=== PATIENT | male | born 1995 | race Two or more races ===

== ENCOUNTER 2017-01-17 08:40 | Emergency (ER) | payer MEDICAID ==
[~2017-01-17] VITALS: Ht 175.3 cm; Wt 56.7 kg
[2017-01-17 09:19] LABS: Basophils # (auto) 0 uL; Basophils % (auto) 0.5 % (0.0-2.0); Eosinophils # (auto) 0.2 uL; Eosinophils % (auto) 3.7 % (0.0-7.0); Hematocrit 43.8 % (41.0-53.0); Hemoglobin 15.3 g/dL (13.5-17.5); Lymphocytes # (auto) 2.5 uL; Lymphocytes % (auto) 37.5 % (10.0-50.0); Mean Corpuscular Hemoglobin 30.1 pg (28.0-32.0); Mean Corpuscular Hgb Conc. 34.8 g/dL (32.0-36.0); Mean Corpuscular Volume 86.4 fL (80.0-100.0); Mean Platelet Volume 8.8 fL (7.4-10.4); Monocytes # (auto) 0.7 uL; Monocytes % (auto) 10.7 % (0.0-12.0); Neutrophils # (auto) 3.2 uL; Neutrophils % (auto) 47.6 % (37.0-80.0); Platelet Count (auto) 277 10^3/uL (140-450); Red Cell Distribution Width 12.5 % (11.6-16.0); White Blood Cell 6.7 10^3/uL (4.4-10.8)
[2017-01-17 09:42] LABS: Albumin 4.1 g/dL (3.4-5.0); BUN/Creatinine Ratio 14.5; Bilirubin, Total 0.4 mg/dL (0.2-1.0); Calcium 8.7 mg/dL (8.5-10.1); Potassium 3.8 mmol/L (3.5-5.1); Total Protein 6.6 g/dL (6.4-8.2)
[2017-01-17 09:56] LABS: Urine Bilirubin Negative (Negative); Urine Blood Negative /uL (Negative); Urine Color Yellow (Yellow); Urine Nitrite Negative (Negative); Urine RBC 1 /hpf (0 - 3); Urine Squamous Epithelial Cell FEW /hpf (<5); Urine Urobilinogen Normal (Negative); Urine pH 5.5 (5.0-8.0)
[2017-01-17 09:57] LABS: Urine Glucose 4+ mg/dL (Normal); Urine Ketone 2+ (Negative)
[2017-01-17] MEDS ORDERED: SODIUM CHLORIDE 0.9% 1,000 ML IV ONE (12:07)
[2017-01-17 14:06] VITALS: BP 93/54
== END 2017-01-17 16:04 | disposition home or self-care (01) ==
LOC: ER 08:43
DX: E11.65 Type 2 diabetes mellitus with hyperglycemia (principal); Z88.0 Allergy status to penicillin
CPT/HCPCS: 36415; 71020; 80053; 81001; 82962; 83735; 84443; 85025; 96360; 99285; J7030

== ENCOUNTER 2017-01-19 22:42 | Inpatient (IN) | payer MEDICAID ==
[~2017-01-19] VITALS: Ht 175.3 cm; Wt 53.3 kg
[2017-01-19 23:58] LABS: Basophils # (auto) 0.1 uL; Basophils % (auto) 1.5 % (0.0-2.0); Eosinophils # (auto) 0.2 uL; Eosinophils % (auto) 2.4 % (0.0-7.0); Hematocrit 47.8 % (41.0-53.0); Hemoglobin 16.5 g/dL (13.5-17.5); Lymphocytes # (auto) 3.3 uL; Lymphocytes % (auto) 36.5 % (10.0-50.0); Mean Corpuscular Hgb Conc. 34.4 g/dL (32.0-36.0); Mean Corpuscular Volume 87.3 fL (80.0-100.0); Mean Platelet Volume 9.2 fL (7.4-10.4); Monocytes # (auto) 1.1 uL; Monocytes % (auto) 11.7 % (0.0-12.0); Neutrophils # (auto) 4.4 uL; Neutrophils % (auto) 47.9 % (37.0-80.0); Platelet Count (auto) 272 10^3/uL (140-450); Red Cell Distribution Width 11.9 % (11.6-16.0); White Blood Cell 9.1 10^3/uL (4.4-10.8)
[2017-01-20] VITALS (8 sets, daily range): BP systolic 100–112; BP diastolic 47–61
[2017-01-20 00:06] LABS: Albumin 4.6 g/dL (3.4-5.0); Calcium 8.9 mg/dL (8.5-10.1); Potassium 4.3 mmol/L (3.5-5.1)
[2017-01-20 00:09] LABS: Bilirubin, Total 0.5 mg/dL (0.2-1.0); Total Protein 7.6 g/dL (6.4-8.2)
[2017-01-20 00:15] LABS: BUN/Creatinine Ratio 14.4
[2017-01-20] MEDS ORDERED: SODIUM CHLORIDE 0.9% 2,000 ML IV ONE (00:15)
[2017-01-20] MEDS ORDERED: InsuLIN REG 1unit/0.01ml Soln (100units/ml) IV ONE (00:15)
[2017-01-20 01:25] LABS: Urine RBC None Seen /hpf (0 - 3)
[2017-01-20 01:50] LABS: Urine Bilirubin Negative (Negative); Urine Blood Negative /uL (Negative); Urine Color Yellow (Yellow); Urine Glucose 4+ mg/dL (Normal); Urine Ketone 1+ (Negative); Urine Nitrite Negative (Negative); Urine Urobilinogen Normal (Negative)
[2017-01-20] MEDS ORDERED: TEMAZEPAM 15 MG CAP PO PRN (03:15)
[2017-01-20] MEDS ORDERED: ACETAMINOPHEN 325 MG TAB PO PRN (03:15)
[2017-01-20] MEDS ORDERED: DEXTROSE (50%) 50ML SYRG IV PRN (03:15)
[2017-01-20] MEDS ORDERED: ONDANSETRON HCL 4 MG/2 ML VIAL IV PRN (03:15)
[2017-01-20] MEDS: ACCU-CHEK COMFORT CURVE STRIP VI SCH ×5 (03:39→19:48)
[2017-01-20] MEDS: InsuLIN REG 1unit/0.01ml Soln (100units/ml) SC SCH ×5 (03:39→19:52)
[2017-01-20] MEDS: SODIUM CHLORIDE 0.9% 1,000 ML IV SCH ×2 (03:42→15:43)
[2017-01-20] MEDS: FAMOTIDINE 20 MG TAB PO SCH ×2 (13:11→19:48)
[2017-01-20] MEDS ORDERED: INSUINJ37 SUBCUT ×2 (20:55)
[2017-01-20] MEDS ORDERED: METF-312 PO ×2 (20:55)
== END 2017-01-20 21:45 | disposition home or self-care (01) | DRG 420 ==
LOC: ER 22:47 → OVERFLOW 22:48 → WEST WING 01-20 04:30
PROVIDERS: ADMIT Nurse Practitioner; ATTEND Internal Medicine
DX: E10.65 Type 1 diabetes mellitus with hyperglycemia (principal); E86.0 Dehydration; Z83.3 Family history of diabetes mellitus; Z88.0 Allergy status to penicillin; Z87.898 Personal history of other specified conditions
CPT/HCPCS: 36415; 36600; 71010; 80053; 81001; 82010; 82805; 82962; 83036; 83735; 85025; 87081; 96361; 96374; J1815

== ENCOUNTER 2017-07-24 21:55 | Emergency (ER) | payer SELFPAY ==
[~2017-07-24] VITALS: Ht 175.3 cm; Wt 63.5 kg
[~2017-07-24 21:55] MED LIST: INSUINJ37 SUBCUT; METF-370 PO
[2017-07-24 22:08] VITALS: BP 113/76
== END 2017-07-25 07:42 | disposition left against medical advice (07) ==
LOC: EDBD 21:55 → ER 22:35
DX: F10.10 Alcohol abuse, uncomplicated (principal); Z53.21 Procedure and treatment not carried out due to patient leaving prior to being seen by health care provider
CPT/HCPCS: 82962; J7030

== ENCOUNTER 2017-12-24 13:27 | Emergency (ER) | payer MEDICAID ==
[~2017-12-24] VITALS: Ht 172.7 cm; Wt 63.5 kg
[2017-12-24] MEDS ORDERED: SODIUM CHLORIDE 0.9% 1,000 ML IV ONE ×2 (13:43)
[2017-12-24 13:54] VITALS: BP 107/91
[2017-12-24 14:52] LABS: Basophils # (auto) 0 uL; Basophils % (auto) 0.3 % (0.0-2.0); Eosinophils # (auto) 0.1 uL; Eosinophils % (auto) 1.3 % (0.0-7.0); Hemoglobin 15.8 g/dL (13.5-17.5); Lymphocytes # (auto) 1.3 uL; Mean Corpuscular Hemoglobin 30.5 pg (28.0-32.0); Mean Corpuscular Hgb Conc. 34.2 g/dL (32.0-36.0); Mean Corpuscular Volume 89.2 fL (80.0-100.0); Monocytes # (auto) 1.1 uL; Neutrophils # (auto) 8.3 uL; Neutrophils % (auto) 76.4 % (37.0-80.0); Nucleated Red Blood Cells % 0.1 %; Platelet Count (auto) 190 10^3/uL (140-450); Red Blood Cells 5.16 10^6/uL (4.5-5.90); Red Cell Distribution Width 13.1 % (11.8-14.3); White Blood Cell 10.8 10^3/uL (4.4-10.8)
[2017-12-24 15:12] LABS: Albumin 3.9 g/dL (3.4-5.0); BUN/Creatinine Ratio 23.7; Bilirubin, Total 0.3 mg/dL (0.2-1.0); Calcium 8.3 mg/dL (8.5-10.1); Total Protein 7.1 g/dL (6.4-8.2)
== END 2017-12-24 22:12 | disposition left against medical advice (07) ==
LOC: EDBD 13:27 → ER 13:27
DX: K52.9 Noninfective gastroenteritis and colitis, unspecified (principal); E11.9 Type 2 diabetes mellitus without complications; Z88.0 Allergy status to penicillin; R53.1 Weakness
CPT/HCPCS: 36415; 74176; 80053; 85025

== ENCOUNTER 2018-02-21 23:50 | Emergency (ER) | payer SELFPAY ==
[~2018-02-21] VITALS: Ht 172.7 cm; Wt 63.5 kg
[2018-02-22 00:07] VITALS: BP 120/66
[2018-02-22 00:32] LABS: Urine Bacteria NONE SEEN /hpf (None Seen); Urine Blood Negative /uL (Negative); Urine Specific Gravity 1.037 (1.001-1.035); Urine WBC <1 /hpf (0 - 3)
[2018-02-22 00:46] LABS: Amphetamine Screen, Urine POSITIVE (NEGATIVE); Barbiturate Scree,Urine NEGATIVE (NEGATIVE); Benzodiazephine Screen, Urine NEGATIVE (NEGATIVE); Cannabinoid Screen, Urine POSITIVE (NEGATIVE); Cocaine Screen, Urine NEGATIVE (NEGATIVE); Opiate Scree,Urine NEGATIVE (NEGATIVE); Phencyclidine Screen, Urine NEGATIVE (NEGATIVE)
[2018-02-22 01:02] LABS: Basophils # (auto) 0.1 uL; Basophils % (auto) 0.8 % (0.0-2.0); Eosinophils # (auto) 0.5 uL; Eosinophils % (auto) 5.3 % (0.0-7.0); Hematocrit 49.4 % (41.0-53.0); Hemoglobin 17.4 g/dL (13.5-17.5); Lymphocytes # (auto) 4.1 uL; Lymphocytes % (auto) 39.9 % (10.0-50.0); Mean Corpuscular Hemoglobin 31.5 pg (28.0-32.0); Mean Corpuscular Hgb Conc. 35.2 g/dL (32.0-36.0); Mean Corpuscular Volume 89.6 fL (80.0-100.0); Monocytes # (auto) 1.1 uL; Monocytes % (auto) 10.8 % (0.0-12.0); Neutrophils # (auto) 4.4 uL; Neutrophils % (auto) 43.2 % (37.0-80.0); Platelet Count (auto) 234 10^3/uL (140-450); Red Blood Cells 5.51 10^6/uL (4.5-5.90); Red Cell Distribution Width 13.5 % (11.8-14.3); White Blood Cell 10.2 10^3/uL (4.4-10.8)
[2018-02-22 01:16] LABS: Albumin 4.5 g/dL (3.4-5.0); BUN/Creatinine Ratio 16.1; Calcium 8.6 mg/dL (8.5-10.1)
[2018-02-22 01:20] LABS: Bilirubin, Total 0.4 mg/dL (0.2-1.0); Total Protein 7.6 g/dL (6.4-8.2)
== END 2018-02-22 02:00 | disposition left against medical advice (07) ==
LOC: ER 23:52
DX: R11.2 Nausea with vomiting, unspecified (principal); R10.84 Generalized abdominal pain; Z53.21 Procedure and treatment not carried out due to patient leaving prior to being seen by health care provider
CPT/HCPCS: 36415; 74176; 80053; 80307; 81001; 85025

== ENCOUNTER 2019-05-27 06:45 | Inpatient (IN) | payer MEDICAID ==
[~2019-05-27] VITALS: Ht 175.3 cm; Wt 55.1 kg
[2019-05-27 08:40] LABS: Basophils # (auto) 0.1 uL; Eosinophils # (auto) 0 uL; Hemoglobin 19.2 g/dL (13.5-17.5); Lymphocytes # (auto) 1.5 uL; Nucleated Red Blood Cells % 0.2 %
[2019-05-27 08:43] LABS: Basophils % (auto) 0.3 % (0.0-2.0); Mean Corpuscular Hemoglobin 31.2 pg (28.0-32.0); Mean Corpuscular Hgb Conc. 32.7 g/dL (32.0-36.0); Mean Corpuscular Volume 95.4 fL (80.0-100.0); Monocytes # (auto) 1.6 uL; Neutrophils # (auto) 16.3 uL; Neutrophils % (auto) 83.7 % (37.0-80.0); Platelet Count (auto) 345 10^3/uL (140-450); Red Blood Cells 6.16 10^6/uL (4.5-5.90); Red Cell Distribution Width 13.9 % (11.8-14.3); White Blood Cell 19.4 10^3/uL (4.4-10.8)
[2019-05-27 08:51] LABS: Hematocrit 58.8 % (41.0-53.0)
[2019-05-27] MEDS ORDERED: InsuLIN R (HUMAN) 100 UNITS in SODIUM CHL 0.9% 99 ML IV SCH ×2 (08:59→11:35)
[2019-05-27] MEDS ORDERED: SODIUM CHLORIDE 0.9% 1,000 ML IV ONE ×2 (08:59)
[2019-05-27] MEDS ORDERED: SODIUM CHLORIDE 0.9% 1,000 ML IV SCH ×4 (08:59→15:35)
[2019-05-27] MEDS: ACCU-CHEK COMFORT CURVE STRIP VI SCH ×7 (09:00→20:00)
[2019-05-27] MEDS ORDERED: DEXTROSE (50%) 50ML SYRG IV PRN ×3 (09:00→18:30)
[2019-05-27 09:04] LABS: Albumin 4.8 g/dL (3.4-5.0); Calcium 8.8 mg/dL (8.5-10.1)
[2019-05-27 09:12] LABS: Bilirubin, Total 0.6 mg/dL (0.2-1.0); Total Protein 9.3 g/dL (6.4-8.2)
[2019-05-27 09:18] LABS: Urine Bacteria NONE SEEN /hpf (None Seen); Urine Blood Negative /uL (Negative); Urine Specific Gravity 1.026 (1.001-1.035); Urine WBC 3 /hpf (0 - 3)
[2019-05-27 09:21] LABS: BUN/Creatinine Ratio 16.9
[2019-05-27 10:30] LABS: Basophils # (auto) 0 uL; Basophils % (auto) 0.1 % (0.0-2.0); Eosinophils # (auto) 0 uL; Hemoglobin 18.8 g/dL (13.5-17.5); Lymphocytes # (auto) 1.4 uL
[2019-05-27 10:33] LABS: Mean Corpuscular Hemoglobin 31.2 pg (28.0-32.0); Mean Corpuscular Hgb Conc. 32.7 g/dL (32.0-36.0); Mean Corpuscular Volume 95.5 fL (80.0-100.0); Monocytes % (auto) 5.6 % (0.0-12.0); Neutrophils % (auto) 86.3 % (37.0-80.0); Nucleated Red Blood Cells % 0.1 %; Platelet Count (auto) 302 10^3/uL (140-450); Red Blood Cells 6.01 10^6/uL (4.5-5.90); Red Cell Distribution Width 14.4 % (11.8-14.3); White Blood Cell 17.4 10^3/uL (4.4-10.8)
[2019-05-27 10:46] LABS: Hematocrit 57.4 % (41.0-53.0)
[2019-05-27 11:12] LABS: Potassium 5.5 mmol/L (3.5-5.1)
[2019-05-27 11:13] LABS: BUN/Creatinine Ratio 17.4; Calcium 7.9 mg/dL (8.5-10.1); Magnesium 2.5 mg/dL (1.6-2.6); Phosphorus 4.2 mg/dL (2.5-4.90)
[2019-05-27] MEDS ORDERED: cefTRIAXone 1GM/50ML D5W 50 ML IV ONE ×2 (11:45→12:15)
[2019-05-27] MEDS ORDERED: MORPHINE SULFATE 4 MG/ML SYR/VIAL IV PRN (11:45)
[2019-05-27] MEDS ORDERED: ACETAMINOPHEN 500 MG TAB PO PRN (11:45)
[2019-05-27] MEDS ORDERED: MORPHINE SULF INJ 2 MG/ML SYRINGE 1ML IV PRN (11:45)
[2019-05-27] MEDS ORDERED: PROMETHAZINE HCL 25 MG/ML 1ML IV PRN (11:45)
[2019-05-27] MEDS ORDERED: NITROGLYCERIN 0.4 MG SL TAB SL PRN (11:45)
[2019-05-27] MEDS ORDERED: traMADol HCL 50 MG TAB PO PRN (11:45)
[2019-05-27] MEDS: SODIUM CHLORIDE 0.9% 1,000 ML IV SCH ×4 (12:03→19:30)
[2019-05-27] MEDS: FAMOTIDINE (10MG/ML) 2ML VL IV SCH (12:10)
[2019-05-27 17:58] LABS: BUN/Creatinine Ratio 20.9; Calcium 7.8 mg/dL (8.5-10.1); Potassium 4.3 mmol/L (3.5-5.1)
--- NOTE | 2019-05-27 20:00 | NUR ---
RECEIVED PATIENT FROM ED, AWAKE, ALERT, ORIENTED X4, SPEAKS CLEARLY, AMBULATORY. ON TELEMETRY #14 SINUS RHYTHM AT 80'S. NO S/S OF RESPIRATORY DISTRESS, DENIES SOB AND CHEST PAIN. DENIES ABDOMINAL PAIN, NAUSEA AND VOMITING. SKIN IS INTACT. ORIENTED ON PLAN OF CARE. BED IS LOCKED AND IN LOWEST LEVEL, SIDE RAILS UP X2, CALL LIGHT WITHIN REACH. WILL CONTINUE TO MONITOR.
[2019-05-27 20:30] VITALS: BP 105/62
[2019-05-27] MEDS: InsuLIN REG 1unit/0.01ml Soln (100units/ml) SC SCH (20:48)
[2019-05-27 21:56] LABS: BUN/Creatinine Ratio 18.6; Calcium 7.6 mg/dL (8.5-10.1); Potassium 4.6 mmol/L (3.5-5.1)
[2019-05-27 22:00] VITALS: BP 105/62
[2019-05-28] MEDS: FAMOTIDINE (10MG/ML) 2ML VL IV SCH ×2 (00:30→11:57)
[2019-05-28] MEDS: InsuLIN REG 1unit/0.01ml Soln (100units/ml) SC SCH ×5 (00:31→16:00)
[2019-05-28] MEDS: SODIUM CHLORIDE 0.9% 1,000 ML IV SCH ×2 (02:41→14:15)
[2019-05-28 04:17] LABS: BUN/Creatinine Ratio 23.8; Calcium 7.8 mg/dL (8.5-10.1); Potassium 3.4 mmol/L (3.5-5.1)
[2019-05-28] MEDS: ACCU-CHEK COMFORT CURVE STRIP VI SCH ×5 (04:21→15:31)
[2019-05-28 04:30] VITALS: BP 96/49
[2019-05-28 06:16] VITALS: BP 110/77
--- NOTE | 2019-05-28 07:25 | NUR ---
CARE ENDORSED TO AM SHIFT RN
[2019-05-28 07:57] LABS: BUN/Creatinine Ratio 23.4; Calcium 7.6 mg/dL (8.5-10.1); Potassium 3.4 mmol/L (3.5-5.1)
[2019-05-28 08:00] VITALS: BP 113/66
--- NOTE | 2019-05-28 08:00 | NUR ---
Opening note Assumed care of patient awake and alert. No S/S of distress noted or complaints of pain. Pt updated on POC for the day and all questions answered. Bed is in lowest, locked position with side rails up x2 and call light within reach. Will continue to monitor Q1h and PRN.
[2019-05-28] MEDS ORDERED: cefTRIAXone 1GM/50ML D5W 50 ML IV SCH ×2 (09:00)
[2019-05-28] MEDS ORDERED: POTASSIUM CHL 20 Meq TABLET PO ONE (10:45)
[2019-05-28 11:06] LABS: Basophils # (auto) 0 uL; Basophils % (auto) 0.5 % (0.0-2.0); Eosinophils # (auto) 0.1 uL; Eosinophils % (auto) 1.8 % (0.0-7.0); Hematocrit 40.8 % (41.0-53.0); Hemoglobin 13.8 g/dL (13.5-17.5); Lymphocytes # (auto) 1.6 uL; Lymphocytes % (auto) 21.8 % (10.0-50.0); Mean Corpuscular Hemoglobin 31.1 pg (28.0-32.0); Mean Corpuscular Hgb Conc. 33.9 g/dL (32.0-36.0); Mean Corpuscular Volume 91.7 fL (80.0-100.0); Monocytes # (auto) 0.8 uL; Monocytes % (auto) 10.9 % (0.0-12.0); Neutrophils # (auto) 4.8 uL; Platelet Count (auto) 207 10^3/uL (140-450); Red Blood Cells 4.45 10^6/uL (4.5-5.90); Red Cell Distribution Width 13.8 % (11.8-14.3); White Blood Cell 7.4 10^3/uL (4.4-10.8)
[2019-05-28 12:00] VITALS: BP 105/62
--- NOTE | 2019-05-28 12:00 | NUR ---
ROUNDS Dr Gonzales at bedside for rounds, new orders received and followed through. Patient updated on plan of care, verbalized understanding.
[2019-05-28] MEDS ORDERED: INSU100I4 SC (12:13)
[2019-05-28] MEDS ORDERED: INSU1INJ19 SC (12:13)
--- NOTE | 2019-05-28 13:15 | NUR ---
Message left for on-call Pony Ride Attendant to return call regarding home health for safety evaluation.
--- NOTE | 2019-05-28 13:47 | NUR ---
I called refrigeration houseman [facility] Automobile Racer Mckenzie Aviles [phone] and left message asking for home health authorization as well as to let her know that patient needs to be referred to their [facility]-awaiting return call.
--- NOTE | 2019-05-28 15:12 | NUR ---
I called [facility] Ore Dressing Engineer Mckenzie Aviles [phone] a second time (no return call from the first time)-left another message asking for authorization for home health-awaiting return call.
--- NOTE | 2019-05-28 16:16 | NUR ---
Return call received from RAGHU Nathan, Media Developer. Per Venita, [facility] will follow up for home safety evaluation. Contact information for and [facility] will be provided and included in patient's discharge paperwork.
--- NOTE | 2019-05-28 16:18 | NUR ---
All requested information faxed to [facility] per RAGHU Nathan, Scoreboard Operator.
--- NOTE | 2019-05-28 16:20 | NUR ---
I spoke with Merna at [facility], she said they will see patient on Thursday-I provided her with auth number [id number] provided this information to nurse Marge as well as giving her the phone number for [place] to give to the patient. I also provided Marge with the following resource numbers to give to the patient-[facility] [phone] and [facility] [phone].
[2019-05-28 16:22] VITALS: BP 113/66
== END 2019-05-28 19:09 | disposition home health service (06) | DRG 469 ==
LOC: ER 06:45 → TELE 06:46 → TELE-EAST 20:44
PROVIDERS: ADMIT Internal Medicine; ATTEND Internal Medicine
DX: N17.9 Acute kidney failure, unspecified (principal); E10.10 Type 1 diabetes mellitus with ketoacidosis without coma; E87.5 Hyperkalemia; E87.1 Hypo-osmolality and hyponatremia; F17.210 Nicotine dependence, cigarettes, uncomplicated; F10.20 Alcohol dependence, uncomplicated; Y90.9 Presence of alcohol in blood, level not specified; D72.829 Elevated white blood cell count, unspecified; Z88.0 Allergy status to penicillin; Z79.4 Long term (current) use of insulin; Z83.3 Family history of diabetes mellitus; Z91.14 Patient's other noncompliance with medication regimen; R63.6 Underweight; Z68.1 Body mass index [BMI] 19.9 or less, adult
CPT/HCPCS: 36415; 36600; 71045; 74176; 80048; 80053; 81001; 82010; 82805; 82962; 83036; 83690; 83735; 83930; 84100; 85025; 87040; 87086; 96361; 96365; G0378; J0696; J1815; J3490

== ENCOUNTER 2019-08-06 15:42 | Emergency (ER) | payer MEDICAID ==
[~2019-08-06] VITALS: Ht 177.8 cm; Wt 63.5 kg
[~2019-08-06 15:42] MED LIST changes: +INSU100I4 SC; +INSU1INJ19 SC; -INSUINJ37 SUBCUT; -METF-370 PO
[2019-08-06 16:11] LABS: Basophils # (auto) 0 uL; Basophils % (auto) 1.2 % (0.0-2.0); Eosinophils # (auto) 0.1 uL; Eosinophils % (auto) 1.9 % (0.0-7.0); Hematocrit 44.2 % (41.0-53.0); Hemoglobin 15.1 g/dL (13.5-17.5); Lymphocytes # (auto) 0.7 uL; Lymphocytes % (auto) 19.9 % (10.0-50.0); Mean Corpuscular Hemoglobin 31.7 pg (28.0-32.0); Mean Corpuscular Hgb Conc. 34.1 g/dL (32.0-36.0); Monocytes # (auto) 0.4 uL; Monocytes % (auto) 11.1 % (0.0-12.0); Neutrophils # (auto) 2.5 uL; Neutrophils % (auto) 65.9 % (37.0-80.0); Nucleated Red Blood Cells % 0.1 %; Platelet Count (auto) 218 10^3/uL (140-450); Red Blood Cells 4.75 10^6/uL (4.5-5.90); Red Cell Distribution Width 13.7 % (11.8-14.3); White Blood Cell 3.7 10^3/uL (4.4-10.8)
[2019-08-06 16:43] LABS: Albumin 3.9 g/dL (3.4-5.0); Calcium 7.9 mg/dL (8.5-10.1); Potassium 4.2 mmol/L (3.5-5.1)
[2019-08-06 16:46] LABS: BUN/Creatinine Ratio 18.1; Bilirubin, Total 0.5 mg/dL (0.2-1.0); Total Protein 6.8 g/dL (6.4-8.2)
[2019-08-06 16:58] LABS: Amphetamine Screen, Urine POSITIVE (NEGATIVE); Barbiturate Scree,Urine NEGATIVE (NEGATIVE); Benzodiazephine Screen, Urine NEGATIVE (NEGATIVE); Cannabinoid Screen, Urine NEGATIVE (NEGATIVE); Cocaine Screen, Urine NEGATIVE (NEGATIVE); Opiate Scree,Urine NEGATIVE (NEGATIVE); Phencyclidine Screen, Urine NEGATIVE (NEGATIVE)
[2019-08-06] MEDS ORDERED: SODIUM CHLORIDE 0.9% 1,000 ML IVB ONE (18:22)
[2019-08-06] MEDS ORDERED: ONDANSETRON HCL 4 MG/2 ML VIAL IV ONE (18:30)
[2019-08-06] MEDS: FOLIC ACID 1 MG, MULTIPLE VITAMIN 10 ML, MAGNESIUM SULF SDV 50% 8 MEQ, THIAMINE INJ 100... INJ ONE ×10 (19:00→19:38)
[2019-08-06] MEDS ORDERED: InsuLIN REG 1unit/0.01ml Soln (100units/ml) SC ONE (22:15)
[2019-08-06 23:43] VITALS: BP 109/61
== END 2019-08-06 23:58 | disposition home or self-care (01) ==
LOC: EDBD 15:42 → ER 15:42
DX: E11.65 Type 2 diabetes mellitus with hyperglycemia (principal); F10.10 Alcohol abuse, uncomplicated; F15.10 Other stimulant abuse, uncomplicated; F17.210 Nicotine dependence, cigarettes, uncomplicated; F12.10 Cannabis abuse, uncomplicated; Z88.0 Allergy status to penicillin
CPT/HCPCS: 36415; 80053; 80307; 80320; 82962; 83735; 85025; 94761; 96361; 96365; 96366; 96372; 96375; 99283; J1815; J2405; J3411; J3475; J7030

== ENCOUNTER 2019-10-24 10:11 | Emergency (ER) | payer MEDICAID ==
[~2019-10-24] VITALS: Ht 175.3 cm; Wt 59.0 kg
[2019-10-24] MEDS ORDERED: InsuLIN R (HUMAN) 100 UNITS in SODIUM CHL 0.9% 99 ML IV SCH (11:26)
[2019-10-24] MEDS ORDERED: SODIUM CHLORIDE 0.9% 1,000 ML IV ONE ×2 (11:26→14:00)
[2019-10-24] MEDS ORDERED: ONDANSETRON HCL 4 MG/2 ML VIAL IV ONE (11:30)
[2019-10-24] MEDS ORDERED: DEXTROSE (50%) 50ML SYRG IV PRN (11:30)
[2019-10-24 11:33] LABS: Basophils # (auto) 0.1 uL; Basophils % (auto) 0.4 % (0.0-2.0); Eosinophils # (auto) 0 uL; Hemoglobin 18.5 g/dL (13.5-17.5); Lymphocytes # (auto) 0.8 uL; Lymphocytes % (auto) 4.3 % (10.0-50.0)
[2019-10-24 11:37] LABS: Mean Corpuscular Hgb Conc. 31.7 g/dL (32.0-36.0); Mean Corpuscular Volume 100.8 fL (80.0-100.0); Monocytes # (auto) 1.7 uL; Monocytes % (auto) 8.9 % (0.0-12.0); Neutrophils # (auto) 16.9 uL; Neutrophils % (auto) 86.4 % (37.0-80.0); Platelet Count (auto) 337 10^3/uL (140-450); Red Blood Cells 5.78 10^6/uL (4.5-5.90); Red Cell Distribution Width 13.8 % (11.8-14.3); White Blood Cell 19.6 10^3/uL (4.4-10.8)
[2019-10-24] MEDS: ACCU-CHEK COMFORT CURVE STRIP VI SCH ×8 (12:00→22:30)
[2019-10-24 12:25] LABS: Hematocrit 58.2 % (41.0-53.0)
[2019-10-24] MEDS ORDERED: NITROGLYCERIN 0.4 MG SL TAB SL PRN (14:00)
[2019-10-24] MEDS ORDERED: MORPHINE SULF INJ 2 MG/ML SYRINGE 1ML IV PRN (14:00)
[2019-10-24 15:39] LABS: BUN/Creatinine Ratio 16.4; Bilirubin, Total 0.5 mg/dL (0.2-1.0); Calcium 7.5 mg/dL (8.5-10.1); Total Protein 7.9 g/dL (6.4-8.2)
[2019-10-24 15:40] LABS: Albumin 4.3 g/dL (3.4-5.0)
[2019-10-24 17:25] LABS: Urine WBC None Seen /hpf (0 - 3)
[2019-10-24 17:38] LABS: Urine Bacteria NONE SEEN /hpf (None Seen); Urine Blood Negative /uL (Negative); Urine Specific Gravity 1.004 (1.001-1.035)
[2019-10-24] MEDS: SODIUM CHLORIDE 0.9% 1,000 ML IV SCH (19:51)
[2019-10-24 20:16] LABS: Potassium 4.3 mmol/L (3.5-5.1)
[2019-10-24 20:17] LABS: BUN/Creatinine Ratio 17.7; Calcium 7.7 mg/dL (8.5-10.1)
[2019-10-25] MEDS: ACCU-CHEK COMFORT CURVE STRIP VI SCH ×9 (01:41→12:19)
[2019-10-25] MEDS: SODIUM CHLORIDE 0.9% 1,000 ML IV SCH ×2 (02:35→09:33)
[2019-10-25 02:41] LABS: BUN/Creatinine Ratio 21.1; Calcium 7.9 mg/dL (8.5-10.1)
[2019-10-25 07:51] LABS: Basophils # (auto) 0 uL; Basophils % (auto) 0.1 % (0.0-2.0); Eosinophils # (auto) 0 uL; Eosinophils % (auto) 0.2 % (0.0-7.0); Hematocrit 41.4 % (41.0-53.0); Hemoglobin 14.4 g/dL (13.5-17.5); Lymphocytes # (auto) 0.6 uL; Lymphocytes % (auto) 4.7 % (10.0-50.0); Mean Corpuscular Hgb Conc. 34.7 g/dL (32.0-36.0); Mean Corpuscular Volume 92.1 fL (80.0-100.0); Monocytes # (auto) 1.3 uL; Monocytes % (auto) 9.6 % (0.0-12.0); Neutrophils # (auto) 11.1 uL; Neutrophils % (auto) 85.4 % (37.0-80.0); Platelet Count (auto) 232 10^3/uL (140-450); Red Cell Distribution Width 13.1 % (11.8-14.3); White Blood Cell 13.1 10^3/uL (4.4-10.8)
[2019-10-25] MEDS ORDERED: DEXTROSE (50%) 50ML SYRG IV PRN (08:00)
[2019-10-25 08:11] LABS: Calcium 7.7 mg/dL (8.5-10.1); Potassium 4.4 mmol/L (3.5-5.1)
[2019-10-25] MEDS: InsuLIN REG 1unit/0.01ml Soln (100units/ml) SC SCH ×2 (08:50→12:18)
[2019-10-25] MEDS ORDERED: FOLIC ACID 1 MG, MULTIPLE VITAMIN 10 ML, MAGNESIUM SULF SDV 50% 8 MEQ, THIAMINE INJ 100... INJ SCH ×5 (12:00)
[2019-10-25 12:50] VITALS: BP 76/36
== END 2019-10-25 15:20 | disposition home or self-care (01) ==
LOC: ER 10:11 → UNDOADMIN 10:12 → TELE 10:12 → ER 10-25 15:20
DX: E11.10 Type 2 diabetes mellitus with ketoacidosis without coma (principal); F12.10 Cannabis abuse, uncomplicated; Z88.0 Allergy status to penicillin; Z79.4 Long term (current) use of insulin
CPT/HCPCS: 36415; 36600; 71046; 80048; 80053; 81001; 82010; 82805; 82962; 83036; 83735; 83930; 84100; 85025; 96361; 96365; 96366; 96367; 96372; 96375; 99291; J1815; J2405; J3411; J3475; J7030; 96374; G0378

== ENCOUNTER 2020-03-21 02:50 | Inpatient (IN) | payer MEDICAID ==
[~2020-03-21] VITALS: Ht 175.3 cm; Wt 63.6 kg
[2020-03-21] MEDS ORDERED: MORPHINE SULFATE 4 MG/ML SYR/VIAL IV ONE (03:15)
[2020-03-21] MEDS ORDERED: ONDANSETRON HCL 4 MG/2 ML VIAL IV ONE (03:15)
[2020-03-21] MEDS ORDERED: SODIUM CHLORIDE 0.9% 2,000 ML IV ONE (03:15)
[2020-03-21] MEDS ORDERED: InsuLIN REG 1unit/0.01ml Soln (100units/ml) IV ONE (03:15)
[2020-03-21 04:17] LABS: Hematocrit 53.2 % (41.0-53.0); Mean Corpuscular Hemoglobin 31.4 pg (28.0-32.0); Mean Corpuscular Volume 98.3 fL (80.0-100.0); Platelet Count (auto) 274 10^3/uL (140-450); Red Blood Cells 5.42 10^6/uL (4.5-5.90); White Blood Cell 18.7 10^3/uL (4.4-10.8)
[2020-03-21 04:23] LABS: Basophils % (manual) 0 (0.0-2.0); Blast Cells 0; Eosinophils % (manual) 0 (0-7); Myelocytes % 0; Promyelocytes % 0; Reactive Lymphocytes 0
[2020-03-21 04:38] LABS: Calcium 7.9 mg/dL (8.5-10.1); Potassium 4.8 mmol/L (3.5-5.1)
[2020-03-21 04:39] LABS: Band Neutrophils % (manual) 7; Lymphocytes % (manual) 7 (10.0-50.0); Metamyelocytes % 2; Monocytes % (manual) 6 (0-12)
[2020-03-21 04:44] LABS: Albumin 4.4 g/dL (3.4-5.0); BUN/Creatinine Ratio 16.7; Bilirubin, Total 0.5 mg/dL (0.2-1.0); Total Protein 8.1 g/dL (6.4-8.2)
[2020-03-21] MEDS ORDERED: DEXTROSE (50%) 50ML SYRG IV PRN ×2 (05:00→15:45)
[2020-03-21] MEDS ORDERED: SODIUM BICARBONATE 8.4 % INJ 50ML VIAL IV ONE ×2 (05:00→05:15)
[2020-03-21] MEDS ORDERED: SODIUM CHLORIDE 0.9% 1,000 ML IV SCH ×3 (05:01→10:56)
[2020-03-21] MEDS ORDERED: InsuLIN REG 1unit/0.01ml Soln (100units/ml) ONE (05:08)
[2020-03-21] MEDS ORDERED: NITROGLYCERIN 0.4 MG SL TAB SL PRN (05:15)
[2020-03-21] MEDS ORDERED: ONDANSETRON HCL 4 MG/2 ML VIAL IV PRN (05:15)
[2020-03-21] MEDS ORDERED: TEMAZEPAM 15 MG CAP PO PRN (05:15)
[2020-03-21] MEDS ORDERED: MORPHINE SULF INJ 2 MG/ML SYRINGE 1ML IV PRN (05:15)
[2020-03-21] MEDS: SODIUM CHLORIDE 0.9% 1,000 ML IV SCH ×4 (05:44→17:01)
[2020-03-21] MEDS: InsuLIN R (HUMAN) 100 UNITS in SODIUM CHL 0.9% 99 ML IV SCH ×2 (05:46→06:55)
[2020-03-21 05:53] LABS: Urine WBC None Seen /hpf (0 - 3)
[2020-03-21 06:23] LABS: Urine Bacteria NONE SEEN /hpf (None Seen); Urine Blood TRACE /uL (Negative); Urine Hyaline Cast FEW /lpf (0 - 2); Urine Mucus FEW (None Seen); Urine Specific Gravity 1.019 (1.001-1.035)
[2020-03-21] MEDS: ACCU-CHEK COMFORT CURVE STRIP VI SCH ×9 (06:56→20:26)
[2020-03-21 07:48] LABS: BUN/Creatinine Ratio 16.2; Calcium 7.9 mg/dL (8.5-10.1); Potassium 4.8 mmol/L (3.5-5.1)
[2020-03-21] MEDS ORDERED: PANTOPRAZOLE 40 MG/10 ML VIAL INJ IV SCH (10:00)
[2020-03-21 10:58] LABS: Basophils # (auto) 0 10 ^3/uL (0-0.2); Basophils % (auto) 0.3 % (0.0-2.0); Eosinophils # (auto) 0 10 ^3/uL (0-0.8); Eosinophils % (auto) 0.1 % (0.0-7.0); Hematocrit 42.5 % (41.0-53.0); Hemoglobin 14.1 g/dL (13.5-17.5); Lymphocytes # (auto) 1.5 10 ^3/uL (0.4-5.4); Lymphocytes % (auto) 12.3 % (10.0-50.0); Mean Corpuscular Hemoglobin 31.2 pg (28.0-32.0); Mean Corpuscular Hgb Conc. 33.2 g/dL (32.0-36.0); Mean Corpuscular Volume 93.8 fL (80.0-100.0); Monocytes # (auto) 1.6 10 ^3/uL (0-1.3); Monocytes % (auto) 12.6 % (0.0-12.0); Neutrophils # (auto) 9.3 10 ^3/uL (1.6-8.6); Neutrophils % (auto) 74.7 % (37.0-80.0); Nucleated Red Blood Cells % 0.1 %; Platelet Count (auto) 235 10^3/uL (140-450); Red Blood Cells 4.53 10^6/uL (4.5-5.90); Red Cell Distribution Width 13.5 % (11.8-14.3); White Blood Cell 12.5 10^3/uL (4.4-10.8)
[2020-03-21 11:21] LABS: Albumin 3.1 g/dL (3.4-5.0); Calcium 6.9 mg/dL (8.5-10.1); Potassium 4.2 mmol/L (3.5-5.1)
[2020-03-21 11:24] LABS: BUN/Creatinine Ratio 14.7; Bilirubin, Total 0.5 mg/dL (0.2-1.0); Total Protein 6.1 g/dL (6.4-8.2)
[2020-03-21] MEDS: SODIUM BICARBONATE 50ML VIAL 150 ML in D5W 5% 1,000 ML IV SCH ×2 (11:27→22:18)
[2020-03-21] MEDS: InsuLIN REG 1unit/0.01ml Soln (100units/ml) SC SCH ×2 (16:00→20:27)
[2020-03-21 17:58] VITALS: BP 92/53
[2020-03-21 19:39] LABS: BUN/Creatinine Ratio 14.7; Calcium 7.5 mg/dL (8.5-10.1); Potassium 4.1 mmol/L (3.5-5.1)
[2020-03-21 20:00] VITALS: BP 98/57
[2020-03-21 22:00] VITALS: BP 98/57
[2020-03-21] MEDS ORDERED: INSULIN LANTUS (GLARGINE) 1 /0.01ml (100units/ml) SC SCH (22:00)
[2020-03-21 23:38] LABS: BUN/Creatinine Ratio 13.9; Calcium 7.4 mg/dL (8.5-10.1); Potassium 3.5 mmol/L (3.5-5.1)
[2020-03-22] MEDS: ACCU-CHEK COMFORT CURVE STRIP VI SCH (00:03)
[2020-03-22] MEDS: InsuLIN REG 1unit/0.01ml Soln (100units/ml) SC SCH (00:12)
== END 2020-03-22 00:45 | disposition left against medical advice (07) | DRG 420 ==
LOC: EDBD 02:50 → ER 02:55 → TELE 02:56 → TELE-WESTW 17:32
PROVIDERS: ADMIT Nurse Practitioner; ATTEND Internal Medicine Nephrology
DX: E10.10 Type 1 diabetes mellitus with ketoacidosis without coma (principal); D72.829 Elevated white blood cell count, unspecified; E86.0 Dehydration; Z88.0 Allergy status to penicillin; Z79.4 Long term (current) use of insulin; Z83.3 Family history of diabetes mellitus
CPT/HCPCS: 36415; 36600; 80048; 80053; 81001; 82010; 82805; 82962; 83036; 85007; 85025; 85027; 87040; 96361; 96374; 96375; C9113; G0378; J1815; J2405

== ENCOUNTER 2020-07-12 18:13 | Emergency (ER) | payer MEDICAID ==
[~2020-07-12] VITALS: Ht 177.8 cm; Wt 72.6 kg
[2020-07-12 18:17] VITALS: BP 106/61
== END 2020-07-12 20:30 | disposition home or self-care (01) ==
LOC: EDBD 18:13 → ER 18:13
DX: R10.9 Unspecified abdominal pain (principal); F19.10 Other psychoactive substance abuse, uncomplicated; E11.9 Type 2 diabetes mellitus without complications; Z88.0 Allergy status to penicillin

== ENCOUNTER 2020-07-22 19:46 | Inpatient (IN) | payer MEDICAID ==
[~2020-07-22] VITALS: Ht 172.7 cm; Wt 58.8 kg
[2020-07-22] MEDS ORDERED: SODIUM CHLORIDE 0.9% 1,000 ML IV ONE (20:45)
[2020-07-22 21:17] LABS: Urine Bacteria NONE SEEN /hpf (None Seen); Urine Blood Negative /uL (Negative); Urine Specific Gravity 1.024 (1.001-1.035); Urine WBC 1 /hpf (0 - 3)
[2020-07-22 22:07] LABS: Albumin 4.2 g/dL (3.4-5.0); BUN/Creatinine Ratio 11.9; Calcium 8.3 mg/dL (8.5-10.1); Potassium 4.1 mmol/L (3.5-5.1)
[2020-07-22 22:10] LABS: Bilirubin, Total 0.8 mg/dL (0.2-1.0); Total Protein 8.1 g/dL (6.4-8.2)
[2020-07-22 22:11] LABS: Basophils # (auto) 0.1 10 ^3/uL (0-0.2); Basophils % (auto) 0.4 % (0.0-2.0); Eosinophils # (auto) 0 10 ^3/uL (0-0.8); Hematocrit 50.4 % (41.0-53.0); Hemoglobin 16.5 g/dL (13.5-17.5); Lymphocytes # (auto) 0.5 10 ^3/uL (0.4-5.4); Lymphocytes % (auto) 3.9 % (10.0-50.0); Mean Corpuscular Hemoglobin 31.3 pg (28.0-32.0); Mean Corpuscular Hgb Conc. 32.7 g/dL (32.0-36.0); Mean Corpuscular Volume 95.7 fL (80.0-100.0); Monocytes # (auto) 1.4 10 ^3/uL (0-1.3); Monocytes % (auto) 11.1 % (0.0-12.0); Neutrophils % (auto) 84.6 % (37.0-80.0); Nucleated Red Blood Cells % 0.2 %; Platelet Count (auto) 408 10^3/uL (140-450); Red Blood Cells 5.27 10^6/uL (4.5-5.90); Red Cell Distribution Width 12.9 % (11.8-14.3)
[2020-07-22] MEDS: SODIUM CHLORIDE 0.9% 1,000 ML IV SCH (22:48)
[2020-07-22] MEDS: InsuLIN R (HUMAN) 100 UNITS in SODIUM CHL 0.9% 99 ML IV SCH (22:48)
[2020-07-22] MEDS ORDERED: InsuLIN REG 1unit/0.01ml Soln (100units/ml) IV ONE (23:00)
[2020-07-22] MEDS ORDERED: DEXTROSE (50%) 50ML SYRG IV PRN (23:00)
[2020-07-22] MEDS ORDERED: SODIUM BICARBONATE 8.4 % INJ 50ML VIAL IV ONE (23:15)
[2020-07-22] MEDS ORDERED: SODIUM BICARBONATE 8.4% INJ 50ML SYRINGE ONE ×2 (23:24→23:30)
[2020-07-22] MEDS ORDERED: MORPHINE SULFATE 4 MG/ML SYR/VIAL IV ONE (23:30)
[2020-07-22] MEDS ORDERED: ONDANSETRON HCL 4 MG/2 ML VIAL IV ONE (23:30)
[2020-07-22 23:31] LABS: Magnesium 2.4 mg/dL (1.6-2.6); Phosphorus 5.7 mg/dL (2.5-4.90)
[2020-07-23] MEDS: InsuLIN R (HUMAN) 100 UNITS in SODIUM CHL 0.9% 99 ML IV SCH ×3 (00:23→11:40)
[2020-07-23] MEDS ORDERED: ONDANSETRON HCL 4 MG/2 ML VIAL IV PRN (00:45)
[2020-07-23] MEDS: SODIUM CHLORIDE 0.9% 1,000 ML IV SCH ×5 (00:48→20:15)
[2020-07-23 01:30] LABS: Basophils # (auto) 0 10 ^3/uL (0-0.2); Basophils % (auto) 0.3 % (0.0-2.0); Eosinophils # (auto) 0 10 ^3/uL (0-0.8); Hematocrit 47.1 % (41.0-53.0); Hemoglobin 15.5 g/dL (13.5-17.5); Lymphocytes # (auto) 0.6 10 ^3/uL (0.4-5.4); Lymphocytes % (auto) 4.8 % (10.0-50.0); Mean Corpuscular Hemoglobin 31.4 pg (28.0-32.0); Mean Corpuscular Volume 95.1 fL (80.0-100.0); Monocytes # (auto) 1.4 10 ^3/uL (0-1.3); Monocytes % (auto) 11.4 % (0.0-12.0); Neutrophils # (auto) 10.3 10 ^3/uL (1.6-8.6); Neutrophils % (auto) 83.5 % (37.0-80.0); Platelet Count (auto) 358 10^3/uL (140-450); Red Blood Cells 4.95 10^6/uL (4.5-5.90); Red Cell Distribution Width 12.8 % (11.8-14.3); White Blood Cell 12.3 10^3/uL (4.4-10.8)
[2020-07-23 01:53] LABS: BUN/Creatinine Ratio 15.7; Magnesium 2.3 mg/dL (1.6-2.6); Potassium 3.7 mmol/L (3.5-5.1)
[2020-07-23] MEDS ORDERED: SODIUM CHLORIDE 0.9% 1,000 ML IV SCH (02:48)
[2020-07-23 07:07] LABS: BUN/Creatinine Ratio 12.4; Calcium 7.2 mg/dL (8.5-10.1); Potassium 3.9 mmol/L (3.5-5.1)
[2020-07-23] MEDS: ACCU-CHEK COMFORT CURVE STRIP VI SCH ×4 (09:49→22:03)
[2020-07-23 11:29] LABS: Calcium 7.2 mg/dL (8.5-10.1); Potassium 3.4 mmol/L (3.5-5.1)
[2020-07-23 11:35] LABS: BUN/Creatinine Ratio 13.4
[2020-07-23] MEDS ORDERED: INSULIN LANTUS (GLARGINE) 1 /0.01ml (100units/ml) SC ONE (12:15)
[2020-07-23] MEDS ORDERED: DEXTROSE (50%) 50ML SYRG IV PRN (12:15)
[2020-07-23] MEDS: InsuLIN REG 1unit/0.01ml Soln (100units/ml) SC SCH (17:00)
[2020-07-23 21:48] LABS: BUN/Creatinine Ratio 11.2; Calcium 7.1 mg/dL (8.5-10.1); Potassium 3.6 mmol/L (3.5-5.1)
[2020-07-23 22:00] VITALS: BP 108/67
[2020-07-23] MEDS ORDERED: InsuLIN REG 1unit/0.01ml Soln (100units/ml) SC SCH (22:00)
[2020-07-23] MEDS: MORPHINE SULF INJ 2 MG/ML SYRINGE 1ML IV PRN (22:04)
[2020-07-23 22:28] VITALS: BP 108/67
[2020-07-24] MEDS: SODIUM CHLORIDE 0.9% 1,000 ML IV SCH (00:48)
[2020-07-24 05:25] VITALS: BP 115/64
[2020-07-24] MEDS: InsuLIN REG 1unit/0.01ml Soln (100units/ml) SC SCH ×3 (06:27→16:34)
[2020-07-24] MEDS: ACCU-CHEK COMFORT CURVE STRIP VI SCH ×3 (06:27→16:34)
[2020-07-24 06:43] LABS: Basophils # (auto) 0 10 ^3/uL (0-0.2); Basophils % (auto) 0.8 % (0.0-2.0); Eosinophils # (auto) 0.2 10 ^3/uL (0-0.8); Eosinophils % (auto) 3.7 % (0.0-7.0); Hematocrit 39.6 % (41.0-53.0); Hemoglobin 13.6 g/dL (13.5-17.5); Lymphocytes # (auto) 0.8 10 ^3/uL (0.4-5.4); Lymphocytes % (auto) 14.9 % (10.0-50.0); Mean Corpuscular Hemoglobin 31.6 pg (28.0-32.0); Mean Corpuscular Hgb Conc. 34.2 g/dL (32.0-36.0); Mean Corpuscular Volume 92.4 fL (80.0-100.0); Monocytes % (auto) 17.8 % (0.0-12.0); Neutrophils # (auto) 3.6 10 ^3/uL (1.6-8.6); Neutrophils % (auto) 62.8 % (37.0-80.0); Nucleated Red Blood Cells % 0.2 %; Platelet Count (auto) 300 10^3/uL (140-450); Red Blood Cells 4.29 10^6/uL (4.5-5.90); Red Cell Distribution Width 12.6 % (11.8-14.3); White Blood Cell 5.7 10^3/uL (4.4-10.8)
[2020-07-24 06:52] LABS: BUN/Creatinine Ratio 11.8; Calcium 7.5 mg/dL (8.5-10.1)
[2020-07-24 08:00] VITALS: BP 129/70
[2020-07-24] MEDS: MORPHINE SULF INJ 2 MG/ML SYRINGE 1ML IV PRN (08:38)
[2020-07-24] MEDS ORDERED: INSULIN LANTUS (GLARGINE) 1 /0.01ml (100units/ml) SC SCH (11:00)
[2020-07-24] MEDS: POTASSIUM CHL 20MEQ/100ML 100 ML IV SCH ×3 (11:08→16:00)
[2020-07-24 13:00] VITALS: BP 119/73
[2020-07-24] MEDS ORDERED: ACETAMINOPHEN 325 MG TAB PO PRN (14:15)
[2020-07-24 17:11] VITALS: BP 121/71
[2020-07-24] MEDS ORDERED: POTASSIUM CHL 20MEQ/100ML 100 ML IV SCH (21:00)
== END 2020-07-24 18:43 | disposition left against medical advice (07) | DRG 420 ==
LOC: ER 19:46 → EDBD 19:46 → TELE 19:47 → TELE-CENTR 07-23 19:45
PROVIDERS: ADMIT Hospitalist; ATTEND Internal Medicine Pulmonary Disease
DX: E10.10 Type 1 diabetes mellitus with ketoacidosis without coma (principal); Z83.3 Family history of diabetes mellitus; Z79.4 Long term (current) use of insulin; Z88.0 Allergy status to penicillin; Z59.0 Homelessness
CPT/HCPCS: 36415; 36600; 71045; 80048; 80053; 81001; 82010; 82805; 82962; 83036; 83735; 83930; 84100; 85025; 93005; 99291; G0378; J1815; J2405; J3480

== ENCOUNTER 2021-03-03 23:49 | Inpatient (IN) | payer MEDICAID ==
[~2021-03-03] VITALS: Ht 172.7 cm; Wt 68.0 kg
[2021-03-04] MEDS ORDERED: SODIUM CHLORIDE 0.9% 1,000 ML IV ONE ×2 (01:00→02:45)
[2021-03-04 01:31] LABS: Basophils # (auto) 0 10 ^3/uL (0-0.2); Basophils % (auto) 0.3 % (0.0-2.0); Eosinophils # (auto) 0 10 ^3/uL (0-0.8); Hematocrit 55.4 % (41.0-53.0); Hemoglobin 18.2 g/dL (13.5-17.5); Lymphocytes # (auto) 0.9 10 ^3/uL (0.4-5.4); Lymphocytes % (auto) 4.9 % (10.0-50.0); Mean Corpuscular Hgb Conc. 32.9 g/dL (32.0-36.0); Mean Corpuscular Volume 97.4 fL (80.0-100.0); Monocytes # (auto) 1.4 10 ^3/uL (0-1.3); Neutrophils # (auto) 15.2 10 ^3/uL (1.6-8.6); Neutrophils % (auto) 86.8 % (37.0-80.0); Nucleated Red Blood Cells % 0.1 %; Platelet Count (auto) 335 10^3/uL (140-450); Red Blood Cells 5.68 10^6/uL (4.5-5.90); Red Cell Distribution Width 12.7 % (11.8-14.3); White Blood Cell 17.5 10^3/uL (4.4-10.8)
[2021-03-04] MEDS ORDERED: InsuLIN REG 1unit/0.01ml Soln (100units/ml) IV ONE (01:45)
[2021-03-04 01:49] LABS: Albumin 4.7 g/dL (3.4-5.0); Calcium 8.8 mg/dL (8.5-10.1)
[2021-03-04 01:52] LABS: Bilirubin, Total 0.6 mg/dL (0.2-1.0); Phosphorus 8.5 mg/dL (2.5-4.90); Total Protein 8.6 g/dL (6.4-8.2)
[2021-03-04 01:55] LABS: Potassium 5.6 mmol/L (3.5-5.1)
[2021-03-04 01:56] LABS: BUN/Creatinine Ratio 13.7
[2021-03-04] MEDS ORDERED: INSULIN LANTUS (GLARGINE) 1 /0.01ml (100units/ml) SC ONE (02:15)
[2021-03-04] MEDS ORDERED: InsuLIN R (HUMAN) 100 UNITS in SODIUM CHL 0.9% 99 ML IV SCH (02:15)
[2021-03-04] MEDS ORDERED: DEXTROSE (50%) 50ML SYRG IV PRN ×3 (02:15→12:30)
[2021-03-04 02:17] LABS: Lactic Acid w/Reflex 4.1 mmol/L (0.4-2.0)
[2021-03-04 02:44] LABS: Urine Bacteria FEW /hpf (None Seen); Urine Blood Negative /uL (Negative); Urine Mucus FEW (None Seen); Urine Specific Gravity 1.022 (1.001-1.035); Urine WBC 9 /hpf (0 - 3)
[2021-03-04] MEDS ORDERED: InsuLIN REG 1unit/0.01ml Soln (100units/ml) ONE (02:52)
[2021-03-04] MEDS ORDERED: ONDANSETRON HCL 4 MG/2 ML VIAL IV ONE (03:00)
[2021-03-04] MEDS: ACCU-CHEK COMFORT CURVE STRIP VI SCH ×7 (03:29→12:13)
[2021-03-04] MEDS ORDERED: NITROGLYCERIN 0.4 MG SL TAB SL PRN (05:15)
[2021-03-04] MEDS ORDERED: SODIUM ZIRCONIUM CYCL 10 GM PAK PO ONE (05:15)
[2021-03-04] MEDS ORDERED: MORPHINE SULF INJ 2 MG/ML SYRINGE 1ML IV PRN (05:15)
[2021-03-04] MEDS ORDERED: SODIUM CHLORIDE 0.9% 500 ML IV ONE (05:15)
[2021-03-04 08:05] LABS: BUN/Creatinine Ratio 18.2; Calcium 7.8 mg/dL (8.5-10.1); Potassium 3.5 mmol/L (3.5-5.1)
[2021-03-04] MEDS ORDERED: D5W/SOD CHL 0.45% 1,000 ML IV SCH (08:15)
[2021-03-04] MEDS ORDERED: SODIUM CHLORIDE 0.9% 1,000 ML IV SCH ×2 (11:15→12:30)
[2021-03-04 12:30] LABS: Potassium 3.8 mmol/L (3.5-5.1)
[2021-03-04 12:34] LABS: BUN/Creatinine Ratio 20.3; Calcium 7.7 mg/dL (8.5-10.1)
[2021-03-04] MEDS ORDERED: D5W/SOD CHLO 0.9% 1,000 ML IV SCH (16:45)
[2021-03-04 17:01] VITALS: BP 109/64
[2021-03-04] MEDS ORDERED: InsuLIN REG 1unit/0.01ml Soln (100units/ml) SC SCH (18:00)
[2021-03-04] MEDS ORDERED: ACCU-CHEK COMFORT CURVE STRIP VI SCH (18:00)
[2021-03-04 18:09] LABS: Amphetamine Screen, Urine POSITIVE (NEGATIVE); Barbiturate Scree,Urine NEGATIVE (NEGATIVE); Benzodiazephine Screen, Urine NEGATIVE (NEGATIVE); Cannabinoid Screen, Urine NEGATIVE (NEGATIVE); Cocaine Screen, Urine NEGATIVE (NEGATIVE); Opiate Scree,Urine NEGATIVE (NEGATIVE)
[2021-03-04 18:15] LABS: Phencyclidine Screen, Urine NEGATIVE (NEGATIVE)
[2021-03-05] MEDS ORDERED: INSULIN LANTUS (GLARGINE) 1 /0.01ml (100units/ml) SC SCH ×2 (10:00)
== END 2021-03-04 21:00 | disposition left against medical advice (07) | DRG 420 ==
LOC: EDBD 23:49 → ER 23:52 → OVERFLOW 03-04 05:11 → CENTRAL 03-04 15:38
PROVIDERS: ADMIT Nurse Practitioner; ATTEND Internal Medicine
DX: E10.10 Type 1 diabetes mellitus with ketoacidosis without coma (principal); N17.0 Acute kidney failure with tubular necrosis; Z20.822 Contact with and (suspected) exposure to COVID-19; D72.829 Elevated white blood cell count, unspecified; F12.90 Cannabis use, unspecified, uncomplicated; E87.5 Hyperkalemia; Z79.4 Long term (current) use of insulin; Z88.0 Allergy status to penicillin; Z83.3 Family history of diabetes mellitus; Z53.29 Procedure and treatment not carried out because of patient's decision for other reasons; Z91.19 Patient's noncompliance with other medical treatment and regimen
CPT/HCPCS: 36415; 36600; 80048; 80053; 80307; 81001; 82010; 82805; 82962; 83036; 83605; 83690; 83735; 84100; 85025; 87040; 87426; 96361; 96365; 96375; G0378; J1815; J2405

== ENCOUNTER 2021-03-31 17:45 | Inpatient (IN) | payer MEDICAID ==
[~2021-03-31] VITALS: Ht 175.3 cm; Wt 61.4 kg
[2021-03-31] MEDS ORDERED: ONDANSETRON HCL 4 MG/2 ML VIAL ONE (18:09)
[2021-03-31] MEDS ORDERED: InsuLIN REG 1unit/0.01ml Soln (100units/ml) ONE (18:12)
[2021-03-31] MEDS ORDERED: ONDANSETRON HCL 4 MG/2 ML VIAL IV ONE (18:15)
[2021-03-31] MEDS ORDERED: InsuLIN R (HUMAN) 100 UNITS in SODIUM CHL 0.9% 99 ML IV SCH (18:15)
[2021-03-31] MEDS ORDERED: SODIUM CHLORIDE 0.9% 1,000 ML IV SCH ×2 (18:15→22:15)
[2021-03-31] MEDS ORDERED: InsuLIN REG 1unit/0.01ml Soln (100units/ml) IV ONE (18:15)
[2021-03-31] MEDS ORDERED: DEXTROSE (50%) 50ML SYRG IV PRN ×2 (18:15→20:00)
[2021-03-31 18:22] LABS: Basophils # (auto) 0.1 10 ^3/uL (0-0.2); Basophils % (auto) 0.6 % (0.0-2.0); Eosinophils # (auto) 0 10 ^3/uL (0-0.8); Eosinophils % (auto) 0.1 % (0.0-7.0); Hematocrit 51.8 % (41.0-53.0); Hemoglobin 17.1 g/dL (13.5-17.5); Lymphocytes # (auto) 0.7 10 ^3/uL (0.4-5.4); Lymphocytes % (auto) 4.6 % (10.0-50.0); Mean Corpuscular Hemoglobin 32.5 pg (28.0-32.0); Mean Corpuscular Hgb Conc. 33.1 g/dL (32.0-36.0); Mean Corpuscular Volume 98.3 fL (80.0-100.0); Monocytes # (auto) 1.1 10 ^3/uL (0-1.3); Neutrophils # (auto) 13.8 10 ^3/uL (1.6-8.6); Neutrophils % (auto) 87.7 % (37.0-80.0); Red Blood Cells 5.27 10^6/uL (4.5-5.90); Red Cell Distribution Width 13.6 % (11.8-14.3); White Blood Cell 15.7 10^3/uL (4.4-10.8)
[2021-03-31 18:36] LABS: Albumin 4.3 g/dL (3.4-5.0); Calcium 8.4 mg/dL (8.5-10.1); Magnesium 2.6 mg/dL (1.6-2.6); Potassium 4.7 mmol/L (3.5-5.1)
[2021-03-31 18:45] LABS: BUN/Creatinine Ratio 19.4; Bilirubin, Total 0.8 mg/dL (0.2-1.0); Phosphorus 6.4 mg/dL (2.5-4.90); Total Protein 8.2 g/dL (6.4-8.2)
[2021-03-31] MEDS ORDERED: ACCU-CHEK COMFORT CURVE STRIP VI SCH (19:30)
[2021-03-31] MEDS ORDERED: INSULIN LANTUS (GLARGINE) 1 /0.01ml (100units/ml) SC ONE (20:00)
[2021-03-31] MEDS: SODIUM CHLORIDE 0.9% 1,000 ML IV SCH (20:00)
[2021-03-31] MEDS: InsuLIN R (HUMAN) 100 UNITS in SODIUM CHL 0.9% 99 ML IV SCH ×2 (20:00→22:30)
[2021-03-31] MEDS: ACCU-CHEK COMFORT CURVE STRIP VI SCH ×2 (21:00→22:30)
[2021-03-31] MEDS ORDERED: ONDANSETRON HCL 4 MG/2 ML VIAL IV PRN (22:00)
[2021-03-31] MEDS ORDERED: NITROGLYCERIN 0.4 MG SL TAB SL PRN (22:00)
[2021-03-31] MEDS ORDERED: LACTATED RINGER'S 1,000 ML IV SCH (22:00)
[2021-03-31] MEDS ORDERED: MORPHINE SULFATE INJECTION 2 MG/ML SYRG IV PRN ×2 (22:00)
[2021-04-01] VITALS (14 sets, daily range): BP systolic 100–129; BP diastolic 44–67
[2021-04-01] MEDS: SODIUM CHLORIDE 0.9% 1,000 ML IV SCH (00:01)
[2021-04-01] MEDS ORDERED: SODIUM CHLORIDE 0.9% 1,000 ML IV SCH ×3 (00:15→02:00)
[2021-04-01] MEDS: InsuLIN R (HUMAN) 100 UNITS in SODIUM CHL 0.9% 99 ML IV SCH ×3 (01:42→06:11)
[2021-04-01] MEDS: ACCU-CHEK COMFORT CURVE STRIP VI SCH ×10 (01:43→13:37)
[2021-04-01 02:20] LABS: BUN/Creatinine Ratio 18.2; Calcium 6.7 mg/dL (8.5-10.1); Potassium 4.1 mmol/L (3.5-5.1)
[2021-04-01] MEDS: D5W/SOD CHL 0.45% 1,000 ML IV SCH ×2 (04:11→11:15)
[2021-04-01 06:40] LABS: BUN/Creatinine Ratio 18.1; Calcium 6.7 mg/dL (8.5-10.1)
[2021-04-01 07:27] LABS: Urine Bacteria NONE SEEN /hpf (None Seen); Urine Blood Negative /uL (Negative); Urine Specific Gravity 1.019 (1.001-1.035); Urine WBC 9 /hpf (0 - 3)
[2021-04-01] MEDS ORDERED: PANTOPRAZOLE 40 MG/10 ML VIAL INJ IV SCH (10:00)
[2021-04-01] MEDS ORDERED: INSULIN LANTUS (GLARGINE) 1 /0.01ml (100units/ml) SC SCH (10:00)
[2021-04-01 12:49] LABS: BUN/Creatinine Ratio 13.2; Potassium 3.5 mmol/L (3.5-5.1)
[2021-04-01 19:30] LABS: Alcohol, Urine < 3.0 mg/dL (0-10); Amphetamine Screen, Urine POSITIVE (NEGATIVE); Barbiturate Scree,Urine NEGATIVE (NEGATIVE); Benzodiazephine Screen, Urine NEGATIVE (NEGATIVE); Cannabinoid Screen, Urine NEGATIVE (NEGATIVE); Cocaine Screen, Urine NEGATIVE (NEGATIVE); Opiate Scree,Urine NEGATIVE (NEGATIVE); Phencyclidine Screen, Urine NEGATIVE (NEGATIVE)
== END 2021-04-01 14:00 | disposition left against medical advice (07) | DRG 420 ==
LOC: ER 17:45 → TELE 21:51 → ICU WEST 23:32
PROVIDERS: ADMIT Nurse Practitioner Acute Care; ATTEND Internal Medicine
DX: E11.10 Type 2 diabetes mellitus with ketoacidosis without coma (principal); R65.10 Systemic inflammatory response syndrome (SIRS) of non-infectious origin without acute organ dysfunction; E86.0 Dehydration; Z88.0 Allergy status to penicillin; Z20.822 Contact with and (suspected) exposure to COVID-19; Z79.4 Long term (current) use of insulin; Z91.14 Patient's other noncompliance with medication regimen; Z83.3 Family history of diabetes mellitus; Z53.29 Procedure and treatment not carried out because of patient's decision for other reasons
CPT/HCPCS: 36415; 36600; 80048; 80053; 80307; 81001; 82010; 82805; 82962; 83605; 83735; 83930; 84100; 85025; 87081; 87426; 96361; 96372; 96374; 96375; 99291; C9113; G0378; J1815; J2405

== ENCOUNTER 2021-04-26 11:23 | Inpatient (IN) | payer MEDICAID ==
[~2021-04-26] VITALS: Ht 175.3 cm; Wt 63.5 kg
[2021-04-26] MEDS ORDERED: PANTOPRAZOLE 40 MG/10 ML VIAL INJ IV ONE (11:30)
[2021-04-26] MEDS ORDERED: SODIUM CHLORIDE 0.9% 1,000 ML IV ONE (11:30)
[2021-04-26] MEDS ORDERED: PROCHLORPERAZINE EDISYLATE 5 MG/ML 2ML VIAL IV ONE (11:30)
[2021-04-26 12:27] LABS: Hematocrit 50.5 % (41.0-53.0); Hemoglobin 17.2 g/dL (13.5-17.5); Mean Corpuscular Hemoglobin 32.6 pg (28.0-32.0); Mean Corpuscular Hgb Conc. 34.1 g/dL (32.0-36.0); Mean Corpuscular Volume 95.6 fL (80.0-100.0); Platelet Count (auto) 270 10^3/uL (140-450); Red Blood Cells 5.28 10^6/uL (4.5-5.90); Red Cell Distribution Width 13.1 % (11.8-14.3); White Blood Cell 13.1 10^3/uL (4.4-10.8)
[2021-04-26 12:30] LABS: Basophils % (manual) 0 (0.0-2.0); Blast Cells 0; Eosinophils % (manual) 0 (0-7); Myelocytes % 0; Promyelocytes % 0; Reactive Lymphocytes 0
[2021-04-26 12:37] LABS: Calcium 9.4 mg/dL (8.5-10.1); Potassium 4.3 mmol/L (3.5-5.1)
[2021-04-26 12:41] LABS: Albumin 4.7 g/dL (3.4-5.0); Magnesium 2.5 mg/dL (1.6-2.6)
[2021-04-26 12:55] LABS: Bilirubin, Total 0.5 mg/dL (0.2-1.0); Total Protein 8.3 g/dL (6.4-8.2)
[2021-04-26 12:56] LABS: Band Neutrophils % (manual) 1; Lymphocytes % (manual) 9 (10.0-50.0); Metamyelocytes % 1; Monocytes % (manual) 7 (0-12)
[2021-04-26 12:58] LABS: BUN/Creatinine Ratio 19.8
[2021-04-26 13:30] LABS: Urine Bacteria NONE SEEN /hpf (None Seen); Urine Blood Negative /uL (Negative); Urine Specific Gravity 1.025 (1.001-1.035); Urine WBC <1 /hpf (0 - 3)
[2021-04-26 13:43] LABS: Amphetamine Screen, Urine POSITIVE (NEGATIVE); Barbiturate Scree,Urine NEGATIVE (NEGATIVE); Benzodiazephine Screen, Urine NEGATIVE (NEGATIVE); Cannabinoid Screen, Urine NEGATIVE (NEGATIVE); Cocaine Screen, Urine NEGATIVE (NEGATIVE); Opiate Scree,Urine NEGATIVE (NEGATIVE); Phencyclidine Screen, Urine NEGATIVE (NEGATIVE)
[2021-04-26] MEDS: InsuLIN R (HUMAN) 100 UNITS in SODIUM CHL 0.9% 99 ML IV SCH ×4 (14:15→17:00)
[2021-04-26] MEDS ORDERED: DEXTROSE (50%) 50ML SYRG IV PRN (14:15)
[2021-04-26] MEDS ORDERED: INSULIN LANTUS (GLARGINE) 1 /0.01ml (100units/ml) SC ONE (14:15)
[2021-04-26] MEDS ORDERED: SODIUM CHLORIDE 0.9% 1,000 ML IV SCH (14:30)
[2021-04-26] MEDS ORDERED: MORPHINE SULF INJ 2 MG/ML SYRINGE 1ML IV PRN ×3 (14:30→17:00)
[2021-04-26] MEDS ORDERED: LACTATED RINGER'S 2,000 ML IV ONE (14:30)
[2021-04-26] MEDS ORDERED: AZTREONAM 1GM INJ 1 GM in D5W 5% 50 ML IV ONE (14:30)
[2021-04-26] MEDS ORDERED: NITROGLYCERIN 0.4 MG SL TAB SL PRN ×2 (14:30→17:00)
[2021-04-26] MEDS ORDERED: D5W/ SOD CHL 0.9%/KCL 20MEQ 1,000 ML IV SCH (14:30)
[2021-04-26] MEDS ORDERED: SOD CHL 0.9%/ KCL 20MEQ 1,000 ML IV SCH (14:30)
[2021-04-26] MEDS: ACCU-CHEK COMFORT CURVE STRIP VI SCH ×2 (15:54→16:59)
[2021-04-26] MEDS ORDERED: INSLANTI SC (16:51)
[2021-04-26] MEDS ORDERED: INSU100I43 SC (16:51)
[2021-04-26 17:00] VITALS: BP 125/55
[2021-04-26] MEDS ORDERED: LORazepam 0.5 MG TAB PO PRN (17:00)
[2021-04-26] MEDS ORDERED: ONDANSETRON HCL 4 MG/2 ML VIAL IV PRN (17:00)
[2021-04-26] MEDS ORDERED: HYDROcodone-ACET 5/325MG TAB PO PRN (17:00)
[2021-04-26] MEDS ORDERED: DOCUSATE SOD 100 MG CAP PO PRN (17:00)
[2021-04-26] MEDS ORDERED: ALUM & MAG HYDROX-SIMETH LIQ(MAALOX) 30 ML PO PRN (17:00)
[2021-04-26] MEDS ORDERED: ACETAMINOPHEN 325 MG TAB PO PRN (17:00)
[2021-04-26] MEDS ORDERED: CLINDAMYCIN 600MG IV 50 ML IV SCH (21:00)
[2021-04-27] MEDS ORDERED: AZTREONAM 1GM INJ 1 GM in D5W 5% 50 ML IV SCH (06:00)
[2021-04-27] MEDS ORDERED: ENOXAPARIN SOD 40 MG/0.4 ML SYRINGE SC SCH (10:00)
== END 2021-04-26 17:46 | disposition left against medical advice (07) | DRG 420 ==
LOC: ER 11:27 → TELE 14:25
PROVIDERS: ADMIT Hospitalist; ATTEND Hospitalist
DX: E10.10 Type 1 diabetes mellitus with ketoacidosis without coma (principal); G92 Toxic encephalopathy; E86.0 Dehydration; F10.129 Alcohol abuse with intoxication, unspecified; Z83.3 Family history of diabetes mellitus; Z91.19 Patient's noncompliance with other medical treatment and regimen; Y90.0 Blood alcohol level of less than 20 mg/100 ml; Z53.29 Procedure and treatment not carried out because of patient's decision for other reasons; Z20.822 Contact with and (suspected) exposure to COVID-19; Z79.4 Long term (current) use of insulin
CPT/HCPCS: 36415; 36600; 71045; 80053; 80307; 80320; 81001; 82010; 82805; 82962; 83036; 83735; 85007; 85027; 87040; 87077; 87186; 87426; 93005; 96361; 96374; 96375; 99291; C9113; G0378; J1815; J7060

== ENCOUNTER 2021-05-11 14:06 | Inpatient (IN) | payer MEDICAID ==
[~2021-05-11] VITALS: Ht 177.8 cm; Wt 65.3 kg
[~2021-05-11 14:06] MED LIST changes: +INSLANTI SC; -INSU100I4 SC; +INSU100I43 SC; -INSU1INJ19 SC
[2021-05-11] MEDS ORDERED: SODIUM CHLORIDE 0.9% 1,000 ML IVB ONE (15:15)
[2021-05-11] MEDS ORDERED: ONDANSETRON HCL 4 MG/2 ML VIAL IV ONE (15:15)
[2021-05-11] MEDS ORDERED: SODIUM CHLORIDE 0.9% 1,000 ML IV ONE ×2 (15:15)
[2021-05-11 15:25] LABS: Basophils # (auto) 0.1 10 ^3/uL (0-0.2); Basophils % (auto) 0.4 % (0.0-2.0); Eosinophils # (auto) 0 10 ^3/uL (0-0.8); Hemoglobin 17.5 g/dL (13.5-17.5); Lymphocytes # (auto) 0.8 10 ^3/uL (0.4-5.4); Lymphocytes % (auto) 4.4 % (10.0-50.0); Mean Corpuscular Hemoglobin 33.4 pg (28.0-32.0); Mean Corpuscular Volume 100.9 fL (80.0-100.0); Monocytes # (auto) 1.6 10 ^3/uL (0-1.3); Monocytes % (auto) 8.7 % (0.0-12.0); Neutrophils # (auto) 15.9 10 ^3/uL (1.6-8.6); Neutrophils % (auto) 86.5 % (37.0-80.0); Platelet Count (auto) 403 10^3/uL (140-450); Red Blood Cells 5.25 10^6/uL (4.5-5.90); Red Cell Distribution Width 13.6 % (11.8-14.3); White Blood Cell 18.4 10^3/uL (4.4-10.8)
[2021-05-11 15:48] LABS: Albumin 4.5 g/dL (3.4-5.0); Anion Gap 39 (5-15); Blood Urea Nitrogen 35 mg/dL (7-18); Calcium 8.2 mg/dL (8.5-10.1); Chloride 81 mmol/L (98-107); Lipase 79 U/L (73-393); Sodium 126 mmol/L (136-145)
[2021-05-11 15:56] LABS: Alanine Aminotransferase 43 U/L (16-61); Alkaline Phosphatase 257 U/L (45-117); Aspartate Aminotransferase 21 U/L (15-37); Bilirubin, Total 0.8 mg/dL (0.2-1.0); GFR African American 58 mL/min; GFR Non-African American 48 mL/min; Total Protein 8.5 g/dL (6.4-8.2)
[2021-05-11 16:03] LABS: Carbon Dioxide 6 mmol/L (21-32); Potassium 5.8 mmol/L (3.5-5.1)
[2021-05-11 16:04] LABS: BUN/Creatinine Ratio 19.2; Glucose 681 mg/dL (74-106)
[2021-05-11] MEDS ORDERED: SODIUM CHLORIDE 0.9% 1,000 ML IV SCH ×4 (16:15→22:15)
[2021-05-11] MEDS ORDERED: DEXTROSE (50%) 50ML SYRG IV PRN ×2 (16:15→18:30)
[2021-05-11] MEDS ORDERED: SODIUM BICARBONATE 8.4 % INJ 50ML VIAL IV ONE ×2 (16:15)
[2021-05-11] MEDS ORDERED: InsuLIN R (HUMAN) 100 UNITS in SODIUM CHL 0.9% 99 ML IV SCH (16:15)
[2021-05-11] MEDS ORDERED: ACCU-CHEK COMFORT CURVE STRIP VI SCH (16:30)
[2021-05-11 17:52] LABS: Urine Bacteria NONE SEEN /hpf (None Seen); Urine Blood 1+ /uL (Negative); Urine Hyaline Cast FEW /lpf (0 - 2); Urine Specific Gravity 1.019 (1.001-1.035); Urine WBC 1 /hpf (0 - 3)
[2021-05-11 17:58] LABS: Alcohol, Urine < 3.0 mg/dL (0-10); Amphetamine Screen, Urine POSITIVE (NEGATIVE); Barbiturate Scree,Urine NEGATIVE (NEGATIVE); Benzodiazephine Screen, Urine NEGATIVE (NEGATIVE); Cannabinoid Screen, Urine NEGATIVE (NEGATIVE); Cocaine Screen, Urine NEGATIVE (NEGATIVE); Opiate Scree,Urine NEGATIVE (NEGATIVE); Phencyclidine Screen, Urine NEGATIVE (NEGATIVE)
[2021-05-11] MEDS ORDERED: MORPHINE SULF INJ 2 MG/ML SYRINGE 1ML IV PRN ×2 (18:15→18:30)
[2021-05-11] MEDS ORDERED: NITROGLYCERIN 0.4 MG SL TAB SL PRN (18:15)
[2021-05-11] MEDS ORDERED: INSULIN LANTUS (GLARGINE) 1 /0.01ml (100units/ml) SC ONE (18:15)
[2021-05-11] MEDS ORDERED: ACETAMINOPHEN 500 MG TAB PO PRN (18:30)
[2021-05-11] MEDS ORDERED: traMADol HCL 50 MG TAB PO PRN (18:30)
[2021-05-11] MEDS ORDERED: levoFLOXacin 500MG 100 ML IV ONE (18:30)
[2021-05-11] MEDS: SODIUM CHLORIDE 0.9% 1,000 ML IV SCH ×2 (19:20→20:15)
[2021-05-11] MEDS: ACCU-CHEK COMFORT CURVE STRIP VI SCH ×2 (19:30→21:00)
[2021-05-11 20:06] LABS: Calcium 6.6 mg/dL (8.5-10.1); Potassium 3.8 mmol/L (3.5-5.1)
[2021-05-11 22:54] LABS: BUN/Creatinine Ratio 21.1; Calcium 6.9 mg/dL (8.5-10.1); Potassium 4.3 mmol/L (3.5-5.1)
[2021-05-12] MEDS: SODIUM CHLORIDE 0.9% 1,000 ML IV SCH ×2 (00:15→17:46)
[2021-05-12 01:08] LABS: BUN/Creatinine Ratio 21.4; Calcium 7.1 mg/dL (8.5-10.1); Potassium 4.1 mmol/L (3.5-5.1)
[2021-05-12] MEDS: FAMOTIDINE (10MG/ML) 2ML VL IV SCH ×2 (02:25→10:33)
[2021-05-12 06:20] LABS: Basophils # (auto) 0 10 ^3/uL (0-0.2); Basophils % (auto) 0.1 % (0.0-2.0); Eosinophils # (auto) 0 10 ^3/uL (0-0.8); Eosinophils % (auto) 0.3 % (0.0-7.0); Hematocrit 41.6 % (41.0-53.0); Hemoglobin 14.9 g/dL (13.5-17.5); Lymphocytes # (auto) 0.7 10 ^3/uL (0.4-5.4); Lymphocytes % (auto) 8.2 % (10.0-50.0); Mean Corpuscular Hemoglobin 33.5 pg (28.0-32.0); Mean Corpuscular Hgb Conc. 35.7 g/dL (32.0-36.0); Mean Corpuscular Volume 93.8 fL (80.0-100.0); Monocytes # (auto) 1.4 10 ^3/uL (0-1.3); Neutrophils # (auto) 6.6 10 ^3/uL (1.6-8.6); Neutrophils % (auto) 75.4 % (37.0-80.0); Platelet Count (auto) 281 10^3/uL (140-450); Red Blood Cells 4.43 10^6/uL (4.5-5.90); Red Cell Distribution Width 13.1 % (11.8-14.3); White Blood Cell 8.8 10^3/uL (4.4-10.8)
[2021-05-12 06:35] LABS: Potassium 3.8 mmol/L (3.5-5.1)
[2021-05-12 06:52] LABS: Albumin 3.2 g/dL (3.4-5.0); BUN/Creatinine Ratio 22.1; Bilirubin, Total 0.5 mg/dL (0.2-1.0); Total Protein 6.3 g/dL (6.4-8.2)
[2021-05-12] MEDS ORDERED: DEXTROSE (50%) 50ML SYRG IV PRN (09:30)
[2021-05-12] MEDS ORDERED: INSULIN LANTUS (GLARGINE) 1 /0.01ml (100units/ml) SC SCH (10:00)
[2021-05-12] MEDS ORDERED: levoFLOXacin 500MG 100 ML IV SCH (10:00)
[2021-05-12] MEDS: ACCU-CHEK COMFORT CURVE STRIP VI SCH ×2 (12:00→16:00)
[2021-05-12] MEDS: InsuLIN REG 1unit/0.01ml Soln (100units/ml) SC SCH ×2 (12:00→16:00)
[2021-05-12 12:12] LABS: BUN/Creatinine Ratio 20.2; Calcium 7.4 mg/dL (8.5-10.1); Potassium 4.5 mmol/L (3.5-5.1)
[2021-05-12 17:17] VITALS: BP 124/58
== END 2021-05-12 18:05 | disposition left against medical advice (07) | DRG 420 ==
LOC: ER 14:06 → TELE 18:07 → TELE-WESTW 05-12 16:57
PROVIDERS: ADMIT Internal Medicine; ATTEND Internal Medicine
DX: E10.10 Type 1 diabetes mellitus with ketoacidosis without coma (principal); R65.11 Systemic inflammatory response syndrome (SIRS) of non-infectious origin with acute organ dysfunction; N17.9 Acute kidney failure, unspecified; E87.5 Hyperkalemia; E87.1 Hypo-osmolality and hyponatremia; Z20.822 Contact with and (suspected) exposure to COVID-19; F12.90 Cannabis use, unspecified, uncomplicated; F15.90 Other stimulant use, unspecified, uncomplicated; D72.829 Elevated white blood cell count, unspecified; Z88.0 Allergy status to penicillin; Z88.8 Allergy status to other drugs, medicaments and biological substances; Z83.3 Family history of diabetes mellitus; Z79.4 Long term (current) use of insulin; Z91.19 Patient's noncompliance with other medical treatment and regimen
CPT/HCPCS: 36415; 36600; 71045; 76775; 80048; 80053; 80307; 81001; 82805; 82962; 83690; 83735; 84484; 85025; 87081; 87086; 87426; 93005; 96361; 96374; 99291; G0378; J1815; J1956; J2405; J3490

== ENCOUNTER 2021-07-07 15:48 | Inpatient (IN) | payer MEDICAID ==
[~2021-07-07] VITALS: Ht 172.7 cm; Wt 67.8 kg
[2021-07-07 17:04] LABS: Basophils # (auto) 0.1 10 ^3/uL (0-0.2); Basophils % (auto) 0.7 % (0.0-2.0); Eosinophils # (auto) 0 10 ^3/uL (0-0.8); Eosinophils % (auto) 0.4 % (0.0-7.0); Lymphocytes # (auto) 1.6 10 ^3/uL (0.4-5.4); Lymphocytes % (auto) 14.1 % (10.0-50.0); Mean Corpuscular Hemoglobin 32.2 pg (28.0-32.0); Mean Corpuscular Volume 94.8 fL (80.0-100.0); Monocytes # (auto) 0.9 10 ^3/uL (0-1.3); Monocytes % (auto) 8.3 % (0.0-12.0); Neutrophils # (auto) 8.6 10 ^3/uL (1.6-8.6); Neutrophils % (auto) 76.5 % (37.0-80.0); Nucleated Red Blood Cells % 0.1 %; Red Blood Cells 4.96 10^6/uL (4.5-5.90); White Blood Cell 11.3 10^3/uL (4.4-10.8)
[2021-07-07 17:19] LABS: Albumin 3.6 g/dL (3.4-5.0); Calcium 8.8 mg/dL (8.5-10.1); Potassium 4.7 mmol/L (3.5-5.1)
[2021-07-07 17:27] LABS: Bilirubin, Total 0.8 mg/dL (0.2-1.0); Total Protein 7.7 g/dL (6.4-8.2)
[2021-07-07] MEDS ORDERED: InsuLIN R (HUMAN) 100 UNITS in SODIUM CHL 0.9% 99 ML IV SCH (18:45)
[2021-07-07] MEDS ORDERED: DEXTROSE (50%) 50ML SYRG IV PRN ×2 (18:45→22:15)
[2021-07-07 18:47] LABS: Urine Bacteria NONE SEEN /hpf (None Seen); Urine Blood Negative /uL (Negative); Urine Specific Gravity 1.026 (1.001-1.035); Urine WBC 1 /hpf (0 - 3)
[2021-07-07 18:55] LABS: Amphetamine Screen, Urine NEGATIVE (NEGATIVE); Barbiturate Scree,Urine NEGATIVE (NEGATIVE); Benzodiazephine Screen, Urine NEGATIVE (NEGATIVE); Cannabinoid Screen, Urine NEGATIVE (NEGATIVE); Cocaine Screen, Urine NEGATIVE (NEGATIVE); Opiate Scree,Urine NEGATIVE (NEGATIVE); Phencyclidine Screen, Urine NEGATIVE (NEGATIVE)
[2021-07-07] MEDS ORDERED: SODIUM BICARBONATE 8.4 % INJ 50ML VIAL IV ONE (20:00)
[2021-07-07 20:32] LABS: BUN/Creatinine Ratio 19.5; Calcium 7.9 mg/dL (8.5-10.1); Potassium 4.6 mmol/L (3.5-5.1)
[2021-07-07] MEDS: SODIUM CHLORIDE 0.9% 1,000 ML IV SCH ×2 (21:00→22:30)
[2021-07-07] MEDS: ACCU-CHEK COMFORT CURVE STRIP VI SCH ×3 (21:00→22:32)
[2021-07-07] MEDS ORDERED: ACETAMINOPHEN 325 MG TAB PO PRN (22:15)
[2021-07-07] MEDS ORDERED: HYDROcodone-ACET 5/325MG TAB PO PRN (22:15)
[2021-07-07] MEDS ORDERED: MORPHINE SULF INJ 2 MG/ML SYRINGE 1ML IV PRN (22:15)
[2021-07-07] MEDS ORDERED: SODIUM CHLORIDE 0.9% 1,000 ML IV SCH ×2 (22:15→22:45)
[2021-07-07] MEDS ORDERED: NITROGLYCERIN 0.4 MG SL TAB SL PRN (22:15)
[2021-07-08 00:17] LABS: Calcium 7.7 mg/dL (8.5-10.1); Potassium 4.6 mmol/L (3.5-5.1)
[2021-07-08 00:18] LABS: BUN/Creatinine Ratio 18.4
[2021-07-08] MEDS: InsuLIN REG 1unit/0.01ml Soln (100units/ml) SC SCH ×5 (00:20→16:22)
[2021-07-08] MEDS ORDERED: SODIUM CHLORIDE 0.9% 1,000 ML IV ONE (01:00)
[2021-07-08] MEDS: ACCU-CHEK COMFORT CURVE STRIP VI SCH ×9 (01:30→16:04)
[2021-07-08 03:36] LABS: BUN/Creatinine Ratio 19.5; Potassium 4.1 mmol/L (3.5-5.1)
[2021-07-08] MEDS: ONDANSETRON HCL 4 MG/2 ML VIAL IV PRN ×3 (04:30→14:11)
[2021-07-08] MEDS: SODIUM CHLORIDE 0.9% 1,000 ML IV SCH ×3 (05:00→14:11)
[2021-07-08] MEDS ORDERED: MORPHINE SULF INJ 2 MG/ML SYRINGE 1ML IV ONE (06:30)
[2021-07-08 06:39] LABS: Basophils # (auto) 0.1 10 ^3/uL (0-0.2); Basophils % (auto) 0.3 % (0.0-2.0); Eosinophils # (auto) 0 10 ^3/uL (0-0.8); Eosinophils % (auto) 0.2 % (0.0-7.0); Lymphocytes # (auto) 1.4 10 ^3/uL (0.4-5.4); Lymphocytes % (auto) 7.3 % (10.0-50.0); Mean Corpuscular Hgb Conc. 34.1 g/dL (32.0-36.0); Mean Corpuscular Volume 93.7 fL (80.0-100.0); Monocytes # (auto) 1.6 10 ^3/uL (0-1.3); Monocytes % (auto) 8.2 % (0.0-12.0); Neutrophils # (auto) 16.3 10 ^3/uL (1.6-8.6); Red Blood Cells 4.37 10^6/uL (4.5-5.90); Red Cell Distribution Width 13.2 % (11.8-14.3); White Blood Cell 19.3 10^3/uL (4.4-10.8)
[2021-07-08 06:46] LABS: Calcium 7.3 mg/dL (8.5-10.1); Potassium 4.1 mmol/L (3.5-5.1)
[2021-07-08 06:52] LABS: Albumin 2.7 g/dL (3.4-5.0); BUN/Creatinine Ratio 17.6; Bilirubin, Total 0.4 mg/dL (0.2-1.0); Total Protein 6.1 g/dL (6.4-8.2)
[2021-07-08] MEDS ORDERED: INSULIN LANTUS (GLARGINE) 1 /0.01ml (100units/ml) SC SCH (07:00)
[2021-07-08] MEDS ORDERED: ZINC SULFATE 220mg CAP or TAB PO SCH (10:00)
[2021-07-08] MEDS ORDERED: ASCORBIC ACID 500 MG TAB PO SCH (10:00)
[2021-07-08] MEDS ORDERED: MULTIPLE VITAMIN TAB PO SCH (10:00)
[2021-07-08] MEDS ORDERED: FAMOTIDINE (10MG/ML) 2ML VL IV SCH (10:00)
[2021-07-08] MEDS ORDERED: ENOXAPARIN SOD 40 MG/0.4 ML SYRINGE SC SCH (10:00)
[2021-07-08 11:46] LABS: BUN/Creatinine Ratio 14.3; Potassium 4.6 mmol/L (3.5-5.1)
[2021-07-08 16:23] VITALS: BP 120/69
== END 2021-07-08 16:40 | disposition home or self-care (01) | DRG 420 ==
LOC: ER 15:48 → TELE 22:08
PROVIDERS: ADMIT Nurse Practitioner Family; ATTEND Internal Medicine
DX: E10.10 Type 1 diabetes mellitus with ketoacidosis without coma (principal); E87.1 Hypo-osmolality and hyponatremia; Z20.822 Contact with and (suspected) exposure to COVID-19; Z91.14 Patient's other noncompliance with medication regimen; Z79.4 Long term (current) use of insulin; Z83.3 Family history of diabetes mellitus; Z88.0 Allergy status to penicillin
CPT/HCPCS: 36415; 36600; 74176; 80048; 80053; 80307; 81001; 82805; 82962; 83735; 85025; 87426; 96361; 96372; 96374; 96375; 96376; G0378; J1815; J2405; J3490

== ENCOUNTER 2021-07-27 03:41 | Emergency (ER) | payer MEDICAID ==
[~2021-07-27] VITALS: Ht 165.1 cm; Wt 68.0 kg
[2021-07-27 03:54] VITALS: BP 137/88
[2021-07-27 04:19] LABS: Basophils # (auto) 0 10 ^3/uL (0-0.2); Basophils % (auto) 0.7 % (0.0-2.0); Eosinophils # (auto) 0.1 10 ^3/uL (0-0.8); Eosinophils % (auto) 2.7 % (0.0-7.0); Hematocrit 47.9 % (41.0-53.0); Hemoglobin 16.4 g/dL (13.5-17.5); Lymphocytes # (auto) 1.2 10 ^3/uL (0.4-5.4); Lymphocytes % (auto) 29.4 % (10.0-50.0); Mean Corpuscular Hemoglobin 32.7 pg (28.0-32.0); Mean Corpuscular Hgb Conc. 34.2 g/dL (32.0-36.0); Mean Corpuscular Volume 95.5 fL (80.0-100.0); Monocytes # (auto) 0.5 10 ^3/uL (0-1.3); Monocytes % (auto) 11.3 % (0.0-12.0); Neutrophils # (auto) 2.3 10 ^3/uL (1.6-8.6); Neutrophils % (auto) 55.9 % (37.0-80.0); Nucleated Red Blood Cells % 0.2 %; Red Blood Cells 5.02 10^6/uL (4.5-5.90); White Blood Cell 4.1 10^3/uL (4.4-10.8)
[2021-07-27 04:41] LABS: Albumin 3.9 g/dL (3.4-5.0); BUN/Creatinine Ratio 14.7; Calcium 8.3 mg/dL (8.5-10.1)
[2021-07-27 04:43] LABS: Bilirubin, Total 0.3 mg/dL (0.2-1.0)
[2021-07-27] MEDS ORDERED: SODIUM CHLORIDE 0.9% 2,000 ML IV ONE (05:15)
[2021-07-27] MEDS ORDERED: SODIUM CHLORIDE 0.9% 1,000 ML IVB ONE (08:45)
== END 2021-07-27 16:16 | disposition left against medical advice (07) ==
LOC: EDBD 03:41 → ER 04:00
DX: E11.65 Type 2 diabetes mellitus with hyperglycemia (principal); R11.2 Nausea with vomiting, unspecified; Z59.0 Homelessness; Z79.4 Long term (current) use of insulin; Z88.0 Allergy status to penicillin
CPT/HCPCS: 36415; 74176; 80053; 80320; 83735; 85025

== ENCOUNTER 2021-08-11 23:14 | Emergency (ER) | payer MEDICAID ==
[~2021-08-11] VITALS: Ht 172.7 cm; Wt 72.6 kg
[2021-08-12 07:30] VITALS: BP 122/71
== END 2021-08-12 07:33 | disposition home or self-care (01) ==
LOC: EDBD 23:14 → ER 23:18
DX: E11.65 Type 2 diabetes mellitus with hyperglycemia (principal); Z88.0 Allergy status to penicillin; Z59.0 Homelessness
CPT/HCPCS: 36600; 82805; 82962; 99283; J7030; J7060

== ENCOUNTER 2021-11-25 20:29 | Inpatient (IN) | payer MEDICAID ==
[~2021-11-25] VITALS: Ht 177.8 cm; Wt 68.0 kg
[2021-11-25] MEDS ORDERED: SODIUM CHLORIDE 0.9% 1,000 ML IV ONE (22:45)
[2021-11-25] MEDS ORDERED: ONDANSETRON HCL 4 MG/2 ML VIAL IV ONE (22:45)
[2021-11-25 23:27] LABS: Basophils # (auto) 0.1 10 ^3/uL (0-0.2); Basophils % (auto) 0.3 % (0.0-2.0); Eosinophils # (auto) 0 10 ^3/uL (0-0.8); Hematocrit 49.1 % (41.0-53.0); Lymphocytes # (auto) 0.7 10 ^3/uL (0.4-5.4); Lymphocytes % (auto) 3.1 % (10.0-50.0); Mean Corpuscular Hemoglobin 33.1 pg (28.0-32.0); Mean Corpuscular Hgb Conc. 32.6 g/dL (32.0-36.0); Mean Corpuscular Volume 101.6 fL (80.0-100.0); Monocytes # (auto) 1.8 10 ^3/uL (0-1.3); Monocytes % (auto) 8.6 % (0.0-12.0); Neutrophils # (auto) 18.6 10 ^3/uL (1.6-8.6); Red Blood Cells 4.83 10^6/uL (4.5-5.90); Red Cell Distribution Width 13.3 % (11.8-14.3); White Blood Cell 21.2 10^3/uL (4.4-10.8)
[2021-11-25] MEDS ORDERED: INSULIN LANTUS (GLARGINE) 1 /0.01ml (100units/ml) SC ONE (23:30)
[2021-11-25] MEDS ORDERED: InsuLIN R (HUMAN) 100 UNITS in SODIUM CHL 0.9% 99 ML IV SCH (23:30)
[2021-11-25] MEDS ORDERED: DEXTROSE (50%) 50ML SYRG IV PRN (23:30)
[2021-11-25 23:53] LABS: Albumin 4.5 g/dL (3.4-5.0); BUN/Creatinine Ratio 20.3; Bilirubin, Total 0.5 mg/dL (0.2-1.0); Total Protein 7.8 g/dL (6.4-8.2)
[2021-11-26] MEDS: ACCU-CHEK COMFORT CURVE STRIP VI SCH ×13 (00:06→18:46)
[2021-11-26 00:14] LABS: Magnesium 2.5 mg/dL (1.6-2.6)
[2021-11-26] MEDS ORDERED: InsuLIN REG 1unit/0.01ml Soln (100units/ml) ONE (00:16)
[2021-11-26 00:18] LABS: Phosphorus 6.8 mg/dL (2.5-4.90)
[2021-11-26] MEDS ORDERED: CALCIUM GLUC 1,000mg/50ml-NS 50 ML IV ONE (01:00)
[2021-11-26] MEDS ORDERED: SODIUM BICARBONATE 8.4 % INJ 50ML VIAL IV ONE (01:00)
[2021-11-26] MEDS ORDERED: NITROGLYCERIN 0.4 MG SL TAB SL PRN (01:00)
[2021-11-26] MEDS ORDERED: ALBUTEROL SULF 2.5 MG/0.5ML(0.5%) NEB SOLN NEB ONE (01:00)
[2021-11-26] MEDS ORDERED: SODIUM ZIRCONIUM CYCL 10 GM PAK PO ONE (01:00)
[2021-11-26] MEDS ORDERED: ONDANSETRON HCL 4 MG/2 ML VIAL IV PRN (01:00)
[2021-11-26] MEDS ORDERED: MORPHINE SULFATE INJECTION 2 MG/ML SYRG IV PRN (01:00)
[2021-11-26] MEDS ORDERED: ALBUTEROL SULF 2.5 MG/0.5ML(0.5%) NEB SOLN ONE (01:15)
[2021-11-26] MEDS: SODIUM CHLORIDE 0.9% 1,000 ML IV SCH ×6 (01:30→12:47)
[2021-11-26 02:06] LABS: Amphetamine Screen, Urine POSITIVE (NEGATIVE); Barbiturate Scree,Urine NEGATIVE (NEGATIVE); Benzodiazephine Screen, Urine NEGATIVE (NEGATIVE); Cannabinoid Screen, Urine NEGATIVE (NEGATIVE); Cocaine Screen, Urine NEGATIVE (NEGATIVE); Opiate Scree,Urine NEGATIVE (NEGATIVE); Phencyclidine Screen, Urine NEGATIVE (NEGATIVE)
[2021-11-26 02:20] LABS: Urine Bacteria NONE SEEN /hpf (None Seen); Urine Blood Negative /uL (Negative); Urine Hyaline Cast FEW /lpf (0 - 2); Urine WBC 3 /hpf (0 - 3)
[2021-11-26 03:38] LABS: Lactic Acid w/Reflex 3.1 mmol/L (0.4-2.0)
[2021-11-26 07:20] LABS: BUN/Creatinine Ratio 17.8; Calcium 8.5 mg/dL (8.5-10.1); Potassium 4.5 mmol/L (3.5-5.1)
[2021-11-26] MEDS ORDERED: INSULIN LANTUS (GLARGINE) 1 /0.01ml (100units/ml) SC SCH (10:00)
[2021-11-26 13:18] LABS: Basophils # (auto) 0.1 10 ^3/uL (0-0.2); Basophils % (auto) 0.6 % (0.0-2.0); Eosinophils # (auto) 0 10 ^3/uL (0-0.8); Eosinophils % (auto) 0.3 % (0.0-7.0); Hematocrit 46.2 % (41.0-53.0); Hemoglobin 15.9 g/dL (13.5-17.5); Mean Corpuscular Hemoglobin 32.9 pg (28.0-32.0); Mean Corpuscular Hgb Conc. 34.5 g/dL (32.0-36.0); Mean Corpuscular Volume 95.5 fL (80.0-100.0); Monocytes # (auto) 1.7 10 ^3/uL (0-1.3); Neutrophils # (auto) 8.5 10 ^3/uL (1.6-8.6); Neutrophils % (auto) 75.1 % (37.0-80.0); Nucleated Red Blood Cells % 0.7 %; Red Blood Cells 4.83 10^6/uL (4.5-5.90); Red Cell Distribution Width 13.3 % (11.8-14.3); White Blood Cell 11.3 10^3/uL (4.4-10.8)
[2021-11-26] MEDS ORDERED: ERGOCALCIFEROL 50,000 UNIT(1.25MG) CAP PO SCH (14:45)
[2021-11-26 14:48] LABS: Chloride 108 mmol/L (98-107); Sodium 141 mmol/L (136-145)
[2021-11-26 14:49] LABS: Anion Gap 16 (5-15); BUN/Creatinine Ratio 22.2; Blood Urea Nitrogen 24 mg/dL (7-18); Calcium 8.5 mg/dL (8.5-10.1); Carbon Dioxide 17 mmol/L (21-32); GFR African American 105 mL/min; GFR Non-African American 87 mL/min; Glucose 105 mg/dL (74-106); Phosphorus 3.2 mg/dL (2.5-4.90)
[2021-11-26] MEDS ORDERED: LACTATED RINGER'S 1,000 ML IV SCH (15:00)
[2021-11-26 16:00] VITALS: BP 126/59
== END 2021-11-26 18:47 | disposition left against medical advice (07) | DRG 420 ==
LOC: ER 20:32 → TELE 11-26 00:58
PROVIDERS: ADMIT Nurse Practitioner; ATTEND Internal Medicine
DX: E10.10 Type 1 diabetes mellitus with ketoacidosis without coma (principal); N17.9 Acute kidney failure, unspecified; D72.829 Elevated white blood cell count, unspecified; E87.5 Hyperkalemia; F15.10 Other stimulant abuse, uncomplicated; Z91.14 Patient's other noncompliance with medication regimen; Z83.3 Family history of diabetes mellitus; Z88.0 Allergy status to penicillin; Z20.822 Contact with and (suspected) exposure to COVID-19
CPT/HCPCS: 36415; 36600; 71045; 80048; 80053; 80307; 81001; 82010; 82306; 82805; 82962; 83036; 83605; 83690; 83735; 83930; 84100; 85025; 87040; 87426; 94644; 96365; 96375; G0378; J1815; J2405

== ENCOUNTER 2021-12-22 14:21 | Inpatient (IN) | payer MEDICAID ==
[~2021-12-22] VITALS: Ht 177.8 cm; Wt 72.6 kg
[2021-12-22] MEDS ORDERED: ONDANSETRON HCL 4 MG/2 ML VIAL IV ONE (15:00)
[2021-12-22] MEDS ORDERED: FAMOTIDINE (10MG/ML) 2ML VL IV ONE (15:00)
[2021-12-22] MEDS ORDERED: SODIUM CHLORIDE 0.9% 1,000 ML IV ONE (15:00)
[2021-12-22 15:19] LABS: Basophils # (auto) 0 10 ^3/uL (0-0.2); Basophils % (auto) 0.6 % (0.0-2.0); Eosinophils # (auto) 0 10 ^3/uL (0-0.8); Eosinophils % (auto) 0.2 % (0.0-7.0); Hematocrit 49.7 % (41.0-53.0); Hemoglobin 16.6 g/dL (13.5-17.5); Lymphocytes # (auto) 0.7 10 ^3/uL (0.4-5.4); Lymphocytes % (auto) 10.3 % (10.0-50.0); Mean Corpuscular Hgb Conc. 33.5 g/dL (32.0-36.0); Mean Corpuscular Volume 98.7 fL (80.0-100.0); Monocytes # (auto) 0.6 10 ^3/uL (0-1.3); Monocytes % (auto) 9.1 % (0.0-12.0); Neutrophils # (auto) 5.3 10 ^3/uL (1.6-8.6); Neutrophils % (auto) 79.8 % (37.0-80.0); Nucleated Red Blood Cells % 0.1 %; Red Blood Cells 5.04 10^6/uL (4.5-5.90); Red Cell Distribution Width 12.9 % (11.8-14.3); White Blood Cell 6.6 10^3/uL (4.4-10.8)
[2021-12-22 15:26] LABS: Albumin 4.3 g/dL (3.4-5.0); BUN/Creatinine Ratio 20.2; Calcium 8.9 mg/dL (8.5-10.1); Magnesium 2.3 mg/dL (1.6-2.6); Potassium 4.6 mmol/L (3.5-5.1)
[2021-12-22 15:29] LABS: Bilirubin, Total 0.6 mg/dL (0.2-1.0)
[2021-12-22] MEDS ORDERED: INSULIN LANTUS (GLARGINE) 1 /0.01ml (100units/ml) SC ONE ×2 (15:30→18:30)
[2021-12-22 16:32] LABS: Urine WBC None Seen /hpf (0 - 3)
[2021-12-22 16:45] LABS: Urine Bacteria NONE SEEN /hpf (None Seen); Urine Blood Negative /uL (Negative); Urine Specific Gravity 1.025 (1.001-1.035)
[2021-12-22] MEDS ORDERED: DEXTROSE (50%) 50ML SYRG IV PRN ×2 (17:15→18:30)
[2021-12-22] MEDS: D5W/SOD CHL 0.45%/KCL 20MEQ 1,000 ML IV SCH ×2 (17:15→18:12)
[2021-12-22] MEDS ORDERED: InsuLIN R (HUMAN) 100 UNITS in SODIUM CHL 0.9% 99 ML IV SCH ×2 (17:15→18:30)
[2021-12-22] MEDS ORDERED: ALUM & MAG HYDROX-SIMETH LIQ(MAALOX) 30 ML PO PRN (18:30)
[2021-12-22] MEDS ORDERED: TEMAZEPAM 15 MG CAP PO PRN (18:30)
[2021-12-22] MEDS ORDERED: MORPHINE SULFATE INJECTION 2 MG/ML SYRG IV PRN ×2 (18:30)
[2021-12-22] MEDS ORDERED: DOCUSATE SOD 100 MG CAP PO PRN (18:30)
[2021-12-22] MEDS ORDERED: POTASSIUM CHL 10MEQ/50ML 50 ML IV PRN (18:30)
[2021-12-22] MEDS ORDERED: ONDANSETRON HCL 4 MG/2 ML VIAL IV PRN (18:30)
[2021-12-22] MEDS ORDERED: SODIUM CHLORIDE 0.9% 1,000 ML IV SCH ×3 (18:30→23:15)
[2021-12-22] MEDS ORDERED: ACETAMINOPHEN 325 MG TAB PO PRN (18:30)
[2021-12-22] MEDS ORDERED: NITROGLYCERIN 0.4 MG SL TAB SL PRN (18:30)
[2021-12-22] MEDS ORDERED: HYDROcodone-ACET 5/325MG TAB PO PRN (18:30)
[2021-12-22 19:30] VITALS: BP 115/69
[2021-12-22] MEDS ORDERED: ACCU-CHEK COMFORT CURVE STRIP VI SCH (19:30)
[2021-12-22 19:42] LABS: Calcium 7.8 mg/dL (8.5-10.1); Potassium 5.1 mmol/L (3.5-5.1)
[2021-12-22 19:50] LABS: BUN/Creatinine Ratio 23.6
[2021-12-23] MEDS ORDERED: SODIUM CHLORIDE 0.9% 1,000 ML IV SCH (00:30)
[2021-12-23] MEDS ORDERED: InsuLIN REG 1unit/0.01ml Soln (100units/ml) SC SCH (07:00)
[2021-12-23] MEDS ORDERED: INSULIN LANTUS (GLARGINE) 1 /0.01ml (100units/ml) SC SCH ×2 (07:00→10:00)
== END 2021-12-22 20:36 | disposition left against medical advice (07) | DRG 420 ==
LOC: ER 14:21 → TELE 18:25
PROVIDERS: ADMIT Family Medicine; ATTEND Family Medicine
DX: E10.10 Type 1 diabetes mellitus with ketoacidosis without coma (principal); Z20.822 Contact with and (suspected) exposure to COVID-19; Z53.29 Procedure and treatment not carried out because of patient's decision for other reasons; Z83.3 Family history of diabetes mellitus; Z88.0 Allergy status to penicillin
CPT/HCPCS: 36415; 36600; 80048; 80053; 81001; 82010; 82805; 82962; 83735; 83930; 84100; 84484; 85025; 87426; 96361; 96374; 96375; G0378; J1815; J2405; J3490

== ENCOUNTER 2022-01-26 18:46 | Inpatient (IN) | payer MEDICAID ==
[~2022-01-26] VITALS: Ht 172.7 cm; Wt 72.5 kg
[2022-01-26] MEDS ORDERED: SODIUM CHLORIDE 0.9% 1,000 ML IV ONE ×2 (19:15→20:45)
[2022-01-26 20:03] LABS: Urine WBC None Seen /hpf (0 - 3)
[2022-01-26 20:12] LABS: Basophils # (auto) 0.1 10 ^3/uL (0-0.2); Eosinophils # (auto) 0 10 ^3/uL (0-0.8); Eosinophils % (auto) 0.6 % (0.0-7.0); Hematocrit 48.5 % (41.0-53.0); Hemoglobin 16.5 g/dL (13.5-17.5); Lymphocytes # (auto) 0.8 10 ^3/uL (0.4-5.4); Lymphocytes % (auto) 16.8 % (10.0-50.0); Mean Corpuscular Hemoglobin 33.2 pg (28.0-32.0); Mean Corpuscular Volume 97.4 fL (80.0-100.0); Monocytes # (auto) 0.5 10 ^3/uL (0-1.3); Monocytes % (auto) 10.5 % (0.0-12.0); Neutrophils # (auto) 3.6 10 ^3/uL (1.6-8.6); Neutrophils % (auto) 71.1 % (37.0-80.0); Nucleated Red Blood Cells % 0.2 %; Red Blood Cells 4.98 10^6/uL (4.5-5.90); Red Cell Distribution Width 12.9 % (11.8-14.3)
[2022-01-26 20:14] LABS: Urine Bacteria NONE SEEN /hpf (None Seen); Urine Blood Negative /uL (Negative); Urine Specific Gravity 1.027 (1.001-1.035)
[2022-01-26 20:24] LABS: Albumin 3.8 g/dL (3.4-5.0); Calcium 8.6 mg/dL (8.5-10.1); Potassium 4.7 mmol/L (3.5-5.1)
[2022-01-26 20:25] LABS: Amphetamine Screen, Urine POSITIVE (NEGATIVE); Barbiturate Scree,Urine NEGATIVE (NEGATIVE); Benzodiazephine Screen, Urine NEGATIVE (NEGATIVE); Cannabinoid Screen, Urine NEGATIVE (NEGATIVE); Cocaine Screen, Urine NEGATIVE (NEGATIVE); Phencyclidine Screen, Urine NEGATIVE (NEGATIVE)
[2022-01-26 20:27] LABS: Bilirubin, Total 0.6 mg/dL (0.2-1.0); Total Protein 6.9 g/dL (6.4-8.2)
[2022-01-26 20:33] LABS: Opiate Scree,Urine NEGATIVE (NEGATIVE)
[2022-01-26] MEDS ORDERED: InsuLIN REG 1unit/0.01ml Soln (100units/ml) IV ONE (20:45)
[2022-01-26] MEDS ORDERED: INSULIN LANTUS (GLARGINE) 1 /0.01ml (100units/ml) SC ONE (23:45)
[2022-01-26] MEDS ORDERED: ONDANSETRON HCL 4 MG/2 ML VIAL IV PRN (23:45)
[2022-01-26] MEDS ORDERED: InsuLIN R (HUMAN) 100 UNITS in SODIUM CHL 0.9% 99 ML IV SCH (23:45)
[2022-01-26] MEDS ORDERED: MORPHINE SULFATE INJECTION 2 MG/ML SYRG IV PRN (23:45)
[2022-01-26] MEDS ORDERED: DEXTROSE (50%) 50ML SYRG IV PRN (23:45)
[2022-01-26] MEDS ORDERED: NITROGLYCERIN 0.4 MG SL TAB SL PRN (23:45)
[2022-01-26 23:52] LABS: BUN/Creatinine Ratio 18.1; Calcium 7.8 mg/dL (8.5-10.1); Potassium 4.3 mmol/L (3.5-5.1)
[2022-01-26] MEDS: ACCU-CHEK COMFORT CURVE STRIP VI SCH (23:59)
[2022-01-27] MEDS ORDERED: InsuLIN REG 1unit/0.01ml Soln (100units/ml) ONE (00:06)
[2022-01-27] MEDS: SODIUM CHLORIDE 0.9% 1,000 ML IV SCH ×2 (00:20→02:19)
[2022-01-27] MEDS: ACCU-CHEK COMFORT CURVE STRIP VI SCH ×4 (01:34→06:10)
[2022-01-27 01:44] LABS: Albumin 3.3 g/dL (3.4-5.0); BUN/Creatinine Ratio 16.9; Calcium 7.7 mg/dL (8.5-10.1); Magnesium 2.1 mg/dL (1.6-2.6); Potassium 4.1 mmol/L (3.5-5.1)
[2022-01-27 01:47] LABS: Bilirubin, Total 0.6 mg/dL (0.2-1.0); Phosphorus 2.8 mg/dL (2.5-4.90); Total Protein 6.1 g/dL (6.4-8.2)
[2022-01-27] MEDS ORDERED: SODIUM CHLORIDE 0.9% 1,000 ML IV SCH ×2 (03:45→05:45)
[2022-01-27 04:53] LABS: Basophils # (auto) 0 10 ^3/uL (0-0.2); Eosinophils # (auto) 0.1 10 ^3/uL (0-0.8); Eosinophils % (auto) 1.8 % (0.0-7.0); Hematocrit 42.1 % (41.0-53.0); Lymphocytes # (auto) 1.5 10 ^3/uL (0.4-5.4); Lymphocytes % (auto) 34.2 % (10.0-50.0); Mean Corpuscular Hemoglobin 33.6 pg (28.0-32.0); Mean Corpuscular Hgb Conc. 35.5 g/dL (32.0-36.0); Mean Corpuscular Volume 94.7 fL (80.0-100.0); Monocytes # (auto) 0.7 10 ^3/uL (0-1.3); Monocytes % (auto) 15.1 % (0.0-12.0); Neutrophils # (auto) 2.1 10 ^3/uL (1.6-8.6); Neutrophils % (auto) 47.9 % (37.0-80.0); Nucleated Red Blood Cells % 0.1 %; Red Blood Cells 4.45 10^6/uL (4.5-5.90); Red Cell Distribution Width 12.7 % (11.8-14.3); White Blood Cell 4.4 10^3/uL (4.4-10.8)
[2022-01-27 04:59] LABS: Potassium 3.6 mmol/L (3.5-5.1)
[2022-01-27 05:06] LABS: Albumin 3.1 g/dL (3.4-5.0); Bilirubin, Total 0.5 mg/dL (0.2-1.0); Calcium 7.7 mg/dL (8.5-10.1); Total Protein 5.5 g/dL (6.4-8.2)
[2022-01-27] MEDS ORDERED: InsuLIN REG 1unit/0.01ml Soln (100units/ml) SC SCH ×2 (08:00→11:30)
[2022-01-27] MEDS ORDERED: ACCU-CHEK COMFORT CURVE STRIP VI SCH ×2 (08:00→11:30)
[2022-01-27 09:15] VITALS: BP 122/83
[2022-01-27] MEDS ORDERED: INSULIN LANTUS (GLARGINE) 1 /0.01ml (100units/ml) SC SCH (10:00)
[2022-01-27] MEDS ORDERED: chlordiazePOXIDE HCL 5 MG CAP PO PRN (10:15)
[2022-01-27] MEDS ORDERED: DEXTROSE (50%) 50ML SYRG IV PRN (10:15)
[2022-01-27 12:30] VITALS: BP 130/70
== END 2022-01-27 15:00 | disposition left against medical advice (07) | DRG 861 ==
LOC: EDBD 18:46 → ER 18:48 → TELE 23:34 → TELE-WESTW 01-27 13:07
PROVIDERS: ADMIT Nurse Practitioner; ATTEND Internal Medicine
DX: Z20.822 Contact with and (suspected) exposure to COVID-19 (principal); E11.10 Type 2 diabetes mellitus with ketoacidosis without coma; F15.10 Other stimulant abuse, uncomplicated; Z53.29 Procedure and treatment not carried out because of patient's decision for other reasons; R74.01 Elevation of levels of liver transaminase levels; Z88.0 Allergy status to penicillin; Z79.4 Long term (current) use of insulin; Z83.3 Family history of diabetes mellitus
CPT/HCPCS: 36415; 36600; 71045; 80048; 80053; 80307; 81001; 82010; 82805; 82962; 83036; 83735; 83930; 84100; 84484; 85025; 87426; 93005; 96361; 96365; 96366; 96375; G0378; J1815

== ENCOUNTER 2022-03-24 13:42 | Emergency (ER) | payer MEDICAID ==
[~2022-03-24] VITALS: Ht 177.8 cm; Wt 68.0 kg
[2022-03-24 13:57] VITALS: BP 134/77
[2022-03-24] MEDS ORDERED: LACTATED RINGER'S 1,000 ML IV ONE (14:30)
== END 2022-03-24 16:33 | disposition left against medical advice (07) ==
LOC: ER 13:42
DX: R73.9 Hyperglycemia, unspecified (principal); R06.02 Shortness of breath; Z53.21 Procedure and treatment not carried out due to patient leaving prior to being seen by health care provider
CPT/HCPCS: 36600; 82805

== ENCOUNTER 2022-03-24 17:50 | Inpatient (IN) | payer MEDICAID ==
[~2022-03-24] VITALS: Ht 167.6 cm; Wt 68.0 kg
[2022-03-24 19:18] LABS: Basophils # (auto) 0.1 10 ^3/uL (0-0.2); Eosinophils # (auto) 0.1 10 ^3/uL (0-0.8); Eosinophils % (auto) 2.3 % (0.0-7.0); Hemoglobin 15.2 g/dL (13.5-17.5); Lymphocytes # (auto) 1.4 10 ^3/uL (0.4-5.4); Lymphocytes % (auto) 24.7 % (10.0-50.0); Mean Corpuscular Hemoglobin 32.8 pg (28.0-32.0); Mean Corpuscular Hgb Conc. 34.5 g/dL (32.0-36.0); Monocytes # (auto) 0.7 10 ^3/uL (0-1.3); Monocytes % (auto) 11.9 % (0.0-12.0); Neutrophils # (auto) 3.4 10 ^3/uL (1.6-8.6); Neutrophils % (auto) 60.1 % (37.0-80.0); Nucleated Red Blood Cells % 0.1 %; Red Blood Cells 4.64 10^6/uL (4.5-5.90); Red Cell Distribution Width 12.5 % (11.8-14.3); White Blood Cell 5.6 10^3/uL (4.4-10.8)
[2022-03-24 19:29] LABS: Albumin 3.9 g/dL (3.4-5.0); Potassium 3.9 mmol/L (3.5-5.1)
[2022-03-24 19:32] LABS: Bilirubin, Total 0.5 mg/dL (0.2-1.0); Total Protein 6.9 g/dL (6.4-8.2)
[2022-03-24] MEDS ORDERED: SODIUM CHLORIDE 0.9% 1,000 ML IV ONE (20:00)
[2022-03-24] MEDS ORDERED: INSULIN LANTUS (GLARGINE) 1 /0.01ml (100units/ml) SC ONE (22:15)
[2022-03-24] MEDS ORDERED: DEXTROSE (50%) 50ML SYRG IV PRN (22:15)
[2022-03-24] MEDS ORDERED: InsuLIN R (HUMAN) 100 UNITS in SODIUM CHL 0.9% 99 ML IV SCH (22:15)
[2022-03-24] MEDS ORDERED: SODIUM CHLORIDE 0.9% 2,000 ML IV ONE (23:30)
[2022-03-24] MEDS ORDERED: InsuLIN REG 1unit/0.01ml Soln (100units/ml) SC ONE (23:30)
[2022-03-24] MEDS: ACCU-CHEK COMFORT CURVE STRIP VI SCH (23:49)
[2022-03-25] MEDS: ACCU-CHEK COMFORT CURVE STRIP VI SCH ×10 (00:08→17:06)
[2022-03-25] MEDS ORDERED: SODIUM CHLORIDE 0.9% 1,000 ML IV ONE (03:00)
[2022-03-25] MEDS ORDERED: NITROGLYCERIN 0.4 MG SL TAB SL PRN (05:15)
[2022-03-25] MEDS ORDERED: ONDANSETRON HCL 4 MG/2 ML VIAL IV PRN (05:15)
[2022-03-25] MEDS ORDERED: DEXTROSE (50%) 50ML SYRG IV PRN (05:15)
[2022-03-25] MEDS ORDERED: MORPHINE SULFATE INJECTION 2 MG/ML SYRG IV PRN (05:15)
[2022-03-25 07:30] VITALS: BP 114/73
[2022-03-25] MEDS: InsuLIN REG 1unit/0.01ml Soln (100units/ml) SC SCH ×3 (08:00→16:00)
[2022-03-25] MEDS ORDERED: PANTOPRAZOLE 40 MG TAB PO SCH (10:00)
[2022-03-25] MEDS ORDERED: INSULIN LANTUS (GLARGINE) 1 /0.01ml (100units/ml) SC SCH (10:00)
== END 2022-03-25 17:27 | disposition home or self-care (01) | DRG 52 ==
LOC: EDBD 17:50 → EDSEX 17:50 → ER 17:50 → TELE 03-25 05:06 → TELE-CENTR 03-25 08:59
PROVIDERS: ADMIT Nurse Practitioner; ATTEND Internal Medicine
DX: G93.41 Metabolic encephalopathy (principal); E11.10 Type 2 diabetes mellitus with ketoacidosis without coma; K70.9 Alcoholic liver disease, unspecified; Z20.822 Contact with and (suspected) exposure to COVID-19; F10.10 Alcohol abuse, uncomplicated; Z79.4 Long term (current) use of insulin; Z88.0 Allergy status to penicillin; Z83.3 Family history of diabetes mellitus; Z91.14 Patient's other noncompliance with medication regimen
CPT/HCPCS: 36415; 70450; 80053; 82010; 82962; 83036; 85025; 96360; 96361; 96372; 99291; G0378; J1815

== ENCOUNTER 2022-04-10 22:43 | Emergency (ER) | payer MEDICAID ==
[~2022-04-10] VITALS: Ht 177.8 cm; Wt 68.0 kg
[2022-04-10 23:34] LABS: Basophils # (auto) 0 10 ^3/uL (0-0.2); Basophils % (auto) 0.6 % (0.0-2.0); Eosinophils # (auto) 0.1 10 ^3/uL (0-0.8); Eosinophils % (auto) 1.4 % (0.0-7.0); Hematocrit 42.6 % (41.0-53.0); Hemoglobin 15.2 g/dL (13.5-17.5); Lymphocytes # (auto) 1.2 10 ^3/uL (0.4-5.4); Lymphocytes % (auto) 21.7 % (10.0-50.0); Mean Corpuscular Hgb Conc. 35.6 g/dL (32.0-36.0); Mean Corpuscular Volume 92.5 fL (80.0-100.0); Monocytes # (auto) 0.6 10 ^3/uL (0-1.3); Monocytes % (auto) 10.3 % (0.0-12.0); Neutrophils # (auto) 3.7 10 ^3/uL (1.6-8.6); Nucleated Red Blood Cells % 0.1 %; Red Cell Distribution Width 12.3 % (11.8-14.3); White Blood Cell 5.7 10^3/uL (4.4-10.8)
[2022-04-11 00:57] LABS: Albumin 3.4 g/dL (3.4-5.0); BUN/Creatinine Ratio 13.9; Potassium 4.1 mmol/L (3.5-5.1)
[2022-04-11 01:06] LABS: Bilirubin, Total 0.3 mg/dL (0.2-1.0); Total Protein 6.9 g/dL (6.4-8.2)
[2022-04-11] MEDS ORDERED: INSLANTI SC (02:49)
[2022-04-11 03:05] VITALS: BP 123/76
== END 2022-04-11 03:41 | disposition home or self-care (01) ==
LOC: ER 22:43
DX: E11.65 Type 2 diabetes mellitus with hyperglycemia (principal); R51.9 Headache, unspecified; Z88.0 Allergy status to penicillin
CPT/HCPCS: 36415; 80053; 82010; 83735; 85025

== ENCOUNTER 2022-04-19 18:18 | Inpatient (IN) | payer MEDICAID ==
[~2022-04-19] VITALS: Ht 180.3 cm; Wt 72.5 kg
[~2022-04-19 18:18] MED LIST changes: -InsuLIN REG 1unit/0.01ml Soln (100units/ml) IV ONE; -LEVO750T8 PO; -ONDANSETRON ODT 4 MG TAB PO ONE; -PROCHLORPERAZINE EDISYLATE 5 MG/ML 2ML VIAL IV ONE; -PROCHLORPERAZINE EDISYLATE 5 MG/ML 2ML VIAL ONE; -SODIUM CHLORIDE 0.9% 1,000 ML IV ONE; -SODIUM CHLORIDE 0.9% 2,000 ML IV ONE
[2022-04-19] MEDS ORDERED: SODIUM CHLORIDE 0.9% 2,000 ML IV ONE (18:45)
[2022-04-19] MEDS ORDERED: SODIUM CHLORIDE 0.9% 1,000 ML IV ONE ×2 (21:30)
[2022-04-19] MEDS ORDERED: ONDANSETRON HCL 4 MG/2 ML VIAL IV ONE (21:30)
[2022-04-19 22:02] LABS: Albumin 3.7 g/dL (3.4-5.0); Calcium 8.1 mg/dL (8.5-10.1); Potassium 5.5 mmol/L (3.5-5.1)
[2022-04-19 22:05] LABS: BUN/Creatinine Ratio 14.3; Bilirubin, Total 0.7 mg/dL (0.2-1.0); Total Protein 6.8 g/dL (6.4-8.2)
[2022-04-19 22:27] LABS: Basophils # (auto) 0.2 10 ^3/uL (0-0.2); Basophils % (auto) 1.6 % (0.0-2.0); Eosinophils # (auto) 0 10 ^3/uL (0-0.8); Lymphocytes # (auto) 0.5 10 ^3/uL (0.4-5.4); Lymphocytes % (auto) 3.6 % (10.0-50.0); Mean Corpuscular Hemoglobin 33.2 pg (28.0-32.0); Mean Corpuscular Volume 97.6 fL (80.0-100.0); Monocytes # (auto) 1.2 10 ^3/uL (0-1.3); Monocytes % (auto) 8.2 % (0.0-12.0); Neutrophils % (auto) 86.6 % (37.0-80.0); Nucleated Red Blood Cells % 0.1 %; Red Blood Cells 4.51 10^6/uL (4.5-5.90); Red Cell Distribution Width 12.5 % (11.8-14.3)
[2022-04-19] MEDS ORDERED: DEXTROSE (50%) 50ML SYRG IV PRN (23:00)
[2022-04-19] MEDS ORDERED: InsuLIN R (HUMAN) 100 UNITS in SODIUM CHL 0.9% 99 ML IV SCH (23:00)
[2022-04-19] MEDS ORDERED: INSULIN LANTUS (GLARGINE) 1 /0.01ml (100units/ml) SC ONE (23:00)
[2022-04-19 23:18] LABS: Urine Bacteria FEW /hpf (None Seen); Urine Blood Negative /uL (Negative); Urine Mucus FEW (None Seen); Urine Specific Gravity 1.019 (1.001-1.035); Urine WBC 1 /hpf (0 - 3)
[2022-04-19 23:18] LABS: Magnesium 2.1 mg/dL (1.6-2.6); Phosphorus 3.6 mg/dL (2.5-4.90)
[2022-04-19] MEDS ORDERED: InsuLIN REG 1unit/0.01ml Soln (100units/ml) ONE (23:26)
[2022-04-19] MEDS ORDERED: ACETAMINOPHEN 325 MG TAB PO PRN (23:30)
[2022-04-19] MEDS ORDERED: DOCUSATE SOD 100 MG CAP PO PRN (23:30)
[2022-04-19] MEDS ORDERED: ONDANSETRON HCL 4 MG/2 ML VIAL IV PRN (23:30)
[2022-04-19] MEDS: ACCU-CHEK COMFORT CURVE STRIP VI SCH (23:34)
[2022-04-19] MEDS: SODIUM CHLORIDE 0.9% 1,000 ML IV SCH (23:37)
[2022-04-19] MEDS ORDERED: MORPHINE SULFATE INJ 2 MG/ml SYRG IV PRN (23:45)
[2022-04-19] MEDS ORDERED: levoFLOXacin 500MG 100 ML IV ONE (23:45)
[2022-04-19] MEDS ORDERED: NITROGLYCERIN 0.4 MG SL TAB SL PRN (23:45)
[2022-04-20] MEDS: ACCU-CHEK COMFORT CURVE STRIP VI SCH ×11 (01:17→22:07)
[2022-04-20] MEDS: SODIUM CHLORIDE 0.9% 1,000 ML IV SCH ×4 (01:30→20:10)
[2022-04-20] MEDS ORDERED: SODIUM CHLORIDE 0.9% 1,000 ML IV SCH (03:00)
[2022-04-20 05:41] LABS: Albumin 2.7 g/dL (3.4-5.0); BUN/Creatinine Ratio 10.5; Calcium 6.9 mg/dL (8.5-10.1); Potassium 4.3 mmol/L (3.5-5.1)
[2022-04-20 05:53] LABS: Bilirubin, Total 0.6 mg/dL (0.2-1.0); Total Protein 5.6 g/dL (6.4-8.2)
[2022-04-20 07:54] LABS: Basophils # (auto) 0 10 ^3/uL (0-0.2); Basophils % (auto) 0.5 % (0.0-2.0); Eosinophils # (auto) 0 10 ^3/uL (0-0.8); Eosinophils % (auto) 0.2 % (0.0-7.0); Hematocrit 40.3 % (41.0-53.0); Lymphocytes # (auto) 1.4 10 ^3/uL (0.4-5.4); Lymphocytes % (auto) 18.2 % (10.0-50.0); Mean Corpuscular Hemoglobin 33.2 pg (28.0-32.0); Mean Corpuscular Hgb Conc. 34.7 g/dL (32.0-36.0); Mean Corpuscular Volume 95.5 fL (80.0-100.0); Monocytes # (auto) 1.1 10 ^3/uL (0-1.3); Monocytes % (auto) 13.7 % (0.0-12.0); Neutrophils # (auto) 5.3 10 ^3/uL (1.6-8.6); Neutrophils % (auto) 67.4 % (37.0-80.0); Nucleated Red Blood Cells % 0.1 %; Red Blood Cells 4.22 10^6/uL (4.5-5.90); Red Cell Distribution Width 12.5 % (11.8-14.3); White Blood Cell 7.9 10^3/uL (4.4-10.8)
[2022-04-20] MEDS: INSULIN LANTUS (GLARGINE) 1 /0.01ml (100units/ml) SC SCH (10:06)
[2022-04-20] MEDS: ENOXAPARIN SOD 40 MG/0.4 ML SYRINGE SC SCH (10:24)
[2022-04-20 12:25] LABS: BUN/Creatinine Ratio 12.3; Calcium 7.5 mg/dL (8.5-10.1); Potassium 3.6 mmol/L (3.5-5.1)
[2022-04-20] MEDS ORDERED: DEXTROSE (50%) 50ML SYRG IV PRN (12:45)
[2022-04-20] MEDS: D5W/SOD CHL 0.45% 1,000 ML IV SCH ×2 (12:46→22:07)
[2022-04-20 18:18] LABS: BUN/Creatinine Ratio 12.8; Calcium 7.2 mg/dL (8.5-10.1); Potassium 3.6 mmol/L (3.5-5.1)
[2022-04-20] MEDS: HYDROcodone-ACET 5/325MG TAB PO PRN (20:00)
[2022-04-20] MEDS ORDERED: levoFLOXacin 500MG 100 ML IV SCH (21:00)
[2022-04-20] MEDS ORDERED: InsuLIN REG 1unit/0.01ml Soln (100units/ml) SC SCH (22:00)
[2022-04-21] MEDS: HYDROcodone-ACET 5/325MG TAB PO PRN (03:38)
[2022-04-21] MEDS: D5W/SOD CHL 0.45% 1,000 ML IV SCH (04:57)
[2022-04-21 05:00] VITALS: BP 103/65
[2022-04-21] MEDS: ACCU-CHEK COMFORT CURVE STRIP VI SCH ×3 (06:36→12:03)
[2022-04-21] MEDS ORDERED: DEXTROSE (50%) 50ML SYRG IV PRN (06:45)
[2022-04-21] MEDS: InsuLIN REG 1unit/0.01ml Soln (100units/ml) SC SCH ×2 (06:50→12:04)
[2022-04-21] MEDS ORDERED: LEVO750T8 PO (08:59)
[2022-04-21] MEDS ORDERED: INSLANTI SC (08:59)
[2022-04-21 09:00] VITALS: BP 145/73
[2022-04-21] MEDS: INSULIN LANTUS (GLARGINE) 1 /0.01ml (100units/ml) SC SCH (09:52)
[2022-04-21] MEDS: ENOXAPARIN SOD 40 MG/0.4 ML SYRINGE SC SCH (09:52)
[2022-04-21 13:00] VITALS: BP 102/69
[2022-04-21 13:07] VITALS: BP 139/93
[2022-04-21] MEDS ORDERED: InsuLIN REG 1unit/0.01ml Soln (100units/ml) SC SCH (22:00)
== END 2022-04-21 15:17 | disposition home or self-care (01) | DRG 420 ==
LOC: EDBD 18:18 → ER 18:18 → OVERFLOW 23:43 → TELE-CENTR 04-20 21:57
PROVIDERS: ADMIT Nurse Practitioner Family; ATTEND Family Medicine
DX: E10.10 Type 1 diabetes mellitus with ketoacidosis without coma (principal); G93.41 Metabolic encephalopathy; E87.1 Hypo-osmolality and hyponatremia; D72.829 Elevated white blood cell count, unspecified; E86.0 Dehydration; E87.5 Hyperkalemia; Z20.822 Contact with and (suspected) exposure to COVID-19; F17.210 Nicotine dependence, cigarettes, uncomplicated; Z59.00 Homelessness unspecified; Z79.4 Long term (current) use of insulin; Z88.0 Allergy status to penicillin; Z83.3 Family history of diabetes mellitus; Z91.19 Patient's noncompliance with other medical treatment and regimen; T38.3X6A Underdosing of insulin and oral hypoglycemic [antidiabetic] drugs, initial encounter; Z91.14 Patient's other noncompliance with medication regimen
CPT/HCPCS: 36415; 71045; 80048; 80053; 81001; 82010; 82962; 83690; 83735; 83930; 84100; 84484; 85025; 87040; 93005; 96361; 96365; 96375; 99291; G0378; J1815; J1956; J2405

== ENCOUNTER → 2022-04-19 | Emergency (ER) | payer MEDICAID ==
[~2022-04-19] VITALS: Ht 172.7 cm; Wt 70.3 kg
[~2022-04-19] MED LIST changes: +InsuLIN REG 1unit/0.01ml Soln (100units/ml) IV ONE; +LEVO750T8 PO; +ONDANSETRON ODT 4 MG TAB PO ONE; +PROCHLORPERAZINE EDISYLATE 5 MG/ML 2ML VIAL IV ONE; +PROCHLORPERAZINE EDISYLATE 5 MG/ML 2ML VIAL ONE; +SODIUM CHLORIDE 0.9% 1,000 ML IV ONE; +SODIUM CHLORIDE 0.9% 2,000 ML IV ONE
[2022-04-19 05:39] LABS: Basophils # (auto) 0.1 10 ^3/uL (0-0.2); Basophils % (auto) 1.1 % (0.0-2.0); Eosinophils # (auto) 0.1 10 ^3/uL (0-0.8); Eosinophils % (auto) 1.1 % (0.0-7.0); Hematocrit 48.3 % (41.0-53.0); Hemoglobin 17.2 g/dL (13.5-17.5); Lymphocytes # (auto) 1.3 10 ^3/uL (0.4-5.4); Lymphocytes % (auto) 24.5 % (10.0-50.0); Mean Corpuscular Hemoglobin 33.7 pg (28.0-32.0); Mean Corpuscular Hgb Conc. 35.7 g/dL (32.0-36.0); Mean Corpuscular Volume 94.4 fL (80.0-100.0); Monocytes # (auto) 0.6 10 ^3/uL (0-1.3); Monocytes % (auto) 11.1 % (0.0-12.0); Neutrophils # (auto) 3.4 10 ^3/uL (1.6-8.6); Neutrophils % (auto) 62.2 % (37.0-80.0); Nucleated Red Blood Cells % 0.2 %; Red Blood Cells 5.11 10^6/uL (4.5-5.90); Red Cell Distribution Width 12.4 % (11.8-14.3); White Blood Cell 5.5 10^3/uL (4.4-10.8)
[2022-04-19 05:53] LABS: BUN/Creatinine Ratio 14.1; Calcium 9.5 mg/dL (8.5-10.1); Potassium 4.4 mmol/L (3.5-5.1)
[2022-04-19 05:56] LABS: Bilirubin, Total 0.6 mg/dL (0.2-1.0); Total Protein 7.8 g/dL (6.4-8.2)
[2022-04-19 11:10] LABS: Urine WBC None Seen /hpf (0 - 3)
[2022-04-19 11:29] VITALS: BP 118/60
[2022-04-19 11:39] LABS: Urine Bacteria NONE SEEN /hpf (None Seen); Urine Blood Negative /uL (Negative); Urine Specific Gravity 1.037 (1.001-1.035)
[2022-04-19 11:46] LABS: Amphetamine Screen, Urine POSITIVE (NEGATIVE)
[2022-04-19 11:54] LABS: Barbiturate Scree,Urine NEGATIVE (NEGATIVE); Benzodiazephine Screen, Urine NEGATIVE (NEGATIVE); Cannabinoid Screen, Urine NEGATIVE (NEGATIVE); Cocaine Screen, Urine NEGATIVE (NEGATIVE); Opiate Scree,Urine NEGATIVE (NEGATIVE); Phencyclidine Screen, Urine NEGATIVE (NEGATIVE)
== END | disposition home or self-care (01) ==
LOC: ER 04:15
DX: G93.41 Metabolic encephalopathy (principal); E11.65 Type 2 diabetes mellitus with hyperglycemia; E86.0 Dehydration; R74.8 Abnormal levels of other serum enzymes; F10.129 Alcohol abuse with intoxication, unspecified; F15.10 Other stimulant abuse, uncomplicated; F17.210 Nicotine dependence, cigarettes, uncomplicated; F12.10 Cannabis abuse, uncomplicated; F14.10 Cocaine abuse, uncomplicated; Z59.00 Homelessness unspecified; Y90.8 Blood alcohol level of 240 mg/100 ml or more
CPT/HCPCS: 36415; 71046; 80053; 80307; 81001; 82962; 83735; 85025; 93005; 96361; 96374; 96375; 99285; J0780; J1815; J7030; Q0162

== ENCOUNTER 2022-05-12 08:34 | Inpatient (IN) | payer MEDICAID ==
[~2022-05-12] VITALS: Ht 177.8 cm; Wt 63.5 kg
[~2022-05-12 08:34] MED LIST changes: +LEVO750T8 PO
[2022-05-12] MEDS ORDERED: ONDANSETRON HCL 4 MG/2 ML VIAL IV ONE (09:00)
[2022-05-12] MEDS ORDERED: SODIUM CHLORIDE 0.9% 1,000 ML IV ONE ×3 (09:00→11:00)
[2022-05-12 09:12] LABS: Urine Bacteria NONE SEEN /hpf (None Seen); Urine Blood Negative /uL (Negative); Urine Specific Gravity 1.033 (1.001-1.035); Urine WBC <1 /hpf (0 - 3)
[2022-05-12 09:16] LABS: Amphetamine Screen, Urine POSITIVE (NEGATIVE); Barbiturate Scree,Urine NEGATIVE (NEGATIVE); Benzodiazephine Screen, Urine NEGATIVE (NEGATIVE); Cannabinoid Screen, Urine NEGATIVE (NEGATIVE); Cocaine Screen, Urine NEGATIVE (NEGATIVE)
[2022-05-12 09:21] LABS: Basophils # (auto) 0.1 10 ^3/uL (0-0.2); Basophils % (auto) 1.2 % (0.0-2.0); Eosinophils # (auto) 0.1 10 ^3/uL (0-0.8); Eosinophils % (auto) 1.4 % (0.0-7.0); Hematocrit 49.8 % (41.0-53.0); Hemoglobin 16.9 g/dL (13.5-17.5); Lymphocytes # (auto) 1.1 10 ^3/uL (0.4-5.4); Lymphocytes % (auto) 21.1 % (10.0-50.0); Mean Corpuscular Hemoglobin 32.8 pg (28.0-32.0); Mean Corpuscular Hgb Conc. 33.9 g/dL (32.0-36.0); Mean Corpuscular Volume 96.5 fL (80.0-100.0); Monocytes # (auto) 0.5 10 ^3/uL (0-1.3); Monocytes % (auto) 9.5 % (0.0-12.0); Neutrophils # (auto) 3.5 10 ^3/uL (1.6-8.6); Neutrophils % (auto) 66.8 % (37.0-80.0); Nucleated Red Blood Cells % 0.2 %; Red Blood Cells 5.16 10^6/uL (4.5-5.90); Red Cell Distribution Width 13.3 % (11.8-14.3); White Blood Cell 5.2 10^3/uL (4.4-10.8)
[2022-05-12 09:24] LABS: Opiate Scree,Urine NEGATIVE (NEGATIVE); Phencyclidine Screen, Urine NEGATIVE (NEGATIVE)
[2022-05-12 09:37] LABS: Albumin 4.5 g/dL (3.4-5.0); Potassium 4.5 mmol/L (3.5-5.1)
[2022-05-12 09:41] LABS: BUN/Creatinine Ratio 16.8; Bilirubin, Total 0.6 mg/dL (0.2-1.0); Total Protein 8.6 g/dL (6.4-8.2)
[2022-05-12] MEDS ORDERED: DEXTROSE (50%) 50ML SYRG IV PRN (11:00)
[2022-05-12] MEDS ORDERED: INSULIN LANTUS (GLARGINE) 1 /0.01ml (100units/ml) SC ONE (11:00)
[2022-05-12] MEDS ORDERED: HYDROcodone-ACET 5/325MG TAB PO ONE (12:30)
[2022-05-12] MEDS: ACCU-CHEK COMFORT CURVE STRIP VI SCH ×4 (12:38→16:48)
[2022-05-12] MEDS: InsuLIN R (HUMAN) 100 UNITS in SODIUM CHL 0.9% 99 ML IV SCH ×2 (13:45→15:00)
[2022-05-12 13:58] LABS: Magnesium 2.5 mg/dL (1.6-2.6); Phosphorus 3.9 mg/dL (2.5-4.90)
[2022-05-12 16:00] VITALS: BP 110/67
[2022-05-13] MEDS ORDERED: INSULIN LANTUS (GLARGINE) 1 /0.01ml (100units/ml) SC SCH (10:00)
[2022-05-13] MEDS ORDERED: FOLIC ACID 1 MG, MULTIPLE VITAMIN 10 ML, THIAMINE INJ 100 MG in SODIUM CHLORIDE 0.9% 1,... INJ SCH (12:00)
== END 2022-05-12 17:15 | disposition left against medical advice (07) | DRG 420 ==
LOC: ER 08:34 → EDBD 08:34 → TELE 13:40
PROVIDERS: ADMIT Registered Nurse; ATTEND Registered Nurse
DX: E10.10 Type 1 diabetes mellitus with ketoacidosis without coma (principal); F10.10 Alcohol abuse, uncomplicated; F10.129 Alcohol abuse with intoxication, unspecified; F19.10 Other psychoactive substance abuse, uncomplicated; F17.210 Nicotine dependence, cigarettes, uncomplicated; Z20.822 Contact with and (suspected) exposure to COVID-19; Z53.29 Procedure and treatment not carried out because of patient's decision for other reasons; Z59.00 Homelessness unspecified; Z83.3 Family history of diabetes mellitus; Z88.0 Allergy status to penicillin; Z79.4 Long term (current) use of insulin
CPT/HCPCS: 36415; 36600; 80053; 80307; 80320; 81001; 82010; 82805; 82962; 83036; 83735; 83930; 84100; 85025; 96361; 96372; 96374; 99291; G0378; J1815; J2405

== ENCOUNTER 2022-05-21 08:15 | Emergency (ER) | payer MEDICAID ==
[~2022-05-21] VITALS: Ht 177.8 cm; Wt 68.0 kg
[2022-05-21 08:41] VITALS: BP 132/71
[2022-05-21] MEDS ORDERED: INSLANTI SC ×2 (08:46→08:48)
== END 2022-05-21 09:02 | disposition home or self-care (01) ==
LOC: ER 08:15 → EDBD 08:15 → ER 09:02
DX: E10.8 Type 1 diabetes mellitus with unspecified complications (principal); Z76.0 Encounter for issue of repeat prescription

== ENCOUNTER 2022-06-13 19:45 | Inpatient (IN) | payer MEDICAID ==
[~2022-06-13] VITALS: Ht 177.8 cm; Wt 62.5 kg
[2022-06-13] MEDS ORDERED: SODIUM CHLORIDE 0.9% 1,000 ML IV ONE ×2 (21:00)
[2022-06-13 21:10] LABS: Basophils # (auto) 0 10 ^3/uL (0-0.2); Basophils % (auto) 0.3 % (0.0-2.0); Eosinophils # (auto) 0 10 ^3/uL (0-0.8); Hematocrit 52.5 % (41.0-53.0); Hemoglobin 16.5 g/dL (13.5-17.5); Lymphocytes # (auto) 0.4 10 ^3/uL (0.4-5.4); Lymphocytes % (auto) 3.1 % (10.0-50.0); Mean Corpuscular Hemoglobin 31.4 pg (28.0-32.0); Mean Corpuscular Hgb Conc. 31.4 g/dL (32.0-36.0); Monocytes # (auto) 1.3 10 ^3/uL (0-1.3); Monocytes % (auto) 9.3 % (0.0-12.0); Neutrophils # (auto) 12.2 10 ^3/uL (1.6-8.6); Neutrophils % (auto) 87.3 % (37.0-80.0); Nucleated Red Blood Cells % 0.1 %; Red Blood Cells 5.25 10^6/uL (4.5-5.90); Red Cell Distribution Width 13.2 % (11.8-14.3)
[2022-06-13 21:33] LABS: Albumin 4.5 g/dL (3.4-5.0); Calcium 8.9 mg/dL (8.5-10.1); Potassium 4.5 mmol/L (3.5-5.1)
[2022-06-13 21:42] LABS: BUN/Creatinine Ratio 15.1; Bilirubin, Total 0.7 mg/dL (0.2-1.0); Total Protein 8.7 g/dL (6.4-8.2)
[2022-06-13] MEDS ORDERED: DEXTROSE (50%) 50ML SYRG IV PRN (22:15)
[2022-06-13] MEDS ORDERED: POTASSIUM CHL 20MEQ/100ML 100 ML IV PRN (22:15)
[2022-06-13] MEDS: ACCU-CHEK COMFORT CURVE STRIP VI SCH (22:30)
[2022-06-13] MEDS ORDERED: METOCLOPRAMIDE HCL 5MG/ml INJ 2ml VIAL IV ONE (23:00)
[2022-06-13 23:36] LABS: BUN/Creatinine Ratio 18.4; Calcium 8.1 mg/dL (8.5-10.1); Potassium 4.7 mmol/L (3.5-5.1)
[2022-06-14] MEDS: InsuLIN R (HUMAN) 100 UNITS in SODIUM CHL 0.9% 99 ML IV SCH ×2 (01:34→10:39)
[2022-06-14] MEDS: ACCU-CHEK COMFORT CURVE STRIP VI SCH ×17 (01:34→23:45)
[2022-06-14] MEDS ORDERED: IBUPROFEN 600 MG TAB PO PRN (02:00)
[2022-06-14] MEDS ORDERED: DOCUSATE SOD 100 MG CAP PO PRN (02:00)
[2022-06-14] MEDS: SOD CHL 0.9%/ KCL 20MEQ 1,000 ML IV SCH ×5 (02:08→23:44)
[2022-06-14] MEDS ORDERED: NITROGLYCERIN 0.4 MG SL TAB SL PRN (03:45)
[2022-06-14] MEDS ORDERED: MORPHINE SULFATE INJ 2 MG/ml SYRG IV PRN (03:45)
[2022-06-14] MEDS: levoFLOXacin 500MG 100 ML IV SCH (05:08)
[2022-06-14] MEDS: ONDANSETRON HCL 4 MG/2 ML VIAL IV PRN ×3 (05:14→19:14)
[2022-06-14] MEDS: MORPHINE SULFATE INJ 2 MG/ml SYRG IV PRN ×4 (05:14→23:16)
[2022-06-14 05:34] LABS: Potassium 4.4 mmol/L (3.5-5.1)
[2022-06-14 05:41] LABS: BUN/Creatinine Ratio 19.3; Calcium 7.8 mg/dL (8.5-10.1)
[2022-06-14] MEDS: PROMETHAZINE HCL 25 MG/ML 1ML IV PRN ×2 (06:31→13:56)
[2022-06-14] MEDS: FAMOTIDINE (10MG/ML) 2ML VL IV SCH ×2 (10:31→23:09)
[2022-06-14 10:46] LABS: Potassium 4.7 mmol/L (3.5-5.1)
[2022-06-14 10:48] LABS: BUN/Creatinine Ratio 23.9
[2022-06-14] MEDS ORDERED: DEXTROSE (50%) 50ML SYRG IV PRN (13:30)
[2022-06-14] MEDS ORDERED: InsuLIN REG 1unit/0.01ml Soln (100units/ml) IV ONE (15:15)
[2022-06-14 15:50] LABS: Urine Bacteria NONE SEEN /hpf (None Seen); Urine Blood Negative /uL (Negative); Urine Mucus FEW (None Seen); Urine Specific Gravity 1.022 (1.001-1.035); Urine WBC 1 /hpf (0 - 3)
[2022-06-14 16:02] LABS: Alcohol, Urine < 3.0 mg/dL (0-10); Amphetamine Screen, Urine POSITIVE (NEGATIVE); Barbiturate Scree,Urine NEGATIVE (NEGATIVE); Benzodiazephine Screen, Urine NEGATIVE (NEGATIVE); Cannabinoid Screen, Urine NEGATIVE (NEGATIVE); Cocaine Screen, Urine NEGATIVE (NEGATIVE); Opiate Scree,Urine POSITIVE (NEGATIVE); Phencyclidine Screen, Urine NEGATIVE (NEGATIVE)
[2022-06-14 16:42] LABS: BUN/Creatinine Ratio 18.3; Calcium 7.5 mg/dL (8.5-10.1); Potassium 4.6 mmol/L (3.5-5.1)
[2022-06-14] MEDS: InsuLIN REG 1unit/0.01ml Soln (100units/ml) SC SCH ×2 (17:59→23:19)
[2022-06-14 22:00] VITALS: BP 112/65
[2022-06-14] MEDS ORDERED: INSULIN LANTUS (GLARGINE) 1 /0.01ml (100units/ml) SC SCH ×2 (22:00)
[2022-06-14] MEDS ORDERED: POTASSIUM CHL 20MEQ/100ML 0 ML IV ONE (23:00)
[2022-06-15] MEDS: ACCU-CHEK COMFORT CURVE STRIP VI SCH ×4 (02:29→12:19)
[2022-06-15 05:00] VITALS: BP 109/68
[2022-06-15] MEDS: InsuLIN REG 1unit/0.01ml Soln (100units/ml) SC SCH ×2 (06:00→12:20)
[2022-06-15 06:43] LABS: Basophils # (auto) 0 10 ^3/uL (0-0.2); Basophils % (auto) 0.5 % (0.0-2.0); Eosinophils # (auto) 0 10 ^3/uL (0-0.8); Hematocrit 39.2 % (41.0-53.0); Hemoglobin 13.4 g/dL (13.5-17.5); Lymphocytes # (auto) 1.2 10 ^3/uL (0.4-5.4); Lymphocytes % (auto) 24.4 % (10.0-50.0); Mean Corpuscular Hemoglobin 32.5 pg (28.0-32.0); Mean Corpuscular Hgb Conc. 34.1 g/dL (32.0-36.0); Mean Corpuscular Volume 95.2 fL (80.0-100.0); Monocytes # (auto) 0.7 10 ^3/uL (0-1.3); Monocytes % (auto) 14.1 % (0.0-12.0); Red Blood Cells 4.12 10^6/uL (4.5-5.90); Red Cell Distribution Width 13.4 % (11.8-14.3); White Blood Cell 5.1 10^3/uL (4.4-10.8)
[2022-06-15 07:02] LABS: Potassium 4.3 mmol/L (3.5-5.1)
[2022-06-15 07:06] LABS: Albumin 2.9 g/dL (3.4-5.0); BUN/Creatinine Ratio 19.8; Calcium 7.8 mg/dL (8.5-10.1)
[2022-06-15 07:17] LABS: Bilirubin, Total 0.6 mg/dL (0.2-1.0); Total Protein 5.2 g/dL (6.4-8.2)
[2022-06-15] MEDS: SOD CHL 0.9%/ KCL 20MEQ 1,000 ML IV SCH (07:35)
[2022-06-15 08:00] VITALS: BP 126/67
[2022-06-15] MEDS ORDERED: SODIUM CHLORIDE 0.9% 1,000 ML IV ONE (08:45)
[2022-06-15 09:00] VITALS: BP 126/67
[2022-06-15] MEDS: levoFLOXacin 500MG 100 ML IV SCH (09:28)
[2022-06-15] MEDS: ONDANSETRON HCL 4 MG/2 ML VIAL IV PRN (09:28)
[2022-06-15] MEDS: FAMOTIDINE (10MG/ML) 2ML VL IV SCH (09:28)
[2022-06-15 13:00] VITALS: BP 124/74
[2022-06-15 15:29] VITALS: BP 124/74
== END 2022-06-15 15:50 | disposition home or self-care (01) | DRG 420 ==
LOC: ER 19:45 → OVERFLOW 06-14 03:45 → TELE 06-14 15:11 → TELE-CENTR 06-14 21:27
PROVIDERS: ADMIT Nurse Practitioner Family; ATTEND Internal Medicine Nephrology
DX: E11.10 Type 2 diabetes mellitus with ketoacidosis without coma (principal); G93.40 Encephalopathy, unspecified; N17.9 Acute kidney failure, unspecified; D72.829 Elevated white blood cell count, unspecified; F15.10 Other stimulant abuse, uncomplicated; E11.65 Type 2 diabetes mellitus with hyperglycemia; Z20.822 Contact with and (suspected) exposure to COVID-19; F17.210 Nicotine dependence, cigarettes, uncomplicated; Z59.00 Homelessness unspecified; Z83.3 Family history of diabetes mellitus; Z91.19 Patient's noncompliance with other medical treatment and regimen; Z88.0 Allergy status to penicillin
CPT/HCPCS: 36415; 36600; 71045; 80048; 80053; 80307; 81001; 82010; 82805; 82962; 83690; 85025; 87040; 87077; 87186; 96361; 96365; 96375; 99291; G0378; J1815; J1956; J2405; J3480; J3490

== ENCOUNTER 2022-06-19 21:46 | Emergency (ER) | payer MEDICAID ==
[~2022-06-19] VITALS: Ht 177.8 cm; Wt 74.0 kg
[2022-06-19 22:13] VITALS: BP 134/76
== END 2022-06-19 22:56 | disposition left against medical advice (07) ==
LOC: ER 21:46 → EDBD 21:46 → ER 22:38
DX: F10.10 Alcohol abuse, uncomplicated (principal); R07.89 Other chest pain; Y90.9 Presence of alcohol in blood, level not specified; Z53.21 Procedure and treatment not carried out due to patient leaving prior to being seen by health care provider
CPT/HCPCS: 93005

== ENCOUNTER 2022-07-01 16:08 | Inpatient (IN) | payer MEDICAID ==
[~2022-07-01] VITALS: Ht 172.7 cm; Wt 68.0 kg
[2022-07-01] MEDS ORDERED: SODIUM CHLORIDE 0.9% 1,000 ML IV ONE ×2 (16:45→17:30)
[2022-07-01] MEDS ORDERED: SODIUM BICARBONATE 8.4 % INJ 50ML VIAL IV ONE ×2 (17:30→19:00)
[2022-07-01 18:00] LABS: Hematocrit 48.1 % (41.0-53.0); Hemoglobin 15.2 g/dL (13.5-17.5); Mean Corpuscular Hemoglobin 31.8 pg (28.0-32.0); Mean Corpuscular Hgb Conc. 31.6 g/dL (32.0-36.0); Mean Corpuscular Volume 100.4 fL (80.0-100.0); Red Blood Cells 4.79 10^6/uL (4.5-5.90); Red Cell Distribution Width 13.4 % (11.8-14.3); White Blood Cell 5.1 10^3/uL (4.4-10.8)
[2022-07-01 18:12] LABS: Band Neutrophils % (manual) 0; Basophils % (manual) 0 (0.0-2.0); Blast Cells 0; Eosinophils % (manual) 0 (0-7); Metamyelocytes % 0; Myelocytes % 0; Promyelocytes % 0; Reactive Lymphocytes 0
[2022-07-01 18:16] LABS: Calcium 8.3 mg/dL (8.5-10.1); Magnesium 2.4 mg/dL (1.6-2.6); Potassium 5.4 mmol/L (3.5-5.1)
[2022-07-01 18:19] LABS: Bilirubin, Total 0.6 mg/dL (0.2-1.0); Total Protein 7.2 g/dL (6.4-8.2)
[2022-07-01 18:21] LABS: Lactic Acid w/Reflex 2.1 mmol/L (0.4-2.0)
[2022-07-01 19:00] LABS: BUN/Creatinine Ratio 14.8
[2022-07-01] MEDS ORDERED: InsuLIN REG 1unit/0.01ml Soln (100units/ml) IV ONE (19:00)
[2022-07-01] MEDS ORDERED: DEXTROSE (50%) 50ML SYRG IV PRN (19:00)
[2022-07-01 19:15] LABS: Lymphocytes % (manual) 19 (10.0-50.0)
[2022-07-01 19:16] LABS: Monocytes % (manual) 17 (0-12)
[2022-07-01] MEDS: InsuLIN R (HUMAN) 100 UNITS in SODIUM CHL 0.9% 99 ML IV SCH (20:25)
[2022-07-01] MEDS: ACCU-CHEK COMFORT CURVE STRIP VI SCH ×3 (20:43→22:33)
[2022-07-01] MEDS ORDERED: NITROGLYCERIN 0.4 MG SL TAB SL PRN (21:15)
[2022-07-01] MEDS ORDERED: SODIUM CHLORIDE 0.9% 500 ML IV ONE (21:15)
[2022-07-01] MEDS ORDERED: MORPHINE SULFATE INJ 2 MG/ml SYRG IV PRN (21:15)
[2022-07-01] MEDS ORDERED: ONDANSETRON HCL 4 MG/2 ML VIAL IV PRN (21:15)
[2022-07-01 21:16] LABS: Urine Bacteria NONE SEEN /hpf (None Seen); Urine Blood Negative /uL (Negative); Urine Specific Gravity 1.026 (1.001-1.035); Urine WBC <1 /hpf (0 - 3)
[2022-07-01 21:24] LABS: Amphetamine Screen, Urine NEGATIVE (NEGATIVE); Barbiturate Scree,Urine NEGATIVE (NEGATIVE); Benzodiazephine Screen, Urine NEGATIVE (NEGATIVE); Cannabinoid Screen, Urine NEGATIVE (NEGATIVE); Cocaine Screen, Urine NEGATIVE (NEGATIVE); Opiate Scree,Urine NEGATIVE (NEGATIVE); Phencyclidine Screen, Urine NEGATIVE (NEGATIVE)
[2022-07-01 21:41] LABS: Anion Gap 29 (5-15); BUN/Creatinine Ratio 14.5; Blood Urea Nitrogen 18 mg/dL (7-18); Calcium 7.7 mg/dL (8.5-10.1); Chloride 101 mmol/L (98-107); GFR African American 89 mL/min; GFR Non-African American 74 mL/min; Sodium 138 mmol/L (136-145)
[2022-07-01 21:53] LABS: Carbon Dioxide 8 mmol/L (21-32); Glucose 403 mg/dL (74-106)
[2022-07-02] MEDS: ACCU-CHEK COMFORT CURVE STRIP VI SCH ×9 (00:24→13:24)
[2022-07-02] MEDS: SODIUM CHLORIDE 0.9% 1,000 ML IV SCH ×2 (01:11→07:40)
[2022-07-02 01:34] LABS: BUN/Creatinine Ratio 17.9; Calcium 7.5 mg/dL (8.5-10.1)
[2022-07-02 05:17] LABS: Hematocrit 40.1 % (41.0-53.0); Hemoglobin 13.7 g/dL (13.5-17.5); Mean Corpuscular Hemoglobin 32.6 pg (28.0-32.0); Mean Corpuscular Hgb Conc. 34.3 g/dL (32.0-36.0); Mean Corpuscular Volume 95.1 fL (80.0-100.0); Red Blood Cells 4.21 10^6/uL (4.5-5.90); Red Cell Distribution Width 13.4 % (11.8-14.3); White Blood Cell 4.9 10^3/uL (4.4-10.8)
[2022-07-02 05:19] LABS: Albumin 3.1 g/dL (3.4-5.0); Calcium 7.9 mg/dL (8.5-10.1); Potassium 3.7 mmol/L (3.5-5.1)
[2022-07-02 05:20] LABS: Band Neutrophils % (manual) 0; Basophils % (manual) 0 (0.0-2.0); Blast Cells 0; Metamyelocytes % 0; Myelocytes % 0; Promyelocytes % 0; Reactive Lymphocytes 0
[2022-07-02 05:26] LABS: BUN/Creatinine Ratio 16.5; Bilirubin, Total 0.4 mg/dL (0.2-1.0); Total Protein 5.9 g/dL (6.4-8.2)
[2022-07-02 08:05] LABS: Eosinophils % (manual) 3 (0-7); Lymphocytes % (manual) 32 (10.0-50.0); Monocytes % (manual) 18 (0-12)
[2022-07-02] MEDS: InsuLIN R (HUMAN) 100 UNITS in SODIUM CHL 0.9% 99 ML IV SCH ×2 (09:49→11:48)
[2022-07-02] MEDS ORDERED: PANTOPRAZOLE 40 MG/10 ML VIAL INJ IV SCH (10:00)
[2022-07-02 11:00] VITALS: BP 104/72
[2022-07-02 12:30] LABS: Calcium 8.1 mg/dL (8.5-10.1); Potassium 3.9 mmol/L (3.5-5.1)
[2022-07-02 12:33] LABS: BUN/Creatinine Ratio 17.3
== END 2022-07-02 14:10 | disposition left against medical advice (07) | DRG 420 ==
LOC: EDBD 16:08 → ER 16:08 → TELE 21:21
PROVIDERS: ADMIT Nurse Practitioner; ATTEND Internal Medicine
DX: E11.10 Type 2 diabetes mellitus with ketoacidosis without coma (principal); E86.0 Dehydration; Z53.29 Procedure and treatment not carried out because of patient's decision for other reasons; F12.90 Cannabis use, unspecified, uncomplicated; F14.90 Cocaine use, unspecified, uncomplicated; Z20.822 Contact with and (suspected) exposure to COVID-19; F17.210 Nicotine dependence, cigarettes, uncomplicated; Z59.00 Homelessness unspecified; Z79.4 Long term (current) use of insulin; Z83.3 Family history of diabetes mellitus; Z91.19 Patient's noncompliance with other medical treatment and regimen; Z88.0 Allergy status to penicillin
CPT/HCPCS: 36415; 36600; 71045; 80048; 80053; 80307; 81001; 82010; 82805; 82962; 83036; 83605; 83735; 83930; 84100; 84484; 85007; 85027; 96361; 96365; 96366; 96375; 96376; G0378; J1815

== ENCOUNTER 2022-07-02 15:16 | Inpatient (IN) | payer MEDICAID ==
[2022-07-02] MEDS ORDERED: SODIUM CHLORIDE 0.9% 1,000 ML IVB ONE (15:30)
[2022-07-02 17:58] LABS: Basophils # (auto) 0.1 10 ^3/uL (0-0.2); Basophils % (auto) 1.2 % (0.0-2.0); Eosinophils # (auto) 0 10 ^3/uL (0-0.8); Eosinophils % (auto) 0.6 % (0.0-7.0); Hematocrit 43.6 % (41.0-53.0); Hemoglobin 14.2 g/dL (13.5-17.5); Lymphocytes # (auto) 0.8 10 ^3/uL (0.4-5.4); Mean Corpuscular Hemoglobin 32.3 pg (28.0-32.0); Mean Corpuscular Hgb Conc. 32.6 g/dL (32.0-36.0); Mean Corpuscular Volume 98.9 fL (80.0-100.0); Monocytes # (auto) 0.9 10 ^3/uL (0-1.3); Neutrophils % (auto) 63.2 % (37.0-80.0); Nucleated Red Blood Cells % 0.2 %; Red Blood Cells 4.41 10^6/uL (4.5-5.90); Red Cell Distribution Width 13.4 % (11.8-14.3); White Blood Cell 4.8 10^3/uL (4.4-10.8)
[2022-07-02 18:10] LABS: Albumin 3.4 g/dL (3.4-5.0); Calcium 8.2 mg/dL (8.5-10.1); Magnesium 1.8 mg/dL (1.6-2.6); Potassium 4.4 mmol/L (3.5-5.1)
[2022-07-02 18:13] LABS: BUN/Creatinine Ratio 11.3; Bilirubin, Total 0.5 mg/dL (0.2-1.0); Total Protein 6.5 g/dL (6.4-8.2)
[2022-07-02] MEDS ORDERED: DOCUSATE SOD 100 MG CAP PO PRN (19:00)
[2022-07-02] MEDS ORDERED: DEXTROSE (50%) 50ML SYRG IV PRN (19:00)
[2022-07-02] MEDS ORDERED: SODIUM CHLORIDE 0.9% 2,000 ML IV ONE (19:00)
[2022-07-02] MEDS ORDERED: InsuLIN R (HUMAN) 100 UNITS in SODIUM CHL 0.9% 99 ML IV SCH (19:00)
[2022-07-02] MEDS ORDERED: SODIUM CHLORIDE 0.9% 1,000 ML IV SCH ×3 (19:00→23:00)
[2022-07-02] MEDS ORDERED: INSULIN LANTUS (GLARGINE) 1 /0.01ml (100units/ml) SC ONE (19:00)
[2022-07-02] MEDS ORDERED: HYDROcodone-ACET 5/325MG TAB PO PRN (19:00)
[2022-07-02] MEDS ORDERED: ACETAMINOPHEN 325 MG TAB PO PRN (19:00)
[2022-07-02] MEDS ORDERED: MORPHINE SULFATE INJ 2 MG/ml SYRG IV PRN (19:00)
[2022-07-02] MEDS ORDERED: InsuLIN REG 1unit/0.01ml Soln (100units/ml) IV ONE (19:00)
[2022-07-02] MEDS ORDERED: ONDANSETRON HCL 4 MG/2 ML VIAL IV PRN (19:00)
[2022-07-02] MEDS ORDERED: ACCU-CHEK COMFORT CURVE STRIP VI SCH (19:30)
[2022-07-03] MEDS ORDERED: SODIUM CHLORIDE 0.9% 1,000 ML IV SCH (01:00)
[2022-07-03] MEDS ORDERED: ENOXAPARIN SOD 40 MG/0.4 ML SYRINGE SC SCH (10:00)
[2022-07-03] MEDS ORDERED: INSULIN LANTUS (GLARGINE) 1 /0.01ml (100units/ml) SC SCH ×2 (10:00)
== END 2022-07-02 19:02 | disposition left against medical advice (07) | DRG 420 ==
LOC: ER 15:16 → EDBD 15:16 → TELE 18:55 → UNDOADMIN 19:05 → TELE 19:05 → UNDOADMIN 19:21
PROVIDERS: ADMIT Internal Medicine; ATTEND Internal Medicine
DX: E11.10 Type 2 diabetes mellitus with ketoacidosis without coma (principal); N17.9 Acute kidney failure, unspecified; E87.1 Hypo-osmolality and hyponatremia; E86.0 Dehydration; Z20.822 Contact with and (suspected) exposure to COVID-19; Z53.29 Procedure and treatment not carried out because of patient's decision for other reasons; F17.210 Nicotine dependence, cigarettes, uncomplicated; Z59.00 Homelessness unspecified; Z79.4 Long term (current) use of insulin; Z83.3 Family history of diabetes mellitus; Z91.19 Patient's noncompliance with other medical treatment and regimen
CPT/HCPCS: 36415; 36600; 80053; 82010; 82805; 83735; 83930; 85025; 93005; 99291; G0378; J1815

== ENCOUNTER 2022-07-05 04:52 | Inpatient (IN) | payer MEDICAID ==
[~2022-07-05] VITALS: Ht 170.2 cm; Wt 66.0 kg
[2022-07-05 05:42] LABS: Basophils # (auto) 0.1 10 ^3/uL (0-0.2); Eosinophils # (auto) 0 10 ^3/uL (0-0.8)
[2022-07-05 05:44] LABS: Basophils % (auto) 1.2 % (0.0-2.0); Eosinophils % (auto) 0.1 % (0.0-7.0); Hematocrit 51.6 % (41.0-53.0); Hemoglobin 16.8 g/dL (13.5-17.5); Lymphocytes # (auto) 1.7 10 ^3/uL (0.4-5.4); Lymphocytes % (auto) 23.2 % (10.0-50.0); Mean Corpuscular Hemoglobin 33.3 pg (28.0-32.0); Mean Corpuscular Hgb Conc. 32.7 g/dL (32.0-36.0); Monocytes # (auto) 1.4 10 ^3/uL (0-1.3); Neutrophils % (auto) 55.4 % (37.0-80.0); Nucleated Red Blood Cells % 0.2 %; Red Blood Cells 5.06 10^6/uL (4.5-5.90); Red Cell Distribution Width 13.5 % (11.8-14.3); White Blood Cell 7.1 10^3/uL (4.4-10.8)
[2022-07-05 05:49] LABS: Monocytes % (auto) 20.1 % (0.0-12.0)
[2022-07-05 06:04] LABS: Albumin 4.2 g/dL (3.4-5.0); Calcium 8.9 mg/dL (8.5-10.1); Potassium 4.7 mmol/L (3.5-5.1)
[2022-07-05 06:13] LABS: BUN/Creatinine Ratio 6.9; Bilirubin, Total 0.6 mg/dL (0.2-1.0); Total Protein 8.1 g/dL (6.4-8.2)
[2022-07-05] MEDS ORDERED: SODIUM CHLORIDE 0.9% 3,000 ML IV ONE (06:30)
[2022-07-05 06:38] LABS: Urine Bacteria NONE SEEN /hpf (None Seen); Urine Blood Negative /uL (Negative); Urine Mucus FEW (None Seen); Urine Specific Gravity 1.024 (1.001-1.035); Urine WBC <1 /hpf (0 - 3)
[2022-07-05] MEDS ORDERED: SODIUM BICARBONATE 8.4 % INJ 50ML VIAL IV ONE ×3 (07:15→16:00)
[2022-07-05 07:26] LABS: Magnesium 2.4 mg/dL (1.6-2.6)
[2022-07-05] MEDS ORDERED: InsuLIN REG 1unit/0.01ml Soln (100units/ml) IV ONE ×3 (08:45→11:45)
[2022-07-05] MEDS ORDERED: SODIUM CHLORIDE 0.9% 1,000 ML IV ONE ×2 (11:45→15:45)
[2022-07-05] MEDS ORDERED: D5W/SOD CHL 0.45% 1,000 ML IV ONE (13:00)
[2022-07-05] MEDS ORDERED: ONDANSETRON HCL 4 MG/2 ML VIAL IV ONE (15:15)
[2022-07-05] MEDS ORDERED: METOCLOPRAMIDE HCL 5MG/ml INJ 2ml VIAL IV PRN (15:45)
[2022-07-05] MEDS ORDERED: DOCUSATE SOD 100 MG CAP PO PRN (15:45)
[2022-07-05] MEDS ORDERED: MORPHINE SULFATE INJ 2 MG/ml SYRG IV PRN (15:45)
[2022-07-05] MEDS ORDERED: ONDANSETRON HCL 4 MG/2 ML VIAL IV PRN (15:45)
[2022-07-05] MEDS ORDERED: ACETAMINOPHEN 325 MG TAB PO PRN (16:00)
[2022-07-05] MEDS ORDERED: SODIUM BICARBONATE 50ML VIAL 150 ML in D5W 5% 1,000 ML IV ONE (16:00)
[2022-07-05 16:25] LABS: BUN/Creatinine Ratio 10.1; Calcium 7.5 mg/dL (8.5-10.1); Potassium 4.3 mmol/L (3.5-5.1)
[2022-07-05] MEDS: HEPARIN SODIUM (PORCINE) 5000 UNITS/ML 1ML VIAL SC SCH (16:37)
[2022-07-05] MEDS ORDERED: INSULIN LANTUS (GLARGINE) 1 /0.01ml (100units/ml) SC ONE (18:45)
[2022-07-05] MEDS ORDERED: DEXTROSE (50%) 50ML SYRG IV PRN (18:45)
[2022-07-05] MEDS ORDERED: InsuLIN R (HUMAN) 100 UNITS in SODIUM CHL 0.9% 99 ML IV SCH (18:45)
[2022-07-05] MEDS: ACCU-CHEK COMFORT CURVE STRIP VI SCH ×4 (19:30→23:57)
[2022-07-05] MEDS: HYDROcodone-ACET 5/325MG TAB PO PRN (22:56)
[2022-07-05 23:16] LABS: BUN/Creatinine Ratio 8.2; Calcium 7.9 mg/dL (8.5-10.1); Potassium 4.4 mmol/L (3.5-5.1)
[2022-07-06] MEDS: D5W/SOD CHL 0.45% 1,000 ML IV SCH ×2 (00:14→06:28)
[2022-07-06] MEDS: HEPARIN SODIUM (PORCINE) 5000 UNITS/ML 1ML VIAL SC SCH ×3 (00:23→16:15)
[2022-07-06] MEDS: ACCU-CHEK COMFORT CURVE STRIP VI SCH ×4 (01:43→06:00)
[2022-07-06 03:52] LABS: BUN/Creatinine Ratio 9.5; Calcium 7.3 mg/dL (8.5-10.1)
[2022-07-06] MEDS ORDERED: POTASSIUM CHL 20 Meq TABLET PO ONE (05:00)
[2022-07-06] MEDS: HYDROcodone-ACET 5/325MG TAB PO PRN (06:31)
[2022-07-06 06:55] LABS: Potassium 3.1 mmol/L (3.5-5.1)
[2022-07-06 07:00] LABS: BUN/Creatinine Ratio 9.9; Calcium 7.7 mg/dL (8.5-10.1)
[2022-07-06] MEDS ORDERED: DEXTROSE (50%) 50ML SYRG IV PRN ×3 (08:15→16:00)
[2022-07-06] MEDS ORDERED: INSULIN LANTUS (GLARGINE) 1 /0.01ml (100units/ml) SC SCH ×2 (10:00→22:00)
[2022-07-06] MEDS ORDERED: INSULIN LANTUS (GLARGINE) 1 /0.01ml (100units/ml) SC ONE (11:00)
[2022-07-06] MEDS: POTASSIUM CHL 20MEQ/100ML 100 ML IV SCH ×3 (11:17→16:22)
[2022-07-06] MEDS ORDERED: InsuLIN REG 1unit/0.01ml Soln (100units/ml) SC SCH ×5 (11:30→22:00)
[2022-07-06] MEDS ORDERED: ACCU-CHEK COMFORT CURVE STRIP VI SCH ×3 (11:30→17:00)
[2022-07-06 14:00] VITALS: BP 91/56
== END 2022-07-06 17:44 | disposition left against medical advice (07) | DRG 420 ==
LOC: ER 04:52 → EDBD 04:52 → TELE 15:55
PROVIDERS: ADMIT Internal Medicine; ATTEND Internal Medicine
DX: E10.10 Type 1 diabetes mellitus with ketoacidosis without coma (principal); N17.9 Acute kidney failure, unspecified; F17.210 Nicotine dependence, cigarettes, uncomplicated; R00.0 Tachycardia, unspecified; Z20.822 Contact with and (suspected) exposure to COVID-19; R06.82 Tachypnea, not elsewhere classified; Z53.21 Procedure and treatment not carried out due to patient leaving prior to being seen by health care provider; Z91.14 Patient's other noncompliance with medication regimen; Z83.3 Family history of diabetes mellitus; Z59.00 Homelessness unspecified; Z88.0 Allergy status to penicillin; E86.0 Dehydration; Z79.4 Long term (current) use of insulin
CPT/HCPCS: 36415; 36600; 71045; 80048; 80053; 81001; 82010; 82805; 82962; 83690; 83735; 84443; 85025; 93005; 96361; 96374; 96376; 99291; G0378; J1815; J2405; J3480

== ENCOUNTER 2022-07-31 14:10 | Emergency (ER) | payer MEDICAID ==
[~2022-07-31] VITALS: Ht 172.7 cm; Wt 73.0 kg
[2022-07-31] MEDS ORDERED: THIAMINE 100mg/ml INJ (200mg/2ml VIAL) IV ONE (14:45)
[2022-07-31] MEDS ORDERED: SODIUM CHLORIDE 0.9% 1,000 ML IV ONE ×3 (14:45→17:00)
[2022-07-31 15:27] LABS: Urine Bacteria NONE SEEN /hpf (None Seen); Urine Blood Negative /uL (Negative); Urine Specific Gravity 1.026 (1.001-1.035); Urine WBC <1 /hpf (0 - 3)
[2022-07-31 15:31] LABS: Basophils # (auto) 0 10 ^3/uL (0-0.2); Basophils % (auto) 0.8 % (0.0-2.0); Eosinophils # (auto) 0 10 ^3/uL (0-0.8); Hematocrit 39.6 % (41.0-53.0); Hemoglobin 13.3 g/dL (13.5-17.5); Lymphocytes # (auto) 1.5 10 ^3/uL (0.4-5.4); Lymphocytes % (auto) 38.7 % (10.0-50.0); Mean Corpuscular Hemoglobin 31.8 pg (28.0-32.0); Mean Corpuscular Hgb Conc. 33.5 g/dL (32.0-36.0); Mean Corpuscular Volume 94.9 fL (80.0-100.0); Monocytes # (auto) 0.5 10 ^3/uL (0-1.3); Monocytes % (auto) 14.4 % (0.0-12.0); Neutrophils # (auto) 1.7 10 ^3/uL (1.6-8.6); Neutrophils % (auto) 45.1 % (37.0-80.0); Red Blood Cells 4.18 10^6/uL (4.5-5.90); Red Cell Distribution Width 13.9 % (11.8-14.3); White Blood Cell 3.8 10^3/uL (4.4-10.8)
[2022-07-31 15:55] LABS: Amphetamine Screen, Urine POSITIVE (NEGATIVE); Barbiturate Scree,Urine NEGATIVE (NEGATIVE); Benzodiazephine Screen, Urine NEGATIVE (NEGATIVE); Cannabinoid Screen, Urine NEGATIVE (NEGATIVE); Cocaine Screen, Urine NEGATIVE (NEGATIVE); Opiate Scree,Urine NEGATIVE (NEGATIVE); Phencyclidine Screen, Urine NEGATIVE (NEGATIVE)
[2022-07-31 16:19] LABS: Alanine Aminotransferase 27 U/L (16-61); Alkaline Phosphatase 159 U/L (45-117); Anion Gap 13 (5-15); Aspartate Aminotransferase 24 U/L (15-37); BUN/Creatinine Ratio 9.1; Blood Urea Nitrogen 8 mg/dL (7-18); Carbon Dioxide 21 mmol/L (21-32); Chloride 105 mmol/L (98-107); GFR African American 133 mL/min; GFR Non-African American 110 mL/min; Potassium 3.8 mmol/L (3.5-5.1); Sodium 139 mmol/L (136-145)
[2022-07-31 16:20] LABS: Albumin 2.9 g/dL (3.4-5.0); Bilirubin, Total 0.2 mg/dL (0.2-1.0); Blood Alcohol 51.2 mg/dL (0-5); Calcium 7.6 mg/dL (8.5-10.1); Total Protein 6.1 g/dL (6.4-8.2)
[2022-07-31 16:24] LABS: Glucose 420 mg/dL (74-106)
[2022-07-31] MEDS ORDERED: InsuLIN REG 1unit/0.01ml Soln (100units/ml) IV ONE (16:45)
[2022-07-31 20:00] VITALS: BP 114/79
== END 2022-07-31 20:37 | disposition home or self-care (01) ==
LOC: ER 14:10 → EDBD 14:10 → ER 20:28
DX: F10.129 Alcohol abuse with intoxication, unspecified (principal); F15.10 Other stimulant abuse, uncomplicated; E11.65 Type 2 diabetes mellitus with hyperglycemia; F17.210 Nicotine dependence, cigarettes, uncomplicated; F14.10 Cocaine abuse, uncomplicated; Z59.00 Homelessness unspecified; Z88.0 Allergy status to penicillin; Y90.8 Blood alcohol level of 240 mg/100 ml or more
CPT/HCPCS: 36415; 80053; 80307; 80320; 81001; 82962; 85025; 96361; 96374; 96375; 99285; J1815; J3411; J7030

== ENCOUNTER 2022-09-23 22:29 | Emergency (ER) | payer MEDICAID ==
[~2022-09-23] VITALS: Ht 177.8 cm; Wt 75.0 kg
[2022-09-23 23:00] VITALS: BP 93/64
== END 2022-09-24 01:30 | disposition left against medical advice (07) ==
LOC: ER 22:31
DX: S40.022A Contusion of left upper arm, initial encounter (principal); Z53.21 Procedure and treatment not carried out due to patient leaving prior to being seen by health care provider; Y04.2XXA Assault by strike against or bumped into by another person, initial encounter; Y93.89 Activity, other specified; Y92.89 Other specified places as the place of occurrence of the external cause; Y99.8 Other external cause status

== ENCOUNTER 2022-10-10 00:18 | Emergency (ER) | payer MEDICAID ==
[~2022-10-10] VITALS: Ht 177.8 cm; Wt 70.0 kg
[2022-10-10 03:19] VITALS: BP 131/87
[2022-10-10] MEDS ORDERED: HYDROcodone-ACET 10/325MG TAB PO ONE (04:00)
[2022-10-10] MEDS ORDERED: ONDANSETRON ODT 4 MG TAB PO ONE (04:00)
[2022-10-10] MEDS ORDERED: ONDA-144 PO (04:30)
[2022-10-10] MEDS ORDERED: HYDR-4902 PO (04:30)
== END 2022-10-10 04:35 | disposition left against medical advice (07) ==
LOC: EDBD 00:18 → ER 00:18 → EDUNIT# 00:18 → ER 04:20
DX: S52.022A Displaced fracture of olecranon process without intraarticular extension of left ulna, initial encounter for closed fracture (principal); E11.9 Type 2 diabetes mellitus without complications; F17.210 Nicotine dependence, cigarettes, uncomplicated; Z79.4 Long term (current) use of insulin; Z79.2 Long term (current) use of antibiotics; Z88.0 Allergy status to penicillin; X58.XXXA Exposure to other specified factors, initial encounter; Y93.89 Activity, other specified; Y92.89 Other specified places as the place of occurrence of the external cause; Y99.8 Other external cause status
CPT/HCPCS: 73080; 99283; Q0162

== ENCOUNTER 2022-12-10 02:41 | Inpatient (IN) | payer MEDICAID ==
[~2022-12-10] VITALS: Ht 177.8 cm; Wt 68.2 kg
[2022-12-10] MEDS ORDERED: ONDANSETRON HCL 4 MG/2 ML VIAL IV ONE (03:15)
[2022-12-10] MEDS ORDERED: SODIUM CHLORIDE 0.9% 1,000 ML IV ONE (03:15)
[2022-12-10 03:48] LABS: Basophils # (auto) 0.1 10 ^3/uL (0-0.2); Basophils % (auto) 0.4 % (0.0-2.0); Eosinophils # (auto) 0 10 ^3/uL (0-0.8); Hemoglobin 16.6 g/dL (13.5-17.5); Lymphocytes # (auto) 1.1 10 ^3/uL (0.4-5.4); Lymphocytes % (auto) 8.3 % (10.0-50.0); Mean Corpuscular Hemoglobin 30.3 pg (28.0-32.0); Mean Corpuscular Hgb Conc. 28.6 g/dL (32.0-36.0); Mean Corpuscular Volume 105.9 fL (80.0-100.0); Monocytes % (auto) 7.2 % (0.0-12.0); Neutrophils # (auto) 11.3 10 ^3/uL (1.6-8.6); Neutrophils % (auto) 84.1 % (37.0-80.0); Nucleated Red Blood Cells % 0.1 %; Red Blood Cells 5.48 10^6/uL (4.5-5.90); Red Cell Distribution Width 15.1 % (11.8-14.3); White Blood Cell 13.4 10^3/uL (4.4-10.8)
[2022-12-10 04:17] LABS: Urine Bacteria NONE SEEN /hpf (None Seen); Urine Blood 2+ /uL (Negative); Urine Hyaline Cast FEW /lpf (0 - 2); Urine Specific Gravity 1.021 (1.001-1.035); Urine WBC 5 /hpf (0 - 3)
[2022-12-10 04:46] LABS: Anion Gap 32 (5-15); Blood Urea Nitrogen 24 mg/dL (7-18); Chloride 96 mmol/L (98-107); Lipase 753 U/L (73-393); Sodium 132 mmol/L (136-145)
[2022-12-10 04:50] LABS: Alanine Aminotransferase 78 U/L (16-61); Alkaline Phosphatase 215 U/L (45-117); Aspartate Aminotransferase 32 U/L (15-37); Bilirubin, Total 0.5 mg/dL (0.2-1.0); Calcium 8.6 mg/dL (8.5-10.1); GFR African American 104 mL/min; GFR Non-African American 86 mL/min; Total Protein 7.9 g/dL (6.4-8.2)
[2022-12-10 05:05] LABS: Carbon Dioxide 4 mmol/L (21-32); Potassium 5.6 mmol/L (3.5-5.1)
[2022-12-10 05:06] LABS: Glucose 466 mg/dL (74-106)
[2022-12-10] MEDS ORDERED: INSULIN LANTUS (GLARGINE) 1 /0.01ml (100units/ml) SC ONE (05:15)
[2022-12-10] MEDS ORDERED: DEXTROSE (50%) 50ML SYRG IV PRN ×2 (05:15→14:00)
[2022-12-10] MEDS ORDERED: InsuLIN R (HUMAN) 100 UNITS in SODIUM CHL 0.9% 99 ML IV SCH (05:15)
[2022-12-10] MEDS: SODIUM CHLORIDE 0.9% 1,000 ML IV SCH ×4 (05:29→18:14)
[2022-12-10] MEDS ORDERED: cefTRIAXone 1GM/50ML D5W 50 ML IV ONE ×2 (05:30→17:00)
[2022-12-10] MEDS ORDERED: InsuLIN REG 1unit/0.01ml Soln (100units/ml) ONE (05:37)
[2022-12-10 05:43] LABS: Anion Gap 30 (5-15); BUN/Creatinine Ratio 22.4; Blood Urea Nitrogen 22 mg/dL (7-18); Calcium 8.1 mg/dL (8.5-10.1); Chloride 97 mmol/L (98-107); GFR African American 117 mL/min; GFR Non-African American 97 mL/min; Magnesium 2.5 mg/dL (1.6-2.6); Phosphorus 4.8 mg/dL (2.5-4.90); Potassium 4.9 mmol/L (3.5-5.1); Sodium 133 mmol/L (136-145)
[2022-12-10] MEDS: ACCU-CHEK COMFORT CURVE STRIP VI SCH ×7 (05:50→22:42)
[2022-12-10 05:55] LABS: Carbon Dioxide 6 mmol/L (21-32); Glucose 438 mg/dL (74-106)
[2022-12-10] MEDS ORDERED: NITROGLYCERIN 0.4 MG SL TAB SL PRN (06:00)
[2022-12-10] MEDS ORDERED: SODIUM BICARBONATE 50ML VIAL 100 ML in SOD CHL 0.45% 1,000 ML IV SCH (06:00)
[2022-12-10] MEDS ORDERED: ONDANSETRON HCL 4 MG/2 ML VIAL IV PRN (06:00)
[2022-12-10 06:20] LABS: Basophils # (auto) 0 10 ^3/uL (0-0.2); Basophils % (auto) 0.3 % (0.0-2.0); Eosinophils # (auto) 0 10 ^3/uL (0-0.8); Hematocrit 55.1 % (41.0-53.0); Hemoglobin 17.1 g/dL (13.5-17.5); Lymphocytes # (auto) 0.8 10 ^3/uL (0.4-5.4); Mean Corpuscular Hemoglobin 30.4 pg (28.0-32.0); Mean Corpuscular Hgb Conc. 31.1 g/dL (32.0-36.0); Mean Corpuscular Volume 97.9 fL (80.0-100.0); Monocytes # (auto) 0.7 10 ^3/uL (0-1.3); Monocytes % (auto) 5.7 % (0.0-12.0); Neutrophils # (auto) 10.1 10 ^3/uL (1.6-8.6); Nucleated Red Blood Cells % 0.1 %; Red Blood Cells 5.62 10^6/uL (4.5-5.90); Red Cell Distribution Width 14.4 % (11.8-14.3); White Blood Cell 11.6 10^3/uL (4.4-10.8)
[2022-12-10] MEDS ORDERED: KETOROLAC TROMETH 30 MG/ML 1ML VIAL IV ONE (08:30)
[2022-12-10] MEDS ORDERED: SODIUM CHLORIDE 0.9% 1,000 ML IV SCH (09:15)
[2022-12-10] MEDS: PANTOPRAZOLE 40 MG/10 ML VIAL INJ IV SCH (10:15)
[2022-12-10] MEDS ORDERED: SODIUM BICARBONATE 50ML VIAL 75 ML in D5W 5% 1,000 ML IV SCH ×2 (11:00→11:15)
[2022-12-10 11:34] LABS: Alcohol, Urine < 3.0 mg/dL (0-10); Amphetamine Screen, Urine POSITIVE (NEGATIVE); Barbiturate Scree,Urine NEGATIVE (NEGATIVE); Benzodiazephine Screen, Urine NEGATIVE (NEGATIVE); Cannabinoid Screen, Urine NEGATIVE (NEGATIVE); Cocaine Screen, Urine NEGATIVE (NEGATIVE); Opiate Scree,Urine NEGATIVE (NEGATIVE)
[2022-12-10 11:41] LABS: Phencyclidine Screen, Urine NEGATIVE (NEGATIVE)
[2022-12-10 11:52] LABS: Calcium 8.2 mg/dL (8.5-10.1); Potassium 4.7 mmol/L (3.5-5.1)
[2022-12-10] MEDS: KETOROLAC TROMETH 30 MG/ML 1ML VIAL IV PRN (14:58)
[2022-12-10 16:08] LABS: Calcium 8.4 mg/dL (8.5-10.1); Potassium 4.2 mmol/L (3.5-5.1)
[2022-12-10 16:11] LABS: BUN/Creatinine Ratio 21.1
[2022-12-10] MEDS: InsuLIN REG 1unit/0.01ml Soln (100units/ml) SC SCH ×2 (16:51→22:45)
[2022-12-10 18:54] LABS: Anion Gap 11 (5-15); BUN/Creatinine Ratio 20.9; Blood Urea Nitrogen 18 mg/dL (7-18); Calcium 7.4 mg/dL (8.5-10.1); Carbon Dioxide 20 mmol/L (21-32); Chloride 108 mmol/L (98-107); GFR African American 136 mL/min; GFR Non-African American 113 mL/min; Glucose 122 mg/dL (74-106); Potassium 4.3 mmol/L (3.5-5.1); Sodium 139 mmol/L (136-145)
[2022-12-10 19:54] LABS: BUN/Creatinine Ratio 20.5; Calcium 8.1 mg/dL (8.5-10.1); Potassium 4.4 mmol/L (3.5-5.1)
[2022-12-10] MEDS: MORPHINE SULFATE INJ 2 MG/ml SYRG IV PRN (21:39)
[2022-12-10 22:49] VITALS: BP_SYST 116; BP_DIAS 72; BP_DIAS 77
[2022-12-11] MEDS: SODIUM CHLORIDE 0.9% 1,000 ML IV SCH ×2 (01:05→09:08)
[2022-12-11] MEDS: KETOROLAC TROMETH 30 MG/ML 1ML VIAL IV PRN (01:53)
[2022-12-11 05:00] VITALS: BP 102/61
[2022-12-11 06:15] LABS: Basophils # (auto) 0 10 ^3/uL (0-0.2); Basophils % (auto) 0.2 % (0.0-2.0); Eosinophils # (auto) 0.1 10 ^3/uL (0-0.8); Hematocrit 41.7 % (41.0-53.0); Hemoglobin 14.3 g/dL (13.5-17.5); Lymphocytes # (auto) 1.3 10 ^3/uL (0.4-5.4); Lymphocytes % (auto) 20.9 % (10.0-50.0); Mean Corpuscular Hemoglobin 31.6 pg (28.0-32.0); Mean Corpuscular Hgb Conc. 34.3 g/dL (32.0-36.0); Mean Corpuscular Volume 92.2 fL (80.0-100.0); Monocytes # (auto) 0.6 10 ^3/uL (0-1.3); Monocytes % (auto) 9.6 % (0.0-12.0); Neutrophils # (auto) 4.3 10 ^3/uL (1.6-8.6); Neutrophils % (auto) 68.3 % (37.0-80.0); Nucleated Red Blood Cells % 0.2 %; Red Blood Cells 4.53 10^6/uL (4.5-5.90); Red Cell Distribution Width 14.2 % (11.8-14.3); White Blood Cell 6.2 10^3/uL (4.4-10.8)
[2022-12-11] MEDS: InsuLIN REG 1unit/0.01ml Soln (100units/ml) SC SCH ×2 (06:33→12:23)
[2022-12-11] MEDS: ACCU-CHEK COMFORT CURVE STRIP VI SCH ×2 (06:33→12:03)
[2022-12-11 06:42] LABS: Potassium 3.6 mmol/L (3.5-5.1)
[2022-12-11 06:56] LABS: BUN/Creatinine Ratio 29.3; Bilirubin, Total 0.4 mg/dL (0.2-1.0); Calcium 8.3 mg/dL (8.5-10.1); Total Protein 5.8 g/dL (6.4-8.2)
[2022-12-11 08:00] VITALS: BP 120/75
[2022-12-11] MEDS ORDERED: ERGOCALCIFEROL 50,000 UNIT(1.25MG) CAP PO SCH (09:00)
[2022-12-11] MEDS: MORPHINE SULFATE INJ 2 MG/ml SYRG IV PRN (09:08)
[2022-12-11] MEDS: PANTOPRAZOLE 40 MG/10 ML VIAL INJ IV SCH (09:30)
[2022-12-11] MEDS ORDERED: INSULIN LANTUS (GLARGINE) 1 /0.01ml (100units/ml) SC SCH (10:00)
[2022-12-11] MEDS ORDERED: INSU100I47 SC (12:39)
[2022-12-11] MEDS ORDERED: INSLANTI SC (12:39)
[2022-12-11] MEDS ORDERED: ERGO1CAP23 PO (12:39)
[2022-12-11 14:27] VITALS: BP 110/72
[2022-12-11 18:00] LABS: Cholesterol 178 mg/dL (< 200); HDL Cholesterol 126 mg/dL (40-59); LDL Cholesterol 45 mg/dL (< 100); Triglycerides 61 mg/dL (< 150)
== END 2022-12-11 15:30 | disposition home or self-care (01) | DRG 420 ==
LOC: EDBD 02:41 → ER 02:41 → TELE 05:49 → TELE-CENTR 22:28
PROVIDERS: ADMIT Nurse Practitioner; ATTEND Internal Medicine
DX: E10.10 Type 1 diabetes mellitus with ketoacidosis without coma (principal); N17.0 Acute kidney failure with tubular necrosis; Z20.822 Contact with and (suspected) exposure to COVID-19; E86.0 Dehydration; F15.10 Other stimulant abuse, uncomplicated; Z79.4 Long term (current) use of insulin; Z83.3 Family history of diabetes mellitus; Z91.14 Patient's other noncompliance with medication regimen; Z72.0 Tobacco use; Z88.0 Allergy status to penicillin
CPT/HCPCS: 36415; 36600; 71045; 80048; 80053; 80061; 80307; 81001; 82010; 82306; 82805; 82962; 83036; 83690; 83735; 83930; 84100; 84484; 85025; 87426; 93005; 93306; 96361; 96365; 96375; 99291; C9113; G0378; J0696; J1815; J1885; J2405

== ENCOUNTER 2023-01-19 18:29 | Emergency (ER) | payer MEDICAID ==
[~2023-01-19] VITALS: Ht 177.8 cm; Wt 68.0 kg
[~2023-01-19 18:29] MED LIST changes: +ERGO1CAP23 PO; -INSU100I43 SC; +INSU100I47 SC; -LEVO750T8 PO
[2023-01-19 18:54] VITALS: BP 122/69
== END 2023-01-19 20:57 | disposition home or self-care (01) ==
LOC: ER 18:34
DX: L02.512 Cutaneous abscess of left hand (principal); Z53.21 Procedure and treatment not carried out due to patient leaving prior to being seen by health care provider

== ENCOUNTER 2023-01-23 11:42 | Emergency (ER) | payer MEDICAID | END 2023-01-23 13:44 | disposition left against medical advice (07) | LOC: ER 11:42 | DX: M79.602 Pain in left arm (principal); Z53.21 Procedure and treatment not carried out due to patient leaving prior to being seen by health care provider ==

== ENCOUNTER 2023-01-26 19:53 | Inpatient (IN) | payer MEDICAID ==
[~2023-01-26] VITALS: Ht 177.8 cm; Wt 63.3 kg
[2023-01-26 22:25] LABS: Basophils # (auto) 0.1 10 ^3/uL (0-0.2); Basophils % (auto) 0.8 % (0.0-2.0); Eosinophils # (auto) 0 10 ^3/uL (0-0.8); Hematocrit 48.3 % (41.0-53.0); Hemoglobin 15.8 g/dL (13.5-17.5); Lymphocytes % (auto) 7.7 % (10.0-50.0); Mean Corpuscular Hgb Conc. 32.8 g/dL (32.0-36.0); Mean Corpuscular Volume 97.5 fL (80.0-100.0); Monocytes # (auto) 1.1 10 ^3/uL (0-1.3); Monocytes % (auto) 8.6 % (0.0-12.0); Neutrophils # (auto) 10.5 10 ^3/uL (1.6-8.6); Neutrophils % (auto) 82.9 % (37.0-80.0); Nucleated Red Blood Cells % 0.2 %; Red Blood Cells 4.95 10^6/uL (4.5-5.90); Red Cell Distribution Width 13.7 % (11.8-14.3); White Blood Cell 12.7 10^3/uL (4.4-10.8)
[2023-01-26] MEDS ORDERED: SODIUM CHLORIDE 0.9% 1,000 ML IV ONE (22:30)
[2023-01-26 22:46] LABS: Urine Bacteria NONE SEEN /hpf (None Seen); Urine Blood Negative /uL (Negative); Urine Mucus FEW (None Seen); Urine Specific Gravity 1.021 (1.001-1.035); Urine WBC <1 /hpf (0 - 3)
[2023-01-26 22:51] LABS: Albumin 3.9 g/dL (3.4-5.0); Calcium 8.1 mg/dL (8.5-10.1)
[2023-01-26 22:53] LABS: BUN/Creatinine Ratio 26.5
[2023-01-26 22:55] LABS: Bilirubin, Total 0.5 mg/dL (0.2-1.0)
[2023-01-26 23:09] LABS: Alcohol, Urine < 3.0 mg/dL (0-10); Amphetamine Screen, Urine POSITIVE (NEGATIVE); Barbiturate Scree,Urine NEGATIVE (NEGATIVE); Benzodiazephine Screen, Urine NEGATIVE (NEGATIVE); Cannabinoid Screen, Urine NEGATIVE (NEGATIVE); Cocaine Screen, Urine NEGATIVE (NEGATIVE); Opiate Scree,Urine NEGATIVE (NEGATIVE); Phencyclidine Screen, Urine NEGATIVE (NEGATIVE)
[2023-01-26] MEDS ORDERED: INSULIN LANTUS (GLARGINE) 1 /0.01ml (100units/ml) SC ONE (23:15)
[2023-01-26] MEDS ORDERED: InsuLIN R (HUMAN) 100 UNITS in SODIUM CHL 0.9% 99 ML IV SCH (23:15)
[2023-01-26] MEDS ORDERED: DEXTROSE (50%) 50ML SYRG IV PRN (23:15)
[2023-01-26] MEDS: SODIUM CHLORIDE 0.9% 1,000 ML IV SCH (23:29)
[2023-01-26] MEDS ORDERED: SODIUM BICARBONATE 8.4 % INJ 50ML VIAL IV ONE (23:30)
[2023-01-26 23:31] LABS: Magnesium 2.3 mg/dL (1.6-2.6); Phosphorus 5.2 mg/dL (2.5-4.90)
[2023-01-26] MEDS ORDERED: InsuLIN REG 1unit/0.01ml Soln (100units/ml) ONE (23:34)
[2023-01-27] MEDS ORDERED: NITROGLYCERIN 0.4 MG SL TAB SL PRN (00:15)
[2023-01-27] MEDS ORDERED: ONDANSETRON HCL 4 MG/2 ML VIAL IV PRN (00:15)
[2023-01-27] MEDS ORDERED: MORPHINE SULFATE INJ 2 MG/ml SYRG IV PRN (00:15)
[2023-01-27] MEDS: SODIUM CHLORIDE 0.9% 1,000 ML IV SCH ×4 (00:29→12:42)
[2023-01-27] MEDS ORDERED: ACCU-CHEK COMFORT CURVE STRIP VI SCH ×2 (01:00)
[2023-01-27] MEDS: InsuLIN R (HUMAN) 100 UNITS in SODIUM CHL 0.9% 99 ML IV SCH (01:18)
[2023-01-27 02:27] LABS: Albumin 3.4 g/dL (3.4-5.0); BUN/Creatinine Ratio 24.5; Calcium 7.4 mg/dL (8.5-10.1); Potassium 4.2 mmol/L (3.5-5.1)
[2023-01-27] MEDS: ACCU-CHEK COMFORT CURVE STRIP VI SCH ×7 (02:35→10:33)
[2023-01-27 02:36] LABS: Bilirubin, Total 0.4 mg/dL (0.2-1.0)
[2023-01-27] MEDS ORDERED: SODIUM CHLORIDE 0.9% 1,000 ML IV SCH (03:15)
[2023-01-27 06:34] LABS: Basophils # (auto) 0 10 ^3/uL (0-0.2); Basophils % (auto) 0.5 % (0.0-2.0); Eosinophils # (auto) 0 10 ^3/uL (0-0.8); Hematocrit 39.8 % (41.0-53.0); Hemoglobin 13.7 g/dL (13.5-17.5); Lymphocytes # (auto) 1.9 10 ^3/uL (0.4-5.4); Mean Corpuscular Hemoglobin 31.8 pg (28.0-32.0); Mean Corpuscular Hgb Conc. 34.4 g/dL (32.0-36.0); Mean Corpuscular Volume 92.3 fL (80.0-100.0); Monocytes # (auto) 1.3 10 ^3/uL (0-1.3); Monocytes % (auto) 16.4 % (0.0-12.0); Neutrophils # (auto) 4.6 10 ^3/uL (1.6-8.6); Neutrophils % (auto) 59.1 % (37.0-80.0); Nucleated Red Blood Cells % 0.5 %; Red Blood Cells 4.31 10^6/uL (4.5-5.90); Red Cell Distribution Width 14.1 % (11.8-14.3); White Blood Cell 7.8 10^3/uL (4.4-10.8)
[2023-01-27 06:48] LABS: Calcium 7.4 mg/dL (8.5-10.1)
[2023-01-27] MEDS: PANTOPRAZOLE 40 MG/10 ML VIAL INJ IV SCH (10:19)
[2023-01-27] MEDS: INSULIN LANTUS (GLARGINE) 1 /0.01ml (100units/ml) SC SCH (10:27)
[2023-01-27] MEDS: InsuLIN REG 1unit/0.01ml Soln (100units/ml) SC SCH ×3 (11:30→22:08)
[2023-01-27 12:11] LABS: Calcium 7.8 mg/dL (8.5-10.1); Potassium 3.7 mmol/L (3.5-5.1)
[2023-01-27 12:13] LABS: BUN/Creatinine Ratio 22.8
[2023-01-27] MEDS: LACTATED RINGER'S 1,000 ML IV SCH ×2 (13:15→22:54)
[2023-01-27] MEDS: THIAMINE 100mg/ml INJ (200mg/2ml VIAL) IV SCH (13:26)
[2023-01-27] MEDS: MULTIPLE VITAMIN TAB PO SCH (13:26)
[2023-01-27] MEDS ORDERED: InsuLIN REG 1unit/0.01ml Soln (100units/ml) SC ONE (17:15)
[2023-01-27 18:08] LABS: BUN/Creatinine Ratio 20.6; Potassium 4.5 mmol/L (3.5-5.1)
[2023-01-27 22:10] VITALS: BP 119/70
[2023-01-27 22:26] VITALS: BP 119/70
[2023-01-28 05:07] VITALS: BP 106/64
[2023-01-28] MEDS: InsuLIN REG 1unit/0.01ml Soln (100units/ml) SC SCH ×4 (06:17→22:15)
[2023-01-28 06:20] LABS: Basophils # (auto) 0 10 ^3/uL (0-0.2); Basophils % (auto) 0.3 % (0.0-2.0); Eosinophils # (auto) 0 10 ^3/uL (0-0.8); Hematocrit 38.8 % (41.0-53.0); Hemoglobin 13.6 g/dL (13.5-17.5); Lymphocytes # (auto) 1.5 10 ^3/uL (0.4-5.4); Lymphocytes % (auto) 35.3 % (10.0-50.0); Mean Corpuscular Hemoglobin 31.9 pg (28.0-32.0); Mean Corpuscular Hgb Conc. 35.1 g/dL (32.0-36.0); Mean Corpuscular Volume 91.1 fL (80.0-100.0); Monocytes # (auto) 0.5 10 ^3/uL (0-1.3); Monocytes % (auto) 13.1 % (0.0-12.0); Neutrophils # (auto) 2.1 10 ^3/uL (1.6-8.6); Neutrophils % (auto) 50.3 % (37.0-80.0); Nucleated Red Blood Cells % 0.1 %; Red Blood Cells 4.26 10^6/uL (4.5-5.90); Red Cell Distribution Width 13.8 % (11.8-14.3); White Blood Cell 4.2 10^3/uL (4.4-10.8)
[2023-01-28 06:45] LABS: Potassium 3.4 mmol/L (3.5-5.1)
[2023-01-28 06:53] LABS: Albumin 2.6 g/dL (3.4-5.0); BUN/Creatinine Ratio 30.9; Bilirubin, Total 0.4 mg/dL (0.2-1.0); Calcium 7.8 mg/dL (8.5-10.1); Total Protein 5.4 g/dL (6.4-8.2)
[2023-01-28 09:00] VITALS: BP 108/53
[2023-01-28] MEDS: MULTIPLE VITAMIN TAB PO SCH (09:49)
[2023-01-28] MEDS: THIAMINE 100mg/ml INJ (200mg/2ml VIAL) IV SCH (09:49)
[2023-01-28] MEDS: PANTOPRAZOLE 40 MG/10 ML VIAL INJ IV SCH (09:49)
[2023-01-28] MEDS: INSULIN LANTUS (GLARGINE) 1 /0.01ml (100units/ml) SC SCH (09:53)
[2023-01-28] MEDS ORDERED: POTASSIUM EFFERVESENT TAB 25 MEQ PO ONE (11:45)
[2023-01-28] MEDS ORDERED: MORPHINE SULFATE INJ 2 MG/ml SYRG IV PRN (12:45)
[2023-01-28] MEDS ORDERED: LORazepam 2MG/ML-1ML VIAL IV PRN (12:45)
[2023-01-28] MEDS ORDERED: ONDANSETRON HCL 4 MG/2 ML VIAL IV PRN (12:45)
[2023-01-28] MEDS ORDERED: ACETAMINOPHEN 500 MG TAB PO PRN (12:45)
[2023-01-28] MEDS ORDERED: DOCUSATE SOD 100 MG CAP PO PRN (12:45)
[2023-01-28 13:00] VITALS: BP 117/73
[2023-01-28] MEDS: LACTATED RINGER'S 1,000 ML IV SCH ×2 (13:05→19:00)
[2023-01-28] MEDS: HYDROcodone-ACET 5/325MG TAB PO PRN ×2 (13:06→20:37)
[2023-01-28 17:00] VITALS: BP 117/70
[2023-01-28] MEDS: CEFTRIAXONE SODIUM 2 GM in D5W 5% 100 ML IV SCH (18:01)
[2023-01-28] MEDS ORDERED: LIDOCAINE 1% HCL (LOCAL ANESTH.) INJ 20ML MDV IJ ONE (19:45)
[2023-01-28] MEDS ORDERED: LIDOCAINE 2%HCL (LOCAL ANESTH.) INJ 10ml MDV IJ ONE (19:45)
[2023-01-28 20:00] VITALS: BP 118/75
[2023-01-28 22:00] VITALS: BP 118/75
[2023-01-29 05:00] VITALS: BP 97/60
[2023-01-29] MEDS: LACTATED RINGER'S 1,000 ML IV SCH (05:23)
[2023-01-29 05:29] LABS: Basophils # (auto) 0 10 ^3/uL (0-0.2); Basophils % (auto) 0.3 % (0.0-2.0); Eosinophils # (auto) 0 10 ^3/uL (0-0.8); Eosinophils % (auto) 0.9 % (0.0-7.0); Hematocrit 40.3 % (41.0-53.0); Hemoglobin 14.3 g/dL (13.5-17.5); Lymphocytes # (auto) 2.3 10 ^3/uL (0.4-5.4); Lymphocytes % (auto) 45.2 % (10.0-50.0); Mean Corpuscular Hemoglobin 32.1 pg (28.0-32.0); Mean Corpuscular Hgb Conc. 35.6 g/dL (32.0-36.0); Mean Corpuscular Volume 90.2 fL (80.0-100.0); Monocytes # (auto) 0.9 10 ^3/uL (0-1.3); Monocytes % (auto) 17.1 % (0.0-12.0); Neutrophils # (auto) 1.8 10 ^3/uL (1.6-8.6); Neutrophils % (auto) 36.5 % (37.0-80.0); Nucleated Red Blood Cells % 0.1 %; Red Blood Cells 4.47 10^6/uL (4.5-5.90); Red Cell Distribution Width 13.6 % (11.8-14.3)
[2023-01-29 05:46] LABS: Calcium 8.4 mg/dL (8.5-10.1); Potassium 3.4 mmol/L (3.5-5.1)
[2023-01-29 05:49] LABS: BUN/Creatinine Ratio 28.6
[2023-01-29] MEDS: InsuLIN REG 1unit/0.01ml Soln (100units/ml) SC SCH ×2 (06:17→12:42)
[2023-01-29 08:58] VITALS: BP 113/76
[2023-01-29] MEDS: PANTOPRAZOLE 40 MG/10 ML VIAL INJ IV SCH (09:41)
[2023-01-29] MEDS: THIAMINE 100mg/ml INJ (200mg/2ml VIAL) IV SCH (09:41)
[2023-01-29] MEDS: CEFTRIAXONE SODIUM 2 GM in D5W 5% 100 ML IV SCH (09:42)
[2023-01-29] MEDS ORDERED: POTASSIUM CHL 20 Meq TABLET PO ONE (09:45)
[2023-01-29] MEDS: INSULIN LANTUS (GLARGINE) 1 /0.01ml (100units/ml) SC SCH (09:45)
[2023-01-29] MEDS: HYDROcodone-ACET 5/325MG TAB PO PRN (09:50)
[2023-01-29] MEDS: MULTIPLE VITAMIN TAB PO SCH (09:51)
[2023-01-29] MEDS ORDERED: HYDR-4902 PO (10:34)
[2023-01-29] MEDS ORDERED: INSU-567 XX (10:34)
[2023-01-29] MEDS ORDERED: INSLANTI SC (10:34)
[2023-01-29] MEDS ORDERED: CEPH-510 PO (10:34)
[2023-01-29 11:51] LABS: Hepatitis C Antibody Negative (Negative)
[2023-01-29 12:50] VITALS: BP 112/76
== END 2023-01-29 14:38 | disposition home or self-care (01) | DRG 420 ==
LOC: EDBD 19:53 → ER 19:57 → TELE 01-27 00:08 → TELE-CENTR 01-27 20:43 → CENTRAL 01-28 02:34
PROVIDERS: ADMIT Nurse Practitioner; ATTEND Nurse Practitioner Acute Care
DX: E10.10 Type 1 diabetes mellitus with ketoacidosis without coma (principal); G92.8 Other toxic encephalopathy; N17.9 Acute kidney failure, unspecified; E86.1 Hypovolemia; E87.5 Hyperkalemia; F15.10 Other stimulant abuse, uncomplicated; F32.A Depression, unspecified; F41.9 Anxiety disorder, unspecified; Z20.822 Contact with and (suspected) exposure to COVID-19; S50.02XA Contusion of left elbow, initial encounter; X58.XXXA Exposure to other specified factors, initial encounter; Z88.0 Allergy status to penicillin; Z83.3 Family history of diabetes mellitus; Z91.14 Patient's other noncompliance with medication regimen; Y93.89 Activity, other specified; Y92.89 Other specified places as the place of occurrence of the external cause; Y99.8 Other external cause status; S52.022K Displaced fracture of olecranon process without intraarticular extension of left ulna, subsequent encounter for closed fracture with nonunion
CPT/HCPCS: 36415; 36600; 70450; 73080; 73200; 80048; 80053; 80307; 81001; 82010; 82805; 82962; 83735; 83930; 84100; 85025; 85652; 86703; 86803; 87205; 87340; 87426; 96361; 96365; 96366; 96372; 96375; 99291; C9113; G0378; J0696; J1815; J2001; J7060

== ENCOUNTER 2023-03-09 19:55 | Inpatient (IN) | payer MEDICAID ==
[~2023-03-09] VITALS: Ht 175.3 cm; Wt 60.0 kg
[~2023-03-09 19:55] MED LIST changes: +CEPH-510 PO; +INSU-567 XX
[2023-03-09] MEDS ORDERED: SODIUM CHLORIDE 0.9% 1,000 ML IV ONE (20:15)
[2023-03-09] MEDS ORDERED: D5W/SOD CHL 0.45%/KCL 20MEQ 1,000 ML IV SCH (20:45)
[2023-03-09] MEDS ORDERED: InsuLIN R (HUMAN) 100 UNITS in SODIUM CHL 0.9% 99 ML IV SCH (20:45)
[2023-03-09] MEDS ORDERED: DEXTROSE (50%) 50ML SYRG IV PRN ×2 (20:45→22:15)
[2023-03-09 21:18] LABS: Hemoglobin 16.7 g/dL (13.5-17.5); Mean Corpuscular Hemoglobin 32.6 pg (28.0-32.0); Mean Corpuscular Hgb Conc. 32.7 g/dL (32.0-36.0); Mean Corpuscular Volume 99.6 fL (80.0-100.0); Red Blood Cells 5.12 10^6/uL (4.5-5.90); Red Cell Distribution Width 13.9 % (11.8-14.3); White Blood Cell 10.2 10^3/uL (4.4-10.8)
[2023-03-09 21:27] LABS: Basophils % (manual) 0 (0.0-2.0); Blast Cells 0; Metamyelocytes % 0; Myelocytes % 0; Promyelocytes % 0
[2023-03-09 21:34] LABS: Albumin 3.6 g/dL (3.4-5.0); Potassium 4.9 mmol/L (3.5-5.1)
[2023-03-09 21:36] LABS: BUN/Creatinine Ratio 19.8 (10.0-20.0); Magnesium 2.2 mg/dL (1.6-2.6)
[2023-03-09 21:39] LABS: Bilirubin, Total 0.3 mg/dL (0.2-1.0); Phosphorus 4.5 mg/dL (2.5-4.90); Total Protein 7.1 g/dL (6.4-8.2)
[2023-03-09 21:45] LABS: Lactic Acid w/Reflex 2.2 mmol/L (0.4-2.0)
[2023-03-09] MEDS: SODIUM CHLORIDE 0.9% 1,000 ML IV SCH ×2 (22:11→22:48)
[2023-03-09] MEDS ORDERED: ONDANSETRON HCL 4 MG/2 ML VIAL IV PRN (22:15)
[2023-03-09] MEDS ORDERED: INSULIN LANTUS (GLARGINE) 1 /0.01ml (100units/ml) SC ONE (22:15)
[2023-03-09] MEDS ORDERED: MORPHINE SULFATE INJ 2 MG/ml SYRG IV PRN (22:15)
[2023-03-09] MEDS ORDERED: NITROGLYCERIN 0.4 MG SL TAB SL PRN (22:15)
[2023-03-09] MEDS ORDERED: SODIUM BICARBONATE 8.4 % INJ 50ML VIAL IV ONE (22:15)
[2023-03-09 22:18] LABS: Band Neutrophils % (manual) 3; Eosinophils % (manual) 1 (0-7); Lymphocytes % (manual) 10 (10.0-50.0); Monocytes % (manual) 7 (0-12)
[2023-03-09 22:19] LABS: Reactive Lymphocytes 1
[2023-03-09] MEDS ORDERED: InsuLIN REG 1unit/0.01ml Soln (100units/ml) ONE (22:24)
[2023-03-09] MEDS: ACCU-CHEK COMFORT CURVE STRIP VI SCH ×2 (22:30→23:58)
[2023-03-10] VITALS (29 sets, daily range): BP systolic 98–133; BP diastolic 55–83
[2023-03-10] MEDS ORDERED: InsuLIN R (HUMAN) 100 UNITS in SODIUM CHL 0.9% 99 ML IV SCH ×2
[2023-03-10] MEDS ORDERED: SODIUM BICARBONATE 50ML VIAL 100 ML in SOD CHL 0.45% 1,000 ML IV ONE (01:00)
[2023-03-10] MEDS ORDERED: SODIUM BICARBONATE 8.4 % INJ 50ML VIAL IV ONE (01:17)
[2023-03-10] MEDS: ACCU-CHEK COMFORT CURVE STRIP VI SCH ×9 (01:40→23:57)
[2023-03-10 02:09] LABS: Urine WBC None Seen /hpf (0 - 3)
[2023-03-10 02:38] LABS: Urine Bacteria FEW /hpf (None Seen); Urine Blood TRACE /uL (Negative); Urine Specific Gravity 1.019 (1.001-1.035)
[2023-03-10 03:52] LABS: Hematocrit 42.3 % (41.0-53.0); Hemoglobin 14.5 g/dL (13.5-17.5); Mean Corpuscular Hemoglobin 32.9 pg (28.0-32.0); Mean Corpuscular Hgb Conc. 34.2 g/dL (32.0-36.0); Mean Corpuscular Volume 96.1 fL (80.0-100.0); Red Cell Distribution Width 14.2 % (11.8-14.3); White Blood Cell 8.1 10^3/uL (4.4-10.8)
[2023-03-10 04:03] LABS: Basophils % (manual) 0 (0.0-2.0); Blast Cells 0; Eosinophils % (manual) 0 (0-7); Myelocytes % 0; Promyelocytes % 0; Reactive Lymphocytes 0
[2023-03-10 04:12] LABS: Potassium 4.3 mmol/L (3.5-5.1)
[2023-03-10] MEDS ORDERED: SODIUM CHLORIDE 0.9% 1,000 ML IV SCH (04:15)
[2023-03-10 04:17] LABS: Albumin 2.9 g/dL (3.4-5.0); BUN/Creatinine Ratio 21.6 (10.0-20.0); Calcium 7.4 mg/dL (8.5-10.1)
[2023-03-10 04:20] LABS: Bilirubin, Total 0.4 mg/dL (0.2-1.0); Total Protein 5.8 g/dL (6.4-8.2)
[2023-03-10 07:57] LABS: Band Neutrophils % (manual) 3; Lymphocytes % (manual) 36 (10.0-50.0); Metamyelocytes % 2; Monocytes % (manual) 14 (0-12)
[2023-03-10 09:19] LABS: BUN/Creatinine Ratio 21.6 (10.0-20.0); Calcium 7.8 mg/dL (8.5-10.1)
[2023-03-10 09:27] LABS: Potassium 4.1 mmol/L (3.5-5.1)
[2023-03-10] MEDS ORDERED: INSULIN LANTUS (GLARGINE) 1 /0.01ml (100units/ml) SC SCH ×2 (10:00→22:00)
[2023-03-10] MEDS: PANTOPRAZOLE 40 MG/10 ML VIAL INJ IV SCH (10:00)
[2023-03-10] MEDS ORDERED: DEXTROSE (50%) 50ML SYRG IV PRN (15:30)
[2023-03-10] MEDS: D5W/SOD CHL 0.45% 1,000 ML IV SCH (16:00)
[2023-03-10] MEDS: InsuLIN REG 1unit/0.01ml Soln (100units/ml) SC SCH ×2 (18:00→23:56)
[2023-03-10] MEDS: MUPIROCIN 2% OINT 15gm or 22gm FOR MRSA NARES EACHNOSTRI SCH (21:43)
[2023-03-11] VITALS (12 sets, daily range): BP systolic 92–111; BP diastolic 54–75
[2023-03-11] MEDS: ACCU-CHEK COMFORT CURVE STRIP VI SCH ×2 (05:58→11:34)
[2023-03-11] MEDS: InsuLIN REG 1unit/0.01ml Soln (100units/ml) SC SCH ×2 (05:59→11:23)
[2023-03-11] MEDS: D5W/SOD CHL 0.45% 1,000 ML IV SCH (08:44)
[2023-03-11] MEDS: PANTOPRAZOLE 40 MG/10 ML VIAL INJ IV SCH (08:44)
[2023-03-11] MEDS: MUPIROCIN 2% OINT 15gm or 22gm FOR MRSA NARES EACHNOSTRI SCH (11:16)
== END 2023-03-11 14:10 | disposition left against medical advice (07) | DRG 420 ==
LOC: EDBD 19:55 → ER 19:55 → TELE 22:11 → ICU WEST 23:33
PROVIDERS: ADMIT Nurse Practitioner; ATTEND Internal Medicine
DX: E11.10 Type 2 diabetes mellitus with ketoacidosis without coma (principal); N17.9 Acute kidney failure, unspecified; Z53.29 Procedure and treatment not carried out because of patient's decision for other reasons; E11.649 Type 2 diabetes mellitus with hypoglycemia without coma; F10.10 Alcohol abuse, uncomplicated; Z88.0 Allergy status to penicillin
CPT/HCPCS: 36415; 36600; 80048; 80053; 81001; 82010; 82805; 82962; 83605; 83735; 83930; 84100; 85007; 85027; 87040; 87081; C9113; G0378; J1815; J2405

== ENCOUNTER 2023-04-17 11:52 | Inpatient (IN) | payer MEDICAID ==
[~2023-04-17] VITALS: Ht 175.3 cm; Wt 62.3 kg
[2023-04-17 12:53] LABS: Basophils # (auto) 0 10 ^3/uL (0-0.2); Basophils % (auto) 0.2 % (0.0-2.0); Eosinophils # (auto) 0 10 ^3/uL (0-0.8); Hematocrit 52.4 % (41.0-53.0); Lymphocytes # (auto) 1.2 10 ^3/uL (0.4-5.4); Lymphocytes % (auto) 10.3 % (10.0-50.0); Mean Corpuscular Hemoglobin 32.7 pg (28.0-32.0); Mean Corpuscular Hgb Conc. 32.5 g/dL (32.0-36.0); Mean Corpuscular Volume 100.8 fL (80.0-100.0); Monocytes # (auto) 1.1 10 ^3/uL (0-1.3); Monocytes % (auto) 9.1 % (0.0-12.0); Neutrophils # (auto) 9.7 10 ^3/uL (1.6-8.6); Neutrophils % (auto) 80.4 % (37.0-80.0); Nucleated Red Blood Cells % 0.2 %; Red Cell Distribution Width 14.1 % (11.8-14.3)
[2023-04-17] MEDS ORDERED: SODIUM CHLORIDE 0.9% 2,000 ML IV ONE (13:00)
[2023-04-17 13:14] LABS: Lactic Acid w/Reflex 3.7 mmol/L (0.4-2.0)
[2023-04-17 13:25] LABS: Anion Gap 29 (5-15); BUN/Creatinine Ratio 17.1 (10.0-20.0); Blood Urea Nitrogen 22 mg/dL (7-18); Carbon Dioxide 10 mmol/L (21-32); Chloride 94 mmol/L (98-107); GFR African American 85 mL/min; GFR Non-African American 70 mL/min; Glucose 388 mg/dL (74-106); Potassium 5.2 mmol/L (3.5-5.1); Sodium 133 mmol/L (136-145)
[2023-04-17 13:26] LABS: Alanine Aminotransferase 69 U/L (16-61); Albumin 3.9 g/dL (3.4-5.0); Alkaline Phosphatase 183 U/L (45-117); Aspartate Aminotransferase 41 U/L (15-37); Bilirubin, Total 0.4 mg/dL (0.2-1.0); Calcium 7.8 mg/dL (8.5-10.1); Total Protein 7.3 g/dL (6.4-8.2)
[2023-04-17] MEDS ORDERED: InsuLIN R (HUMAN) 100 UNITS in SODIUM CHL 0.9% 99 ML IV SCH ×2 (14:00→17:30)
[2023-04-17 14:44] LABS: Urine Bacteria NONE SEEN /hpf (None Seen); Urine Blood Negative /uL (Negative); Urine Specific Gravity 1.018 (1.001-1.035); Urine WBC <1 /hpf (0 - 3)
[2023-04-17] MEDS ORDERED: D5W/SOD CHL 0.45%/KCL 40MEQ 1,000 ML IV ONE (16:30)
[2023-04-17] MEDS ORDERED: SODIUM CHLORIDE 0.9% 1,000 ML IV ONE (16:30)
[2023-04-17 17:25] LABS: BUN/Creatinine Ratio 18.6 (10.0-20.0); Calcium 7.1 mg/dL (8.5-10.1); Potassium 5.4 mmol/L (3.5-5.1)
[2023-04-17] MEDS ORDERED: DEXTROSE (50%) 50ML SYRG IV PRN (17:30)
[2023-04-17] MEDS ORDERED: DOCUSATE SOD 100 MG CAP PO PRN (17:30)
[2023-04-17] MEDS ORDERED: ONDANSETRON HCL 4 MG/2 ML VIAL IV PRN (17:30)
[2023-04-17] MEDS ORDERED: LORazepam 2MG/ML-1ML VIAL IV PRN (17:30)
[2023-04-17] MEDS ORDERED: SODIUM BICARBONATE 50ML VIAL 100 ML in SOD CHL 0.45% 1,000 ML IV ONE (17:45)
[2023-04-17] MEDS: ACCU-CHEK COMFORT CURVE STRIP VI SCH ×6 (18:07→23:14)
[2023-04-17 19:21] LABS: Blood Alcohol < 3.0 mg/dL (0-5); Magnesium 1.8 mg/dL (1.6-2.6); Phosphorus 2.6 mg/dL (2.5-4.90)
[2023-04-17 19:25] LABS: BUN/Creatinine Ratio 17.4 (10.0-20.0); Calcium 6.8 mg/dL (8.5-10.1); Potassium 4.6 mmol/L (3.5-5.1)
[2023-04-17 21:19] LABS: Lactic Acid w/Reflex 2.7 mmol/L (0.4-2.0)
[2023-04-17] MEDS: metroNIDAZOLE 500MG/100ML 100 ML IV SCH (22:00)
[2023-04-17] MEDS: CIPROFLOXACIN 400MG/200ML 200 ML IV SCH (22:03)
[2023-04-17] MEDS: SODIUM CHLOR 0.9% PF (SALINE LOCK) 10ML VIAL/SYR IV SCH (22:03)
[2023-04-17 23:56] LABS: Calcium 7.2 mg/dL (8.5-10.1); Potassium 4.3 mmol/L (3.5-5.1)
[2023-04-17 23:58] LABS: BUN/Creatinine Ratio 21.4 (10.0-20.0)
[2023-04-18] VITALS (13 sets, daily range): BP systolic 89–130; BP diastolic 46–75
[2023-04-18] MEDS: ACCU-CHEK COMFORT CURVE STRIP VI SCH ×7 (00:17→23:11)
[2023-04-18] MEDS: InsuLIN REG 1unit/0.01ml Soln (100units/ml) SC SCH ×6 (04:00→23:11)
[2023-04-18 05:28] LABS: Basophils # (auto) 0 10 ^3/uL (0-0.2); Basophils % (auto) 0.3 % (0.0-2.0); Eosinophils # (auto) 0 10 ^3/uL (0-0.8); Eosinophils % (auto) 0.6 % (0.0-7.0); Hematocrit 40.9 % (41.0-53.0); Hemoglobin 14.2 g/dL (13.5-17.5); Lymphocytes # (auto) 1.5 10 ^3/uL (0.4-5.4); Lymphocytes % (auto) 26.7 % (10.0-50.0); Mean Corpuscular Hemoglobin 32.8 pg (28.0-32.0); Mean Corpuscular Hgb Conc. 34.9 g/dL (32.0-36.0); Monocytes # (auto) 0.9 10 ^3/uL (0-1.3); Monocytes % (auto) 16.4 % (0.0-12.0); Neutrophils # (auto) 3.1 10 ^3/uL (1.6-8.6); Nucleated Red Blood Cells % 0.1 %; Red Blood Cells 4.34 10^6/uL (4.5-5.90); Red Cell Distribution Width 13.6 % (11.8-14.3); White Blood Cell 5.5 10^3/uL (4.4-10.8)
[2023-04-18 05:47] LABS: Potassium 4.3 mmol/L (3.5-5.1)
[2023-04-18 05:57] LABS: Albumin 2.7 g/dL (3.4-5.0); Bilirubin, Total 0.4 mg/dL (0.2-1.0); Calcium 7.7 mg/dL (8.5-10.1); Total Protein 4.9 g/dL (6.4-8.2)
[2023-04-18] MEDS: SODIUM CHLOR 0.9% PF (SALINE LOCK) 10ML VIAL/SYR IV SCH ×3 (06:00→22:01)
[2023-04-18] MEDS: metroNIDAZOLE 500MG/100ML 100 ML IV SCH ×3 (08:00→22:01)
[2023-04-18] MEDS: PANTOPRAZOLE 40 MG/10 ML VIAL INJ IV SCH (08:00)
[2023-04-18] MEDS: CIPROFLOXACIN 400MG/200ML 200 ML IV SCH ×2 (08:01→20:10)
[2023-04-18 10:36] LABS: BUN/Creatinine Ratio 21.3 (10.0-20.0); Calcium 7.3 mg/dL (8.5-10.1); Potassium 4.3 mmol/L (3.5-5.1)
[2023-04-18] MEDS: MORPHINE SULFATE INJ 2 MG/ml SYRG IV PRN (19:39)
[2023-04-18] MEDS: MUPIROCIN 2% OINT 15gm or 22gm FOR MRSA NARES EACHNOSTRI SCH (22:03)
[2023-04-18] MEDS: INSULIN LANTUS (GLARGINE) 1 /0.01ml (100units/ml) SC SCH (22:13)
[2023-04-19] MEDS: InsuLIN REG 1unit/0.01ml Soln (100units/ml) SC SCH ×3 (04:00→12:15)
[2023-04-19] MEDS: ACCU-CHEK COMFORT CURVE STRIP VI SCH ×3 (04:02→12:14)
[2023-04-19] MEDS: MORPHINE SULFATE INJ 2 MG/ml SYRG IV PRN ×2 (04:07→08:52)
[2023-04-19 05:00] VITALS: BP 111/62
[2023-04-19] MEDS: metroNIDAZOLE 500MG/100ML 100 ML IV SCH (06:11)
[2023-04-19] MEDS: SODIUM CHLOR 0.9% PF (SALINE LOCK) 10ML VIAL/SYR IV SCH (06:11)
[2023-04-19] MEDS: INSULIN LANTUS (GLARGINE) 1 /0.01ml (100units/ml) SC SCH (06:19)
[2023-04-19 08:10] VITALS: BP 120/71
[2023-04-19] MEDS: CIPROFLOXACIN 400MG/200ML 200 ML IV SCH (08:43)
[2023-04-19 09:00] VITALS: BP 120/71
[2023-04-19] MEDS: PANTOPRAZOLE 40 MG/10 ML VIAL INJ IV SCH (10:13)
[2023-04-19] MEDS: MUPIROCIN 2% OINT 15gm or 22gm FOR MRSA NARES EACHNOSTRI SCH (10:14)
[2023-04-19 13:00] VITALS: BP 112/77
== END 2023-04-19 14:12 | disposition left against medical advice (07) | DRG 420 ==
LOC: EDBD 11:52 → ER 11:52 → TELE 17:17 → DOU IN ICU 23:58 → EAST 04-18 01:15 → TELE-EAST 04-18 17:25 → EAST 04-18 17:54
PROVIDERS: ADMIT Nurse Practitioner Family; ATTEND Internal Medicine
DX: E10.10 Type 1 diabetes mellitus with ketoacidosis without coma (principal); D72.829 Elevated white blood cell count, unspecified; E86.0 Dehydration; E87.5 Hyperkalemia; R74.01 Elevation of levels of liver transaminase levels; F10.10 Alcohol abuse, uncomplicated; F17.200 Nicotine dependence, unspecified, uncomplicated; R82.4 Acetonuria; Z91.148 Patient's other noncompliance with medication regimen for other reason; Z88.0 Allergy status to penicillin; Z79.4 Long term (current) use of insulin
CPT/HCPCS: 36415; 36600; 71045; 74176; 80048; 80053; 80320; 81001; 82010; 82805; 82962; 83605; 83735; 83930; 84100; 85025; 87040; 87077; 87081; 87186; 96361; 96365; 96367; C9113; G0378; J1815; J3490

== ENCOUNTER 2023-04-21 18:05 | Emergency (ER) | payer MEDICAID ==
[~2023-04-21] VITALS: Ht 177.8 cm; Wt 61.9 kg
[2023-04-21 18:18] VITALS: BP 121/73
[2023-04-21 19:11] LABS: Urine Bacteria FEW /hpf (None Seen); Urine Blood Negative /uL (Negative); Urine Mucus FEW (None Seen); Urine Specific Gravity 1.029 (1.001-1.035); Urine WBC <1 /hpf (0 - 3)
[2023-04-21 19:39] LABS: Basophils # (auto) 0 10 ^3/uL (0-0.2); Basophils % (auto) 1.3 % (0.0-2.0); Eosinophils # (auto) 0 10 ^3/uL (0-0.8); Eosinophils % (auto) 1.1 % (0.0-7.0); Hematocrit 41.4 % (41.0-53.0); Hemoglobin 14.3 g/dL (13.5-17.5); Lymphocytes # (auto) 1.6 10 ^3/uL (0.4-5.4); Lymphocytes % (auto) 43.6 % (10.0-50.0); Mean Corpuscular Hemoglobin 32.9 pg (28.0-32.0); Mean Corpuscular Hgb Conc. 34.6 g/dL (32.0-36.0); Mean Corpuscular Volume 95.2 fL (80.0-100.0); Monocytes # (auto) 0.5 10 ^3/uL (0-1.3); Monocytes % (auto) 14.9 % (0.0-12.0); Neutrophils # (auto) 1.4 10 ^3/uL (1.6-8.6); Neutrophils % (auto) 39.1 % (37.0-80.0); Nucleated Red Blood Cells % 0.2 %; Red Blood Cells 4.34 10^6/uL (4.5-5.90); Red Cell Distribution Width 13.3 % (11.8-14.3); White Blood Cell 3.6 10^3/uL (4.4-10.8)
[2023-04-21 20:15] LABS: Albumin 3.1 g/dL (3.4-5.0); BUN/Creatinine Ratio 22.1 (10.0-20.0); Potassium 4.8 mmol/L (3.5-5.1)
[2023-04-21 20:18] LABS: Bilirubin, Total 0.3 mg/dL (0.2-1.0); Total Protein 5.9 g/dL (6.4-8.2)
== END 2023-04-21 21:39 | disposition left against medical advice (07) ==
LOC: ER 18:12
DX: R10.12 Left upper quadrant pain (principal); Z53.21 Procedure and treatment not carried out due to patient leaving prior to being seen by health care provider
CPT/HCPCS: 36415; 80053; 81001; 83690; 85025

== ENCOUNTER 2023-04-22 13:27 | Emergency (ER) | payer MEDICAID ==
[~2023-04-22] VITALS: Ht 177.8 cm; Wt 69.0 kg
[2023-04-22 13:31] VITALS: BP 138/84
[2023-04-22] MEDS ORDERED: SODIUM CHLORIDE 0.9% 1,000 ML IV ONE (13:45)
[2023-04-22] MEDS ORDERED: THIAMINE HCL 100 MG TAB PO ONE (13:45)
== END 2023-04-22 13:57 | disposition left against medical advice (07) ==
LOC: EDBD 13:27 → ER 13:27
DX: E11.65 Type 2 diabetes mellitus with hyperglycemia (principal); F17.210 Nicotine dependence, cigarettes, uncomplicated; F15.10 Other stimulant abuse, uncomplicated; Z88.0 Allergy status to penicillin
CPT/HCPCS: 93005

== ENCOUNTER 2023-04-24 11:28 | Inpatient (IN) | payer MEDICAID ==
[~2023-04-24] VITALS: Ht 170.2 cm; Wt 57.7 kg
[2023-04-24] MEDS ORDERED: ONDANSETRON HCL 4 MG/2 ML VIAL IV ONE (12:00)
[2023-04-24] MEDS ORDERED: SODIUM CHLORIDE 0.9% 1,000 ML IV ONE (12:00)
[2023-04-24 12:58] LABS: Hemoglobin 15.9 g/dL (13.5-17.5); Mean Corpuscular Hemoglobin 32.7 pg (28.0-32.0)
[2023-04-24 13:00] LABS: Hematocrit 52.3 % (41.0-53.0); Mean Corpuscular Hgb Conc. 30.4 g/dL (32.0-36.0); Mean Corpuscular Volume 107.6 fL (80.0-100.0); Red Blood Cells 4.86 10^6/uL (4.5-5.90); Red Cell Distribution Width 14.7 % (11.8-14.3); White Blood Cell 13.4 10^3/uL (4.4-10.8)
[2023-04-24 13:06] LABS: Basophils % (manual) 0 (0.0-2.0); Blast Cells 0; Eosinophils % (manual) 0 (0-7); Metamyelocytes % 0; Myelocytes % 0; Promyelocytes % 0; Reactive Lymphocytes 0
[2023-04-24 13:53] LABS: Albumin 3.7 g/dL (3.4-5.0); BUN/Creatinine Ratio 16.5 (10.0-20.0); Bilirubin, Total 0.5 mg/dL (0.2-1.0); Calcium 8.2 mg/dL (8.5-10.1)
[2023-04-24 13:54] LABS: Band Neutrophils % (manual) 6; Lymphocytes % (manual) 9 (10.0-50.0); Monocytes % (manual) 14 (0-12)
[2023-04-24] MEDS ORDERED: HYDROmorphone HCL 2 MG/ML VL/or syr IV ONE (14:15)
[2023-04-24] MEDS ORDERED: DEXTROSE (50%) 50ML SYRG IV PRN ×3 (14:30→15:30)
[2023-04-24] MEDS ORDERED: InsuLIN R (HUMAN) 100 UNITS in SODIUM CHL 0.9% 99 ML IV SCH ×4 (15:00)
[2023-04-24] MEDS ORDERED: SODIUM CHLORIDE 0.9% 1,000 ML IV SCH ×4 (15:00→21:00)
[2023-04-24] MEDS ORDERED: MAGNESIUM SULFATE 1GM/100ML 200 ML IV ONE (15:00)
[2023-04-24] MEDS ORDERED: INSULIN LANTUS (GLARGINE) 1 /0.01ml (100units/ml) SC ONE (15:00)
[2023-04-24] MEDS ORDERED: ACCU-CHEK COMFORT CURVE STRIP VI SCH (15:00)
[2023-04-24] MEDS: InsuLIN R (HUMAN) 100 UNITS in SODIUM CHL 0.9% 99 ML IV SCH ×3 (15:19→18:55)
[2023-04-24] MEDS: SODIUM CHLORIDE 0.9% 1,000 ML IV SCH ×4 (15:23→21:30)
[2023-04-24] MEDS: ACCU-CHEK COMFORT CURVE STRIP VI SCH ×6 (15:23→22:50)
[2023-04-24] MEDS ORDERED: DOCUSATE SOD 100 MG CAP PO PRN (15:30)
[2023-04-24] MEDS ORDERED: ONDANSETRON HCL 4 MG/2 ML VIAL IV PRN (15:30)
[2023-04-24 15:40] LABS: Urine WBC None Seen /hpf (0 - 3)
[2023-04-24 15:57] LABS: Urine Bacteria NONE SEEN /hpf (None Seen); Urine Blood Negative /uL (Negative); Urine Mucus FEW (None Seen); Urine Specific Gravity 1.022 (1.001-1.035)
[2023-04-24] MEDS ORDERED: SODIUM BICARBONATE 8.4 % INJ 50ML VIAL IV ONE ×3 (16:00→16:15)
[2023-04-24] MEDS ORDERED: SODIUM BICARBONATE IV ONE (16:30)
[2023-04-24] MEDS ORDERED: SODIUM CHL IV ONE (16:30)
[2023-04-24] MEDS: SODIUM BICARBONATE 8.4 % INJ 50ML VIAL IV ONE ×2 (17:07→17:12)
[2023-04-24 18:58] LABS: BUN/Creatinine Ratio 20.2 (10.0-20.0); Calcium 7.5 mg/dL (8.5-10.1); Magnesium 2.8 mg/dL (1.6-2.6); Phosphorus 2.8 mg/dL (2.5-4.90); Potassium 4.3 mmol/L (3.5-5.1)
[2023-04-24 19:01] LABS: Hematocrit 46.1 % (41.0-53.0); Hemoglobin 15.4 g/dL (13.5-17.5); Mean Corpuscular Hgb Conc. 33.3 g/dL (32.0-36.0); Mean Corpuscular Volume 99.1 fL (80.0-100.0); Red Blood Cells 4.65 10^6/uL (4.5-5.90); Red Cell Distribution Width 13.9 % (11.8-14.3); White Blood Cell 10.5 10^3/uL (4.4-10.8)
[2023-04-24 19:10] LABS: Band Neutrophils % (manual) 0; Basophils % (manual) 0 (0.0-2.0); Blast Cells 0; Eosinophils % (manual) 0 (0-7); Metamyelocytes % 0; Myelocytes % 0; Promyelocytes % 0; Reactive Lymphocytes 0
[2023-04-24 19:45] LABS: Lymphocytes % (manual) 20 (10.0-50.0); Monocytes % (manual) 5 (0-12)
[2023-04-24 20:56] LABS: BUN/Creatinine Ratio 17.5 (10.0-20.0); Calcium 7.7 mg/dL (8.5-10.1); Potassium 3.9 mmol/L (3.5-5.1)
[2023-04-24 21:26] LABS: Alcohol, Urine < 3.0 mg/dL (0-10); Amphetamine Screen, Urine NEGATIVE (NEGATIVE); Barbiturate Scree,Urine NEGATIVE (NEGATIVE); Benzodiazephine Screen, Urine NEGATIVE (NEGATIVE); Cannabinoid Screen, Urine NEGATIVE (NEGATIVE); Cocaine Screen, Urine NEGATIVE (NEGATIVE); Opiate Scree,Urine NEGATIVE (NEGATIVE); Phencyclidine Screen, Urine NEGATIVE (NEGATIVE)
[2023-04-24 21:35] LABS: Creatinine, Urine 12.7 mg/dL (30.0-125.0)
[2023-04-24] MEDS: metroNIDAZOLE 500MG/100ML 100 ML IV SCH (22:24)
[2023-04-24] MEDS: CIPROFLOXACIN 400MG/200ML 200 ML IV SCH (22:24)
[2023-04-24] MEDS: ONDANSETRON HCL 4 MG/2 ML VIAL IV PRN (22:32)
[2023-04-24] MEDS: MORPHINE SULFATE INJ 2 MG/ml SYRG IV PRN (22:51)
[2023-04-25] MEDS: ACCU-CHEK COMFORT CURVE STRIP VI SCH ×8 (00:05→21:00)
[2023-04-25] MEDS: SODIUM CHLORIDE 0.9% 1,000 ML IV SCH ×2 (00:05→04:10)
[2023-04-25 00:47] LABS: Albumin 2.8 g/dL (3.4-5.0); BUN/Creatinine Ratio 22.5 (10.0-20.0); Calcium 7.6 mg/dL (8.5-10.1); Potassium 3.7 mmol/L (3.5-5.1)
[2023-04-25 00:49] LABS: Bilirubin, Total 0.3 mg/dL (0.2-1.0); Total Protein 5.5 g/dL (6.4-8.2)
[2023-04-25] MEDS ORDERED: DEXTROSE 10% 250 ML IV ONE ×2 (01:52→02:00)
[2023-04-25] MEDS ORDERED: DEXTROSE 10% 250 ML IV PRN (03:15)
[2023-04-25] MEDS: ONDANSETRON HCL 4 MG/2 ML VIAL IV PRN (03:58)
[2023-04-25] MEDS: MORPHINE SULFATE INJ 2 MG/ml SYRG IV PRN (04:00)
[2023-04-25] MEDS: InsuLIN REG 1unit/0.01ml Soln (100units/ml) SC SCH ×5 (04:00→20:59)
[2023-04-25 05:23] LABS: Hematocrit 38.1 % (41.0-53.0); Hemoglobin 13.6 g/dL (13.5-17.5); Mean Corpuscular Hgb Conc. 35.7 g/dL (32.0-36.0); Mean Corpuscular Volume 92.5 fL (80.0-100.0); Red Blood Cells 4.12 10^6/uL (4.5-5.90); Red Cell Distribution Width 13.4 % (11.8-14.3); White Blood Cell 5.7 10^3/uL (4.4-10.8)
[2023-04-25 05:40] LABS: Potassium 3.4 mmol/L (3.5-5.1)
[2023-04-25 05:50] LABS: Albumin 2.8 g/dL (3.4-5.0); BUN/Creatinine Ratio 26.2 (10.0-20.0); Bilirubin, Total 0.2 mg/dL (0.2-1.0); Calcium 7.3 mg/dL (8.5-10.1); Total Protein 5.1 g/dL (6.4-8.2)
[2023-04-25 06:02] LABS: Band Neutrophils % (manual) 0; Basophils % (manual) 0 (0.0-2.0); Blast Cells 0; Metamyelocytes % 0; Myelocytes % 0; Promyelocytes % 0; Reactive Lymphocytes 0
[2023-04-25] MEDS: metroNIDAZOLE 500MG/100ML 100 ML IV SCH ×3 (06:26→23:15)
[2023-04-25] MEDS ORDERED: ACCU-CHEK COMFORT CURVE STRIP VI SCH (07:30)
[2023-04-25] MEDS ORDERED: InsuLIN REG 1unit/0.01ml Soln (100units/ml) SC SCH (08:00)
[2023-04-25] MEDS ORDERED: LEVOTHYROXINE SODIUM 50 MCG TAB ONE (08:04)
[2023-04-25] MEDS ORDERED: LEVOTHYROXINE SODIUM 25 MCG TAB ONE (08:04)
[2023-04-25] MEDS: PANTOPRAZOLE 40 MG/10 ML VIAL INJ IV SCH (08:11)
[2023-04-25] MEDS: CIPROFLOXACIN 400MG/200ML 200 ML IV SCH ×3 (08:13→23:22)
[2023-04-25] MEDS ORDERED: MORPHINE SULFATE INJ 2 MG/ml SYRG IV PRN (08:30)
[2023-04-25 08:39] LABS: Eosinophils % (manual) 1 (0-7); Lymphocytes % (manual) 16 (10.0-50.0); Monocytes % (manual) 16 (0-12)
[2023-04-25] MEDS ORDERED: DEXTROSE (50%) 50ML SYRG IV PRN (08:45)
[2023-04-25 09:56] LABS: BUN/Creatinine Ratio 23.2 (10.0-20.0); Calcium 7.7 mg/dL (8.5-10.1)
[2023-04-25] MEDS ORDERED: INSULIN LANTUS (GLARGINE) 1 /0.01ml (100units/ml) SC SCH (10:00)
[2023-04-25] MEDS: HYDROcodone-ACET 5/325MG TAB PO PRN ×2 (11:20→16:51)
[2023-04-25 20:00] VITALS: BP 117/60
[2023-04-25] MEDS: LORazepam 2MG/ML-1ML VIAL IV PRN (21:16)
[2023-04-25 22:00] VITALS: BP 116/65
[2023-04-26] MEDS: InsuLIN REG 1unit/0.01ml Soln (100units/ml) SC SCH ×7 (02:06→23:51)
[2023-04-26] MEDS: ACCU-CHEK COMFORT CURVE STRIP VI SCH ×7 (02:10→23:49)
[2023-04-26 05:00] VITALS: BP 117/60
[2023-04-26] MEDS: metroNIDAZOLE 500MG/100ML 100 ML IV SCH ×3 (06:16→21:30)
[2023-04-26] MEDS: HYDROcodone-ACET 5/325MG TAB PO PRN ×3 (06:27→20:25)
[2023-04-26] MEDS: PANTOPRAZOLE 40 MG/10 ML VIAL INJ IV SCH (08:22)
[2023-04-26 09:00] VITALS: BP 116/60
[2023-04-26] MEDS: INSULIN LANTUS (GLARGINE) 1 /0.01ml (100units/ml) SC SCH (10:48)
[2023-04-26 13:44] VITALS: BP 116/69
[2023-04-26] MEDS: CIPROFLOXACIN 400MG/200ML 200 ML IV SCH (20:26)
[2023-04-26] MEDS: LORazepam 2MG/ML-1ML VIAL IV PRN (21:29)
[2023-04-26 22:00] VITALS: BP 114/72
[2023-04-27] MEDS: ACCU-CHEK COMFORT CURVE STRIP VI SCH ×4 (03:53→17:39)
[2023-04-27] MEDS: InsuLIN REG 1unit/0.01ml Soln (100units/ml) SC SCH ×4 (03:56→17:38)
[2023-04-27 05:00] VITALS: BP 109/63
[2023-04-27] MEDS: metroNIDAZOLE 500MG/100ML 100 ML IV SCH ×2 (05:14→14:52)
[2023-04-27] MEDS: CIPROFLOXACIN 400MG/200ML 200 ML IV SCH (07:47)
[2023-04-27] MEDS: PANTOPRAZOLE 40 MG/10 ML VIAL INJ IV SCH (07:47)
[2023-04-27] MEDS: HYDROcodone-ACET 5/325MG TAB PO PRN ×2 (07:56→13:57)
[2023-04-27] MEDS: INSULIN LANTUS (GLARGINE) 1 /0.01ml (100units/ml) SC SCH (08:05)
[2023-04-27 08:29] VITALS: BP 105/66
[2023-04-27] MEDS ORDERED: INSULIN LANTUS (GLARGINE) 1 /0.01ml (100units/ml) SC SCH (10:45)
[2023-04-27] MEDS ORDERED: INSULIN LANTUS (GLARGINE) 1 /0.01ml (100units/ml) SC ONE (11:45)
[2023-04-27 12:30] VITALS: BP 106/65
[2023-04-27 12:55] LABS: Hepatitis C Antibody Negative (Negative)
[2023-04-27 16:39] VITALS: BP 113/70
== END 2023-04-27 18:30 | disposition left against medical advice (07) | DRG 420 ==
LOC: EDBD 11:28 → ER 11:28 → EDUNIT# 11:28 → OVERFLOW 15:25 → TELE-WESTW 04-25 18:04 → UNDODISIN 04-27 19:05
PROVIDERS: ADMIT Nurse Practitioner Family; ATTEND Internal Medicine
PROC: 05H933Z Insertion of Infusion Device into Right Brachial Vein, Percutaneous Approach (ICD-10-PCS; principal; 2023-04-24)
PROC: B54MZZA Ultrasonography of Right Upper Extremity Veins, Guidance (ICD-10-PCS; 2023-04-24)
DX: E10.10 Type 1 diabetes mellitus with ketoacidosis without coma (principal); K85.90 Acute pancreatitis without necrosis or infection, unspecified; N17.9 Acute kidney failure, unspecified; E86.0 Dehydration; E87.5 Hyperkalemia; F10.10 Alcohol abuse, uncomplicated; F15.10 Other stimulant abuse, uncomplicated; F41.9 Anxiety disorder, unspecified; F32.A Depression, unspecified; Z53.29 Procedure and treatment not carried out because of patient's decision for other reasons; F17.210 Nicotine dependence, cigarettes, uncomplicated; Z59.00 Homelessness unspecified; Z79.4 Long term (current) use of insulin; Z88.0 Allergy status to penicillin; Z71.6 Tobacco abuse counseling
CPT/HCPCS: 36415; 36600; 71045; 80048; 80053; 80307; 81001; 82010; 82570; 82805; 82962; 83615; 83690; 83735; 83930; 84100; 84300; 85007; 85027; 86803; 87340; 96365; 96372; 96375; C9113; G0378; J1815; J2405; J3490

== ENCOUNTER 2023-04-29 14:28 | Inpatient (IN) | payer MEDICAID ==
[~2023-04-29] VITALS: Ht 177.8 cm; Wt 61.0 kg
[~2023-04-29 14:28] MED LIST changes: -CEPH-510 PO; -ERGO1CAP23 PO; -INSU-567 XX; -INSU100I47 SC
[2023-04-29] MEDS ORDERED: SODIUM CHLORIDE 0.9% 1,000 ML IV ONE ×3 (14:45)
[2023-04-29 15:13] LABS: Basophils # (auto) 0.1 10 ^3/uL (0-0.2); Basophils % (auto) 0.6 % (0.0-2.0); Eosinophils # (auto) 0 10 ^3/uL (0-0.8); Eosinophils % (auto) 0.4 % (0.0-7.0); Hematocrit 39.3 % (41.0-53.0); Hemoglobin 13.3 g/dL (13.5-17.5); Lymphocytes # (auto) 1.7 10 ^3/uL (0.4-5.4); Mean Corpuscular Hemoglobin 32.4 pg (28.0-32.0); Mean Corpuscular Volume 95.4 fL (80.0-100.0); Monocytes # (auto) 0.9 10 ^3/uL (0-1.3); Monocytes % (auto) 10.3 % (0.0-12.0); Neutrophils # (auto) 6.3 10 ^3/uL (1.6-8.6); Neutrophils % (auto) 69.7 % (37.0-80.0); Nucleated Red Blood Cells % 0.1 %; Red Blood Cells 4.12 10^6/uL (4.5-5.90); Red Cell Distribution Width 13.2 % (11.8-14.3); White Blood Cell 9.1 10^3/uL (4.4-10.8)
[2023-04-29 15:30] LABS: Albumin 3.5 g/dL (3.4-5.0); Calcium 8.1 mg/dL (8.5-10.1); Potassium 4.5 mmol/L (3.5-5.1)
[2023-04-29 15:33] LABS: Lactic Acid w/Reflex 3.6 mmol/L (0.4-2.0)
[2023-04-29 15:39] LABS: BUN/Creatinine Ratio 17.6 (10.0-20.0); Bilirubin, Total 0.4 mg/dL (0.2-1.0); Total Protein 6.9 g/dL (6.4-8.2)
[2023-04-29] MEDS ORDERED: levoFLOXacin 500MG 100 ML IV ONE (16:00)
[2023-04-29] MEDS ORDERED: InsuLIN REG 1unit/0.01ml Soln (100units/ml) IV ONE (16:00)
[2023-04-29] MEDS ORDERED: CLINDAMYCIN 600MG IV 50 ML IV ONE (16:00)
[2023-04-29] MEDS ORDERED: INSULIN LANTUS (GLARGINE) 1 /0.01ml (100units/ml) SC ONE (16:30)
[2023-04-29] MEDS ORDERED: DEXTROSE (50%) 50ML SYRG IV PRN (16:30)
[2023-04-29 16:40] LABS: INR 0.89 (0.9-1.15); Partial Thromboplastin Time 29.9 sec (24.6-33.4)
[2023-04-29 16:54] LABS: Calcium 8.4 mg/dL (8.5-10.1); Potassium 4.5 mmol/L (3.5-5.1)
[2023-04-29 16:58] LABS: Magnesium 2.4 mg/dL (1.6-2.6); Phosphorus 4.8 mg/dL (2.5-4.90)
[2023-04-29 17:03] LABS: BUN/Creatinine Ratio 17.4 (10.0-20.0)
[2023-04-29] MEDS: ACCU-CHEK COMFORT CURVE STRIP VI SCH ×2 (19:30→22:57)
[2023-04-29] MEDS ORDERED: SODIUM CHLORIDE 0.9% 1,000 ML IV SCH (20:30)
[2023-04-29] MEDS ORDERED: NITROGLYCERIN 0.4 MG SL TAB SL PRN (20:45)
[2023-04-29] MEDS ORDERED: ACETAMINOPHEN 325 MG TAB PO PRN (20:45)
[2023-04-29] MEDS ORDERED: MORPHINE SULFATE INJ 2 MG/ml SYRG IV PRN (20:45)
[2023-04-29] MEDS: SODIUM CHLORIDE 0.9% 1,000 ML IV SCH ×2 (21:36→21:45)
[2023-04-29 22:18] LABS: Calcium 8.3 mg/dL (8.5-10.1); Potassium 5.2 mmol/L (3.5-5.1)
[2023-04-29 22:27] LABS: BUN/Creatinine Ratio 13.9 (10.0-20.0)
[2023-04-29] MEDS: CLINDAMYCIN 600MG IV 50 ML IV SCH (22:42)
[2023-04-29] MEDS ORDERED: VANCOMYCIN PER PHARMACY 0 MG IV SCH (22:45)
[2023-04-29] MEDS ORDERED: VANCOMYCIN 1GM/250ML 250 ML IV ONE (23:30)
[2023-04-29 23:48] LABS: Urine Bacteria NONE SEEN /hpf (None Seen); Urine Blood Negative /uL (Negative); Urine Specific Gravity 1.026 (1.001-1.035); Urine WBC 1 /hpf (0 - 3)
[2023-04-30] MEDS: SODIUM CHLORIDE 0.9% 1,000 ML IV SCH ×5 (00:06→23:17)
[2023-04-30 00:09] LABS: Alcohol, Urine < 3.0 mg/dL (0-10); Amphetamine Screen, Urine NEGATIVE (NEGATIVE); Barbiturate Scree,Urine NEGATIVE (NEGATIVE); Benzodiazephine Screen, Urine NEGATIVE (NEGATIVE); Cannabinoid Screen, Urine NEGATIVE (NEGATIVE); Cocaine Screen, Urine NEGATIVE (NEGATIVE); Opiate Scree,Urine NEGATIVE (NEGATIVE); Phencyclidine Screen, Urine NEGATIVE (NEGATIVE)
[2023-04-30] MEDS: ACCU-CHEK COMFORT CURVE STRIP VI SCH ×12 (00:11→23:31)
[2023-04-30] MEDS: InsuLIN R (HUMAN) 100 UNITS in SODIUM CHL 0.9% 99 ML IV SCH ×2 (00:25→16:40)
[2023-04-30] MEDS: CLINDAMYCIN 600MG IV 50 ML IV SCH ×3 (06:00→22:00)
[2023-04-30 06:34] LABS: Basophils # (auto) 0.1 10 ^3/uL (0-0.2); Basophils % (auto) 1.1 % (0.0-2.0); Eosinophils # (auto) 0 10 ^3/uL (0-0.8); Eosinophils % (auto) 0.6 % (0.0-7.0); Hematocrit 33.5 % (41.0-53.0); Lymphocytes # (auto) 1.5 10 ^3/uL (0.4-5.4); Lymphocytes % (auto) 22.1 % (10.0-50.0); Mean Corpuscular Hemoglobin 33.2 pg (28.0-32.0); Mean Corpuscular Hgb Conc. 35.9 g/dL (32.0-36.0); Mean Corpuscular Volume 92.5 fL (80.0-100.0); Monocytes # (auto) 1.1 10 ^3/uL (0-1.3); Monocytes % (auto) 15.3 % (0.0-12.0); Neutrophils # (auto) 4.2 10 ^3/uL (1.6-8.6); Neutrophils % (auto) 60.9 % (37.0-80.0); Potassium 3.7 mmol/L (3.5-5.1); Red Blood Cells 3.62 10^6/uL (4.5-5.90); Red Cell Distribution Width 13.5 % (11.8-14.3); White Blood Cell 6.9 10^3/uL (4.4-10.8)
[2023-04-30 06:39] LABS: Albumin 2.8 g/dL (3.4-5.0); BUN/Creatinine Ratio 27.8 (10.0-20.0); Bilirubin, Total 0.2 mg/dL (0.2-1.0); Total Protein 5.7 g/dL (6.4-8.2)
[2023-04-30] MEDS ORDERED: DEXTROSE (50%) 50ML SYRG IV PRN (10:45)
[2023-04-30 10:51] LABS: BUN/Creatinine Ratio 47.4 (10.0-20.0); Calcium 7.8 mg/dL (8.5-10.1); Potassium 3.4 mmol/L (3.5-5.1)
[2023-04-30] MEDS: INSULIN LANTUS (GLARGINE) 1 /0.01ml (100units/ml) SC SCH (11:20)
[2023-04-30] MEDS: HYDROcodone-ACET 5/325MG TAB PO PRN ×3 (11:21→23:36)
[2023-04-30] MEDS: InsuLIN REG 1unit/0.01ml Soln (100units/ml) SC SCH ×3 (12:39→23:34)
[2023-04-30] MEDS: VANCOMYCIN 1GM/250ML 250 ML IV SCH ×2 (12:42→23:17)
[2023-04-30 21:16] VITALS: BP 124/73
[2023-05-01] MEDS ORDERED: INSLANTI SC (01:46)
[2023-05-01 05:00] VITALS: BP 123/65
[2023-05-01] MEDS: CLINDAMYCIN 600MG IV 50 ML IV SCH (05:34)
[2023-05-01] MEDS: ACCU-CHEK COMFORT CURVE STRIP VI SCH ×4 (06:23→22:13)
[2023-05-01] MEDS: HYDROcodone-ACET 5/325MG TAB PO PRN ×2 (06:24→23:04)
[2023-05-01] MEDS: InsuLIN REG 1unit/0.01ml Soln (100units/ml) SC SCH ×4 (06:26→22:24)
[2023-05-01] MEDS: SODIUM CHLORIDE 0.9% 1,000 ML IV SCH ×3 (07:50→22:32)
[2023-05-01 09:00] VITALS: BP 118/69
[2023-05-01] MEDS ORDERED: diphenhdrAMINE HCL 50 MG/1 ML VL IV PRN (10:30)
[2023-05-01] MEDS: VANCOMYCIN 1GM/250ML 250 ML IV SCH (10:42)
[2023-05-01] MEDS: INSULIN LANTUS (GLARGINE) 1 /0.01ml (100units/ml) SC SCH (10:43)
[2023-05-01 13:00] VITALS: BP 109/61
[2023-05-01] MEDS: DOXYCYCLINE 100MG/250ML 250 ML IV SCH (15:39)
[2023-05-01 17:00] VITALS: BP 100/61
[2023-05-01 22:00] VITALS: BP 116/73
[2023-05-02] MEDS: DOXYCYCLINE 100MG/250ML 250 ML IV SCH ×2 (04:49→13:43)
[2023-05-02 05:00] VITALS: BP 109/71
[2023-05-02] MEDS: SODIUM CHLORIDE 0.9% 1,000 ML IV SCH (06:18)
[2023-05-02] MEDS: ACCU-CHEK COMFORT CURVE STRIP VI SCH ×4 (06:20→22:26)
[2023-05-02] MEDS: InsuLIN REG 1unit/0.01ml Soln (100units/ml) SC SCH ×5 (06:27→22:33)
[2023-05-02 06:29] LABS: Hemoglobin 13.2 g/dL (13.5-17.5); Mean Corpuscular Hemoglobin 32.9 pg (28.0-32.0); Mean Corpuscular Hgb Conc. 34.8 g/dL (32.0-36.0); Mean Corpuscular Volume 94.4 fL (80.0-100.0); Red Blood Cells 4.02 10^6/uL (4.5-5.90); Red Cell Distribution Width 13.6 % (11.8-14.3); White Blood Cell 4.3 10^3/uL (4.4-10.8)
[2023-05-02 06:44] LABS: BUN/Creatinine Ratio 31.9 (10.0-20.0); Potassium 3.9 mmol/L (3.5-5.1)
[2023-05-02 06:50] LABS: Basophils % (manual) 0 (0.0-2.0); Blast Cells 0; Eosinophils % (manual) 0 (0-7); Metamyelocytes % 0; Myelocytes % 0; Promyelocytes % 0; Reactive Lymphocytes 0
[2023-05-02 09:00] VITALS: BP 109/75
[2023-05-02 10:58] LABS: Band Neutrophils % (manual) 4; Lymphocytes % (manual) 34 (10.0-50.0); Monocytes % (manual) 21 (0-12)
[2023-05-02] MEDS: MORPHINE SULFATE INJ 2 MG/ml SYRG IV PRN ×3 (11:07→22:37)
[2023-05-02] MEDS: INSULIN LANTUS (GLARGINE) 1 /0.01ml (100units/ml) SC SCH ×2 (11:23→22:35)
[2023-05-02 12:00] VITALS: BP 117/67
[2023-05-02 14:00] VITALS: BP 115/61
[2023-05-02 17:00] VITALS: BP 115/61
[2023-05-02] MEDS ORDERED: DEXTROSE (50%) 50ML SYRG IV PRN (18:00)
[2023-05-02] MEDS ORDERED: InsuLIN REG 1unit/0.01ml Soln (100units/ml) SC ONE (18:45)
[2023-05-02 22:00] VITALS: BP 115/72
[2023-05-03] MEDS: DOXYCYCLINE 100MG/250ML 250 ML IV SCH ×2 (02:01→13:30)
[2023-05-03 05:00] VITALS: BP 114/67
[2023-05-03] MEDS: MORPHINE SULFATE INJ 2 MG/ml SYRG IV PRN ×3 (05:12→19:57)
[2023-05-03] MEDS: ACCU-CHEK COMFORT CURVE STRIP VI SCH ×4 (06:21→22:28)
[2023-05-03] MEDS: InsuLIN REG 1unit/0.01ml Soln (100units/ml) SC SCH ×4 (06:28→22:33)
[2023-05-03 07:14] LABS: Hematocrit 35.6 % (41.0-53.0); Hemoglobin 12.7 g/dL (13.5-17.5); Mean Corpuscular Hemoglobin 33.7 pg (28.0-32.0); Mean Corpuscular Hgb Conc. 35.7 g/dL (32.0-36.0); Mean Corpuscular Volume 94.3 fL (80.0-100.0); Red Blood Cells 3.78 10^6/uL (4.5-5.90); White Blood Cell 3.8 10^3/uL (4.4-10.8)
[2023-05-03 07:19] LABS: Basophils % (manual) 0 (0.0-2.0); Blast Cells 0; Eosinophils % (manual) 0 (0-7); Metamyelocytes % 0; Myelocytes % 0; Promyelocytes % 0; Reactive Lymphocytes 0
[2023-05-03 07:35] LABS: Potassium 4.1 mmol/L (3.5-5.1)
[2023-05-03 07:43] LABS: BUN/Creatinine Ratio 33.3 (10.0-20.0)
[2023-05-03 09:00] VITALS: BP 106/65
[2023-05-03] MEDS: INSULIN LANTUS (GLARGINE) 1 /0.01ml (100units/ml) SC SCH ×2 (09:26→22:33)
[2023-05-03 11:24] LABS: Band Neutrophils % (manual) 4; Lymphocytes % (manual) 28 (10.0-50.0); Monocytes % (manual) 24 (0-12)
[2023-05-03 12:00] VITALS: BP 110/69
[2023-05-03 17:00] VITALS: BP 110/65
[2023-05-03 22:00] VITALS: BP 116/67
[2023-05-04] MEDS: DOXYCYCLINE 100MG/250ML 250 ML IV SCH (01:46)
[2023-05-04] MEDS: MORPHINE SULFATE INJ 2 MG/ml SYRG IV PRN ×2 (02:02→10:02)
[2023-05-04 05:00] VITALS: BP 125/79
[2023-05-04] MEDS: ACCU-CHEK COMFORT CURVE STRIP VI SCH ×2 (06:22→12:17)
[2023-05-04] MEDS: InsuLIN REG 1unit/0.01ml Soln (100units/ml) SC SCH ×2 (06:26→12:20)
[2023-05-04 06:37] LABS: Hematocrit 37.4 % (41.0-53.0); Mean Corpuscular Hemoglobin 32.5 pg (28.0-32.0); Mean Corpuscular Hgb Conc. 34.8 g/dL (32.0-36.0); Mean Corpuscular Volume 93.4 fL (80.0-100.0); Red Cell Distribution Width 13.4 % (11.8-14.3); White Blood Cell 5.7 10^3/uL (4.4-10.8)
[2023-05-04 06:40] LABS: BUN/Creatinine Ratio 30.6 (10.0-20.0); Calcium 8.5 mg/dL (8.5-10.1); Potassium 4.1 mmol/L (3.5-5.1)
[2023-05-04 07:07] LABS: Basophils % (manual) 0 (0.0-2.0); Blast Cells 0; Eosinophils % (manual) 0 (0-7); Metamyelocytes % 0; Myelocytes % 0; Promyelocytes % 0; Reactive Lymphocytes 0
[2023-05-04 08:00] VITALS: BP 96/51
[2023-05-04 08:55] LABS: Band Neutrophils % (manual) 2; Lymphocytes % (manual) 30 (10.0-50.0); Monocytes % (manual) 23 (0-12)
[2023-05-04] MEDS: INSULIN LANTUS (GLARGINE) 1 /0.01ml (100units/ml) SC SCH (09:47)
[2023-05-04] MEDS ORDERED: INSLANTI SC (10:05)
[2023-05-04] MEDS ORDERED: DOXY-448 PO (10:05)
[2023-05-04 12:00] VITALS: BP 118/73
[2023-05-04 15:00] VITALS: BP 118/73
== END 2023-05-04 15:30 | disposition home or self-care (01) | DRG 420 ==
LOC: ER 14:28 → TELE 20:39 → CENTRAL 04-30 21:20
PROVIDERS: ADMIT Nurse Practitioner Family; ATTEND Internal Medicine Pulmonary Disease
DX: E10.10 Type 1 diabetes mellitus with ketoacidosis without coma (principal); L03.114 Cellulitis of left upper limb; E87.1 Hypo-osmolality and hyponatremia; F17.210 Nicotine dependence, cigarettes, uncomplicated; F32.A Depression, unspecified; F41.9 Anxiety disorder, unspecified; Z88.0 Allergy status to penicillin
CPT/HCPCS: 36415; 36600; 71045; 73200; 80048; 80053; 80202; 80307; 81001; 82010; 82805; 82962; 83605; 83735; 83930; 84100; 85007; 85025; 85027; 85379; 85610; 85730; 87040; 87081; 93971; 96361; 96365; 99291; G0378; J1815; J1956; J3490

== ENCOUNTER 2023-05-15 12:33 | Emergency (ER) | payer MEDICAID ==
[~2023-05-15] VITALS: Ht 172.7 cm; Wt 63.6 kg
[~2023-05-15 12:33] MED LIST changes: +DOXY-448 PO
[2023-05-15 12:35] VITALS: BP 139/97
[2023-05-15] MEDS ORDERED: SODIUM CHLORIDE 0.9% 1,000 ML IV ONE (13:15)
[2023-05-16] MEDS ORDERED: InsuLIN REG 1unit/0.01ml Soln (100units/ml) ONE (02:05)
[2023-05-16] MEDS ORDERED: INSUINJ37 SC (18:49)
== END 2023-05-17 09:52 | disposition home or self-care (01) ==
LOC: ER 12:33 → EDBD 12:33 → ER 05-17 09:52
DX: E11.65 Type 2 diabetes mellitus with hyperglycemia (principal); R53.1 Weakness; F17.210 Nicotine dependence, cigarettes, uncomplicated; F15.10 Other stimulant abuse, uncomplicated; F41.9 Anxiety disorder, unspecified; F32.9 Major depressive disorder, single episode, unspecified; Z88.0 Allergy status to penicillin
CPT/HCPCS: 99283; J1815

== ENCOUNTER 2023-05-15 21:09 | Inpatient (IN) | payer MEDICAID ==
[~2023-05-15] VITALS: Ht 175.3 cm; Wt 65.0 kg
[2023-05-16 00:03] LABS: Basophils # (auto) 0.1 10 ^3/uL (0-0.2); Basophils % (auto) 0.5 % (0.0-2.0); Eosinophils # (auto) 0 10 ^3/uL (0-0.8); Hematocrit 47.3 % (41.0-53.0); Hemoglobin 15.2 g/dL (13.5-17.5); Lymphocytes # (auto) 1.2 10 ^3/uL (0.4-5.4); Lymphocytes % (auto) 9.7 % (10.0-50.0); Mean Corpuscular Hemoglobin 32.1 pg (28.0-32.0); Mean Corpuscular Hgb Conc. 32.2 g/dL (32.0-36.0); Mean Corpuscular Volume 99.7 fL (80.0-100.0); Monocytes # (auto) 1.2 10 ^3/uL (0-1.3); Monocytes % (auto) 9.9 % (0.0-12.0); Neutrophils % (auto) 79.9 % (37.0-80.0); Nucleated Red Blood Cells % 0.1 %; Red Blood Cells 4.75 10^6/uL (4.5-5.90); Red Cell Distribution Width 14.2 % (11.8-14.3); White Blood Cell 12.6 10^3/uL (4.4-10.8)
[2023-05-16 00:34] LABS: Anion Gap 37 (5-15); BUN/Creatinine Ratio 21.4 (10.0-20.0); Blood Urea Nitrogen 24 mg/dL (7-18); Chloride 92 mmol/L (98-107); GFR African American 100 mL/min; GFR Non-African American 82 mL/min; Potassium 5.3 mmol/L (3.5-5.1); Sodium 136 mmol/L (136-145)
[2023-05-16 00:35] LABS: Alanine Aminotransferase 55 U/L (16-61); Alkaline Phosphatase 228 U/L (45-117); Aspartate Aminotransferase 38 U/L (15-37); Bilirubin, Total 0.6 mg/dL (0.2-1.0); Calcium 8.8 mg/dL (8.5-10.1); Total Protein 7.7 g/dL (6.4-8.2)
[2023-05-16 00:36] LABS: Carbon Dioxide 7 mmol/L (21-32)
[2023-05-16 00:43] LABS: Glucose 601 mg/dL (74-106)
[2023-05-16] MEDS ORDERED: SODIUM CHLORIDE 0.9% 1,950 ML IV ONE (00:45)
[2023-05-16] MEDS ORDERED: InsuLIN R (HUMAN) 100 UNITS in SODIUM CHL 0.9% 99 ML IV SCH (00:45)
[2023-05-16] MEDS ORDERED: ONDANSETRON HCL 4 MG/2 ML VIAL IV ONE ×2 (00:45→02:45)
[2023-05-16] MEDS: SODIUM CHLORIDE 0.9% 1,000 ML IV SCH ×8 (00:45→20:32)
[2023-05-16] MEDS ORDERED: DEXTROSE (50%) 50ML SYRG IV PRN ×2 (00:45→22:30)
[2023-05-16 01:18] LABS: Lipase 200 U/L (73-393); Magnesium 2.5 mg/dL (1.6-2.6)
[2023-05-16 01:21] LABS: Blood Alcohol < 3.0 mg/dL (0-5); Phosphorus 5.8 mg/dL (2.5-4.90)
[2023-05-16] MEDS: ACCU-CHEK COMFORT CURVE STRIP VI SCH ×14 (02:01→21:21)
[2023-05-16] MEDS ORDERED: NITROGLYCERIN 0.4 MG SL TAB SL PRN (03:45)
[2023-05-16] MEDS ORDERED: ONDANSETRON HCL 4 MG/2 ML VIAL IV PRN (03:45)
[2023-05-16] MEDS ORDERED: DOCUSATE SOD 100 MG CAP PO PRN (03:45)
[2023-05-16] MEDS ORDERED: MORPHINE SULFATE INJ 2 MG/ml SYRG IV PRN (03:45)
[2023-05-16] MEDS ORDERED: ACETAMINOPHEN 325 MG TAB PO PRN (03:45)
[2023-05-16] MEDS ORDERED: HYDROcodone-ACET 5/325MG TAB PO PRN (03:45)
[2023-05-16] MEDS: D5W/SOD CHL 0.45% 1,000 ML IV SCH ×3 (06:32→20:06)
[2023-05-16 06:44] LABS: Basophils # (auto) 0 10 ^3/uL (0-0.2); Basophils % (auto) 0.2 % (0.0-2.0); Eosinophils # (auto) 0 10 ^3/uL (0-0.8); Hematocrit 42.5 % (41.0-53.0); Lymphocytes # (auto) 1.1 10 ^3/uL (0.4-5.4); Mean Corpuscular Hemoglobin 32.1 pg (28.0-32.0); Mean Corpuscular Volume 97.1 fL (80.0-100.0); Monocytes # (auto) 0.7 10 ^3/uL (0-1.3); Monocytes % (auto) 7.6 % (0.0-12.0); Neutrophils # (auto) 7.4 10 ^3/uL (1.6-8.6); Neutrophils % (auto) 80.2 % (37.0-80.0); Red Blood Cells 4.38 10^6/uL (4.5-5.90); Red Cell Distribution Width 14.2 % (11.8-14.3); White Blood Cell 9.2 10^3/uL (4.4-10.8)
[2023-05-16 07:05] LABS: Albumin 3.5 g/dL (3.4-5.0); Calcium 7.6 mg/dL (8.5-10.1); Potassium 4.1 mmol/L (3.5-5.1)
[2023-05-16 07:10] LABS: Bilirubin, Total 0.4 mg/dL (0.2-1.0); Total Protein 6.9 g/dL (6.4-8.2)
[2023-05-16 13:33] LABS: BUN/Creatinine Ratio 18.8 (10.0-20.0); Calcium 7.7 mg/dL (8.5-10.1); Potassium 4.1 mmol/L (3.5-5.1)
[2023-05-16 18:48] LABS: BUN/Creatinine Ratio 22.5 (10.0-20.0); Calcium 7.9 mg/dL (8.5-10.1); Potassium 4.2 mmol/L (3.5-5.1)
[2023-05-16] MEDS ORDERED: INSUINJ37 SC (18:49)
[2023-05-16] MEDS ORDERED: INSULIN LANTUS (GLARGINE) 1 /0.01ml (100units/ml) SC SCH (22:00)
[2023-05-17] MEDS: ACCU-CHEK COMFORT CURVE STRIP VI SCH ×4 (00:19→12:08)
[2023-05-17] MEDS: InsuLIN REG 1unit/0.01ml Soln (100units/ml) SC SCH ×4 (00:22→12:27)
[2023-05-17 05:11] LABS: Hematocrit 35.2 % (41.0-53.0); Hemoglobin 12.3 g/dL (13.5-17.5); Mean Corpuscular Hemoglobin 32.7 pg (28.0-32.0); Mean Corpuscular Hgb Conc. 34.9 g/dL (32.0-36.0); Mean Corpuscular Volume 93.7 fL (80.0-100.0); Red Blood Cells 3.75 10^6/uL (4.5-5.90); Red Cell Distribution Width 13.9 % (11.8-14.3); White Blood Cell 4.2 10^3/uL (4.4-10.8)
[2023-05-17 05:22] LABS: Albumin 2.9 g/dL (3.4-5.0); Calcium 7.7 mg/dL (8.5-10.1); Potassium 3.5 mmol/L (3.5-5.1)
[2023-05-17 05:31] LABS: BUN/Creatinine Ratio 18.2 (10.0-20.0); Bilirubin, Total 0.4 mg/dL (0.2-1.0); Total Protein 5.4 g/dL (6.4-8.2)
[2023-05-17 05:45] LABS: Basophils % (manual) 0 (0.0-2.0); Blast Cells 0; Metamyelocytes % 0; Myelocytes % 0; Promyelocytes % 0; Reactive Lymphocytes 0
[2023-05-17] MEDS ORDERED: INSULIN LANTUS (GLARGINE) 1 /0.01ml (100units/ml) SC SCH (07:00)
[2023-05-17 10:14] VITALS: BP 107/65
[2023-05-17 13:00] VITALS: BP_SYST 107; BP_SYST 143; BP_DIAS 65; BP_DIAS 81
[2023-05-17 14:30] LABS: Band Neutrophils % (manual) 2; Eosinophils % (manual) 2 (0-7); Lymphocytes % (manual) 20 (10.0-50.0); Monocytes % (manual) 19 (0-12)
== END 2023-05-17 15:00 | disposition left against medical advice (07) | DRG 420 ==
LOC: ER 21:09 → EDBD 21:09 → OVERFLOW 05-16 03:32 → CENTRAL 05-17 12:42 → TELE-CENTR 05-17 13:26
PROVIDERS: ADMIT Nurse Practitioner Family; ATTEND Internal Medicine
PROC: 05HB33Z Insertion of Infusion Device into Right Basilic Vein, Percutaneous Approach (ICD-10-PCS; principal; 2023-05-16)
PROC: B54MZZA Ultrasonography of Right Upper Extremity Veins, Guidance (ICD-10-PCS; 2023-05-16)
DX: E10.10 Type 1 diabetes mellitus with ketoacidosis without coma (principal); E87.5 Hyperkalemia; F17.210 Nicotine dependence, cigarettes, uncomplicated; Z53.29 Procedure and treatment not carried out because of patient's decision for other reasons; F41.9 Anxiety disorder, unspecified; F32.A Depression, unspecified; Z88.0 Allergy status to penicillin
CPT/HCPCS: 36415; 36600; 71045; 80048; 80053; 80320; 82010; 82805; 82962; 83036; 83605; 83690; 83735; 83930; 84100; 84484; 85007; 85025; 85027; 87040; G0378; J1815; J2405

== ENCOUNTER 2023-06-03 17:14 | Emergency (ER) | payer MEDICAID ==
[~2023-06-03] VITALS: Ht 167.6 cm; Wt 68.0 kg
[~2023-06-03 17:14] MED LIST changes: +INSUINJ37 SC
[2023-06-03] MEDS ORDERED: SODIUM CHLORIDE 0.9% 1,000 ML IV ONE (17:30)
[2023-06-03 17:40] VITALS: BP 117/78
[2023-06-03 18:13] LABS: Basophils # (auto) 0.1 10 ^3/uL (0-0.2); Basophils % (auto) 1.3 % (0.0-2.0); Eosinophils # (auto) 0 10 ^3/uL (0-0.8); Hematocrit 43.3 % (41.0-53.0); Hemoglobin 14.6 g/dL (13.5-17.5); Lymphocytes # (auto) 2.3 10 ^3/uL (0.4-5.4); Lymphocytes % (auto) 50.8 % (10.0-50.0); Mean Corpuscular Hemoglobin 31.8 pg (28.0-32.0); Mean Corpuscular Hgb Conc. 33.8 g/dL (32.0-36.0); Mean Corpuscular Volume 94.1 fL (80.0-100.0); Monocytes # (auto) 0.7 10 ^3/uL (0-1.3); Monocytes % (auto) 16.3 % (0.0-12.0); Neutrophils # (auto) 1.4 10 ^3/uL (1.6-8.6); Neutrophils % (auto) 30.6 % (37.0-80.0); Nucleated Red Blood Cells % 0.1 %; Red Cell Distribution Width 14.4 % (11.8-14.3); White Blood Cell 4.5 10^3/uL (4.4-10.8)
[2023-06-03 18:32] LABS: Albumin 3.8 g/dL (3.4-5.0); Calcium 8.3 mg/dL (8.5-10.1); Potassium 4.1 mmol/L (3.5-5.1)
[2023-06-03 18:39] LABS: BUN/Creatinine Ratio 12.2 (10.0-20.0); Bilirubin, Total 0.2 mg/dL (0.2-1.0); Total Protein 7.2 g/dL (6.4-8.2)
== END 2023-06-03 19:22 | disposition left against medical advice (07) ==
LOC: EDBD 17:14 → ER 17:14
DX: F10.129 Alcohol abuse with intoxication, unspecified (principal); F41.9 Anxiety disorder, unspecified; F32.9 Major depressive disorder, single episode, unspecified; E11.8 Type 2 diabetes mellitus with unspecified complications; F17.210 Nicotine dependence, cigarettes, uncomplicated; F15.90 Other stimulant use, unspecified, uncomplicated; Z79.899 Other long term (current) drug therapy; Z88.0 Allergy status to penicillin
CPT/HCPCS: 36415; 80053; 80320; 85025; 99283; J7030

== ENCOUNTER 2023-06-20 17:15 | Inpatient (IN) | payer MEDICAID ==
[~2023-06-20] VITALS: Ht 177.8 cm; Wt 61.0 kg
[2023-06-20 17:40] VITALS: PULSE 96; RESP 14; O2SAT 96
[2023-06-20] MEDS ORDERED: SODIUM CHLORIDE 0.9% 2,000 ML IVB ONE (18:00)
[2023-06-20 18:04] LABS: Basophils # (auto) 0 10 ^3/uL (0-0.2); Eosinophils # (auto) 0 10 ^3/uL (0-0.8); Eosinophils % (auto) 0.9 % (0.0-7.0); Hematocrit 47.1 % (41.0-53.0); Hemoglobin 15.8 g/dL (13.5-17.5); Lymphocytes # (auto) 1.9 10 ^3/uL (0.4-5.4); Lymphocytes % (auto) 42.7 % (10.0-50.0); Mean Corpuscular Hemoglobin 32.5 pg (28.0-32.0); Mean Corpuscular Hgb Conc. 33.5 g/dL (32.0-36.0); Mean Corpuscular Volume 97.1 fL (80.0-100.0); Monocytes # (auto) 0.6 10 ^3/uL (0-1.3); Monocytes % (auto) 12.8 % (0.0-12.0); Neutrophils # (auto) 1.9 10 ^3/uL (1.6-8.6); Neutrophils % (auto) 42.6 % (37.0-80.0); Nucleated Red Blood Cells % 0.2 %; Red Blood Cells 4.86 10^6/uL (4.5-5.90); Red Cell Distribution Width 14.3 % (11.8-14.3); White Blood Cell 4.4 10^3/uL (4.4-10.8)
[2023-06-20 18:20] LABS: Albumin 4.5 g/dL (3.4-5.0); Calcium 8.8 mg/dL (8.5-10.1)
[2023-06-20 18:21] LABS: Magnesium 2.4 mg/dL (1.6-2.6)
[2023-06-20 18:23] LABS: Bilirubin, Total 0.5 mg/dL (0.2-1.0); Total Protein 7.8 g/dL (6.4-8.2)
[2023-06-20 18:45] LABS: BUN/Creatinine Ratio 12.4 (10.0-20.0)
[2023-06-20 19:12] LABS: Urine WBC None Seen /hpf (0 - 3)
[2023-06-20 19:20] VITALS: PULSE 98; RESP 12; O2SAT 99
[2023-06-20 19:22] LABS: Urine Bacteria NONE SEEN /hpf (None Seen); Urine Blood Negative /uL (Negative); Urine Specific Gravity 1.032 (1.001-1.035)
[2023-06-20] MEDS ORDERED: POTASSIUM PHOSPHATE 22 MEQ in SODIUM CHL 0.9% 100 ML IV ONE (19:30)
[2023-06-20] MEDS ORDERED: InsuLIN R (HUMAN) 100 UNITS in SODIUM CHL 0.9% 99 ML IV SCH (19:30)
[2023-06-20] MEDS ORDERED: InsuLIN REG 1unit/0.01ml Soln (100units/ml) IV ONE (19:30)
[2023-06-20] MEDS ORDERED: DEXTROSE (50%) 50ML SYRG IV PRN (19:30)
[2023-06-20 19:40] LABS: Amphetamine Screen, Urine POSITIVE (NEGATIVE); Barbiturate Scree,Urine NEGATIVE (NEGATIVE); Benzodiazephine Screen, Urine NEGATIVE (NEGATIVE); Cannabinoid Screen, Urine NEGATIVE (NEGATIVE); Cocaine Screen, Urine NEGATIVE (NEGATIVE)
[2023-06-20] MEDS: SODIUM CHLORIDE 0.9% 1,000 ML IV SCH ×2 (19:44→21:36)
[2023-06-20 19:48] LABS: Opiate Scree,Urine NEGATIVE (NEGATIVE); Phencyclidine Screen, Urine NEGATIVE (NEGATIVE)
[2023-06-20] MEDS ORDERED: DOCUSATE SOD 100 MG CAP PO PRN (21:00)
[2023-06-20] MEDS ORDERED: NITROGLYCERIN 0.4 MG SL TAB SL PRN (21:00)
[2023-06-20] MEDS ORDERED: IBUPROFEN 600 MG TAB PO PRN (21:00)
[2023-06-20] MEDS ORDERED: MORPHINE SULFATE INJ 2 MG/ml SYRG IV PRN (21:00)
[2023-06-20] MEDS ORDERED: SODIUM BICARBONATE 50ML VIAL 50 ML in SOD CHL 0.45% 1,000 ML IV SCH (21:00)
[2023-06-20] MEDS ORDERED: ONDANSETRON HCL 4 MG/2 ML VIAL IV PRN (21:00)
[2023-06-20] MEDS: MAGNESIUM SULFATE 1GM/100ML 100 ML IV SCH ×2 (21:26→22:23)
[2023-06-20] MEDS: ACCU-CHEK COMFORT CURVE STRIP VI SCH ×2 (21:32→22:40)
[2023-06-20 22:11] LABS: Magnesium 2.5 mg/dL (1.6-2.6)
[2023-06-20] MEDS ORDERED: SODIUM CHLORIDE 0.9% 1,000 ML IV SCH (23:30)
[2023-06-21] VITALS (8 sets, daily range): BP systolic 103–128; BP diastolic 56–74; PULSE 59–86; RESP 14–18; TEMP 97.6–98.6; O2SAT 96–98
[2023-06-21] MEDS: ACCU-CHEK COMFORT CURVE STRIP VI SCH ×7 (00:05→21:57)
[2023-06-21] MEDS ORDERED: SODIUM CHLORIDE 0.9% 1,000 ML IV SCH (01:30)
[2023-06-21] MEDS ORDERED: SODIUM BICARBONATE 8.4 % INJ 50ML VIAL IV ONE (01:45)
[2023-06-21 02:09] LABS: Albumin 2.9 g/dL (3.4-5.0); Calcium 6.2 mg/dL (8.5-10.1); Potassium 4.2 mmol/L (3.5-5.1)
[2023-06-21 02:12] LABS: Bilirubin, Total 0.3 mg/dL (0.2-1.0); Total Protein 5.4 g/dL (6.4-8.2)
[2023-06-21] MEDS ORDERED: D5W/SOD CHL 0.45% 1,000 ML IV SCH (02:30)
[2023-06-21] MEDS ORDERED: DEXTROSE (50%) 50ML SYRG IV PRN (03:00)
[2023-06-21] MEDS: InsuLIN REG 1unit/0.01ml Soln (100units/ml) SC SCH ×5 (04:38→21:53)
[2023-06-21 04:47] LABS: Basophils # (auto) 0 10 ^3/uL (0-0.2); Basophils % (auto) 1.1 % (0.0-2.0); Eosinophils # (auto) 0.1 10 ^3/uL (0-0.8); Eosinophils % (auto) 2.5 % (0.0-7.0); Hematocrit 39.3 % (41.0-53.0); Hemoglobin 13.4 g/dL (13.5-17.5); Lymphocytes # (auto) 1.7 10 ^3/uL (0.4-5.4); Lymphocytes % (auto) 37.8 % (10.0-50.0); Mean Corpuscular Hemoglobin 32.8 pg (28.0-32.0); Mean Corpuscular Hgb Conc. 34.2 g/dL (32.0-36.0); Monocytes # (auto) 0.6 10 ^3/uL (0-1.3); Monocytes % (auto) 12.8 % (0.0-12.0); Neutrophils % (auto) 45.8 % (37.0-80.0); Red Blood Cells 4.09 10^6/uL (4.5-5.90); Red Cell Distribution Width 14.1 % (11.8-14.3); White Blood Cell 4.4 10^3/uL (4.4-10.8)
[2023-06-21 04:58] LABS: Potassium 4.1 mmol/L (3.5-5.1)
[2023-06-21 05:07] LABS: Albumin 3.1 g/dL (3.4-5.0); BUN/Creatinine Ratio 12.5 (10.0-20.0); Calcium 6.7 mg/dL (8.5-10.1)
[2023-06-21 05:21] LABS: Bilirubin, Total 0.4 mg/dL (0.2-1.0); Total Protein 5.6 g/dL (6.4-8.2)
[2023-06-21] MEDS: FOLIC ACID 1 MG in D5W 5% 50 ML INJ SCH (10:43)
[2023-06-21] MEDS: MULTIPLE VITAMIN TAB PO SCH (10:44)
[2023-06-21] MEDS: THIAMINE 100mg/ml INJ (200mg/2ml VIAL) IV SCH (10:44)
[2023-06-21] MEDS ORDERED: ENOXAPARIN SOD 30 MG/0.3 ML SYRINGE SC ONE (12:00)
[2023-06-21] MEDS ORDERED: ONDANSETRON HCL 4 MG/2 ML VIAL IV PRN (12:00)
[2023-06-21] MEDS ORDERED: FAMOTIDINE (10MG/ML) 2ML VL IV ONE (12:00)
[2023-06-21] MEDS: HYDROcodone-ACET 5/325MG TAB PO PRN ×2 (12:22→19:53)
[2023-06-22 05:00] VITALS: BP 119/77; PULSE 70; RESP 18; TEMP 97.7; O2SAT 94
[2023-06-22 06:03] LABS: Basophils # (auto) 0 10 ^3/uL (0-0.2); Basophils % (auto) 0.9 % (0.0-2.0); Eosinophils # (auto) 0.1 10 ^3/uL (0-0.8); Eosinophils % (auto) 1.5 % (0.0-7.0); Hematocrit 43.6 % (41.0-53.0); Hemoglobin 15.2 g/dL (13.5-17.5); Lymphocytes # (auto) 1.6 10 ^3/uL (0.4-5.4); Mean Corpuscular Hemoglobin 33.1 pg (28.0-32.0); Mean Corpuscular Hgb Conc. 34.8 g/dL (32.0-36.0); Mean Corpuscular Volume 94.9 fL (80.0-100.0); Monocytes # (auto) 0.5 10 ^3/uL (0-1.3); Neutrophils # (auto) 1.5 10 ^3/uL (1.6-8.6); Neutrophils % (auto) 41.6 % (37.0-80.0); Nucleated Red Blood Cells % 0.1 %; Red Blood Cells 4.59 10^6/uL (4.5-5.90); Red Cell Distribution Width 14.1 % (11.8-14.3); White Blood Cell 3.7 10^3/uL (4.4-10.8)
[2023-06-22] MEDS: ACCU-CHEK COMFORT CURVE STRIP VI SCH ×2 (06:08→11:30)
[2023-06-22] MEDS: InsuLIN REG 1unit/0.01ml Soln (100units/ml) SC SCH ×2 (06:08→11:31)
[2023-06-22 06:21] LABS: Albumin 2.8 g/dL (3.4-5.0); Calcium 8.1 mg/dL (8.5-10.1)
[2023-06-22 06:22] LABS: INR 1.09 (0.9-1.15)
[2023-06-22 06:26] LABS: BUN/Creatinine Ratio 29.1 (10.0-20.0); Bilirubin, Total 0.3 mg/dL (0.2-1.0); Total Protein 5.5 g/dL (6.4-8.2)
[2023-06-22 08:00] VITALS: BP 116/78; PULSE 64; PULSE 69; RESP 18; TEMP 97.7; O2SAT 99
[2023-06-22 09:00] VITALS: BP 116/78; PULSE 69; RESP 18; TEMP 97.7; O2SAT 99
[2023-06-22] MEDS ORDERED: FAMOTIDINE (10MG/ML) 2ML VL IV SCH (10:00)
[2023-06-22] MEDS ORDERED: ENOXAPARIN SOD 30 MG/0.3 ML SYRINGE SC SCH (10:00)
[2023-06-22] MEDS: THIAMINE 100mg/ml INJ (200mg/2ml VIAL) IV SCH (10:04)
[2023-06-22] MEDS: MULTIPLE VITAMIN TAB PO SCH (10:06)
[2023-06-22] MEDS: FOLIC ACID 1 MG in D5W 5% 50 ML INJ SCH (10:07)
[2023-06-22 13:00] VITALS: BP 129/83; PULSE 58; RESP 20; TEMP 97.9; O2SAT 97
[2023-06-22] MEDS ORDERED: INSULIN LANTUS (GLARGINE) 1 /0.01ml (100units/ml) SC SCH (14:15)
[2023-06-22] MEDS ORDERED: DEXTROSE (50%) 50ML SYRG IV PRN (14:15)
[2023-06-22] MEDS ORDERED: ACCU-CHEK COMFORT CURVE STRIP VI SCH (17:00)
[2023-06-22] MEDS ORDERED: InsuLIN REG 1unit/0.01ml Soln (100units/ml) SC SCH ×3 (17:00→22:00)
[2023-06-23] MEDS ORDERED: MULTIPLE VITAMINS W/ MINERALS TAB PO SCH (10:00)
== END 2023-06-22 16:12 | disposition left against medical advice (07) | DRG 420 ==
LOC: EDBD 17:15 → ER 17:15 → TELE 21:17 → TELE-WESTW 06-21 05:33
PROVIDERS: ADMIT Internal Medicine Pulmonary Disease; ATTEND Student in an Organized Health Care Education/Training Program
DX: E10.10 Type 1 diabetes mellitus with ketoacidosis without coma (principal); G93.41 Metabolic encephalopathy; E83.51 Hypocalcemia; K70.10 Alcoholic hepatitis without ascites; F10.129 Alcohol abuse with intoxication, unspecified; E87.1 Hypo-osmolality and hyponatremia; Z53.29 Procedure and treatment not carried out because of patient's decision for other reasons; F32.A Depression, unspecified; F41.9 Anxiety disorder, unspecified; F17.210 Nicotine dependence, cigarettes, uncomplicated; F15.90 Other stimulant use, unspecified, uncomplicated; Y90.9 Presence of alcohol in blood, level not specified; E87.5 Hyperkalemia; Z88.0 Allergy status to penicillin; Z79.899 Other long term (current) drug therapy; Z79.4 Long term (current) use of insulin; Z83.3 Family history of diabetes mellitus; Z68.1 Body mass index [BMI] 19.9 or less, adult
CPT/HCPCS: 36415; 36600; 76705; 80053; 80061; 80307; 80320; 81001; 82010; 82140; 82805; 82962; 83036; 83605; 83690; 83735; 83930; 84100; 85025; 85610; 87081; 93005; 96361; 96365; 96366; 96368; 96375; G0378; J1815; J3490; J7060

== ENCOUNTER 2023-07-11 13:05 | Inpatient (IN) | payer MEDICAID ==
[~2023-07-11] VITALS: Ht 177.8 cm; Wt 64.5 kg
[~2023-07-11 13:05] MED LIST changes: -DOXY-448 PO; -INSLANTI SC
[2023-07-11] MEDS ORDERED: SODIUM CHLORIDE 0.9% 1,000 ML IV ONE (13:30)
[2023-07-11] MEDS ORDERED: ONDANSETRON HCL 4 MG/2 ML VIAL IV ONE (13:30)
[2023-07-11] MEDS ORDERED: INSULIN LISPRO (HUMAN) 100 UNITS/ML ML SC ONE (13:30)
[2023-07-11 14:25] LABS: Basophils # (auto) 0.2 10 ^3/uL (0-0.2); Basophils % (auto) 4.1 % (0.0-2.0); Eosinophils # (auto) 0 10 ^3/uL (0-0.8); Eosinophils % (auto) 0.3 % (0.0-7.0); Hematocrit 45.5 % (41.0-53.0); Hemoglobin 14.9 g/dL (13.5-17.5); Lymphocytes # (auto) 0.9 10 ^3/uL (0.4-5.4); Lymphocytes % (auto) 20.9 % (10.0-50.0); Mean Corpuscular Hemoglobin 32.4 pg (28.0-32.0); Mean Corpuscular Hgb Conc. 32.7 g/dL (32.0-36.0); Monocytes # (auto) 0.5 10 ^3/uL (0-1.3); Monocytes % (auto) 11.6 % (0.0-12.0); Neutrophils # (auto) 2.8 10 ^3/uL (1.6-8.6); Neutrophils % (auto) 63.1 % (37.0-80.0); Nucleated Red Blood Cells % 0.4 %; Red Cell Distribution Width 14.4 % (11.8-14.3); White Blood Cell 4.4 10^3/uL (4.4-10.8)
[2023-07-11 14:51] LABS: Magnesium 2.2 mg/dL (1.6-2.6); Potassium 4.8 mmol/L (3.5-5.1)
[2023-07-11 15:00] LABS: BUN/Creatinine Ratio 16.7 (10.0-20.0); Bilirubin, Total 0.6 mg/dL (0.2-1.0); Total Protein 7.1 g/dL (6.4-8.2)
[2023-07-11 17:30] VITALS: PULSE 77; RESP 21; O2SAT 97
[2023-07-11 18:03] LABS: Urine Bacteria FEW /hpf (None Seen); Urine Blood Negative /uL (Negative); Urine Clarity Clear (Clear); Urine Color Colorless (Yellow); Urine Mucus FEW (None Seen); Urine Protein, UAD Negative (Negative); Urine Specific Gravity 1.024 (1.001-1.035); Urine Urobilinogen Normal (Negative); Urine WBC 1 /hpf (0 - 3)
[2023-07-11 18:40] LABS: Base Excess -8.3 mmol/L (-2.0-2.0)
[2023-07-11 20:07] VITALS: PULSE 69; RESP 16; O2SAT 98
[2023-07-11] MEDS ORDERED: DEXTROSE (50%) 50ML SYRG IV PRN (21:15)
[2023-07-11] MEDS ORDERED: ONDANSETRON HCL 4 MG/2 ML VIAL IV PRN (21:15)
[2023-07-11] MEDS ORDERED: DOCUSATE SOD 100 MG CAP PO PRN (21:15)
[2023-07-11] MEDS ORDERED: SODIUM CHLORIDE 0.9% 500 ML IV ONE (21:15)
[2023-07-11] MEDS ORDERED: SODIUM BICARBONATE 8.4 % INJ 50ML VIAL IV ONE (21:15)
[2023-07-11] MEDS ORDERED: IBUPROFEN 600 MG TAB PO PRN (21:15)
[2023-07-11 21:17] LABS: Albumin 3.3 g/dL (3.4-5.0); BUN/Creatinine Ratio 18.8 (10.0-20.0); Calcium 7.6 mg/dL (8.5-10.1)
[2023-07-11 21:20] LABS: Bilirubin, Total 0.4 mg/dL (0.2-1.0); Total Protein 6.2 g/dL (6.4-8.2)
[2023-07-11] MEDS: HYDROcodone-ACET 5/325MG TAB PO PRN (21:53)
[2023-07-11] MEDS: SODIUM CHLORIDE 0.9% 1,000 ML IV SCH (21:53)
[2023-07-11] MEDS ORDERED: NITROGLYCERIN 0.4 MG SL TAB SL PRN (23:45)
[2023-07-11] MEDS ORDERED: MORPHINE SULFATE INJ 2 MG/ml SYRG IV PRN (23:45)
[2023-07-12] MEDS: InsuLIN REG 1unit/0.01ml Soln (100units/ml) SC SCH ×7 (02:39→23:51)
[2023-07-12] MEDS: ACCU-CHEK COMFORT CURVE STRIP VI SCH ×7 (02:41→23:51)
[2023-07-12 03:00] VITALS: PULSE 71; RESP 12; O2SAT 97
[2023-07-12 05:39] LABS: Basophils # (auto) 0 10 ^3/uL (0-0.2); Basophils % (auto) 0.7 % (0.0-2.0); Eosinophils # (auto) 0 10 ^3/uL (0-0.8); Eosinophils % (auto) 0.7 % (0.0-7.0); Hematocrit 39.9 % (41.0-53.0); Hemoglobin 13.7 g/dL (13.5-17.5); Lymphocytes # (auto) 1.2 10 ^3/uL (0.4-5.4); Lymphocytes % (auto) 36.2 % (10.0-50.0); Mean Corpuscular Hemoglobin 32.6 pg (28.0-32.0); Mean Corpuscular Hgb Conc. 34.4 g/dL (32.0-36.0); Mean Corpuscular Volume 94.6 fL (80.0-100.0); Monocytes # (auto) 0.5 10 ^3/uL (0-1.3); Neutrophils # (auto) 1.6 10 ^3/uL (1.6-8.6); Neutrophils % (auto) 48.4 % (37.0-80.0); Nucleated Red Blood Cells % 0.1 %; Red Blood Cells 4.22 10^6/uL (4.5-5.90); Red Cell Distribution Width 14.2 % (11.8-14.3); White Blood Cell 3.4 10^3/uL (4.4-10.8)
[2023-07-12 05:53] LABS: Albumin 2.9 g/dL (3.4-5.0); Calcium 7.8 mg/dL (8.5-10.1); Potassium 3.4 mmol/L (3.5-5.1)
[2023-07-12 05:57] LABS: BUN/Creatinine Ratio 19.5 (10.0-20.0); Bilirubin, Total 0.4 mg/dL (0.2-1.0); Total Protein 5.5 g/dL (6.4-8.2)
[2023-07-12 07:34] VITALS: PULSE 88; RESP 16; O2SAT 97
[2023-07-12] MEDS ORDERED: POTASSIUM CHL 20 Meq TABLET PO STA (08:09)
[2023-07-12] MEDS: ASPirin 81 mg TAB PO SCH (12:04)
[2023-07-12] MEDS: SODIUM CHLORIDE 0.9% 1,000 ML IV SCH ×2 (13:57→18:35)
[2023-07-12 18:05] VITALS: BP 122/72; PULSE 60; RESP 17; TEMP 98.1; O2SAT 97
[2023-07-12] MEDS: INSULIN LANTUS (GLARGINE) 1 /0.01ml (100units/ml) SC SCH (20:51)
[2023-07-12] MEDS: HYDROcodone-ACET 5/325MG TAB PO PRN (20:53)
[2023-07-12 22:00] VITALS: BP 114/69; PULSE 78; RESP 18; TEMP 98.2; O2SAT 99
[2023-07-13] MEDS: ACCU-CHEK COMFORT CURVE STRIP VI SCH ×3 (04:21→12:00)
[2023-07-13] MEDS: HYDROcodone-ACET 5/325MG TAB PO PRN (04:22)
[2023-07-13] MEDS: InsuLIN REG 1unit/0.01ml Soln (100units/ml) SC SCH ×3 (04:24→12:00)
[2023-07-13 04:49] VITALS: BP 100/72; PULSE 63; RESP 18; TEMP 97.7; O2SAT 99
[2023-07-13] MEDS: INSULIN LANTUS (GLARGINE) 1 /0.01ml (100units/ml) SC SCH (06:27)
[2023-07-13] MEDS ORDERED: POTASSIUM CHL 20 Meq TABLET PO ONE (07:00)
[2023-07-13 08:00] VITALS: PULSE 70; RESP 18; O2SAT 98
[2023-07-13 08:51] VITALS: BP 106/69; PULSE 65; RESP 17; TEMP 97.7; O2SAT 98
[2023-07-13] MEDS: ASPirin 81 mg TAB PO SCH (09:43)
[2023-07-13 09:52] LABS: Basophils # (auto) 0 10 ^3/uL (0-0.2); Basophils % (auto) 0.5 % (0.0-2.0); Eosinophils # (auto) 0 10 ^3/uL (0-0.8); Eosinophils % (auto) 0.7 % (0.0-7.0); Hematocrit 41.3 % (41.0-53.0); Hemoglobin 14.3 g/dL (13.5-17.5); Lymphocytes # (auto) 1.2 10 ^3/uL (0.4-5.4); Lymphocytes % (auto) 28.5 % (10.0-50.0); Mean Corpuscular Hemoglobin 32.9 pg (28.0-32.0); Mean Corpuscular Hgb Conc. 34.7 g/dL (32.0-36.0); Mean Corpuscular Volume 94.7 fL (80.0-100.0); Monocytes # (auto) 0.6 10 ^3/uL (0-1.3); Monocytes % (auto) 14.9 % (0.0-12.0); Neutrophils # (auto) 2.2 10 ^3/uL (1.6-8.6); Neutrophils % (auto) 55.4 % (37.0-80.0); Nucleated Red Blood Cells % 0.2 %; Red Blood Cells 4.36 10^6/uL (4.5-5.90); Red Cell Distribution Width 14.4 % (11.8-14.3)
[2023-07-13 10:24] LABS: Albumin 2.8 g/dL (3.4-5.0); Calcium 7.7 mg/dL (8.5-10.1)
[2023-07-13 10:28] LABS: BUN/Creatinine Ratio 23.7 (10.0-20.0); Bilirubin, Total 0.4 mg/dL (0.2-1.0); Total Protein 5.4 g/dL (6.4-8.2)
[2023-07-13] MEDS ORDERED: INSLANTI SC ×2 (11:34→11:41)
[2023-07-13] MEDS ORDERED: INSREGI SC (11:41)
[2023-07-13 13:01] VITALS: BP 116/63; PULSE 69; RESP 16; TEMP 97.9; O2SAT 98
[2023-07-13 14:36] VITALS: BP 122/76; PULSE 77; RESP 18; TEMP 97.9; O2SAT 98
== END 2023-07-13 15:00 | disposition home or self-care (01) | DRG 420 ==
LOC: ER 13:05 → EDBD 13:05 → TELE 23:44 → EAST 07-12 18:10
PROVIDERS: ADMIT Internal Medicine Pulmonary Disease
DX: E11.10 Type 2 diabetes mellitus with ketoacidosis without coma (principal); E44.0 Moderate protein-calorie malnutrition; E83.51 Hypocalcemia; E87.1 Hypo-osmolality and hyponatremia; F15.90 Other stimulant use, unspecified, uncomplicated; F41.9 Anxiety disorder, unspecified; F32.A Depression, unspecified; F17.210 Nicotine dependence, cigarettes, uncomplicated; E11.65 Type 2 diabetes mellitus with hyperglycemia; R74.01 Elevation of levels of liver transaminase levels; Z79.4 Long term (current) use of insulin; Z59.00 Homelessness unspecified; Z88.0 Allergy status to penicillin; Z68.20 Body mass index [BMI] 20.0-20.9, adult
CPT/HCPCS: 36415; 36600; 71045; 74176; 80053; 81001; 82805; 82962; 83735; 83880; 84484; 85025; 93005; 96361; 96372; 96374; 96375; G0378; J1815; J2405

== ENCOUNTER 2023-07-24 14:28 | Inpatient (IN) | payer MEDICAID ==
[~2023-07-24] VITALS: Ht 170.2 cm; Wt 70.4 kg
[~2023-07-24 14:28] MED LIST changes: +INSLANTI SC; +INSREGI SC; -INSUINJ37 SC
[2023-07-24] MEDS ORDERED: SODIUM CHLORIDE 0.9% 1,000 ML IVB ONE (15:00)
[2023-07-24] MEDS ORDERED: PROCHLORPERAZINE EDISYLATE 5 MG/ML 2ML VIAL IV ONE (15:00)
[2023-07-24 15:17] LABS: Basophils # (auto) 0.1 10 ^3/uL (0-0.2); Basophils % (auto) 0.9 % (0.0-2.0); Eosinophils # (auto) 0 10 ^3/uL (0-0.8); Eosinophils % (auto) 0.1 % (0.0-7.0); Hematocrit 51.8 % (41.0-53.0); Hemoglobin 16.6 g/dL (13.5-17.5); Lymphocytes # (auto) 1.3 10 ^3/uL (0.4-5.4); Lymphocytes % (auto) 17.8 % (10.0-50.0); Mean Corpuscular Hemoglobin 31.8 pg (28.0-32.0); Mean Corpuscular Hgb Conc. 32.1 g/dL (32.0-36.0); Monocytes # (auto) 0.6 10 ^3/uL (0-1.3); Monocytes % (auto) 7.9 % (0.0-12.0); Neutrophils # (auto) 5.2 10 ^3/uL (1.6-8.6); Neutrophils % (auto) 73.3 % (37.0-80.0); Nucleated Red Blood Cells % 0.1 %; Red Blood Cells 5.24 10^6/uL (4.5-5.90); Red Cell Distribution Width 14.5 % (11.8-14.3); White Blood Cell 7.1 10^3/uL (4.4-10.8)
[2023-07-24 15:36] LABS: Alanine Aminotransferase 60 U/L (7-40); Alkaline Phosphatase 184 U/L (46-116); Anion Gap 31.00001 (5-15); Aspartate Aminotransferase 59 U/L (13-40); BUN/Creatinine Ratio 10.3 (10.0-20.0); Blood Urea Nitrogen 11 mg/dL (9-23); Calcium 9.1 mg/dL (8.5-10.1); Chloride 91 mmol/L (98-107); Potassium 4.5 mmol/L (3.5-5.1); Sodium 132 mmol/L (136-145)
[2023-07-24 15:37] LABS: Bilirubin, Total 0.5 mg/dL (0.2-1.0)
[2023-07-24 15:43] LABS: Carbon Dioxide < 10.0 mmol/L (20-30)
[2023-07-24 15:44] LABS: Glucose 463 mg/dL (74-106)
[2023-07-24] MEDS ORDERED: INSULIN LANTUS (GLARGINE) 1 /0.01ml (100units/ml) SC ONE (16:00)
[2023-07-24] MEDS ORDERED: InsuLIN R (HUMAN) 100 UNITS in SODIUM CHL 0.9% 99 ML IV SCH (16:00)
[2023-07-24] MEDS ORDERED: DEXTROSE (50%) 50ML SYRG IV PRN (16:00)
[2023-07-24] MEDS ORDERED: InsuLIN REG 1unit/0.01ml Soln (100units/ml) IV ONE (16:00)
[2023-07-24] MEDS: ACCU-CHEK COMFORT CURVE STRIP VI SCH ×5 (16:30→22:39)
[2023-07-24 17:24] LABS: Base Excess -15.8 mmol/L (-2.0-2.0)
[2023-07-24] MEDS ORDERED: SODIUM BICARBONATE 8.4 % INJ 50ML VIAL IV ONE (17:30)
[2023-07-24] MEDS ORDERED: SODIUM BICARBONATE 8.4% INJ 50ML SYRINGE ONE (17:45)
[2023-07-24] MEDS ORDERED: ACETAMINOPHEN 325 MG TAB PO PRN (18:00)
[2023-07-24] MEDS ORDERED: HYDROcodone-ACET 5/325MG TAB PO PRN (18:00)
[2023-07-24] MEDS ORDERED: DOCUSATE SOD 100 MG CAP PO PRN (18:00)
[2023-07-24] MEDS ORDERED: ONDANSETRON HCL 4 MG/2 ML VIAL IV PRN (18:00)
[2023-07-24] MEDS ORDERED: SODIUM CHLORIDE 0.9% 1,000 ML IV SCH (18:00)
[2023-07-24] MEDS ORDERED: SODIUM CHLORIDE 0.9% 1,000 ML IV ONE (18:00)
[2023-07-24] MEDS: chlordiazePOXIDE HCL 25 MG CAP PO SCH (18:15)
[2023-07-24] MEDS ORDERED: LORazepam 2MG/ML-1ML VIAL IV PRN (18:15)
[2023-07-24 18:54] LABS: Urine WBC None Seen /hpf (0 - 3)
[2023-07-24 19:18] LABS: Urine Bacteria NONE SEEN /hpf (None Seen); Urine Blood 2+ /uL (Negative); Urine Clarity Clear (Clear); Urine Color Colorless (Yellow); Urine Hyaline Cast FEW /lpf (0 - 2); Urine Protein, UAD TRACE (Negative); Urine Specific Gravity 1.022 (1.001-1.035); Urine Urobilinogen Normal (Negative); Urine pH 5.5 (5.0-8.0)
[2023-07-24 19:20] LABS: Amphetamine Screen, Urine Pos (NEGATIVE); Barbiturate Scree,Urine Neg (NEGATIVE)
[2023-07-24 19:21] LABS: Benzodiazephine Screen, Urine Neg (NEGATIVE); Cannabinoid Screen, Urine Neg (NEGATIVE); Cocaine Screen, Urine Neg (NEGATIVE); Opiate Scree,Urine Neg (NEGATIVE); Phencyclidine Screen, Urine Neg (NEGATIVE)
[2023-07-24 19:30] VITALS: PULSE 85; RESP 12; O2SAT 100
[2023-07-24] MEDS: D5W/SOD CHLO 0.9% 1,000 ML IV SCH (21:59)
[2023-07-24 22:01] LABS: Alanine Aminotransferase 48 U/L (7-40); Alkaline Phosphatase 149 U/L (46-116); Calcium 7.8 mg/dL (8.7-10.4); Carbon Dioxide 19.9 mmol/L (20-30); Chloride 100 mmol/L (98-107)
[2023-07-24 22:02] LABS: Albumin 4.1 g/dL (3.2-4.8); Anion Gap 16.1 (5-15); Aspartate Aminotransferase 37 U/L (13-40); BUN/Creatinine Ratio 10.6 (10.0-20.0); Bilirubin, Total 0.5 mg/dL (0.2-1.0); Blood Urea Nitrogen 9 mg/dL (9-23); Glucose 92 mg/dL (74-106); Sodium 136 mmol/L (136-145); Total Protein 6.3 g/dL (5.7-8.2)
[2023-07-25] MEDS: ACCU-CHEK COMFORT CURVE STRIP VI SCH ×6 (00:04→12:18)
[2023-07-25 01:00] LABS: Chloride 101 mmol/L (98-107); Potassium 3.4 mmol/L (3.5-5.1); Sodium 137 mmol/L (136-145)
[2023-07-25 01:01] LABS: Calcium 7.6 mg/dL (8.7-10.4)
[2023-07-25 01:06] LABS: BUN/Creatinine Ratio 13.3 (10.0-20.0); Blood Urea Nitrogen 11 mg/dL (9-23); Glucose 117 mg/dL (74-106)
[2023-07-25] MEDS: chlordiazePOXIDE HCL 25 MG CAP PO SCH ×2 (02:15→10:54)
[2023-07-25] MEDS: InsuLIN REG 1unit/0.01ml Soln (100units/ml) SC SCH ×3 (04:00→12:18)
[2023-07-25] MEDS: D5W/SOD CHLO 0.9% 1,000 ML IV SCH ×2 (04:40→10:58)
[2023-07-25] MEDS ORDERED: MIDAZOLAM HCL 5 MG/ML-1ML VIAL IV ONE (04:45)
[2023-07-25 05:22] VITALS: O2SAT 100
[2023-07-25 05:31] LABS: Basophils # (auto) 0 10 ^3/uL (0-0.2); Basophils % (auto) 0.7 % (0.0-2.0); Eosinophils # (auto) 0 10 ^3/uL (0-0.8); Eosinophils % (auto) 0.9 % (0.0-7.0); Hematocrit 39.2 % (41.0-53.0); Hemoglobin 13.5 g/dL (13.5-17.5); Lymphocytes # (auto) 1.4 10 ^3/uL (0.4-5.4); Lymphocytes % (auto) 34.7 % (10.0-50.0); Mean Corpuscular Hemoglobin 32.6 pg (28.0-32.0); Mean Corpuscular Hgb Conc. 34.4 g/dL (32.0-36.0); Monocytes # (auto) 0.6 10 ^3/uL (0-1.3); Monocytes % (auto) 13.7 % (0.0-12.0); Nucleated Red Blood Cells % 0.1 %; Red Blood Cells 4.12 10^6/uL (4.5-5.90); Red Cell Distribution Width 14.3 % (11.8-14.3)
[2023-07-25 05:33] LABS: Anion Gap 10.1 (5-15); Carbon Dioxide 23.9 mmol/L (20-30); Chloride 102 mmol/L (98-107); Potassium 3.2 mmol/L (3.5-5.1); Sodium 136 mmol/L (136-145)
[2023-07-25 05:34] LABS: Calcium 7.6 mg/dL (8.5-10.1)
[2023-07-25 05:39] LABS: BUN/Creatinine Ratio 15.3 (10.0-20.0); Blood Urea Nitrogen 11 mg/dL (9-23); Glucose 88 mg/dL (74-106)
[2023-07-25 06:15] LABS: Base Excess -1.6 mmol/L (-2.0-2.0)
[2023-07-25 08:00] VITALS: PULSE 57; RESP 14; TEMP 98.2; O2SAT 96
[2023-07-25] MEDS ORDERED: chlordiazePOXIDE HCL 25 MG CAP PO SCH (10:00)
[2023-07-25] MEDS ORDERED: INSULIN LANTUS (GLARGINE) 1 /0.01ml (100units/ml) SC SCH (10:00)
[2023-07-25 12:00] VITALS: BP 95/56; RESP 25; O2SAT 94
[2023-07-25 12:05] VITALS: PULSE 66
[2023-07-25 12:19] LABS: Chloride 102 mmol/L (98-107); Potassium 3.6 mmol/L (3.5-5.1); Sodium 133 mmol/L (136-145)
[2023-07-25 12:20] LABS: Anion Gap 7.7 (5-15); Carbon Dioxide 23.3 mmol/L (20-30)
[2023-07-25 12:21] LABS: Calcium 8.1 mg/dL (8.5-10.1)
[2023-07-25 12:25] LABS: BUN/Creatinine Ratio 17.1 (10.0-20.0); Blood Urea Nitrogen 13 mg/dL (9-23); Glucose 173 mg/dL (74-106)
[2023-07-25] MEDS ORDERED: SODIUM CHLORIDE 0.9% 1,000 ML IV SCH (12:45)
[2023-07-25] MEDS ORDERED: POTASSIUM EFFERVESENT TAB 25 MEQ PO ONE (12:45)
[2023-07-26] MEDS ORDERED: chlordiazePOXIDE HCL 25 MG CAP PO SCH (10:00)
[2023-07-27] MEDS ORDERED: chlordiazePOXIDE HCL 25 MG CAP PO SCH (07:00)
== END 2023-07-25 13:51 | disposition left against medical advice (07) | DRG 420 ==
LOC: ER 14:28 → EDBD 14:28 → TELE 18:12
PROVIDERS: ADMIT Nurse Practitioner Family; ATTEND Nurse Practitioner Family
DX: E10.10 Type 1 diabetes mellitus with ketoacidosis without coma (principal); N17.9 Acute kidney failure, unspecified; Z53.29 Procedure and treatment not carried out because of patient's decision for other reasons; F15.10 Other stimulant abuse, uncomplicated; F17.210 Nicotine dependence, cigarettes, uncomplicated; Z88.0 Allergy status to penicillin; Z59.00 Homelessness unspecified; Z79.4 Long term (current) use of insulin; Z91.148 Patient's other noncompliance with medication regimen for other reason
CPT/HCPCS: 36415; 36600; 71045; 80048; 80053; 80307; 81001; 82010; 82805; 82962; 83036; 83735; 85025; 96365; 96375; 99291; G0378; J1815; J7042

== ENCOUNTER 2023-10-22 21:56 | Inpatient (IN) | payer MEDICAID ==
[~2023-10-22] VITALS: Ht 177.8 cm; Wt 68.8 kg
[2023-10-22 22:47] LABS: Alanine Aminotransferase 76 U/L (7-40); Albumin 4.6 g/dL (3.2-4.8); Alkaline Phosphatase 171 U/L (46-116); Anion Gap 16 (5-15); Aspartate Aminotransferase 55 U/L (13-40); BUN/Creatinine Ratio 17.8 (10.0-20.0); Bilirubin, Total 0.7 mg/dL (0.2-1.0); Blood Urea Nitrogen 13 mg/dL (9-23); Carbon Dioxide 20 mmol/L (20-30); Chloride 93 mmol/L (98-107); Glucose 358 mg/dL (74-106); Potassium 4.7 mmol/L (3.5-5.1); Sodium 129 mmol/L (136-145); Total Protein 7.3 g/dL (5.7-8.2)
[2023-10-22 22:55] LABS: Basophils # (auto) 0.1 10 ^3/uL (0-0.2); Basophils % (auto) 1.3 % (0.0-2.0); Eosinophils # (auto) 0.1 10 ^3/uL (0-0.8); Eosinophils % (auto) 1.4 % (0.0-7.0); Hematocrit 49.9 % (41.0-53.0); Hemoglobin 16.7 g/dL (13.5-17.5); Lymphocytes # (auto) 2.1 10 ^3/uL (0.4-5.4); Mean Corpuscular Hemoglobin 31.9 pg (28.0-32.0); Mean Corpuscular Hgb Conc. 33.4 g/dL (32.0-36.0); Mean Corpuscular Volume 95.4 fL (80.0-100.0); Monocytes # (auto) 0.8 10 ^3/uL (0-1.3); Monocytes % (auto) 14.6 % (0.0-12.0); Neutrophils # (auto) 2.3 10 ^3/uL (1.6-8.6); Neutrophils % (auto) 43.7 % (37.0-80.0); Nucleated Red Blood Cells % 0.3 %; Red Blood Cells 5.23 10^6/uL (4.5-5.90); Red Cell Distribution Width 13.1 % (11.8-14.3); White Blood Cell 5.3 10^3/uL (4.4-10.8)
[2023-10-22 23:03] LABS: INR 1.01 (0.9-1.15); Partial Thromboplastin Time 31.6 SEC (24.5-34.5); Prothrombin Time 10.6 sec (9.3-11.8)
[2023-10-22 23:24] LABS: Base Excess -7.5 mmol/L (-2.0-2.0)
[2023-10-22] MEDS: SODIUM CHLORIDE 0.9% 1,000 ML IV SCH (23:30)
[2023-10-22 23:56] LABS: Lactic Acid w/Reflex 3.7 mmol/L (0.4-2.0)
[2023-10-23 00:09] LABS: Blood Alcohol 171.2 mg/dL (<10)
[2023-10-23 00:11] LABS: Phosphorus 3.9 mg/dL (2.4-5.1)
[2023-10-23] MEDS ORDERED: MAALOX PLUS or MAALOX 30 ML PO ONE (00:45)
[2023-10-23] MEDS ORDERED: VANCOMYCIN PER PHARMACY 0 MG IV SCH ×2 (00:45→23:15)
[2023-10-23] MEDS ORDERED: LIDOCAINE VISCOUS 2% 15ML UD PO ONE (00:45)
[2023-10-23] MEDS ORDERED: ONDANSETRON HCL 4 MG/2 ML VIAL IV ONE (00:45)
[2023-10-23] MEDS ORDERED: SODIUM BICARBONATE 8.4 % INJ 50ML VIAL IV ONE (00:45)
[2023-10-23] MEDS ORDERED: HYDROmorphone HCL 2 MG/ML VL/or syr IV ONE (00:45)
[2023-10-23] MEDS ORDERED: PANTOPRAZOLE 40 MG/10 ML VIAL INJ IV ONE (00:45)
[2023-10-23] MEDS ORDERED: SODIUM CHLORIDE 0.9% 2,100 ML IV ONE (00:45)
[2023-10-23 00:46] VITALS: PULSE 93; RESP 16; O2SAT 97
[2023-10-23] MEDS ORDERED: IOHEXOL 300 MG/ML 100ML BOTTLE IJ ONE (01:01)
[2023-10-23] MEDS: SODIUM CHLORIDE 0.9% 1,000 ML IV SCH ×4 (01:30→18:11)
[2023-10-23] MEDS: ACCU-CHEK COMFORT CURVE STRIP VI SCH ×8 (01:33→23:56)
[2023-10-23] MEDS: VANCOMYCIN 1GM/250ML 250 ML IV SCH ×2 (01:45→02:38)
[2023-10-23] MEDS ORDERED: cefTRIAXone 1GM/50ML D5W 50 ML IV ONE ×2 (01:54→02:00)
[2023-10-23 02:26] LABS: Lactic Acid w/Reflex 3.8 mmol/L (0.4-2.0)
[2023-10-23] MEDS ORDERED: InsuLIN REG 1unit/0.01ml Soln (100units/ml) IV ONE (03:00)
[2023-10-23] MEDS ORDERED: diphenhdrAMINE HCL 50 MG/1 ML VL IV ONE (03:30)
[2023-10-23] MEDS ORDERED: SODIUM CHLORIDE 0.9% 1,000 ML IV ONE (04:30)
[2023-10-23 04:54] LABS: Chloride 98 mmol/L (98-107); Potassium 3.6 mmol/L (3.5-5.1); Sodium 132 mmol/L (136-145)
[2023-10-23 04:55] LABS: Anion Gap 13 (5-15); Calcium 7.9 mg/dL (8.5-10.1); Carbon Dioxide 21 mmol/L (20-30)
[2023-10-23 05:00] LABS: BUN/Creatinine Ratio 17.3 (10.0-20.0); Blood Urea Nitrogen 13 mg/dL (9-23); Glucose 400 mg/dL (74-106)
[2023-10-23] MEDS ORDERED: MORPHINE SULFATE INJ 2 MG/ml SYRG IV PRN (05:00)
[2023-10-23] MEDS ORDERED: NITROGLYCERIN 0.4 MG SL TAB SL PRN (05:00)
[2023-10-23] MEDS ORDERED: ACETAMINOPHEN 325 MG TAB PO PRN (05:00)
[2023-10-23] MEDS ORDERED: ONDANSETRON HCL 4 MG/2 ML VIAL IV PRN (05:00)
[2023-10-23] MEDS ORDERED: DEXTROSE (50%) 50ML SYRG IV PRN ×2 (05:15→23:15)
[2023-10-23] MEDS ORDERED: LORazepam 2MG/ML-1ML VIAL IV PRN (05:15)
[2023-10-23 05:18] LABS: Amphetamine Screen, Urine Pos (NEGATIVE); Barbiturate Scree,Urine Neg (NEGATIVE); Benzodiazephine Screen, Urine Neg (NEGATIVE); Cannabinoid Screen, Urine Neg (NEGATIVE); Cocaine Screen, Urine Neg (NEGATIVE); Opiate Scree,Urine Neg (NEGATIVE); Phencyclidine Screen, Urine Neg (NEGATIVE)
[2023-10-23 05:25] LABS: Urine Bacteria NONE SEEN /hpf (None Seen); Urine Blood Negative /uL (Negative); Urine Clarity Clear (Clear); Urine Protein, UAD Negative (Negative); Urine Specific Gravity 1.034 (1.001-1.035); Urine Urobilinogen Normal (Negative); Urine WBC <1 /hpf (0 - 3)
[2023-10-23 05:26] LABS: Urine Color Straw (Yellow)
[2023-10-23] MEDS ORDERED: PIPERACILLIN-TAZOB 3.375GM 100 ML IV SCH (06:00)
[2023-10-23] MEDS: chlordiazePOXIDE HCL 25 MG CAP PO SCH ×3 (06:14→21:06)
[2023-10-23] MEDS: INSULIN LANTUS (GLARGINE) 1 /0.01ml (100units/ml) SC SCH ×2 (06:17→07:03)
[2023-10-23] MEDS: InsuLIN REG 1unit/0.01ml Soln (100units/ml) SC SCH ×4 (07:04→23:58)
[2023-10-23] MEDS ORDERED: VANCOMYCIN 1GM/250ML 250 ML IV ONE (09:00)
[2023-10-23] MEDS: MORPHINE SULFATE INJ 2 MG/ml SYRG IV PRN ×2 (09:37→21:11)
[2023-10-23 10:55] VITALS: PULSE 78; RESP 18; O2SAT 95
[2023-10-23 11:05] LABS: Base Excess -1.6 mmol/L (-2.0-2.0)
[2023-10-23 11:33] LABS: Chloride 101 mmol/L (98-107); Potassium 4.3 mmol/L (3.5-5.1); Sodium 134 mmol/L (136-145)
[2023-10-23 11:34] LABS: Anion Gap 6 (5-15); Calcium 8.3 mg/dL (8.5-10.1); Carbon Dioxide 27 mmol/L (20-30)
[2023-10-23 11:40] LABS: BUN/Creatinine Ratio 17.3 (10.0-20.0); Blood Urea Nitrogen 14 mg/dL (9-23)
[2023-10-23] MEDS: FOLIC ACID 1 MG, MULTIPLE VITAMIN 10 ML, MAGNESIUM SULF SDV 50% 8 MEQ, THIAMINE INJ 100... INJ SCH ×5 (12:00)
[2023-10-23 12:12] LABS: Glucose 291 mg/dL (74-106)
[2023-10-23 13:39] VITALS: BP 117/74; PULSE 80; RESP 20; TEMP 97.6; O2SAT 98
[2023-10-23 16:52] VITALS: BP 117/74; PULSE 80; RESP 20; TEMP 97.6; O2SAT 98
[2023-10-23 20:00] VITALS: PULSE 83; RESP 18
[2023-10-23 22:00] VITALS: BP 131/86; PULSE 82; RESP 18; TEMP 98.5; O2SAT 94
[2023-10-23] MEDS ORDERED: InsuLIN REG 1unit/0.01ml Soln (100units/ml) SC SCH (22:00)
[2023-10-23] MEDS ORDERED: INSULIN LANTUS (GLARGINE) 1 /0.01ml (100units/ml) SC ONE (23:15)
[2023-10-24] MEDS: SODIUM CHLORIDE 0.9% 1,000 ML IV SCH ×3 (02:43→15:07)
[2023-10-24 05:00] VITALS: BP 132/86; PULSE 68; RESP 18; TEMP 97.8; O2SAT 95
[2023-10-24] MEDS: ACCU-CHEK COMFORT CURVE STRIP VI SCH ×4 (05:25→23:14)
[2023-10-24] MEDS ORDERED: VANCOMYCIN 1GM/250ML 250 ML IV SCH (05:30)
[2023-10-24] MEDS: InsuLIN REG 1unit/0.01ml Soln (100units/ml) SC SCH ×4 (05:37→23:17)
[2023-10-24 07:23] LABS: Anion Gap 8 (5-15); Carbon Dioxide 28 mmol/L (20-30); Chloride 99 mmol/L (98-107); Potassium 3.9 mmol/L (3.5-5.1); Sodium 135 mmol/L (136-145)
[2023-10-24 07:24] LABS: Calcium 8.6 mg/dL (8.5-10.1)
[2023-10-24 07:29] LABS: BUN/Creatinine Ratio 18.2 (10.0-20.0); Blood Urea Nitrogen 14 mg/dL (9-23); Glucose 303 mg/dL (74-106)
[2023-10-24 07:31] LABS: Basophils # (auto) 0 10 ^3/uL (0-0.2); Basophils % (auto) 0.7 % (0.0-2.0); Eosinophils # (auto) 0 10 ^3/uL (0-0.8); Eosinophils % (auto) 1.1 % (0.0-7.0); Hematocrit 44.6 % (41.0-53.0); Hemoglobin 15.3 g/dL (13.5-17.5); Lymphocytes # (auto) 1.2 10 ^3/uL (0.4-5.4); Lymphocytes % (auto) 29.6 % (10.0-50.0); Mean Corpuscular Hemoglobin 32.4 pg (28.0-32.0); Mean Corpuscular Hgb Conc. 34.3 g/dL (32.0-36.0); Mean Corpuscular Volume 94.2 fL (80.0-100.0); Monocytes # (auto) 0.6 10 ^3/uL (0-1.3); Monocytes % (auto) 16.3 % (0.0-12.0); Neutrophils # (auto) 2.1 10 ^3/uL (1.6-8.6); Neutrophils % (auto) 52.3 % (37.0-80.0); Nucleated Red Blood Cells % 0.1 %; Red Blood Cells 4.74 10^6/uL (4.5-5.90); Red Cell Distribution Width 12.8 % (11.8-14.3)
[2023-10-24 08:00] VITALS: PULSE 71
[2023-10-24 09:00] VITALS: BP 120/62; PULSE 71; RESP 16; TEMP 97.9; O2SAT 96
[2023-10-24] MEDS: chlordiazePOXIDE HCL 25 MG CAP PO SCH ×2 (10:26→21:48)
[2023-10-24] MEDS: INSULIN LANTUS (GLARGINE) 1 /0.01ml (100units/ml) SC SCH ×2 (10:28→23:17)
[2023-10-24] MEDS: HYDROcodone-ACET 5/325MG TAB PO PRN ×2 (12:01→21:59)
[2023-10-24 13:00] VITALS: BP 129/84; PULSE 74; RESP 18; TEMP 98.5; O2SAT 93
[2023-10-24] MEDS: FOLIC ACID 1 MG, MULTIPLE VITAMIN 10 ML, MAGNESIUM SULF SDV 50% 8 MEQ, THIAMINE INJ 100... INJ SCH ×5 (13:37)
[2023-10-24] MEDS: VANCOMYCIN 1GM/250ML 250 ML IV SCH (15:07)
[2023-10-24 16:00] VITALS: BP 124/78; PULSE 66; RESP 16; TEMP 98.8; O2SAT 96
[2023-10-24 20:00] VITALS: PULSE 76
[2023-10-25] MEDS: VANCOMYCIN 1GM/250ML 250 ML IV SCH ×2 (01:02→11:22)
[2023-10-25 05:00] VITALS: BP 102/69; PULSE 79; RESP 16; TEMP 97.5; O2SAT 93
[2023-10-25] MEDS: ACCU-CHEK COMFORT CURVE STRIP VI SCH ×2 (05:31→11:50)
[2023-10-25] MEDS: InsuLIN REG 1unit/0.01ml Soln (100units/ml) SC SCH ×2 (05:42→11:58)
[2023-10-25 07:54] LABS: Anion Gap 9 (5-15); Carbon Dioxide 25 mmol/L (20-30); Chloride 102 mmol/L (98-107); Potassium 3.8 mmol/L (3.5-5.1); Sodium 136 mmol/L (136-145)
[2023-10-25 08:00] VITALS: PULSE 72
[2023-10-25 08:00] LABS: Blood Urea Nitrogen 13 mg/dL (9-23)
[2023-10-25 08:01] LABS: Glucose 137 mg/dL (74-106)
[2023-10-25 09:00] VITALS: BP 122/81; PULSE 86; RESP 19; TEMP 97.8; O2SAT 98
[2023-10-25] MEDS: INSULIN LANTUS (GLARGINE) 1 /0.01ml (100units/ml) SC SCH (09:51)
[2023-10-25] MEDS ORDERED: chlordiazePOXIDE HCL 25 MG CAP PO SCH (10:00)
[2023-10-25 13:13] VITALS: BP 132/80; PULSE 94; RESP 19; TEMP 98.4; O2SAT 96
[2023-10-25] MEDS: FOLIC ACID 1 MG, MULTIPLE VITAMIN 10 ML, MAGNESIUM SULF SDV 50% 8 MEQ, THIAMINE INJ 100... INJ SCH ×5 (13:40)
[2023-10-25] MEDS ORDERED: VANCOMYCIN 1GM/250ML 250 ML IV SCH (19:00)
[2023-10-26] MEDS ORDERED: chlordiazePOXIDE HCL 25 MG CAP PO SCH (07:00)
[2023-10-26 09:29] LABS: Hepatitis B Surface Antigen Negative (Negative)
[2023-10-26 09:50] LABS: Hepatitis A Ab IgM Negative
[2023-10-26 09:51] LABS: Hepatitis B Core IgM Negative; Hepatitis C Antibody Negative (Negative)
== END 2023-10-25 16:05 | disposition left against medical advice (07) | DRG 720 ==
LOC: ER 21:56 → EDBD 21:56 → TELE 10-23 04:46 → TELE-WESTW 10-23 13:34
PROVIDERS: ADMIT Internal Medicine; ATTEND Student in an Organized Health Care Education/Training Program
DX: A41.1 Sepsis due to other specified staphylococcus (principal); E10.10 Type 1 diabetes mellitus with ketoacidosis without coma; K70.10 Alcoholic hepatitis without ascites; G89.4 Chronic pain syndrome; F15.10 Other stimulant abuse, uncomplicated; F41.9 Anxiety disorder, unspecified; F32.A Depression, unspecified; R74.01 Elevation of levels of liver transaminase levels; F10.229 Alcohol dependence with intoxication, unspecified; Y90.9 Presence of alcohol in blood, level not specified; E10.65 Type 1 diabetes mellitus with hyperglycemia; T38.3X6A Underdosing of insulin and oral hypoglycemic [antidiabetic] drugs, initial encounter; K29.20 Alcoholic gastritis without bleeding; K31.84 Gastroparesis; Z91.148 Patient's other noncompliance with medication regimen for other reason; Z59.00 Homelessness unspecified; Z88.0 Allergy status to penicillin; Z88.8 Allergy status to other drugs, medicaments and biological substances
CPT/HCPCS: 36415; 36600; 74177; 80048; 80053; 80074; 80202; 80307; 80320; 81001; 82010; 82805; 82962; 83036; 83605; 83735; 83880; 83930; 84100; 84443; 84484; 85025; 85610; 85730; 86850; 86900; 86901; 87040; 87077; 87081; 87186; 96361; 96365; 96366; 96368; 96372; 96375; 96376; C9113; G0378; J0696; J1815; J2405

== ENCOUNTER 2023-12-20 11:58 | Inpatient (IN) | payer MEDICAID ==
[~2023-12-20] VITALS: Ht 175.3 cm; Wt 68.1 kg
[2023-12-20 12:17] VITALS: PULSE 98; RESP 18; O2SAT 95
[2023-12-20] MEDS ORDERED: SODIUM CHLORIDE 0.9% 1,000 ML IV ONE ×4 (12:30→17:45)
[2023-12-20 12:56] LABS: Basophils # (auto) 0.1 10 ^3/uL (0-0.2); Basophils % (auto) 1.3 % (0.0-2.0); Eosinophils # (auto) 0 10 ^3/uL (0-0.8); Eosinophils % (auto) 0.7 % (0.0-7.0); Hematocrit 47.1 % (41.0-53.0); Hemoglobin 15.6 g/dL (13.5-17.5); Lymphocytes # (auto) 1.6 10 ^3/uL (0.4-5.4); Lymphocytes % (auto) 31.9 % (10.0-50.0); Mean Corpuscular Hemoglobin 32.2 pg (28.0-32.0); Mean Corpuscular Hgb Conc. 33.2 g/dL (32.0-36.0); Monocytes # (auto) 0.7 10 ^3/uL (0-1.3); Monocytes % (auto) 14.5 % (0.0-12.0); Neutrophils # (auto) 2.5 10 ^3/uL (1.6-8.6); Neutrophils % (auto) 51.6 % (37.0-80.0); Nucleated Red Blood Cells % 0.1 %; Red Blood Cells 4.86 10^6/uL (4.5-5.90); Red Cell Distribution Width 13.1 % (11.8-14.3); White Blood Cell 4.9 10^3/uL (4.4-10.8)
[2023-12-20 13:12] LABS: Alanine Aminotransferase 55 U/L (7-40); Albumin 4.7 g/dL (3.2-4.8); Alkaline Phosphatase 140 U/L (46-116); Anion Gap 22 (5-15); Aspartate Aminotransferase 41 U/L (13-40); BUN/Creatinine Ratio 16.3 (10.0-20.0); Blood Urea Nitrogen 17 mg/dL (9-23); Calcium 9.3 mg/dL (8.5-10.1); Carbon Dioxide 14 mmol/L (20-30); Chloride 94 mmol/L (98-107); Potassium 5.1 mmol/L (3.5-5.1); Sodium 130 mmol/L (136-145)
[2023-12-20 13:13] LABS: Bilirubin, Total 0.6 mg/dL (0.2-1.0); Total Protein 7.1 g/dL (5.7-8.2)
[2023-12-20 13:47] LABS: Glucose 448 mg/dL (74-106)
[2023-12-20] MEDS ORDERED: InsuLIN REG 1unit/0.01ml Soln (100units/ml) IV ONE ×2 (14:15→16:45)
[2023-12-20 15:55] LABS: Base Excess -13.6 mmol/L (-2.0-2.0)
[2023-12-20 17:05] LABS: Urine Bacteria NONE SEEN /hpf (None Seen); Urine Blood Negative /uL (Negative); Urine Clarity Clear (Clear); Urine Color Colorless (Yellow); Urine Protein, UAD Negative (Negative); Urine Specific Gravity 1.022 (1.001-1.035); Urine Urobilinogen Normal (Negative); Urine WBC 1 /hpf (0 - 3)
[2023-12-20 18:39] LABS: Potassium 3.8 mmol/L (3.5-5.1); Sodium 137 mmol/L (136-145)
[2023-12-20 18:40] LABS: Anion Gap 11 (5-15); Calcium 7.9 mg/dL (8.7-10.4); Carbon Dioxide 18 mmol/L (20-30)
[2023-12-20 18:45] LABS: BUN/Creatinine Ratio 12.5 (10.0-20.0); Blood Urea Nitrogen 10 mg/dL (9-23)
[2023-12-20] MEDS ORDERED: HYDROmorphone HCL 2 MG/ML VL/or syr IV PRN (18:45)
[2023-12-20] MEDS ORDERED: INSULIN LANTUS (GLARGINE) 1 /0.01ml (100units/ml) SC ONE (18:45)
[2023-12-20] MEDS ORDERED: DEXTROSE (50%) 50ML SYRG IV PRN (18:45)
[2023-12-20] MEDS ORDERED: ONDANSETRON HCL 4 MG/2 ML VIAL IV PRN (18:45)
[2023-12-20] MEDS ORDERED: INSULIN DRIP 100 UNIT/100ML 100 ML IV SCH (18:45)
[2023-12-20] MEDS ORDERED: ACETAMINOPHEN 325 MG TAB PO PRN (18:45)
[2023-12-20 18:47] LABS: Chloride 108 mmol/L (98-107); Glucose 223 mg/dL (74-106)
[2023-12-20] MEDS: ACCU-CHEK COMFORT CURVE STRIP VI SCH ×3 (20:03→23:17)
[2023-12-20 20:22] LABS: Chloride 106 mmol/L (98-107); Potassium 4.3 mmol/L (3.5-5.1); Sodium 134 mmol/L (136-145)
[2023-12-20 20:23] LABS: Anion Gap 9 (5-15); Carbon Dioxide 19 mmol/L (20-30)
[2023-12-20 20:24] LABS: Calcium 8.4 mg/dL (8.5-10.1)
[2023-12-20 20:28] LABS: BUN/Creatinine Ratio 9.5 (10.0-20.0); Blood Urea Nitrogen 9 mg/dL (9-23); Glucose 267 mg/dL (74-106)
[2023-12-20 20:43] VITALS: PULSE 79; RESP 20; O2SAT 96
[2023-12-20] MEDS: SODIUM CHLOR 0.9% PF (SALINE LOCK) 10ML VIAL/SYR IV SCH (22:06)
[2023-12-20 23:43] LABS: Chloride 108 mmol/L (98-107); Potassium 3.9 mmol/L (3.5-5.1); Sodium 135 mmol/L (136-145)
[2023-12-20 23:44] LABS: Anion Gap 5 (5-15); Calcium 7.9 mg/dL (8.7-10.4); Carbon Dioxide 22 mmol/L (20-30)
[2023-12-20 23:49] LABS: Blood Urea Nitrogen 9 mg/dL (9-23); Glucose 177 mg/dL (74-106)
[2023-12-21] MEDS ORDERED: DEXTROSE (50%) 50ML SYRG IV PRN ×3 (00:45→23:30)
[2023-12-21 03:53] LABS: Chloride 107 mmol/L (98-107); Potassium 3.8 mmol/L (3.5-5.1); Sodium 137 mmol/L (136-145)
[2023-12-21 03:54] LABS: Anion Gap 7 (5-15); Carbon Dioxide 23 mmol/L (20-30)
[2023-12-21 03:55] LABS: Calcium 8.1 mg/dL (8.7-10.4)
[2023-12-21 03:59] LABS: BUN/Creatinine Ratio 15.5 (10.0-20.0); Blood Urea Nitrogen 9 mg/dL (9-23)
[2023-12-21 04:02] LABS: Glucose 68 mg/dL (74-106)
[2023-12-21] MEDS: ACCU-CHEK COMFORT CURVE STRIP VI SCH ×6 (05:06→21:55)
[2023-12-21] MEDS: InsuLIN REG 1unit/0.01ml Soln (100units/ml) SC SCH ×5 (05:18→22:13)
[2023-12-21 05:32] LABS: Chloride 105 mmol/L (98-107); Potassium 3.8 mmol/L (3.5-5.1); Sodium 137 mmol/L (136-145)
[2023-12-21 05:33] LABS: Anion Gap 8 (5-15); Carbon Dioxide 24 mmol/L (20-30)
[2023-12-21 05:34] LABS: Calcium 8.2 mg/dL (8.7-10.4)
[2023-12-21 05:38] LABS: BUN/Creatinine Ratio 14.1 (10.0-20.0); Blood Urea Nitrogen 9 mg/dL (9-23); Glucose 139 mg/dL (74-106)
[2023-12-21] MEDS: SODIUM CHLOR 0.9% PF (SALINE LOCK) 10ML VIAL/SYR IV SCH ×3 (06:49→21:55)
[2023-12-21] MEDS: ENOXAPARIN SOD 40 MG/0.4 ML SYRINGE SC SCH (10:15)
[2023-12-21] MEDS: INSULIN LANTUS (GLARGINE) 1 /0.01ml (100units/ml) SC SCH (10:15)
[2023-12-21] MEDS ORDERED: traMADol HCL 50 MG TAB PO PRN (11:00)
[2023-12-21] MEDS ORDERED: INSLANTI SC (11:18)
[2023-12-21] MEDS ORDERED: INSU1MIS36 XX (11:18)
[2023-12-21] MEDS ORDERED: INSREGI SC (11:18)
[2023-12-21] MEDS: LACTATED RINGER'S 1,000 ML IV SCH ×2 (12:24→21:00)
[2023-12-21 12:25] LABS: Chloride 102 mmol/L (98-107); Potassium 3.9 mmol/L (3.5-5.1); Sodium 133 mmol/L (136-145)
[2023-12-21 12:26] LABS: Anion Gap 6 (5-15); Calcium 8.6 mg/dL (8.5-10.1); Carbon Dioxide 25 mmol/L (20-30)
[2023-12-21 12:31] LABS: BUN/Creatinine Ratio 15.4 (10.0-20.0); Blood Urea Nitrogen 10 mg/dL (9-23)
[2023-12-21 12:44] LABS: Glucose 247 mg/dL (74-106)
[2023-12-21 17:07] VITALS: BP 107/77; PULSE 71; RESP 20; TEMP 97.4; O2SAT 98
[2023-12-21 20:00] VITALS: PULSE 71; RESP 17; O2SAT 98
[2023-12-21 23:31] VITALS: BP 122/85; PULSE 78; RESP 18; TEMP 98.1; O2SAT 96
[2023-12-22] MEDS: InsuLIN REG 1unit/0.01ml Soln (100units/ml) SC SCH ×4 (00:39→13:27)
[2023-12-22] MEDS: ACCU-CHEK COMFORT CURVE STRIP VI SCH ×4 (00:40→13:27)
[2023-12-22] MEDS: SODIUM CHLOR 0.9% PF (SALINE LOCK) 10ML VIAL/SYR IV SCH ×2 (04:57→13:35)
[2023-12-22] MEDS: LACTATED RINGER'S 1,000 ML IV SCH (04:58)
[2023-12-22 05:10] VITALS: BP 128/75; PULSE 88; RESP 18; TEMP 98; O2SAT 97
[2023-12-22 07:30] VITALS: PULSE 88; RESP 18; O2SAT 98
[2023-12-22 09:00] VITALS: BP 122/82; PULSE 77; RESP 16; TEMP 97.9; O2SAT 95
[2023-12-22] MEDS: INSULIN LANTUS (GLARGINE) 1 /0.01ml (100units/ml) SC SCH (11:14)
[2023-12-22] MEDS: ENOXAPARIN SOD 40 MG/0.4 ML SYRINGE SC SCH (11:15)
[2023-12-22 13:00] VITALS: BP 120/78; PULSE 81; RESP 20; TEMP 98.6; O2SAT 98
== END 2023-12-22 13:40 | disposition home or self-care (01) | DRG 420 ==
LOC: EDBD 11:58 → ER 11:58 → CENTRAL 18:38 → TELE 18:38 → CENTRAL 12-21 16:44 → TELE-CENTR 12-21 16:45 → CENTRAL 12-21 22:23
PROVIDERS: ADMIT Internal Medicine; ATTEND Nurse Practitioner Acute Care
DX: E11.10 Type 2 diabetes mellitus with ketoacidosis without coma (principal); E87.5 Hyperkalemia; F32.A Depression, unspecified; F41.9 Anxiety disorder, unspecified; F17.210 Nicotine dependence, cigarettes, uncomplicated; F19.10 Other psychoactive substance abuse, uncomplicated; Z91.148 Patient's other noncompliance with medication regimen for other reason; I25.2 Old myocardial infarction; Z59.00 Homelessness unspecified; Z88.1 Allergy status to other antibiotic agents; Z88.0 Allergy status to penicillin; Z79.4 Long term (current) use of insulin; Z83.3 Family history of diabetes mellitus; Z91.199 Patient's noncompliance with other medical treatment and regimen due to unspecified reason
CPT/HCPCS: 36415; 36600; 71045; 80048; 80053; 81001; 82010; 82805; 82962; 83036; 83605; 83690; 83735; 85025; 93005; 96361; 96365; 96372; 96375; 96376; 99291; G0378; J1815

== ENCOUNTER 2024-01-22 11:34 | Inpatient (IN) | payer MEDICAID ==
[~2024-01-22] VITALS: Ht 170.2 cm; Wt 64.5 kg
[~2024-01-22 11:34] MED LIST changes: +INSU1MIS36 XX
[2024-01-22 12:00] VITALS: PULSE 69; RESP 13; O2SAT 99
[2024-01-22 12:13] LABS: Basophils # (auto) 0.1 10 ^3/uL (0-0.2); Basophils % (auto) 0.8 % (0.0-2.0); Eosinophils # (auto) 0 10 ^3/uL (0-0.8); Eosinophils % (auto) 0.4 % (0.0-7.0); Hematocrit 51.8 % (41.0-53.0); Hemoglobin 17.3 g/dL (13.5-17.5); Lymphocytes # (auto) 1.7 10 ^3/uL (0.4-5.4); Lymphocytes % (auto) 24.8 % (10.0-50.0); Mean Corpuscular Hemoglobin 31.6 pg (28.0-32.0); Mean Corpuscular Hgb Conc. 33.4 g/dL (32.0-36.0); Mean Corpuscular Volume 94.8 fL (80.0-100.0); Monocytes # (auto) 0.9 10 ^3/uL (0-1.3); Monocytes % (auto) 12.7 % (0.0-12.0); Neutrophils # (auto) 4.2 10 ^3/uL (1.6-8.6); Neutrophils % (auto) 61.3 % (37.0-80.0); Nucleated Red Blood Cells % 0.2 %; Red Blood Cells 5.47 10^6/uL (4.5-5.90); Red Cell Distribution Width 13.3 % (11.8-14.3); White Blood Cell 6.9 10^3/uL (4.4-10.8)
[2024-01-22] MEDS: ONDANSETRON HCL 4 MG/2 ML VIAL IV ONE (12:13)
[2024-01-22] MEDS: LACTATED RINGER'S 2,000 ML IV ONE (12:14)
[2024-01-22 12:30] LABS: Base Excess -11.1 mmol/L (-2.0-2.0)
[2024-01-22 12:34] LABS: Alanine Aminotransferase 98 U/L (7-40); Albumin 4.5 g/dL (3.2-4.8); Alkaline Phosphatase 143 U/L (46-116); Anion Gap 19 (5-15); Aspartate Aminotransferase 161 U/L (13-40); BUN/Creatinine Ratio 11.6 (10.0-20.0); Bilirubin, Total 1.1 mg/dL (0.2-1.0); Blood Urea Nitrogen 10 mg/dL (9-23); Calcium 9.2 mg/dL (8.7-10.4); Carbon Dioxide 17 mmol/L (20-30); Chloride 94 mmol/L (98-107); Glucose 345 mg/dL (74-106); Lipase 26 U/L (12-53); Magnesium 2.1 mg/dL (1.6-2.6); Potassium 4.9 mmol/L (3.5-5.1); Sodium 130 mmol/L (136-145); Total Protein 7.3 g/dL (5.7-8.2)
[2024-01-22] MEDS ORDERED: DEXTROSE (50%) 50ML SYRG IV PRN ×3 (13:15→21:30)
[2024-01-22 13:22] LABS: Blood Alcohol 3.5 mg/dL (<10)
[2024-01-22] MEDS: ACCU-CHEK COMFORT CURVE STRIP VI SCH ×2 (13:46→16:32)
[2024-01-22] MEDS: INSULIN DRIP 100 UNIT/100ML 100 ML IV SCH (13:51)
[2024-01-22] MEDS: SODIUM CHLORIDE 0.9% 1,000 ML IV SCH (14:54)
[2024-01-22 14:59] LABS: Urine WBC None Seen /hpf (0 - 3)
[2024-01-22 15:21] LABS: Amphetamine Screen, Urine Pos (NEGATIVE); Barbiturate Scree,Urine Neg (NEGATIVE); Benzodiazephine Screen, Urine Neg (NEGATIVE)
[2024-01-22 15:22] LABS: Cannabinoid Screen, Urine Neg (NEGATIVE); Cocaine Screen, Urine Neg (NEGATIVE); Opiate Scree,Urine Neg (NEGATIVE); Phencyclidine Screen, Urine Neg (NEGATIVE)
[2024-01-22 15:24] LABS: Urine Bacteria NONE SEEN /hpf (None Seen); Urine Blood Negative /uL (Negative); Urine Clarity Clear (Clear); Urine Color Colorless (Yellow); Urine Protein, UAD Negative (Negative); Urine Specific Gravity 1.027 (1.001-1.035); Urine Urobilinogen Normal (Negative)
[2024-01-22] MEDS ORDERED: DOCUSATE SOD 100 MG CAP PO PRN (15:45)
[2024-01-22] MEDS ORDERED: ALPRAZolam 0.25 MG TAB PO PRN (15:45)
[2024-01-22] MEDS ORDERED: ONDANSETRON HCL 4 MG/2 ML VIAL IV PRN (15:45)
[2024-01-22] MEDS ORDERED: MORPHINE SULFATE INJ 2 MG/ml SYRG IV PRN (15:45)
[2024-01-22] MEDS: D5W/SOD CHLO 0.9% 1,000 ML IV SCH ×2 (16:33→21:35)
[2024-01-22 16:38] LABS: Magnesium 1.6 mg/dL (1.6-2.6)
[2024-01-22] MEDS: INSULIN LANTUS (GLARGINE) 1 /0.01ml (100units/ml) SC ONE (16:38)
[2024-01-22 16:39] LABS: Phosphorus 3.1 mg/dL (2.4-5.1)
[2024-01-22 16:43] LABS: INR 1.05 (0.9-1.15)
[2024-01-22 16:46] LABS: Base Excess -4.5 mmol/L (-2.0-2.0)
[2024-01-22] MEDS ORDERED: SODIUM CHLORIDE 0.9% 1,000 ML IV SCH ×2 (17:15→19:15)
[2024-01-22 19:24] LABS: Chloride 102 mmol/L (98-107); Potassium 3.8 mmol/L (3.5-5.1); Sodium 136 mmol/L (136-145)
[2024-01-22 19:25] LABS: Anion Gap 7 (5-15); Calcium 9.2 mg/dL (8.5-10.1); Carbon Dioxide 27 mmol/L (20-30)
[2024-01-22 19:30] LABS: BUN/Creatinine Ratio 19.7 (10.0-20.0); Blood Urea Nitrogen 14 mg/dL (9-23)
[2024-01-22 19:32] LABS: Glucose 156 mg/dL (74-106)
[2024-01-22 19:44] VITALS: PULSE 80; RESP 12; O2SAT 98
[2024-01-23] VITALS (7 sets, daily range): BP systolic 106–129; BP diastolic 63–78; PULSE 70–75; RESP 16–19; TEMP 97.5–98.1; O2SAT 96–100
[2024-01-23] MEDS: ACCU-CHEK COMFORT CURVE STRIP VI SCH (00:41)
[2024-01-23] MEDS: InsuLIN REG 1unit/0.01ml Soln (100units/ml) SC SCH (00:51)
[2024-01-23 05:35] LABS: Basophils # (auto) 0 10 ^3/uL (0-0.2); Basophils % (auto) 0.8 % (0.0-2.0); Eosinophils # (auto) 0 10 ^3/uL (0-0.8); Eosinophils % (auto) 0.8 % (0.0-7.0); Hematocrit 46.7 % (41.0-53.0); Hemoglobin 15.7 g/dL (13.5-17.5); Lymphocytes # (auto) 1.4 10 ^3/uL (0.4-5.4); Lymphocytes % (auto) 26.4 % (10.0-50.0); Mean Corpuscular Hemoglobin 31.2 pg (28.0-32.0); Mean Corpuscular Hgb Conc. 33.7 g/dL (32.0-36.0); Mean Corpuscular Volume 92.5 fL (80.0-100.0); Monocytes # (auto) 0.8 10 ^3/uL (0-1.3); Monocytes % (auto) 15.7 % (0.0-12.0); Neutrophils # (auto) 2.9 10 ^3/uL (1.6-8.6); Neutrophils % (auto) 56.3 % (37.0-80.0); Nucleated Red Blood Cells % 0.2 %; Red Blood Cells 5.05 10^6/uL (4.5-5.90); White Blood Cell 5.2 10^3/uL (4.4-10.8)
[2024-01-23 05:59] LABS: Alanine Aminotransferase 72 U/L (7-40); Albumin 3.9 g/dL (3.2-4.8); Alkaline Phosphatase 120 U/L (46-116); Anion Gap 11 (5-15); Aspartate Aminotransferase 82 U/L (13-40); Bilirubin, Total 0.8 mg/dL (0.2-1.0); Blood Urea Nitrogen 12 mg/dL (9-23); Calcium 8.9 mg/dL (8.5-10.1); Carbon Dioxide 24 mmol/L (20-30); Chloride 101 mmol/L (98-107); Glucose 123 mg/dL (74-106); Sodium 136 mmol/L (136-145); Total Protein 6.2 g/dL (5.7-8.2)
[2024-01-23] MEDS: INSULIN LANTUS (GLARGINE) 1 /0.01ml (100units/ml) SC SCH (11:02)
[2024-01-23] MEDS: PANTOPRAZOLE 40 MG/10 ML VIAL INJ IV SCH (11:02)
[2024-01-24] VITALS (7 sets, daily range): BP systolic 104–126; BP diastolic 68–80; PULSE 65–73; RESP 17–18; TEMP 97.6–98.7; O2SAT 94–99
[2024-01-24 07:02] LABS: Alanine Aminotransferase 56 U/L (7-40); Albumin 3.7 g/dL (3.2-4.8); Alkaline Phosphatase 108 U/L (46-116); Anion Gap 6 (5-15); Aspartate Aminotransferase 50 U/L (13-40); BUN/Creatinine Ratio 15.5 (10.0-20.0); Blood Urea Nitrogen 11 mg/dL (9-23); Calcium 8.9 mg/dL (8.7-10.4); Carbon Dioxide 25 mmol/L (20-30); Chloride 104 mmol/L (98-107); Glucose 208 mg/dL (74-106); Potassium 3.6 mmol/L (3.5-5.1); Sodium 135 mmol/L (136-145)
[2024-01-24 07:03] LABS: Bilirubin, Total 0.6 mg/dL (0.2-1.0); Total Protein 5.9 g/dL (5.7-8.2)
[2024-01-24] MEDS: AZITHROMYCIN 250 MG TAB PO ONE (20:36)
[2024-01-25 05:00] VITALS: BP 112/76; PULSE 85; RESP 17; TEMP 98; O2SAT 98
[2024-01-25] MEDS: HYDROcodone-ACET 5/325MG TAB PO PRN (06:53)
[2024-01-25 08:00] VITALS: PULSE 68; PULSE 72; RESP 18; O2SAT 95
[2024-01-25] MEDS: AZITHROMYCIN 250 MG TAB PO SCH (08:58)
[2024-01-25 09:00] VITALS: BP 110/72; PULSE 75; RESP 17; TEMP 97.4; O2SAT 96
[2024-01-25] MEDS ORDERED: DEXTROSE (50%) 50ML SYRG IV PRN (10:45)
[2024-01-25] MEDS: ACCU-CHEK COMFORT CURVE STRIP VI SCH (11:33)
[2024-01-25] MEDS: InsuLIN REG 1unit/0.01ml Soln (100units/ml) SC SCH (11:34)
[2024-01-25] MEDS: NICOTINE 21MG/24 HR TOPICAL PATCH TD ONE (11:34)
[2024-01-25 12:30] VITALS: BP 120/70; PULSE 72; RESP 18; TEMP 97.5; O2SAT 97
[2024-01-25] MEDS ORDERED: InsuLIN REG 1unit/0.01ml Soln (100units/ml) SC SCH (22:00)
[2024-01-25] MEDS ORDERED: INSULIN LANTUS (GLARGINE) 1 /0.01ml (100units/ml) SC SCH (22:00)
[2024-01-26] MEDS ORDERED: NICOTINE 21MG/24 HR TOPICAL PATCH TD SCH (10:00)
== END 2024-01-25 16:00 | disposition left against medical advice (07) | DRG 420 ==
LOC: ER 11:34 → EDBD 11:34 → TELE 15:54 → TELE-WESTW 23:39 → WEST WING 01-25 10:47
PROVIDERS: ADMIT Nurse Practitioner Family; ATTEND Internal Medicine
DX: E10.10 Type 1 diabetes mellitus with ketoacidosis without coma (principal); F10.10 Alcohol abuse, uncomplicated; R00.0 Tachycardia, unspecified; R74.01 Elevation of levels of liver transaminase levels; J06.9 Acute upper respiratory infection, unspecified; H92.02 Otalgia, left ear; F41.9 Anxiety disorder, unspecified; F32.A Depression, unspecified; F17.210 Nicotine dependence, cigarettes, uncomplicated; R82.4 Acetonuria; F15.10 Other stimulant abuse, uncomplicated; Y90.9 Presence of alcohol in blood, level not specified; Z79.4 Long term (current) use of insulin; Z88.0 Allergy status to penicillin; Z88.1 Allergy status to other antibiotic agents; Z59.00 Homelessness unspecified; Z91.148 Patient's other noncompliance with medication regimen for other reason; Z91.199 Patient's noncompliance with other medical treatment and regimen due to unspecified reason
CPT/HCPCS: 36415; 36600; 80048; 80053; 80307; 80320; 81001; 82010; 82805; 82962; 83036; 83690; 83735; 83930; 84100; 85025; 85610; 87081; C9113; G0378; J1815; J2405; J7042

== ENCOUNTER 2024-01-30 21:38 | Inpatient (IN) | payer MEDICAID ==
[~2024-01-30] VITALS: Ht 165.1 cm; Wt 70.0 kg
[2024-01-30 22:54] LABS: Hematocrit 46.1 % (41.0-53.0); Hemoglobin 15.4 g/dL (13.5-17.5); Mean Corpuscular Hemoglobin 31.9 pg (28.0-32.0); Mean Corpuscular Hgb Conc. 33.4 g/dL (32.0-36.0); Mean Corpuscular Volume 95.6 fL (80.0-100.0); Red Blood Cells 4.83 10^6/uL (4.5-5.90); Red Cell Distribution Width 13.2 % (11.8-14.3); White Blood Cell 3.8 10^3/uL (4.4-10.8)
[2024-01-30 22:57] LABS: Band Neutrophils % (manual) 0; Basophils % (manual) 0 (0.0-2.0); Blast Cells 0; Eosinophils % (manual) 0 (0-7); Metamyelocytes % 0; Myelocytes % 0; Promyelocytes % 0; Reactive Lymphocytes 0
[2024-01-30 22:59] LABS: Alanine Aminotransferase 89 U/L (7-40); Albumin 4.3 g/dL (3.2-4.8); Alkaline Phosphatase 163 U/L (46-116); Anion Gap 20 (5-15); Aspartate Aminotransferase 92 U/L (13-40); BUN/Creatinine Ratio 8.3 (10.0-20.0); Blood Urea Nitrogen 9 mg/dL (9-23); Calcium 8.7 mg/dL (8.7-10.4); Carbon Dioxide 16 mmol/L (20-30); Magnesium 2.1 mg/dL (1.6-2.6); Potassium 4.7 mmol/L (3.5-5.1)
[2024-01-30 23:00] LABS: Bilirubin, Total 0.9 mg/dL (0.2-1.0)
[2024-01-30 23:11] LABS: Chloride 88 mmol/L (98-107); Sodium 124 mmol/L (136-145)
[2024-01-30 23:13] LABS: Base Excess -6.8 mmol/L (-2.0-2.0)
[2024-01-30 23:14] LABS: Glucose 729 mg/dL (74-106)
[2024-01-30 23:22] LABS: Lymphocytes % (manual) 28 (10.0-50.0); Monocytes % (manual) 24 (0-12)
[2024-01-30 23:23] LABS: Platelet Estimate Adequate
[2024-01-31 01:10] VITALS: PULSE 95; RESP 14; O2SAT 94
[2024-01-31] MEDS: SODIUM CHLORIDE 0.9% 2,000 ML IV ONE (01:27)
[2024-01-31] MEDS: METOCLOPRAMIDE HCL 5MG/ml INJ 2ml VIAL IV ONE (01:30)
[2024-01-31] MEDS ORDERED: ONDANSETRON HCL 4 MG/2 ML VIAL IV PRN (02:00)
[2024-01-31] MEDS ORDERED: DEXTROSE (50%) 50ML SYRG IV PRN ×2 (02:00→12:30)
[2024-01-31] MEDS ORDERED: ACETAMINOPHEN 325 MG TAB PO PRN (02:00)
[2024-01-31] MEDS ORDERED: DOCUSATE SOD 100 MG CAP PO PRN (02:00)
[2024-01-31] MEDS: ACCU-CHEK COMFORT CURVE STRIP VI SCH ×2 (03:00→17:23)
[2024-01-31 03:30] LABS: Base Excess -12.3 mmol/L (-2.0-2.0)
[2024-01-31 03:40] LABS: Magnesium 2.1 mg/dL (1.6-2.6)
[2024-01-31 03:42] LABS: Phosphorus 3.6 mg/dL (2.4-5.1)
[2024-01-31] MEDS: INSULIN LANTUS (GLARGINE) 1 /0.01ml (100units/ml) SC ONE (03:49)
[2024-01-31] MEDS: INSULIN DRIP 100 UNIT/100ML 100 ML IV SCH (03:56)
[2024-01-31] MEDS: SODIUM CHLORIDE 0.9% 1,000 ML IV SCH ×2 (03:57→13:45)
[2024-01-31 06:14] LABS: Urine WBC None Seen /hpf (0 - 3)
[2024-01-31 06:34] LABS: Urine Bacteria NONE SEEN /hpf (None Seen); Urine Blood Negative /uL (Negative); Urine Clarity Clear (Clear); Urine Protein, UAD Negative (Negative); Urine Specific Gravity 1.025 (1.001-1.035); Urine Urobilinogen Normal (Negative)
[2024-01-31 06:38] LABS: Urine Color Straw (Yellow)
[2024-01-31] MEDS ORDERED: NITROGLYCERIN 0.4 MG SL TAB SL PRN (06:45)
[2024-01-31] MEDS ORDERED: MORPHINE SULFATE INJ 2 MG/ml SYRG IV PRN (06:45)
[2024-01-31] MEDS: D5W/SOD CHL 0.45%/KCL 20MEQ 1,000 ML IV SCH (07:16)
[2024-01-31 07:42] VITALS: PULSE 81; RESP 12; O2SAT 96
[2024-01-31 07:43] LABS: Hemoglobin 13.2 g/dL (13.5-17.5); Mean Corpuscular Hemoglobin 31.3 pg (28.0-32.0); Mean Corpuscular Hgb Conc. 33.9 g/dL (32.0-36.0); Mean Corpuscular Volume 92.5 fL (80.0-100.0); Red Blood Cells 4.22 10^6/uL (4.5-5.90); Red Cell Distribution Width 13.4 % (11.8-14.3); White Blood Cell 4.8 10^3/uL (4.4-10.8)
[2024-01-31 07:49] LABS: Basophils % (manual) 0 (0.0-2.0); Blast Cells 0; Metamyelocytes % 0; Myelocytes % 0; Promyelocytes % 0
[2024-01-31] MEDS ORDERED: SODIUM CHLORIDE 0.9% 1,000 ML IV SCH (08:00)
[2024-01-31 08:01] LABS: Alanine Aminotransferase 63 U/L (7-40); Albumin 3.5 g/dL (3.2-4.8); Alkaline Phosphatase 120 U/L (46-116); Anion Gap 9 (5-15); Aspartate Aminotransferase 50 U/L (13-40); BUN/Creatinine Ratio 11.1 (10.0-20.0); Bilirubin, Total 0.5 mg/dL (0.2-1.0); Blood Urea Nitrogen 8 mg/dL (9-23); Calcium 7.6 mg/dL (8.5-10.1); Carbon Dioxide 20 mmol/L (20-30); Chloride 107 mmol/L (98-107); Potassium 3.6 mmol/L (3.5-5.1); Sodium 136 mmol/L (136-145); Total Protein 5.3 g/dL (5.7-8.2)
[2024-01-31 08:03] LABS: Glucose 183 mg/dL (74-106)
[2024-01-31 08:09] LABS: Band Neutrophils % (manual) 1; Eosinophils % (manual) 1 (0-7); Lymphocytes % (manual) 36 (10.0-50.0); Monocytes % (manual) 20 (0-12); Reactive Lymphocytes 3
[2024-01-31 08:10] LABS: Platelet Estimate Adequate; RBC Morphology Normal
[2024-01-31] MEDS: InsuLIN REG 1unit/0.01ml Soln (100units/ml) SC SCH ×2 (17:24→22:04)
[2024-01-31 20:51] VITALS: BP 102/61; PULSE 76; RESP 18; TEMP 98.2; O2SAT 96
[2024-01-31] MEDS: INSULIN LANTUS (GLARGINE) 1 /0.01ml (100units/ml) SC SCH (22:04)
[2024-01-31] MEDS: TEMAZEPAM 15 MG CAP PO ONE (23:29)
[2024-02-01] VITALS (7 sets, daily range): BP systolic 106–126; BP diastolic 72–90; PULSE 65–77; RESP 16–20; TEMP 36.6; O2SAT 94–100
[2024-02-01 05:39] LABS: Basophils # (auto) 0 10 ^3/uL (0-0.2); Basophils % (auto) 0.8 % (0.0-2.0); Eosinophils # (auto) 0.1 10 ^3/uL (0-0.8); Eosinophils % (auto) 1.5 % (0.0-7.0); Hematocrit 41.8 % (41.0-53.0); Hemoglobin 14.5 g/dL (13.5-17.5); Lymphocytes # (auto) 1.6 10 ^3/uL (0.4-5.4); Lymphocytes % (auto) 38.1 % (10.0-50.0); Mean Corpuscular Hemoglobin 32.1 pg (28.0-32.0); Mean Corpuscular Hgb Conc. 34.8 g/dL (32.0-36.0); Mean Corpuscular Volume 92.2 fL (80.0-100.0); Monocytes # (auto) 0.7 10 ^3/uL (0-1.3); Monocytes % (auto) 16.4 % (0.0-12.0); Neutrophils # (auto) 1.8 10 ^3/uL (1.6-8.6); Neutrophils % (auto) 43.2 % (37.0-80.0); Nucleated Red Blood Cells % 0.2 %; Red Blood Cells 4.54 10^6/uL (4.5-5.90); Red Cell Distribution Width 13.3 % (11.8-14.3); White Blood Cell 4.1 10^3/uL (4.4-10.8)
[2024-02-01 05:55] LABS: Alanine Aminotransferase 56 U/L (7-40); Albumin 3.5 g/dL (3.2-4.8); Alkaline Phosphatase 118 U/L (46-116); Anion Gap 6 (5-15); Aspartate Aminotransferase 50 U/L (13-40); BUN/Creatinine Ratio 18.6 (10.0-20.0); Blood Urea Nitrogen 13 mg/dL (9-23); Calcium 8.2 mg/dL (8.5-10.1); Carbon Dioxide 26 mmol/L (20-30); Chloride 106 mmol/L (98-107); Glucose 143 mg/dL (74-106); Potassium 3.4 mmol/L (3.5-5.1); Sodium 138 mmol/L (136-145)
[2024-02-01 05:56] LABS: Bilirubin, Total 0.5 mg/dL (0.2-1.0); Total Protein 5.3 g/dL (5.7-8.2)
[2024-02-01] MEDS ORDERED: INSULIN LANTUS (GLARGINE) 1 /0.01ml (100units/ml) SC SCH (10:00)
[2024-02-01] MEDS: HYDROcodone-ACET 5/325MG TAB PO PRN (22:30)
[2024-02-02 05:00] VITALS: BP 106/69; PULSE 59; RESP 17; TEMP 97.9; O2SAT 95
[2024-02-02 08:00] VITALS: PULSE 66; RESP 19; O2SAT 96
[2024-02-02 08:06] VITALS: BP 115/76; PULSE 66; RESP 19; TEMP 98.8
[2024-02-02 08:33] VITALS: BP 115/76; PULSE 66; RESP 19; TEMP 98.8; O2SAT 96
== END 2024-02-02 13:25 | disposition home or self-care (01) | DRG 420 ==
LOC: ER 21:38 → EDBD 21:38 → TELE 01-31 06:40 → EAST 01-31 06:40
PROVIDERS: ADMIT Nurse Practitioner Family; ATTEND Family Medicine
DX: E10.10 Type 1 diabetes mellitus with ketoacidosis without coma (principal); E86.0 Dehydration; F15.90 Other stimulant use, unspecified, uncomplicated; T38.3X6A Underdosing of insulin and oral hypoglycemic [antidiabetic] drugs, initial encounter; F41.9 Anxiety disorder, unspecified; F32.A Depression, unspecified; Z59.00 Homelessness unspecified; Z88.0 Allergy status to penicillin; Z88.8 Allergy status to other drugs, medicaments and biological substances; Z91.199 Patient's noncompliance with other medical treatment and regimen due to unspecified reason; Z79.4 Long term (current) use of insulin
CPT/HCPCS: 36415; 36600; 80053; 81001; 82010; 82805; 82962; 83735; 83930; 84100; 85007; 85025; 85027; 87081; G0378; J1815

== ENCOUNTER 2024-03-07 13:09 | Inpatient (IN) | payer MEDICAID ==
[~2024-03-07] VITALS: Ht 177.8 cm; Wt 69.3 kg
[2024-03-07 15:41] LABS: Basophils # (auto) 0 10 ^3/uL (0-0.2); Basophils % (auto) 0.8 % (0.0-2.0); Eosinophils # (auto) 0.1 10 ^3/uL (0-0.8); Eosinophils % (auto) 1.2 % (0.0-7.0); Hematocrit 45.7 % (41.0-53.0); Hemoglobin 15.5 g/dL (13.5-17.5); Lymphocytes # (auto) 1.4 10 ^3/uL (0.4-5.4); Lymphocytes % (auto) 24.9 % (10.0-50.0); Mean Corpuscular Hgb Conc. 33.8 g/dL (32.0-36.0); Mean Corpuscular Volume 94.6 fL (80.0-100.0); Monocytes # (auto) 0.7 10 ^3/uL (0-1.3); Monocytes % (auto) 12.8 % (0.0-12.0); Neutrophils # (auto) 3.3 10 ^3/uL (1.6-8.6); Neutrophils % (auto) 60.3 % (37.0-80.0); Nucleated Red Blood Cells % 0.1 %; Red Blood Cells 4.83 10^6/uL (4.5-5.90); Red Cell Distribution Width 13.5 % (11.8-14.3); White Blood Cell 5.6 10^3/uL (4.4-10.8)
[2024-03-07 16:01] LABS: Alanine Aminotransferase 93 U/L (7-40); Albumin 4.6 g/dL (3.2-4.8); Alkaline Phosphatase 150 U/L (46-116); Anion Gap 13 (5-15); Aspartate Aminotransferase 70 U/L (13-40); BUN/Creatinine Ratio 22.9 (10.0-20.0); Blood Urea Nitrogen 22 mg/dL (9-23); Calcium 10.1 mg/dL (8.7-10.4); Carbon Dioxide 25 mmol/L (20-30); Chloride 92 mmol/L (98-107); Potassium 4.9 mmol/L (3.5-5.1); Sodium 130 mmol/L (136-145)
[2024-03-07 16:02] LABS: Bilirubin, Total 0.9 mg/dL (0.2-1.0); Total Protein 7.1 g/dL (5.7-8.2)
[2024-03-07 16:25] LABS: Glucose 505 mg/dL (74-106)
[2024-03-07 19:55] VITALS: PULSE 81; RESP 20; O2SAT 98
[2024-03-07] MEDS: INSULIN LISPRO (HUMAN) 100 UNITS/ML ML SC ONE (20:06)
[2024-03-07] MEDS: SODIUM CHLORIDE 0.9% 1,000 ML IV ONE ×2 (20:13→23:42)
[2024-03-07] MEDS ORDERED: DEXTROSE (50%) 50ML SYRG IV PRN (22:15)
[2024-03-07] MEDS ORDERED: ONDANSETRON HCL 4 MG/2 ML VIAL IV PRN (22:15)
[2024-03-07 22:40] VITALS: PULSE 85; RESP 20; O2SAT 98
[2024-03-07] MEDS: SODIUM CHLORIDE 0.9% 1,000 ML IV SCH (23:42)
[2024-03-08] MEDS: ACCU-CHEK COMFORT CURVE STRIP VI SCH ×2 (00:44→11:56)
[2024-03-08 04:50] LABS: Urine Bacteria None Seen /hpf (None Seen)
[2024-03-08 04:52] LABS: Basophils # (auto) 0.1 10 ^3/uL (0-0.2); Basophils % (auto) 1.2 % (0.0-2.0); Eosinophils # (auto) 0.1 10 ^3/uL (0-0.8); Eosinophils % (auto) 2.1 % (0.0-7.0); Hematocrit 41.2 % (41.0-53.0); Hemoglobin 14.1 g/dL (13.5-17.5); Lymphocytes # (auto) 1.5 10 ^3/uL (0.4-5.4); Lymphocytes % (auto) 31.8 % (10.0-50.0); Mean Corpuscular Hemoglobin 31.9 pg (28.0-32.0); Mean Corpuscular Hgb Conc. 34.3 g/dL (32.0-36.0); Mean Corpuscular Volume 93.2 fL (80.0-100.0); Monocytes # (auto) 0.7 10 ^3/uL (0-1.3); Monocytes % (auto) 13.7 % (0.0-12.0); Neutrophils # (auto) 2.4 10 ^3/uL (1.6-8.6); Neutrophils % (auto) 51.2 % (37.0-80.0); Nucleated Red Blood Cells % 0.1 %; Red Blood Cells 4.42 10^6/uL (4.5-5.90); Red Cell Distribution Width 13.4 % (11.8-14.3); White Blood Cell 4.8 10^3/uL (4.4-10.8)
[2024-03-08 05:37] LABS: Urine Blood Negative /uL (Negative); Urine Clarity Clear (Clear); Urine Color Colorless (Yellow); Urine Protein, UAD Negative (Negative); Urine Specific Gravity 1.013 (1.001-1.035); Urine Urobilinogen Normal (Negative); Urine WBC <1 /hpf (0 - 3)
[2024-03-08 07:30] VITALS: PULSE 71; RESP 16; O2SAT 98
[2024-03-08 09:00] VITALS: BP 129/77; PULSE 73; RESP 18; TEMP 97.7; O2SAT 99
[2024-03-08 09:19] VITALS: PULSE 72; RESP 18; O2SAT 98
[2024-03-08] MEDS ORDERED: INSU1INJ19 SC (09:43)
[2024-03-08] MEDS ORDERED: DEXTROSE (50%) 50ML SYRG IV PRN (11:00)
[2024-03-08] MEDS: INSULIN LANTUS (GLARGINE) 1 /0.01ml (100units/ml) SC ONE (11:56)
[2024-03-08] MEDS: InsuLIN REG 1unit/0.01ml Soln (100units/ml) SC SCH ×3 (11:57→21:51)
[2024-03-08 13:00] VITALS: BP 130/86; PULSE 80; RESP 18; TEMP 97.6; O2SAT 97
[2024-03-08 17:00] VITALS: BP 131/77; PULSE 72; RESP 18; TEMP 98.4; O2SAT 98
[2024-03-08 21:00] VITALS: BP 128/73; PULSE 77; RESP 22; TEMP 98.1; O2SAT 96
[2024-03-08] MEDS: TEMAZEPAM 15 MG CAP PO PRN (21:48)
[2024-03-08] MEDS: INSULIN LANTUS (GLARGINE) 1 /0.01ml (100units/ml) SC SCH (21:52)
[2024-03-09 01:00] VITALS: BP 128/80; PULSE 80; RESP 17; TEMP 97.4; O2SAT 100
[2024-03-09 05:00] VITALS: BP 117/80; PULSE 78; RESP 20; TEMP 98.1; O2SAT 97
[2024-03-09 06:55] LABS: Anion Gap 6 (5-15); Carbon Dioxide 25 mmol/L (20-30); Chloride 103 mmol/L (98-107); Potassium 3.9 mmol/L (3.5-5.1); Sodium 134 mmol/L (136-145)
[2024-03-09 06:57] LABS: Calcium 8.8 mg/dL (8.5-10.1)
[2024-03-09 07:01] LABS: BUN/Creatinine Ratio 21.2 (10.0-20.0); Blood Urea Nitrogen 14 mg/dL (9-23)
[2024-03-09 07:20] LABS: Glucose 209 mg/dL (74-106)
[2024-03-09 08:05] VITALS: BP 143/81; PULSE 78; RESP 20; TEMP 98.4
[2024-03-09 09:00] VITALS: BP 143/81; PULSE 78; RESP 20; TEMP 98.4; O2SAT 96
[2024-03-09] MEDS ORDERED: INSLANTI SC (09:35)
[2024-03-09] MEDS ORDERED: INSU1MIS36 XX (09:35)
[2024-03-09] MEDS ORDERED: INSU1INJ19 SC (09:35)
[2024-03-09] MEDS ORDERED: BLOO1KIT60 XX (09:35)
[2024-03-09 12:34] VITALS: BP 143/81; PULSE 78; RESP 20; TEMP 98.4; O2SAT 96
[2024-03-09 13:00] VITALS: BP 137/91; PULSE 75; RESP 18; TEMP 98; O2SAT 98
[2024-03-09] MEDS ORDERED: INSREGI SC (13:22)
== END 2024-03-09 16:40 | disposition home or self-care (01) | DRG 420 ==
LOC: ER 13:09 → CENTRAL 22:09 → OVERFLOW 22:09 → CENTRAL 03-08 09:17
PROVIDERS: ADMIT Nurse Practitioner; ATTEND Internal Medicine Geriatric Medicine
DX: E10.10 Type 1 diabetes mellitus with ketoacidosis without coma (principal); F17.210 Nicotine dependence, cigarettes, uncomplicated; R74.01 Elevation of levels of liver transaminase levels; F32.A Depression, unspecified; Z79.4 Long term (current) use of insulin; Z59.00 Homelessness unspecified; Z88.0 Allergy status to penicillin; Z91.199 Patient's noncompliance with other medical treatment and regimen due to unspecified reason
CPT/HCPCS: 36415; 80048; 80053; 81001; 82010; 82962; 83880; 84484; 85025; 96360; 96372; G0378; J1815

== ENCOUNTER 2024-04-08 08:34 | Inpatient (IN) | payer MEDICAID ==
[~2024-04-08] VITALS: Ht 175.3 cm; Wt 80.0 kg
[~2024-04-08 08:34] MED LIST changes: +BLOO1KIT60 XX
[2024-04-08 09:15] VITALS: PULSE 99; RESP 14; O2SAT 95
[2024-04-08 10:11] LABS: Urine Bacteria None Seen /hpf (None Seen)
[2024-04-08] MEDS: METOCLOPRAMIDE HCL 5MG/ml INJ 2ml VIAL IV ONE (10:11)
[2024-04-08] MEDS: SODIUM CHLORIDE 0.9% 1,000 ML IVB ONE ×3 (10:12→19:02)
[2024-04-08 10:28] LABS: Urine Blood Negative /uL (Negative); Urine Clarity Clear (Clear); Urine Color Light-Yellow (Yellow); Urine Protein, UAD TRACE (Negative); Urine Specific Gravity 1.029 (1.001-1.035); Urine Urobilinogen Normal (Negative); Urine WBC <1 /hpf (0 - 3); Urine pH 5.5 (5.0-9.0)
[2024-04-08 10:28] LABS: Alanine Aminotransferase 98 U/L (7-40); Albumin 4.5 g/dL (3.2-4.8); Alkaline Phosphatase 160 U/L (46-116); Anion Gap 19 (5-15); Aspartate Aminotransferase 72 U/L (13-40); BUN/Creatinine Ratio 11.8 (10.0-20.0); Bilirubin, Total 0.7 mg/dL (0.2-1.0); Blood Urea Nitrogen 11 mg/dL (9-23); Calcium 9.2 mg/dL (8.5-10.1); Carbon Dioxide 16 mmol/L (20-30); Chloride 97 mmol/L (98-107); Glucose 325 mg/dL (74-106); Potassium 5.2 mmol/L (3.5-5.1); Sodium 132 mmol/L (136-145)
[2024-04-08 10:47] LABS: Basophils # (auto) 0.1 10 ^3/uL (0-0.2); Basophils % (auto) 1.5 % (0.0-2.0); Eosinophils # (auto) 0 10 ^3/uL (0-0.8); Eosinophils % (auto) 0.7 % (0.0-7.0); Hematocrit 48.3 % (41.0-53.0); Lymphocytes % (auto) 19.9 % (10.0-50.0); Mean Corpuscular Hemoglobin 31.5 pg (28.0-32.0); Mean Corpuscular Hgb Conc. 33.2 g/dL (32.0-36.0); Mean Corpuscular Volume 94.6 fL (80.0-100.0); Monocytes # (auto) 0.6 10 ^3/uL (0-1.3); Monocytes % (auto) 11.4 % (0.0-12.0); Neutrophils # (auto) 3.4 10 ^3/uL (1.6-8.6); Neutrophils % (auto) 66.5 % (37.0-80.0); Nucleated Red Blood Cells % 0.3 %; White Blood Cell 5.1 10^3/uL (4.4-10.8)
[2024-04-08 11:25] LABS: Lipase 30 U/L (12-53); Magnesium 1.8 mg/dL (1.6-2.6)
[2024-04-08] MEDS: InsuLIN REG 1unit/0.01ml Soln (100units/ml) IV ONE ×2 (13:19→19:07)
[2024-04-08] MEDS ORDERED: NITROGLYCERIN 0.4 MG SL TAB SL PRN (16:30)
[2024-04-08] MEDS ORDERED: MORPHINE SULFATE 4 MG/ML SYR/VIAL IV PRN (16:45)
[2024-04-08] MEDS: ACCU-CHEK COMFORT CURVE STRIP VI SCH ×2 (17:00→19:08)
[2024-04-08] MEDS ORDERED: DEXTROSE (50%) 50ML SYRG IV PRN ×2 (17:00→17:15)
[2024-04-08] MEDS ORDERED: InsuLIN REG 1unit/0.01ml Soln (100units/ml) SC SCH (17:00)
[2024-04-08 18:02] LABS: Chloride 95 mmol/L (98-107); Sodium 128 mmol/L (136-145)
[2024-04-08 18:03] LABS: Anion Gap 14 (5-15); Carbon Dioxide 19 mmol/L (20-30)
[2024-04-08 18:04] LABS: Calcium 8.9 mg/dL (8.7-10.4)
[2024-04-08 18:08] LABS: BUN/Creatinine Ratio 9.2 (10.0-20.0); Blood Urea Nitrogen 12 mg/dL (9-23)
[2024-04-08 18:40] LABS: Glucose 540 mg/dL (74-106)
[2024-04-08] MEDS: INSULIN LANTUS (GLARGINE) 1 /0.01ml (100units/ml) SC ONE (19:06)
[2024-04-08] MEDS: INSULIN DRIP 100 UNIT/100ML 100 ML IV SCH (19:30)
[2024-04-08] MEDS: SODIUM CHLORIDE 0.9% 1,000 ML IV SCH (19:32)
[2024-04-08 19:35] VITALS: PULSE 73; RESP 14; O2SAT 96
[2024-04-08] MEDS: InsuLIN REG 1unit/0.01ml Soln (100units/ml) SC SCH (22:00)
[2024-04-09] VITALS (16 sets, daily range): BP systolic 103–126; BP diastolic 69–82; PULSE 64–90; RESP 11–18; TEMP 97.6–98.6; O2SAT 95–99
[2024-04-09 03:10] LABS: Basophils # (auto) 0 10 ^3/uL (0-0.2); Basophils % (auto) 0.8 % (0.0-2.0); Eosinophils # (auto) 0.1 10 ^3/uL (0-0.8); Eosinophils % (auto) 1.9 % (0.0-7.0); Hematocrit 41.3 % (41.0-53.0); Hemoglobin 14.3 g/dL (13.5-17.5); Lymphocytes % (auto) 35.2 % (10.0-50.0); Mean Corpuscular Hemoglobin 31.8 pg (28.0-32.0); Mean Corpuscular Hgb Conc. 34.6 g/dL (32.0-36.0); Mean Corpuscular Volume 92.1 fL (80.0-100.0); Monocytes # (auto) 0.8 10 ^3/uL (0-1.3); Monocytes % (auto) 14.8 % (0.0-12.0); Neutrophils # (auto) 2.7 10 ^3/uL (1.6-8.6); Neutrophils % (auto) 47.3 % (37.0-80.0); Red Blood Cells 4.48 10^6/uL (4.5-5.90); Red Cell Distribution Width 12.9 % (11.8-14.3); White Blood Cell 5.7 10^3/uL (4.4-10.8)
[2024-04-09 03:29] LABS: Alanine Aminotransferase 68 U/L (7-40); Alkaline Phosphatase 111 U/L (46-116); Anion Gap 7 (5-15); Aspartate Aminotransferase 28 U/L (13-40); BUN/Creatinine Ratio 18.1 (10.0-20.0); Blood Urea Nitrogen 15 mg/dL (9-23); Calcium 8.8 mg/dL (8.7-10.4); Carbon Dioxide 27 mmol/L (20-30); Chloride 101 mmol/L (98-107)
[2024-04-09 03:30] LABS: Albumin 3.6 g/dL (3.2-4.8); Bilirubin, Total 0.6 mg/dL (0.2-1.0); Total Protein 5.7 g/dL (5.7-8.2)
[2024-04-09 03:37] LABS: Glucose 109 mg/dL (74-106); Sodium 135 mmol/L (136-145)
[2024-04-09] MEDS: INSULIN LANTUS (GLARGINE) 1 /0.01ml (100units/ml) SC SCH (08:45)
[2024-04-09] MEDS ORDERED: ONDANSETRON HCL 4 MG/2 ML VIAL IV PRN (09:00)
[2024-04-09] MEDS: ENOXAPARIN SOD 40 MG/0.4 ML SYRINGE SC SCH (09:31)
[2024-04-09] MEDS: ACETAMINOPHEN 325 MG TAB PO PRN (09:36)
[2024-04-09] MEDS ORDERED: INSULIN LANTUS (GLARGINE) 1 /0.01ml (100units/ml) SC SCH (10:00)
[2024-04-09] MEDS: InsuLIN REG 1unit/0.01ml Soln (100units/ml) SC SCH (12:55)
[2024-04-10] VITALS (7 sets, daily range): BP systolic 105–124; BP diastolic 66–88; PULSE 64–92; RESP 15–19; TEMP 97.4–98.5; O2SAT 97–100
[2024-04-10 06:24] LABS: Basophils # (auto) 0 10 ^3/uL (0-0.2); Basophils % (auto) 0.9 % (0.0-2.0); Eosinophils # (auto) 0.1 10 ^3/uL (0-0.8); Eosinophils % (auto) 1.9 % (0.0-7.0); Hematocrit 43.9 % (41.0-53.0); Hemoglobin 15.5 g/dL (13.5-17.5); Lymphocytes # (auto) 1.4 10 ^3/uL (0.4-5.4); Lymphocytes % (auto) 36.7 % (10.0-50.0); Mean Corpuscular Hemoglobin 32.8 pg (28.0-32.0); Mean Corpuscular Hgb Conc. 35.2 g/dL (32.0-36.0); Monocytes # (auto) 0.5 10 ^3/uL (0-1.3); Monocytes % (auto) 13.5 % (0.0-12.0); Neutrophils # (auto) 1.7 10 ^3/uL (1.6-8.6); Nucleated Red Blood Cells % 0.2 %; Red Blood Cells 4.72 10^6/uL (4.5-5.90); Red Cell Distribution Width 12.8 % (11.8-14.3); White Blood Cell 3.7 10^3/uL (4.4-10.8)
[2024-04-10 06:52] LABS: Anion Gap 5 (5-15); Carbon Dioxide 27 mmol/L (20-30); Chloride 102 mmol/L (98-107); Potassium 3.7 mmol/L (3.5-5.1); Sodium 134 mmol/L (136-145)
[2024-04-10 06:53] LABS: Calcium 8.9 mg/dL (8.7-10.4)
[2024-04-10 06:58] LABS: BUN/Creatinine Ratio 17.7 (10.0-20.0); Blood Urea Nitrogen 11 mg/dL (9-23); Glucose 198 mg/dL (74-106)
[2024-04-10] MEDS: HYDROcodone-ACET 5/325MG TAB PO PRN (15:59)
[2024-04-11 04:53] VITALS: BP 125/80; PULSE 90; RESP 18; TEMP 98; O2SAT 98
[2024-04-11 06:23] LABS: Basophils # (auto) 0 10 ^3/uL (0-0.2); Basophils % (auto) 0.7 % (0.0-2.0); Eosinophils # (auto) 0.1 10 ^3/uL (0-0.8); Hematocrit 40.5 % (41.0-53.0); Hemoglobin 14.2 g/dL (13.5-17.5); Lymphocytes # (auto) 1.3 10 ^3/uL (0.4-5.4); Lymphocytes % (auto) 34.7 % (10.0-50.0); Mean Corpuscular Hemoglobin 32.6 pg (28.0-32.0); Mean Corpuscular Hgb Conc. 34.9 g/dL (32.0-36.0); Mean Corpuscular Volume 93.4 fL (80.0-100.0); Monocytes # (auto) 0.5 10 ^3/uL (0-1.3); Monocytes % (auto) 14.2 % (0.0-12.0); Neutrophils # (auto) 1.8 10 ^3/uL (1.6-8.6); Neutrophils % (auto) 48.4 % (37.0-80.0); Nucleated Red Blood Cells % 0.1 %; Red Blood Cells 4.34 10^6/uL (4.5-5.90); Red Cell Distribution Width 12.7 % (11.8-14.3); White Blood Cell 3.6 10^3/uL (4.4-10.8)
[2024-04-11 06:44] LABS: Alanine Aminotransferase 58 U/L (7-40); Alkaline Phosphatase 110 U/L (46-116); Anion Gap 4 (5-15); BUN/Creatinine Ratio 27.3 (10.0-20.0); Blood Urea Nitrogen 18 mg/dL (9-23); Calcium 8.6 mg/dL (8.7-10.4); Carbon Dioxide 25 mmol/L (20-30); Chloride 105 mmol/L (98-107); Glucose 237 mg/dL (74-106); Potassium 4.1 mmol/L (3.5-5.1); Sodium 134 mmol/L (136-145)
[2024-04-11 06:45] LABS: Albumin 3.5 g/dL (3.2-4.8); Aspartate Aminotransferase 51 U/L (13-40); Bilirubin, Total 0.4 mg/dL (0.2-1.0); Total Protein 5.6 g/dL (5.7-8.2)
[2024-04-11 08:32] VITALS: BP 121/72; PULSE 70; RESP 20; TEMP 97.9; O2SAT 99
[2024-04-11] MEDS: INSULIN LANTUS (GLARGINE) 1 /0.01ml (100units/ml) SC SCH (08:49)
[2024-04-11] MEDS ORDERED: DEXTROSE (50%) 50ML SYRG IV PRN (09:15)
[2024-04-11] MEDS: ACCU-CHEK COMFORT CURVE STRIP VI SCH (11:25)
[2024-04-11] MEDS: InsuLIN REG 1unit/0.01ml Soln (100units/ml) SC SCH (12:12)
[2024-04-11 12:42] VITALS: BP 115/80; PULSE 73; RESP 20; TEMP 97.6; O2SAT 99
[2024-04-11 17:27] VITALS: BP 119/71; PULSE 74; RESP 20; TEMP 97.8; O2SAT 98
[2024-04-11 20:00] VITALS: O2SAT 98
[2024-04-11 20:52] VITALS: BP 141/77; PULSE 70; RESP 21; TEMP 98.3; O2SAT 97
[2024-04-12 01:04] VITALS: BP 118/65; PULSE 79; RESP 19; TEMP 98; O2SAT 96
[2024-04-12 05:00] VITALS: BP 122/86; RESP 17; TEMP 98.2; O2SAT 98
[2024-04-12 09:00] VITALS: BP 110/71; PULSE 60; RESP 20; TEMP 98; O2SAT 99
[2024-04-12 12:53] VITALS: BP 111/69; PULSE 68; RESP 20; TEMP 98; O2SAT 98
[2024-04-12] MEDS ORDERED: BLOO1KIT60 SC (13:20)
[2024-04-12] MEDS ORDERED: [UNRECOGNIZED DRUG - CODE] XX (13:22)
[2024-04-12 17:00] VITALS: BP 104/61; PULSE 71; RESP 20; TEMP 98.2; O2SAT 97
== END 2024-04-12 17:20 | disposition home or self-care (01) | DRG 420 ==
LOC: EDBD 08:34 → ER 08:34 → TELE 16:21 → DOU IN ICU 04-09 04:10 → WEST WING 04-09 16:37 → TELE-WESTW 04-09 17:13 → WEST WING 04-09 20:33
PROVIDERS: ADMIT Internal Medicine Geriatric Medicine; ATTEND Internal Medicine
DX: E10.10 Type 1 diabetes mellitus with ketoacidosis without coma (principal); N17.0 Acute kidney failure with tubular necrosis; F10.90 Alcohol use, unspecified, uncomplicated; R74.01 Elevation of levels of liver transaminase levels; F15.90 Other stimulant use, unspecified, uncomplicated; F32.A Depression, unspecified; F41.9 Anxiety disorder, unspecified; F17.210 Nicotine dependence, cigarettes, uncomplicated; K59.00 Constipation, unspecified; Z59.00 Homelessness unspecified; Z88.0 Allergy status to penicillin; Z91.199 Patient's noncompliance with other medical treatment and regimen due to unspecified reason; Z79.899 Other long term (current) drug therapy; Y90.9 Presence of alcohol in blood, level not specified
CPT/HCPCS: 36415; 71046; 80048; 80053; 81001; 82010; 82962; 83036; 83690; 83735; 84443; 85025; 87081; 93005; G0378; J1815

== ENCOUNTER 2024-04-21 16:53 | Emergency (ER) | payer MEDICAID ==
[~2024-04-21] VITALS: Ht 170.2 cm; Wt 72.7 kg
[~2024-04-21 16:53] MED LIST changes: +BLOO1KIT60 SC; -INSLANTI SC; +[UNRECOGNIZED DRUG - CODE] XX
[2024-04-21 17:21] VITALS: BP 121/78; PULSE 108; RESP 14; O2SAT 95
[2024-04-21] MEDS ORDERED: FOLIC ACID 1 MG, MAGNESIUM SULF SDV 50% 8 MEQ, MULTIPLE VITAMIN 10 ML, THIAMINE INJ 100... INJ SCH (18:00)
== END 2024-04-21 17:57 | disposition left against medical advice (07) ==
LOC: EDBD 16:53 → EDUNIT# 16:53 → ER 16:53
DX: F10.10 Alcohol abuse, uncomplicated (principal); Z53.21 Procedure and treatment not carried out due to patient leaving prior to being seen by health care provider
CPT/HCPCS: J3411; J3475; J7030

== ENCOUNTER 2024-05-12 20:50 | Emergency (ER) | payer MEDICAID ==
[~2024-05-12] VITALS: Ht 177.8 cm; Wt 70.0 kg
[2024-05-12 21:30] VITALS: PULSE 91; RESP 19; O2SAT 96
[2024-05-12] MEDS: INSULIN LISPRO (HUMAN) 100 UNITS/ML ML SC ONE (21:41)
[2024-05-12 21:53] LABS: Mean Corpuscular Volume 93.3 fL (80.0-100.0)
[2024-05-12 21:59] LABS: Hematocrit 40.4 % (41.0-53.0); Mean Corpuscular Hemoglobin 32.4 pg (28.0-32.0); Mean Corpuscular Hgb Conc. 34.7 g/dL (32.0-36.0); Red Blood Cells 4.33 10^6/uL (4.5-5.90); Red Cell Distribution Width 13.3 % (11.8-14.3); White Blood Cell 3.1 10^3/uL (4.4-10.8)
[2024-05-12 22:00] LABS: Band Neutrophils % (manual) 0; Basophils % (manual) 0 (0.0-2.0); Blast Cells 0; Metamyelocytes % 0; Myelocytes % 0; Promyelocytes % 0; Reactive Lymphocytes 0
[2024-05-12 22:19] LABS: Alanine Aminotransferase 71 U/L (7-40); Albumin 3.7 g/dL (3.2-4.8); Alkaline Phosphatase 112 U/L (46-116); Anion Gap 12 (5-15); Aspartate Aminotransferase 72 U/L (13-40); BUN/Creatinine Ratio 10.7 (10.0-20.0); Blood Urea Nitrogen 8 mg/dL (9-23); Calcium 8.3 mg/dL (8.7-10.4); Carbon Dioxide 21 mmol/L (20-30); Chloride 101 mmol/L (98-107); Lipase 58 U/L (12-53); Potassium 3.8 mmol/L (3.5-5.1); Sodium 134 mmol/L (136-145)
[2024-05-12 22:20] LABS: Bilirubin, Total 0.3 mg/dL (0.2-1.0); Total Protein 5.9 g/dL (5.7-8.2)
[2024-05-12 22:32] LABS: Lymphocytes % (manual) 51 (10.0-50.0); Monocytes % (manual) 18 (0-12)
[2024-05-12 22:33] LABS: Eosinophils % (manual) 1 (0-7); Platelet Estimate Adequate; RBC Morphology Normal
[2024-05-12 22:37] LABS: Glucose 416 mg/dL (74-106)
[2024-05-12] MEDS: SODIUM CHLORIDE 0.9% 1,000 ML IV ONE (22:48)
[2024-05-12 22:49] LABS: Urine Bacteria None Seen /hpf (None Seen)
[2024-05-12 23:01] LABS: Blood Alcohol 185.1 mg/dL (<10)
[2024-05-12 23:03] LABS: Urine Blood Negative /uL (Negative); Urine Clarity Clear (Clear); Urine Color Light-Yellow (Yellow); Urine Protein, UAD Negative (Negative); Urine Specific Gravity 1.031 (1.001-1.035); Urine Urobilinogen Normal (Negative); Urine WBC <1 /hpf (0 - 3); Urine pH 6.5 (5.0-9.0)
[2024-05-12 23:08] LABS: Amphetamine Screen, Urine Neg (NEGATIVE); Barbiturate Scree,Urine Neg (NEGATIVE); Benzodiazephine Screen, Urine Neg (NEGATIVE); Cannabinoid Screen, Urine Neg (NEGATIVE); Cocaine Screen, Urine Neg (NEGATIVE); Opiate Scree,Urine Neg (NEGATIVE); Phencyclidine Screen, Urine Neg (NEGATIVE)
[2024-05-13 00:28] VITALS: PULSE 91; RESP 19; O2SAT 96
[2024-05-13 01:00] VITALS: BP 127/63; PULSE 76; RESP 16; O2SAT 96
== END 2024-05-13 02:31 | disposition home or self-care (01) ==
LOC: EDBD 20:50 → ER 20:50
DX: E11.65 Type 2 diabetes mellitus with hyperglycemia (principal); F10.129 Alcohol abuse with intoxication, unspecified; F41.9 Anxiety disorder, unspecified; F32.9 Major depressive disorder, single episode, unspecified; F17.210 Nicotine dependence, cigarettes, uncomplicated; F15.90 Other stimulant use, unspecified, uncomplicated; Z59.00 Homelessness unspecified; Z88.0 Allergy status to penicillin; Z88.8 Allergy status to other drugs, medicaments and biological substances; Z79.899 Other long term (current) drug therapy; Y90.0 Blood alcohol level of less than 20 mg/100 ml
CPT/HCPCS: 36415; 80053; 80307; 80320; 81001; 82962; 83690; 83880; 84484; 85007; 85027; 93005; 96360; 96372; 99285; J1815; J7030

== ENCOUNTER 2024-05-26 17:22 | Inpatient (IN) | payer MEDICAID ==
[~2024-05-26] VITALS: Ht 177.8 cm; Wt 68.5 kg
[2024-05-26 17:35] VITALS: PULSE 95; RESP 96; O2SAT 95
[2024-05-26 17:56] LABS: Basophils # (auto) 0 10 ^3/uL (0-0.2); Eosinophils # (auto) 0.1 10 ^3/uL (0-0.8); Eosinophils % (auto) 2.4 % (0.0-7.0); Hematocrit 42.5 % (41.0-53.0); Hemoglobin 14.5 g/dL (13.5-17.5); Lymphocytes # (auto) 1.7 10 ^3/uL (0.4-5.4); Lymphocytes % (auto) 42.2 % (10.0-50.0); Mean Corpuscular Hgb Conc. 34.2 g/dL (32.0-36.0); Mean Corpuscular Volume 93.4 fL (80.0-100.0); Monocytes # (auto) 0.6 10 ^3/uL (0-1.3); Monocytes % (auto) 14.9 % (0.0-12.0); Neutrophils # (auto) 1.6 10 ^3/uL (1.6-8.6); Neutrophils % (auto) 39.5 % (37.0-80.0); Nucleated Red Blood Cells % 0.1 %; Red Blood Cells 4.55 10^6/uL (4.5-5.90); Red Cell Distribution Width 13.7 % (11.8-14.3); White Blood Cell 4.1 10^3/uL (4.4-10.8)
[2024-05-26] MEDS: SODIUM CHLORIDE 0.9% 1,000 ML IV ONE (17:57)
[2024-05-26 18:14] LABS: Alanine Aminotransferase 114 U/L (7-40); Alkaline Phosphatase 135 U/L (46-116); Anion Gap 11 (5-15); Aspartate Aminotransferase 201 U/L (13-40); BUN/Creatinine Ratio 20.3 (10.0-20.0); Blood Urea Nitrogen 15 mg/dL (9-23); Calcium 8.3 mg/dL (8.7-10.4); Carbon Dioxide 23 mmol/L (20-30); Chloride 106 mmol/L (98-107); Lipase 45 U/L (12-53); Sodium 140 mmol/L (136-145)
[2024-05-26 18:15] LABS: Bilirubin, Total 0.4 mg/dL (0.2-1.0); Total Protein 6.1 g/dL (5.7-8.2)
[2024-05-26 18:45] LABS: Glucose 421 mg/dL (74-106); Lactic Acid w/Reflex 2.4 mmol/L (0.4-2.0)
[2024-05-26] MEDS ORDERED: DEXTROSE (50%) 50ML SYRG IV PRN (19:00)
[2024-05-26 19:32] VITALS: PULSE 89; RESP 18; O2SAT 99
[2024-05-26] MEDS ORDERED: HYDROcodone-ACET 5/325MG TAB PO PRN (21:30)
[2024-05-26] MEDS ORDERED: IBUPROFEN 600 MG TAB PO PRN (21:30)
[2024-05-26] MEDS ORDERED: ONDANSETRON HCL 4 MG/2 ML VIAL IV PRN (21:30)
[2024-05-26] MEDS ORDERED: DOCUSATE SOD 100 MG CAP PO PRN (21:30)
[2024-05-26 22:12] LABS: Urine Bacteria None Seen /hpf (None Seen); Urine WBC None Seen /hpf (0 - 3)
[2024-05-26 22:34] LABS: Urine Blood Negative /uL (Negative); Urine Clarity Clear (Clear); Urine Color Light-Yellow (Yellow); Urine Protein, UAD Negative (Negative); Urine Specific Gravity 1.035 (1.001-1.035); Urine Urobilinogen Normal (Negative); Urine pH 5.5 (5.0-9.0)
[2024-05-26 22:44] LABS: Amphetamine Screen, Urine Pos (NEGATIVE); Barbiturate Scree,Urine Neg (NEGATIVE); Benzodiazephine Screen, Urine Neg (NEGATIVE); Cocaine Screen, Urine Neg (NEGATIVE); Opiate Scree,Urine Neg (NEGATIVE)
[2024-05-26 22:45] LABS: Cannabinoid Screen, Urine Neg (NEGATIVE); Phencyclidine Screen, Urine Neg (NEGATIVE)
[2024-05-26] MEDS: ACCU-CHEK COMFORT CURVE STRIP VI SCH (23:36)
[2024-05-26] MEDS: SODIUM CHLORIDE 0.9% 1,000 ML IV SCH (23:42)
[2024-05-26] MEDS: InsuLIN REG 1unit/0.01ml Soln (100units/ml) SC SCH (23:44)
[2024-05-26] MEDS ORDERED: NITROGLYCERIN 0.4 MG SL TAB SL PRN (23:45)
[2024-05-26] MEDS ORDERED: MORPHINE SULFATE INJ 2 MG/ml SYRG IV PRN (23:45)
[2024-05-27] VITALS (7 sets, daily range): BP systolic 111–117; BP diastolic 72–77; PULSE 59–70; RESP 14–20; TEMP 97.1–98.1; O2SAT 96–99
[2024-05-27 05:40] LABS: Basophils # (auto) 0 10 ^3/uL (0-0.2); Basophils % (auto) 0.9 % (0.0-2.0); Eosinophils # (auto) 0.1 10 ^3/uL (0-0.8); Eosinophils % (auto) 2.2 % (0.0-7.0); Hematocrit 39.3 % (41.0-53.0); Hemoglobin 13.6 g/dL (13.5-17.5); Lymphocytes # (auto) 1.5 10 ^3/uL (0.4-5.4); Lymphocytes % (auto) 36.5 % (10.0-50.0); Mean Corpuscular Hemoglobin 32.5 pg (28.0-32.0); Mean Corpuscular Hgb Conc. 34.6 g/dL (32.0-36.0); Mean Corpuscular Volume 93.7 fL (80.0-100.0); Monocytes # (auto) 0.5 10 ^3/uL (0-1.3); Monocytes % (auto) 12.4 % (0.0-12.0); Nucleated Red Blood Cells % 0.1 %; Red Blood Cells 4.19 10^6/uL (4.5-5.90); White Blood Cell 4.1 10^3/uL (4.4-10.8)
[2024-05-27 05:47] LABS: Alanine Aminotransferase 100 U/L (7-40); Albumin 3.6 g/dL (3.2-4.8); Alkaline Phosphatase 122 U/L (46-116); Anion Gap 4 (5-15); Aspartate Aminotransferase 183 U/L (13-40); BUN/Creatinine Ratio 13.6 (10.0-20.0); Blood Urea Nitrogen 8 mg/dL (9-23); Calcium 8.4 mg/dL (8.7-10.4); Carbon Dioxide 29 mmol/L (20-30); Chloride 107 mmol/L (98-107); Potassium 3.9 mmol/L (3.5-5.1); Sodium 140 mmol/L (136-145)
[2024-05-27 05:48] LABS: Bilirubin, Total 0.6 mg/dL (0.2-1.0); Total Protein 5.6 g/dL (5.7-8.2)
[2024-05-27 06:05] LABS: Glucose 122 mg/dL (74-106)
[2024-05-27] MEDS: InsuLIN REG 1unit/0.01ml Soln (100units/ml) SC SCH (07:18)
[2024-05-27] MEDS: FOLIC ACID 1 MG TAB PO SCH (09:18)
[2024-05-27] MEDS: THIAMINE HCL 100 MG TAB PO SCH (09:19)
[2024-05-27] MEDS: MULTIPLE VITAMIN TAB PO SCH (09:19)
[2024-05-27] MEDS ORDERED: INSLANTI SC (10:25)
[2024-05-28 07:15] LABS: Alanine Aminotransferase 88 U/L (7-40); Albumin 3.6 g/dL (3.2-4.8); Alkaline Phosphatase 126 U/L (46-116); Anion Gap 5 (5-15); Aspartate Aminotransferase 123 U/L (13-40); BUN/Creatinine Ratio 21.9 (10.0-20.0); Blood Urea Nitrogen 14 mg/dL (9-23); Calcium 8.9 mg/dL (8.7-10.4); Carbon Dioxide 25 mmol/L (20-30); Chloride 104 mmol/L (98-107); Magnesium 1.8 mg/dL (1.6-2.6); Potassium 4.4 mmol/L (3.5-5.1)
[2024-05-28 07:16] LABS: Bilirubin, Total 1.2 mg/dL (0.2-1.0); Phosphorus 2.6 mg/dL (2.4-5.1); Total Protein 5.9 g/dL (5.7-8.2)
[2024-05-28 07:23] LABS: Glucose 253 mg/dL (74-106); Sodium 134 mmol/L (136-145)
[2024-05-28 08:00] VITALS: PULSE 61; PULSE 75; RESP 18; O2SAT 98
[2024-05-28 09:00] VITALS: BP 128/76; PULSE 61; RESP 18; TEMP 97.9; O2SAT 98
[2024-05-28 13:00] VITALS: BP 124/85; PULSE 64; RESP 18; TEMP 98.5; O2SAT 97
[2024-05-28 17:00] VITALS: BP 116/82; PULSE 66; RESP 18; TEMP 98.1; O2SAT 98
[2024-05-28 17:11] VITALS: BP 116/82; PULSE 66; RESP 18; TEMP 98.5; O2SAT 98
== END 2024-05-28 18:55 | disposition home or self-care (01) | DRG 816 ==
LOC: EDBD 17:22 → ER 17:22 → TELE-WESTW 23:37 → TELE 23:37 → TELE-WESTW 05-27 08:44
PROVIDERS: ADMIT Nurse Practitioner Family; ATTEND Internal Medicine
DX: T51.91XA Toxic effect of unspecified alcohol, accidental (unintentional), initial encounter (principal); G92.9 Unspecified toxic encephalopathy; K70.10 Alcoholic hepatitis without ascites; F41.9 Anxiety disorder, unspecified; F10.129 Alcohol abuse with intoxication, unspecified; E10.65 Type 1 diabetes mellitus with hyperglycemia; F15.10 Other stimulant abuse, uncomplicated; F17.210 Nicotine dependence, cigarettes, uncomplicated; F32.A Depression, unspecified; Z59.00 Homelessness unspecified; Z79.4 Long term (current) use of insulin; Z83.3 Family history of diabetes mellitus; Z79.899 Other long term (current) drug therapy; Z88.8 Allergy status to other drugs, medicaments and biological substances; Z88.0 Allergy status to penicillin
CPT/HCPCS: 36415; 36600; 71045; 80053; 80307; 80320; 81001; 82805; 82962; 83605; 83690; 83735; 84100; 84484; 85025; 93005; 99291; G0378; J1815

== ENCOUNTER 2024-06-01 15:12 | Inpatient (IN) | payer MEDICAID ==
[~2024-06-01] VITALS: Ht 175.3 cm; Wt 68.5 kg
[~2024-06-01 15:12] MED LIST changes: +INSLANTI SC
[2024-06-01 15:25] VITALS: PULSE 103; RESP 15; O2SAT 97
[2024-06-01] MEDS: SODIUM CHLORIDE 0.9% 1,000 ML IV ONE ×3 (15:33→21:12)
[2024-06-01 15:45] LABS: Basophils # (auto) 0.1 10 ^3/uL (0-0.2); Basophils % (auto) 1.3 % (0.0-2.0); Eosinophils # (auto) 0 10 ^3/uL (0-0.8); Hematocrit 41.6 % (41.0-53.0); Hemoglobin 14.3 g/dL (13.5-17.5); Lymphocytes # (auto) 1.5 10 ^3/uL (0.4-5.4); Lymphocytes % (auto) 36.8 % (10.0-50.0); Mean Corpuscular Hemoglobin 32.3 pg (28.0-32.0); Mean Corpuscular Hgb Conc. 34.3 g/dL (32.0-36.0); Monocytes # (auto) 0.6 10 ^3/uL (0-1.3); Monocytes % (auto) 14.5 % (0.0-12.0); Neutrophils # (auto) 1.9 10 ^3/uL (1.6-8.6); Neutrophils % (auto) 46.4 % (37.0-80.0); Nucleated Red Blood Cells % 0.2 %; Red Blood Cells 4.43 10^6/uL (4.5-5.90); Red Cell Distribution Width 13.8 % (11.8-14.3)
[2024-06-01 16:07] LABS: Alanine Aminotransferase 122 U/L (7-40); Albumin 4.2 g/dL (3.2-4.8); Alkaline Phosphatase 144 U/L (46-116); Anion Gap 10 (5-15); Aspartate Aminotransferase 198 U/L (13-40); BUN/Creatinine Ratio 20.4 (10.0-20.0); Bilirubin, Total 0.4 mg/dL (0.2-1.0); Blood Alcohol 262.7 mg/dL (<10); Blood Urea Nitrogen 19 mg/dL (9-23); Calcium 8.8 mg/dL (8.5-10.1); Carbon Dioxide 24 mmol/L (20-30); Chloride 104 mmol/L (98-107); Creatine Kinase IFCC 182 U/L (46-171); Potassium 4.2 mmol/L (3.5-5.1); Sodium 138 mmol/L (136-145); Total Protein 6.2 g/dL (5.7-8.2)
[2024-06-01 16:20] LABS: Lactic Acid w/Reflex 2.7 mmol/L (0.4-2.0)
[2024-06-01 16:22] LABS: Glucose 410 mg/dL (74-106)
[2024-06-01 16:49] LABS: Base Excess -4.9 mmol/L (-2.0-2.0)
[2024-06-01] MEDS: InsuLIN REG 1unit/0.01ml Soln (100units/ml) IV ONE (17:40)
[2024-06-01 19:30] VITALS: PULSE 85; RESP 16; O2SAT 96
[2024-06-01 20:43] LABS: Lactic Acid w/Reflex 2.7 mmol/L (0.4-2.0)
[2024-06-01] MEDS ORDERED: ONDANSETRON HCL 4 MG/2 ML VIAL IV PRN (22:15)
[2024-06-01] MEDS ORDERED: chlordiazePOXIDE HCL 25 MG CAP PO PRN (22:15)
[2024-06-02] VITALS (7 sets, daily range): BP systolic 105–130; BP diastolic 58–72; PULSE 70–77; RESP 16–18; TEMP 97.3–98.5; O2SAT 97–99
[2024-06-02] MEDS: TEMAZEPAM 15 MG CAP PO PRN (00:17)
[2024-06-02 07:12] LABS: Basophils # (auto) 0.1 10 ^3/uL (0-0.2); Basophils % (auto) 1.3 % (0.0-2.0); Eosinophils # (auto) 0.1 10 ^3/uL (0-0.8); Eosinophils % (auto) 1.8 % (0.0-7.0); Hematocrit 43.8 % (41.0-53.0); Hemoglobin 15.1 g/dL (13.5-17.5); Lymphocytes # (auto) 1.4 10 ^3/uL (0.4-5.4); Lymphocytes % (auto) 31.5 % (10.0-50.0); Mean Corpuscular Hemoglobin 32.5 pg (28.0-32.0); Mean Corpuscular Hgb Conc. 34.4 g/dL (32.0-36.0); Mean Corpuscular Volume 94.5 fL (80.0-100.0); Monocytes # (auto) 0.7 10 ^3/uL (0-1.3); Monocytes % (auto) 15.5 % (0.0-12.0); Neutrophils # (auto) 2.3 10 ^3/uL (1.6-8.6); Neutrophils % (auto) 49.9 % (37.0-80.0); Nucleated Red Blood Cells % 0.2 %; Red Blood Cells 4.63 10^6/uL (4.5-5.90); Red Cell Distribution Width 13.6 % (11.8-14.3); White Blood Cell 4.6 10^3/uL (4.4-10.8)
[2024-06-02 07:34] LABS: Alanine Aminotransferase 99 U/L (7-40); Albumin 3.8 g/dL (3.2-4.8); Alkaline Phosphatase 143 U/L (46-116); Anion Gap 13 (5-15); Aspartate Aminotransferase 133 U/L (13-40); BUN/Creatinine Ratio 16.4 (10.0-20.0); Bilirubin, Total 1.8 mg/dL (0.2-1.0); Blood Urea Nitrogen 11 mg/dL (9-23); Calcium 8.8 mg/dL (8.5-10.1); Carbon Dioxide 19 mmol/L (20-30); Chloride 100 mmol/L (98-107); Glucose 336 mg/dL (74-106); Potassium 4.6 mmol/L (3.5-5.1)
[2024-06-02 07:40] LABS: Sodium 132 mmol/L (136-145)
[2024-06-02] MEDS ORDERED: LORazepam 2MG/ML-1ML VIAL IV PRN (10:00)
[2024-06-02] MEDS ORDERED: DEXTROSE (50%) 50ML SYRG IV PRN ×2 (10:00)
[2024-06-02] MEDS ORDERED: InsuLIN REG 1unit/0.01ml Soln (100units/ml) SC SCH ×2 (11:30→22:00)
[2024-06-02] MEDS ORDERED: ACCU-CHEK COMFORT CURVE STRIP VI SCH (11:30)
[2024-06-02] MEDS: FOLIC ACID 1 MG TAB PO ONE (12:06)
[2024-06-02] MEDS: chlordiazePOXIDE HCL 25 MG CAP PO SCH (12:07)
[2024-06-02] MEDS: THIAMINE HCL 100 MG TAB PO ONE (12:08)
[2024-06-02] MEDS: ACCU-CHEK COMFORT CURVE STRIP VI SCH (12:21)
[2024-06-02] MEDS: InsuLIN REG 1unit/0.01ml Soln (100units/ml) SC SCH (12:24)
[2024-06-02] MEDS: FOLIC ACID 1 MG, MAGNESIUM SULF SDV 50% 8 MEQ, MULTIPLE VITAMIN 10 ML, THIAMINE INJ 100... INJ SCH (17:41)
[2024-06-02] MEDS: LORazepam 2MG/ML-1ML VIAL IV PRN (21:23)
[2024-06-03 00:11] LABS: Urine Bacteria None Seen /hpf (None Seen)
[2024-06-03 00:15] LABS: Urine Blood Negative /uL (Negative); Urine Clarity Clear (Clear); Urine Color Light-Yellow (Yellow); Urine Protein, UAD Negative (Negative); Urine Specific Gravity 1.027 (1.001-1.035); Urine Urobilinogen Normal (Negative); Urine WBC 1 /hpf (0 - 3); Urine pH 5.5 (5.0-9.0)
[2024-06-03 00:27] LABS: Amphetamine Screen, Urine Neg (NEGATIVE); Barbiturate Scree,Urine Neg (NEGATIVE); Benzodiazephine Screen, Urine Neg (NEGATIVE); Cocaine Screen, Urine Neg (NEGATIVE)
[2024-06-03 00:28] LABS: Cannabinoid Screen, Urine Neg (NEGATIVE); Opiate Scree,Urine Neg (NEGATIVE); Phencyclidine Screen, Urine Neg (NEGATIVE)
[2024-06-03 01:00] VITALS: BP 106/71; PULSE 79; RESP 18; TEMP 97.8; O2SAT 97
[2024-06-03 05:00] VITALS: BP 117/59; PULSE 85; RESP 18; TEMP 98.1; O2SAT 99
[2024-06-03] MEDS: INSULIN LANTUS (GLARGINE) 1 /0.01ml (100units/ml) SC SCH (06:35)
[2024-06-03 06:41] LABS: Basophils # (auto) 0 10 ^3/uL (0-0.2); Basophils % (auto) 1.2 % (0.0-2.0); Eosinophils # (auto) 0.1 10 ^3/uL (0-0.8); Eosinophils % (auto) 2.7 % (0.0-7.0); Hematocrit 40.5 % (41.0-53.0); Hemoglobin 14.2 g/dL (13.5-17.5); Lymphocytes # (auto) 1.2 10 ^3/uL (0.4-5.4); Lymphocytes % (auto) 32.6 % (10.0-50.0); Mean Corpuscular Hemoglobin 32.8 pg (28.0-32.0); Mean Corpuscular Hgb Conc. 35.1 g/dL (32.0-36.0); Mean Corpuscular Volume 93.4 fL (80.0-100.0); Monocytes # (auto) 0.6 10 ^3/uL (0-1.3); Monocytes % (auto) 17.9 % (0.0-12.0); Neutrophils # (auto) 1.6 10 ^3/uL (1.6-8.6); Neutrophils % (auto) 45.6 % (37.0-80.0); Nucleated Red Blood Cells % 0.3 %; Red Blood Cells 4.34 10^6/uL (4.5-5.90); Red Cell Distribution Width 13.4 % (11.8-14.3); White Blood Cell 3.6 10^3/uL (4.4-10.8)
[2024-06-03 06:56] LABS: Alanine Aminotransferase 72 U/L (7-40); Alkaline Phosphatase 134 U/L (46-116); Anion Gap 6 (5-15); Aspartate Aminotransferase 46 U/L (13-40); BUN/Creatinine Ratio 22.8 (10.0-20.0); Blood Urea Nitrogen 18 mg/dL (9-23); Calcium 8.7 mg/dL (8.5-10.1); Carbon Dioxide 26 mmol/L (20-30); Chloride 101 mmol/L (98-107); Glucose 397 mg/dL (74-106); Potassium 4.4 mmol/L (3.5-5.1); Sodium 133 mmol/L (136-145)
[2024-06-03 06:57] LABS: Albumin 3.4 g/dL (3.2-4.8); Bilirubin, Total 0.7 mg/dL (0.2-1.0); Total Protein 5.4 g/dL (5.7-8.2)
[2024-06-03 06:58] LABS: INR 1.14 (0.9-1.15)
[2024-06-03 07:49] VITALS: RESP 18
[2024-06-03 09:00] VITALS: BP 106/73; PULSE 67; RESP 16; TEMP 98.2; O2SAT 98
[2024-06-03] MEDS: chlordiazePOXIDE HCL 25 MG CAP PO SCH (09:14)
[2024-06-03] MEDS: FOLIC ACID 1 MG TAB PO SCH (09:14)
[2024-06-03] MEDS: THIAMINE HCL 100 MG TAB PO SCH (09:14)
[2024-06-03 13:00] VITALS: PULSE 67; RESP 16; TEMP 97.6; O2SAT 97
[2024-06-04] MEDS ORDERED: chlordiazePOXIDE HCL 25 MG CAP PO SCH (10:00)
[2024-06-05] MEDS ORDERED: chlordiazePOXIDE HCL 25 MG CAP PO SCH (07:00)
== END 2024-06-03 15:30 | disposition left against medical advice (07) | DRG 816 ==
LOC: ER 15:12 → EDBD 15:12 → OVERFLOW 22:54 → EAST 06-02 01:36
PROVIDERS: ADMIT Internal Medicine; ATTEND Emergency Medicine
DX: T51.91XA Toxic effect of unspecified alcohol, accidental (unintentional), initial encounter (principal); G92.8 Other toxic encephalopathy; T67.01XA Heatstroke and sunstroke, initial encounter; K74.60 Unspecified cirrhosis of liver; E10.65 Type 1 diabetes mellitus with hyperglycemia; E86.0 Dehydration; F10.129 Alcohol abuse with intoxication, unspecified; F17.210 Nicotine dependence, cigarettes, uncomplicated; F15.10 Other stimulant abuse, uncomplicated; F32.A Depression, unspecified; R74.01 Elevation of levels of liver transaminase levels; F41.9 Anxiety disorder, unspecified; Y90.8 Blood alcohol level of 240 mg/100 ml or more; X30.XXXA Exposure to excessive natural heat, initial encounter; Z59.00 Homelessness unspecified; Z79.4 Long term (current) use of insulin; Z91.148 Patient's other noncompliance with medication regimen for other reason; Z91.199 Patient's noncompliance with other medical treatment and regimen due to unspecified reason; Z88.0 Allergy status to penicillin; Z88.8 Allergy status to other drugs, medicaments and biological substances; Z79.899 Other long term (current) drug therapy; Y93.89 Activity, other specified; Y92.89 Other specified places as the place of occurrence of the external cause; Y99.8 Other external cause status
CPT/HCPCS: 36415; 36600; 70450; 71045; 80053; 80307; 80320; 81001; 82010; 82550; 82805; 82962; 83605; 83735; 84484; 85025; 85610; 87081; 93005; G0378; J1815

== ENCOUNTER 2024-06-10 09:22 | Inpatient (IN) | payer MEDICAID ==
[~2024-06-10] VITALS: Ht 172.7 cm; Wt 66.0 kg
[2024-06-10 09:32] VITALS: PULSE 101; RESP 18; RESP 20; O2SAT 96
[2024-06-10] MEDS: SODIUM CHLORIDE 0.9% 1,000 ML IV ONE (09:57)
[2024-06-10] MEDS: InsuLIN REG 1unit/0.01ml Soln (100units/ml) IV ONE (10:00)
[2024-06-10 10:10] LABS: Basophils # (auto) 0.1 10 ^3/uL (0-0.2); Basophils % (auto) 1.3 % (0.0-2.0); Eosinophils # (auto) 0 10 ^3/uL (0-0.8); Eosinophils % (auto) 0.5 % (0.0-7.0); Hemoglobin 15.1 g/dL (13.5-17.5); Lymphocytes # (auto) 1.4 10 ^3/uL (0.4-5.4); Lymphocytes % (auto) 23.9 % (10.0-50.0); Mean Corpuscular Hemoglobin 32.8 pg (28.0-32.0); Mean Corpuscular Hgb Conc. 34.4 g/dL (32.0-36.0); Mean Corpuscular Volume 95.2 fL (80.0-100.0); Monocytes # (auto) 0.7 10 ^3/uL (0-1.3); Monocytes % (auto) 11.6 % (0.0-12.0); Neutrophils # (auto) 3.7 10 ^3/uL (1.6-8.6); Neutrophils % (auto) 62.7 % (37.0-80.0); Nucleated Red Blood Cells % 0.1 %; Red Blood Cells 4.62 10^6/uL (4.5-5.90); Red Cell Distribution Width 13.4 % (11.8-14.3); White Blood Cell 5.9 10^3/uL (4.4-10.8)
[2024-06-10 10:20] LABS: Base Excess -14.4 mmol/L (-2.0-2.0)
[2024-06-10 10:23] LABS: Anion Gap 28 (5-15); Carbon Dioxide 12 mmol/L (20-30); Chloride 95 mmol/L (98-107); Potassium 4.4 mmol/L (3.5-5.1); Sodium 135 mmol/L (136-145)
[2024-06-10 10:29] LABS: BUN/Creatinine Ratio 10.1 (10.0-20.0); Blood Urea Nitrogen 10 mg/dL (9-23)
[2024-06-10 10:38] LABS: Glucose 423 mg/dL (74-106)
[2024-06-10] MEDS ORDERED: MORPHINE SULFATE INJ 2 MG/ml SYRG IV PRN ×2 (13:30)
[2024-06-10] MEDS ORDERED: NITROGLYCERIN 0.4 MG SL TAB SL PRN (13:30)
[2024-06-10] MEDS ORDERED: DOCUSATE SOD 100 MG CAP PO PRN (13:30)
[2024-06-10] MEDS: INSULIN LANTUS (GLARGINE) 1 /0.01ml (100units/ml) SC ONE (13:30)
[2024-06-10] MEDS: ACCU-CHEK COMFORT CURVE STRIP VI SCH ×2 (13:30→20:00)
[2024-06-10] MEDS ORDERED: LORazepam 2MG/ML-1ML VIAL IV PRN (13:30)
[2024-06-10] MEDS ORDERED: ONDANSETRON HCL 4 MG/2 ML VIAL IV PRN (13:30)
[2024-06-10] MEDS ORDERED: DEXTROSE (50%) 50ML SYRG IV PRN ×2 (13:30→19:15)
[2024-06-10] MEDS: PANTOPRAZOLE 40 MG/10 ML VIAL INJ IV ONE (13:56)
[2024-06-10] MEDS: chlordiazePOXIDE HCL 25 MG CAP PO SCH (13:56)
[2024-06-10] MEDS: SODIUM CHLORIDE 0.9% 1,000 ML IV SCH ×3 (13:57→21:00)
[2024-06-10] MEDS: INSULIN DRIP 100 UNIT/100ML 100 ML IV SCH (14:08)
[2024-06-10 14:25] LABS: Chloride 100 mmol/L (98-107); Potassium 4.1 mmol/L (3.5-5.1); Sodium 135 mmol/L (136-145)
[2024-06-10 14:26] LABS: Anion Gap 16 (5-15); Calcium 8.4 mg/dL (8.7-10.4); Carbon Dioxide 19 mmol/L (20-30)
[2024-06-10 14:31] LABS: BUN/Creatinine Ratio 11.2 (10.0-20.0); Blood Urea Nitrogen 10 mg/dL (9-23)
[2024-06-10 14:32] LABS: Blood Alcohol < 3.0 mg/dL (<10); Magnesium 1.7 mg/dL (1.6-2.6)
[2024-06-10 14:33] LABS: Urine Bacteria None Seen /hpf (None Seen); Urine WBC None Seen /hpf (0 - 3)
[2024-06-10 14:33] LABS: Glucose 190 mg/dL (74-106); Phosphorus 2.8 mg/dL (2.4-5.1)
[2024-06-10 14:47] LABS: Urine Blood Negative /uL (Negative); Urine Clarity Clear (Clear); Urine Color Light-Yellow (Yellow); Urine Protein, UAD Negative (Negative); Urine Specific Gravity 1.024 (1.001-1.035); Urine Urobilinogen Normal (Negative)
[2024-06-10 18:24] LABS: Chloride 105 mmol/L (98-107); Potassium 3.9 mmol/L (3.5-5.1); Sodium 138 mmol/L (136-145)
[2024-06-10 18:25] LABS: Anion Gap 12 (5-15); Carbon Dioxide 21 mmol/L (20-30)
[2024-06-10 18:30] LABS: BUN/Creatinine Ratio 11.8 (10.0-20.0); Blood Urea Nitrogen 9 mg/dL (9-23); Glucose 96 mg/dL (74-106)
[2024-06-10] MEDS: D5W/SOD CHLO 0.9% 1,000 ML IV ONE (18:31)
[2024-06-10] MEDS ORDERED: SODIUM CHLORIDE 0.9% 1,000 ML IV SCH (19:30)
[2024-06-10 20:00] VITALS: PULSE 82; RESP 18; O2SAT 98
[2024-06-10] MEDS: InsuLIN REG 1unit/0.01ml Soln (100units/ml) SC SCH (20:00)
[2024-06-10] MEDS: PANTOPRAZOLE 40 MG/10 ML VIAL INJ IV SCH (22:29)
[2024-06-11] VITALS (7 sets, daily range): BP systolic 103–131; BP diastolic 67–80; PULSE 67–96; RESP 16–20; TEMP 97.6–98.9; O2SAT 95–100
[2024-06-11] MEDS ORDERED: INSUINJ37 SC (04:52)
[2024-06-11 05:52] LABS: Basophils # (auto) 0 10 ^3/uL (0-0.2); Basophils % (auto) 0.9 % (0.0-2.0); Eosinophils # (auto) 0.1 10 ^3/uL (0-0.8); Eosinophils % (auto) 2.4 % (0.0-7.0); Hemoglobin 14.5 g/dL (13.5-17.5); Lymphocytes # (auto) 1.4 10 ^3/uL (0.4-5.4); Lymphocytes % (auto) 29.6 % (10.0-50.0); Mean Corpuscular Hemoglobin 33.1 pg (28.0-32.0); Mean Corpuscular Hgb Conc. 34.6 g/dL (32.0-36.0); Mean Corpuscular Volume 95.5 fL (80.0-100.0); Monocytes # (auto) 0.6 10 ^3/uL (0-1.3); Monocytes % (auto) 12.3 % (0.0-12.0); Neutrophils # (auto) 2.7 10 ^3/uL (1.6-8.6); Neutrophils % (auto) 54.8 % (37.0-80.0); Nucleated Red Blood Cells % 0.2 %; Red Cell Distribution Width 14.2 % (11.8-14.3); White Blood Cell 4.9 10^3/uL (4.4-10.8)
[2024-06-11 06:13] LABS: Alanine Aminotransferase 95 U/L (7-40); Albumin 3.7 g/dL (3.2-4.8); Alkaline Phosphatase 145 U/L (46-116); Anion Gap 17 (5-15); BUN/Creatinine Ratio 10.8 (10.0-20.0); Blood Urea Nitrogen 10 mg/dL (9-23); Calcium 8.4 mg/dL (8.7-10.4); Carbon Dioxide 16 mmol/L (20-30); Chloride 102 mmol/L (98-107); Glucose 265 mg/dL (74-106); Potassium 4.3 mmol/L (3.5-5.1); Sodium 135 mmol/L (136-145)
[2024-06-11 06:14] LABS: Aspartate Aminotransferase 54 U/L (13-40); Bilirubin, Total 0.5 mg/dL (0.2-1.0); Total Protein 5.5 g/dL (5.7-8.2)
[2024-06-11] MEDS: chlordiazePOXIDE HCL 25 MG CAP PO SCH (08:21)
[2024-06-11] MEDS ORDERED: INSULIN LANTUS (GLARGINE) 1 /0.01ml (100units/ml) SC SCH (10:00)
[2024-06-11 14:14] LABS: Chloride 101 mmol/L (98-107); Potassium 4.3 mmol/L (3.5-5.1); Sodium 132 mmol/L (136-145)
[2024-06-11 14:15] LABS: Anion Gap 7 (5-15); Carbon Dioxide 24 mmol/L (20-30)
[2024-06-11 14:16] LABS: Calcium 8.4 mg/dL (8.7-10.4)
[2024-06-11 14:21] LABS: BUN/Creatinine Ratio 11.7 (10.0-20.0); Blood Urea Nitrogen 11 mg/dL (9-23); Glucose 380 mg/dL (74-106)
[2024-06-11] MEDS: InsuLIN REG 1unit/0.01ml Soln (100units/ml) SC SCH (20:09)
[2024-06-12 01:00] VITALS: BP 124/75; PULSE 79; RESP 18; TEMP 98.3; O2SAT 97
[2024-06-12 05:00] VITALS: BP 116/71; PULSE 71; RESP 18; TEMP 98.1; O2SAT 100
[2024-06-12 07:40] LABS: Alanine Aminotransferase 73 U/L (7-40); Albumin 3.3 g/dL (3.2-4.8); Alkaline Phosphatase 116 U/L (46-116); Anion Gap 12 (5-15); Aspartate Aminotransferase 43 U/L (13-40); Blood Urea Nitrogen 11 mg/dL (9-23); Calcium 8.6 mg/dL (8.7-10.4); Carbon Dioxide 23 mmol/L (20-30); Chloride 102 mmol/L (98-107); Magnesium 1.3 mg/dL (1.6-2.6); Potassium 3.4 mmol/L (3.5-5.1); Sodium 137 mmol/L (136-145)
[2024-06-12 07:41] LABS: Bilirubin, Total 0.4 mg/dL (0.2-1.0)
[2024-06-12 07:43] LABS: Glucose 171 mg/dL (74-106)
[2024-06-12 08:00] VITALS: PULSE 82; RESP 16; O2SAT 100
[2024-06-12] MEDS: chlordiazePOXIDE HCL 25 MG CAP PO SCH (08:08)
[2024-06-12 09:00] VITALS: BP 127/77; PULSE 81; RESP 20; TEMP 98.1; O2SAT 98
[2024-06-12] MEDS: MAGNESIUM OXIDE 400 MG TAB PO SCH (11:48)
[2024-06-12] MEDS: POTASSIUM CHL 20 Meq TABLET PO ONE (11:48)
[2024-06-12 13:00] VITALS: BP 115/74; PULSE 68; RESP 20; TEMP 98; O2SAT 97
[2024-06-13] MEDS ORDERED: chlordiazePOXIDE HCL 25 MG CAP PO SCH (07:00)
== END 2024-06-12 15:24 | disposition left against medical advice (07) | DRG 420 ==
LOC: EDBD 09:22 → ER 09:22 → TELE 13:37 → TELE-WESTW 06-11 04:13
PROVIDERS: ADMIT Nurse Practitioner Family; ATTEND Nurse Practitioner Family
DX: E10.10 Type 1 diabetes mellitus with ketoacidosis without coma (principal); E87.1 Hypo-osmolality and hyponatremia; F10.139 Alcohol abuse with withdrawal, unspecified; Z53.29 Procedure and treatment not carried out because of patient's decision for other reasons; F41.9 Anxiety disorder, unspecified; G40.909 Epilepsy, unspecified, not intractable, without status epilepticus; F17.210 Nicotine dependence, cigarettes, uncomplicated; E83.42 Hypomagnesemia; E87.6 Hypokalemia; F32.A Depression, unspecified; Z59.00 Homelessness unspecified; Z79.4 Long term (current) use of insulin; Z91.199 Patient's noncompliance with other medical treatment and regimen due to unspecified reason; Y90.9 Presence of alcohol in blood, level not specified; R00.0 Tachycardia, unspecified
CPT/HCPCS: 36415; 36600; 80048; 80053; 80320; 81001; 82010; 82805; 82962; 83735; 83930; 84100; 85025; 96361; 96365; 96372; 96375; 99291; G0378; J1815; J2470

== ENCOUNTER 2024-06-23 09:02 | Inpatient (IN) | payer MEDICAID ==
[~2024-06-23] VITALS: Ht 177.8 cm; Wt 64.5 kg
[~2024-06-23 09:02] MED LIST changes: -BLOO1KIT60 XX; -INSLANTI SC; +INSUINJ37 SC
[2024-06-23 09:15] VITALS: PULSE 109; RESP 20; O2SAT 96
[2024-06-23] MEDS: SODIUM CHLORIDE 0.9% 1,000 ML IV ONE ×2 (09:29→09:37)
[2024-06-23 09:31] LABS: Basophils # (auto) 0.1 10 ^3/uL (0-0.2); Basophils % (auto) 1.3 % (0.0-2.0); Eosinophils # (auto) 0.1 10 ^3/uL (0-0.8); Eosinophils % (auto) 0.9 % (0.0-7.0); Hematocrit 50.2 % (41.0-53.0); Hemoglobin 16.9 g/dL (13.5-17.5); Lymphocytes # (auto) 2.2 10 ^3/uL (0.4-5.4); Lymphocytes % (auto) 34.1 % (10.0-50.0); Mean Corpuscular Hemoglobin 32.9 pg (28.0-32.0); Mean Corpuscular Hgb Conc. 33.7 g/dL (32.0-36.0); Mean Corpuscular Volume 97.5 fL (80.0-100.0); Monocytes # (auto) 0.7 10 ^3/uL (0-1.3); Monocytes % (auto) 10.4 % (0.0-12.0); Neutrophils # (auto) 3.5 10 ^3/uL (1.6-8.6); Neutrophils % (auto) 53.3 % (37.0-80.0); Nucleated Red Blood Cells % 0.1 %; Red Blood Cells 5.15 10^6/uL (4.5-5.90); Red Cell Distribution Width 14.6 % (11.8-14.3); White Blood Cell 6.6 10^3/uL (4.4-10.8)
[2024-06-23] MEDS: InsuLIN REG 1unit/0.01ml Soln (100units/ml) IV ONE (09:33)
[2024-06-23] MEDS: ONDANSETRON HCL 4 MG/2 ML VIAL IV ONE ×2 (09:36→12:48)
[2024-06-23 10:21] LABS: Chloride 95 mmol/L (98-107); Sodium 138 mmol/L (136-145)
[2024-06-23 10:24] LABS: Anion Gap 25 (5-15); Calcium 8.8 mg/dL (8.7-10.4); Carbon Dioxide 18 mmol/L (20-30)
[2024-06-23 10:29] LABS: Alkaline Phosphatase 157 U/L (46-116); Glucose 346 mg/dL (74-106)
[2024-06-23 10:31] LABS: Albumin 4.4 g/dL (3.2-4.8); Aspartate Aminotransferase 32 U/L (13-40); Bilirubin, Total 0.5 mg/dL (0.2-1.0)
[2024-06-23 10:32] LABS: Total Protein 6.7 g/dL (5.7-8.2)
[2024-06-23 10:42] LABS: Alanine Aminotransferase 36 U/L (7-40); Potassium 3.7 mmol/L (3.5-5.1)
[2024-06-23] MEDS ORDERED: DEXTROSE (50%) 50ML SYRG IV PRN ×2 (11:15→12:15)
[2024-06-23] MEDS: D5W/SOD CHL 0.45% 1,000 ML IV SCH (11:30)
[2024-06-23 11:34] LABS: Platelet Estimate Adequate
[2024-06-23 11:44] LABS: BUN/Creatinine Ratio 14.7 (10.0-20.0); Blood Urea Nitrogen 15 mg/dL (9-23)
[2024-06-23] MEDS: ACCU-CHEK COMFORT CURVE STRIP VI SCH ×2 (12:00→13:30)
[2024-06-23] MEDS ORDERED: MORPHINE SULFATE INJ 2 MG/ml SYRG IV PRN (12:15)
[2024-06-23] MEDS ORDERED: NITROGLYCERIN 0.4 MG SL TAB SL PRN (12:15)
[2024-06-23] MEDS ORDERED: DOCUSATE SOD 100 MG CAP PO PRN (12:15)
[2024-06-23] MEDS ORDERED: ONDANSETRON HCL 4 MG/2 ML VIAL IV PRN (12:15)
[2024-06-23] MEDS: INSULIN DRIP 100 UNIT/100ML 100 ML IV SCH ×2 (12:30→14:15)
[2024-06-23 12:48] LABS: Base Excess -9.5 mmol/L (-2.0-2.0)
[2024-06-23 12:58] LABS: Urine Bacteria FEW /hpf (None Seen); Urine Blood Negative /uL (Negative); Urine Budding Yeast OCCASIONAL /hpf (None Seen); Urine Clarity Clear (Clear); Urine Color Light-Yellow (Yellow); Urine Protein, UAD TRACE (Negative); Urine Specific Gravity 1.028 (1.001-1.035); Urine Urobilinogen Normal (Negative); Urine WBC 6 /hpf (0 - 3); Urine pH 5.5 (5.0-9.0)
[2024-06-23 13:06] LABS: Phosphorus 4.6 mg/dL (2.4-5.1)
[2024-06-23 13:16] VITALS: PULSE 94; RESP 14; O2SAT 97
[2024-06-23] MEDS: INSULIN LANTUS (GLARGINE) 1 /0.01ml (100units/ml) SC ONE (15:12)
[2024-06-23 18:54] LABS: Anion Gap 11 (5-15); Calcium 8.4 mg/dL (8.7-10.4); Carbon Dioxide 24 mmol/L (20-30); Chloride 100 mmol/L (98-107); Potassium 3.8 mmol/L (3.5-5.1); Sodium 135 mmol/L (136-145)
[2024-06-23 19:00] LABS: BUN/Creatinine Ratio 11.8 (10.0-20.0); Blood Urea Nitrogen 9 mg/dL (9-23)
[2024-06-23 19:01] LABS: Glucose 129 mg/dL (74-106)
[2024-06-23 20:00] VITALS: PULSE 76; RESP 14; O2SAT 96
[2024-06-24 00:37] LABS: Chloride 102 mmol/L (98-107); Potassium 3.3 mmol/L (3.5-5.1); Sodium 135 mmol/L (136-145)
[2024-06-24 00:38] LABS: Anion Gap 5 (5-15); Calcium 8.7 mg/dL (8.7-10.4); Carbon Dioxide 28 mmol/L (20-30)
[2024-06-24] MEDS ORDERED: DEXTROSE (50%) 50ML SYRG IV PRN ×2 (01:15→11:45)
[2024-06-24 01:19] LABS: BUN/Creatinine Ratio 14.7 (10.0-20.0); Blood Urea Nitrogen 10 mg/dL (9-23); Glucose 155 mg/dL (74-106)
[2024-06-24] MEDS: POTASSIUM CHL 20 Meq TABLET PO ONE (01:25)
[2024-06-24] MEDS: InsuLIN REG 1unit/0.01ml Soln (100units/ml) SC SCH ×3 (05:03→21:43)
[2024-06-24] MEDS: ACCU-CHEK COMFORT CURVE STRIP VI SCH ×2 (05:03→16:48)
[2024-06-24 05:35] LABS: Basophils # (auto) 0.1 10 ^3/uL (0-0.2); Basophils % (auto) 1.2 % (0.0-2.0); Eosinophils # (auto) 0.1 10 ^3/uL (0-0.8); Eosinophils % (auto) 2.4 % (0.0-7.0); Hematocrit 42.4 % (41.0-53.0); Hemoglobin 14.7 g/dL (13.5-17.5); Lymphocytes # (auto) 1.6 10 ^3/uL (0.4-5.4); Lymphocytes % (auto) 38.1 % (10.0-50.0); Mean Corpuscular Hemoglobin 33.1 pg (28.0-32.0); Mean Corpuscular Hgb Conc. 34.8 g/dL (32.0-36.0); Mean Corpuscular Volume 95.2 fL (80.0-100.0); Monocytes # (auto) 0.7 10 ^3/uL (0-1.3); Monocytes % (auto) 16.5 % (0.0-12.0); Neutrophils # (auto) 1.8 10 ^3/uL (1.6-8.6); Neutrophils % (auto) 41.8 % (37.0-80.0); Nucleated Red Blood Cells % 0.3 %; Red Blood Cells 4.45 10^6/uL (4.5-5.90); Red Cell Distribution Width 14.6 % (11.8-14.3); White Blood Cell 4.3 10^3/uL (4.4-10.8)
[2024-06-24 05:57] LABS: Albumin 3.6 g/dL (3.2-4.8); Alkaline Phosphatase 129 U/L (46-116); Anion Gap 11 (5-15); Aspartate Aminotransferase 20 U/L (13-40); Blood Urea Nitrogen 9 mg/dL (9-23); Calcium 8.7 mg/dL (8.7-10.4); Carbon Dioxide 22 mmol/L (20-30); Chloride 102 mmol/L (98-107); Glucose 101 mg/dL (74-106); Sodium 135 mmol/L (136-145)
[2024-06-24 05:58] LABS: Bilirubin, Total 0.7 mg/dL (0.2-1.0); Total Protein 5.8 g/dL (5.7-8.2)
[2024-06-24 06:11] LABS: Alanine Aminotransferase 28 U/L (7-40)
[2024-06-24] MEDS: SODIUM CHLORIDE 0.9% 1,000 ML IV SCH (08:15)
[2024-06-24 08:30] VITALS: PULSE 64; RESP 13; O2SAT 96
[2024-06-24 09:21] VITALS: BP 106/73; PULSE 66; RESP 18; TEMP 98.5; O2SAT 97
[2024-06-24 09:30] VITALS: PULSE 66; RESP 18; O2SAT 97
[2024-06-24] MEDS: INSULIN LANTUS (GLARGINE) 1 /0.01ml (100units/ml) SC SCH (10:22)
[2024-06-24 12:57] VITALS: BP 113/72; PULSE 65; RESP 16; TEMP 98.6; O2SAT 98
[2024-06-24 16:36] VITALS: BP 114/72; PULSE 67; RESP 18; TEMP 98.1; O2SAT 98
[2024-06-24 20:53] VITALS: BP 117/74; PULSE 67; RESP 20; TEMP 98.1; O2SAT 98
[2024-06-25 01:00] VITALS: BP 109/77; PULSE 69; RESP 20; TEMP 97.6; O2SAT 99
[2024-06-25 05:00] VITALS: BP 109/73; PULSE 71; RESP 20; TEMP 97.6; O2SAT 98
[2024-06-25 06:58] LABS: Anion Gap 8 (5-15); Calcium 8.5 mg/dL (8.7-10.4); Carbon Dioxide 24 mmol/L (20-30); Chloride 104 mmol/L (98-107); Potassium 3.4 mmol/L (3.5-5.1); Sodium 136 mmol/L (136-145)
[2024-06-25 07:04] LABS: BUN/Creatinine Ratio 13.6 (10.0-20.0); Blood Urea Nitrogen 8 mg/dL (9-23); Magnesium 1.6 mg/dL (1.6-2.6)
[2024-06-25 07:10] LABS: Glucose 272 mg/dL (74-106)
[2024-06-25 08:00] VITALS: PULSE 65; RESP 16; O2SAT 98
[2024-06-25 09:00] VITALS: BP 99/62; PULSE 65; RESP 16; TEMP 98.2; O2SAT 98
[2024-06-25] MEDS: POTASSIUM CHL 20 Meq TABLET PO ONE (11:37)
[2024-06-25 13:00] VITALS: BP 109/72; PULSE 69; RESP 16; TEMP 98.4; O2SAT 100
== END 2024-06-25 17:30 | disposition left against medical advice (07) | DRG 420 ==
LOC: ER 09:02 → EDBD 09:02 → TELE 12:17 → EAST 06-24 09:11
PROVIDERS: ADMIT Internal Medicine Geriatric Medicine; ATTEND Internal Medicine Geriatric Medicine
DX: E10.10 Type 1 diabetes mellitus with ketoacidosis without coma (principal); E87.1 Hypo-osmolality and hyponatremia; F10.10 Alcohol abuse, uncomplicated; F15.10 Other stimulant abuse, uncomplicated; F32.A Depression, unspecified; F17.210 Nicotine dependence, cigarettes, uncomplicated; E87.6 Hypokalemia; Z59.00 Homelessness unspecified; Z88.8 Allergy status to other drugs, medicaments and biological substances; Z88.0 Allergy status to penicillin; Z91.148 Patient's other noncompliance with medication regimen for other reason; Z79.4 Long term (current) use of insulin; Z79.899 Other long term (current) drug therapy; R00.0 Tachycardia, unspecified
CPT/HCPCS: 36415; 36600; 71045; 80048; 80053; 80320; 81001; 82010; 82805; 82962; 83735; 83930; 84100; 85025; 99291; G0378; J1815; J2405

== ENCOUNTER 2024-06-27 13:17 | Inpatient (IN) | payer MEDICAID ==
[~2024-06-27] VITALS: Ht 177.8 cm; Wt 67.5 kg
[2024-06-27] MEDS: SODIUM CHLORIDE 0.9% 1,000 ML IV ONE (13:30)
[2024-06-27 13:43] VITALS: PULSE 110; RESP 16; O2SAT 97
[2024-06-27 14:04] LABS: Basophils # (auto) 0 10 ^3/uL (0-0.2); Basophils % (auto) 0.9 % (0.0-2.0); Eosinophils # (auto) 0 10 ^3/uL (0-0.8); Eosinophils % (auto) 0.9 % (0.0-7.0); Hematocrit 38.8 % (41.0-53.0); Hemoglobin 13.4 g/dL (13.5-17.5); Lymphocytes # (auto) 1.6 10 ^3/uL (0.4-5.4); Lymphocytes % (auto) 32.9 % (10.0-50.0); Mean Corpuscular Hemoglobin 33.1 pg (28.0-32.0); Mean Corpuscular Hgb Conc. 34.5 g/dL (32.0-36.0); Mean Corpuscular Volume 95.7 fL (80.0-100.0); Monocytes # (auto) 0.7 10 ^3/uL (0-1.3); Monocytes % (auto) 13.9 % (0.0-12.0); Neutrophils # (auto) 2.5 10 ^3/uL (1.6-8.6); Neutrophils % (auto) 51.4 % (37.0-80.0); Nucleated Red Blood Cells % 0.1 %; Platelet Count (auto) 180 10^3/uL (140-450); Red Blood Cells 4.05 10^6/uL (4.5-5.90); Red Cell Distribution Width 14.1 % (11.8-14.3); White Blood Cell 4.8 10^3/uL (4.4-10.8)
[2024-06-27 14:11] LABS: Chloride 100 mmol/L (98-107); Potassium 4.4 mmol/L (3.5-5.1); Sodium 136 mmol/L (136-145)
[2024-06-27 14:12] LABS: Carbon Dioxide 22 mmol/L (20-30)
[2024-06-27 14:13] LABS: Calcium 8.4 mg/dL (8.7-10.4)
[2024-06-27 14:17] LABS: Blood Urea Nitrogen 11 mg/dL (9-23)
[2024-06-27 14:18] LABS: Blood Alcohol 237.3 mg/dL (<10)
[2024-06-27 14:20] LABS: Glucose 567 mg/dL (74-106)
[2024-06-27 14:21] LABS: Anion Gap 14 (5-15)
[2024-06-27 14:22] LABS: BUN/Creatinine Ratio 12.2 (10.0-20.0)
[2024-06-27] MEDS: InsuLIN REG 1unit/0.01ml Soln (100units/ml) IV ONE (14:24)
[2024-06-27 14:31] LABS: Urine Bacteria None Seen /hpf (None Seen)
[2024-06-27 14:51] LABS: Urine Blood 1+ /uL (Negative); Urine Clarity Clear (Clear); Urine Color Light-Yellow (Yellow); Urine Protein, UAD Negative (Negative); Urine Specific Gravity 1.039 (1.001-1.035); Urine Urobilinogen Normal (Negative); Urine WBC <1 /hpf (0 - 3)
[2024-06-27 15:01] LABS: Amphetamine Screen, Urine Pos (NEGATIVE); Barbiturate Scree,Urine Neg (NEGATIVE); Benzodiazephine Screen, Urine Neg (NEGATIVE); Cocaine Screen, Urine Neg (NEGATIVE); Opiate Scree,Urine Neg (NEGATIVE)
[2024-06-27 15:02] LABS: Cannabinoid Screen, Urine Neg (NEGATIVE); Phencyclidine Screen, Urine Neg (NEGATIVE)
[2024-06-27] MEDS ORDERED: DOCUSATE SOD 100 MG CAP PO PRN (15:45)
[2024-06-27] MEDS ORDERED: HYDROcodone-ACET 5/325MG TAB PO PRN (15:45)
[2024-06-27] MEDS ORDERED: ACETAMINOPHEN 325 MG TAB PO PRN (15:45)
[2024-06-27] MEDS ORDERED: ONDANSETRON HCL 4 MG/2 ML VIAL IV PRN (15:45)
[2024-06-27] MEDS ORDERED: DEXTROSE (50%) 50ML SYRG IV PRN (15:45)
[2024-06-27] MEDS: InsuLIN REG 1unit/0.01ml Soln (100units/ml) SC SCH (16:00)
[2024-06-27] MEDS: ACCU-CHEK COMFORT CURVE STRIP VI SCH (16:00)
[2024-06-27] MEDS ORDERED: LORazepam 2MG/ML-1ML VIAL IV PRN (17:00)
[2024-06-27] MEDS ORDERED: NITROGLYCERIN 0.4 MG SL TAB SL PRN (17:00)
[2024-06-27] MEDS ORDERED: MORPHINE SULFATE INJ 2 MG/ml SYRG IV PRN (17:00)
[2024-06-27 20:00] VITALS: PULSE 90; RESP 20; O2SAT 95
[2024-06-27] MEDS: SODIUM CHLOR 0.9% PF (SALINE LOCK) 10ML VIAL/SYR IV SCH (22:13)
[2024-06-27 22:19] VITALS: BP 113/66; PULSE 65; RESP 16; TEMP 98.8; O2SAT 99
[2024-06-28] VITALS (8 sets, daily range): BP systolic 109–121; BP diastolic 67–80; PULSE 60–69; RESP 16–17; TEMP 97.6–98.5; O2SAT 96–100
[2024-06-28 06:00] LABS: Basophils # (auto) 0 10 ^3/uL (0-0.2); Basophils % (auto) 0.9 % (0.0-2.0); Eosinophils # (auto) 0.1 10 ^3/uL (0-0.8); Eosinophils % (auto) 2.6 % (0.0-7.0); Hematocrit 41.4 % (41.0-53.0); Hemoglobin 14.5 g/dL (13.5-17.5); Lymphocytes # (auto) 1.8 10 ^3/uL (0.4-5.4); Lymphocytes % (auto) 37.1 % (10.0-50.0); Mean Corpuscular Hemoglobin 32.6 pg (28.0-32.0); Mean Corpuscular Hgb Conc. 34.9 g/dL (32.0-36.0); Mean Corpuscular Volume 93.3 fL (80.0-100.0); Monocytes # (auto) 0.7 10 ^3/uL (0-1.3); Monocytes % (auto) 13.5 % (0.0-12.0); Neutrophils # (auto) 2.2 10 ^3/uL (1.6-8.6); Neutrophils % (auto) 45.9 % (37.0-80.0); Nucleated Red Blood Cells % 0.2 %; Platelet Count (auto) 163 10^3/uL (140-450); Red Blood Cells 4.44 10^6/uL (4.5-5.90); Red Cell Distribution Width 14.1 % (11.8-14.3); White Blood Cell 4.8 10^3/uL (4.4-10.8)
[2024-06-28 06:16] LABS: Alanine Aminotransferase 31 U/L (7-40); Alkaline Phosphatase 110 U/L (46-116); Anion Gap 8 (5-15); BUN/Creatinine Ratio 20.6 (10.0-20.0); Blood Urea Nitrogen 13 mg/dL (9-23); Calcium 8.9 mg/dL (8.7-10.4); Carbon Dioxide 28 mmol/L (20-30); Chloride 100 mmol/L (98-107); Potassium 3.6 mmol/L (3.5-5.1); Sodium 136 mmol/L (136-145)
[2024-06-28 06:17] LABS: Albumin 3.7 g/dL (3.2-4.8); Aspartate Aminotransferase 32 U/L (13-40); Bilirubin, Total 0.5 mg/dL (0.2-1.0); Total Protein 5.9 g/dL (5.7-8.2)
[2024-06-28 06:24] LABS: Glucose 257 mg/dL (74-106)
[2024-06-28] MEDS: THIAMINE 100mg/ml INJ (200mg/2ml VIAL) IV SCH (09:07)
[2024-06-28] MEDS: MULTIPLE VITAMIN TAB PO SCH (09:07)
[2024-06-28 09:12] LABS: Base Excess 0.4 mmol/L (-2.0-2.0)
[2024-06-28] MEDS: SODIUM CHLORIDE 0.9% 1,000 ML IV SCH (11:41)
[2024-06-28] MEDS: FOLIC ACID 1 MG in D5W 5% 50 ML INJ SCH (11:43)
[2024-06-28] MEDS: INSULIN LANTUS (GLARGINE) 1 /0.01ml (100units/ml) SC ONE (11:47)
[2024-06-28] MEDS: INSULIN LANTUS (GLARGINE) 1 /0.01ml (100units/ml) SC SCH (22:49)
[2024-06-29 05:00] VITALS: BP 117/71; PULSE 57; RESP 16; TEMP 97.8; O2SAT 96
[2024-06-29 06:53] LABS: Basophils # (auto) 0 10 ^3/uL (0-0.2); Basophils % (auto) 0.7 % (0.0-2.0); Eosinophils # (auto) 0.2 10 ^3/uL (0-0.8); Eosinophils % (auto) 2.5 % (0.0-7.0); Hemoglobin 14.9 g/dL (13.5-17.5); Lymphocytes # (auto) 2.9 10 ^3/uL (0.4-5.4); Lymphocytes % (auto) 47.6 % (10.0-50.0); Mean Corpuscular Hemoglobin 32.9 pg (28.0-32.0); Mean Corpuscular Hgb Conc. 35.5 g/dL (32.0-36.0); Mean Corpuscular Volume 92.9 fL (80.0-100.0); Monocytes # (auto) 0.9 10 ^3/uL (0-1.3); Monocytes % (auto) 15.2 % (0.0-12.0); Neutrophils # (auto) 2.1 10 ^3/uL (1.6-8.6); Nucleated Red Blood Cells % 0.5 %; Platelet Count (auto) 186 10^3/uL (140-450); Red Blood Cells 4.52 10^6/uL (4.5-5.90); Red Cell Distribution Width 14.2 % (11.8-14.3); White Blood Cell 6.2 10^3/uL (4.4-10.8)
[2024-06-29 07:11] LABS: Alanine Aminotransferase 28 U/L (7-40); Albumin 3.7 g/dL (3.2-4.8); Alkaline Phosphatase 109 U/L (46-116); Anion Gap 8 (5-15); Aspartate Aminotransferase 28 U/L (13-40); BUN/Creatinine Ratio 20.7 (10.0-20.0); Bilirubin, Total 0.4 mg/dL (0.2-1.0); Blood Urea Nitrogen 12 mg/dL (9-23); Calcium 9.1 mg/dL (8.7-10.4); Carbon Dioxide 25 mmol/L (20-30); Chloride 107 mmol/L (98-107); Glucose 75 mg/dL (74-106); Sodium 140 mmol/L (136-145); Total Protein 5.8 g/dL (5.7-8.2)
[2024-06-29 08:00] VITALS: PULSE 64; RESP 16; O2SAT 96
[2024-06-29 08:48] VITALS: BP 104/70; PULSE 55; RESP 16; TEMP 97.9; O2SAT 100
[2024-06-29 12:21] VITALS: BP 117/70; PULSE 61; RESP 18; TEMP 36.6; O2SAT 100
[2024-06-29 13:00] VITALS: BP 117/70; PULSE 61; RESP 15; TEMP 98.5; O2SAT 100
[2024-06-29 17:00] VITALS: BP 117/73; PULSE 62; RESP 17; TEMP 98.4; O2SAT 98
== END 2024-06-29 15:40 | disposition home or self-care (01) | DRG 420 ==
LOC: EDBD 13:17 → ER 13:24 → TELE 16:52 → TELE-WESTW 22:03
PROVIDERS: ADMIT Internal Medicine Geriatric Medicine; ATTEND Internal Medicine Geriatric Medicine
DX: E10.65 Type 1 diabetes mellitus with hyperglycemia (principal); N17.0 Acute kidney failure with tubular necrosis; G92.8 Other toxic encephalopathy; T51.91XA Toxic effect of unspecified alcohol, accidental (unintentional), initial encounter; E87.1 Hypo-osmolality and hyponatremia; E87.6 Hypokalemia; F17.210 Nicotine dependence, cigarettes, uncomplicated; E86.0 Dehydration; F15.10 Other stimulant abuse, uncomplicated; F10.129 Alcohol abuse with intoxication, unspecified; Z88.0 Allergy status to penicillin; Z59.00 Homelessness unspecified; Z79.4 Long term (current) use of insulin; Y90.7 Blood alcohol level of 200-239 mg/100 ml; Y92.524 Gas station as the place of occurrence of the external cause
CPT/HCPCS: 36415; 71045; 80048; 80053; 80307; 80320; 81001; 82010; 82962; 83525; 85025; 87081; 93005; G0378; J1815; J7060

== ENCOUNTER 2024-06-30 17:07 | Emergency (ER) | payer MEDICAID ==
[~2024-06-30] VITALS: Ht 177.8 cm; Wt 67.5 kg
[2024-06-30 17:53] VITALS: BP 100/61; TEMP 98.1
[2024-06-30 17:54] VITALS: PULSE 112; RESP 18; O2SAT 95
[2024-06-30 18:03] VITALS: PULSE 111
== END 2024-06-30 18:35 | disposition left against medical advice (07) ==
LOC: EDUNIT# 17:07 → EDBD 17:07 → ER 17:07
DX: R53.1 Weakness (principal); Z53.21 Procedure and treatment not carried out due to patient leaving prior to being seen by health care provider
CPT/HCPCS: 93005

== ENCOUNTER 2024-07-08 18:35 | Inpatient (IN) | payer MEDICAID ==
[~2024-07-08] VITALS: Ht 177.8 cm; Wt 70.4 kg
[2024-07-08 19:28] LABS: Basophils # (auto) 0 10 ^3/uL (0-0.2); Eosinophils # (auto) 0.1 10 ^3/uL (0-0.8); Eosinophils % (auto) 1.5 % (0.0-7.0); Hematocrit 41.4 % (41.0-53.0); Hemoglobin 13.9 g/dL (13.5-17.5); Lymphocytes # (auto) 1.1 10 ^3/uL (0.4-5.4); Lymphocytes % (auto) 31.1 % (10.0-50.0); Mean Corpuscular Hemoglobin 32.5 pg (28.0-32.0); Mean Corpuscular Hgb Conc. 33.6 g/dL (32.0-36.0); Mean Corpuscular Volume 96.6 fL (80.0-100.0); Monocytes # (auto) 0.5 10 ^3/uL (0-1.3); Monocytes % (auto) 14.2 % (0.0-12.0); Neutrophils # (auto) 1.8 10 ^3/uL (1.6-8.6); Neutrophils % (auto) 52.2 % (37.0-80.0); Nucleated Red Blood Cells % 0.1 %; Red Blood Cells 4.29 10^6/uL (4.5-5.90); Red Cell Distribution Width 13.3 % (11.8-14.3); White Blood Cell 3.5 10^3/uL (4.4-10.8)
[2024-07-08 19:48] LABS: Alanine Aminotransferase 34 U/L (7-40); Albumin 4.5 g/dL (3.2-4.8); Alkaline Phosphatase 175 U/L (46-116); Anion Gap 18 (5-15); Aspartate Aminotransferase 25 U/L (13-40); BUN/Creatinine Ratio 11.4 (10.0-20.0); Blood Urea Nitrogen 12 mg/dL (9-23); Calcium 9.1 mg/dL (8.7-10.4); Carbon Dioxide 19 mmol/L (20-30); Chloride 95 mmol/L (98-107); Lipase 47 U/L (12-53); Potassium 5.3 mmol/L (3.5-5.1); Sodium 132 mmol/L (136-145)
[2024-07-08 19:50] LABS: Bilirubin, Total 0.5 mg/dL (0.2-1.0); Total Protein 6.6 g/dL (5.7-8.2)
[2024-07-08] MEDS: SODIUM CHLORIDE 0.9% 2,000 ML IV ONE (20:12)
[2024-07-08 20:14] LABS: Glucose 715 mg/dL (74-106)
[2024-07-08] MEDS: InsuLIN REG 1unit/0.01ml Soln (100units/ml) IV ONE ×2 (20:22→20:30)
[2024-07-08] MEDS: SODIUM ZIRCONIUM CYCL 10 GM PAK PO ONE (21:25)
[2024-07-08] MEDS: SODIUM CHLORIDE 0.9% 1,000 ML IV SCH ×2 (22:28→23:15)
[2024-07-08] MEDS: ACCU-CHEK COMFORT CURVE STRIP VI SCH ×2 (22:30→23:30)
[2024-07-08 22:55] VITALS: PULSE 77; RESP 16; O2SAT 96
[2024-07-08] MEDS ORDERED: DOCUSATE SOD 100 MG CAP PO PRN (23:15)
[2024-07-08] MEDS ORDERED: ACETAMINOPHEN 325 MG TAB PO PRN (23:15)
[2024-07-08] MEDS ORDERED: ONDANSETRON HCL 4 MG/2 ML VIAL IV PRN (23:15)
[2024-07-08] MEDS ORDERED: HYDROcodone-ACET 5/325MG TAB PO PRN (23:15)
[2024-07-08] MEDS: INSULIN DRIP 100 UNIT/100ML 100 ML IV SCH (23:27)
[2024-07-08] MEDS ORDERED: MORPHINE SULFATE INJ 2 MG/ml SYRG IV PRN (23:45)
[2024-07-08] MEDS ORDERED: NITROGLYCERIN 0.4 MG SL TAB SL PRN (23:45)
[2024-07-09 01:17] LABS: Urine Bacteria None Seen /hpf (None Seen)
[2024-07-09 01:32] LABS: Urine Blood Negative /uL (Negative); Urine Clarity Clear (Clear); Urine Color Light-Yellow (Yellow); Urine Protein, UAD Negative (Negative); Urine Specific Gravity 1.025 (1.001-1.035); Urine Urobilinogen Normal (Negative); Urine WBC <1 /hpf (0 - 3)
[2024-07-09 01:35] LABS: Amphetamine Screen, Urine Pos (NEGATIVE); Barbiturate Scree,Urine Neg (NEGATIVE); Benzodiazephine Screen, Urine Neg (NEGATIVE); Cannabinoid Screen, Urine Neg (NEGATIVE); Cocaine Screen, Urine Neg (NEGATIVE); Opiate Scree,Urine Neg (NEGATIVE); Phencyclidine Screen, Urine Neg (NEGATIVE)
[2024-07-09] MEDS: SODIUM CHLORIDE 0.9% 1,000 ML IV SCH ×2 (01:55→14:45)
[2024-07-09 03:08] LABS: Basophils # (auto) 0 10 ^3/uL (0-0.2); Basophils % (auto) 1.1 % (0.0-2.0); Eosinophils # (auto) 0.1 10 ^3/uL (0-0.8); Eosinophils % (auto) 3.2 % (0.0-7.0); Hematocrit 36.7 % (41.0-53.0); Hemoglobin 12.8 g/dL (13.5-17.5); Lymphocytes # (auto) 1.5 10 ^3/uL (0.4-5.4); Lymphocytes % (auto) 39.1 % (10.0-50.0); Mean Corpuscular Hemoglobin 33.3 pg (28.0-32.0); Mean Corpuscular Hgb Conc. 34.9 g/dL (32.0-36.0); Mean Corpuscular Volume 95.3 fL (80.0-100.0); Monocytes # (auto) 0.6 10 ^3/uL (0-1.3); Monocytes % (auto) 15.1 % (0.0-12.0); Neutrophils # (auto) 1.6 10 ^3/uL (1.6-8.6); Neutrophils % (auto) 41.5 % (37.0-80.0); Red Blood Cells 3.86 10^6/uL (4.5-5.90); Red Cell Distribution Width 13.4 % (11.8-14.3); White Blood Cell 3.8 10^3/uL (4.4-10.8)
[2024-07-09 03:25] LABS: Alanine Aminotransferase 27 U/L (7-40); Albumin 3.7 g/dL (3.2-4.8); Alkaline Phosphatase 135 U/L (46-116); Anion Gap 8 (5-15); Aspartate Aminotransferase 19 U/L (13-40); Bilirubin, Total 0.3 mg/dL (0.2-1.0); Calcium 7.8 mg/dL (8.7-10.4); Carbon Dioxide 23 mmol/L (20-30); Chloride 107 mmol/L (98-107); Potassium 3.6 mmol/L (3.5-5.1); Sodium 138 mmol/L (136-145); Total Protein 5.7 g/dL (5.7-8.2)
[2024-07-09] MEDS ORDERED: SODIUM CHLORIDE 0.9% 1,000 ML IV SCH ×2 (03:30→14:45)
[2024-07-09 03:32] LABS: BUN/Creatinine Ratio 8.9 (10.0-20.0); Blood Urea Nitrogen < 5 mg/dL (9-23); Glucose 164 mg/dL (74-106)
[2024-07-09] MEDS ORDERED: DEXTROSE (50%) 50ML SYRG IV PRN (04:45)
[2024-07-09] MEDS: D5W/SOD CHLO 0.9% 1,000 ML IV SCH (04:45)
[2024-07-09] MEDS: ACCU-CHEK COMFORT CURVE STRIP VI SCH (07:58)
[2024-07-09] MEDS: InsuLIN REG 1unit/0.01ml Soln (100units/ml) SC SCH (08:07)
[2024-07-09 08:30] VITALS: PULSE 65; RESP 15; O2SAT 97
[2024-07-09 14:15] VITALS: BP 122/74; PULSE 69; RESP 18; TEMP 98.1; O2SAT 97
[2024-07-09 17:00] VITALS: BP 113/77; PULSE 69; RESP 16; TEMP 97.9; O2SAT 97
[2024-07-09 20:00] VITALS: PULSE 67; RESP 17; O2SAT 97
[2024-07-09 21:00] VITALS: BP 111/76; PULSE 67; RESP 17; TEMP 98.5; O2SAT 97
[2024-07-10] VITALS (8 sets, daily range): BP systolic 109–141; BP diastolic 73–82; PULSE 61–76; RESP 16–20; TEMP 97.6–98.3; O2SAT 96–98
[2024-07-10] MEDS: INSULIN LANTUS (GLARGINE) 1 /0.01ml (100units/ml) SC ONE (00:25)
[2024-07-10] MEDS: INSULIN LANTUS (GLARGINE) 1 /0.01ml (100units/ml) SC SCH (06:21)
[2024-07-10 07:20] LABS: Basophils # (auto) 0 10 ^3/uL (0-0.2); Basophils % (auto) 0.5 % (0.0-2.0); Eosinophils # (auto) 0.1 10 ^3/uL (0-0.8); Eosinophils % (auto) 1.9 % (0.0-7.0); Hematocrit 39.9 % (41.0-53.0); Hemoglobin 14.2 g/dL (13.5-17.5); Lymphocytes # (auto) 1.4 10 ^3/uL (0.4-5.4); Lymphocytes % (auto) 27.1 % (10.0-50.0); Mean Corpuscular Hemoglobin 33.3 pg (28.0-32.0); Mean Corpuscular Hgb Conc. 35.7 g/dL (32.0-36.0); Mean Corpuscular Volume 93.3 fL (80.0-100.0); Monocytes # (auto) 0.7 10 ^3/uL (0-1.3); Monocytes % (auto) 12.5 % (0.0-12.0); Nucleated Red Blood Cells % 0.1 %; Red Blood Cells 4.28 10^6/uL (4.5-5.90); Red Cell Distribution Width 13.6 % (11.8-14.3); White Blood Cell 5.2 10^3/uL (4.4-10.8)
[2024-07-10 07:25] LABS: Alanine Aminotransferase 23 U/L (7-40); Albumin 3.7 g/dL (3.2-4.8); Alkaline Phosphatase 119 U/L (46-116); Anion Gap 7 (5-15); Aspartate Aminotransferase 18 U/L (13-40); BUN/Creatinine Ratio 16.4 (10.0-20.0); Blood Urea Nitrogen 10 mg/dL (9-23); Calcium 8.9 mg/dL (8.7-10.4); Carbon Dioxide 27 mmol/L (20-30); Chloride 103 mmol/L (98-107); Glucose 152 mg/dL (74-106); Magnesium 1.5 mg/dL (1.6-2.6); Potassium 3.7 mmol/L (3.5-5.1); Sodium 137 mmol/L (136-145)
[2024-07-10 07:26] LABS: Bilirubin, Total 0.3 mg/dL (0.2-1.0); Total Protein 5.8 g/dL (5.7-8.2)
[2024-07-10] MEDS: MAGNESIUM SULFATE 1GM/100ML 100 ML IV SCH (13:00)
[2024-07-11 01:00] VITALS: BP 127/79; PULSE 57; RESP 19; TEMP 98.1; O2SAT 96
[2024-07-11 05:00] VITALS: BP 101/73; PULSE 60; RESP 18; TEMP 97.8; O2SAT 97
[2024-07-11 06:03] LABS: Basophils # (auto) 0 10 ^3/uL (0-0.2); Basophils % (auto) 0.6 % (0.0-2.0); Eosinophils # (auto) 0.1 10 ^3/uL (0-0.8); Eosinophils % (auto) 2.5 % (0.0-7.0); Hematocrit 41.3 % (41.0-53.0); Hemoglobin 14.4 g/dL (13.5-17.5); Lymphocytes # (auto) 1.2 10 ^3/uL (0.4-5.4); Lymphocytes % (auto) 26.8 % (10.0-50.0); Mean Corpuscular Hemoglobin 32.9 pg (28.0-32.0); Mean Corpuscular Hgb Conc. 34.8 g/dL (32.0-36.0); Mean Corpuscular Volume 94.6 fL (80.0-100.0); Monocytes # (auto) 0.7 10 ^3/uL (0-1.3); Monocytes % (auto) 15.2 % (0.0-12.0); Neutrophils # (auto) 2.4 10 ^3/uL (1.6-8.6); Neutrophils % (auto) 54.9 % (37.0-80.0); Red Blood Cells 4.37 10^6/uL (4.5-5.90); Red Cell Distribution Width 13.7 % (11.8-14.3); White Blood Cell 4.3 10^3/uL (4.4-10.8)
[2024-07-11 06:27] LABS: Alanine Aminotransferase 20 U/L (7-40); Albumin 3.6 g/dL (3.2-4.8); Alkaline Phosphatase 116 U/L (46-116); Anion Gap 3 (5-15); Aspartate Aminotransferase 19 U/L (13-40); BUN/Creatinine Ratio 18.2 (10.0-20.0); Blood Urea Nitrogen 14 mg/dL (9-23); Calcium 8.9 mg/dL (8.7-10.4); Carbon Dioxide 28 mmol/L (20-30); Chloride 105 mmol/L (98-107); Magnesium 1.7 mg/dL (1.6-2.6); Sodium 136 mmol/L (136-145)
[2024-07-11 06:28] LABS: Bilirubin, Total 0.3 mg/dL (0.2-1.0); Glucose 282 mg/dL (74-106); Total Protein 5.6 g/dL (5.7-8.2)
[2024-07-11 08:00] VITALS: PULSE 68; RESP 17; O2SAT 97
[2024-07-11 09:17] VITALS: BP 103/66; PULSE 58; RESP 16; TEMP 97.8; O2SAT 98
[2024-07-11 13:10] VITALS: BP 101/51; PULSE 64; RESP 16; TEMP 98; O2SAT 96
[2024-07-11] MEDS ORDERED: INSU-567 XX (18:12)
== END 2024-07-11 14:02 | disposition left against medical advice (07) | DRG 420 ==
LOC: ER 18:35 → EDBD 18:35 → TELE 23:37 → EAST 07-09 14:03
PROVIDERS: ADMIT Internal Medicine Geriatric Medicine; ATTEND Internal Medicine Geriatric Medicine
DX: E10.10 Type 1 diabetes mellitus with ketoacidosis without coma (principal); N17.0 Acute kidney failure with tubular necrosis; E87.8 Other disorders of electrolyte and fluid balance, not elsewhere classified; I10 Essential (primary) hypertension; D72.819 Decreased white blood cell count, unspecified; E87.5 Hyperkalemia; F41.9 Anxiety disorder, unspecified; F32.A Depression, unspecified; E87.6 Hypokalemia; Z53.29 Procedure and treatment not carried out because of patient's decision for other reasons; F19.90 Other psychoactive substance use, unspecified, uncomplicated; Z79.899 Other long term (current) drug therapy; Z88.0 Allergy status to penicillin; Z88.8 Allergy status to other drugs, medicaments and biological substances
CPT/HCPCS: 36415; 80053; 80307; 81001; 82010; 82962; 83690; 83735; 83880; 85025; 87081; 96361; 96374; 99291; G0378; J1815

== ENCOUNTER 2024-07-22 14:57 | Inpatient (IN) | payer MEDICAID ==
[~2024-07-22] VITALS: Ht 175.3 cm; Wt 98.7 kg
[~2024-07-22 14:57] MED LIST changes: +INSU-567 XX
[2024-07-22] MEDS: ONDANSETRON HCL 4 MG/2 ML VIAL IV ONE (15:15)
[2024-07-22] MEDS: SODIUM CHLORIDE 0.9% 1,000 ML IVB ONE (15:50)
[2024-07-22] MEDS: InsuLIN REG 1unit/0.01ml Soln (100units/ml) IV ONE (16:10)
[2024-07-22 16:21] LABS: Basophils # (auto) 0.1 10 ^3/uL (0-0.2); Basophils % (auto) 1.9 % (0.0-2.0); Eosinophils # (auto) 0.1 10 ^3/uL (0-0.8); Eosinophils % (auto) 2.7 % (0.0-7.0); Hematocrit 45.2 % (41.0-53.0); Hemoglobin 15.6 g/dL (13.5-17.5); Lymphocytes # (auto) 1.9 10 ^3/uL (0.4-5.4); Lymphocytes % (auto) 38.6 % (10.0-50.0); Mean Corpuscular Hemoglobin 32.8 pg (28.0-32.0); Mean Corpuscular Hgb Conc. 34.5 g/dL (32.0-36.0); Monocytes # (auto) 0.5 10 ^3/uL (0-1.3); Monocytes % (auto) 9.1 % (0.0-12.0); Neutrophils # (auto) 2.4 10 ^3/uL (1.6-8.6); Neutrophils % (auto) 47.7 % (37.0-80.0); Nucleated Red Blood Cells % 0.2 %; Platelet Count (auto) 253 10^3/uL (140-450); Red Blood Cells 4.76 10^6/uL (4.5-5.90); Red Cell Distribution Width 13.8 % (11.8-14.3)
[2024-07-22 16:34] VITALS: PULSE 84; RESP 18; O2SAT 98
[2024-07-22 16:48] LABS: Alanine Aminotransferase 29 U/L (7-40); Albumin 4.8 g/dL (3.2-4.8); Alkaline Phosphatase 161 U/L (46-116); Anion Gap 20 (5-15); Aspartate Aminotransferase 28 U/L (13-40); BUN/Creatinine Ratio 8.3 (10.0-20.0); Blood Urea Nitrogen 7 mg/dL (9-23); Calcium 9.3 mg/dL (8.7-10.4); Carbon Dioxide 18 mmol/L (20-30); Chloride 94 mmol/L (98-107); Glucose 299 mg/dL (74-106); Potassium 4.3 mmol/L (3.5-5.1); Sodium 132 mmol/L (136-145)
[2024-07-22 16:49] LABS: Bilirubin, Total 0.4 mg/dL (0.2-1.0); Total Protein 7.6 g/dL (5.7-8.2)
[2024-07-22 16:55] LABS: Lipase 29 U/L (12-53)
[2024-07-22] MEDS ORDERED: DOCUSATE SOD 100 MG CAP PO PRN (19:45)
[2024-07-22] MEDS ORDERED: ONDANSETRON HCL 4 MG/2 ML VIAL IV PRN (19:45)
[2024-07-22] MEDS ORDERED: NITROGLYCERIN 0.4 MG SL TAB SL PRN (19:45)
[2024-07-22 19:54] LABS: Base Excess -7.4 mmol/L (-2.0-3.0)
[2024-07-22 20:09] LABS: Magnesium 1.8 mg/dL (1.6-2.6)
[2024-07-22 20:11] LABS: Phosphorus 3.9 mg/dL (2.4-5.1)
[2024-07-22] MEDS: INSULIN LANTUS (GLARGINE) 1 /0.01ml (100units/ml) SC ONE (20:14)
[2024-07-22] MEDS: metroNIDAZOLE 500MG/100ML 100 ML IV ONE (20:14)
[2024-07-22 20:37] VITALS: PULSE 85; RESP 14; O2SAT 98
[2024-07-22] MEDS: SODIUM CHLORIDE 0.9% 1,000 ML IV SCH ×2 (20:38→23:48)
[2024-07-22] MEDS: INSULIN DRIP 100 UNIT/100ML 100 ML IV SCH (20:54)
[2024-07-22] MEDS: ACCU-CHEK COMFORT CURVE STRIP VI SCH (21:08)
[2024-07-22 22:04] LABS: Urine Bacteria FEW /hpf (None Seen); Urine Blood Negative /uL (Negative); Urine Clarity Clear (Clear); Urine Color Light-Yellow (Yellow); Urine Protein, UAD Negative (Negative); Urine Specific Gravity 1.019 (1.001-1.035); Urine Urobilinogen Normal (Negative); Urine WBC 5 /hpf (0 - 3)
[2024-07-22 22:16] LABS: Amphetamine Screen, Urine Pos (NEGATIVE); Barbiturate Scree,Urine Neg (NEGATIVE); Benzodiazephine Screen, Urine Neg (NEGATIVE); Cannabinoid Screen, Urine Neg (NEGATIVE); Cocaine Screen, Urine Neg (NEGATIVE); Opiate Scree,Urine Neg (NEGATIVE); Phencyclidine Screen, Urine Neg (NEGATIVE)
[2024-07-23] MEDS ORDERED: SODIUM CHLORIDE 0.9% 1,000 ML IV SCH (01:45)
[2024-07-23 01:46] LABS: Chloride 105 mmol/L (98-107); Potassium 4.1 mmol/L (3.5-5.1); Sodium 138 mmol/L (136-145)
[2024-07-23 01:47] LABS: Anion Gap 9 (5-15); Calcium 8.1 mg/dL (8.7-10.4); Carbon Dioxide 24 mmol/L (20-30)
[2024-07-23] MEDS: DEXTROSE (50%) 50ML SYRG IV PRN (01:51)
[2024-07-23 01:52] LABS: Blood Urea Nitrogen 7 mg/dL (9-23)
[2024-07-23 01:58] LABS: Glucose 68 mg/dL (74-106)
[2024-07-23 02:02] LABS: BUN/Creatinine Ratio 10.9 (10.0-20.0)
[2024-07-23] MEDS: D5W/SOD CHLO 0.9% 1,000 ML IV SCH (02:04)
[2024-07-23] MEDS ORDERED: DEXTROSE (50%) 50ML SYRG IV PRN (04:15)
[2024-07-23] MEDS: metroNIDAZOLE 500MG/100ML 100 ML IV SCH (04:17)
[2024-07-23 04:32] LABS: Basophils # (auto) 0 10 ^3/uL (0-0.2); Basophils % (auto) 0.8 % (0.0-2.0); Eosinophils # (auto) 0.1 10 ^3/uL (0-0.8); Eosinophils % (auto) 3.3 % (0.0-7.0); Hematocrit 39.2 % (41.0-53.0); Lymphocytes # (auto) 1.1 10 ^3/uL (0.4-5.4); Lymphocytes % (auto) 27.5 % (10.0-50.0); Mean Corpuscular Hemoglobin 33.4 pg (28.0-32.0); Mean Corpuscular Hgb Conc. 35.7 g/dL (32.0-36.0); Mean Corpuscular Volume 93.5 fL (80.0-100.0); Monocytes # (auto) 0.5 10 ^3/uL (0-1.3); Monocytes % (auto) 11.9 % (0.0-12.0); Neutrophils # (auto) 2.2 10 ^3/uL (1.6-8.6); Neutrophils % (auto) 56.5 % (37.0-80.0); Nucleated Red Blood Cells % 0.3 %; Platelet Count (auto) 202 10^3/uL (140-450); Red Cell Distribution Width 13.9 % (11.8-14.3); White Blood Cell 3.9 10^3/uL (4.4-10.8)
[2024-07-23] MEDS: InsuLIN REG 1unit/0.01ml Soln (100units/ml) SC SCH (04:37)
[2024-07-23] MEDS: ACCU-CHEK COMFORT CURVE STRIP VI SCH (04:37)
[2024-07-23] MEDS: SODIUM CHLORIDE 0.9% 1,000 ML IV SCH (04:49)
[2024-07-23 04:59] LABS: Alanine Aminotransferase 23 U/L (7-40); Alkaline Phosphatase 120 U/L (46-116); Anion Gap 5 (5-15); Aspartate Aminotransferase 33 U/L (13-40); BUN/Creatinine Ratio 10.3 (10.0-20.0); Blood Urea Nitrogen 7 mg/dL (9-23); Calcium 8.4 mg/dL (8.7-10.4); Carbon Dioxide 28 mmol/L (20-30); Chloride 103 mmol/L (98-107); Potassium 3.9 mmol/L (3.5-5.1); Sodium 136 mmol/L (136-145)
[2024-07-23 05:00] LABS: Albumin 3.7 g/dL (3.2-4.8); Bilirubin, Total 0.5 mg/dL (0.2-1.0)
[2024-07-23 05:02] LABS: Glucose 169 mg/dL (74-106)
[2024-07-23 07:49] LABS: Chloride 101 mmol/L (98-107); Potassium 3.4 mmol/L (3.5-5.1); Sodium 135 mmol/L (136-145)
[2024-07-23 07:50] LABS: Anion Gap 6 (5-15); Calcium 8.6 mg/dL (8.7-10.4); Carbon Dioxide 28 mmol/L (20-30)
[2024-07-23 07:55] LABS: BUN/Creatinine Ratio 12.3 (10.0-20.0); Blood Urea Nitrogen 8 mg/dL (9-23); Glucose 84 mg/dL (74-106)
[2024-07-23 08:00] VITALS: PULSE 85
[2024-07-23 09:00] VITALS: BP 113/71; PULSE 68; RESP 18; TEMP 97.8; O2SAT 96
[2024-07-23] MEDS: ENOXAPARIN SOD 40 MG/0.4 ML SYRINGE SC SCH (10:00)
[2024-07-23] MEDS: INSULIN LANTUS (GLARGINE) 1 /0.01ml (100units/ml) SC SCH (10:04)
[2024-07-23] MEDS: chlordiazePOXIDE HCL 25 MG CAP PO SCH (12:44)
[2024-07-23 13:00] VITALS: BP 117/81; PULSE 66; RESP 18; TEMP 97.7; O2SAT 98
[2024-07-23 14:24] LABS: Anion Gap 6 (5-15); Carbon Dioxide 27 mmol/L (20-30); Chloride 98 mmol/L (98-107); Potassium 4.4 mmol/L (3.5-5.1); Sodium 131 mmol/L (136-145)
[2024-07-23 14:30] LABS: BUN/Creatinine Ratio 16.7 (10.0-20.0); Blood Urea Nitrogen 13 mg/dL (9-23)
[2024-07-23 14:31] LABS: Glucose 286 mg/dL (74-106)
[2024-07-23 17:00] VITALS: BP 103/71; PULSE 71; RESP 18; TEMP 98.7; O2SAT 96
[2024-07-23] MEDS: FOLIC ACID 1 MG, MULTIPLE VITAMIN 10 ML, MAGNESIUM SULF SDV 50% 8 MEQ, THIAMINE INJ 100... INJ SCH (18:16)
[2024-07-23 20:00] VITALS: PULSE 93
[2024-07-23 21:00] VITALS: BP 126/80; PULSE 74; RESP 16; TEMP 98.4; O2SAT 96
[2024-07-23] MEDS ORDERED: ACETAMINOPHEN 325 MG TAB PO PRN (23:45)
[2024-07-23] MEDS: HYDROcodone-ACET 5/325MG TAB PO PRN (23:52)
[2024-07-24 01:00] VITALS: BP 123/81; PULSE 78; RESP 16; TEMP 98; O2SAT 96
[2024-07-24 08:00] VITALS: PULSE 93
[2024-07-24 09:00] VITALS: BP 118/78; PULSE 75; RESP 16; TEMP 97.9; O2SAT 97
[2024-07-24] MEDS: chlordiazePOXIDE HCL 25 MG CAP PO SCH (10:00)
[2024-07-24 13:00] VITALS: BP 104/78; PULSE 72; RESP 14; TEMP 97.3; O2SAT 97
[2024-07-24 17:00] VITALS: BP 124/76; PULSE 67; RESP 18; TEMP 97.9; O2SAT 99
[2024-07-25] MEDS ORDERED: chlordiazePOXIDE HCL 25 MG CAP PO SCH (10:00)
[2024-07-26] MEDS ORDERED: chlordiazePOXIDE HCL 25 MG CAP PO SCH (07:00)
== END 2024-07-24 19:15 | disposition left against medical advice (07) | DRG 420 ==
LOC: ER 14:57 → EDBD 14:57 → TELE 19:40 → TELE-WESTW 19:40
PROVIDERS: ADMIT Nurse Practitioner Family; ATTEND Nurse Practitioner Family
DX: E10.10 Type 1 diabetes mellitus with ketoacidosis without coma (principal); E86.0 Dehydration; K52.9 Noninfective gastroenteritis and colitis, unspecified; R00.0 Tachycardia, unspecified; F15.10 Other stimulant abuse, uncomplicated; F10.120 Alcohol abuse with intoxication, uncomplicated; F32.A Depression, unspecified; F17.210 Nicotine dependence, cigarettes, uncomplicated; Y90.7 Blood alcohol level of 200-239 mg/100 ml; Z53.21 Procedure and treatment not carried out due to patient leaving prior to being seen by health care provider; Z91.199 Patient's noncompliance with other medical treatment and regimen due to unspecified reason; Z59.00 Homelessness unspecified; Z88.0 Allergy status to penicillin; Z79.4 Long term (current) use of insulin; Z88.8 Allergy status to other drugs, medicaments and biological substances
CPT/HCPCS: 36415; 36600; 74176; 80048; 80053; 80307; 80320; 81001; 82010; 82805; 82962; 83690; 83735; 83930; 84100; 85025; G0378; J1815; J2405; J3490

== ENCOUNTER 2024-07-27 21:33 | Emergency (ER) | payer MEDICAID ==
[~2024-07-27] VITALS: Ht 170.2 cm; Wt 77.1 kg
[2024-07-27 21:44] VITALS: BP 108/67; PULSE 110; RESP 16; O2SAT 94
== END 2024-07-27 22:29 | disposition left against medical advice (07) ==
LOC: ER 21:33 → EDBD 21:33 → EDUNIT# 21:33 → ER 22:19
DX: F10.129 Alcohol abuse with intoxication, unspecified (principal); F17.210 Nicotine dependence, cigarettes, uncomplicated; F15.10 Other stimulant abuse, uncomplicated; Z59.00 Homelessness unspecified; Z88.0 Allergy status to penicillin; Z88.6 Allergy status to analgesic agent; Y90.8 Blood alcohol level of 240 mg/100 ml or more

== ENCOUNTER 2024-08-04 01:49 | Inpatient (IN) | payer MEDICAID ==
[~2024-08-04] VITALS: Ht 177.8 cm; Wt 68.3 kg
[2024-08-04] VITALS (24 sets, daily range): BP systolic 102–119; BP diastolic 58–75; PULSE 72–94; RESP 10–18; TEMP 97.9–98.5; O2SAT 95–100
[2024-08-04 02:32] LABS: Basophils # (auto) 0.1 10 ^3/uL (0-0.2); Basophils % (auto) 0.7 % (0.0-2.0); Eosinophils # (auto) 0 10 ^3/uL (0-0.8); Eosinophils % (auto) 0.3 % (0.0-7.0); Hematocrit 48.6 % (41.0-53.0); Hemoglobin 16.8 g/dL (13.5-17.5); Lymphocytes # (auto) 1.4 10 ^3/uL (0.4-5.4); Lymphocytes % (auto) 20.7 % (10.0-50.0); Mean Corpuscular Hemoglobin 33.4 pg (28.0-32.0); Mean Corpuscular Hgb Conc. 34.6 g/dL (32.0-36.0); Mean Corpuscular Volume 96.4 fL (80.0-100.0); Monocytes # (auto) 0.6 10 ^3/uL (0-1.3); Monocytes % (auto) 8.9 % (0.0-12.0); Neutrophils # (auto) 4.9 10 ^3/uL (1.6-8.6); Neutrophils % (auto) 69.4 % (37.0-80.0); Nucleated Red Blood Cells % 0.1 %; Platelet Count (auto) 261 10^3/uL (140-450); Red Blood Cells 5.04 10^6/uL (4.5-5.90); Red Cell Distribution Width 13.6 % (11.8-14.3)
[2024-08-04] MEDS: SODIUM CHLORIDE 0.9% 2,000 ML IV ONE (02:45)
[2024-08-04 02:52] LABS: Alanine Aminotransferase 45 U/L (7-40); Albumin 5.2 g/dL (3.2-4.8); Alkaline Phosphatase 234 U/L (46-116); Anion Gap 32 (5-15); Aspartate Aminotransferase 31 U/L (13-40); BUN/Creatinine Ratio 12.1 (10.0-20.0); Bilirubin, Total 0.5 mg/dL (0.2-1.0); Blood Urea Nitrogen 13 mg/dL (9-23); Calcium 9.7 mg/dL (8.7-10.4); Carbon Dioxide 12 mmol/L (20-30); Chloride 91 mmol/L (98-107); Sodium 135 mmol/L (136-145); Total Protein 8.2 g/dL (5.7-8.2)
[2024-08-04 02:52] LABS: Urine Bacteria None Seen /hpf (None Seen)
[2024-08-04 03:13] LABS: Amphetamine Screen, Urine Pos (NEGATIVE); Barbiturate Scree,Urine Neg (NEGATIVE); Benzodiazephine Screen, Urine Neg (NEGATIVE); Cocaine Screen, Urine Neg (NEGATIVE); Opiate Scree,Urine Neg (NEGATIVE)
[2024-08-04 03:14] LABS: Cannabinoid Screen, Urine Neg (NEGATIVE); Phencyclidine Screen, Urine Neg (NEGATIVE)
[2024-08-04 03:14] LABS: Glucose 424 mg/dL (74-106); Lactic Acid w/Reflex 5.1 mmol/L (0.4-2.0)
[2024-08-04 03:36] LABS: Urine Blood Negative /uL (Negative); Urine Clarity Clear (Clear); Urine Color Light-Yellow (Yellow); Urine Protein, UAD Negative (Negative); Urine Specific Gravity 1.027 (1.001-1.035); Urine Urobilinogen Normal (Negative); Urine WBC 1 /hpf (0 - 3)
[2024-08-04] MEDS: InsuLIN REG 1unit/0.01ml Soln (100units/ml) IV ONE (04:02)
[2024-08-04] MEDS: ONDANSETRON HCL 4 MG/2 ML VIAL IM ONE (04:03)
[2024-08-04 04:04] LABS: Base Excess -12.5 mmol/L (-2.0-3.0)
[2024-08-04] MEDS: ONDANSETRON HCL 4 MG/2 ML VIAL IV ONE (04:04)
[2024-08-04] MEDS: SODIUM CHLORIDE 0.9% 3,000 ML IV ONE (04:49)
[2024-08-04] MEDS: SODIUM BICARB 8.4% 50Meq/50ml SYR Vial IV ONE ×2 (04:58→05:08)
[2024-08-04] MEDS ORDERED: SODIUM BICARB 50mEq/50ml Vial 50 ML in SOD CHL 0.45% 1,000 ML IV ONE (05:15)
[2024-08-04] MEDS ORDERED: DEXTROSE (50%) 50ML SYRG IV PRN ×2 (05:15→10:15)
[2024-08-04] MEDS: INSULIN LANTUS (GLARGINE) 1 /0.01ml (100units/ml) SC ONE (05:18)
[2024-08-04] MEDS: INSULIN DRIP 100 UNIT/100ML 100 ML IV SCH (05:20)
[2024-08-04] MEDS: SODIUM BICARB 50mEq/50ml Vial 100 ML in D5W 5% 1,000 ML IV ONE (05:30)
[2024-08-04 06:21] LABS: Chloride 100 mmol/L (98-107); Potassium 3.9 mmol/L (3.5-5.1); Sodium 143 mmol/L (136-145)
[2024-08-04 06:22] LABS: Anion Gap 24 (5-15); Calcium 8.4 mg/dL (8.7-10.4); Carbon Dioxide 19 mmol/L (20-30)
[2024-08-04 06:27] LABS: BUN/Creatinine Ratio 14.3 (10.0-20.0); Blood Urea Nitrogen 13 mg/dL (9-23)
[2024-08-04 06:28] LABS: Glucose 286 mg/dL (74-106)
[2024-08-04] MEDS: ACCU-CHEK COMFORT CURVE STRIP VI SCH ×3 (06:50→21:12)
[2024-08-04] MEDS ORDERED: MORPHINE SULFATE INJ 2 MG/ml SYRG IV PRN (10:15)
[2024-08-04] MEDS ORDERED: ONDANSETRON HCL 4 MG/2 ML VIAL IV PRN (10:15)
[2024-08-04] MEDS ORDERED: DOCUSATE SOD 100 MG CAP PO PRN (10:15)
[2024-08-04] MEDS ORDERED: NITROGLYCERIN 0.4 MG SL TAB SL PRN (10:15)
[2024-08-04] MEDS: SODIUM CHLORIDE 0.9% 1,000 ML IV SCH (11:10)
[2024-08-04 11:13] LABS: Base Excess -1.8 mmol/L (-2.0-3.0)
[2024-08-04 11:43] LABS: Chloride 99 mmol/L (98-107); Potassium 3.5 mmol/L (3.5-5.1); Sodium 138 mmol/L (136-145)
[2024-08-04 11:44] LABS: Anion Gap 15 (5-15); Carbon Dioxide 24 mmol/L (20-30)
[2024-08-04 11:45] LABS: Calcium 8.3 mg/dL (8.7-10.4)
[2024-08-04 11:50] LABS: BUN/Creatinine Ratio 13.5 (10.0-20.0); Blood Urea Nitrogen 10 mg/dL (9-23); Magnesium 1.7 mg/dL (1.6-2.6)
[2024-08-04 11:51] LABS: Glucose 148 mg/dL (74-106)
[2024-08-04 11:52] LABS: Phosphorus 2.3 mg/dL (2.4-5.1)
[2024-08-04 13:08] LABS: Hepatitis B Surface Antigen Negative (Negative)
[2024-08-04 13:29] LABS: Hepatitis C Antibody Negative (Negative)
[2024-08-04] MEDS: PANTOPRAZOLE 40 MG/10 ML VIAL INJ IV ONE (15:38)
[2024-08-04 16:18] LABS: Chloride 99 mmol/L (98-107); Potassium 3.5 mmol/L (3.5-5.1); Sodium 137 mmol/L (136-145)
[2024-08-04 16:19] LABS: Anion Gap 13 (5-15); Carbon Dioxide 25 mmol/L (20-30)
[2024-08-04 16:20] LABS: Calcium 7.8 mg/dL (8.7-10.4)
[2024-08-04 16:25] LABS: BUN/Creatinine Ratio 12.5 (10.0-20.0); Blood Urea Nitrogen 9 mg/dL (9-23); Glucose 115 mg/dL (74-106)
[2024-08-04] MEDS: InsuLIN REG 1unit/0.01ml Soln (100units/ml) SC SCH (21:13)
[2024-08-04 21:49] LABS: Anion Gap 13 (5-15); Carbon Dioxide 24 mmol/L (20-30); Chloride 98 mmol/L (98-107); Sodium 135 mmol/L (136-145)
[2024-08-04 21:55] LABS: BUN/Creatinine Ratio 11.3 (10.0-20.0); Blood Urea Nitrogen 8 mg/dL (9-23); Glucose 193 mg/dL (74-106)
[2024-08-05] VITALS (19 sets, daily range): BP systolic 95–131; BP diastolic 56–80; PULSE 59–87; RESP 9–18; TEMP 97.9–98.1; O2SAT 94–100
[2024-08-05 05:26] LABS: Basophils # (auto) 0 10 ^3/uL (0-0.2); Basophils % (auto) 0.5 % (0.0-2.0); Eosinophils # (auto) 0.1 10 ^3/uL (0-0.8); Eosinophils % (auto) 2.1 % (0.0-7.0); Hematocrit 40.1 % (41.0-53.0); Hemoglobin 14.2 g/dL (13.5-17.5); Lymphocytes # (auto) 1.3 10 ^3/uL (0.4-5.4); Mean Corpuscular Hemoglobin 33.4 pg (28.0-32.0); Mean Corpuscular Hgb Conc. 35.4 g/dL (32.0-36.0); Mean Corpuscular Volume 94.2 fL (80.0-100.0); Monocytes # (auto) 0.7 10 ^3/uL (0-1.3); Monocytes % (auto) 12.5 % (0.0-12.0); Neutrophils # (auto) 3.1 10 ^3/uL (1.6-8.6); Neutrophils % (auto) 59.9 % (37.0-80.0); Platelet Count (auto) 182 10^3/uL (140-450); Red Blood Cells 4.25 10^6/uL (4.5-5.90); Red Cell Distribution Width 13.5 % (11.8-14.3); White Blood Cell 5.2 10^3/uL (4.4-10.8)
[2024-08-05 06:11] LABS: Alanine Aminotransferase 26 U/L (7-40); Albumin 3.6 g/dL (3.2-4.8); Alkaline Phosphatase 143 U/L (46-116); Anion Gap 8 (5-15); Aspartate Aminotransferase 18 U/L (13-40); BUN/Creatinine Ratio 12.3 (10.0-20.0); Blood Urea Nitrogen 9 mg/dL (9-23); Calcium 8.5 mg/dL (8.7-10.4); Carbon Dioxide 28 mmol/L (20-30); Chloride 101 mmol/L (98-107); Glucose 149 mg/dL (74-106); Potassium 3.2 mmol/L (3.5-5.1); Sodium 137 mmol/L (136-145)
[2024-08-05 06:12] LABS: Bilirubin, Total 0.5 mg/dL (0.2-1.0); Total Protein 5.4 g/dL (5.7-8.2)
[2024-08-05] MEDS: POTASSIUM CHL 20 Meq TABLET PO ONE (06:45)
[2024-08-05] MEDS: PANTOPRAZOLE 40 MG/10 ML VIAL INJ IV SCH (08:13)
[2024-08-05] MEDS ORDERED: INSULIN LANTUS (GLARGINE) 1 /0.01ml (100units/ml) SC SCH (10:00)
[2024-08-05] MEDS: INSULIN LANTUS (GLARGINE) 1 /0.01ml (100units/ml) SC SCH (10:09)
[2024-08-06] VITALS (7 sets, daily range): BP systolic 109–116; BP diastolic 69–80; PULSE 63–77; RESP 14–18; TEMP 97.6–98.2; O2SAT 96–99
[2024-08-07 01:00] VITALS: BP_SYST 113; BP_SYST 114; BP_DIAS 68; BP_DIAS 70; PULSE 62; PULSE 81; RESP 17; TEMP 98.1; TEMP 98.7; O2SAT 95
[2024-08-07 05:00] VITALS: BP 110/66; PULSE 79; RESP 17; TEMP 98.2; O2SAT 98
[2024-08-07 16:38] VITALS: BP 124/80; PULSE 73; RESP 16; TEMP 98.1; O2SAT 99
[2024-08-07 17:34] VITALS: TEMP 36.7
== END 2024-08-07 18:20 | disposition home or self-care (01) | DRG 420 ==
LOC: ER 01:49 → TELE 10:10 → DOU IN ICU 10:20 → TELE-WESTW 08-05 15:33 → WEST WING 08-05 20:05
PROVIDERS: ADMIT Nurse Practitioner Family; ATTEND Internal Medicine
DX: E10.10 Type 1 diabetes mellitus with ketoacidosis without coma (principal); E87.1 Hypo-osmolality and hyponatremia; F10.10 Alcohol abuse, uncomplicated; F15.10 Other stimulant abuse, uncomplicated; F17.210 Nicotine dependence, cigarettes, uncomplicated; Z88.0 Allergy status to penicillin; Z59.00 Homelessness unspecified; Z79.899 Other long term (current) drug therapy; Y90.9 Presence of alcohol in blood, level not specified
CPT/HCPCS: 36415; 36600; 71045; 80048; 80053; 80307; 81001; 82010; 82805; 82962; 83605; 83735; 83930; 84100; 84484; 85025; 86803; 87040; 87081; 87340; 93005; 96361; 96365; 96375; 99291; G0378; J1815; J2405; J2470

== ENCOUNTER 2024-09-15 18:42 | Inpatient (IN) | payer MEDICAID ==
[~2024-09-15] VITALS: Ht 177.8 cm; Wt 71.3 kg
[2024-09-15 19:39] LABS: Base Excess -6.5 mmol/L (-2.0-3.0)
[2024-09-15 19:51] LABS: Basophils # (auto) 0.1 10 ^3/uL (0-0.2); Basophils % (auto) 0.9 % (0.0-2.0); Eosinophils # (auto) 0.1 10 ^3/uL (0-0.8); Eosinophils % (auto) 1.2 % (0.0-7.0); Hematocrit 43.8 % (41.0-53.0); Hemoglobin 14.9 g/dL (13.5-17.5); Lymphocytes # (auto) 1.6 10 ^3/uL (0.4-5.4); Lymphocytes % (auto) 25.1 % (10.0-50.0); Mean Corpuscular Hemoglobin 32.4 pg (28.0-32.0); Mean Corpuscular Hgb Conc. 34.1 g/dL (32.0-36.0); Monocytes % (auto) 16.7 % (0.0-12.0); Neutrophils # (auto) 3.5 10 ^3/uL (1.6-8.6); Neutrophils % (auto) 56.1 % (37.0-80.0); Nucleated Red Blood Cells % 0.1 %; Platelet Count (auto) 220 10^3/uL (140-450); Red Blood Cells 4.61 10^6/uL (4.5-5.90); Red Cell Distribution Width 14.1 % (11.8-14.3); White Blood Cell 6.2 10^3/uL (4.4-10.8)
[2024-09-15 20:09] LABS: Alanine Aminotransferase 56 U/L (7-40); Albumin 4.6 g/dL (3.2-4.8); Alkaline Phosphatase 171 U/L (46-116); Anion Gap 18 (5-15); Aspartate Aminotransferase 34 U/L (13-40); BUN/Creatinine Ratio 15.7 (10.0-20.0); Blood Alcohol < 3.0 mg/dL (<10); Blood Urea Nitrogen 18 mg/dL (9-23); Calcium 9.7 mg/dL (8.7-10.4); Carbon Dioxide 18 mmol/L (20-31); Chloride 90 mmol/L (98-107); Magnesium 1.9 mg/dL (1.6-2.6); Potassium 5.2 mmol/L (3.5-5.1); Sodium 126 mmol/L (136-145)
[2024-09-15 20:10] LABS: Bilirubin, Total 0.7 mg/dL (0.2-1.0)
[2024-09-15 20:33] LABS: Glucose 522 mg/dL (74-106)
[2024-09-15 20:36] LABS: Lipase 36 U/L (12-53)
[2024-09-15] MEDS ORDERED: DEXTROSE (50%) 50ML SYRG IV PRN (20:45)
[2024-09-15] MEDS: SODIUM CHLORIDE 0.9% 1,000 ML IV ONE (21:48)
[2024-09-15] MEDS: ACCU-CHEK COMFORT CURVE STRIP VI SCH (21:53)
[2024-09-15] MEDS: InsuLIN REG 1unit/0.01ml Soln (100units/ml) IV ONE (21:54)
[2024-09-15] MEDS: ONDANSETRON HCL 4 MG/2 ML VIAL IV ONE (21:55)
[2024-09-15] MEDS: INSULIN DRIP 100 UNIT/100ML 100 ML IV SCH (22:43)
[2024-09-15] MEDS ORDERED: ACETAMINOPHEN 325 MG TAB PO PRN (22:45)
[2024-09-15] MEDS ORDERED: MORPHINE SULFATE INJ 2 MG/ml SYRG IV PRN (22:45)
[2024-09-15] MEDS ORDERED: DOCUSATE SOD 100 MG CAP PO PRN (22:45)
[2024-09-15] MEDS ORDERED: HYDROcodone-ACET 5/325MG TAB PO PRN (22:45)
[2024-09-15] MEDS ORDERED: ONDANSETRON HCL 4 MG/2 ML VIAL IV PRN (22:45)
[2024-09-15] MEDS ORDERED: NITROGLYCERIN 0.4 MG SL TAB SL PRN (22:45)
[2024-09-15 22:46] VITALS: PULSE 73; RESP 16; O2SAT 100
[2024-09-16] MEDS: SODIUM CHLORIDE 0.9% 1,000 ML IV SCH (02:40)
[2024-09-16 02:42] LABS: Chloride 104 mmol/L (98-107); Potassium 3.6 mmol/L (3.5-5.1)
[2024-09-16 02:43] LABS: Anion Gap 6 (5-15); Calcium 8.4 mg/dL (8.7-10.4); Carbon Dioxide 22 mmol/L (20-31); Sodium 132 mmol/L (136-145)
[2024-09-16 02:48] LABS: BUN/Creatinine Ratio 14.9 (10.0-20.0); Blood Urea Nitrogen 11 mg/dL (9-23)
[2024-09-16 02:52] LABS: Glucose 153 mg/dL (74-106)
[2024-09-16] MEDS ORDERED: DEXTROSE (50%) 50ML SYRG IV PRN (03:30)
[2024-09-16] MEDS: InsuLIN REG 1unit/0.01ml Soln (100units/ml) SC SCH (03:50)
[2024-09-16] MEDS: ACCU-CHEK COMFORT CURVE STRIP VI SCH (03:50)
[2024-09-16 04:36] LABS: Hematocrit 39.3 % (41.0-53.0); Hemoglobin 14.1 g/dL (13.5-17.5); Mean Corpuscular Hgb Conc. 35.9 g/dL (32.0-36.0); Mean Corpuscular Volume 92.1 fL (80.0-100.0); Platelet Count (auto) 201 10^3/uL (140-450); Red Blood Cells 4.27 10^6/uL (4.5-5.90); Red Cell Distribution Width 13.8 % (11.8-14.3); White Blood Cell 5.7 10^3/uL (4.4-10.8)
[2024-09-16 04:44] LABS: Alanine Aminotransferase 41 U/L (7-40); Albumin 3.9 g/dL (3.2-4.8); Alkaline Phosphatase 135 U/L (46-116); Anion Gap 7 (5-15); BUN/Creatinine Ratio 17.4 (10.0-20.0); Blood Urea Nitrogen 12 mg/dL (9-23); Calcium 8.7 mg/dL (8.7-10.4); Carbon Dioxide 24 mmol/L (20-31); Chloride 103 mmol/L (98-107); Glucose 82 mg/dL (74-106); Potassium 3.8 mmol/L (3.5-5.1); Sodium 134 mmol/L (136-145)
[2024-09-16 04:45] LABS: Aspartate Aminotransferase 20 U/L (13-40); Basophils % (manual) 0 (0.0-2.0); Bilirubin, Total 0.5 mg/dL (0.2-1.0); Blast Cells 0; Eosinophils % (manual) 0 (0-7); Metamyelocytes % 0; Myelocytes % 0; Promyelocytes % 0; Reactive Lymphocytes 0
[2024-09-16 06:19] LABS: Band Neutrophils % (manual) 2; Lymphocytes % (manual) 23 (10.0-50.0); Monocytes % (manual) 19 (0-12); Platelet Estimate Adequate; Smudge Cells 2 /100 WBC
[2024-09-16 07:30] VITALS: O2SAT 98
[2024-09-16 08:54] LABS: Chloride 99 mmol/L (98-107); Potassium 4.8 mmol/L (3.5-5.1); Sodium 132 mmol/L (136-145)
[2024-09-16 08:55] LABS: Anion Gap 13 (5-15); Carbon Dioxide 20 mmol/L (20-31)
[2024-09-16 08:56] LABS: Calcium 8.5 mg/dL (8.7-10.4)
[2024-09-16 09:01] LABS: BUN/Creatinine Ratio 14.4 (10.0-20.0); Blood Urea Nitrogen 13 mg/dL (9-23)
[2024-09-16 09:04] LABS: Glucose 315 mg/dL (74-106)
[2024-09-16 09:18] LABS: Urine Bacteria None Seen /hpf (None Seen); Urine WBC None Seen /hpf (0 - 3)
[2024-09-16] MEDS: FAMOTIDINE (10MG/ML) 2ML VL IV SCH (09:27)
[2024-09-16 13:13] LABS: Urine Blood Negative /uL (Negative); Urine Clarity Clear (Clear); Urine Color Light-Yellow (Yellow); Urine Protein, UAD Negative (Negative); Urine Specific Gravity 1.026 (1.001-1.035); Urine Urobilinogen Normal (Negative); Urine pH 5.5 (5.0-9.0)
[2024-09-16 15:46] LABS: Chloride 102 mmol/L (98-107); Potassium 4.7 mmol/L (3.5-5.1); Sodium 132 mmol/L (136-145)
[2024-09-16 15:47] LABS: Anion Gap 3 (5-15); Calcium 8.9 mg/dL (8.7-10.4); Carbon Dioxide 27 mmol/L (20-31)
[2024-09-16 15:52] LABS: BUN/Creatinine Ratio 12.7 (10.0-20.0); Blood Urea Nitrogen 13 mg/dL (9-23)
[2024-09-16 16:06] LABS: Glucose 436 mg/dL (74-106)
[2024-09-16 20:29] VITALS: PULSE 82; RESP 16; O2SAT 98
[2024-09-16 22:58] VITALS: PULSE 78; RESP 18; O2SAT 98
[2024-09-16 23:17] VITALS: PULSE 74
[2024-09-16 23:48] VITALS: BP 118/68; PULSE 78; RESP 18; TEMP 98.2; O2SAT 98
[2024-09-17] VITALS (8 sets, daily range): BP systolic 104–127; BP diastolic 56–78; PULSE 62–108; RESP 16–20; TEMP 97.4–98.2; O2SAT 94–100
[2024-09-17] MEDS ORDERED: ACCU-CHEK COMFORT CURVE STRIP VI SCH ×2 (16:30→17:00)
[2024-09-17] MEDS ORDERED: DEXTROSE (50%) 50ML SYRG IV PRN (16:30)
[2024-09-17] MEDS: ACCU-CHEK COMFORT CURVE STRIP VI SCH (16:44)
[2024-09-17] MEDS: InsuLIN REG 1unit/0.01ml Soln (100units/ml) SC SCH ×2 (16:45→22:31)
[2024-09-17] MEDS: InsuLIN REG 1unit/0.01ml Soln (100units/ml) SC ONE (19:21)
[2024-09-17] MEDS: INSULIN LANTUS (GLARGINE) 1 /0.01ml (100units/ml) SC SCH (22:33)
[2024-09-18] VITALS (7 sets, daily range): BP systolic 107–119; BP diastolic 66–85; PULSE 65–116; RESP 17–20; TEMP 97.6–98.6; O2SAT 96–99
[2024-09-18] MEDS ORDERED: ACCU-CHEK COMFORT CURVE STRIP VI SCH (04:00)
[2024-09-18] MEDS: ACCU-CHEK COMFORT CURVE STRIP VI SCH (06:49)
[2024-09-18] MEDS: INSULIN LANTUS (GLARGINE) 1 /0.01ml (100units/ml) SC SCH (14:51)
[2024-09-18] MEDS: MELATONIN 5 MG TAB PO ONE (21:48)
[2024-09-19 05:00] VITALS: BP 105/62; PULSE 66; RESP 17; TEMP 98.1; O2SAT 98
[2024-09-19 08:00] VITALS: PULSE 64
[2024-09-19 09:00] VITALS: BP 106/57; PULSE 80; RESP 18; TEMP 98; O2SAT 100
[2024-09-19] MEDS ORDERED: INSREGI SC (12:59)
[2024-09-19] MEDS ORDERED: INSUINJ37 SC (12:59)
[2024-09-19 13:00] VITALS: BP 117/70; PULSE 75; RESP 18; TEMP 98.3; O2SAT 97
== END 2024-09-19 18:23 | disposition home or self-care (01) | DRG 420 ==
LOC: ER 18:42 → TELE 22:42 → TELE-WESTW 09-16 22:58
PROVIDERS: ADMIT Nurse Practitioner Family; ATTEND Student in an Organized Health Care Education/Training Program
DX: E10.10 Type 1 diabetes mellitus with ketoacidosis without coma (principal); F10.10 Alcohol abuse, uncomplicated; F17.210 Nicotine dependence, cigarettes, uncomplicated; Z79.4 Long term (current) use of insulin; Z59.00 Homelessness unspecified; Z91.199 Patient's noncompliance with other medical treatment and regimen due to unspecified reason; Z79.899 Other long term (current) drug therapy; Z88.0 Allergy status to penicillin; Y90.0 Blood alcohol level of less than 20 mg/100 ml
CPT/HCPCS: 36415; 36600; 74176; 80048; 80053; 80320; 81001; 82010; 82805; 82962; 83605; 83690; 83735; 83930; 84100; 84484; 85007; 85025; 85027; G0378; J1815; J2405; J3490

== ENCOUNTER 2024-10-08 23:13 | Inpatient (IN) | payer MEDICAID ==
[~2024-10-08] VITALS: Ht 177.8 cm; Wt 58.4 kg
--- NOTE | 2024-10-08 23:30 | ED.PDOC ---
History of present illness HPI Comments 29-year-old male who came to ER due to hypoglycemia. Patient is homeless, does have history of methamphetamine abuse, daily beer drinker, type 1 diabetes, and has poor compliance with his insulin. Patient admitted multiple times here for diabetic keto acidosis. States that he feels like his blood sugar levels are flaring up again, has been feeling extremely thirsty with increase urine output. Has been having abdominal pain, chest pain, shortness of breath, nausea, and vomiting as well. Upon arrival blood sugar read high Chief Complaint: Hyperglycemia Time Seen by MD: 23:29 Primary Care Provider: NONE History of present illness: Nurses Notes Allergies: Coded Allergies: Penicillin G (Verified Allergy, Unknown, 07/01/22) Penicillins (Unverified Allergy, Unknown, 07/01/22) Piperacillin (Verified Allergy, Unknown, 10/23/23) Tazobactam (Verified Allergy, Unknown, 10/23/23) Home Meds Active Scripts Insulin Glargine (Lantus Solostar) 100 Unit/Ml Inj, 30 UNITS SC BID for 30 Days, #1 INJ 5 Refills Prov:YISSEL MANUEL MD 09/19/24 Insulin Regular (Human) (Novolin R) 100 Unit/Ml Inj, 10 UNITS SC ACHS for 30 Days, #3 UNITS 5 Refills Prov:YISSEL MANUEL MD 09/19/24 Insulin Syringes (Disposable) (Bd Insulin Syringe Luer-L) 1 Ml Mis, ML XX 6XD, #120 3 Refills Prov:LALITA WATKINS NP 08/25/24 Insulin Syringe/Needle U-100 (ADVOCATE INSULIN SYRINGE/) 0.5 Mg/31 G Mis, APPLIC XX, #100 Use as directed Prov:CLAUDIA BOOKER RESIDENT 07/11/24 Insulin Syringe/Needle U-100 (ADVOCATE INSULIN SYRINGE/) 1 Ml/31 G Mis, ML XX TID PRN, #100 3 Refills use for insulin administration Prov:CHI MARQUEZ RESIDENT 04/12/24 Blood Glucose Monitoring Suppl (D-Care Glucometer Kit/Glu W/Device) 1 Kit Kit, KIT SC 5XD PRN, #1 1 Refill please check serum glucose before each meal. Prov:CHI MARQUEZ RESIDENT 04/12/24 Information Source: Patient Mode of Arrival: Ambulatory Timing: Hours Duration: Since onset Prehospital treatment: None [place]: Shaky, Sweaty Symptoms: Anxious, Shaky, Sweaty History of: Diabetes, Insulin use Associated signs and symptoms: Chest Pain, Abdominal Pain, Nausea, Vomiting Past Medical History PAST MEDICAL HISTORY: Anxiety, Depression, DM, CT Past Medical History (Other): Diabetic ketoacidosis Family History Family History: Reviewed,noncontributory to illness, Family hx of DM Social History Smoker: Cigarettes Alcohol: Heavy Drugs: Methamphetamine Lives In: Homeless Constitutional: denies: chills, diaphoresis, fatigue, fever, malaise, sweats, weakness, others EENTM: denies: blurred vision, double vision, ear bleeding, ear discharge, ear drainage, ear pain, ear ringing, eye pain, eye redness, hearing loss, mouth pain, mouth swelling, nasal discharge, nose bleeding, nose congestion, nose pain, photophobia, tearing, throat pain, throat swelling, voice changes, others Respiratory: reports: SOB at rest, shortness of breath; denies: cough, hemoptysis, orthopnea, SOB with excertion, stridor, wheezing, others Cardiovascular: reports: chest pain; denies: dizzy spells, diaphoresis, Dyspnea on exertion, edema, irregular heart beat, left arm pain, lightheadedness, palpitations, PND, syncope, others Gastrointestinal: reports: abdominal pain, nausea, vomiting; denies: abdomen distended, blood streaked bowels, constipated, diarrhea, dysphagia, difficulty swallowing, hematemesis, melena, poor appetite, poor fluid intake, rectal bleeding, rectal pain, others Genitourinary: denies: burning, dysuria, flank pain, frequency, hematuria, incontinence, penile discharge, penile sore, pain, testicle pain, testicle swelling, urgency, others Neurological: denies: dizziness, fainting, headache, left sided numbness, left sided weakness, numbness, paresthesia, pre-existing deficit, right sided numbness, right sided weakness, seizure, speech problems, tingling, tremors, weakness, others Musculoskeletal: denies: back pain, gout, joint pain, joint swelling, muscle pain, muscle stiffness, neck pain, others Integumetry: denies: bruises, change in color, change in hair/nails, dryness, laceration, lesions, lumps, rash, wounds, others Allergic/Immunocompromised: denies: Difficulty Healing, Frequent Infections, Hives, Itching, others Hematologic/Lymphatic: denies: anemia, blood clots, easy bleeding, easy bruising, swollen glands, others Endocrine: reports: excessive thirst, excessive urination; denies: excessive hunger, excessive sweating, flushing, intolerance to cold, intolerance to heat, unexplained weight gain, unexplained weight loss, others Psychiatric: denies: anxiety, bipolar disorder, depression, hopeless, panic disorder, schizophrenia, sleepless, suicidal, others Physical Exam General Appearance: No Apparent Distress, Normal HEENT: Normal ENT Inspection, Pharynx Normal, TMs Normal Neck: Full Range of Motion, Non-Tender, Normal, Normal Inspection Respiratory: Chest Non-Tender, Lungs Clear, No Accessory Muscle Use, No Respiratory Distress, Normal Breath Sounds Cardiovascular: No Edema, No JVD, No Murmur, No Gallop, Normal Peripheral Pulses, Regular Rate/Rhythm Breast Exam: Deferred Gastrointestinal: No Organomegaly, Non Tender, No Pulsatile Mass, Normal Bowel Sounds, Soft Genitalia: Deferred Pelvic: Deferred Rectal: Deferred Extremities: No calf tenderness, Normal capillary refill, Normal inspection, Normal range of motion, Non-tender, No pedal edema Musculoskeletal : Apperance: Normal Neurologic: Alert, co founder and cto II-XII nml as 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 Was a procedure done?: No Differential Diagnosis (DM) Differential Diagnosis: Dehydration, DKA, Electrolyte Abnormality, Gastritis, Gastroenteritis X-Ray, Labs, Meds, VS Vital Signs Date Time Temp Pulse Resp B/P (MAP) Pulse Ox O2 Delivery O2 Flow Rate FiO2 10/08/24 23:22 98.0 94 24 117/87 (97) 96 Lab Test 10/09/24 00:23 10/09/24 00:21 10/09/24 00:17 10/09/24 00:13 Range/Units POC Glucose > 600 *H > 600 *H 70-106 mg/dl White Blood Count 3.5 L 4.4-10.8 10^3/uL Red Blood Count 5.07 4.5-5.90 10^6/uL Hemoglobin 16.2 13.5-17.5 g/dL Hematocrit 48.2 41.0-53.0 % Mean Corpuscular Volume 95.1 80.0-100.0 fL Mean Corpuscular Hemoglobin 31.9 28.0-32.0 pg Mean Corpuscular Hemoglobin Concent 33.6 32.0-36.0 g/dL Red Cell Distribution Width 14.4 H 11.8-14.3 % Platelet Count 231 140-450 10^3/uL Mean Platelet Volume 8.1 6.9-10.8 fL Neutrophils (%) (Auto) 41.3 37.0-80.0 % Lymphocytes (%) (Auto) 40.8 10.0-50.0 % Monocytes (%) (Auto) 13.5 H 0.0-12.0 % Eosinophils (%) (Auto) 2.8 0.0-7.0 % Basophils (%) (Auto) 1.6 0.0-2.0 % Neutrophils # (Auto) 1.4 L 1.6-8.6 10 ^3/uL Lymphocytes # (Auto) 1.4 0.4-5.4 10 ^3/uL Monocytes # (Auto) 0.5 0-1.3 10 ^3/uL Eosinophils # (Auto) 0.1 0-0.8 10 ^3/uL Basophils # (Auto) 0.1 0-0.2 10 ^3/uL Nucleated Red Blood Cells 0.0 % Sodium Level 140 136-145 mmol/L Potassium Level 4.4 3.5-5.1 mmol/L Chloride Level 103 98-107 mmol/L Carbon Dioxide Level 24 20-31 mmol/L Anion Gap 13 5-15 Blood Urea Nitrogen 11 9-23 mg/dL Creatinine 1.10 0.700-1.30 mg/dL Glomerular Filtration Rate Calc 93 >90 mL/min BUN/Creatinine Ratio 10.0 10.0-20.0 Serum Glucose 652 *H 74-106 mg/dL Calcium Level 9.8 8.7-10.4 mg/dL Phosphorus Level 5.2 H 2.4-5.1 mg/dL Magnesium Level 2.4 1.6-2.6 mg/dL Beta-Hydroxybutyric Acid 0.679 H < 0.4 mmol/L Blood Gas Specimen Type Arterial Blood Gas Sample Site Left radial Blood Gas Patient Temperature 37.0 Arterial Blood Date Drawn [id number] Arterial Blood pH 7.351 7.350-7.450 Arterial Blood Partial Pressure CO2 41.4 35.0-48.0 mmHg Arterial Blood Partial Pressure O2 80.3 L 83.0-108.0 mmHg Arterial Blood HCO3 22.4 21.0-28.0 mmol/L Arterial Blood Oxygen Saturation 94.2 94.0-98.0 % Arterial Blood Base Excess -3.0 L -2.0-3.0 mmol/L Arterial Blood Oxyhemoglobin 92.3 L 94.0-98.0 % Arterial Blood Carboxyhemoglobin 1.6 H 0.5-1.5 % Arterial Blood Methemoglobin 0.4 0.0-1.5 % Arden Test Yes Blood Gas Total Hemoglobin 16.40 13.5-17.5 g/dL Blood Gas Modality Room air FiO2 % 21.0 Test 10/08/24 23:43 10/08/24 23:20 Range/Units Urine Color Colorless Yellow Urine Clarity Clear Clear Urine pH 5.5 5.0-9.0 Urine Specific [place] 1.032 1.001-1.035 Urine Protein Negative Negative Urine Ketones Negative Negative Urine Blood Negative Negative /uL Urine Nitrite Negative Negative Urine Bilirubin Negative Negative Urine Urobilinogen Normal Negative mg/dL Urine Leukocyte Esterase Negative Negative /uL Urine RBC <1 0 - 3 /hpf Urine WBC None seen 0 - 3 /hpf Urine Squamous Epithelial Cells None seen <5 /hpf Urine Bacteria None seen None Seen /hpf Urine Glucose 4+ H Normal mg/dL POC Glucose > 600 *H 70-106 mg/dl Current Medications Medications (Trade) Dose Ordered Sig/Toño Route Start Time Stop Time Status Last Admin Sodium Chloride 1,000 ml @ 1,000 mls/hr Q1H ONCE IV 10/08/24 23:45 10/09/24 00:44 DC 10/09/24 00:28 Ondansetron HCl (Zofran) 4 mg ONCE ONCE IV 10/08/24 23:45 10/08/24 23:47 DC 10/09/24 00:31 Time of 1ST Reevaluation: 23:26 Reevaluation 1ST: Unchanged Patient Education/Counseling: Diagnosis, Treatment Family Education/Counseling: No Family Present Departure 1 Departure Time of Disposition: 01:36 (Patient with uncontrolled diabetes. We will admit patient for further workup) Impression: Primary Impression: Uncontrolled diabetes mellitus Qualified Codes: E11.65 - Type 2 diabetes mellitus with hyperglycemia Disposition: 09 ADMITTED INPATIENT Admit to: Med Surg Condition: Serious Critical Care Note Critical Care Time?: Yes (35 min-critical care time only) Critical care comment: Hyperglycemia Authorized and Performed by: Dhaval Lacy MD Total critical care time: Approximately 38 minutes Due to a high probability of clinically significant, life threatening deterioration, the patient required my highest level of preparedness to intervene emergently and I personally spent this critical care time directly and personally managing the patient. This critical care time included obtaining a history; examining the patient; pulse oximetry; ordering and review of studies; arranging urgent treatment with development of a management plan; evaluation of patient's response to treatment; frequent reassessment; and, discussions with other providers. This critical care time was performed to assess and manage the high probability of imminent, life-threatening deterioration that could result in multi-organ failure. It was exclusive of separately billable procedures and treating other patients and teaching time. Please see my other sections and the rest of the note for further information on patient assessment and treatment. Stability Stability form required: No Heart Score Heart Score: Heart Score Response (Comments) Value History N/A 0 EKG N/A 0 Age N/A 0 Risk Factors N/A 0 Troponin N/A 0 Total 0 I personally scribed for DHAVAL LACY MD ([email or web address]) on 10/08/24 at 23:30. Electronically submitted by Rell Cotton ([email or web address]). DHAVAL LACY MD Oct 08, 2024 23:30
[2024-10-09] VITALS (9 sets, daily range): BP systolic 115–126; BP diastolic 69–78; PULSE 71–99; RESP 13–18; TEMP 97–98.2; O2SAT 96–100
[2024-10-09] MEDS: SODIUM CHLORIDE 0.9% 1,000 ML IV ONE (00:28)
[2024-10-09 00:29] LABS: Basophils # (auto) 0.1 10 ^3/uL (0-0.2); Basophils % (auto) 1.6 % (0.0-2.0); Eosinophils # (auto) 0.1 10 ^3/uL (0-0.8); Eosinophils % (auto) 2.8 % (0.0-7.0); Hematocrit 48.2 % (41.0-53.0); Hemoglobin 16.2 g/dL (13.5-17.5); Lymphocytes # (auto) 1.4 10 ^3/uL (0.4-5.4); Lymphocytes % (auto) 40.8 % (10.0-50.0); Mean Corpuscular Hemoglobin 31.9 pg (28.0-32.0); Mean Corpuscular Hgb Conc. 33.6 g/dL (32.0-36.0); Mean Corpuscular Volume 95.1 fL (80.0-100.0); Monocytes # (auto) 0.5 10 ^3/uL (0-1.3); Monocytes % (auto) 13.5 % (0.0-12.0); Neutrophils # (auto) 1.4 10 ^3/uL (1.6-8.6); Neutrophils % (auto) 41.3 % (37.0-80.0); Platelet Count (auto) 231 10^3/uL (140-450); Red Blood Cells 5.07 10^6/uL (4.5-5.90); Red Cell Distribution Width 14.4 % (11.8-14.3); White Blood Cell 3.5 10^3/uL (4.4-10.8)
[2024-10-09] MEDS: ONDANSETRON HCL 4 MG/2 ML VIAL IV ONE (00:31)
[2024-10-09 00:46] LABS: Chloride 103 mmol/L (98-107); Potassium 4.4 mmol/L (3.5-5.1); Sodium 140 mmol/L (136-145)
[2024-10-09 00:47] LABS: Anion Gap 13 (5-15); Calcium 9.8 mg/dL (8.7-10.4); Carbon Dioxide 24 mmol/L (20-31)
[2024-10-09 00:52] LABS: Blood Urea Nitrogen 11 mg/dL (9-23)
[2024-10-09 00:53] LABS: Magnesium 2.4 mg/dL (1.6-2.6)
[2024-10-09 00:54] LABS: Phosphorus 5.2 mg/dL (2.4-5.1)
[2024-10-09 00:55] LABS: Glucose 652 mg/dL (74-106)
[2024-10-09 01:01] LABS: Urine Bacteria None Seen /hpf (None Seen); Urine WBC None Seen /hpf (0 - 3)
[2024-10-09 01:07] LABS: Urine Blood Negative /uL (Negative); Urine Clarity Clear (Clear); Urine Color Colorless (Yellow); Urine Protein, UAD Negative (Negative); Urine Specific Gravity 1.032 (1.001-1.035); Urine Urobilinogen Normal (Negative); Urine pH 5.5 (5.0-9.0)
[2024-10-09] MEDS: InsuLIN REG 1unit/0.01ml Soln (100units/ml) IV ONE (02:00)
[2024-10-09] MEDS ORDERED: DEXTROSE (50%) 50ML SYRG IV PRN ×2 (03:00→17:45)
[2024-10-09] MEDS ORDERED: LORazepam 0.5 MG TAB PO PRN (03:00)
[2024-10-09] MEDS ORDERED: ONDANSETRON HCL 4 MG/2 ML VIAL IV PRN (03:00)
[2024-10-09] MEDS ORDERED: MAALOX PLUS or MAALOX 30 ML PO PRN (03:00)
[2024-10-09] MEDS ORDERED: MORPHINE SULFATE INJ 2 MG/ml SYRG IV PRN (03:00)
[2024-10-09] MEDS ORDERED: ACETAMINOPHEN 325 MG TAB PO PRN (03:00)
[2024-10-09] MEDS ORDERED: TEMAZEPAM 15 MG CAP PO PRN (03:00)
[2024-10-09] MEDS ORDERED: HYDROcodone-ACET 5/325MG TAB PO PRN (03:00)
[2024-10-09] MEDS ORDERED: DOCUSATE SOD 100 MG CAP PO PRN (03:00)
--- NOTE | 2024-10-09 03:07 | DVHHP2 ---
History of Present Illness Reason for Visit: hyperglycemia History of Present Illness 29 yo noncompliant patient here often for DKA and failed diabetic management patient constantly having episodes of dka managed in the ed often Endocrine: Diabetes Review of Systems Constitutional: Yes: Weakness; No: Fever, Chills, Sweats, Malaise, Other Eyes: No: Pain, Vision change, Conjunctivae inflammation, Eyelid inflammation, Other, Redness ENT: No: Ear pain, Ear discharge, Nose pain, Nose discharge, Nose congestion, Mouth pain, Mouth swelling, Throat pain, Throat swelling, Other Respiratory: No: Cough, Dry, Shortness of breath, SOB with excertion, Wheezing, Hemoptysis, Pleuritic Pain, Sputum, Wheezing, Other Cardiovascular: No: Chest Pain, Palpitations, Orthopnea, Paroxysmal Noc. Dyspnea, Edema, Lt Headedness, Other Gastrointestinal: No: Nausea, Vomiting, Abdominal Pain, Diarrhea, Constipation, Melena, Hematochezia, Other Genitourinary: No Dysuria, No Frequency, No Incontinence, No Hematuria, No Retention, No Other Musculoskeletal: No: other, neck pain, shoulder pain, arm pain, back pain, hand pain, leg pain, foot pain Skin: No: Rash, Lesions, Jaundice, Bruising, Other Neurological: No: Weakness, Numbness, Incoordination, Change in speech, Confusion, Seizures, Other Allergies: Coded Allergies: Penicillin G (Verified Allergy, Unknown, 07/01/22) Penicillins (Unverified Allergy, Unknown, 07/01/22) Piperacillin (Verified Allergy, Unknown, 10/23/23) Tazobactam (Verified Allergy, Unknown, 10/23/23) Exam Vital Signs Vital Signs Date Time Temp Pulse Resp B/P (MAP) Pulse Ox O2 Delivery O2 Flow Rate FiO2 10/09/24 01:40 96 13 96 Room Air* 0 21 10/08/24 23:40 98.0 122/76 (91) 98.0 General Appearance: Alert, Oriented X3 HEENT: Atraumatic, PERRLA Respiratory: Clear to auscultation Cardiovascular: Regular rate, Normal S1, Normal S2 Abdominal: Normal bowel sounds, Soft Extremities: No clubbing, No cyanosis Skin: No rashes, No breakdown Neuro: Normal gait, Normal speech Psych/Mental Status: Mood NL Labs/Xrays Labs Test 10/09/24 00:23 10/09/24 00:17 10/09/24 00:13 10/08/24 23:43 Range/Units POC Glucose > 600 *H 70-106 mg/dl White Blood Count 3.5 L 4.4-10.8 10^3/uL Red Blood Count 5.07 4.5-5.90 10^6/uL Hemoglobin 16.2 13.5-17.5 g/dL Hematocrit 48.2 41.0-53.0 % Mean Corpuscular Volume 95.1 80.0-100.0 fL Mean Corpuscular Hemoglobin 31.9 28.0-32.0 pg Mean Corpuscular Hemoglobin Concent 33.6 32.0-36.0 g/dL Red Cell Distribution Width 14.4 H 11.8-14.3 % Platelet Count 231 140-450 10^3/uL Mean Platelet Volume 8.1 6.9-10.8 fL Neutrophils (%) (Auto) 41.3 37.0-80.0 % Lymphocytes (%) (Auto) 40.8 10.0-50.0 % Monocytes (%) (Auto) 13.5 H 0.0-12.0 % Eosinophils (%) (Auto) 2.8 0.0-7.0 % Basophils (%) (Auto) 1.6 0.0-2.0 % Neutrophils # (Auto) 1.4 L 1.6-8.6 10 ^3/uL Lymphocytes # (Auto) 1.4 0.4-5.4 10 ^3/uL Monocytes # (Auto) 0.5 0-1.3 10 ^3/uL Eosinophils # (Auto) 0.1 0-0.8 10 ^3/uL Basophils # (Auto) 0.1 0-0.2 10 ^3/uL Nucleated Red Blood Cells 0.0 % Sodium Level 140 136-145 mmol/L Potassium Level 4.4 3.5-5.1 mmol/L Chloride Level 103 98-107 mmol/L Carbon Dioxide Level 24 20-31 mmol/L Anion Gap 13 5-15 Blood Urea Nitrogen 11 9-23 mg/dL Creatinine 1.10 0.700-1.30 mg/dL Glomerular Filtration Rate Calc 93 >90 mL/min BUN/Creatinine Ratio 10.0 10.0-20.0 Serum Glucose 652 *H 74-106 mg/dL Calcium Level 9.8 8.7-10.4 mg/dL Phosphorus Level 5.2 H 2.4-5.1 mg/dL Magnesium Level 2.4 1.6-2.6 mg/dL Beta-Hydroxybutyric Acid 0.679 H < 0.4 mmol/L Blood Gas Specimen Type Arterial Blood Gas Sample Site Left radial Blood Gas Patient Temperature 37.0 Arterial Blood Date Drawn [id number] Arterial Blood pH 7.351 7.350-7.450 Arterial Blood Partial Pressure CO2 41.4 35.0-48.0 mmHg Arterial Blood Partial Pressure O2 80.3 L 83.0-108.0 mmHg Arterial Blood HCO3 22.4 21.0-28.0 mmol/L Arterial Blood Oxygen Saturation 94.2 94.0-98.0 % Arterial Blood Base Excess -3.0 L -2.0-3.0 mmol/L Arterial Blood Oxyhemoglobin 92.3 L 94.0-98.0 % Arterial Blood Carboxyhemoglobin 1.6 H 0.5-1.5 % Arterial Blood Methemoglobin 0.4 0.0-1.5 % Arden Test Yes Blood Gas Total Hemoglobin 16.40 13.5-17.5 g/dL Blood Gas Modality Room air FiO2 % 21.0 Urine Color Colorless Yellow Urine Clarity Clear Clear Urine pH 5.5 5.0-9.0 Urine Specific [place] 1.032 1.001-1.035 Urine Protein Negative Negative Urine Ketones Negative Negative Urine Blood Negative Negative /uL Urine Nitrite Negative Negative Urine Bilirubin Negative Negative Urine Urobilinogen Normal Negative mg/dL Urine Leukocyte Esterase Negative Negative /uL Urine RBC <1 0 - 3 /hpf Urine WBC None seen 0 - 3 /hpf Urine Squamous Epithelial Cells None seen <5 /hpf Urine Bacteria None seen None Seen /hpf Urine Glucose 4+ H Normal mg/dL Assessment/Plan Assessment/Plan Admit Med/Surge DKA Frequent visits noncompliance substance abuse IV hydration aggressive sliding scale TID insulin BID long acting sliding scale on top to gain control high probability ama Plan discussed with: Patient My Orders Orders - MOLLY ARVIZU MD Procedure Category Date Status Time Glucose Blood PHA 10/09/24 Verified (Accu-Chek Comfort 04:00 Agressive Insulin Ss PHA 10/09/24 Verified 04:00 Dextrose 50% Syringe PHA 10/09/24 Verified 03:00 Insulin R (Human) [facility] 10/09/24 Verified (Insulin R) 07:00 (Nf) Insulin Glargine PHA 10/09/24 Verified (Lantus Solostar) 10:00 NS [facility] 10/09/24 Verified 03:00 Admit ADMIT 10/09/24 Verified 02:54 Code Status CODE 10/09/24 Verified 02:54 Vital Signs [facility] 10/09/24 Verified 02:54 Review Orders With [facility] 10/09/24 Verified Adm. 02:54 Regular Diet DIET 10/09/24 Verified Breakfast Lorazepam Tablet [facility] 10/09/24 Verified (Ativan Tablet) 03:00 Alum & Mag [facility] 10/09/24 Verified Hydrox-Simethicone 03:00 Docusate Sodium [facility] 10/09/24 Verified Capsule (Colace 03:00 Acetaminophen Tablet [facility] 10/09/24 Verified (Tylenol Tablet) 03:00 Temazepam (Restoril) [facility] 10/09/24 Verified 03:00 Notify Md Of Changes [facility] 10/09/24 Verified From Base 02:54 Advance Directive [facility] 10/09/24 Verified 02:54 Basic Metabolic Panel LAB 10/09/24 Verified 04:00 Complete Blood Count LAB 10/09/24 Verified 04:00 Patient Condition ORDERS 10/09/24 Verified 02:54 Allergies [facility] 10/09/24 Verified 02:54 Hydrocodone-Acet [facility] 10/09/24 Verified 5/325mg Tab ([place] 03:00 Ondansetron Hcl [facility] 10/09/24 Verified (Zofran) 03:00 Morphine 2mg Iv Q4hprn [facility] 10/09/24 Verified 03:00 Notify Md Of Changes [facility] 10/09/24 Verified From Base 02:54 Oxygen By Nasal RT 10/09/24 Verified Cannula 02:54 Teenage Babysitter For [facility] 10/09/24 Verified 24 Hours 02:54 Problem List: (1) History of diabetes mellitus, type I (2) Diabetes (3) DKA, type 1 Date of Service: Oct 09, 2024 Billing Provider: MOLLY ARVIZU MD Common Visit Codes: [id number] INP/OBS CARE (HIGH) MOLLY ARVIZU MD Oct 09, 2024 03:07
[2024-10-09] MEDS: SODIUM CHLORIDE 0.9% 1,000 ML IV SCH (03:18)
[2024-10-09] MEDS: ACCU-CHEK COMFORT CURVE STRIP VI SCH ×2 (04:00→22:10)
[2024-10-09] MEDS: InsuLIN REG 1unit/0.01ml Soln (100units/ml) SC SCH ×3 (04:04→22:10)
[2024-10-09 04:24] LABS: Basophils # (auto) 0.1 10 ^3/uL (0-0.2); Eosinophils # (auto) 0.1 10 ^3/uL (0-0.8); Eosinophils % (auto) 2.9 % (0.0-7.0); Hematocrit 44.9 % (41.0-53.0); Hemoglobin 15.5 g/dL (13.5-17.5); Lymphocytes # (auto) 1.3 10 ^3/uL (0.4-5.4); Lymphocytes % (auto) 40.9 % (10.0-50.0); Mean Corpuscular Hemoglobin 32.2 pg (28.0-32.0); Mean Corpuscular Hgb Conc. 34.5 g/dL (32.0-36.0); Mean Corpuscular Volume 93.1 fL (80.0-100.0); Monocytes # (auto) 0.5 10 ^3/uL (0-1.3); Monocytes % (auto) 16.5 % (0.0-12.0); Neutrophils # (auto) 1.2 10 ^3/uL (1.6-8.6); Neutrophils % (auto) 37.7 % (37.0-80.0); Nucleated Red Blood Cells % 0.1 %; Platelet Count (auto) 216 10^3/uL (140-450); Red Blood Cells 4.82 10^6/uL (4.5-5.90); Red Cell Distribution Width 13.8 % (11.8-14.3); White Blood Cell 3.2 10^3/uL (4.4-10.8)
[2024-10-09 04:48] LABS: Chloride 108 mmol/L (98-107); Potassium 3.9 mmol/L (3.5-5.1); Sodium 145 mmol/L (136-145)
[2024-10-09 04:49] LABS: Anion Gap 12 (5-15); Calcium 9.3 mg/dL (8.7-10.4); Carbon Dioxide 25 mmol/L (20-31)
[2024-10-09 04:54] LABS: BUN/Creatinine Ratio 10.6 (10.0-20.0); Blood Urea Nitrogen 9 mg/dL (9-23)
[2024-10-09 05:02] LABS: Glucose 324 mg/dL (74-106)
[2024-10-09] MEDS: INSULIN LANTUS (GLARGINE) 1 /0.01ml (100units/ml) SC SCH (10:20)
--- NOTE | 2024-10-09 12:29 | DVHPN2 ---
Reviewed: Care Plan, H&P, Labs, Medications, Previous Orders, Radiology Changes from previous H/P or p: No Changes Eyes: No Pain, No Vision change, No Conjunctivae inflammation, No Eyelid inflammation, No Other, No Redness ENT: No Ear pain, No Ear discharge, No Nose pain, No Nose discharge, No Nose congestion, No Mouth pain, No Mouth swelling, No Throat pain, No Throat swelling, No Other Cardiovascular: No Chest Pain, No Palpitations, No Orthopnea, No Paroxysmal Noc. Dyspnea, No Edema, No Lt Headedness, No Other Respiratory: No Cough, No Dry, No Shortness of breath, No SOB with excertion, No Wheezing, No Hemoptysis, No Pleuritic Pain, No Sputum, No Other Gastrointestinal: No Nausea, No Vomiting, No Abdominal Pain, No Diarrhea, No Constipation, No Melena, No Hematochezia, No Other Genitourinary: No Dysuria, No Frequency, No Incontinence, No Hematuria, No Retention, No Other Musculoskeletal: No other, No neck pain, No shoulder pain, No arm pain, No back pain, No hand pain, No leg pain, No foot pain Skin: No Rash, No Lesions, No Jaundice, No Bruising, No Other Objective Vitals Vital Signs Date Time Temp Pulse Resp B/P (MAP) Pulse Ox O2 Delivery O2 Flow Rate FiO2 10/09/24 09:00 98.0 90 18 121/69 (86) 96 98.0 10/09/24 08:04 Room Air* 0 21 Intake/Output Intake and Output 10/09/24 07:00 Intake Total 1000 ml Balance 1000 ml IV Total 1000 ml Medications Current Medications Medications Dose Ordered Sig/Toño Route Start Time Stop Time Status Last Admin Dose Admin Diagnostic Test (Pha) 1 strip IQ4HR 10/09/24 04:00 10/09/24 11:49 1 STRIP Insulin Human Regular IQ4HR SC 10/09/24 04:00 10/09/24 11:48 20 UNITS Dextrose 50 ml UD PRN IV 10/09/24 03:00 Insulin Human Regular 15 units ACHS SC 10/09/24 07:00 10/09/24 07:00 15 UNITS Insulin Glargine 30 units BID SC 10/09/24 10:00 10/09/24 10:20 30 UNITS Sodium Chloride 1,000 ml @ 250 mls/hr Q4H IV 10/09/24 03:00 10/09/24 10:22 250 MLS/HR Lorazepam 0.5 mg Q6HP PRN PO 10/09/24 03:00 Al Hydrox/Mg Hydrox/Simethicone 30 ml Q6HP PRN PO 10/09/24 03:00 Docusate Sodium 100 mg BIDPRN PRN PO 10/09/24 03:00 Acetaminophen 650 mg Q6HP PRN PO 10/09/24 03:00 Temazepam 15 mg QHSP PRN PO 10/09/24 03:00 Acetaminophen/ Hydrocodone Bitart 1 tab Q4HP PRN PO 10/09/24 03:00 Ondansetron HCl 4 mg Q4HP PRN IV 10/09/24 03:00 Morphine Sulfate 2 mg Q4HPRN PRN IV 10/09/24 03:00 Laboratory Results Laboratory Tests 10/09/24 04:10 Chemistry Test 10/09/24 00:17 10/09/24 04:10 Calcium Level 9.8 mg/dL (8.7-10.4) 9.3 mg/dL (8.7-10.4) Magnesium Level 2.4 mg/dL (1.6-2.6) Phosphorus Level 5.2 mg/dL (2.4-5.1) H Urinalysis Test 10/08/24 23:43 Urine Color Colorless (Yellow) Urine Clarity Clear (Clear) Urine pH 5.5 (5.0-9.0) Urine Specific [place] 1.032 (1.001-1.035) Urine Protein Negative (Negative) Urine Ketones Negative (Negative) Urine Blood Negative /uL (Negative) Urine Nitrite Negative (Negative) Urine Bilirubin Negative (Negative) Urine Urobilinogen Normal mg/dL (Negative) Urine Leukocyte Esterase Negative /uL (Negative) Urine RBC <1 /hpf (0 - 3) Urine WBC None seen /hpf (0 - 3) Urine Squamous Epithelial Cells None seen /hpf (<5) Urine Bacteria None seen /hpf (None Seen) Urine Glucose 4+ mg/dL (Normal) H Blood Gas Results Test 10/09/24 00:13 Arterial Blood pH 7.351 (7.350-7.450) FiO2 % 21.0 Labs and/or images reviewed: Labs reviewed by me, Image(s) reviewed by me Assessment/Plan Assessment/Plan Acute diabetic ketoacidosis pressure 600, , Lantus 30 units b.i.d. 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
[2024-10-10 05:00] VITALS: BP 109/73; PULSE 64; RESP 16; TEMP 97.9; O2SAT 100
[2024-10-10] MEDS: InsuLIN REG 1unit/0.01ml Soln (100units/ml) SC SCH (06:00)
[2024-10-10 08:00] VITALS: BP 116/71; PULSE 63; RESP 18; TEMP 98; O2SAT 97
[2024-10-10 08:02] VITALS: PULSE 66
[2024-10-10 12:00] VITALS: BP 113/69; PULSE 73; RESP 18; TEMP 98; O2SAT 95
--- NOTE | 2024-10-10 13:39 | DVHDS2 ---
Discharge Summary Date of Admission Oct 09, 2024 at 02:54 Date of Discharge: Oct 10, 2024 Admitting Diagnosis Uncontrolled diabetes Wounds: None Labs/Diagnostic Data: Laboratory Results Test 10/10/24 11:44 10/09/24 04:10 10/09/24 00:17 10/09/24 00:13 POC Glucose 191 mg/dl (70-106) White Blood Count 3.2 10^3/uL (4.4-10.8) Red Blood Count 4.82 10^6/uL (4.5-5.90) Hemoglobin 15.5 g/dL (13.5-17.5) Hematocrit 44.9 % (41.0-53.0) Mean Corpuscular Volume 93.1 fL (80.0-100.0) Mean Corpuscular Hemoglobin 32.2 pg (28.0-32.0) Mean Corpuscular Hemoglobin Concent 34.5 g/dL (32.0-36.0) Red Cell Distribution Width 13.8 % (11.8-14.3) Platelet Count 216 10^3/uL (140-450) Mean Platelet Volume 7.8 fL (6.9-10.8) Neutrophils (%) (Auto) 37.7 % (37.0-80.0) Lymphocytes (%) (Auto) 40.9 % (10.0-50.0) Monocytes (%) (Auto) 16.5 % (0.0-12.0) Eosinophils (%) (Auto) 2.9 % (0.0-7.0) Basophils (%) (Auto) 2.0 % (0.0-2.0) Neutrophils # (Auto) 1.2 10 ^3/uL (1.6-8.6) Lymphocytes # (Auto) 1.3 10 ^3/uL (0.4-5.4) Monocytes # (Auto) 0.5 10 ^3/uL (0-1.3) Eosinophils # (Auto) 0.1 10 ^3/uL (0-0.8) Basophils # (Auto) 0.1 10 ^3/uL (0-0.2) Nucleated Red Blood Cells 0.1 % Sodium Level 145 mmol/L (136-145) Potassium Level 3.9 mmol/L (3.5-5.1) Chloride Level 108 mmol/L (98-107) Carbon Dioxide Level 25 mmol/L (20-31) Anion Gap 12 (5-15) Blood Urea Nitrogen 9 mg/dL (9-23) Creatinine 0.85 mg/dL (0.700-1.30) Glomerular Filtration Rate Calc 120 mL/min (>90) BUN/Creatinine Ratio 10.6 (10.0-20.0) Serum Glucose 324 mg/dL (74-106) Calcium Level 9.3 mg/dL (8.7-10.4) Phosphorus Level 5.2 mg/dL (2.4-5.1) Magnesium Level 2.4 mg/dL (1.6-2.6) Beta-Hydroxybutyric Acid 0.679 mmol/L (< 0.4) Blood Gas Specimen Type Arterial Blood Gas Sample Site Left radial Blood Gas Patient Temperature 37.0 Arterial Blood Date Drawn [id number] Arterial Blood pH 7.351 (7.350-7.450) Arterial Blood Partial Pressure CO2 41.4 mmHg (35.0-48.0) Arterial Blood Partial Pressure O2 80.3 mmHg (83.0-108.0) Arterial Blood HCO3 22.4 mmol/L (21.0-28.0) Arterial Blood Oxygen Saturation 94.2 % (94.0-98.0) Arterial Blood Base Excess -3.0 mmol/L (-2.0-3.0) Arterial Blood Oxyhemoglobin 92.3 % (94.0-98.0) Arterial Blood Carboxyhemoglobin 1.6 % (0.5-1.5) Arterial Blood Methemoglobin 0.4 % (0.0-1.5) [place] Test Yes Blood Gas Total Hemoglobin 16.40 g/dL (13.5-17.5) Blood Gas Modality Room air FiO2 % 21.0 Test 10/08/24 23:43 Urine Color Colorless (Yellow) Urine Clarity Clear (Clear) Urine pH 5.5 (5.0-9.0) Urine Specific [place] 1.032 (1.001-1.035) Urine Protein Negative (Negative) Urine Ketones Negative (Negative) Urine Blood Negative /uL (Negative) Urine Nitrite Negative (Negative) Urine Bilirubin Negative (Negative) Urine Urobilinogen Normal mg/dL (Negative) Urine Leukocyte Esterase Negative /uL (Negative) Urine RBC <1 /hpf (0 - 3) Urine WBC None seen /hpf (0 - 3) Urine Squamous Epithelial Cells None seen /hpf (<5) Urine Bacteria None seen /hpf (None Seen) Urine Glucose 4+ mg/dL (Normal) Other Laboratory Tests 10/09/24 04:10 Brief Hx & Hospital Course: 29-year-old male type 1 diabetes on insulin noncompliant frequent admissions admitted for DKA was in the range of 600. A1c 10.5 treated with the insulin IV fluids and blood sugars came down. He ran out of insulin three days ago. Handwritten Prescription given for Lantus and Novolin R. He was educated about compliance. Consults/Reason for consult None Operations or Procedures None Condition at Discharge: Fair Final Diagnosis/Problems List Acute diabetic ketoacidosis Type 1 diabetes Noncompliance Discharge Disposition: Home Discharge Instruct/Medications Diet: Consistent carbohydrate Activity: Light activity Follow Up/Referral: Follow up With the primary Dr Use medications as prescribed Medications: Handwritten prescription for Lantus and Novolin R 35 (Time Taken for discharge summary 35 minutes) Discharge Statement: "Patient was advised to return to the ER or call 911 if any headaches, dizziness, shortness of breath, chest pain, abdominal pain, bleeding, fevers, or worsening of medical condition. Patient was counseled about treatment plan, medications, possible side effects, patientverbalized understanding. All questions were answered to the best of my ability. This discharge took greater then 30 minutes in planning, reviewing documentation, counseling the patient, and discussing with other team members." ASSESSMENT ASSESSMENT Hospital Course Improved Assessment Acute diabetic ketoacidosis Type 1 diabetes Noncompliance Date of Service: Oct 10, 2024 Billing Provider: CHATO KO MD Common Visit Codes: [id number] INP/OBS CARE(HIGH) CHATO KO MD Oct 10, 2024 13:39
[2024-10-10 14:13] VITALS: BP 113/69; PULSE 73; RESP 18; TEMP 36.7; O2SAT 95
== END 2024-10-10 14:50 | disposition home or self-care (01) | DRG 420 ==
LOC: ER 23:13 → OVERFLOW 10-09 02:54 → TELE 10-09 03:03 → TELE-WESTW 10-09 06:40
PROVIDERS: ADMIT Hospitalist; ATTEND Family Medicine
DX: E10.10 Type 1 diabetes mellitus with ketoacidosis without coma (principal); E86.0 Dehydration; F17.210 Nicotine dependence, cigarettes, uncomplicated; Z59.00 Homelessness unspecified; Z91.199 Patient's noncompliance with other medical treatment and regimen due to unspecified reason; Z88.0 Allergy status to penicillin; Z79.4 Long term (current) use of insulin; Z88.1 Allergy status to other antibiotic agents; Z88.8 Allergy status to other drugs, medicaments and biological substances
CPT/HCPCS: 36415; 36600; 80048; 81001; 82010; 82805; 82962; 83735; 84100; 85025; 99291; G0378; J1815; J2405

== ENCOUNTER 2024-11-05 22:02 | Inpatient (IN) | payer MEDICAID ==
[~2024-11-05] VITALS: Ht 177.8 cm; Wt 67.4 kg
--- NOTE | 2024-11-05 22:42 | ED.PDOC ---
History of present illness HPI Comments 29-year-old male who came to ER for hyperglycemia. Patient been seen and admitted here multiple times for diabetic ketoacidosis. Patient is homeless, does have history of methamphetamine and alcohol abuse, has history of diabetes, and he admits that he is not taking his medications for it. Patient coming in feeling dehydrated and weak. Feels like he is having another DKA. Blood sugar upon arrival was 457. Chief Complaint: Hyperglycemia Time Seen by MD: 22:41 Primary Care Provider: NONE History of present illness: Nurses Notes Allergies: Coded Allergies: Penicillin G (Verified Allergy, Unknown, 07/01/22) Penicillins (Unverified Allergy, Unknown, 07/01/22) Piperacillin (Verified Allergy, Unknown, 10/23/23) Tazobactam (Verified Allergy, Unknown, 10/23/23) Home Meds Active Scripts Insulin Glargine (Lantus Solostar) 100 Unit/Ml Inj, 30 UNITS SC BID for 30 Days, #1 INJ 5 Refills Prov:YISSEL MANUEL MD 09/19/24 Insulin Regular (Human) (Novolin R) 100 Unit/Ml Inj, 10 UNITS SC ACHS for 30 Days, #3 UNITS 5 Refills Prov:YISSEL MANUEL MD 09/19/24 Insulin Syringes (Disposable) (Bd Insulin Syringe Luer-L) 1 Ml Mis, ML XX 6XD, # 120 3 Refills Prov:LALITA WATKINS NP 08/25/24 Insulin Syringe/Needle U-100 (ADVOCATE INSULIN SYRINGE/) 0.5 Mg/31 G Mis, APPLIC XX, #100 Use as directed Prov:CLAUDIA BOOKER RESIDENT 07/11/24 Insulin Syringe/Needle U-100 (ADVOCATE INSULIN SYRINGE/) 1 Ml/31 G Mis, ML XX TID PRN, #100 3 Refills use for insulin administration Prov:CHI MARQUEZ RESIDENT 04/12/24 Blood Glucose Monitoring Suppl (D-Care Glucometer Kit/Glu W/Device) 1 Kit Kit, KIT SC 5XD PRN, #1 1 Refill please check serum glucose before each meal. Prov:CHI MARQUEZ RESIDENT 04/12/24 Information Source: Patient Mode of Arrival: Ambulatory Timing: Hours Duration: Since onset Prehospital treatment: Accucheck Baker: Shaky Symptoms: Anxious, Shaky, Sweaty History of: Diabetes, Frequent hyperglycemic Past Medical History PAST MEDICAL HISTORY: Anxiety, Depression, DM, [place] Past Medical History (Other): Diabetic ketoacidosis Surgical History: Denies all surgeries Family History Family History: Reviewed,noncontributory to illness, Family hx of DM Social History Smoker: Cigarettes Alcohol: Heavy Drugs: Methamphetamine Lives In: Homeless Constitutional: reports: fatigue, weakness, others (Dehydrated); denies: chills, diaphoresis, fever, malaise, sweats EENTM: denies: blurred vision, double vision, ear bleeding, ear discharge, ear drainage, ear pain, ear ringing, eye pain, eye redness, hearing loss, mouth pain, mouth swelling, nasal discharge, nose bleeding, nose congestion, nose pain, photophobia, tearing, throat pain, throat swelling, voice changes, others Respiratory: denies: cough, hemoptysis, orthopnea, SOB at rest, shortness of breath, SOB with excertion, stridor, wheezing, others Cardiovascular: denies: chest pain, dizzy spells, diaphoresis, Dyspnea on exertion, edema, irregular heart beat, left arm pain, lightheadedness, palpitations, PND, syncope, others Gastrointestinal: denies: abdomen distended, abdominal pain, blood streaked bowels, constipated, diarrhea, dysphagia, difficulty swallowing, hematemesis, melena, nausea, poor appetite, poor fluid intake, rectal bleeding, rectal pain, vomiting, others Genitourinary: denies: burning, dysuria, flank pain, frequency, hematuria, incontinence, penile discharge, penile sore, pain, testicle pain, testicle swelling, urgency, others Neurological: denies: dizziness, fainting, headache, left sided numbness, left sided weakness, numbness, paresthesia, pre-existing deficit, right sided numbness, right sided weakness, seizure, speech problems, tingling, tremors, weakness, others Musculoskeletal: denies: back pain, gout, joint pain, joint swelling, muscle pain, muscle stiffness, neck pain, others Integumetry: denies: bruises, change in color, change in hair/nails, dryness, laceration, lesions, lumps, rash, wounds, others Allergic/Immunocompromised: denies: Difficulty Healing, Frequent Infections, Hives, Itching, others Hematologic/Lymphatic: denies: anemia, blood clots, easy bleeding, easy bruising, swollen glands, others Endocrine: denies: excessive hunger, excessive sweating, excessive thirst, excessive urination, flushing, intolerance to cold, intolerance to heat, unexplained weight gain, unexplained weight loss, others Psychiatric: denies: anxiety, bipolar disorder, depression, hopeless, panic disorder, schizophrenia, sleepless, suicidal, others Physical Exam General Appearance: No Apparent Distress, Normal HEENT: Normal ENT Inspection, Pharynx Normal, TMs Normal Neck: Full Range of Motion, Non-Tender, Normal, Normal Inspection Respiratory: Chest Non-Tender, Lungs Clear, No Accessory Muscle Use, No Respiratory Distress, Normal Breath Sounds Cardiovascular: No Edema, No JVD, No Murmur, No Gallop, Normal Peripheral Pulses, Regular Rate/Rhythm Breast Exam: Deferred Gastrointestinal: No Organomegaly, Non Tender, No Pulsatile Mass, Normal Bowel Sounds, Soft Genitalia: Deferred Pelvic: Deferred Rectal: Deferred Extremities: No calf tenderness, Normal capillary refill, Normal inspection, Normal range of motion, Non-tender, No pedal edema Musculoskeletal : Apperance: Normal Neurologic: Alert, finisher operator II-XII nml as 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 Was a procedure done?: No Differential Diagnosis (DM) Differential Diagnosis: DKA, Electrolyte Abnormality, Gastritis, Gastroenteritis, Other (Substance and alcohol abuse) X-Ray, Labs, Meds, VS Vital Signs Date Time Temp Pulse Resp B/P (MAP) Pulse Ox O2 Delivery O2 Flow Rate FiO2 11/06/24 01:33 87 16 96 Room Air 11/06/24 01:33 98.6 87 16 131/71 (91) 96 98.6 11/06/24 01:13 98.5 87 16 131/71 (91) 96 98.5 11/05/24 22:27 98.0 99 20 113/82 (92) 99 Lab Test 11/06/24 01:12 11/06/24 00:10 11/05/24 22:12 11/05/24 22:11 Range/Units POC Glucose 468 *H 410 *H 457 *H 70-106 mg/dl White Blood Count 4.4 4.4-10.8 10^3/uL Red Blood Count 4.58 4.5-5.90 10^6/uL Hemoglobin 14.5 13.5-17.5 g/dL Hematocrit 43.1 41.0-53.0 % Mean Corpuscular Volume 94.2 80.0-100.0 fL Mean Corpuscular Hemoglobin 31.7 28.0-32.0 pg Mean Corpuscular Hemoglobin Concent 33.7 32.0-36.0 g/dL Red Cell Distribution Width 13.5 11.8-14.3 % Platelet Count 196 140-450 10^3/uL Mean Platelet Volume 8.3 6.9-10.8 fL Neutrophils (%) (Auto) 48.6 37.0-80.0 % Lymphocytes (%) (Auto) 35.3 10.0-50.0 % Monocytes (%) (Auto) 14.0 H 0.0-12.0 % Eosinophils (%) (Auto) 1.3 0.0-7.0 % Basophils (%) (Auto) 0.8 0.0-2.0 % Neutrophils # (Auto) 2.1 1.6-8.6 10 ^3/uL Lymphocytes # (Auto) 1.5 0.4-5.4 10 ^3/uL Monocytes # (Auto) 0.6 0-1.3 10 ^3/uL Eosinophils # (Auto) 0.1 0-0.8 10 ^3/uL Basophils # (Auto) 0 0-0.2 10 ^3/uL Nucleated Red Blood Cells 0.3 % Sodium Level 132 L 136-145 mmol/L Potassium Level 4.3 3.5-5.1 mmol/L Chloride Level 96 L 98-107 mmol/L Carbon Dioxide Level 20 20-31 mmol/L Anion Gap 16 H 5-15 Blood Urea Nitrogen 12 9-23 mg/dL Creatinine 0.90 0.700-1.30 mg/dL Glomerular Filtration Rate Calc 118 >90 mL/min BUN/Creatinine Ratio 13.3 10.0-20.0 Serum Glucose 497 *H 74-106 mg/dL Lactic Acid Level 2.8 *H 0.4-2.0 mmol/L Calcium Level 9.5 8.7-10.4 mg/dL Total Bilirubin 0.4 0.2-1.0 mg/dL Aspartate Amino Transferase (AST) 68 H 13-40 U/L Alanine Aminotransferase (ALT) 62 H 7-40 U/L Alkaline Phosphatase 129 H 46-116 U/L B-Type Natriuretic Peptide 14.21 0-100 pg/mL Total Protein 6.8 5.7-8.2 g/dL Albumin 4.2 3.2-4.8 g/dL Beta-Hydroxybutyric Acid 0.658 H < 0.4 mmol/L Current Medications Medications (Trade) Dose Ordered Sig/Toño Route Start Time Stop Time Status Last Admin Sodium Chloride 1,000 ml @ 1,000 mls/hr Q1H ONCE IV 11/05/24 23:15 11/06/24 00:14 DC 11/06/24 01:28 Ondansetron HCl (Zofran) 4 mg ONCE ONCE IV 11/05/24 23:15 11/05/24 23:16 DC 11/06/24 01:36 CHEST RADIOGRAPH FINDINGS: Lines and Tubes: None Lungs: Clear Pleura: No effusion. No pneumothorax. Cardiomediastinal contours: Unremarkable Bones: Unremarkable IMPRESSION: 1. Clear lungs. Time of 1ST Reevaluation: 22:39 Reevaluation 1ST: Unchanged Patient Education/Counseling: Diagnosis, Treatment Family Education/Counseling: No Family Present Departure 1 Departure Time of Disposition: 01:43 (Patient with uncontrolled diabetes. Patient also with intractable nausea and vomiting. We will admit patient for further workup.) Impression: Primary Impression: Uncontrolled diabetes mellitus Qualified Codes: E11.65 - Type 2 diabetes mellitus with hyperglycemia Additional Impression: Projectile vomiting with nausea Disposition: ADMITTED INPATIENT Admit to: Med Surg Condition: Guarded Critical Care Note Critical Care Time?: Yes (35 min-critical care time only) Critical care comment: Uncontrolled diabetes with hyperglycemia Authorized and Performed by: Dhaval Lacy MD Total critical care time: Approximately 39 minutes Due to a high probability of clinically significant, life threatening deterioration, the patient required my highest level of preparedness to intervene emergently and I personally spent this critical care time directly and personally managing the patient. This critical care time included obtaining a history; examining the patient; pulse oximetry; ordering and review of studies; arranging urgent treatment with development of a management plan; evaluation of patient's response to treatment; frequent reassessment; and, discussions with other providers. This critical care time was performed to assess and manage the high probability of imminent, life-threatening deterioration that could result in multi-organ failure. It was exclusive of separately billable procedures and treating other patients and teaching time. Please see my other sections and the rest of the note for further information on patient assessment and treatment. Stability Stability form required: No Heart Score Heart Score: Heart Score Response (Comments) Value History N/A 0 EKG N/A 0 Age N/A 0 Risk Factors N/A 0 Troponin N/A 0 Total 0 I personally scribed for DHAVAL LACY MD ([email or web address] on 11/05/24 at 22:42. Electronically submitted by Rell Cotton ([email or web address]). I personally scribed for DHAVAL LACY MD ([facility] on 11/06/24 at 00:00. Electronically submitted by Rell Cotton ([email or web address]). DHAVAL LACY MD Nov 05, 2024 22:42
--- NOTE | 2024-11-05 23:35 | DVH ---
CHEST RADIOGRAPH Indication: nausea and vomiting Technique: Single frontal view of the chest was obtained Comparison: XY CHEST PORTABLE on DOS: 08/04/24, XY CHEST PORTABLE on DOS: 06/27/24, XY CHEST XRAY 1 VIEW on DOS: 06/24/24 FINDINGS: Lines and Tubes: None Lungs: Clear Pleura: No effusion. No pneumothorax. Cardiomediastinal contours: Unremarkable Bones: Unremarkable IMPRESSION: 1. Clear lungs.
[2024-11-06 00:22] LABS: Basophils # (auto) 0 10 ^3/uL (0-0.2); Basophils % (auto) 0.8 % (0.0-2.0); Eosinophils # (auto) 0.1 10 ^3/uL (0-0.8); Eosinophils % (auto) 1.3 % (0.0-7.0); Hematocrit 43.1 % (41.0-53.0); Hemoglobin 14.5 g/dL (13.5-17.5); Lymphocytes # (auto) 1.5 10 ^3/uL (0.4-5.4); Lymphocytes % (auto) 35.3 % (10.0-50.0); Mean Corpuscular Hemoglobin 31.7 pg (28.0-32.0); Mean Corpuscular Hgb Conc. 33.7 g/dL (32.0-36.0); Mean Corpuscular Volume 94.2 fL (80.0-100.0); Monocytes # (auto) 0.6 10 ^3/uL (0-1.3); Neutrophils # (auto) 2.1 10 ^3/uL (1.6-8.6); Neutrophils % (auto) 48.6 % (37.0-80.0); Nucleated Red Blood Cells % 0.3 %; Platelet Count (auto) 196 10^3/uL (140-450); Red Blood Cells 4.58 10^6/uL (4.5-5.90); Red Cell Distribution Width 13.5 % (11.8-14.3); White Blood Cell 4.4 10^3/uL (4.4-10.8)
[2024-11-06 00:52] LABS: Lactic Acid w/Reflex 2.8 mmol/L (0.4-2.0)
[2024-11-06] MEDS: SODIUM CHLORIDE 0.9% 1,000 ML IV ONE ×2 (01:28→02:06)
[2024-11-06 01:33] LABS: Albumin 4.2 g/dL (3.2-4.8); Alkaline Phosphatase 129 U/L (46-116); Anion Gap 16 (5-15); BUN/Creatinine Ratio 13.3 (10.0-20.0); Bilirubin, Total 0.4 mg/dL (0.2-1.0); Blood Urea Nitrogen 12 mg/dL (9-23); Calcium 9.5 mg/dL (8.7-10.4); Carbon Dioxide 20 mmol/L (20-31); Chloride 96 mmol/L (98-107); Potassium 4.3 mmol/L (3.5-5.1); Sodium 132 mmol/L (136-145)
[2024-11-06 01:34] LABS: Alanine Aminotransferase 62 U/L (7-40); Aspartate Aminotransferase 68 U/L (13-40); Glucose 497 mg/dL (74-106); Total Protein 6.8 g/dL (5.7-8.2)
[2024-11-06] MEDS: ONDANSETRON HCL 4 MG/2 ML VIAL IV ONE (01:36)
[2024-11-06] MEDS: InsuLIN REG 1unit/0.01ml Soln (100units/ml) IV ONE (02:05)
[2024-11-06 02:28] LABS: Urine Bacteria None Seen /hpf (None Seen); Urine WBC None Seen /hpf (0 - 3)
[2024-11-06 02:45] LABS: Urine Blood Negative /uL (Negative); Urine Clarity Clear (Clear); Urine Color Light-Yellow (Yellow); Urine Protein, UAD Negative (Negative); Urine Specific Gravity 1.031 (1.001-1.035); Urine Urobilinogen Normal (Negative); Urine pH 6.5 (5.0-9.0)
[2024-11-06 03:51] VITALS: PULSE 87; RESP 18; O2SAT 93
[2024-11-06] MEDS ORDERED: DEXTROSE (50%) 50ML SYRG IV PRN ×3 (07:15→21:30)
[2024-11-06] MEDS ORDERED: DOCUSATE SOD 100 MG CAP PO PRN ×2 (07:15→08:00)
[2024-11-06] MEDS ORDERED: LORazepam 0.5 MG TAB PO PRN ×2 (07:15→08:00)
[2024-11-06] MEDS ORDERED: MORPHINE SULFATE INJ 2 MG/ml SYRG IV PRN ×2 (07:15→08:00)
[2024-11-06] MEDS ORDERED: INSULIN DRIP 100 UNIT/100ML 100 ML IV SCH (07:15)
[2024-11-06] MEDS ORDERED: ACETAMINOPHEN 325 MG TAB PO PRN ×2 (07:15→08:00)
[2024-11-06] MEDS ORDERED: HYDROcodone-ACET 5/325MG TAB PO PRN ×2 (07:15→08:00)
[2024-11-06] MEDS ORDERED: SODIUM CHLORIDE 0.9% 1,000 ML IV SCH ×3 (07:15→13:15)
[2024-11-06] MEDS ORDERED: INSULIN LANTUS (GLARGINE) 1 /0.01ml (100units/ml) SC ONE (07:15)
[2024-11-06] MEDS ORDERED: ONDANSETRON HCL 4 MG/2 ML VIAL IV PRN ×2 (07:15→08:00)
[2024-11-06 07:30] VITALS: PULSE 87; RESP 13; O2SAT 97
[2024-11-06] MEDS ORDERED: ACCU-CHEK COMFORT CURVE STRIP VI SCH (07:30)
[2024-11-06 08:02] LABS: Base Excess -2.2 mmol/L (-2.0-3.0)
--- NOTE | 2024-11-06 08:04 | DVHHP2 ---
History of Present Illness Reason for Visit: hyperglycemia History of Present Illness José Gutierrez is a 29-year-old male with past medical history of diabetes who presents to the ED for hyperglycemia and thirst x1 day. The patient reports that he is homeless, currently has no primary care provider, also has no medications, and stated he had ran out of insulin. Patient denies smoking, drugs, alcohol use, nausea, vomiting, diarrhea, shortness of breath, chest pain, weakness, fever, chills, confusion, lightheadedness, and frequency. Endocrine: Diabetes Past Surgical History Left elbow fx Family History: None Smoke: No ALCOHOL: none Drugs: None Lives: Homeless Domestic Violence: Neg Review of Systems Constitutional: No: Fever, Chills, Sweats, Weakness, Malaise, Other Eyes: No: Pain, Vision change, Conjunctivae inflammation, Eyelid inflammation, Other, Redness ENT: No: Ear pain, Ear discharge, Nose pain, Nose discharge, Nose congestion, Mouth pain, Mouth swelling, Throat pain, Throat swelling, Other Respiratory: No: Cough, Dry, Shortness of breath, SOB with excertion, Wheezing, Hemoptysis, Pleuritic Pain, Sputum, Wheezing, Other Cardiovascular: No: Chest Pain, Palpitations, Orthopnea, Paroxysmal Noc. Dyspnea, Edema, Lt Headedness, Other Gastrointestinal: No: Nausea, Vomiting, Abdominal Pain, Diarrhea, Constipation, Melena, Hematochezia, Other Genitourinary: No Dysuria, No Frequency, No Incontinence, No Hematuria, No Retention, No Other Musculoskeletal: No: other, neck pain, shoulder pain, arm pain, back pain, hand pain, leg pain, foot pain Skin: No: Rash, Lesions, Jaundice, Bruising, Other Neurological: No: Weakness, Numbness, Incoordination, Change in speech, Confusion, Seizures, Other Other thirsty Allergies: Coded Allergies: Penicillin G (Verified Allergy, Unknown, 07/01/22) Penicillins (Unverified Allergy, Unknown, 07/01/22) Piperacillin (Verified Allergy, Unknown, 10/23/23) Tazobactam (Verified Allergy, Unknown, 10/23/23) Exam Vital Signs Vital Signs Date Time Temp Pulse Resp B/P (MAP) Pulse Ox O2 Delivery O2 Flow Rate FiO2 11/06/24 07:14 100 18 124/74 (91) 93 11/06/24 03:51 Room Air* 0 21 11/06/24 01:33 98.6 98.6 General Appearance: Alert, Oriented X3, Cooperative, No acute distress HEENT: Atraumatic, PERRLA, EOMI, Mucous membr. moist/pink Respiratory: Clear to auscultation, Normal air movement Cardiovascular: Regular rate, Normal S1, Normal S2, No murmurs Abdominal: Normal bowel sounds, Soft, No tenderness, No hepatospenomegaly, No masses Extremities: No clubbing, No cyanosis, No edema, Normal pulses, No tenderness/swelling Skin: No rashes, No breakdown, No significant lesion Neuro: Normal gait, Normal speech, Strength at 5/5 X4 ext, Normal tone, Sensation intact Psych/Mental Status: Mental status NL, Mood NL Labs/Xrays Labs Test 11/06/24 02:53 11/06/24 02:15 11/06/24 01:39 11/06/24 00:10 Range/Units POC Glucose 144 H 70-106 mg/dl Lactic Acid Level 1.7 0.4-2.0 mmol/L Urine Color Light-yellow Yellow Urine Clarity Clear Clear Urine pH 6.5 5.0-9.0 Urine Specific [place] 1.031 1.001-1.035 Urine Protein Negative Negative Urine Ketones Trace Negative Urine Blood Negative Negative /uL Urine Nitrite Negative Negative Urine Bilirubin Negative Negative Urine Urobilinogen Normal Negative mg/dL Urine Leukocyte Esterase Negative Negative /uL Urine RBC <1 0 - 3 /hpf Urine WBC None seen 0 - 3 /hpf Urine Squamous Epithelial Cells Few <5 /hpf Urine Bacteria None seen None Seen /hpf Urine Glucose 4+ H Normal mg/dL White Blood Count 4.4 4.4-10.8 10^3/uL Red Blood Count 4.58 4.5-5.90 10^6/uL Hemoglobin 14.5 13.5-17.5 g/dL Hematocrit 43.1 41.0-53.0 % Mean Corpuscular Volume 94.2 80.0-100.0 fL Mean Corpuscular Hemoglobin 31.7 28.0-32.0 pg Mean Corpuscular Hemoglobin Concent 33.7 32.0-36.0 g/dL Red Cell Distribution Width 13.5 11.8-14.3 % Platelet Count 196 140-450 10^3/uL Mean Platelet Volume 8.3 6.9-10.8 fL Neutrophils (%) (Auto) 48.6 37.0-80.0 % Lymphocytes (%) (Auto) 35.3 10.0-50.0 % Monocytes (%) (Auto) 14.0 H 0.0-12.0 % Eosinophils (%) (Auto) 1.3 0.0-7.0 % Basophils (%) (Auto) 0.8 0.0-2.0 % Neutrophils # (Auto) 2.1 1.6-8.6 10 ^3/uL Lymphocytes # (Auto) 1.5 0.4-5.4 10 ^3/uL Monocytes # (Auto) 0.6 0-1.3 10 ^3/uL Eosinophils # (Auto) 0.1 0-0.8 10 ^3/uL Basophils # (Auto) 0 0-0.2 10 ^3/uL Nucleated Red Blood Cells 0.3 % Sodium Level 132 L 136-145 mmol/L Potassium Level 4.3 3.5-5.1 mmol/L Chloride Level 96 L 98-107 mmol/L Carbon Dioxide Level 20 20-31 mmol/L Anion Gap 16 H 5-15 Blood Urea Nitrogen 12 9-23 mg/dL Creatinine 0.90 0.700-1.30 mg/dL Glomerular Filtration Rate Calc 118 >90 mL/min BUN/Creatinine Ratio 13.3 10.0-20.0 Serum Glucose 497 *H 74-106 mg/dL Calcium Level 9.5 8.7-10.4 mg/dL Total Bilirubin 0.4 0.2-1.0 mg/dL Aspartate Amino Transferase (AST) 68 H 13-40 U/L Alanine Aminotransferase (ALT) 62 H 7-40 U/L Alkaline Phosphatase 129 H 46-116 U/L B-Type Natriuretic Peptide 14.21 0-100 pg/mL Total Protein 6.8 5.7-8.2 g/dL Albumin 4.2 3.2-4.8 g/dL Beta-Hydroxybutyric Acid 0.658 H < 0.4 mmol/L CHEST RADIOGRAPH Indication: nausea and vomiting Technique: Single frontal view of the chest was obtained Comparison: XY CHEST PORTABLE on DOS: 08/04/24, XY CHEST PORTABLE on DOS: 06/27/24, XY CHEST XRAY 1 VIEW on DOS: 06/24/24 FINDINGS: Lines and Tubes: None Lungs: Clear Pleura: No effusion. No pneumothorax. Cardiomediastinal contours: Unremarkable Bones: Unremarkable IMPRESSION: 1. Clear lungs. 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 anion gap now closed FEN/PPX Diet ivf PUD ppx not indicated no hx of GERD DVT ppx not indicated patient ambulating Discussed plan of care with patient and nurse Admit to med surg Plan discussed with: Patient My Orders Orders - LAYO ABARCA [employer] Procedure Category Date Status Time Basic Metabolic Panel LAB 11/06/24 Logged 12:00 Basic Metabolic Panel LAB 11/06/24 Logged 18:00 Basic Metabolic Panel LAB 11/07/24 Verified 00:00 Basic Metabolic Panel LAB 11/07/24 Verified 06:00 Basic Metabolic Panel LAB 11/07/24 Verified 12:00 Basic Metabolic Panel LAB 11/07/24 Verified 18:00 Insulin Drip Protocol THEO 11/06/24 In Process Sodium Chloride 0.9% PHA 11/06/24 Logged 07:15 Sodium Chloride 0.9% PHA 11/06/24 Logged 11:15 Sodium Chloride 0.9% PHA 11/06/24 Logged 13:15 Insulin Drip 100 PHA 11/06/24 Logged Unit/100ml (Myxredlin 07:15 Dextrose 50% Syringe PHA 11/06/24 Logged 07:15 Glucose Blood PHA 11/06/24 Logged (Accu-Chek Comfort 07:30 Complete Blood Count LAB 11/06/24 Logged 07:10 Phosphorus LAB 11/06/24 Logged 07:10 Magnesium LAB 11/06/24 Logged 07:10 Osmolality, Serum LAB 11/06/24 Logged 07:10 Abg W/ Co-Ox RT 11/06/24 Logged 07:10 Basic Metabolic Panel LAB 11/06/24 Logged 07:10 Basic Metabolic Panel LAB 11/06/24 Logged 13:10 Basic Metabolic Panel LAB 11/06/24 Logged 19:10 Basic Metabolic Panel LAB 11/07/24 Verified 01:10 Urinalysis LAB 11/06/24 Logged 07:10 Neurological THEO 11/06/24 In Process Assessment 07:10 Vs/Hemodynamics [facility] 11/06/24 In Process 07:10 Acetone LAB 11/06/24 Logged 07:10 Insulin Lantus PHA 11/06/24 Logged (Glargine) (Lantus) 07:15 Insulin Lantus PHA 11/07/24 Logged (Glargine) (Lantus) 10:00 Beta-Hydroxybutyrate LAB 11/06/24 Logged 12:00 Beta-Hydroxybutyrate LAB 11/06/24 Logged 18:00 Beta-Hydroxybutyrate LAB 11/07/24 Verified 00:00 Beta-Hydroxybutyrate LAB 11/07/24 Verified 06:00 Beta-Hydroxybutyrate LAB 11/07/24 Verified 12:00 Beta-Hydroxybutyrate LAB 11/07/24 Verified 18:00 Admit ADMIT 11/06/24 Transmitted 07:10 Code Status CODE 11/06/24 Transmitted 07:10 Vital Signs [facility] 11/06/24 In Process 07:10 Review Orders With [facility] 11/06/24 In Process Adm. 07:10 Consistent DIET 11/06/24 Transmitted Carb(Ccho)Diabetes Breakfast Lorazepam Tablet [facility] 11/06/24 Logged (Ativan Tablet) 07:15 Docusate Sodium [facility] 11/06/24 Logged Capsule (Colace 07:15 Acetaminophen Tablet [facility] 11/06/24 Logged (Tylenol Tablet) 07:15 Notify Md Of Changes [facility] 11/06/24 In Process From Base 07:10 Advance Directive [facility] 11/06/24 In Process 07:10 Allergies [facility] 11/06/24 In Process 07:10 Hydrocodone-Acet [facility] 11/06/24 Logged 5/325mg Tab ([place] 07:15 Ondansetron Hcl [facility] 11/06/24 Logged (Zofran) 07:15 Morphine Sulfate PH[facility] 11/06/24 Logged Injection 07:15 Hemoglobin A1c LAB 11/06/24 Logged 07:10 Date of Service: Nov 06, 2024 Billing Provider: LAYO ABARCA Common Visit Codes: [id number] INP/OBS CARE (HIGH) LAYO ABARCAP Nov 06, 2024 08:03
[2024-11-06 08:22] LABS: Basophils # (auto) 0 10 ^3/uL (0-0.2); Basophils % (auto) 0.9 % (0.0-2.0); Eosinophils # (auto) 0.1 10 ^3/uL (0-0.8); Eosinophils % (auto) 1.5 % (0.0-7.0); Hematocrit 42.5 % (41.0-53.0); Hemoglobin 14.5 g/dL (13.5-17.5); Lymphocytes # (auto) 1.1 10 ^3/uL (0.4-5.4); Lymphocytes % (auto) 24.4 % (10.0-50.0); Mean Corpuscular Hemoglobin 31.7 pg (28.0-32.0); Mean Corpuscular Hgb Conc. 34.1 g/dL (32.0-36.0); Mean Corpuscular Volume 93.1 fL (80.0-100.0); Monocytes # (auto) 0.5 10 ^3/uL (0-1.3); Monocytes % (auto) 11.9 % (0.0-12.0); Neutrophils # (auto) 2.8 10 ^3/uL (1.6-8.6); Neutrophils % (auto) 61.3 % (37.0-80.0); Nucleated Red Blood Cells % 0.1 %; Platelet Count (auto) 171 10^3/uL (140-450); Red Blood Cells 4.56 10^6/uL (4.5-5.90); Red Cell Distribution Width 13.3 % (11.8-14.3); White Blood Cell 4.6 10^3/uL (4.4-10.8)
[2024-11-06 08:29] LABS: Chloride 101 mmol/L (98-107); Potassium 4.4 mmol/L (3.5-5.1)
[2024-11-06 08:30] LABS: Anion Gap 10 (5-15); Carbon Dioxide 23 mmol/L (20-31)
[2024-11-06 08:31] LABS: Calcium 8.7 mg/dL (8.7-10.4)
[2024-11-06 08:36] LABS: BUN/Creatinine Ratio 19.5 (10.0-20.0); Blood Urea Nitrogen 15 mg/dL (9-23)
[2024-11-06 08:40] LABS: Glucose 318 mg/dL (74-106); Sodium 134 mmol/L (136-145)
[2024-11-06 09:07] LABS: Phosphorus 4.4 mg/dL (2.4-5.1)
[2024-11-06] MEDS: INSULIN LANTUS (GLARGINE) 1 /0.01ml (100units/ml) SC ONE (09:15)
[2024-11-06 09:18] LABS: Magnesium 1.6 mg/dL (1.6-2.6)
[2024-11-06] MEDS: INSULIN DRIP 100 UNIT/100ML 100 ML IV SCH (09:37)
[2024-11-06] MEDS: SODIUM CHLORIDE 0.9% 1,000 ML IV SCH ×3 (09:41→16:31)
[2024-11-06] MEDS: ACCU-CHEK COMFORT CURVE STRIP VI SCH (11:10)
[2024-11-06 13:13] LABS: Chloride 106 mmol/L (98-107); Sodium 138 mmol/L (136-145)
[2024-11-06 13:14] LABS: Anion Gap 5 (5-15); Carbon Dioxide 27 mmol/L (20-31)
[2024-11-06 13:19] LABS: BUN/Creatinine Ratio 17.3 (10.0-20.0); Blood Urea Nitrogen 13 mg/dL (9-23)
[2024-11-06 13:21] LABS: Calcium 8.7 mg/dL (8.7-10.4); Glucose 228 mg/dL (74-106)
[2024-11-06 18:26] LABS: Chloride 106 mmol/L (98-107); Potassium 4.1 mmol/L (3.5-5.1); Sodium 140 mmol/L (136-145)
[2024-11-06 18:27] LABS: Anion Gap 6 (5-15); Calcium 8.8 mg/dL (8.7-10.4); Carbon Dioxide 28 mmol/L (20-31)
[2024-11-06 18:32] LABS: BUN/Creatinine Ratio 22.2 (10.0-20.0); Blood Urea Nitrogen 16 mg/dL (9-23)
[2024-11-06 18:33] LABS: Glucose 154 mg/dL (74-106)
[2024-11-06 19:24] LABS: Chloride 105 mmol/L (98-107); Potassium 4.4 mmol/L (3.5-5.1); Sodium 137 mmol/L (136-145)
[2024-11-06 19:25] LABS: Anion Gap 5 (5-15); Calcium 8.9 mg/dL (8.7-10.4); Carbon Dioxide 27 mmol/L (20-31)
[2024-11-06 19:30] LABS: BUN/Creatinine Ratio 14.5 (10.0-20.0); Blood Urea Nitrogen 11 mg/dL (9-23)
[2024-11-06 19:39] LABS: Glucose 219 mg/dL (74-106)
[2024-11-06 19:50] VITALS: O2SAT 96
[2024-11-07] MEDS: ACCU-CHEK COMFORT CURVE STRIP VI SCH (00:10)
[2024-11-07] MEDS: InsuLIN REG 1unit/0.01ml Soln (100units/ml) SC SCH (00:11)
[2024-11-07 07:09] LABS: Calcium 9.4 mg/dL (8.7-10.4); Chloride 103 mmol/L (98-107); Potassium 3.7 mmol/L (3.5-5.1); Sodium 137 mmol/L (136-145)
[2024-11-07 07:10] LABS: Basophils # (auto) 0 10 ^3/uL (0-0.2); Basophils % (auto) 0.8 % (0.0-2.0); Eosinophils # (auto) 0.1 10 ^3/uL (0-0.8); Hematocrit 44.9 % (41.0-53.0); Hemoglobin 15.7 g/dL (13.5-17.5); Lymphocytes # (auto) 1.5 10 ^3/uL (0.4-5.4); Lymphocytes % (auto) 28.7 % (10.0-50.0); Mean Corpuscular Hemoglobin 32.4 pg (28.0-32.0); Mean Corpuscular Hgb Conc. 35.1 g/dL (32.0-36.0); Mean Corpuscular Volume 92.3 fL (80.0-100.0); Monocytes # (auto) 0.9 10 ^3/uL (0-1.3); Monocytes % (auto) 16.7 % (0.0-12.0); Neutrophils # (auto) 2.8 10 ^3/uL (1.6-8.6); Neutrophils % (auto) 52.8 % (37.0-80.0); Nucleated Red Blood Cells % 0.1 %; Platelet Count (auto) 181 10^3/uL (140-450); Red Blood Cells 4.86 10^6/uL (4.5-5.90); Red Cell Distribution Width 13.3 % (11.8-14.3); White Blood Cell 5.3 10^3/uL (4.4-10.8)
[2024-11-07 07:14] LABS: Glucose 75 mg/dL (74-106)
[2024-11-07 07:15] LABS: Blood Urea Nitrogen 12 mg/dL (9-23)
[2024-11-07 07:34] VITALS: PULSE 77; RESP 13; O2SAT 94
[2024-11-07 08:32] LABS: Anion Gap 10 (5-15); Carbon Dioxide 24 mmol/L (20-31)
[2024-11-07 08:43] VITALS: PULSE 80; RESP 16; O2SAT 96
[2024-11-07] MEDS: INSULIN LANTUS (GLARGINE) 1 /0.01ml (100units/ml) SC SCH (09:55)
[2024-11-07] MEDS ORDERED: INSULIN LANTUS (GLARGINE) 1 /0.01ml (100units/ml) SC SCH (10:00)
[2024-11-07 10:30] VITALS: BP 123/86; PULSE 70; RESP 16; TEMP 98.3; O2SAT 94
[2024-11-07] MEDS ORDERED: BLOO1KIT60 SC (11:39)
[2024-11-07] MEDS ORDERED: INSUINJ37 SC (11:39)
[2024-11-07] MEDS ORDERED: INSU1MIS36 XX (11:39)
[2024-11-07] MEDS ORDERED: INSU-567 XX (11:39)
[2024-11-07] MEDS ORDERED: INSREGI SC (11:39)
[2024-11-07] MEDS ORDERED: [UNRECOGNIZED DRUG - CODE] XX (11:39)
--- NOTE | 2024-11-07 18:44 | DVHDS2 ---
Discharge Summary Date of Admission Nov 06, 2024 at 07:10 Date of Discharge: Nov 07, 2024 Labs/Diagnostic Data: Laboratory Results Test 11/07/24 09:48 11/07/24 06:29 11/06/24 18:04 11/06/24 09:47 POC Glucose 345 mg/dl (70-106) White Blood Count 5.3 10^3/uL (4.4-10.8) Red Blood Count 4.86 10^6/uL (4.5-5.90) Hemoglobin 15.7 g/dL (13.5-17.5) Hematocrit 44.9 % (41.0-53.0) Mean Corpuscular Volume 92.3 fL (80.0-100.0) Mean Corpuscular Hemoglobin 32.4 pg (28.0-32.0) Mean Corpuscular Hemoglobin Concent 35.1 g/dL (32.0-36.0) Red Cell Distribution Width 13.3 % (11.8-14.3) Platelet Count 181 10^3/uL (140-450) Mean Platelet Volume 8.2 fL (6.9-10.8) Neutrophils (%) (Auto) 52.8 % (37.0-80.0) Lymphocytes (%) (Auto) 28.7 % (10.0-50.0) Monocytes (%) (Auto) 16.7 % (0.0-12.0) Eosinophils (%) (Auto) 1.0 % (0.0-7.0) Basophils (%) (Auto) 0.8 % (0.0-2.0) Neutrophils # (Auto) 2.8 10 ^3/uL (1.6-8.6) Lymphocytes # (Auto) 1.5 10 ^3/uL (0.4-5.4) Monocytes # (Auto) 0.9 10 ^3/uL (0-1.3) Eosinophils # (Auto) 0.1 10 ^3/uL (0-0.8) Basophils # (Auto) 0 10 ^3/uL (0-0.2) Nucleated Red Blood Cells 0.1 % Sodium Level 137 mmol/L (136-145) Potassium Level 3.7 mmol/L (3.5-5.1) Chloride Level 103 mmol/L (98-107) Carbon Dioxide Level 24 mmol/L (20-31) Anion Gap 10 (5-15) Blood Urea Nitrogen 12 mg/dL (9-23) Creatinine 0.63 mg/dL (0.700-1.30) Glomerular Filtration Rate Calc 131 mL/min (>90) BUN/Creatinine Ratio 19.0 (10.0-20.0) Serum Glucose 75 mg/dL (74-106) Calcium Level 9.4 mg/dL (8.7-10.4) Beta-Hydroxybutyric Acid 0.299 mmol/L (< 0.4) Urine Ketones 1+ (Negative) Test 11/06/24 07:55 11/06/24 07:51 11/06/24 02:15 11/06/24 01:39 Hemoglobin A1c 11.0 % A1C (<5.7) Serum Osmolality 295 mOsm/kg (278-298) Phosphorus Level 4.4 mg/dL (2.4-5.1) Magnesium Level 1.6 mg/dL (1.6-2.6) Blood Gas Specimen Type Arterial Blood Gas Sample Site Right radial Blood Gas Patient Temperature 37.0 Arterial Blood Date Drawn [id number] Arterial Blood pH 7.368 (7.350-7.450) Arterial Blood Partial Pressure CO2 40.7 mmHg (35.0-48.0) Arterial Blood Partial Pressure O2 75.3 mmHg (83.0-108.0) Arterial Blood HCO3 22.9 mmol/L (21.0-28.0) Arterial Blood Oxygen Saturation 93.8 % (94.0-98.0) Arterial Blood Base Excess -2.2 mmol/L (-2.0-3.0) Arterial Blood Oxyhemoglobin 92.1 % (94.0-98.0) Arterial Blood Carboxyhemoglobin 1.4 % (0.5-1.5) Arterial Blood Methemoglobin 0.4 % (0.0-1.5) [place] Test Yes Blood Gas Total Hemoglobin 14.90 g/dL (13.5-17.5) Blood Gas Modality Room air FiO2 % 21.0 Lactic Acid Level 1.7 mmol/L (0.4-2.0) Urine Color Light-yellow (Yellow) Urine Clarity Clear (Clear) Urine pH 6.5 (5.0-9.0) Urine Specific [place] 1.031 (1.001-1.035) Urine Protein Negative (Negative) Urine Blood Negative /uL (Negative) Urine Nitrite Negative (Negative) Urine Bilirubin Negative (Negative) Urine Urobilinogen Normal mg/dL (Negative) Urine Leukocyte Esterase Negative /uL (Negative) Urine RBC <1 /hpf (0 - 3) Urine WBC None seen /hpf (0 - 3) Urine Squamous Epithelial Cells Few /hpf (<5) Urine Bacteria None seen /hpf (None Seen) Urine Glucose 4+ mg/dL (Normal) Test 11/06/24 00:10 Total Bilirubin 0.4 mg/dL (0.2-1.0) Aspartate Amino Transferase (AST) 68 U/L (13-40) Alanine Aminotransferase (ALT) 62 U/L (7-40) Alkaline Phosphatase 129 U/L (46-116) B-Type Natriuretic Peptide 14.21 pg/mL (0-100) Total Protein 6.8 g/dL (5.7-8.2) Albumin 4.2 g/dL (3.2-4.8) Other Laboratory Tests 11/07/24 06:29 Brief Hx & Hospital Course: José Gutierrez is a 29-year-old male with past medical history of diabetes who presents to the ED for hyperglycemia and thirst x1 day. The patient reports that he is homeless, currently has no primary care provider, also has no medications, and stated he had ran out of insulin. Patient denies smoking, drugs, alcohol use, nausea, vomiting, diarrhea, shortness of breath, chest pain, weakness, fever, chills, confusion, lightheadedness, and frequency. Condition at Discharge: Good Final Diagnosis/Problems List diabetic ketoacidosis poor compliance with medications Discharge Disposition: Home Discharge Instruct/Medications Diet: Regular Activity: No Restrictions, As Tolerated Discharge Statement: "Patient was advised to return to the ER or call 911 if any headaches, dizziness, shortness of breath, chest pain, abdominal pain, bleeding, fevers, or worsening of medical condition. Patient was counseled about treatment plan, medications, possible side effects, patientverbalized understanding. All questions were answered to the best of my ability. This discharge took greater then 30 minutes in planning, reviewing documentation, counseling the patient, and discussing with other team members." ASSESSMENT ASSESSMENT Assessment Date of Service: Nov 07, 2024 Billing Provider: EDGARDO SILVERIO MD Common Visit Codes: [id number]/OBS DISCH DAY >30min EDGARDO SILVERIO MD Nov 07, 2024 18:44
== END 2024-11-07 12:44 | disposition home or self-care (01) | DRG 420 ==
LOC: ER 22:02 → TELE 11-06 07:10 → ER 11-06 07:45
PROVIDERS: ATTEND Hospitalist
DX: E11.10 Type 2 diabetes mellitus with ketoacidosis without coma (principal); F17.210 Nicotine dependence, cigarettes, uncomplicated; F32.A Depression, unspecified; F41.9 Anxiety disorder, unspecified; Z59.00 Homelessness unspecified; Z91.148 Patient's other noncompliance with medication regimen for other reason; Z88.0 Allergy status to penicillin; Z83.3 Family history of diabetes mellitus; Z79.4 Long term (current) use of insulin
CPT/HCPCS: 36415; 36600; 71045; 80048; 80053; 81001; 82010; 82805; 82962; 83036; 83605; 83735; 83880; 83930; 84100; 85025; 87081; G0378; J1815; J2405

== ENCOUNTER 2024-11-12 21:16 | Emergency (ER) | payer MEDICAID ==
[~2024-11-12] VITALS: Ht 177.8 cm; Wt 64.4 kg
--- NOTE | 2024-11-12 21:51 | ED.PDOC ---
History of present illness HPI Comments 29-year-old male who came to ER for hyperglycemia. Patient is homeless, does have history of alcohol and methamphetamine abuse. Seen and admitted here multiple times diabetic ketoacidosis. He has very poor compliance to his medications. Was just admitted last week for DKA again. States for the past 2 days he has been feeling weak, with throat pain, cough, abdominal pain and multiple episodes of nausea and vomiting. Blood sugar upon arrival was 390. Chief Complaint: Hyperglycemia Time Seen by MD: 21:50 Primary Care Provider: NONE History of present illness: Nurses Notes Allergies: Coded Allergies: Penicillin G (Verified Allergy, Unknown, 07/01/22) Penicillins (Unverified Allergy, Unknown, 07/01/22) Piperacillin (Verified Allergy, Unknown, 10/23/23) Tazobactam (Verified Allergy, Unknown, 10/23/23) Home Meds Active Scripts Oseltamivir Phosphate (Tamiflu) 75 Mg Cap, 1 CAP PO BID for 5 Days, #10 CAP Prov:SANDIP ALEGRIA MD 11/13/24 Insulin Glargine (Lantus Solostar) 100 Unit/Ml Inj, 30 UNITS SC BID for 30 Days, #1 INJ 5 Refills Prov:EDGARDO SILVERIO MD 11/07/24 Insulin Regular (Human) (Novolin R) 100 Unit/Ml Inj, 10 UNITS SC ACHS for 30 Days, #3 UNITS 5 Refills Prov:EDGARDO SILVERIO MD 11/07/24 Insulin Syringes (Disposable) (Bd Insulin Syringe Luer-L) 1 Ml Mis, ML XX 6XD, #120 3 Refills Prov:EDGARDO SILVERIO MD 11/07/24 Insulin Syringe/Needle U-100 (ADVOCATE INSULIN SYRINGE/) 0.5 Mg/31 G Mis, APPLIC XX, #100 Use as directed Prov:EDGARDO SILVERIO MD 11/07/24 Insulin Syringe/Needle U-100 (ADVOCATE INSULIN SYRINGE/) 1 Ml/31 G Mis, ML XX TID PRN, #100 3 Refills use for insulin administration Prov:EDGARDO SILVERIO MD 11/07/24 Blood Glucose Monitoring Suppl (D-Care Glucometer Kit/Glu W/Device) 1 Kit Kit, KIT SC 5XD PRN, #1 1 Refill please check serum glucose before each meal. Prov:EDGARDO SILVERIO MD 11/07/24 Information Source: Patient Mode of Arrival: Ambulatory Timing: Days Duration: Since onset Prehospital treatment: None [place]: Shaky, Sweaty Symptoms: Anxious, Shaky, Sweaty History of: Diabetes, Insulin use, Frequent hyperglycemic Associated signs and symptoms: Abdominal Pain, Nausea, Vomiting Past Medical History PAST MEDICAL HISTORY: Anxiety, Depression, DM, [place] Past Medical History (Other): Diabetic ketoacidosis Surgical History: Denies all surgeries Family History Family History: Reviewed,noncontributory to illness, Family hx of DM Social History Smoker: Cigarettes Alcohol: Heavy Drugs: Methamphetamine Lives In: Homeless Constitutional: reports: weakness; denies: chills, diaphoresis, fatigue, fever, malaise, sweats, others EENTM: reports: throat pain; denies: blurred vision, double vision, ear bleeding, ear discharge, ear drainage, ear pain, ear ringing, eye pain, eye redness, hearing loss, mouth pain, mouth swelling, nasal discharge, nose bleeding, nose congestion, nose pain, photophobia, tearing, throat swelling, voice changes, others Respiratory: reports: cough; denies: hemoptysis, orthopnea, SOB at rest, shortness of breath, SOB with excertion, stridor, wheezing, others Cardiovascular: denies: chest pain, dizzy spells, diaphoresis, Dyspnea on exertion, edema, irregular heart beat, left arm pain, lightheadedness, palpitations, PND, syncope, others Gastrointestinal: reports: abdominal pain, nausea, vomiting; denies: abdomen distended, blood streaked bowels, constipated, diarrhea, dysphagia, difficulty swallowing, hematemesis, melena, poor appetite, poor fluid intake, rectal bleeding, rectal pain, others Genitourinary: denies: burning, dysuria, flank pain, frequency, hematuria, incontinence, penile discharge, penile sore, pain, testicle pain, testicle swelling, urgency, others Neurological: denies: dizziness, fainting, headache, left sided numbness, left sided weakness, numbness, paresthesia, pre-existing deficit, right sided n umbness, right sided weakness, seizure, speech problems, tingling, tremors, weakness, others Musculoskeletal: denies: back pain, gout, joint pain, joint swelling, muscle pain, muscle stiffness, neck pain, others Integumetry: denies: bruises, change in color, change in hair/nails, dryness, laceration, lesions, lumps, rash, wounds, others Allergic/Immunocompromised: denies: Difficulty Healing, Frequent Infections, Hives, Itching, others Hematologic/Lymphatic: denies: anemia, blood clots, easy bleeding, easy bruising, swollen glands, others Endocrine: denies: excessive hunger, excessive sweating, excessive thirst, excessive urination, flushing, intolerance to cold, intolerance to heat, unexplained weight gain, unexplained weight loss, others Psychiatric: denies: anxiety, bipolar disorder, depression, hopeless, panic disorder, schizophrenia, sleepless, suicidal, others Physical Exam General Appearance: No Apparent Distress, Normal HEENT: Normal ENT Inspection, Pharynx Normal, TMs Normal Neck: Full Range of Motion, Non-Tender, Normal, Normal Inspection Respiratory: Chest Non-Tender, Lungs Clear, No Accessory Muscle Use, No Respiratory Distress, Normal Breath Sounds Cardiovascular: No Edema, No JVD, No Murmur, No Gallop, Normal Peripheral Pulses, Regular Rate/Rhythm Breast Exam: Deferred Gastrointestinal: No Organomegaly, Non Tender, No Pulsatile Mass, Normal Bowel Sounds, Soft Genitalia: Deferred Pelvic: Deferred Rectal: Deferred Extremities: No calf tenderness, Normal capillary refill, Normal inspection, Normal range of motion, Non-tender, No pedal edema Musculoskeletal : Apperance: Normal 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 Was a procedure done?: No Differential Diagnosis (DM) Differential Diagnosis: DKA, Electrolyte Abnormality, Gastritis, Ga stroenteritis, Hyperglycemia, Other (Alcohol and methamphetamine abuse) X-Ray, Labs, Meds, VS Vital Signs Date Time Temp Pulse Resp B/P (MAP) Pulse Ox O2 Delivery O2 Flow Rate FiO2 11/13/24 01:52 98.0 96 16 130/72 (91) 98 98.0 11/12/24 23:03 95 18 132/87 (102) 100 11/12/24 23:03 95 18 100 Room Air* 0 21 12/21/24 21:28 98.1 115 20 117/82 (94) 97 Lab Test 11/12/24 23:21 11/12/24 23:19 11/12/24 22:54 11/12/24 22:47 Range/Units Urine Color Light-yellow Yellow Urine Clarity Clear Clear Urine pH 5.5 5.0-9.0 Urine Specific [place] 1.031 1.001-1.035 Urine Protein Trace H Negative Urine Ketones 4+ H Negative Urine Blood Negative Negative /uL Urine Nitrite Negative Negative Urine Bilirubin Negative Negative Urine Urobilinogen Normal Negative mg/dL Urine Leukocyte Esterase Negative Negative /uL Urine RBC 1 0 - 3 /hpf Urine WBC <1 0 - 3 /hpf Urine Squamous Epithelial Cells Few <5 /hpf Urine Bacteria None seen None Seen /hpf Urine Glucose 4+ H Normal mg/dL Sodium Level 138 136-145 mmol/L Potassium Level 3.9 3.5-5.1 mmol/L Chloride Level 93 #L 98-107 mmol/L Carbon Dioxide Level 23 20-31 mmol/L Anion Gap 22 H 5-15 Blood Urea Nitrogen 10 9-23 mg/dL Creatinine 0.86 0.700-1.30 mg/dL Glomerular Filtration Rate Calc 119 >90 mL/min BUN/Creatinine Ratio 11.6 10.0-20.0 Serum Glucose 299 #H 74-106 mg/dL Calcium Level 9.1 8.7-10.4 mg/dL Total Bilirubin 0.3 0.2-1.0 mg/dL Aspartate Amino Transferase (AST) 58 H 13-40 U/L Alanine Aminotransferase (ALT) 68 H 7-40 U/L Alkaline Phosphatase 158 H 46-116 U/L Total Protein 7.5 5.7-8.2 g/dL Albumin 4.7 3.2-4.8 g/dL POC Glucose 361 H 70-106 mg/dl Influenza Type A Antigen Negative Negative Influenza Type B Antigen Positive Negative Group A Streptococcus Rapid Negative Test 11/12/24 22:40 11/12/24 22:11 11/12/24 21:35 Range/Units Blood Gas Specimen Type Venous Blood Gas Sample Site Vbg - n/a Blood Gas Patient Temperature 37.0 Arterial Blood Date Drawn [id number] [place] Test N/a Venous Blood pH 7.382 7.320-7.430 Venous Blood pCO2 at Patient Temp 36.3 L 38.0-54.0 mmHg Venous Blood pO2 at Patient Temp 56.5 H 23.0-48.0 mmHg Venous Blood HCO3 21.1 L 22.0-29.0 mmol/L Venous Blood Base Excess -3.3 L -2.0-3.0 mmol/L Blood Gas Modality Room air FiO2 % 21.0 White Blood Count 6.6 4.4-10.8 10^3/uL Red Blood Count 5.84 4.5-5.90 10^6/uL Hemoglobin 18.4 #H 13.5-17.5 g/dL Hematocrit 54.2 #H 41.0-53.0 % Mean Corpuscular Volume 92.8 80.0-100.0 fL Mean Corpuscular Hemoglobin 31.5 28.0-32.0 pg Mean Corpuscular Hemoglobin Concent 33.9 32.0-36.0 g/dL Red Cell Distribution Width 13.8 11.8-14.3 % Platelet Count 202 140-450 10^3/uL Mean Platelet Volume 8.8 6.9-10.8 fL Neutrophils (%) (Auto) 57.2 37.0-80.0 % Lymphocytes (%) (Auto) 27.4 10.0-50.0 % Monocytes (%) (Auto) 14.7 H 0.0-12.0 % Eosinophils (%) (Auto) 0.3 0.0-7.0 % Basophils (%) (Auto) 0.4 0.0-2.0 % Neutrophils # (Auto) 3.8 1.6-8.6 10 ^3/uL Lymphocytes # (Auto) 1.8 0.4-5.4 10 ^3/uL Monocytes # (Auto) 1.0 0-1.3 10 ^3/uL Eosinophils # (Auto) 0 0-0.8 10 ^3/uL Basophils # (Auto) 0 0-0.2 10 ^3/uL Nucleated Red Blood Cells 0.4 % POC Glucose 390 H 70-106 mg/dl Current Medications Medications (Trade) Dose Ordered Sig/Toño Route Start Time Stop Time Status Last Admin Sodium Chloride 1,000 ml @ 1,000 mls/hr Q1H ONCE IVB 11/12/24 21:45 11/12/24 22:44 DC 11/12/24 22:57 Insulin Human Regular (InsuLIN R) 6 units ONCE ONCE IV 11/12/24 21:45 11/12/24 21:46 DC 11/12/24 23:00 Ondansetron HCl (Zofran) 8 mg ONCE ONCE IV 11/12/24 23:30 11/12/24 23:31 DC 11/12/24 23:24 EXAM: XY CHEST PORTABLE TECHNIQUE: Single frontal chest radiograph CLINICAL HISTORY: cough / chest pain COMPARISON: XY CHEST PORTABLE on DOS: 11/05/24, XY CHEST PORTABLE on DOS: 08/04/24, XY CHEST PORTABLE on DOS: 06/27/24 Findings/Impression: Frontal chest radiograph demonstrates no acute osseous or superficial soft tissue abnormalities. The trachea is midline. The cardiac silhouette and mediastinum are within normal limits. No pneumothorax, pleural effusions, or consolidations. Time of 1ST Reevaluation: 21:47 Reevaluation 1ST: Unchanged Time of 2ND Reevaluation: 23:00 Patient Education/Counseling: Diagnosis, Treatment Family Education/Counseling: No Family Present Departure 1 Departure Time of Disposition: 23:00 (I personally reviewed and interpreted the lab and imaging studies. I reviewed the results with the patient and using shared decision making we decided on outpatient management with closed outpatient follow up. I did notify the patient that there was a risk that their condition could worsen and they agreed to immediately return to the Emergency Department for any worsening symptoms or concerns. ) Impression: Primary Impression: Type 1 diabetes mellitus with hyperglycemia Additional Impression: Influenza B Disposition: 01 HOME / SELF CARE / HOMELESS Condition: Stable e-Prescriptions Oseltamivir Phosphate (Tamiflu) 75 Mg Cap 1 CAP PO BID for 5 Days, #10 CAP Prov: SANDIP ALEGRIA MD 11/13/24 Discharged With: Self Critical Care Note Critical Care Time?: Yes (35 min-critical care time only) Critical care comment: Hyperglycemia Stability Stability form required: No Heart Score Heart Score: Heart Score Response (Comments) Value History N/A 0 EKG N/A 0 Age N/A 0 Risk Factors N/A 0 Troponin N/A 0 Total 0 I personally scribed for SANDIP ALEGRIA MD ([email or web address]) on 11/12/24 at 21:51. Electronically submitted by Ilir Emery ([email or web address]). I personally scribed for SANDIP ALEGRIA MD ([email or web address]) on 11/12/24 at 22:17. Electronically submitted by Ilir Emery ([email or web address]). SANDIP ALEGRIA MD Nov 12, 2024 21:51
--- NOTE | 2024-11-12 21:59 | DVH ---
EXAM: XY CHEST PORTABLE TECHNIQUE: Single frontal chest radiograph CLINICAL HISTORY: cough / chest pain COMPARISON: XY CHEST PORTABLE on DOS: 11/05/24, XY CHEST PORTABLE on DOS: 08/04/24, XY CHEST PORTABLE on DOS: 06/27/24 Findings/Impression: Frontal chest radiograph demonstrates no acute osseous or superficial soft tissue abnormalities. The trachea is midline. The cardiac silhouette and mediastinum are within normal limits. No pneumothorax, pleural effusions, or consolidations.
[2024-11-12 22:18] LABS: Basophils # (auto) 0 10 ^3/uL (0-0.2); Basophils % (auto) 0.4 % (0.0-2.0); Eosinophils # (auto) 0 10 ^3/uL (0-0.8); Eosinophils % (auto) 0.3 % (0.0-7.0); Hematocrit 54.2 % (41.0-53.0); Hemoglobin 18.4 g/dL (13.5-17.5); Lymphocytes # (auto) 1.8 10 ^3/uL (0.4-5.4); Lymphocytes % (auto) 27.4 % (10.0-50.0); Mean Corpuscular Hemoglobin 31.5 pg (28.0-32.0); Mean Corpuscular Hgb Conc. 33.9 g/dL (32.0-36.0); Mean Corpuscular Volume 92.8 fL (80.0-100.0); Monocytes % (auto) 14.7 % (0.0-12.0); Neutrophils # (auto) 3.8 10 ^3/uL (1.6-8.6); Neutrophils % (auto) 57.2 % (37.0-80.0); Nucleated Red Blood Cells % 0.4 %; Platelet Count (auto) 202 10^3/uL (140-450); Red Blood Cells 5.84 10^6/uL (4.5-5.90); Red Cell Distribution Width 13.8 % (11.8-14.3); White Blood Cell 6.6 10^3/uL (4.4-10.8)
[2024-11-12] MEDS: SODIUM CHLORIDE 0.9% 1,000 ML IVB ONE (22:57)
[2024-11-12] MEDS: InsuLIN REG 1unit/0.01ml Soln (100units/ml) IV ONE (23:00)
[2024-11-12 23:03] VITALS: PULSE 95; RESP 18; O2SAT 100
[2024-11-12] MEDS ORDERED: ONDANSETRON HCL 4 MG/2 ML VIAL IV ONE (23:21)
[2024-11-12] MEDS: ONDANSETRON HCL 4 MG/2 ML VIAL IV ONE (23:24)
[2024-11-12 23:28] LABS: Rapid Strep A Screen-Throat Negative
[2024-11-12 23:31] LABS: Rapid Influenza A Negative (Negative)
[2024-11-12 23:32] LABS: Rapid Influenza B Positive (Negative)
[2024-11-12 23:40] LABS: Albumin 4.7 g/dL (3.2-4.8); Anion Gap 22 (5-15); BUN/Creatinine Ratio 11.6 (10.0-20.0); Bilirubin, Total 0.3 mg/dL (0.2-1.0); Blood Urea Nitrogen 10 mg/dL (9-23); Calcium 9.1 mg/dL (8.7-10.4); Carbon Dioxide 23 mmol/L (20-31); Potassium 3.9 mmol/L (3.5-5.1); Sodium 138 mmol/L (136-145)
[2024-11-12 23:41] LABS: Alanine Aminotransferase 68 U/L (7-40); Alkaline Phosphatase 158 U/L (46-116); Aspartate Aminotransferase 58 U/L (13-40); Chloride 93 mmol/L (98-107); Glucose 299 mg/dL (74-106); Total Protein 7.5 g/dL (5.7-8.2)
[2024-11-12 23:43] LABS: Urine Bacteria None Seen /hpf (None Seen)
[2024-11-12 23:50] LABS: Urine Blood Negative /uL (Negative); Urine Clarity Clear (Clear); Urine Color Light-Yellow (Yellow); Urine Protein, UAD TRACE (Negative); Urine Specific Gravity 1.031 (1.001-1.035); Urine Urobilinogen Normal (Negative); Urine WBC <1 /hpf (0 - 3); Urine pH 5.5 (5.0-9.0)
[2024-11-13] MEDS ORDERED: OSEL75CA5 PO (00:20)
[2024-11-13 01:52] VITALS: BP 130/72; PULSE 96; RESP 16; TEMP 98; O2SAT 98
== END 2024-11-13 01:50 | disposition home or self-care (01) ==
LOC: ER 21:21
DX: E10.65 Type 1 diabetes mellitus with hyperglycemia (principal); J10.1 Influenza due to other identified influenza virus with other respiratory manifestations; F17.210 Nicotine dependence, cigarettes, uncomplicated; F15.10 Other stimulant abuse, uncomplicated; I25.2 Old myocardial infarction; Z59.00 Homelessness unspecified; Z79.4 Long term (current) use of insulin; Z88.0 Allergy status to penicillin; Z91.148 Patient's other noncompliance with medication regimen for other reason
CPT/HCPCS: 36415; 36600; 71045; 80053; 81001; 82805; 82962; 85025; 87070; 87077; 87804; 87880; 96361; 96374; 96375; 99284; J1815; J2405; J7030

== ENCOUNTER 2024-11-13 17:53 | Inpatient (IN) | payer MEDICAID ==
[~2024-11-13] VITALS: Ht 177.8 cm; Wt 64.0 kg
[~2024-11-13 17:53] MED LIST changes: +OSEL75CA5 PO
--- NOTE | 2024-11-13 18:39 | ED.PDOC ---
History of Present Illness HPI Comments 29-year-old male who came to ER for nausea and vomiting. Patient is homeless, does have history of alcohol and methamphetamine abuse. Seen and admitted here multiple times for diabetic ketoacidosis. He has very poor compliance to his medications. Was just admitted last week for DKA again. Was seen here yesterday for flu-like symptoms. States for the past 2 days he has been feeling weak, with throat pain, cough, abdominal pain and multiple episodes of nausea and vomiting. Blood sugar was 432 per EMS. Chief Complaint: Hyperglycemia Time Seen by MD: 18:34 Primary Care Provider: NONE Reviewed Notes: Medications, Allergies Allergies: Coded Allergies: Penicillin G (Verified Allergy, Unknown, 07/01/22) Penicillins (Unverified Allergy, Unknown, 07/01/22) Piperacillin (Verified Allergy, Unknown, 10/23/23) Tazobactam (Verified Allergy, Unknown, 10/23/23) Home Meds Active Scripts Oseltamivir Phosphate (Tamiflu) 75 Mg Cap, 1 CAP PO BID for 5 Days, #10 CAP Prov:SANDIP ALEGRIA MD 11/13/24 Insulin Glargine (Lantus Solostar) 100 Unit/Ml Inj, 30 UNITS SC BID for 30 Days, #1 INJ 5 Refills Prov:EDGARDO SILVERIO MD 11/07/24 Insulin Regular (Human) (Novolin R) 100 Unit/Ml Inj, 10 UNITS SC ACHS for 30 Days, #3 UNITS 5 Refills Prov:EDGARDO SILVERIO MD 11/07/24 Insulin Syringes (Disposable) (Bd Insulin Syringe Luer-L) 1 Ml Mis, ML XX 6XD, #120 3 Refills Prov:EDGARDO SILVERIO MD 11/07/24 Insulin Syringe/Needle U-100 (ADVOCATE INSULIN SYRINGE/) 0.5 Mg/31 G Mis, APPLIC XX, #100 Use as directed Prov:EDGARDO SILVERIO MD 11/07/24 Insulin Syringe/Needle U-100 (ADVOCATE INSULIN SYRINGE/) 1 Ml/31 G Mis, ML XX TID PRN, #100 3 Refills use for insulin administration Prov:EDGARDO SILVERIO MD 11/07/24 Blood Glucose Monitoring Suppl (D-Care Glucometer Kit/Glu W/Device) 1 Kit Kit, KIT SC 5XD PRN, #1 1 Refill please check serum glucose before each meal. Prov:EDGARDO SILVERIO MD 11/07/24 Information Source: Patient Mode of Arrival: EMS Severity: Moderate Timing: Minutes Duration: Since onset Prehospital treatment: None Past Medical History PAST MEDICAL HISTORY: Anxiety, Depression, DM, [place] Surgical History: Denies all surgeries Family History Family History: Reviewed,noncontributory to illness, Family hx of DM Social History Smoker: Cigarettes Alcohol: Heavy Drugs: Methamphetamine Lives In: Homeless Constitutional: denies: chills, diaphoresis, fatigue, fever, malaise, sweats, weakness, others EENTM: denies: blurred vision, double vision, ear bleeding, ear discharge, ear drainage, ear pain, ear ringing, eye pain, eye redness, hearing loss, mouth pain, mouth swelling, nasal discharge, nose bleeding, nose congestion, nose pain, photophobia, tearing, throat pain, throat swelling, voice changes, others Respiratory: denies: cough, hemoptysis, orthopnea, SOB at rest, shortness of breath, SOB with excertion, stridor, wheezing, others Cardiovascular: denies: chest pain, dizzy spells, diaphoresis, Dyspnea on exertion, edema, irregular heart beat, left arm pain, lightheadedness, palpitations, PND, syncope, others Gastrointestinal: reports: nausea, vomiting; denies: abdomen distended, abdominal pain, blood streaked bowels, constipated, diarrhea, dysphagia, difficulty swallowing, hematemesis, melena, poor appetite, poor fluid intake, rectal bleeding, rectal pain, others Genitourinary: denies: burning, dysuria, flank pain, frequency, hematuria, incontinence, penile discharge, penile sore, pain, testicle pain, testicle swelling, urgency, others Neurological: denies: dizziness, fainting, headache, left sided numbness, left sided weakness, numbness, paresthesia, pre-existing deficit, right sided numbness, right sided weakness, seizure, speech problems, tingling, tremors, weakness, others Musculoskeletal: denies: back pain, gout, joint pain, joint swelling, muscle pain, muscle stiffness, neck pain, others Integumetry: denies: bruises, change in color, change in hair/nails, dryness, laceration, lesions, lumps, rash, wounds, others Allergic/Immunocompromised: denies: Difficulty Healing, Frequent Infections, Hives, Itching, others Hematologic/Lymphatic: denies: anemia, blood clots, easy bleeding, easy bruising, swollen glands, others Endocrine: denies: excessive hunger, excessive sweating, excessive thirst, excessive urination, flushing, intolerance to cold, intolerance to heat, unexplained weight gain, unexplained weight loss, others Psychiatric: denies: anxiety, bipolar disorder, depression, hopeless, panic disorder, schizophrenia, sleepless, suicidal, others All Other Systems: Reviewed and Negative Physical Exam General Appearance: No Apparent Distress, Normal HEENT: Normal ENT Inspection, Pharynx Normal, TMs Normal Neck: Full Range of Motion, Non-Tender, Normal, Normal Inspection Respiratory: Chest Non-Tender, Lungs Clear, No Accessory Muscle Use, No Respiratory Distress, Normal Breath Sounds Cardiovascular: No Edema, No JVD, No Murmur, No Gallop, Normal Peripheral Pulses, Regular Rate/Rhythm Breast Exam: Deferred Gastrointestinal: No Organomegaly, Non Tender, No Pulsatile Mass, Normal Bowel Sounds, Soft Genitalia: Deferred Pelvic: Deferred Rectal: Deferred Extremities: No calf tenderness, Normal capillary refill, Normal inspection, Normal range of motion, Non-tender, No pedal edema Musculoskeletal : Apperance: Normal Neurologic: 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 Was a procedure done?: No Differential Dx Considerations may include: DKA, uncontrolled diabetes, flu X-Ray, Labs, Meds, VS Vital Signs Date Time Temp Pulse Resp B/P (MAP) Pulse Ox O2 Delivery O2 Flow Rate FiO2 11/13/24 21:39 80 17 102/63 (76) 96 11/13/24 20:30 17 Room Air* 0 21 11/13/24 17:58 98.4 76 16 135/88 (104) 96 Lab Test 11/13/24 21:15 11/13/24 18:45 Range/Units POC Glucose 428 *H 70-106 mg/dl White Blood Count 4.5 # 4.4-10.8 10^3/uL Red Blood Count 5.29 4.5-5.90 10^6/uL Hemoglobin 16.7 13.5-17.5 g/dL Hematocrit 50.0 41.0-53.0 % Mean Corpuscular Volume 94.6 80.0-100.0 fL Mean Corpuscular Hemoglobin 31.5 28.0-32.0 pg Mean Corpuscular Hemoglobin Concent 33.3 32.0-36.0 g/dL Red Cell Distribution Width 13.7 11.8-14.3 % Platelet Count 154 140-450 10^3/uL Mean Platelet Volume 8.2 6.9-10.8 fL Neutrophils (%) (Auto) 47.5 37.0-80.0 % Lymphocytes (%) (Auto) 37.2 10.0-50.0 % Monocytes (%) (Auto) 14.3 H 0.0-12.0 % Eosinophils (%) (Auto) 0.7 0.0-7.0 % Basophils (%) (Auto) 0.3 0.0-2.0 % Neutrophils # (Auto) 2.2 1.6-8.6 10 ^3/uL Lymphocytes # (Auto) 1.7 0.4-5.4 10 ^3/uL Monocytes # (Auto) 0.6 0-1.3 10 ^3/uL Eosinophils # (Auto) 0 0-0.8 10 ^3/uL Basophils # (Auto) 0 0-0.2 10 ^3/uL Nucleated Red Blood Cells 0.1 % Sodium Level 130 #L 136-145 mmol/L Potassium Level 4.5 3.5-5.1 mmol/L Chloride Level 92 L 98-107 mmol/L Carbon Dioxide Level 19 L 20-31 mmol/L Anion Gap 19 H 5-15 Blood Urea Nitrogen 12 9-23 mg/dL Creatinine 0.94 0.700-1.30 mg/dL Glomerular Filtration Rate Calc 112 >90 mL/min BUN/Creatinine Ratio 12.8 10.0-20.0 Serum Glucose 408 #*H 74-106 mg/dL Calcium Level 9.4 8.7-10.4 mg/dL Current Medications Medications (Trade) Dose Ordered Sig/Toño Route Start Time Stop Time Status Last Admin Sodium Chloride 1,000 ml @ 1,000 mls/hr Q1H ONCE IV 11/13/24 19:00 12/22/24 19:59 DC 11/13/24 21:28 Ondansetron HCl (Zofran) 4 mg ONCE ONCE IV 11/13/24 19:00 11/13/24 19:12 DC 11/13/24 21:28 Famotidine (Pepcid Tablet) 20 mg ONCE ONCE PO 11/13/24 19:00 11/13/24 19:12 DC 11/13/24 21:28 Time of 1ST Reevaluation: 19:04 Reevaluation 1ST: Unchanged Patient Education/Counseling: Diagnosis, Treatment, Prognosis Family Education/Counseling: No Family Present Departure 1 Departure Time of Disposition: 22:26 (Patient with a uncontrolled diabetes. We will give patient insulin fluids and admit patient in the setting flu) Impression: Primary Impression: Uncontrolled diabetes mellitus Qualified Codes: E11.65 - Type 2 diabetes mellitus with hyperglycemia Additional Impression: Influenza B Disposition: 09 ADMITTED INPATIENT Admit to: Med Surg Condition: Serious Critical Care Note Critical Care Time?: Yes Critical care comment: Concern for DKA Authorized and Performed by: Dhaval Sanchez MD Total critical care time: Approximately 41 minutes Due to a high probability of clinically significant, life threatening deterioration, the patient required my highest level of preparedness to intervene emergently and I personally spent this critical care time directly and personally managing the patient. This critical care time included obtaining a history; examining the patient; pulse oximetry; ordering and review of studies; arranging urgent treatment with development of a management plan; evaluation of patient's response to treatment; frequent reassessment; and, discussions with other providers. This critical care time was performed to assess and manage the high probability of imminent, life-threatening deterioration that could result in multi-organ failure. It was exclusive of separately billable procedures and treating other patients and teaching time. Please see my other sections and the rest of the note for further information on patient assessment and treatment. Stability Stability form required: No I personally scribed for DHAVAL SANCHEZ MD ([email or web address]) on 11/13/24 at 18:39. Electronically submitted by Jevon Muse ([email or web address]). I personally scribed for DHAVAL SANCHEZ MD ([email or web address]) on 11/13/24 at 18:40. Electronically submitted by Jevon Muse ([email or web address]). DHAVAL SANCHEZ MD Nov 13, 2024 18:39
[2024-11-13 18:57] LABS: Basophils # (auto) 0 10 ^3/uL (0-0.2); Basophils % (auto) 0.3 % (0.0-2.0); Eosinophils # (auto) 0 10 ^3/uL (0-0.8); Eosinophils % (auto) 0.7 % (0.0-7.0); Hemoglobin 16.7 g/dL (13.5-17.5); Lymphocytes # (auto) 1.7 10 ^3/uL (0.4-5.4); Lymphocytes % (auto) 37.2 % (10.0-50.0); Mean Corpuscular Hemoglobin 31.5 pg (28.0-32.0); Mean Corpuscular Hgb Conc. 33.3 g/dL (32.0-36.0); Mean Corpuscular Volume 94.6 fL (80.0-100.0); Monocytes # (auto) 0.6 10 ^3/uL (0-1.3); Monocytes % (auto) 14.3 % (0.0-12.0); Neutrophils # (auto) 2.2 10 ^3/uL (1.6-8.6); Neutrophils % (auto) 47.5 % (37.0-80.0); Nucleated Red Blood Cells % 0.1 %; Platelet Count (auto) 154 10^3/uL (140-450); Red Blood Cells 5.29 10^6/uL (4.5-5.90); Red Cell Distribution Width 13.7 % (11.8-14.3); White Blood Cell 4.5 10^3/uL (4.4-10.8)
[2024-11-13 19:08] LABS: Potassium 4.5 mmol/L (3.5-5.1)
[2024-11-13 19:09] LABS: Anion Gap 19 (5-15)
[2024-11-13 19:10] LABS: Calcium 9.4 mg/dL (8.7-10.4)
[2024-11-13 19:15] LABS: BUN/Creatinine Ratio 12.8 (10.0-20.0); Blood Urea Nitrogen 12 mg/dL (9-23)
[2024-11-13 20:01] LABS: Carbon Dioxide 19 mmol/L (20-31); Chloride 92 mmol/L (98-107); Sodium 130 mmol/L (136-145)
[2024-11-13 20:02] LABS: Glucose 408 mg/dL (74-106)
[2024-11-13 20:30] VITALS: RESP 17
[2024-11-13] MEDS: SODIUM CHLORIDE 0.9% 1,000 ML IV ONE ×2 (21:28→22:52)
[2024-11-13] MEDS: ONDANSETRON HCL 4 MG/2 ML VIAL IV ONE (21:28)
[2024-11-13] MEDS: FAMOTIDINE 20 MG TAB PO ONE (21:28)
[2024-11-13] MEDS: InsuLIN REG 1unit/0.01ml Soln (100units/ml) IV ONE (23:00)
[2024-11-13 23:18] LABS: Urine Bacteria None Seen /hpf (None Seen)
[2024-11-13 23:27] LABS: Urine Blood Negative /uL (Negative); Urine Clarity Clear (Clear); Urine Color Light-Yellow (Yellow); Urine Protein, UAD Negative (Negative); Urine Specific Gravity 1.035 (1.001-1.035); Urine Squamous Epithelial Cell FEW /hpf (<5); Urine Urobilinogen Normal (Negative); Urine WBC 1 /hpf (0 - 3); Urine pH 5.5 (5.0-9.0)
[2024-11-13] MEDS ORDERED: DEXTROSE (50%) 50ML SYRG IV PRN (23:30)
[2024-11-13 23:46] LABS: Amphetamine Screen, Urine Pos (NEGATIVE)
[2024-11-13] MEDS: INSULIN DRIP 100 UNIT/100ML 100 ML IV SCH (23:46)
[2024-11-13 23:49] LABS: Barbiturate Scree,Urine Neg (NEGATIVE); Benzodiazephine Screen, Urine Neg (NEGATIVE); Cannabinoid Screen, Urine Neg (NEGATIVE); Cocaine Screen, Urine Neg (NEGATIVE); Opiate Scree,Urine Neg (NEGATIVE); Phencyclidine Screen, Urine Neg (NEGATIVE)
[2024-11-14] MEDS: ACCU-CHEK COMFORT CURVE STRIP VI SCH ×3 (00:02→17:00)
--- NOTE | 2024-11-14 00:08 | DVHHPRES ---
History of Present Illness Resident Creating Document: GERALDNicoleELVAHECTORHAILY RESIDENT History of Present Illness Patient is a 29-year-old male with a past medical history of type 1 diabetes mellitus( diagnosed at age 20) came to ED with a chief complaint of multiple episodes of vomiting for the past 2 days. Patient reports that he has not been taking his insulin and has been to the hospital in the recent months multiple times and has been diagnosed with uncontrolled diabetes and diabetic ketoacidosis. Patient reports that since the last 2 days he has been having multiple episodes of vomiting associated with mild epigastric abdominal pain and has palpitations since then. denies diarrhoea, chest pain, shortness of breath, headache, dysuria. Patient reports to be living on the streets since the last 2 months. Past Medical History Type 1 diabetes mellitus Past Surgical History None Family History None Past Social History Patient drinks alcohol 3 packs almost every day, denies smoking, drug use Review of Systems Review of Systems Patient was seen and examined with the bedside Reports mild 4/10 on intensity epigastric pain Reports that his last vomiting was today in the evening before the EMS picked him up around 4:00 p.m. Denies current nausea, chest pain, shortness of breath, diarrhea Allergies: Coded Allergies: Penicillin G (Verified Allergy, Unknown, 07/01/22) Penicillins (Unverified Allergy, Unknown, 07/01/22) Piperacillin (Verified Allergy, Unknown, 10/23/23) Tazobactam (Verified Allergy, Unknown, 10/23/23) Medications Current Medications Medications Dose Ordered Sig/Toño Route Start Time Stop Time Status Last Admin Dose Admin Sodium Chloride 1,000 ml @ 150 mls/hr [id number] IV 11/14/24 05:30 UNV Exam Vital Signs Vital Signs Date Time Temp Pulse Resp B/P (MAP) Pulse Ox O2 Delivery O2 Flow Rate FiO2 11/13/24 23:10 71 9 99/43 (61) 96 11/13/24 20:30 Room Air* 0 21 11/13/24 17:58 98.4 Exam Physical Examination Constitutional: Patient was alert and oriented to time, place and person, poor hygiene Gen - no pallor, no icterus, no cyanosis, no clubbing, no LAD, no edema . Skin - Patients skin is warm and dry, face is flushed red HEENT - normocephalic, atraumatic, dry mucous membranes. Neck - full ROM, no LAD, no JVD Pulmonary - B/L vesicular breath sounds. no crackles , no wheezing cardiovascular - normal S1,S2 heard. no murmurs heard. peripheral pulses radial 2+, pedal 2+. capillary refill normal <2 secs. GI - soft abdomen with mild tenderness to palpation in the epigastrium. no hepatospleenomegaly. Bowel sounds normoactive Extremities:. Bilateral upper extremity strength 5/5, bilateral lower extremity strength 5/5. No wounds in the feet Neurological: Visual field WNL, extraocular movements WNL, facial sensation and jaw strength normal, no facial droop, normal speech, no tremor, no sensory deficiets. Labs/Xrays Labs Test 11/13/24 23:00 11/13/24 21:30 11/13/24 18:45 Range/Units POC Glucose 379 H 70-106 mg/dl Urine Color Light-yellow Yellow Urine Clarity Clear Clear Urine pH 5.5 5.0-9.0 Urine Specific [place] 1.035 1.001-1.035 Urine Protein Negative Negative Urine Ketones 4+ H Negative Urine Blood Negative Negative /uL Urine Nitrite Negative Negative Urine Bilirubin Negative Negative Urine Urobilinogen Normal Negative mg/dL Urine Leukocyte Esterase Negative Negative /uL Urine RBC <1 0 - 3 /hpf Urine WBC 1 0 - 3 /hpf Urine Squamous Epithelial Cells Few <5 /hpf Urine Bacteria None seen None Seen /hpf Urine Glucose 4+ H Normal mg/dL White Blood Count 4.5 # 4.4-10.8 10^3/uL Red Blood Count 5.29 4.5-5.90 10^6/uL Hemoglobin 16.7 13.5-17.5 g/dL Hematocrit 50.0 41.0-53.0 % Mean Corpuscular Volume 94.6 80.0-100.0 fL Mean Corpuscular Hemoglobin 31.5 28.0-32.0 pg Mean Corpuscular Hemoglobin Concent 33.3 32.0-36.0 g/dL Red Cell Distribution Width 13.7 11.8-14.3 % Platelet Count 154 140-450 10^3/uL Mean Platelet Volume 8.2 6.9-10.8 fL Neutrophils (%) (Auto) 47.5 37.0-80.0 % Lymphocytes (%) (Auto) 37.2 10.0-50.0 % Monocytes (%) (Auto) 14.3 H 0.0-12.0 % Eosinophils (%) (Auto) 0.7 0.0-7.0 % Basophils (%) (Auto) 0.3 0.0-2.0 % Neutrophils # (Auto) 2.2 1.6-8.6 10 ^3/uL Lymphocytes # (Auto) 1.7 0.4-5.4 10 ^3/uL Monocytes # (Auto) 0.6 0-1.3 10 ^3/uL Eosinophils # (Auto) 0 0-0.8 10 ^3/uL Basophils # (Auto) 0 0-0.2 10 ^3/uL Nucleated Red Blood Cells 0.1 % Sodium Level 130 #L 136-145 mmol/L Potassium Level 4.5 3.5-5.1 mmol/L Chloride Level 92 L 98-107 mmol/L Carbon Dioxide Level 19 L 20-31 mmol/L Anion Gap 19 H 5-15 Blood Urea Nitrogen 12 9-23 mg/dL Creatinine 0.94 0.700-1.30 mg/dL Glomerular Filtration Rate Calc 112 >90 mL/min BUN/Creatinine Ratio 12.8 10.0-20.0 Serum Glucose 408 #*H 74-106 mg/dL Calcium Level 9.4 8.7-10.4 mg/dL Assessment/Plan Assessment/Plan # Acute anion gap metabolic acidosis with respiratory compensation # Diabetic ketoacidosis # Uncontrolled type 2 diabetes mellitus - ABG shows pH 7.325, HCO3- 15.6, pCO2 30.7 - serum bicarb 19 - anion gap 19 - beta hydroxybutyrate 3.935 - patient given 2 L NS bolus - IV insulin drip at 0.1 unit/kg per hour - admitted to ICU level of care - IV fluids NS at 150 mL/hour - potassium 4.5, keep potassium between 4-5mmol/L - recent HbA1c 11% # Type B influenza infection - on oseltamivir 75 mg b.i.d. 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 Full code Plan discussed with Dr. Mendes Plan discussed with: Patient My Orders Orders - DIONICIO PATHAK Procedure Category Date Status Time Admit ADMIT 11/13/24 Transmitted 23:18 Data Warehouse Manager For THEO 11/13/24 In Process 24 Hours 23:18 Insulin Drip Protocol THEO 11/13/24 In Process Sodium Chloride 0.9% PHA 11/14/24 In Process 05:30 Insulin Drip 100 PHA 11/13/24 In Process Unit/100ml (Myxredlin 23:30 Dextrose 50% Syringe PHA 11/13/24 In Process 23:30 Glucose Blood PHA 11/14/24 In Process (Accu-Chek Comfort 00:00 Complete Blood Count LAB 11/13/24 Logged 23:18 Basic Metabolic Panel LAB 11/13/24 Logged 23:18 Phosphorus LAB 11/13/24 Logged 23:18 Magnesium LAB 11/13/24 Logged 23:18 Osmolality, Serum LAB 11/13/24 Logged 23:18 Abg W/ Co-Ox RT 11/13/24 Logged 23:18 Basic Metabolic Panel LAB 11/14/24 Verified 05:18 Basic Metabolic Panel LAB 11/14/24 Verified 11:18 Basic Metabolic Panel LAB 11/14/24 Verified 17:18 Neurological THEO 11/13/24 In Process Assessment 23:18 Vs/Hemodynamics HTEO 11/13/24 In Process 23:18 Acetone LAB 11/13/24 Logged 23:18 Drug Screen LAB 11/13/24 In Process 23:24 * Stoneworking Sander CONS 11/13/24 Transmitted Consult Date of Service: Nov 13, 2024 Billing Provider: FLEX MENDES MD Common Visit Codes: [id number] INP/OBS CARE (HIGH) DIONICIO PATHAK RESIDENT Nov 14, 2024 00:08 FLEX MENDSE MD Nov 14, 2024 10:00
[2024-11-14 00:34] LABS: Basophils # (auto) 0 10 ^3/uL (0-0.2); Basophils % (auto) 0.5 % (0.0-2.0); Eosinophils # (auto) 0 10 ^3/uL (0-0.8); Eosinophils % (auto) 0.8 % (0.0-7.0); Hematocrit 41.6 % (41.0-53.0); Hemoglobin 14.3 g/dL (13.5-17.5); Lymphocytes # (auto) 1.6 10 ^3/uL (0.4-5.4); Mean Corpuscular Hemoglobin 31.7 pg (28.0-32.0); Mean Corpuscular Hgb Conc. 34.3 g/dL (32.0-36.0); Mean Corpuscular Volume 92.3 fL (80.0-100.0); Monocytes # (auto) 0.5 10 ^3/uL (0-1.3); Monocytes % (auto) 13.8 % (0.0-12.0); Neutrophils # (auto) 1.7 10 ^3/uL (1.6-8.6); Neutrophils % (auto) 43.9 % (37.0-80.0); Nucleated Red Blood Cells % 0.2 %; Platelet Count (auto) 139 10^3/uL (140-450); Red Cell Distribution Width 13.5 % (11.8-14.3)
[2024-11-14 00:48] LABS: Albumin 3.8 g/dL (3.2-4.8); Anion Gap 13 (5-15); BUN/Creatinine Ratio 13.7 (10.0-20.0); Bilirubin, Total 0.4 mg/dL (0.2-1.0); Blood Urea Nitrogen 10 mg/dL (9-23); Chloride 101 mmol/L (98-107); Magnesium 1.7 mg/dL (1.6-2.6); Potassium 3.6 mmol/L (3.5-5.1)
[2024-11-14] MEDS: OSELTAMIVIR 75 MG CAP PO ONE (00:53)
[2024-11-14 01:03] LABS: Alanine Aminotransferase 61 U/L (7-40); Alkaline Phosphatase 123 U/L (46-116); Aspartate Aminotransferase 55 U/L (13-40); Calcium 8.5 mg/dL (8.7-10.4); Carbon Dioxide 18 mmol/L (20-31); Glucose 273 mg/dL (74-106); Phosphorus 1.6 mg/dL (2.4-5.1); Sodium 132 mmol/L (136-145)
[2024-11-14] MEDS: INSULIN LANTUS (GLARGINE) 1 /0.01ml (100units/ml) SC ONE (03:15)
[2024-11-14] MEDS: D5W/SOD CHLO 0.9% 1,000 ML IV SCH (03:15)
[2024-11-14 04:40] LABS: Chloride 102 mmol/L (98-107)
[2024-11-14 04:41] LABS: Anion Gap 9 (5-15); Carbon Dioxide 24 mmol/L (20-31)
[2024-11-14 04:46] LABS: BUN/Creatinine Ratio 15.2 (10.0-20.0); Blood Urea Nitrogen 10 mg/dL (9-23)
[2024-11-14 05:02] LABS: Calcium 8.6 mg/dL (8.7-10.4); Glucose 174 mg/dL (74-106); Potassium 3.5 mmol/L (3.5-5.1); Sodium 135 mmol/L (136-145)
[2024-11-14] MEDS ORDERED: DEXTROSE (50%) 50ML SYRG IV PRN (05:15)
[2024-11-14] MEDS: SODIUM CHLORIDE 0.9% 1,000 ML IV SCH (05:17)
[2024-11-14] MEDS ORDERED: SODIUM CHLORIDE 0.9% 1,000 ML IV SCH (05:30)
[2024-11-14] MEDS: POTASSIUM CHL 20 Meq TABLET PO ONE (05:37)
[2024-11-14] MEDS: InsuLIN REG 1unit/0.01ml Soln (100units/ml) SC SCH (07:56)
[2024-11-14 09:13] LABS: Chloride 102 mmol/L (98-107); Potassium 4.5 mmol/L (3.5-5.1); Sodium 136 mmol/L (136-145)
[2024-11-14 09:14] LABS: Anion Gap 6 (5-15); Calcium 8.8 mg/dL (8.7-10.4); Carbon Dioxide 28 mmol/L (20-31)
[2024-11-14 09:17] LABS: INR 1.03 (0.9-1.15); Prothrombin Time 10.9 sec (9.3-11.8)
[2024-11-14 09:19] LABS: BUN/Creatinine Ratio 11.4 (10.0-20.0); Blood Urea Nitrogen 10 mg/dL (9-23)
[2024-11-14 09:25] LABS: Glucose 136 mg/dL (74-106)
--- NOTE | 2024-11-14 17:55 | DVHPNRES ---
Progress Note Date Seen: Nov 14, 2024 Resident Creating Document: TIAN RECIO RESIDENT Medical Necessity Reason Pt with a Central, PICC or Fol: No Subjective Review of Systems The patient is a 29-year-old male with a past medical history of type 1 diabetes mellitus, frequently presenting to the hospital with uncontrolled diabetes and diabetic ketoacidosis due to non-compliance with insulin therapy.Patient reports that since the last 2 days he has been having multiple episodes of vomiting associated with mild epigastric abdominal pain and has palpitations since then. denies diarrhea, chest pain, shortness of breath, headache, dysuria. Patient reports to be living on the streets since the last 2 months. He reports no current symptoms, including chest pain, shortness of breath, or abdominal pain. He denies nausea, vomiting, diarrhea, or dysuria at this time. The patient was previously admitted to this hospital several times with the same diagnosis.His most recent HbA1c (measured on 11/06/2024) was 11, reflecting poor long-term glycemic control. Recent ABG showe pH on 7.32 , consistent with metaboolic acidosis with PCO2 on 30.7 and HCO3 in the ABG 15.6 that reflect the the uncompensated metabolic state with elevated Anion Gap on admision 19. His most recent glucose levels was 136 for which the patient was given dextrose IV . The potassium was supplemented as the goal is to keep it >4 to avoid hyokalemia after insulin infusion. The patient is currently on oseltamivir for influenza, as his recent influenza test came back positive. He denies any new symptoms or complaints. Review of systems was unremarkable except for as mentioned in the HPI. Patient reports: Feels better Changes from previous H/P or p: Changes Objective vital signs Vital Sign Date Time Temp Pulse Resp B/P (MAP) Pulse Ox O2 Delivery O2 Flow Rate FiO2 11/14/24 08:02 64 11/14/24 08:00 98.1 12 105/65 (78) 99 98.1 11/14/24 07:41 Room Air* 0 21 Total Intake and Output 11/13/24 11/13/24 11/14/24 15:00 23:00 07:00 Intake Total 1000 ml 1000 ml Balance 1000 ml 1000 ml medications Current Medications Medications Dose Ordered Sig/Toño Route Start Time Stop Time Status Last Admin Dose Admin Oseltamivir Phosphate 75 mg Q12HR PO 11/14/24 10:00 11/19/24 09:59 Insulin Human Regular IQ4HR SC 11/14/24 08:00 Dextrose 50 ml UD PRN IV 11/14/24 05:15 Diagnostic Test (Pha) 1 strip ACHS 11/14/24 11:30 Insulin Glargine 20 units BID@0700,2200 SC 11/14/24 22:00 Examination: GENERAL:Normal, HEENT:Normal, HEENT:Abnormal, LUNGS:Normal, CVS:Normal, ABDOMEN:Normal, MSK:Normal, SKIN:Normal, NEURO:Normal, :Normal laboratory and microbiology Laboratory Tests 11/14/24 08:47 11/14/24 00:18 Test 11/14/24 08:47 Range/Units Serum Glucose 136 H 74-106 mg/dL Problem List/Assessment/Plan Problem List/Assessment/Plan # Acute anion gap metabolic acidosis with respiratory compensation # Diabetic ketoacidosis due to Medication non compliance # Uncontrolled type 2 diabetes mellitus - Lantus 20 units BID - potassium 4.5, keep potassium between 4-5mmol/L - recent HbA1c 11% # Type B influenza infection - on oseltamivir 75 mg b.i.d. 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 amphetamine positive - patient counseled drug use cessation for more than 15 minutes - patient is homeless and social media campaign manager have been consulted #History of alcohol abuse -alcohol abstention counseling Case discussed with Goals of care discussed with the patient for 31 minutes code status:full code Plan discussed with: Patient My Orders My Orders Orders - TIAN RECIO RESIDENT Procedure Category Date Status Time Glucose Blood PHA 11/14/24 In Process (Accu-Chek Comfort 11:30 Insulin Lantus PHA 11/14/24 In Process (Glargine) (Lantus) 22:00 Date of Service: Nov 14, 2024 Billing Provider: ANUJA MELENDEZ MD Common Visit Codes: [id number] INP/OBS CARE(HIGH) ITAN RECIO RESIDENT Nov 14, 2024 17:55 ANUJA MELENDEZ MD Nov 15, 2024 21:03
[2024-11-14] MEDS: OSELTAMIVIR 75 MG CAP PO SCH (21:03)
[2024-11-14 21:10] VITALS: PULSE 67; RESP 16; O2SAT 97
[2024-11-14] MEDS: INSULIN LANTUS (GLARGINE) 1 /0.01ml (100units/ml) SC SCH (22:53)
[2024-11-14 23:15] VITALS: BP 121/82; PULSE 68; RESP 20; TEMP 97.9; O2SAT 96
[2024-11-15 01:00] VITALS: BP 115/77; PULSE 77; RESP 18; TEMP 97.8; O2SAT 97
[2024-11-15] MEDS: PNEUMOCOCCAL VACC POLYS 25 MCG/0.5 ML VIAL IM ONE (03:57)
[2024-11-15 05:00] VITALS: BP 113/70; PULSE 75; RESP 20; TEMP 97.7; O2SAT 97
[2024-11-15 06:39] LABS: Basophils # (auto) 0 10 ^3/uL (0-0.2); Basophils % (auto) 0.4 % (0.0-2.0); Eosinophils # (auto) 0 10 ^3/uL (0-0.8); Hematocrit 45.1 % (41.0-53.0); Hemoglobin 15.7 g/dL (13.5-17.5); Lymphocytes # (auto) 1.3 10 ^3/uL (0.4-5.4); Lymphocytes % (auto) 27.1 % (10.0-50.0); Mean Corpuscular Hemoglobin 31.4 pg (28.0-32.0); Mean Corpuscular Hgb Conc. 34.7 g/dL (32.0-36.0); Mean Corpuscular Volume 90.3 fL (80.0-100.0); Monocytes # (auto) 0.5 10 ^3/uL (0-1.3); Monocytes % (auto) 9.8 % (0.0-12.0); Neutrophils % (auto) 61.7 % (37.0-80.0); Nucleated Red Blood Cells % 0.1 %; Platelet Count (auto) 171 10^3/uL (140-450); Red Cell Distribution Width 13.3 % (11.8-14.3); White Blood Cell 4.9 10^3/uL (4.4-10.8)
[2024-11-15 07:02] LABS: Anion Gap 7 (5-15); Carbon Dioxide 29 mmol/L (20-31); Chloride 100 mmol/L (98-107); Sodium 136 mmol/L (136-145)
[2024-11-15 07:03] LABS: Calcium 9.4 mg/dL (8.7-10.4)
[2024-11-15 07:08] LABS: BUN/Creatinine Ratio 22.6 (10.0-20.0); Blood Urea Nitrogen 12 mg/dL (9-23); Glucose 104 mg/dL (74-106)
[2024-11-15 08:00] VITALS: PULSE 78; PULSE 84; RESP 18; O2SAT 96
[2024-11-15 09:00] VITALS: BP 118/72; PULSE 84; RESP 18; TEMP 98.3; O2SAT 96
[2024-11-15 10:00] VITALS: PULSE 84; RESP 18; O2SAT 96
[2024-11-15] MEDS: POTASSIUM EFFERVESENT TAB 25 MEQ PO ONE (10:22)
[2024-11-15 11:34] LABS: COVID19 ANTIGEN SOFIA FIA NEGATIVE (NEGATIVE)
[2024-11-15 12:13] LABS: Rapid Influenza A Negative (Negative); Rapid Influenza B Negative (Negative)
[2024-11-15 12:34] VITALS: BP 119/75; PULSE 76; RESP 18; TEMP 98.7; O2SAT 97
[2024-11-15] MEDS ORDERED: TAMIFLU PO (14:12)
[2024-11-15] MEDS ORDERED: INSLANTI SC (14:12)
--- NOTE | 2024-11-15 21:23 | DVHDSRES ---
Discharge Summary Date of Admission Resident Creating Document: TIAN RECIO RESIDENT Nov 13, 2024 at 23:18 Date of Discharge: Nov 15, 2024 Admitting Diagnosis Acute abdoinal pain Diabetic Ketoacidosis Metabolic Acidosis Labs/Diagnostic Data: Laboratory Results Test 11/15/24 10:20 11/15/24 07:18 11/15/24 05:30 11/14/24 04:17 Influenza Type A Antigen Negative (Negative) Influenza Type B Antigen Negative (Negative) SARS-CoV-2 Antigen (Rapid) Negative (NEGATIVE) POC Glucose 154 mg/dl (70-106) White Blood Count 4.9 10^3/uL (4.4-10.8) Red Blood Count 5.00 10^6/uL (4.5-5.90) Hemoglobin 15.7 g/dL (13.5-17.5) Hematocrit 45.1 % (41.0-53.0) Mean Corpuscular Volume 90.3 fL (80.0-100.0) Mean Corpuscular Hemoglobin 31.4 pg (28.0-32.0) Mean Corpuscular Hemoglobin Concent 34.7 g/dL (32.0-36.0) Red Cell Distribution Width 13.3 % (11.8-14.3) Platelet Count 171 10^3/uL (140-450) Mean Platelet Volume 8.4 fL (6.9-10.8) Neutrophils (%) (Auto) 61.7 % (37.0-80.0) Lymphocytes (%) (Auto) 27.1 % (10.0-50.0) Monocytes (%) (Auto) 9.8 % (0.0-12.0) Eosinophils (%) (Auto) 1.0 % (0.0-7.0) Basophils (%) (Auto) 0.4 % (0.0-2.0) Neutrophils # (Auto) 3.0 10 ^3/uL (1.6-8.6) Lymphocytes # (Auto) 1.3 10 ^3/uL (0.4-5.4) Monocytes # (Auto) 0.5 10 ^3/uL (0-1.3) Eosinophils # (Auto) 0 10 ^3/uL (0-0.8) Basophils # (Auto) 0 10 ^3/uL (0-0.2) Nucleated Red Blood Cells 0.1 % Sodium Level 136 mmol/L (136-145) Potassium Level 3.0 mmol/L (3.5-5.1) Chloride Level 100 mmol/L (98-107) Carbon Dioxide Level 29 mmol/L (20-31) Anion Gap 7 (5-15) Blood Urea Nitrogen 12 mg/dL (9-23) Creatinine 0.53 mg/dL (0.700-1.30) Glomerular Filtration Rate Calc 138 mL/min (>90) BUN/Creatinine Ratio 22.6 (10.0-20.0) Serum Glucose 104 mg/dL (74-106) Calcium Level 9.4 mg/dL (8.7-10.4) Prothrombin Time 10.9 sec (9.3-11.8) Prothrombin Time INR 1.03 (0.9-1.15) Test 11/14/24 00:18 11/13/24 23:35 11/13/24 21:30 Serum Osmolality 289 mOsm/kg (278-298) Phosphorus Level 1.6 mg/dL (2.4-5.1) Magnesium Level 1.7 mg/dL (1.6-2.6) Total Bilirubin 0.4 mg/dL (0.2-1.0) Aspartate Amino Transferase (AST) 55 U/L (13-40) Alanine Aminotransferase (ALT) 61 U/L (7-40) Alkaline Phosphatase 123 U/L (46-116) Total Protein 6.0 g/dL (5.7-8.2) Albumin 3.8 g/dL (3.2-4.8) Beta-Hydroxybutyric Acid 3.935 mmol/L (< 0.4) Blood Gas Specimen Type Arterial Blood Gas Sample Site Right radial Blood Gas Patient Temperature 37.0 Arterial Blood Date Drawn [id number] Arterial Blood pH 7.325 (7.350-7.450) Arterial Blood Partial Pressure CO2 30.7 mmHg (35.0-48.0) Arterial Blood Partial Pressure O2 86.2 mmHg (83.0-108.0) Arterial Blood HCO3 15.6 mmol/L (21.0-28.0) Arterial Blood Oxygen Saturation 95.6 % (94.0-98.0) Arterial Blood Base Excess -9.0 mmol/L (-2.0-3.0) Arterial Blood Oxyhemoglobin 94.7 % (94.0-98.0) Arterial Blood Carboxyhemoglobin 0.6 % (0.5-1.5) Arterial Blood Methemoglobin 0.3 % (0.0-1.5) [place] Test Modified Blood Gas Total Hemoglobin 14.90 g/dL (13.5-17.5) Blood Gas Modality Room air FiO2 % 21.0 Urine Color Light-yellow (Yellow) Urine Clarity Clear (Clear) Urine pH 5.5 (5.0-9.0) Urine Specific [place] 1.035 (1.001-1.035) Urine Protein Negative (Negative) Urine Ketones 4+ (Negative) Urine Blood Negative /uL (Negative) Urine Nitrite Negative (Negative) Urine Bilirubin Negative (Negative) Urine Urobilinogen Normal mg/dL (Negative) Urine Leukocyte Esterase Negative /uL (Negative) Urine RBC <1 /hpf (0 - 3) Urine WBC 1 /hpf (0 - 3) Urine Squamous Epithelial Cells Few /hpf (<5) Urine Bacteria None seen /hpf (None Seen) Urine Glucose 4+ mg/dL (Normal) Urine Opiates Screen Neg (NEGATIVE) Urine Fentanyl Screen Neg (NEGATIVE) Urine Barbiturates Screen Neg (NEGATIVE) Urine Phencyclidine Screen Neg (NEGATIVE) Urine Amphetamines Screen Pos (NEGATIVE) Urine Benzodiazepines Screen Neg (NEGATIVE) Urine Cocaine Screen Neg (NEGATIVE) Urine Cannabinoids Screen Neg (NEGATIVE) Other Laboratory Tests 11/15/24 05:30 Brief Hx & Hospital Course: HPI: The patient was admitted with uncontrolled type 1 diabetes mellitus complicated by recurrent diabetic ketoacidosis (DKA) due to non-compliance with insulin therapy. He presented with epigastric abdominal pain and palpitations. Hospital course: The patient, a 29-year-old male with a history of type 1 diabetes mellitus and recurrent hospitalizations for diabetic ketoacidosis (DKA), was admitted due to episodes of epigastric abdominal pain and palpitations lasting for two days. At the time of admission, he reported no nausea, vomiting, diarrhea, chest pain, shortness of breath, or dysuria. However, his recent HbA1c was significantly elevated at 11%, indicative of poor glycemic control. Blood gas analysis revealed metabolic acidosis with a pH of 7.32, PCO2 of 30.7, and HCO3 of 15.6, confirming an uncompensated metabolic state with an elevated anion gap consistent with DKA. The patient was treated with insulin infusion and intravenous dextrose. Potassium supplementation was administered to maintain potassium levels above 4.0 mEq/L during insulin therapy. His glucose levels improved, with the most recent measurement at 136 mg/dL. The patient was stabilized metabolically and transitioned back to subcutaneous insulin therapy with education provided on the importance of adherence to insulin administration and diabetes management. Additionally, the patient tested positive for influenza during this admission and was started on oseltamivir for treatment. He reported no ongoing symptoms or complications related to the influenza infection during his hospital course. Socially, the patient disclosed living on the streets for the past two months, which poses challenges to adherence to his diabetes management plan. administrative services director were involved to assist with resources and potential housing solutions. He expressed understanding of his condition and a willingness to improve compliance with insulin therapy. Disposition: The patient demonstrated significant clinical improvement, denied any new complaints, and was deemed stable for discharge Case discussed with Goals of care discussed with the patient for 28 minutes.. Condition at Discharge: Fair Final Diagnosis/Problems List #Acute anion gap metabolic acidosis with respiratory compensation # Diabetic ketoacidosis due to Medication non compliance # Uncontrolled type 2 diabetes mellitus # Type B influenza infection # methamphetamine use #History of alcohol abuse Discharge Disposition: Intermediate SNF Discharge Will this Physician continue t: No Discharge Instruct/Medications Diet: Cardiac 2g Na,low cholest Activity: No Restrictions, As Tolerated Follow Up/Referral: follow up with PCP within 1 to 2 weeks Medications: lantus 20 BID Discharge Statement: "Patient was advised to return to the ER or call 911 if any headaches, dizziness, shortness of breath, chest pain, abdominal pain, bleeding, fevers, or worsening of medical condition. Patient was counseled about treatment plan, medications, possible side effects, patientverbalized understanding. All questions were answered to the best of my ability. This discharge took greater then 30 minutes in planning, reviewing documentation, counseling the patient, and discussing with other team members." ASSESSMENT ASSESSMENT Assessment Acute abdominal pain likely due to DKA Date of Service: Nov 15, 2024 Billing Provider: ANUJA MELENDEZ MD Common Visit Codes: [id number] DISCH DAY >30min TIAN RECIO RESIDENT Nov 15, 2024 21:23 ANUJA MELENDEZ MD Nov 16, 2024 10:41
[2024-11-22] MEDS ORDERED: BACDST PO (22:34)
== END 2024-11-15 15:14 | disposition home or self-care (01) | DRG 420 ==
LOC: EDBD 17:53 → ER 17:53 → TELE 23:18 → TELE-EAST 11-14 21:20
PROVIDERS: ADMIT Internal Medicine Geriatric Medicine; ATTEND Emergency Medicine
DX: E11.10 Type 2 diabetes mellitus with ketoacidosis without coma (principal); F10.10 Alcohol abuse, uncomplicated; F15.10 Other stimulant abuse, uncomplicated; Z20.822 Contact with and (suspected) exposure to COVID-19; F17.210 Nicotine dependence, cigarettes, uncomplicated; Y90.9 Presence of alcohol in blood, level not specified; F32.A Depression, unspecified; F41.9 Anxiety disorder, unspecified; J10.1 Influenza due to other identified influenza virus with other respiratory manifestations; Z59.00 Homelessness unspecified; Z88.0 Allergy status to penicillin; Z88.8 Allergy status to other drugs, medicaments and biological substances; Z79.899 Other long term (current) drug therapy; Z79.4 Long term (current) use of insulin; Z91.148 Patient's other noncompliance with medication regimen for other reason; Z71.41 Alcohol abuse counseling and surveillance of alcoholic; T38.3X6A Underdosing of insulin and oral hypoglycemic [antidiabetic] drugs, initial encounter; Y92.89 Other specified places as the place of occurrence of the external cause
CPT/HCPCS: 36415; 36600; 80048; 80053; 80307; 81001; 82010; 82805; 82962; 83735; 83930; 84100; 85025; 85610; 87081; 87426; 87804; 99291; G0378; J1815; J2405

== ENCOUNTER 2024-12-19 07:35 | Emergency (ER) | payer MEDICAID ==
[~2024-12-19] VITALS: Ht 177.8 cm; Wt 68.2 kg
[~2024-12-19 07:35] MED LIST changes: +BACDST PO; +INSLANTI SC; +TAMIFLU PO
--- NOTE | 2024-12-19 08:11 | ED.PDOC ---
Eye-HPI HPI Comments 29 y/o M brought in by ambulance for CC of flu-like symptoms. Per EMS, patient has been experiencing flu-like symptoms with congestion x1week. Patient states, that he has had a productive cough that is green in color with associated symptoms of eye irritation. Patient comments that he has PMHX of diabetes and ran out of his insulin medication yesterday. Patient is currently homeless and lives on the streets; believes symptoms could be due to severe drop in temperature. Patient denies social history. Patient denies fever, chills, body- aches, or N/V/D. No other symptoms or modifying factors at this time. Chief Complaint: Flu like Time Seen by MD: 08:00 Primary Care Provider: NONE Reviewed Notes: Nurses Notes, Medications, Allergies Allergies: Coded Allergies: Penicillin G (Verified Allergy, Unknown, 07/01/22) Penicillins (Unverified Allergy, Unknown, 07/01/22) Piperacillin (Verified Allergy, Unknown, 10/23/23) Tazobactam (Verified Allergy, Unknown, 10/23/23) Home Meds Active Scripts Sulfamethoxazole W/Trimethopri (Bactrim Ds Tablet) 1 Tab Tb, 1 TAB PO BID for 10 Days, #20 TAB Prov:ERIN PADILLA 11/22/24 Oseltamivir Phosphate (Tamiflu) 75 Mg Cap, 75 MG PO BID for 4 Days, #8 CAP Prov:ANUJA MELENDEZ MD 11/15/24 Insulin Glargine (Lantus) 100 Unit/Ml Inj, 20 UNIT SC BID, #1000 UNITS Prov:ANUJA MELENDEZ MD 11/15/24 Oseltamivir Phosphate (Tamiflu) 75 Mg Cap, 1 CAP PO BID for 5 Days, #10 CAP Prov:SANDIP ALEGRIA MD 11/13/24 Insulin Glargine (Lantus Solostar) 100 Unit/Ml Inj, 30 UNITS SC BID for 30 Days, #1 INJ 5 Refills Prov:EDGARDO SILVERIO MD 11/07/24 Insulin Regular (Human) (Novolin R) 100 Unit/Ml Inj, 10 UNITS SC ACHS for 30 Days, #3 UNITS 5 Refills Prov:EDGARDO SILVERIO MD 11/07/24 Insulin Syringes (Disposable) (Bd Insulin Syringe Luer-L) 1 Ml Mis, ML XX 6XD, #120 3 Refills Prov:EDGARDO SILVERIO MD 11/07/24 Insulin Syringe/Needle U-100 (ADVOCATE INSULIN SYRINGE/) 0.5 Mg/31 G Mis, APPLIC XX, #100 Use as directed Prov:EDGARDO SILVERIO MD 11/07/24 Insulin Syringe/Needle U-100 (ADVOCATE INSULIN SYRINGE/) 1 Ml/31 G Mis, ML XX TID PRN, #100 3 Refills use for insulin administration Prov:EDGARDO SILVERIO MD 11/07/24 Blood Glucose Monitoring Suppl (D-Care Glucometer Kit/Glu W/Device) 1 Kit Kit, KIT SC 5XD PRN, #1 1 Refill please check serum glucose before each meal. Prov:EDGARDO SILVERIO MD 11/07/24 Information Source: Patient Mode of Arrival: EMS Timing: Days Duration: Since onset Prehospital treatment: None Quality: Discharge, Green Lids: Normal Conjunctiva: Normal Cornea: Normal Pupils: Normal EOM: Normal Fundus: Normal Slit lamp exam: Normal Anterior chamber: Normal Mouth: Normal ENT Ear Exam: Normal Nose: Normal Sinuses: Normal Oropharynx: Normal Throat Exposed to: None History of: None Associated signs and symptoms: None Past Medical History PAST MEDICAL HISTORY: Anxiety, Depression, DM, ND Surgical History: Denies all surgeries Family History Family History: Reviewed,noncontributory to illness, Family hx of DM Social History Smoker: Cigarettes Alcohol: Heavy Drugs: Methamphetamine Lives In: Homeless Constitutional: denies: chills, diaphoresis, fatigue, fever, malaise, sweats, weakness, others EENTM: reports: eye pain, eye redness; denies: blurred vision, double vision, ear bleeding, ear discharge, ear drainage, ear pain, ear ringing, hearing loss, mouth pain, mouth swelling, nasal discharge, nose bleeding, nose congestion, nose pain, photophobia, tearing, throat pain, throat swelling, voice changes, others Respiratory: reports: cough; denies: hemoptysis, orthopnea, SOB at rest, shortness of breath, SOB with excertion, stridor, wheezing, others Cardiovascular: denies: chest pain, dizzy spells, diaphoresis, Dyspnea on exertion, edema, irregular heart beat, left arm pain, lightheadedness, palpitations, PND, syncope, others Gastrointestinal: denies: abdomen distended, abdominal pain, blood streaked bowels, constipated, diarrhea, dysphagia, difficulty swallowing, hematemesis, melena, nausea, poor appetite, poor fluid intake, rectal bleeding, rectal pain, vomiting, others Genitourinary: denies: burning, dysuria, flank pain, frequency, hematuria, incontinence, penile discharge, penile sore, pain, testicle pain, testicle swelling, urgency, others Neurological: denies: dizziness, fainting, headache, left sided numbness, left sided weakness, numbness, paresthesia, pre-existing deficit, right sided numbness, right sided weakness, seizure, speech problems, tingling, tremors, w eakness, others Musculoskeletal: denies: back pain, gout, joint pain, joint swelling, muscle pain, muscle stiffness, neck pain, others Integumetry: denies: bruises, change in color, change in hair/nails, dryness, laceration, lesions, lumps, rash, wounds, others Allergic/Immunocompromised: denies: Difficulty Healing, Frequent Infections, Hives, Itching, others Hematologic/Lymphatic: denies: anemia, blood clots, easy bleeding, easy bruising, swollen glands, others Endocrine: denies: excessive hunger, excessive sweating, excessive thirst, excessive urination, flushing, intolerance to cold, intolerance to heat, unexplained weight gain, unexplained weight loss, others Psychiatric: denies: anxiety, bipolar disorder, depression, hopeless, panic disorder, schizophrenia, sleepless, suicidal, others All Other Systems: Reviewed and Negative Physical Exam General Appearance: Moderate Distress HEENT: Pharynx Normal, TMs Normal Neck: Full Range of Motion, Non-Tender, Normal, Normal Inspection Respiratory: Chest Non-Tender, Lungs Clear, No Accessory Muscle Use, No Respiratory Distress, Normal Breath Sounds Cardiovascular: No Edema, No JVD, No Murmur, No Gallop, Normal Peripheral Pulses, Regular Rate/Rhythm Breast Exam: Deferred Gastrointestinal: No Organomegaly, Non Tender, No Pulsatile Mass, Normal Bowel Sounds, Soft Genitalia: Deferred Pelvic: Deferred Rectal: Deferred Extremities: No calf tenderness, Normal capillary refill, Normal inspection, Normal range of motion, Non-tender, No pedal edema Musculoskeletal : Apperance: Normal Neurologic: Alert, No Motor Deficits, No Sensory Deficits Cerebellar Function: Normal Reflexes: Normal Skin: Normal Color Peripheral Pulses: 3+ Radial (R), 3+ Radial (L) Lymphatic: No Adenopathy Was a procedure done? Was a procedure done?: No EENT DIFF Eye: Conjunctivitis, Bacterial, Corneal Abrasion, Corneal Lacerations Sore Throat: Pharyngitis, Streptococcal, Viral Pharyngitis, URI X-Ray, Labs, Meds, VS Vital Signs Date Time Temp Pulse Resp B/P (MAP) Pulse Ox O2 Delivery O2 Flow Rate FiO2 12/19/24 08:54 97.8 98 17 145/70 (95) 99 97.8 12/19/24 08:52 Room Air* 0 21 12/19/24 07:40 98.8 89 14 143/78 (99) 97 12/19/24 07:40 89 14 97 Room Air 0 Lab Test 12/19/24 07:43 Range/Units POC Glucose 300 H 70-106 mg/dl Patient alert. Complaining of cough. Vitals stable. Answering all questions. Blood sugar elevated. Was given insulin. He does not take care himself. 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 Explained to the patient. Was told to follow up with his primary care physician. Was told to come back if there is any problem. Time of 1ST Reevaluation: 08:30 Reevaluation 1ST: Improved Patient Education/Counseling: Diagnosis, Treatment Family Education/Counseling: No Family Present Departure 1 Departure Time of Disposition: 09:05 Impression: Primary Impression: Uncontrolled diabetes mellitus Qualified Codes: E13.65 - Other specified diabetes mellitus with hyperglycemia Additional Impression: Bronchitis Disposition: 01 HOME / SELF CARE / HOMELESS Condition: Good e-Prescriptions Metformin Hydrochloride (Metformin Hcl) 500 Mg Tab 1 TAB PO BID for 10 Days, #20 TAB 3 Refills Prov: JEAN LEONARDO MD 12/19/24 Levofloxacin Hemihydrate (LEVOFLOXACIN) 500 Mg Tab 1 TAB PO DAILY for 7 Days, #7 TAB Prov: JEAN LEONARDO MD 12/19/24 Discharged With: Self Critical Care Note Critical Care Time?: Yes (90 min-critical care time only) Critical care comment: Facial cellulitis start antibiotics Stability Stability form required: No Heart Score Heart Score: Heart Score Response (Comments) Value History N/A 0 EKG N/A 0 Age N/A 0 Risk Factors N/A 0 Troponin N/A 0 Total 0 I personally scribed for JEAN LEONARDO MD ([email or web address]) on 12/19/24 at 08:11. Electronically submitted by Shanelle Wakefield ([employer]). I personally scribed for JEAN LEONARDO MD ([email or web address]) on 12/19/24 at 08:17. Electronically submitted by Shanelle Wakefield ([email or web address]). I personally scribed for JEAN LEONARDO MD ([email or web address]) on 12/19/24 at 08:44. Electronically submitted by Shanelle Wakefield ([employer]). JEAN LEONARDO MD Dec 19, 2024 08:11
[2024-12-19 08:54] VITALS: BP 145/70; PULSE 98; RESP 17; TEMP 97.8; O2SAT 99
[2024-12-19] MEDS ORDERED: VANCOMYCIN 1GM/250ML KIT 250 ML IV ONE (09:15)
[2024-12-19] MEDS ORDERED: CLINDAMYCIN 600MG IV 50 ML IV ONE (09:15)
[2024-12-19] MEDS ORDERED: METF-370 PO (09:20)
[2024-12-19] MEDS ORDERED: LEVO500T91 PO (09:20)
[2024-12-19] MEDS ORDERED: InsuLIN REG 1unit/0.01ml Soln (100units/ml) SC ONE (09:30)
== END 2024-12-19 09:03 | disposition left against medical advice (07) ==
LOC: ER 07:35 → EDBD 07:35 → ER 09:03
DX: J40 Bronchitis, not specified as acute or chronic (principal); E11.65 Type 2 diabetes mellitus with hyperglycemia; I25.2 Old myocardial infarction; F17.210 Nicotine dependence, cigarettes, uncomplicated; Z59.02 Unsheltered homelessness; Z79.4 Long term (current) use of insulin; Z88.0 Allergy status to penicillin; Z79.899 Other long term (current) drug therapy; Z88.8 Allergy status to other drugs, medicaments and biological substances
CPT/HCPCS: 82962

== ENCOUNTER 2024-12-27 21:03 | Emergency (ER) | payer MEDICAID ==
[~2024-12-27] VITALS: Ht 177.8 cm; Wt 145.8 kg
[~2024-12-27 21:03] MED LIST changes: +LEVO500T91 PO; +METF-370 PO
--- NOTE | 2024-12-27 22:16 | ED.PDOC ---
History of present illness HPI Comments HPI: Poor Historian. 29y M who presents to the ED for chief complaint of vomiting nonbilious nonbloody. Patient is well-known to the emergency department for multiple visits for uncontrolled diabetes and DKA. Pt has the following course of events: - pt has history of DM and has not been taking his insulin for the past 2 days - pt has been having constant nausea and vomiting for the past 2 days - pt has his blood glucose level was measured at 369 in the ED - pt is noted to be homeless Past medical history: anxiety, depression, DM, PR, DKA, homelessness Past surgical history: denies Social history: endorses tobacco use, endorses ETOH use, endorses drug use(METH) Medications: insulin Allergies: penicillins, piperacillin, tazobactam REVIEW OF SYSTEMS: CONSTITUTIONAL: Denies acute: fever, diaphoresis, chills, HEAD: Denies acute: headache, photophobia Eyes: Denies acute: Double vision, vision loss, eye pain, eye discharge. EARS: Denies acute: tinnitus, hearing loss, ear discharge, ear pain, THROAT: Denies acute: sore throat, swelling, difficulty swallowing , pain with swallowing, change in voice. NECK: Denies acute: neck pain, neck swelling, stiff neck. HEART: Denies acute : chest pain, palpitations, LUNGS: Denies acute: SOB, wheezing, cough, hemoptysis ABDOMEN: Denies acute: abdominal pain, diarrhea, melena , hematemesis, hematochezia SKIN: Denies acute: rash, redness, lesions, itchiness. EXTREMITIES: Denies acute: calf pain, numbness, tingling, weakness, denies pain in extremity. Denies acute: Low back pain. Neuro: Denies acute: focal neurological deficit, motor or sensory focal neurological deficit, tremors, seizure like activity, confusion, dizziness, change in mental status, loss of bowel or bladder function, cauda equina like symptoms. : Denies acute: dysuria, hematuria, flank pain, increase in urinary frequency. PSYCH: Denies acute: hallucination, suicidal ideation, homicidal ideation. PHYSICAL EXAM: General: no acute distress, awake and alert. Head: normocephalic, atraumatic. Neck: supple, trachea is midline, no swelling. Throat: Normal phonation. Eyes:, no erythema, no purulent discharge, no proptosis, no icterus. Heart: regular rate, regular rhythm, no significant murmur appreciated. Lungs: no apparent respiratory distress, Able to speak in full sentences. No wheezing, no rhonchi, no crackles. No stridors Clear to auscultation bilaterally. Abdomen: non tender to palpation, non distended, soft, no guarding, no rebound, + bowel sounds. Neuro: Awake, Alert, oriented to name, self, situation, follows commands GCS=15. Speech is normal. Skin: no petechia, no purpura, no cyanosis, non-pale, not jaundice. Lower extremities: --no - Pitting edema no deformity, no focal swelling, no calf TTP. Makes eye contact. moves all four extremities. Face: no apparent facial droop. Ambulating in the ED independently. Chief Complaint: Nausea/Vomiting Time Seen by MD: 22:16 Primary Care Provider: NONE Allergies: Coded Allergies: Penicillin G (Verified Allergy, Unknown, 07/01/22) Penicillins (Unverified Allergy, Unknown, 07/01/22) Piperacillin (Verified Allergy, Unknown, 10/23/23) Tazobactam (Verified Allergy, Unknown, 10/23/23) Home Meds Active Scripts Metformin Hydrochloride (Metformin Hcl) 500 Mg Tab, 1 TAB PO BID for 10 Days, #20 TAB 3 Refills Prov:JEAN LEONARDO MD 12/19/24 Levofloxacin Hemihydrate (LEVOFLOXACIN) 500 Mg Tab, 1 TAB PO DAILY for 7 Days, #7 TAB Prov:JEAN LEONARDO MD 12/19/24 Sulfamethoxazole W/Trimethopri (Bactrim Ds Tablet) 1 Tab Tb, 1 TAB PO BID for 10 Days, #20 TAB Prov:ERIN PADILLA 11/22/24 Oseltamivir Phosphate (Tamiflu) 75 Mg Cap, 75 MG PO BID for 4 Days, #8 CAP Prov:ANUJA MELENDEZ MD 11/15/24 Insulin Glargine (Lantus) 100 Unit/Ml Inj, 20 UNIT SC BID, #1000 UNITS Prov:ANUJA MELENDEZ MD 11/15/24 Oseltamivir Phosphate (Tamiflu) 75 Mg Cap, 1 CAP PO BID for 5 Days, #10 CAP Prov:SANDIP ALEGRIA MD 11/13/24 Insulin Glargine (Lantus Solostar) 100 Unit/Ml Inj, 30 UNITS SC BID for 30 Days, #1 INJ 5 Refills Prov:EDGARDO SILVERIO MD 11/07/24 Insulin Regular (Human) (Novolin R) 100 Unit/Ml Inj, 10 UNITS SC ACHS for 30 Days, #3 UNITS 5 Refills Prov:EDGARDO SILVERIO MD 11/07/24 Insulin Syringes (Disposable) (Bd Insulin Syringe Luer-L) 1 Ml Mis, ML XX 6XD, #120 3 Refills Prov:EDGARDO SILVERIO MD 11/07/24 Insulin Syringe/Needle U-100 (ADVOCATE INSULIN SYRINGE/) 0.5 Mg/31 G Mis, APPLIC XX, #100 Use as directed Prov:EDGARDO SILVERIO MD 11/07/24 Insulin Syringe/Needle U-100 (ADVOCATE INSULIN SYRINGE/) 1 Ml/31 G Mis, ML XX TID PRN, #100 3 Refills use for insulin administration Prov:EDGARDO SILVERIO MD 11/07/24 Blood Glucose Monitoring Suppl (D-Care Glucometer Kit/Glu W/Device) 1 Kit Kit, KIT SC 5XD PRN, #1 1 Refill please check serum glucose before each meal. Prov:EDGARDO SILVERIO MD 11/07/24 Information Source: Patient Mode of Arrival: Ambulatory Past Medical History PAST MEDICAL HISTORY: Anxiety, Depression, DM, PR Surgical History: Denies all surgeries Family History Family History: Reviewed,noncontributory to illness, Family hx of DM Social History Smoker: Cigarettes Alcohol: Heavy Drugs: Methamphetamine Lives In: Homeless Was a procedure done? Was a procedure done?: No Differential Diagnosis (DM) Differential Diagnosis: Dehydration, Diabetic Coma, DKA, Electrolyte Abnormality, Gastritis, Gastroenteritis, Hyperglycemia, Hyperosmolar State, Hypoglycemia, UTI X-Ray, Labs, Meds, VS Vital Signs Date Time Temp Pulse Resp B/P (MAP) Pulse Ox O2 Delivery O2 Flow Rate FiO2 12/28/24 02:20 96 20 95 Room Air* 0 21 12/28/24 02:18 98.0 96 20 115/78 (90) 95 98.0 12/27/24 22:02 97.7 95 18 118/85 (96) 95 Lab Test 12/28/24 03:30 12/28/24 03:10 12/28/24 00:12 12/27/24 22:07 Range/Units Urine Color Light-yellow Yellow Urine Clarity Clear Clear Urine pH 6.5 5.0-9.0 Urine Specific [place] 1.012 1.001-1.035 Urine Protein Negative Negative Urine Ketones 1+ H Negative Urine Blood Negative Negative /uL Urine Nitrite Negative Negative Urine Bilirubin Negative Negative Urine Urobilinogen Normal Negative mg/dL Urine Leukocyte Esterase Negative Negative /uL Urine RBC 1 0 - 3 /hpf Urine Microscopic WBC < 1 0-3 /HPF Urine Squamous Epithelial Cells Few <5 /hpf Urine Bacteria None seen None Seen /hpf Urine Glucose 4+ H Normal mg/dL Sodium Level 135 L 132 L 136-145 mmol/L Potassium Level 3.5 4.2 3.5-5.1 mmol/L Chloride Level 100 91 L 98-107 mmol/L Carbon Dioxide Level 26 28 20-31 mmol/L Anion Gap 9 13 5-15 Blood Urea Nitrogen 16 12 9-23 mg/dL Creatinine 0.60 L 0.85 0.700-1.30 mg/dL Glomerular Filtration Rate Calc 133 120 >90 mL/min BUN/Creatinine Ratio 26.7 H 14.1 10.0-20.0 Serum Glucose 178 #H 447 *H 74-106 mg/dL Calcium Level 8.9 10.7 H 8.7-10.4 mg/dL Total Bilirubin 0.7 0.7 0.2-1.0 mg/dL Aspartate Amino Transferase (AST) 87 H 146 H 13-40 U/L Alanine Aminotransferase (ALT) 80 H 105 H 7-40 U/L Alkaline Phosphatase 122 H 156 H 46-116 U/L Total Protein 6.2 7.7 5.7-8.2 g/dL Albumin 3.8 4.6 3.2-4.8 g/dL Lactic Acid Level 1.8 4.0 *H 0.4-2.0 mmol/L White Blood Count 4.6 4.4-10.8 10^3/uL Red Blood Count 5.39 4.5-5.90 10^6/uL Hemoglobin 17.3 13.5-17.5 g/dL Hematocrit 50.7 41.0-53.0 % Mean Corpuscular Volume 94.0 80.0-100.0 fL Mean Corpuscular Hemoglobin 32.1 H 28.0-32.0 pg Mean Corpuscular Hemoglobin Concent 34.1 32.0-36.0 g/dL Red Cell Distribution Width 13.6 11.8-14.3 % Platelet Count 235 140-450 10^3/uL Mean Platelet Volume 7.9 6.9-10.8 fL Neutrophils (%) (Auto) 60.0 37.0-80.0 % Lymphocytes (%) (Auto) 25.8 10.0-50.0 % Monocytes (%) (Auto) 11.8 0.0-12.0 % Eosinophils (%) (Auto) 1.5 0.0-7.0 % Basophils (%) (Auto) 0.9 0.0-2.0 % Neutrophils # (Auto) 2.8 1.6-8.6 10 ^3/uL Lymphocytes # (Auto) 1.2 0.4-5.4 10 ^3/uL Monocytes # (Auto) 0.5 0-1.3 10 ^3/uL Eosinophils # (Auto) 0.1 0-0.8 10 ^3/uL Basophils # (Auto) 0 0-0.2 10 ^3/uL Nucleated Red Blood Cells 0.2 % Magnesium Level 2.1 1.6-2.6 mg/dL Lipase 47 12-53 U/L Beta-Hydroxybutyric Acid 1.559 H < 0.4 mmol/L Current Medications Medications (Trade) Dose Ordered Sig/Toño Route Start Time Stop Time Status Last Admin Sodium Chloride 1,000 ml @ 1,000 mls/hr Q1H ONCE IV 12/27/24 22:00 12/27/24 22:59 DC 12/28/24 02:09 Ondansetron HCl (Zofran) 8 mg ONCE ONCE IV 12/27/24 22:00 12/27/24 22:02 DC 12/28/24 02:09 Insulin Human Regular (InsuLIN R) 5 units ONCE ONCE IV 12/27/24 23:00 12/27/24 23:04 DC 12/28/24 02:16 Sodium Chloride 1,000 ml @ 1,000 mls/hr Q1H ONCE IV 12/27/24 23:00 12/27/24 23:59 DC 12/28/24 02:10 Time of 1ST Reevaluation: 04:14 Reevaluation 1ST: Resolved Patient Education/Counseling: Diagnosis, Treatment Family Education/Counseling: No Family Present Comments Patient presented with the above HPI.--hyperglycemia----workup was initiated. patient was found with the above mentioned diagnosis. the following medications were ordered: Insulin and fluids please refer to order lists of meds and tests obtained by myself Dr. Pinto. Patient ED course and VS have been stabilized. Patient has been reassessed in the ED and remained in a stable condition. Pertinent incidental findings were discussed with the patient and/or family. Patient/family voices understanding and is agreeable with plan. Patient has been observed in the ED adequate length of time to insure improvement/stability. Escalation of care considered: Consideration of escalation to observation or admission Patient is not in DKA. Repeat labs shows stabilization of his electrolytes and sugar. Patient did not have a single episode of nausea and vomiting here in the ED. Patient was DISCHARGED home in a stable condition. All the reports of any imaging studies that were ordered by myself were reviewed by myself. Departure 1 Departure Time of Disposition: 04:12 Impression: Primary Impression: Hyperglycemia due to diabetes mellitus Additional Impressions: Uncontrolled diabetes mellitus Elevated LFTs Disposition: 01 HOME / SELF CARE / HOMELESS Admit to: Tele Condition: Stable Additional Instructions: Additional discharge instructions: You MUST follow-up with your primary care/family doctor in 1 to 2 days. If you are unable to see your primary care/family doctor, please return to our emergency room for re-assessment and re-evaluation in 1 to 2 days. Return to the emergency room here in our facility or to the nearest ER [facility] if your symptoms change or worsen. CONSULTATIONS: you MUST Follow-up for consultation as soon as possible with: --endocrinology in 1-2 days. Please call for appointment You MUST call the consultants office yourself to make an appointment. You may need to arrange that through your insurance and/or your primary/family doctor. If you are unable to see the senior sustainability consultant in 1 to 2 days, you must return to our emergency room (or any other ER of your choice) for re-assessment and re- evaluation. Adequate fluid hydration. Please monitor your sugar at least 3 times a day and be compliant with your insulin. Discharged With: Self Critical Care Note Critical Care Time?: No I personally scribed for SERG PINTO DO ([email or web address]) on 12/27/24 at 22:16. Electronically submitted by Nickie Novak ([email or web address]). SERG PINTO DO Dec 27, 2024 22:16
[2024-12-27 22:24] LABS: Basophils # (auto) 0 10 ^3/uL (0-0.2); Basophils % (auto) 0.9 % (0.0-2.0); Eosinophils # (auto) 0.1 10 ^3/uL (0-0.8); Eosinophils % (auto) 1.5 % (0.0-7.0); Hematocrit 50.7 % (41.0-53.0); Hemoglobin 17.3 g/dL (13.5-17.5); Lymphocytes # (auto) 1.2 10 ^3/uL (0.4-5.4); Lymphocytes % (auto) 25.8 % (10.0-50.0); Mean Corpuscular Hemoglobin 32.1 pg (28.0-32.0); Mean Corpuscular Hgb Conc. 34.1 g/dL (32.0-36.0); Monocytes # (auto) 0.5 10 ^3/uL (0-1.3); Monocytes % (auto) 11.8 % (0.0-12.0); Neutrophils # (auto) 2.8 10 ^3/uL (1.6-8.6); Nucleated Red Blood Cells % 0.2 %; Platelet Count (auto) 235 10^3/uL (140-450); Red Blood Cells 5.39 10^6/uL (4.5-5.90); Red Cell Distribution Width 13.6 % (11.8-14.3); White Blood Cell 4.6 10^3/uL (4.4-10.8)
[2024-12-27 22:43] LABS: Carbon Dioxide 28 mmol/L (20-31); Potassium 4.2 mmol/L (3.5-5.1)
[2024-12-27 22:44] LABS: Albumin 4.6 g/dL (3.2-4.8); Anion Gap 13 (5-15); BUN/Creatinine Ratio 14.1 (10.0-20.0); Bilirubin, Total 0.7 mg/dL (0.2-1.0); Blood Urea Nitrogen 12 mg/dL (9-23); Lipase 47 U/L (12-53); Magnesium 2.1 mg/dL (1.6-2.6); Total Protein 7.7 g/dL (5.7-8.2)
[2024-12-27 22:45] LABS: Alanine Aminotransferase 105 U/L (7-40); Alkaline Phosphatase 156 U/L (46-116); Aspartate Aminotransferase 146 U/L (13-40); Calcium 10.7 mg/dL (8.7-10.4); Chloride 91 mmol/L (98-107); Sodium 132 mmol/L (136-145)
[2024-12-27 22:47] LABS: Glucose 447 mg/dL (74-106)
[2024-12-28] MEDS: SODIUM CHLORIDE 0.9% 1,000 ML IV ONE ×2 (02:09→02:10)
[2024-12-28] MEDS: ONDANSETRON HCL 4 MG/2 ML VIAL IV ONE (02:09)
[2024-12-28] MEDS: InsuLIN REG 1unit/0.01ml Soln (100units/ml) IV ONE (02:16)
[2024-12-28 02:20] VITALS: PULSE 96; RESP 20; O2SAT 95
[2024-12-28 03:45] LABS: Urine Bacteria None Seen /hpf (None Seen)
[2024-12-28 03:46] LABS: Albumin 3.8 g/dL (3.2-4.8); Anion Gap 9 (5-15); BUN/Creatinine Ratio 26.7 (10.0-20.0); Bilirubin, Total 0.7 mg/dL (0.2-1.0); Blood Urea Nitrogen 16 mg/dL (9-23); Calcium 8.9 mg/dL (8.7-10.4); Carbon Dioxide 26 mmol/L (20-31); Chloride 100 mmol/L (98-107); Total Protein 6.2 g/dL (5.7-8.2)
[2024-12-28 03:49] LABS: Alanine Aminotransferase 80 U/L (7-40); Alkaline Phosphatase 122 U/L (46-116); Aspartate Aminotransferase 87 U/L (13-40); Glucose 178 mg/dL (74-106); Potassium 3.5 mmol/L (3.5-5.1); Sodium 135 mmol/L (136-145)
[2024-12-28 04:06] LABS: Urine Blood Negative /uL (Negative); Urine Clarity Clear (Clear); Urine Color Light-Yellow (Yellow); Urine Protein, UAD Negative (Negative); Urine Specific Gravity 1.012 (1.001-1.035); Urine Squamous Epithelial Cell FEW /hpf (<5); Urine Urobilinogen Normal (Negative); Urine WBC < 1 /HPF (0-3); Urine pH 6.5 (5.0-9.0)
[2024-12-28 05:53] VITALS: BP 118/75; PULSE 75; RESP 20; TEMP 98; O2SAT 98
== END 2024-12-28 05:45 | disposition home or self-care (01) ==
LOC: ER 21:03
DX: E11.65 Type 2 diabetes mellitus with hyperglycemia (principal); R79.89 Other specified abnormal findings of blood chemistry; F41.9 Anxiety disorder, unspecified; F32.A Depression, unspecified; F17.210 Nicotine dependence, cigarettes, uncomplicated; Z79.84 Long term (current) use of oral hypoglycemic drugs; Z79.899 Other long term (current) drug therapy; Z88.0 Allergy status to penicillin; Z88.8 Allergy status to other drugs, medicaments and biological substances
CPT/HCPCS: 36415; 80053; 81001; 82010; 83605; 83690; 83735; 85025; 96361; 96374; 96375; 99284; J1815; J2405; J7030

== ENCOUNTER 2025-01-26 05:41 | Emergency (ER) | payer MEDICAID ==
[~2025-01-26] VITALS: Ht 170.2 cm; Wt 70.5 kg
[2025-01-26 05:49] VITALS: BP 133/79; PULSE 100; RESP 24; O2SAT 99
== END 2025-01-26 07:34 | disposition left against medical advice (07) ==
LOC: ER 05:41 → EDSEX 05:41 → EDBD 05:41 → ER 07:34
DX: R11.2 Nausea with vomiting, unspecified (principal); R73.9 Hyperglycemia, unspecified; Z53.21 Procedure and treatment not carried out due to patient leaving prior to being seen by health care provider

== ENCOUNTER 2025-03-12 20:23 | Inpatient (IN) | payer MEDICAID ==
[~2025-03-12] VITALS: Ht 177.8 cm; Wt 68.0 kg
[2025-03-12] MEDS: FOLIC ACID 1 MG, MAGNESIUM SULF SDV 50% 8 MEQ, MULTIPLE VITAMIN 10 ML, THIAMINE INJ 100... INJ SCH
--- NOTE | 2025-03-12 20:33 | ED.PDOC ---
GI ASSESSMENT HPI Comments 30y M who presents to the ED via EMS for chief complaint of abdominal pain. EMS states pt is homeless and states he was found drinking beer by local gas station. Pt states he has been having abdominal pain since 1 days prior. Pt states his pain is located by his RUQ, rating the pain 10/10, constant, non- radiating, with no associated exacerbating or relieving factors. Pt has associate nausea, vomiting, polyuria and polydipsia but otherwise denies any other symptoms. Pt states he has history of DM1 and EMS has noted accu check in the 500's and pt has been out of his insulin for unknown time. Pt otherwise denies any other symptoms at this time. Time Seen by MD: 20:30 Primary Care Provider: NONE Reviewed Notes: Furniture And Bedding Inspector Notes, Medications, Allergies (see list) Allergies: Coded Allergies: Penicillin G (Verified Allergy, Unknown, 07/01/22) Penicillins (Unverified Allergy, Unknown, 07/01/22) Piperacillin (Verified Allergy, Unknown, 10/23/23) Tazobactam (Verified Allergy, Unknown, 10/23/23) Home Meds Active Scripts Metformin Hydrochloride (Metformin Hcl) 500 Mg Tab, 1 TAB PO BID for 10 Days, #20 TAB 3 Refills Prov:JEAN LEONARDO MD 12/19/24 Levofloxacin Hemihydrate (LEVOFLOXACIN) 500 Mg Tab, 1 TAB PO DAILY for 7 Days, #7 TAB Prov:JEAN LEONARDO MD 12/19/24 Sulfamethoxazole W/Trimethopri (Bactrim Ds Tablet) 1 Tab Tb, 1 TAB PO BID for 10 Days, #20 TAB Prov:ERIN PADILLA 11/22/24 Oseltamivir Phosphate (Tamiflu) 75 Mg Cap, 75 MG PO BID for 4 Days, #8 CAP Prov:ANUJA MELENDEZ MD 11/15/24 Insulin Glargine (Lantus) 100 Unit/Ml Inj, 20 UNIT SC BID, #1000 UNITS Prov:ANUJA MELENDEZ MD 11/15/24 Oseltamivir Phosphate (Tamiflu) 75 Mg Cap, 1 CAP PO BID for 5 Days, #10 CAP Prov:SANDIP ALEGRIA MD 11/13/24 Insulin Glargine (Lantus Solostar) 100 Unit/Ml Inj, 30 UNITS SC BID for 30 Days, #1 INJ 5 Refills Prov:EDGARDO SILVERIO MD 11/07/24 Insulin Regular (Human) (Novolin R) 100 Unit/Ml Inj, 10 UNITS SC ACHS for 30 Days, #3 UNITS 5 Refills Prov:EDGARDO SILVERIO MD 11/07/24 Insulin Syringes (Disposable) (Bd Insulin Syringe Luer-L) 1 Ml Mis, ML XX 6XD, #120 3 Refills Prov:EDGARDO SILVERIO MD 11/07/24 Insulin Syringe/Needle U-100 (ADVOCATE INSULIN SYRINGE/) 0.5 Mg/31 G Mis, APPLIC XX, #100 Use as directed Prov:EDGARDO SILVERIO MD 11/07/24 Insulin Syringe/Needle U-100 (ADVOCATE INSULIN SYRINGE/) 1 Ml/31 G Mis, ML XX TID PRN, #100 3 Refills use for insulin administration Prov:EDGARDO SILVERIO MD 11/07/24 Blood Glucose Monitoring Suppl (D-Care Glucometer Kit/Glu W/Device) 1 Kit Kit, KIT SC 5XD PRN, #1 1 Refill please check serum glucose before each meal. Prov:EDGARDO SILVERIO MD 11/07/24 Information Source: Patient, Emergency Med Personnel Mode of Arrival: EMS Brought in by: EMS Timing: Days Duration: Since onset Prehospital treatment: None Quality: Aching Vomitus: Food Particles Stool: Normal Severity: Moderate Recent: Ingestion of ETOH Recent Hx of: Diabetes Pain Location: RUQ Modifying Factors: Nothing Associated sign and symptoms: Nausea, Vomiting, Abdominal Pain, Other (polydipsia and polyuria) Past Medical History PAST MEDICAL HISTORY: Anxiety, Depression, DM, NE Surgical History: Denies all surgeries Family History Family History: Reviewed,noncontributory to illness, Family hx of DM Social History Smoker: Cigarettes Alcohol: Heavy Drugs: Methamphetamine Lives In: Homeless Constitutional: denies: chills, diaphoresis, fatigue, fever, malaise, sweats, weakness, others EENTM: denies: blurred vision, double vision, ear bleeding, ear discharge, ear drainage, ear pain, ear ringing, eye pain, eye redness, hearing loss, mouth pain, mouth swelling, nasal discharge, nose bleeding, nose congestion, nose pain, photophobia, tearing, throat pain, throat swelling, voice changes, others Respiratory: denies: cough, hemoptysis, orthopnea, SOB at rest, shortness of breath, SOB with excertion, stridor, wheezing, others Cardiovascular: denies: chest pain, dizzy spells, diaphoresis, Dyspnea on exertion, edema, irregular heart beat, left arm pain, lightheadedness, palpitations, PND, syncope, others Gastrointestinal: reports: abdominal pain, nausea, vomiting; denies: abdomen distended, blood streaked bowels, constipated, diarrhea, dysphagia, difficulty swallowing, hematemesis, melena, poor appetite, poor fluid intake, rectal bleeding, rectal pain, others Genitourinary: denies: burning, dysuria, flank pain, frequency, hematuria, incontinence, penile discharge, penile sore, pain, testicle pain, testicle swelling, urgency, others Neurological: denies: dizziness, fainting, headache, left sided numbness, left sided weakness, numbness, paresthesia, pre-existing deficit, right sided numbness, right sided weakness, seizure, speech problems, tingling, tremors, weakness, others Musculoskeletal: denies: back pain, gout, joint pain, joint swelling, muscle pain, muscle stiffness, neck pain, others Integumetry: denies: bruises, change in color, change in hair/nails, dryness, laceration, lesions, lumps, rash, wounds, others Allergic/Immunocompromised: denies: Difficulty Healing, Frequent Infections, Hives, Itching, others Hematologic/Lymphatic: denies: anemia, blood clots, easy bleeding, easy bruising, swollen glands, others Endocrine: denies: excessive hunger, excessive sweating, excessive thirst, excessive urination, flushing, intolerance to cold, intolerance to heat, unexplained weight gain, unexplained weight loss, others Psychiatric: denies: anxiety, bipolar disorder, depression, hopeless, panic disorder, schizophrenia, sleepless, suicidal, others All Other Systems: Reviewed and Negative Physical Exam General Appearance: Moderate Distress HEENT: Normal ENT Inspection, Pharynx Normal, TMs Normal Neck: Full Range of Motion, Non-Tender, Normal, Normal Inspection Respiratory: Chest Non-Tender, Lungs Clear, No Accessory Muscle Use, No Respiratory Distress, Normal Breath Sounds Cardiovascular: No Edema, No JVD, No Murmur, No Gallop, Normal Peripheral Pulses, Regular Rate/Rhythm Breast Exam: Deferred Gastrointestinal: No Organomegaly, Non Tender, No Pulsatile Mass, Normal Bowel Sounds, Soft Genitalia: Deferred Pelvic: Deferred Rectal: Deferred Extremities: No calf tenderness, Normal capillary refill, Normal inspection, Normal range of motion, Non-tender, No pedal edema Musculoskeletal : Apperance: Normal 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 Was a procedure done?: No GI differential Dx Differential Diagnosis: Cholecystitis, Constipation, Gastritis/PUD, Gastroenteritis, Pancreatitis, Dehydration, Electrolyte Imbalance, Food Poisoning, Bacterial, Viral Other Differential Diagnosis DKA, uncontrolled DM, ETOH intoxication X-Ray, Labs, Meds, VS Vital Signs Date Time Temp Pulse Resp B/P (MAP) Pulse Ox O2 Delivery O2 Flow Rate FiO2 03/12/25 21:35 97.9 92 16 119/76 (90) 95 97.9 03/12/25 21:35 92 16 95 Room Air* 0 21 03/12/25 20:30 99.1 81 24 134/86 (102) 99 99.1 Lab Test 03/12/25 21:27 03/12/25 20:41 03/12/25 20:38 Range/Units Urine Color Light-yellow Yellow Urine Clarity Clear Clear Urine pH 6.0 5.0-9.0 Urine Specific [place] 1.040 H 1.001-1.035 Urine Protein Negative Negative Urine Ketones 2+ H Negative Urine Blood Negative Negative /uL Urine Nitrite Negative Negative Urine Bilirubin Negative Negative Urine Urobilinogen Normal Negative mg/dL Urine Leukocyte Esterase Negative Negative /uL Urine RBC <1 0 - 3 /hpf Urine Microscopic WBC 0-3 /HPF Urine Squamous Epithelial Cells Few <5 /hpf Urine Bacteria None seen None Seen /hpf Urine Glucose 4+ H Normal mg/dL Blood Gas Specimen Type Arterial Blood Gas Sample Site Right radial Blood Gas Patient Temperature 37.0 Arterial Blood Date Drawn [id number] Arterial Blood pH 7.403 7.350-7.450 Arterial Blood Partial Pressure CO2 37.3 35.0-48.0 mmHg Arterial Blood Partial Pressure O2 81.0 L 83.0-108.0 mmHg Arterial Blood HCO3 22.7 21.0-28.0 mmol/L Arterial Blood Oxygen Saturation 94.9 94.0-98.0 % Arterial Blood Base Excess -1.5 -2.0-3.0 mmol/L Arterial Blood Oxyhemoglobin 93.5 L 94.0-98.0 % Arterial Blood Carboxyhemoglobin 0.8 0.5-1.5 % Arterial Blood Methemoglobin 0.7 0.0-1.5 % Arden Test Yes Blood Gas Total Hemoglobin 15.80 13.5-17.5 g/dL Blood Gas Modality Room air FiO2 % 21.0 White Blood Count 4.5 4.4-10.8 10^3/uL Red Blood Count 4.86 4.5-5.90 10^6/uL Hemoglobin 15.6 13.5-17.5 g/dL Hematocrit 44.2 41.0-53.0 % Mean Corpuscular Volume 90.9 80.0-100.0 fL Mean Corpuscular Hemoglobin 32.0 28.0-32.0 pg Mean Corpuscular Hemoglobin Concent 35.2 32.0-36.0 g/dL Red Cell Distribution Width 13.3 11.8-14.3 % Platelet Count 227 140-450 10^3/uL Mean Platelet Volume 8.3 6.9-10.8 fL Neutrophils (%) (Auto) 46.3 37.0-80.0 % Lymphocytes (%) (Auto) 38.4 10.0-50.0 % Monocytes (%) (Auto) 12.3 H 0.0-12.0 % Eosinophils (%) (Auto) 1.9 0.0-7.0 % Basophils (%) (Auto) 1.1 0.0-2.0 % Neutrophils # (Auto) 2.1 1.6-8.6 10 ^3/uL Lymphocytes # (Auto) 1.7 0.4-5.4 10 ^3/uL Monocytes # (Auto) 0.6 0-1.3 10 ^3/uL Eosinophils # (Auto) 0.1 0-0.8 10 ^3/uL Basophils # (Auto) 0 0-0.2 10 ^3/uL Nucleated Red Blood Cells 0.0 % Sodium Level 133 L 136-145 mmol/L Potassium Level 4.1 3.5-5.1 mmol/L Chloride Level 93 L 98-107 mmol/L Carbon Dioxide Level 24 20-31 mmol/L Anion Gap 16 H 5-15 Blood Urea Nitrogen 13 9-23 mg/dL Creatinine 1.11 0.700-1.30 mg/dL Glomerular Filtration Rate Calc 91 >90 mL/min BUN/Creatinine Ratio 11.7 10.0-20.0 Serum Glucose 491 *H 74-106 mg/dL Calcium Level 9.4 8.7-10.4 mg/dL Beta-Hydroxybutyric Acid 1.873 H < 0.4 mmol/L Current Medications Medications (Trade) Dose Ordered Sig/Toño Route Start Time Stop Time Status Last Admin Sodium Chloride 1,000 ml @ 1,000 mls/hr Q1H ONCE IV 03/12/25 20:30 03/12/25 21:29 DC 03/12/25 21:15 Insulin Human Regular (InsuLIN R) 5 units ONCE ONCE IV 03/12/25 20:30 03/12/25 20:31 DC 03/12/25 21:30 IV Hep-Lock was established The patient was given 1 L bolus of normal saline The patient was significantly hyperglycemic so was given insulin 5 units IV push The serum glucose is 492 The chemistry panel is within normal limits The patient was CBC is within normal limits An ABG shows a pH of 7.0 not consistent with DKA At this time With the patient was glucose but the patient was being admitted at this time Images Reviewed?: Images reviewed and evaluated by me Time of 1ST Reevaluation: 21:00 Reevaluation 1ST: Unchanged Patient Education/Counseling: Diagnosis, Treatment, Prognosis Family Education/Counseling: No Family Present Additional Information -Reviewed patient's previous visit(s): - The following tests were ordered, and results were reviewed by me: cbc, ua, b mp, acetone, ABG-w CO-OX, ekg x 1, - Additional information was gathered from interviewing the following independent Historian: patient and EMS - I reviewed and agreed with the following test results read by other provider: none - I discussed treatments and results with medical personnel and: patient Comprehensive systems review obtained and negative except for what is stated in the HPI. Departure 1 Departure Time of Disposition: 22:06 Impression: Primary Impression: Uncontrolled diabetes mellitus Qualified Codes: E13.65 - Other specified diabetes mellitus with hyperglycemia Disposition: ADMITTED INPATIENT Admit to: Tele Condition: Fair Critical Care Note Critical Care Time?: No Stability Stability form required: Yes Unstable for transfer: Telemetry monitoring (Telemetry monitoring required), ED Physician Assesment (Clinical assesment) Heart Score Heart Score: Heart Score Response (Comments) Value History N/A 0 EKG N/A 0 Age N/A 0 Risk Factors N/A 0 Troponin N/A 0 Total 0 I personally scribed for JACKY COVINGTON MD ([email or web address]) on 03/12/25 at 20:33. Electronically submitted by Nickie Novak ([email or web address]). I personally scribed for JACKY COVINGTON MD ([email or web address]) on 03/12/25 at 20:42. Electronically submitted by Nickie Novak ([email or web address]). JACKY COVINGTON MD Mar 12, 2025 20:33
[2025-03-12 20:50] LABS: Base Excess -1.5 mmol/L (-2.0-3.0)
[2025-03-12 20:54] LABS: Basophils # (auto) 0 10 ^3/uL (0-0.2); Basophils % (auto) 1.1 % (0.0-2.0); Eosinophils # (auto) 0.1 10 ^3/uL (0-0.8); Eosinophils % (auto) 1.9 % (0.0-7.0); Hematocrit 44.2 % (41.0-53.0); Hemoglobin 15.6 g/dL (13.5-17.5); Lymphocytes # (auto) 1.7 10 ^3/uL (0.4-5.4); Lymphocytes % (auto) 38.4 % (10.0-50.0); Mean Corpuscular Hgb Conc. 35.2 g/dL (32.0-36.0); Mean Corpuscular Volume 90.9 fL (80.0-100.0); Monocytes # (auto) 0.6 10 ^3/uL (0-1.3); Monocytes % (auto) 12.3 % (0.0-12.0); Neutrophils # (auto) 2.1 10 ^3/uL (1.6-8.6); Neutrophils % (auto) 46.3 % (37.0-80.0); Platelet Count (auto) 227 10^3/uL (140-450); Red Blood Cells 4.86 10^6/uL (4.5-5.90); Red Cell Distribution Width 13.3 % (11.8-14.3); White Blood Cell 4.5 10^3/uL (4.4-10.8)
[2025-03-12 20:58] LABS: Potassium 4.1 mmol/L (3.5-5.1)
[2025-03-12 20:59] LABS: Anion Gap 16 (5-15); Calcium 9.4 mg/dL (8.7-10.4); Carbon Dioxide 24 mmol/L (20-31)
[2025-03-12 21:04] LABS: BUN/Creatinine Ratio 11.7 (10.0-20.0); Blood Urea Nitrogen 13 mg/dL (9-23); Chloride 93 mmol/L (98-107); Sodium 133 mmol/L (136-145)
[2025-03-12 21:08] LABS: Glucose 491 mg/dL (74-106)
[2025-03-12] MEDS: SODIUM CHLORIDE 0.9% 1,000 ML IV ONE (21:15)
[2025-03-12] MEDS: InsuLIN REG 1unit/0.01ml Soln (100units/ml) IV ONE (21:30)
[2025-03-12 21:35] VITALS: PULSE 92; RESP 16; O2SAT 95
[2025-03-12 21:44] LABS: Urine Bacteria None Seen /hpf (None Seen)
[2025-03-12 21:57] LABS: Urine Blood Negative /uL (Negative); Urine Clarity Clear (Clear); Urine Color Light-Yellow (Yellow); Urine Protein, UAD Negative (Negative); Urine Squamous Epithelial Cell FEW /hpf (<5); Urine Urobilinogen Normal (Negative)
--- NOTE | 2025-03-12 22:28 | DVH ---
XY CHEST TWO VIEWS ROUTINE CLINICAL HISTORY: weak COMPARISON: XY CHEST TWO VIEWS ROUTINE on DOS: 04/08/24, CXR2 on DOS: 04/19/22 TECHNIQUE: Frontal and lateral view of the chest was obtained FINDINGS: Lines and Tubes: None Lungs: In comparison with 11/12/2024 there is decreased inspiratory effort. Pleura: No effusion. No pneumothorax. Cardiomediastinal contours: Unremarkable Bones: No acute osseous abnormality. IMPRESSION: 1. No acute cardiopulmonary disease.
--- NOTE | 2025-03-12 23:21 | DVHHPRES ---
History of Present Illness Resident Creating Document: NICO MCKINLEY History of Present Illness Mr. Gutierrez is a 30-year-old male with past medical history of diabetes type 1 since 2020 on Lantus 15 units and Humalog who presents to the ER with a chief complaint of intractable nausea and vomiting along with the abdominal pain for the past day. Patient reports that his insulin recently and they that he did not get any refills, does not have a PCP and is homeless. Says that he took his friends metformin for the past couple of days. Patient started throwing up and could not keep anything down. Today he felt too weak and therefore decided to check into the ER. Patient drinks 3-4 beers every day in his last beer was on the morning of the admission. Denies any hallucination/delusion anxiety at this time. Also reports chest pain which is pressure type, unrelated to exertion, associated with shortness of breaths and nausea. Located in left upper quadrant and radiates to the jaw. Past medical history: Diabetes type 1 since 2020 Home medication: Lantus and Humalog Social history: Homeless, smokes 5 cigarettes a day for the past 4 years, drinks 3-4 beers a day for the past 4 years, denies illicit drug use Patient seen and examined in the ER. IV insulin started. Tropes were unremarkable. Smoke: <1 pack per day ALCOHOL: heavy Drugs: None Lives: Homeless Review of Systems Constitutional: Yes: Chills, Weakness Respiratory: Cough Cardiovascular: Chest Pain Gastrointestinal: Nausea, Vomiting Genitourinary: Frequency Allergies: Coded Allergies: Penicillin G (Verified Allergy, Unknown, 07/01/22) Penicillins (Unverified Allergy, Unknown, 07/01/22) Piperacillin (Verified Allergy, Unknown, 10/23/23) Tazobactam (Verified Allergy, Unknown, 10/23/23) Exam Vital Signs Vital Signs Date Time Temp Pulse Resp B/P (MAP) Pulse Ox O2 Delivery O2 Flow Rate FiO2 03/12/25 22:09 81 03/12/25 21:35 97.9 16 119/76 (90) 95 97.9 03/12/25 21:35 Room Air* 0 21 Exam Young male patient lying in bed, in no acute distress General: Afebrile, palor, mucosae are moist Cardiovascular: Regular S1 and S2. No murmurs, gallops or rubs. No JVD elevation. No pedal edema Respiratory: Normal B/L air entry on room air. Clear lung sounds on auscultation Abdomen: Soft, nontender, nondistended, normoactive bowel sounds, no rebound tenderness, no organomegaly, no masses Genitourinary: Deferred MSK/skin: Mobilizes 4 limbs. Skin is dry and warm Neurological: No motor, no sensitive deficits, normal speech. Pupils are isocoric and reactive. Psych/Mental Status: A/Ox3 Labs/Xrays Labs Test 03/12/25 21:27 03/12/25 20:41 03/12/25 20:38 Range/Units Urine Color Light-yellow Yellow Urine Clarity Clear Clear Urine pH 6.0 5.0-9.0 Urine Specific [place] 1.040 H 1.001-1.035 Urine Protein Negative Negative Urine Ketones 2+ H Negative Urine Blood Negative Negative /uL Urine Nitrite Negative Negative Urine Bilirubin Negative Negative Urine Urobilinogen Normal Negative mg/dL Urine Leukocyte Esterase Negative Negative /uL Urine RBC <1 0 - 3 /hpf Urine Microscopic WBC 0-3 /HPF Urine Squamous Epithelial Cells Few <5 /hpf Urine Bacteria None seen None Seen /hpf Urine Glucose 4+ H Normal mg/dL Blood Gas Specimen Type Arterial Blood Gas Sample Site Right radial Blood Gas Patient Temperature 37.0 Arterial Blood Date Drawn [id number] Arterial Blood pH 7.403 7.350-7.450 Arterial Blood Partial Pressure CO2 37.3 35.0-48.0 mmHg Arterial Blood Partial Pressure O2 81.0 L 83.0-108.0 mmHg Arterial Blood HCO3 22.7 21.0-28.0 mmol/L Arterial Blood Oxygen Saturation 94.9 94.0-98.0 % Arterial Blood Base Excess -1.5 -2.0-3.0 mmol/L Arterial Blood Oxyhemoglobin 93.5 L 94.0-98.0 % Arterial Blood Carboxyhemoglobin 0.8 0.5-1.5 % Arterial Blood Methemoglobin 0.7 0.0-1.5 % Arden Test Yes Blood Gas Total Hemoglobin 15.80 13.5-17.5 g/dL Blood Gas Modality Room air FiO2 % 21.0 White Blood Count 4.5 4.4-10.8 10^3/uL Red Blood Count 4.86 4.5-5.90 10^6/uL Hemoglobin 15.6 13.5-17.5 g/dL Hematocrit 44.2 41.0-53.0 % Mean Corpuscular Volume 90.9 80.0-100.0 fL Mean Corpuscular Hemoglobin 32.0 28.0-32.0 pg Mean Corpuscular Hemoglobin Concent 35.2 32.0-36.0 g/dL Red Cell Distribution Width 13.3 11.8-14.3 % Platelet Count 227 140-450 10^3/uL Mean Platelet Volume 8.3 6.9-10.8 fL Neutrophils (%) (Auto) 46.3 37.0-80.0 % Lymphocytes (%) (Auto) 38.4 10.0-50.0 % Monocytes (%) (Auto) 12.3 H 0.0-12.0 % Eosinophils (%) (Auto) 1.9 0.0-7.0 % Basophils (%) (Auto) 1.1 0.0-2.0 % Neutrophils # (Auto) 2.1 1.6-8.6 10 ^3/uL Lymphocytes # (Auto) 1.7 0.4-5.4 10 ^3/uL Monocytes # (Auto) 0.6 0-1.3 10 ^3/uL Eosinophils # (Auto) 0.1 0-0.8 10 ^3/uL Basophils # (Auto) 0 0-0.2 10 ^3/uL Nucleated Red Blood Cells 0.0 % Sodium Level 133 L 136-145 mmol/L Potassium Level 4.1 3.5-5.1 mmol/L Chloride Level 93 L 98-107 mmol/L Carbon Dioxide Level 24 20-31 mmol/L Anion Gap 16 H 5-15 Blood Urea Nitrogen 13 9-23 mg/dL Creatinine 1.11 0.700-1.30 mg/dL Glomerular Filtration Rate Calc 91 >90 mL/min BUN/Creatinine Ratio 11.7 10.0-20.0 Serum Glucose 491 *H 74-106 mg/dL Calcium Level 9.4 8.7-10.4 mg/dL Beta-Hydroxybutyric Acid 1.873 H < 0.4 mmol/L Plasma/Serum Blood Alcohol 215.6 H <10 mg/dL Assessment/Plan Assessment/Plan Probable diabetic ketoacidosis and underlying uncontrolled diabetes type 1 - A1c pending Chest pain, r/o acs Noncompliant to medication Chronic alcohol use Risk of alcoholic withdrawal. Ketoacidosis Homelessness Amphetamiine use dependence Plan NPO, IV insulin drip, Lantus 15 units daily IV banana bag switched to D5half NS given serum glucose less than 200 thiamine, folic acid, multivitamin supplemented Consulted Librium if patient become restless or anxious. Troponin BNP [facility] director of clinical services consult for homelessness and PCP Plan discussed with patient in which all questions have been answered Goals of care discussed for the patient for more than 20 minutes, full code status Case discussed with Dr. Douglas Plan discussed with: Patient My Orders Orders - NICO MCKINLEY Procedure Category Date Status Time Admit ADMIT 03/12/25 Verified 23:20 Nitroglycerin PHA 03/12/25 Verified Sublingual (Ntrostat 23:30 Banana Bag Ns PHA 03/12/25 Verified 23:30 Date of Service: Mar 12, 2025 Billing Provider: FLEX DOUGLAS MD Common Visit Codes: [id number] INP/OBS CARE (HIGH) NICO MCKINLEY Mar 12, 2025 23:21 FLEX DOUGLAS MD Mar 13, 2025 11:00
[2025-03-12] MEDS ORDERED: NITROGLYCERIN 0.4 MG SL TAB SL PRN (23:30)
[2025-03-13] MEDS ORDERED: ONDANSETRON HCL 4 MG/2 ML VIAL IV PRN
[2025-03-13] MEDS ORDERED: ACETAMINOPHEN 500 MG TAB or CAP PO PRN
[2025-03-13] MEDS ORDERED: HYDROcodone-ACET 5/325MG TAB PO PRN
[2025-03-13] MEDS ORDERED: DEXTROSE (50%) 50ML SYRG IV PRN ×3 (00:15→10:00)
[2025-03-13] MEDS: MULTIPLE VITAMIN TAB PO ONE (00:26)
[2025-03-13] MEDS: THIAMINE 100mg/ml INJ (200mg/2ml VIAL) IV ONE (00:27)
[2025-03-13 00:33] LABS: Phencyclidine Screen, Urine Neg (NEGATIVE)
[2025-03-13 00:34] LABS: Amphetamine Screen, Urine Pos (NEGATIVE); Barbiturate Scree,Urine Neg (NEGATIVE); Benzodiazephine Screen, Urine Neg (NEGATIVE); Cannabinoid Screen, Urine Neg (NEGATIVE); Cocaine Screen, Urine Neg (NEGATIVE); Opiate Scree,Urine Neg (NEGATIVE)
[2025-03-13] MEDS: INSULIN DRIP 100 UNIT/100ML 100 ML IV SCH (01:03)
[2025-03-13] MEDS: INSULIN LANTUS (GLARGINE) 1 /0.01ml (100units/ml) SC ONE (01:07)
[2025-03-13] MEDS: ACCU-CHEK COMFORT CURVE STRIP VI SCH ×3 (01:39→12:00)
[2025-03-13 01:50] LABS: Chloride 103 mmol/L (98-107); Potassium 3.7 mmol/L (3.5-5.1); Sodium 138 mmol/L (136-145)
[2025-03-13 01:51] LABS: Anion Gap 12 (5-15); Carbon Dioxide 23 mmol/L (20-31)
[2025-03-13 01:52] LABS: Calcium 8.3 mg/dL (8.7-10.4)
[2025-03-13 01:56] LABS: BUN/Creatinine Ratio 15.7 (10.0-20.0); Blood Urea Nitrogen 11 mg/dL (9-23)
[2025-03-13 01:57] LABS: Glucose 244 mg/dL (74-106)
--- NOTE | 2025-03-13 06:47 | ECG ---
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
[2025-03-13] MEDS: InsuLIN REG 1unit/0.01ml Soln (100units/ml) SC SCH ×2 (07:00→13:13)
[2025-03-13 08:00] VITALS: TEMP 98.7
[2025-03-13 08:21] LABS: Anion Gap 9 (5-15); Carbon Dioxide 28 mmol/L (20-31); Chloride 104 mmol/L (98-107); Potassium 3.9 mmol/L (3.5-5.1); Sodium 141 mmol/L (136-145)
[2025-03-13 08:24] LABS: Calcium 8.6 mg/dL (8.7-10.4)
[2025-03-13 08:27] LABS: BUN/Creatinine Ratio 15.7 (10.0-20.0); Blood Urea Nitrogen 11 mg/dL (9-23); Triglycerides 74 mg/dL (< 150)
[2025-03-13 08:28] LABS: Cholesterol 152 mg/dL (< 200); LDL Cholesterol 55 mg/dL (< 100); Magnesium 1.8 mg/dL (1.6-2.6)
[2025-03-13 08:29] LABS: Phosphorus 3.2 mg/dL (2.4-5.1)
[2025-03-13 08:32] LABS: Glucose 68 mg/dL (74-106); HDL Cholesterol 84 mg/dL (40-59)
[2025-03-13 08:43] LABS: INR 1.06 (0.9-1.15); Partial Thromboplastin Time 27.7 SEC (24.5-34.5); Prothrombin Time 11.2 sec (9.3-11.8)
[2025-03-13] MEDS ORDERED: LORazepam 2MG/ML-1ML VIAL IV PRN (08:45)
[2025-03-13] MEDS: D5W/SOD CHL 0.45% 1,000 ML IV SCH (09:37)
[2025-03-13] MEDS: FOLIC ACID 1 MG TAB PO SCH (10:14)
[2025-03-13] MEDS: MULTIPLE VITAMIN TAB PO SCH (10:14)
[2025-03-13 13:56] LABS: Chloride 101 mmol/L (98-107); Potassium 4.6 mmol/L (3.5-5.1)
[2025-03-13 13:57] LABS: Anion Gap 7 (5-15); Carbon Dioxide 25 mmol/L (20-31)
[2025-03-13 13:58] LABS: Calcium 8.5 mg/dL (8.7-10.4); Sodium 133 mmol/L (136-145)
[2025-03-13 14:00] VITALS: BP 111/76; PULSE 73; RESP 14; O2SAT 96
[2025-03-13 14:02] LABS: BUN/Creatinine Ratio 19.1 (10.0-20.0); Blood Urea Nitrogen 13 mg/dL (9-23)
[2025-03-13 14:04] LABS: Glucose 294 mg/dL (74-106)
--- NOTE | 2025-03-13 14:48 | DVHDSRES ---
Discharge Summary Date of Admission Resident Creating Document: NICO MCKINLEY RESIDENT Mar 12, 2025 at 23:20 Date of Discharge: Mar 13, 2025 Admitting Diagnosis DKA Labs/Diagnostic Data: Laboratory Results Test 03/13/25 13:37 03/13/25 12:37 03/13/25 08:20 03/13/25 07:33 Sodium Level 133 mmol/L (136-145) Potassium Level 4.6 mmol/L (3.5-5.1) Chloride Level 101 mmol/L (98-107) Carbon Dioxide Level 25 mmol/L (20-31) Anion Gap 7 (5-15) Blood Urea Nitrogen 13 mg/dL (9-23) Creatinine 0.68 mg/dL (0.700-1.30) Glomerular Filtration Rate Calc 127 mL/min (>90) BUN/Creatinine Ratio 19.1 (10.0-20.0) Serum Glucose 294 mg/dL (74-106) Calcium Level 8.5 mg/dL (8.7-10.4) POC Glucose 263 mg/dl (70-106) Prothrombin Time 11.2 sec (9.3-11.8) Prothrombin Time INR 1.06 (0.9-1.15) Activated Partial Thromboplast Time 27.7 SEC (24.5-34.5) Hemoglobin A1c 12.7 % A1C (<5.7) Phosphorus Level 3.2 mg/dL (2.4-5.1) Magnesium Level 1.8 mg/dL (1.6-2.6) Triglycerides Level 74 mg/dL (< 150) Cholesterol Level 152 mg/dL (< 200) LDL Cholesterol 55 mg/dL (< 100) HDL Cholesterol 84 mg/dL (40-59) Vitamin B12 Level 477 pg/mL (211-911) Vitamin D 25-Hydroxy 23.1 ng/mL (30.0-100) Test 03/13/25 01:30 03/12/25 21:27 03/12/25 20:41 03/12/25 20:38 Thyroid Stimulating Hormone (TSH) 0.64 uIU/mL (0.55-4.78) Urine Color Light-yellow (Yellow) Urine Clarity Clear (Clear) Urine pH 6.0 (5.0-9.0) Urine Specific Moody 1.040 (1.001-1.035) Urine Protein Negative (Negative) Urine Ketones 2+ (Negative) Urine Blood Negative /uL (Negative) Urine Nitrite Negative (Negative) Urine Bilirubin Negative (Negative) Urine Urobilinogen Normal mg/dL (Negative) Urine Leukocyte Esterase Negative /uL (Negative) Urine RBC <1 /hpf (0 - 3) Urine Microscopic WBC /HPF (0-3) Urine Squamous Epithelial Cells Few /hpf (<5) Urine Bacteria None seen /hpf (None Seen) Urine Microalbumin < 3.0 mg/L (<30.0) Urine Glucose 4+ mg/dL (Normal) Urine Opiates Screen Neg (NEGATIVE) Urine Fentanyl Screen Neg (NEGATIVE) Urine Barbiturates Screen Neg (NEGATIVE) Urine Phencyclidine Screen Neg (NEGATIVE) Urine Amphetamines Screen Pos (NEGATIVE) Urine Benzodiazepines Screen Neg (NEGATIVE) Urine Cocaine Screen Neg (NEGATIVE) Urine Cannabinoids Screen Neg (NEGATIVE) Blood Gas Specimen Type Arterial Blood Gas Sample Site Right radial Blood Gas Patient Temperature 37.0 Arterial Blood Date Drawn [id number] Arterial Blood pH 7.403 (7.350-7.450) Arterial Blood Partial Pressure CO2 37.3 mmHg (35.0-48.0) Arterial Blood Partial Pressure O2 81.0 mmHg (83.0-108.0) Arterial Blood HCO3 22.7 mmol/L (21.0-28.0) Arterial Blood Oxygen Saturation 94.9 % (94.0-98.0) Arterial Blood Base Excess -1.5 mmol/L (-2.0-3.0) Arterial Blood Oxyhemoglobin 93.5 % (94.0-98.0) Arterial Blood Carboxyhemoglobin 0.8 % (0.5-1.5) Arterial Blood Methemoglobin 0.7 % (0.0-1.5) Arden Test Yes Blood Gas Total Hemoglobin 15.80 g/dL (13.5-17.5) Blood Gas Modality Room air FiO2 % 21.0 White Blood Count 4.5 10^3/uL (4.4-10.8) Red Blood Count 4.86 10^6/uL (4.5-5.90) Hemoglobin 15.6 g/dL (13.5-17.5) Hematocrit 44.2 % (41.0-53.0) Mean Corpuscular Volume 90.9 fL (80.0-100.0) Mean Corpuscular Hemoglobin 32.0 pg (28.0-32.0) Mean Corpuscular Hemoglobin Concent 35.2 g/dL (32.0-36.0) Red Cell Distribution Width 13.3 % (11.8-14.3) Platelet Count 227 10^3/uL (140-450) Mean Platelet Volume 8.3 fL (6.9-10.8) Neutrophils (%) (Auto) 46.3 % (37.0-80.0) Lymphocytes (%) (Auto) 38.4 % (10.0-50.0) Monocytes (%) (Auto) 12.3 % (0.0-12.0) Eosinophils (%) (Auto) 1.9 % (0.0-7.0) Basophils (%) (Auto) 1.1 % (0.0-2.0) Neutrophils # (Auto) 2.1 10 ^3/uL (1.6-8.6) Lymphocytes # (Auto) 1.7 10 ^3/uL (0.4-5.4) Monocytes # (Auto) 0.6 10 ^3/uL (0-1.3) Eosinophils # (Auto) 0.1 10 ^3/uL (0-0.8) Basophils # (Auto) 0 10 ^3/uL (0-0.2) Nucleated Red Blood Cells 0.0 % Urine Osmolality 813 mOsm/kg Serum Osmolality 363 mOsm/kg (278-298) Beta-Hydroxybutyric Acid 1.873 mmol/L (< 0.4) Plasma/Serum Blood Alcohol 215.6 mg/dL (<10) Other Laboratory Tests 03/13/25 13:37 03/12/25 20:38 Brief Hx & Hospital Course: Mr. Gutierrez is a 30-year-old male with past medical history of diabetes type 1 since 2020 on Lantus 15 units and Humalog who presents to the ER with a chief complaint of intractable nausea and vomiting along with the abdominal pain for the past day. Patient reports that his insulin recently and they that he did not get any refills, does not have a PCP and is homeless. Says that he took his friends metformin for the past couple of days. Patient started throwing up and could not keep anything down. Today he felt too weak and therefore decided to check into the ER. Patient drinks 3-4 beers every day in his last beer was on the morning of the admission. Denies any hallucination/delusion anxiety at this time. Also reports chest pain which is pressure type, unrelated to exertion, associated with shortness of breaths and nausea. Located in left upper quadrant and radiates to the jaw. Past medical history: Diabetes type 1 since 2020 Home medication: Lantus and Humalog Social history: Homeless, smokes 5 cigarettes a day for the past 4 years, drinks 3-4 beers a day for the past 4 years, denies illicit drug use Hospital course: Patient was admitted at the line of DKA, patient was started IV normal saline, insulin regular 5 units bolus, with a insulin drip 0.5 units/kg, and repleted potassium. A repeated BNP, anion gap closed, and the patient was feeling better, injection Lantus 15 units subQ given, insulin drip stopped after 2 hours, insulin regular according to sliding scale was given and the patient was started on diet and was tolerating oral intake. On 03/13/2025 at 2:53 p.m. the patient was feeling better since admission. Discharge plan discussed with the patient the patient discharged home. Discharge plan: Follow up with the PCP within 1 week of the discharge. Continue home meds Condition at Discharge: Stable Final Diagnosis/Problems List Uncontrolled diabetes type 1, with early DKA Alcoholic ketosis Ketoacidosis Anion gap metabolic acidosis Contraction alkalosis Pseudo hyponatremia Alcohol use disorder Methamphetamine use disorder Nonadherence to medication Vitamin-D deficiency Chest pain, ruled out ACS Discharge Disposition: Home Discharge Instruct/Medications Diet: Consistent carbohydrate Activity: No Restrictions, As Tolerated Follow Up/Referral: Follow up with the PCP within 1 week of the discharge. Medications: Continue home meds Discharge Statement: "Patient was advised to return to the ER or call 911 if any headaches, dizziness, shortness of breath, chest pain, abdominal pain, bleeding, fevers, or worsening of medical condition. Patient was counseled about treatment plan, medications, possible side effects, patientverbalized understanding. All questions were answered to the best of my ability. This discharge took greater then 30 minutes in planning, reviewing documentation, counseling the patient, and discussing with other team members." ASSESSMENT ASSESSMENT Assessment DKA Date of Service: Mar 13, 2025 Billing Provider: ALLIE SULLIVAN MD Common Visit Codes: 04617-BYC/OBS DISCH DAY >30min HEWADMAL,HEWAD RESDIENT Mar 13, 2025 14:48 ALLIE SULLIVAN MD Mar 15, 2025 01:08
[2025-03-13] MEDS ORDERED: InsuLIN REG 1unit/0.01ml Soln (100units/ml) SC SCH (22:00)
[2025-03-14] MEDS ORDERED: INSULIN LANTUS (GLARGINE) 1 /0.01ml (100units/ml) SC SCH (10:00)
== END 2025-03-13 15:22 | disposition home or self-care (01) | DRG 420 ==
LOC: EDBD 20:23 → ER 20:23 → OVERFLOW 23:20
PROVIDERS: ADMIT Student in an Organized Health Care Education/Training Program; ATTEND Emergency Medicine
DX: E10.10 Type 1 diabetes mellitus with ketoacidosis without coma (principal); E87.3 Alkalosis; F15.20 Other stimulant dependence, uncomplicated; F10.20 Alcohol dependence, uncomplicated; E55.9 Vitamin D deficiency, unspecified; F17.210 Nicotine dependence, cigarettes, uncomplicated; F41.9 Anxiety disorder, unspecified; Z91.148 Patient's other noncompliance with medication regimen for other reason; Z59.00 Homelessness unspecified; Z88.0 Allergy status to penicillin; I25.2 Old myocardial infarction
CPT/HCPCS: 36415; 36600; 71046; 80048; 80061; 80307; 80320; 81001; 82010; 82043; 82306; 82607; 82805; 82962; 83036; 83735; 83930; 83935; 84100; 84443; 85025; 85610; 85730; 93005; 96361; 96374; G0378; J1815

== ENCOUNTER 2025-04-15 17:43 | Inpatient (IN) | payer MEDICAID ==
[~2025-04-15] VITALS: Ht 177.8 cm; Wt 84.5 kg
[~2025-04-15 17:43] MED LIST changes: -BACDST PO; -LEVO500T91 PO; -METF-370 PO; -OSEL75CA5 PO; -TAMIFLU PO
[2025-04-15] MEDS: ONDANSETRON ODT 4 MG TAB PO ONE (18:28)
[2025-04-15] MEDS: InsuLIN REG 1unit/0.01ml Soln (100units/ml) IV ONE (18:29)
[2025-04-15] MEDS: SODIUM CHLORIDE 0.9% 1,000 ML IV ONE (18:29)
[2025-04-15 18:34] VITALS: PULSE 87; RESP 18; O2SAT 97
[2025-04-15 18:36] LABS: Basophils # (auto) 0 10 ^3/uL (0-0.2); Basophils % (auto) 1.1 % (0.0-2.0); Eosinophils # (auto) 0.1 10 ^3/uL (0-0.8); Eosinophils % (auto) 2.1 % (0.0-7.0); Hematocrit 43.8 % (41.0-53.0); Lymphocytes % (auto) 26.2 % (10.0-50.0); Mean Corpuscular Hemoglobin 31.9 pg (28.0-32.0); Mean Corpuscular Hgb Conc. 34.2 g/dL (32.0-36.0); Mean Corpuscular Volume 93.2 fL (80.0-100.0); Monocytes # (auto) 0.5 10 ^3/uL (0-1.3); Neutrophils # (auto) 2.2 10 ^3/uL (1.6-8.6); Neutrophils % (auto) 57.6 % (37.0-80.0); Nucleated Red Blood Cells % 0.2 %; Platelet Count (auto) 205 10^3/uL (140-450); Red Cell Distribution Width 13.4 % (11.8-14.3); White Blood Cell 3.8 10^3/uL (4.4-10.8)
--- NOTE | 2025-04-15 18:58 | DVH ---
CHEST RADIOGRAPH Indication: Shortness of breath Technique: Single frontal view of the chest was obtained Comparison: XY CHEST PORTABLE on DOS: 11/12/24, XY CHEST PORTABLE on DOS: 11/05/24, XY CHEST PORTABLE on DOS: 08/04/24 FINDINGS: Lines and Tubes: None Lungs: No focal consolidation. Pleura: No effusion. No pneumothorax. Cardiomediastinal contours: Unremarkable Bones: No acute osseous abnormality. IMPRESSION: 1. No acute cardiopulmonary disease. HS:Y
[2025-04-15 18:59] LABS: Albumin 4.2 g/dL (3.2-4.8); Alkaline Phosphatase 114 U/L (46-116); Anion Gap 19 (5-15); BUN/Creatinine Ratio 14.5 (10.0-20.0); Blood Urea Nitrogen 10 mg/dL (9-23); Calcium 9.6 mg/dL (8.7-10.4); Carbon Dioxide 22 mmol/L (20-31); Magnesium 1.7 mg/dL (1.6-2.6); Potassium 4.2 mmol/L (3.5-5.1); Sodium 136 mmol/L (136-145); Total Protein 6.4 g/dL (5.7-8.2)
[2025-04-15 19:00] LABS: Bilirubin, Total 0.7 mg/dL (0.2-1.0)
[2025-04-15 19:01] LABS: Alanine Aminotransferase 65 U/L (7-40); Aspartate Aminotransferase 50 U/L (13-40); Chloride 95 mmol/L (98-107); Glucose 295 mg/dL (74-106)
[2025-04-15] MEDS: INSULIN LANTUS (GLARGINE) 1 /0.01ml (100units/ml) SC ONE (20:00)
[2025-04-15] MEDS ORDERED: DEXTROSE (50%) 50ML SYRG IV PRN (20:00)
[2025-04-15] MEDS: ACCU-CHEK COMFORT CURVE STRIP VI SCH ×2 (20:35→22:00)
[2025-04-15] MEDS: INSULIN DRIP 100 UNIT/100ML 100 ML IV SCH (20:43)
[2025-04-15] MEDS ORDERED: ACCU-CHEK COMFORT CURVE STRIP VI SCH (21:00)
--- NOTE | 2025-04-15 21:19 | ED.PDOC ---
GI ASSESSMENT HPI Comments This patient is a 30-year-old homeless male who arrives to the ED today via EMS due to complaints of abdominal pain with nausea and vomiting concerns for the past several hours. Patient has a history of uncontrolled diabetes and has been seen at this facility before for DKA concerns. Patient arrives today appearing to be in another DKA state. Vital signs were stable on arrival. Chief Complaint: Nausea/Vomiting Time Seen by MD: 17:58 Primary Care Provider: NONE Reviewed Notes: Nurses Notes, Synthetic Filament Spinner Notes Allergies: Coded Allergies: Penicillin G (Verified Allergy, Unknown, 07/01/22) Penicillins (Unverified Allergy, Unknown, 07/01/22) Piperacillin (Verified Allergy, Unknown, 10/23/23) Tazobactam (Verified Allergy, Unknown, 10/23/23) Home Meds Active Scripts Insulin Glargine (Lantus) 100 Unit/Ml Inj, 20 UNIT SC BID, #1000 UNITS Prov:ANUJA MELENDEZ MD 11/15/24 Insulin Glargine (Lantus Solostar) 100 Unit/Ml Inj, 30 UNITS SC BID for 30 Days, #1 INJ 5 Refills Prov:EDGARDO SILVERIO MD 11/07/24 Insulin Regular (Human) (Novolin R) 100 Unit/Ml Inj, 10 UNITS SC ACHS for 30 Days, #3 UNITS 5 Refills Prov:EDGARDO SILVERIO MD 11/07/24 Insulin Syringes (Disposable) (Bd Insulin Syringe Luer-L) 1 Ml Mis, ML XX 6XD, #120 3 Refills Prov:EDGARDO SILVERIO MD 11/07/24 Insulin Syringe/Needle U-100 (ADVOCATE INSULIN SYRINGE/) 0.5 Mg/31 G Mis, APPLIC XX, #100 Use as directed Prov:EDGARDO SILVERIO MD 11/07/24 Insulin Syringe/Needle U-100 (ADVOCATE INSULIN SYRINGE/) 1 Ml/31 G Mis, ML XX TID PRN, #100 3 Refills use for insulin administration Prov:EDGARDO SILVERIO MD 11/07/24 Blood Glucose Monitoring Suppl (D-Care Glucometer Kit/Glu W/Device) 1 Kit Kit, KIT SC 5XD PRN, #1 1 Refill please check serum glucose before each meal. Prov:EDGARDO SILVERIO MD 11/07/24 Information Source: Patient, Emergency Med Personnel Mode of Arrival: EMS Timing: Hours Duration: Since onset Prehospital treatment: Treatment Quality: Aching, Cramping Vomitus: Bilious, Food Particles, Soft, Watery Severity: Moderate Recent: None Recent Hx of: Diabetes Pain Location: Diffuse, Epigastric Associated sign and symptoms: Nausea, Vomiting, Abdominal Pain Past Medical History PAST MEDICAL HISTORY: Anxiety, Depression, DM, CA Surgical History: Denies all surgeries Family History Family History: Reviewed,noncontributory to illness, Family hx of DM Social History Smoker: Cigarettes Alcohol: Heavy Drugs: Methamphetamine Lives In: Homeless Constitutional: reports: fatigue; denies: chills, diaphoresis, fever, malaise, sweats, weakness, others EENTM: denies: blurred vision, double vision, ear bleeding, ear discharge, ear drainage, ear pain, ear ringing, eye pain, eye redness, hearing loss, mouth pain, mouth swelling, nasal discharge, nose bleeding, nose congestion, nose pain, photophobia, tearing, throat pain, throat swelling, voice changes, others Respiratory: denies: cough, hemoptysis, orthopnea, SOB at rest, shortness of breath, SOB with excertion, stridor, wheezing, others Cardiovascular: denies: chest pain, dizzy spells, diaphoresis, Dyspnea on exertion, edema, irregular heart beat, left arm pain, lightheadedness, palpitations, PND, syncope, others Gastrointestinal: reports: abdominal pain, nausea, vomiting; denies: abdomen distended, blood streaked bowels, constipated, diarrhea, dysphagia, difficulty swallowing, hematemesis, melena, poor appetite, poor fluid intake, rectal bleeding, rectal pain, others Genitourinary: denies: burning, dysuria, flank pain, frequency, hematuria, incontinence, penile discharge, penile sore, pain, testicle pain, testicle swelling, urgency, others Neurological: denies: dizziness, fainting, headache, left sided numbness, left sided weakness, numbness, paresthesia, pre-existing deficit, right sided numbness, right sided weakness, seizure, speech problems, tingling, tremors, weakness, others Musculoskeletal: denies: back pain, gout, joint pain, joint swelling, muscle pain, muscle stiffness, neck pain, others Integumetry: denies: bruises, change in color, change in hair/nails, dryness, laceration, lesions, lumps, rash, wounds, others Allergic/Immunocompromised: denies: Difficulty Healing, Frequent Infections, Hives, Itching, others Hematologic/Lymphatic: denies: anemia, blood clots, easy bleeding, easy bruising, swollen glands, others Endocrine: denies: excessive hunger, excessive sweating, excessive thirst, excessive urination, flushing, intolerance to cold, intolerance to heat, unexplained weight gain, unexplained weight loss, others Psychiatric: denies: anxiety, bipolar disorder, depression, hopeless, panic disorder, schizophrenia, sleepless, suicidal, others Physical Exam General Appearance: Moderate Distress (Patient appears to be in moderate distress due to his belly pain, nausea and vomiting concerns. Patient is not well kempt and dirty at time of evaluation.), Normal HEENT: Normal ENT Inspection, Pharynx Normal, TMs Normal Neck: Full Range of Motion, Non-Tender, Normal, Normal Inspection Respiratory: Chest Non-Tender, Lungs Clear, No Accessory Muscle Use, No Respiratory Distress, Normal Breath Sounds Cardiovascular: No Edema, No JVD, No Murmur, No Gallop, Normal Peripheral Pulses, Regular Rate/Rhythm Breast Exam: Deferred Gastrointestinal: No Pulsatile Mass, Normal Bowel Sounds, Soft, Tenderness (Diffuse tenderness to palpation throughout epigastric region. Pain appears to be due to nausea and vomiting.) Genitalia: Deferred Pelvic: Deferred Rectal: Deferred Extremities: No calf tenderness, Normal capillary refill, Non-tender, No pedal edema Neurologic: Alert, No Motor Deficits, Normal Affect, Normal Mood, No Sensory Deficits Cerebellar Function: Normal Reflexes: Normal Skin: Dry, Normal Color, Warm Lymphatic: No Adenopathy Was a procedure done? Was a procedure done?: No GI differential Dx Differential Diagnosis: Appendicitis, Cholangitis, Cholecystitis, Constipation, Hepatitis, Pancreatitis, Diabetes/ DKA, Drug toxicity X-Ray, Labs, Meds, VS Vital Signs Date Time Temp Pulse Resp B/P (MAP) Pulse Ox O2 Delivery O2 Flow Rate FiO2 04/15/25 18:34 88 18 118/71 (87) 96 04/15/25 18:34 87 18 97 Room Air* 0 21 04/15/25 17:49 98.9 84 16 127/74 (91) 97 98.9 Lab Test 04/15/25 20:33 04/15/25 20:23 04/15/25 19:26 04/15/25 18:25 Range/Units POC Glucose 127 H 70-106 mg/dl Blood Gas Specimen Type Arterial Blood Gas Sample Site Right radial Blood Gas Patient Temperature 37.0 Arterial Blood Date Drawn [id number] Arterial Blood pH 7.429 7.350-7.450 Arterial Blood Partial Pressure CO2 37.0 35.0-48.0 mmHg Arterial Blood Partial Pressure O2 71.3 L 83.0-108.0 mmHg Arterial Blood HCO3 24.0 21.0-28.0 mmol/L Arterial Blood Oxygen Saturation 93.3 L 94.0-98.0 % Arterial Blood Base Excess 0.0 -2.0-3.0 mmol/L Arterial Blood Oxyhemoglobin 91.5 L 94.0-98.0 % Arterial Blood Carboxyhemoglobin 1.4 0.5-1.5 % Arterial Blood Methemoglobin 0.5 0.0-1.5 % Arden Test Yes Blood Gas Total Hemoglobin 14.50 13.5-17.5 g/dL Blood Gas Liter Flow 0.00 Blood Gas Modality Room air Blood Gas Spontaneous Rate 18 FiO2 % 21.0 Troponin I High Sensitivity < 3 L < 3 L </=54 ng/L White Blood Count 3.8 L 4.4-10.8 10^3/uL Red Blood Count 4.70 4.5-5.90 10^6/uL Hemoglobin 15.0 13.5-17.5 g/dL Hematocrit 43.8 41.0-53.0 % Mean Corpuscular Volume 93.2 80.0-100.0 fL Mean Corpuscular Hemoglobin 31.9 28.0-32.0 pg Mean Corpuscular Hemoglobin Concent 34.2 32.0-36.0 g/dL Red Cell Distribution Width 13.4 11.8-14.3 % Platelet Count 205 140-450 10^3/uL Mean Platelet Volume 7.8 6.9-10.8 fL Neutrophils (%) (Auto) 57.6 37.0-80.0 % Lymphocytes (%) (Auto) 26.2 10.0-50.0 % Monocytes (%) (Auto) 13.0 H 0.0-12.0 % Eosinophils (%) (Auto) 2.1 0.0-7.0 % Basophils (%) (Auto) 1.1 0.0-2.0 % Neutrophils # (Auto) 2.2 1.6-8.6 10 ^3/uL Lymphocytes # (Auto) 1.0 0.4-5.4 10 ^3/uL Monocytes # (Auto) 0.5 0-1.3 10 ^3/uL Eosinophils # (Auto) 0.1 0-0.8 10 ^3/uL Basophils # (Auto) 0 0-0.2 10 ^3/uL Nucleated Red Blood Cells 0.2 % Sodium Level 136 136-145 mmol/L Potassium Level 4.2 3.5-5.1 mmol/L Chloride Level 95 L 98-107 mmol/L Carbon Dioxide Level 22 20-31 mmol/L Anion Gap 19 H 5-15 Blood Urea Nitrogen 10 9-23 mg/dL Creatinine 0.69 L 0.700-1.30 mg/dL Glomerular Filtration Rate Calc 127 >90 mL/min BUN/Creatinine Ratio 14.5 10.0-20.0 Serum Glucose 295 H 74-106 mg/dL Calcium Level 9.6 8.7-10.4 mg/dL Magnesium Level 1.7 1.6-2.6 mg/dL Total Bilirubin 0.7 0.2-1.0 mg/dL Aspartate Amino Transferase (AST) 50 H 13-40 U/L Alanine Aminotransferase (ALT) 65 H 7-40 U/L Alkaline Phosphatase 114 46-116 U/L B-Type Natriuretic Peptide 27.15 0-100 pg/mL Total Protein 6.4 5.7-8.2 g/dL Albumin 4.2 3.2-4.8 g/dL Beta-Hydroxybutyric Acid > 4.500 H < 0.4 mmol/L Test 04/15/25 18:24 Range/Units POC Glucose 273 H 70-106 mg/dl Current Medications Medications (Trade) Dose Ordered Sig/Toño Route Start Time Stop Time Status Last Admin Ondansetron HCl (Zofran Po) 4 mg ONCE ONCE PO 04/15/25 18:15 04/15/25 18:16 DC 04/15/25 18:28 Sodium Chloride 1,000 ml @ 1,000 mls/hr Q1H ONCE IV 04/15/25 18:15 04/15/25 19:14 DC 04/15/25 18:29 Insulin Human Regular (InsuLIN R) 8 units ONCE ONCE IV 04/15/25 18:15 04/15/25 18:16 DC 04/15/25 18:29 Insulin Human (Reg)/Sodium Chloride 100 ml @ 0.5 mls/hr Q24H IV 04/15/25 20:00 04/15/25 20:43 Diagnostic Test (Pha) (Accu-Chek Comfort Curve T) 1 strip Q90MIN 04/15/25 21:00 04/15/25 20:35 X-Ray, Labs, Meds, VS Comment All studies performed the ED were evaluated by me personally. Patient's laboratories revealed an elevated glucose as well as elevated ketones and a gap of 17. Patient appears to be in DKA. DKA protocol was started. Patient will be admitted for continued management. Time of 1ST Reevaluation: 21:16 Reevaluation 1ST: Improved Consultation: PCP Patient Education/Counseling: Diagnosis, Treatment Family Education/Counseling: Diagnosis, Treatment Departure 1 Departure Time of Disposition: 21:19 Impression: Primary Impression: Diabetic keto-acidosis Disposition: ADMITTED INPATIENT Condition: Fair Discharged With: Self Critical Care Note Critical Care Time?: Yes (45 min-critical care time only) Critical care comment: Due to the high probability of a clinically significant and possibly life- threatening deterioration, the patient required my highest level of preparedness to intervene emergently and therefore, I personally provided 45 minutes of critical care time exclusive of time spent on separate billable procedures. This critical care time includes, but is not limited to, obtaining additional history, re-examination of the patient, evaluation of pulse oximetry, ordering and reviewing of studies, arrangement of an urgent treatment plan with the development of a long-term management plan as well as evaluation of patient's response to treatments, frequent reassessments and discussions with other providers. Stability Stability form required: No Heart Score Heart Score: Heart Score Response (Comments) Value History Slightly Suspicious 0 EKG Normal 0 Age <45 0 Risk Factors No known risk factors 0 Troponin Normal limit 0 Total 0 CHRISTOPHER LARKIN PAC April 15, 2025 21:19
[2025-04-15] MEDS ORDERED: HYDROcodone-ACET 5/325MG TAB PO PRN (21:45)
[2025-04-15] MEDS ORDERED: DOCUSATE SOD 100 MG CAP PO PRN (21:45)
[2025-04-15] MEDS ORDERED: LORazepam 2MG/ML-1ML VIAL IV PRN (21:45)
[2025-04-15] MEDS ORDERED: ONDANSETRON HCL 4 MG/2 ML VIAL IV PRN (21:45)
[2025-04-15] MEDS ORDERED: IBUPROFEN 600 MG TAB PO PRN (21:45)
--- NOTE | 2025-04-15 23:41 | DVHHP2 ---
History of Present Illness Reason for Visit: Diabetic keto-acidosis History of Present Illness The patient is a 30-year-old male homeless with past medical history of anxiety, depression, [place], and diabetes mellitus who presented to [facility] ED with complaint of abdominal pain. Patient reports she has been experiencing abdominal pain associated with nausea, vomiting, getting worse that prompted this visit. Patient was seen and evaluated in the ED, laboratory data shows WBC 3.8, platelets 205, sodium 136, potassium 4.2, BUN 10, creatinine 0.69, glucose 295, anion gap 19, AST 50, ALT 65, troponin 3, acetone > 4.500, blood pressure 118/71, heart rate 88, temperature 98.9 F, O2 saturation 96% on oxygen. Patient was found to be in diabetic ketoacidosis and started on insulin drip, please see medication orders section in the computer. On my assessment, patient denied chest pain, no headache, no dizziness, no diaphoresis, currently on oxygen, no nausea or vomiting at this moment, no fever, no chills. Patient was admitted for further evaluation and medical management. Past Medical History Anxiety, Depression, DM, [place] Past Surgical History Denies all surgeries Family History Reviewed, noncontributory to the management of this case. Past Social History The patient lives at home, denies smoking, alcohol or illicit drugs abuse. Review of Systems Constitutional: Yes: Weakness, Other (Fatigue); No: Fever, Chills, Sweats, Malaise Eyes: No: Pain, Vision change, Conjunctivae inflammation, Eyelid inflammation, Other, Redness ENT: No: Ear pain, Ear discharge, Nose pain, Nose discharge, Nose congestion, Mouth pain, Mouth swelling, Throat pain, Throat swelling, Other Respiratory: No: Cough, Dry, Shortness of breath, SOB with excertion, Wheezing, Hemoptysis, Pleuritic Pain, Sputum, Wheezing, Other Cardiovascular: No: Chest Pain, Palpitations, Orthopnea, Paroxysmal Noc. Dyspnea, Edema, Lt Headedness, Other Gastrointestinal: Nausea, Vomiting, Abdominal Pain; No: Diarrhea, Constipation, Melena, Hematochezia, Other Genitourinary: No Dysuria, No Frequency, No Incontinence, No Hematuria, No Retention, No Other Musculoskeletal: No: other, neck pain, shoulder pain, arm pain, back pain, hand pain, leg pain, foot pain Skin: No: Rash, Lesions, Jaundice, Bruising, Other Neurological: No: Weakness, Numbness, Incoordination, Change in speech, Confusion, Seizures, Other Allergies: Coded Allergies: Penicillin G (Verified Allergy, Unknown, 07/01/22) Penicillins (Unverified Allergy, Unknown, 07/01/22) Piperacillin (Verified Allergy, Unknown, 10/23/23) Tazobactam (Verified Allergy, Unknown, 10/23/23) Medications Current Medications Medications Dose Ordered Sig/Toño Route Start Time Stop Time Status Last Admin Dose Admin Insulin Human (Reg)/Sodium Chloride 100 ml @ 0.5 mls/hr Q24H IV 04/15/25 20:00 04/15/25 20:43 1 MLS/HR Dextrose 50 ml PRN PRN IV 04/15/25 20:00 Insulin Glargine 15 units DAILY SC 04/16/25 10:00 Ibuprofen 600 mg Q6HP PRN PO 04/15/25 21:45 Famotidine 20 mg DAILY IV 04/16/25 10:00 Lorazepam 0.5 mg Q8HP PRN IV 04/15/25 21:45 Acetaminophen/ Hydrocodone Bitart 1 tab Q4HP PRN PO 04/15/25 21:45 Ondansetron HCl 4 mg Q4HP PRN IV 04/15/25 21:45 Docusate Sodium 100 mg BIDPRN PRN PO 04/15/25 21:45 Diagnostic Test (Pha) 1 strip Q90MIN 04/15/25 21:00 Cancel Diagnostic Test (Pha) 1 strip Q90MIN 04/15/25 22:00 04/15/25 22:00 1 STRIP Exam Vital Signs Vital Signs Date Time Temp Pulse Resp B/P (MAP) Pulse Ox O2 Delivery O2 Flow Rate FiO2 04/15/25 18:34 88 18 118/71 (87) 96 04/15/25 18:34 Room Air* 0 21 04/15/25 17:49 98.9 98.9 General Appearance: Alert, Oriented X3, Cooperative, No acute distress HEENT: Atraumatic, PERRLA, EOMI, Mucous membr. moist/pink Respiratory: Clear to auscultation, Normal air movement Cardiovascular: Regular rate, Normal S1, Normal S2, No murmurs Abdominal: Normal bowel sounds, Soft, No tenderness, No hepatospenomegaly, No masses Extremities: No clubbing, No cyanosis, No edema, Normal pulses, No tenderness/swelling Skin: No rashes, No breakdown, No significant lesion Neuro: Normal speech, Normal tone, Sensation intact, Cranial nerves 3-12 NL, Reflexes 2+, Other (Generalized weakness) Psych/Mental Status: Mental status NL, Mood NL Labs/Xrays Labs Test 04/15/25 21:45 04/15/25 20:23 04/15/25 19:26 04/15/25 18:25 Range/Units POC Glucose 127 H 70-106 mg/dl Blood Gas Specimen Type Arterial Blood Gas Sample Site Right radial Blood Gas Patient Temperature 37.0 Arterial Blood Date Drawn [id number] Arterial Blood pH 7.429 7.350-7.450 Arterial Blood Partial Pressure CO2 37.0 35.0-48.0 mmHg Arterial Blood Partial Pressure O2 71.3 L 83.0-108.0 mmHg Arterial Blood HCO3 24.0 21.0-28.0 mmol/L Arterial Blood Oxygen Saturation 93.3 L 94.0-98.0 % Arterial Blood Base Excess 0.0 -2.0-3.0 mmol/L Arterial Blood Oxyhemoglobin 91.5 L 94.0-98.0 % Arterial Blood Carboxyhemoglobin 1.4 0.5-1.5 % Arterial Blood Methemoglobin 0.5 0.0-1.5 % Arden Test Yes Blood Gas Total Hemoglobin 14.50 13.5-17.5 g/dL Blood Gas Liter Flow 0.00 Blood Gas Modality Room air Blood Gas Spontaneous Rate 18 FiO2 % 21.0 Troponin I High Sensitivity < 3 L </=54 ng/L White Blood Count 3.8 L 4.4-10.8 10^3/uL Red Blood Count 4.70 4.5-5.90 10^6/uL Hemoglobin 15.0 13.5-17.5 g/dL Hematocrit 43.8 41.0-53.0 % Mean Corpuscular Volume 93.2 80.0-100.0 fL Mean Corpuscular Hemoglobin 31.9 28.0-32.0 pg Mean Corpuscular Hemoglobin Concent 34.2 32.0-36.0 g/dL Red Cell Distribution Width 13.4 11.8-14.3 % Platelet Count 205 140-450 10^3/uL Mean Platelet Volume 7.8 6.9-10.8 fL Neutrophils (%) (Auto) 57.6 37.0-80.0 % Lymphocytes (%) (Auto) 26.2 10.0-50.0 % Monocytes (%) (Auto) 13.0 H 0.0-12.0 % Eosinophils (%) (Auto) 2.1 0.0-7.0 % Basophils (%) (Auto) 1.1 0.0-2.0 % Neutrophils # (Auto) 2.2 1.6-8.6 10 ^3/uL Lymphocytes # (Auto) 1.0 0.4-5.4 10 ^3/uL Monocytes # (Auto) 0.5 0-1.3 10 ^3/uL Eosinophils # (Auto) 0.1 0-0.8 10 ^3/uL Basophils # (Auto) 0 0-0.2 10 ^3/uL Nucleated Red Blood Cells 0.2 % Sodium Level 136 136-145 mmol/L Potassium Level 4.2 3.5-5.1 mmol/L Chloride Level 95 L 98-107 mmol/L Carbon Dioxide Level 22 20-31 mmol/L Anion Gap 19 H 5-15 Blood Urea Nitrogen 10 9-23 mg/dL Creatinine 0.69 L 0.700-1.30 mg/dL Glomerular Filtration Rate Calc 127 >90 mL/min BUN/Creatinine Ratio 14.5 10.0-20.0 Serum Glucose 295 H 74-106 mg/dL Calcium Level 9.6 8.7-10.4 mg/dL Magnesium Level 1.7 1.6-2.6 mg/dL Total Bilirubin 0.7 0.2-1.0 mg/dL Aspartate Amino Transferase (AST) 50 H 13-40 U/L Alanine Aminotransferase (ALT) 65 H 7-40 U/L Alkaline Phosphatase 114 46-116 U/L B-Type Natriuretic Peptide 27.15 0-100 pg/mL Total Protein 6.4 5.7-8.2 g/dL Albumin 4.2 3.2-4.8 g/dL Beta-Hydroxybutyric Acid > 4.500 H < 0.4 mmol/L PATIENT: DODIE THAYER ACCT: [id number] UNIT: [id number] : 1995 LOC: ER ROOM / BED: / AGE / SEX: 30 / M ADM STATUS: REG ER SERVICE 12 ORDERING PHYSICIAN: CHRISTOPHER LARKIN PAC PROCEDURE(s): CXRP - CHEST PORTABLE REASON: Shortness of breath ORDER NUMBER(s): [id number], ACCESSION NUMBER(s): [id number] CHEST RADIOGRAPH Indication: Shortness of breath Technique: Single frontal view of the chest was obtained Comparison: XY CHEST PORTABLE on DOS: 11/12/24, XY CHEST PORTABLE on DOS: 11/05/24, XY CHEST PORTABLE on DOS: 08/04/24 FINDINGS: Lines and Tubes: None Lungs: No focal consolidation. Pleura: No effusion. No pneumothorax. Cardiomediastinal contours: Unremarkable Bones: No acute osseous abnormality. IMPRESSION: 1. No acute cardiopulmonary disease. Assessment/Plan Assessment/Plan Diabetic keto-acidosis Intractable nausea and vomiting Elevated liver enzymes Generalized weakness Plan 1. Admit to intensive care unit 2. Breathing treatment 3. Pain control management 4. Management of fluids and electrolytes 5. Consultation for hospitalist 6. Diagnostic tests chest x-ray 7. DVT prophylaxis-on SCDs 8. Repeat labs CBC, CMP in a.m. 9. Continue with current medical management 10. Treatment plan discussed with patient and RN. Patient verbalized understanding. Plan discussed with: Patient, Other (RN) My Orders Orders - BRITNI RENNER DNP Procedure Category Date Status Time Ibuprofen Tablet PHA 04/15/25 In Process (Motrin Tablet) 21:45 Consistent DIET 04/16/25 Transmitted Carb(Ccho)Diabetes Breakfast Famotidine Injection PHA 04/16/25 In Process (Pepcid Injection) 10:00 Lorazepam 2mg/Ml Inj PHA 04/15/25 In Process (Ativan Inj) 21:45 Allergies THEO 04/15/25 In Process 21:33 Code Status CODE 04/15/25 Transmitted 21:33 Oxygen Per Hour RT 04/15/25 Transmitted 21:33 Hydrocodone-Acet PHA 04/15/25 In Process 5/325mg Tab (Clarion 21:45 Ondansetron Hcl PHA 04/15/25 In Process (Zofran) 21:45 Docusate Sodium PHA 04/15/25 In Process Capsule (Colace 21:45 Complete Blood Count LAB 04/16/25 Verified 04:00 Comprehensive LAB 04/16/25 Verified Metabolic Panel 04:00 Condition: Critical THEO 04/15/25 In Process 21:33 Bedrest With Bathroom THEO 04/15/25 In Process Privileg 21:33 Sequential THEO 04/15/25 In Process Compression Device Problem List: (1) Diabetic ketoacidosis (2) Intractable nausea and vomiting (3) Elevated liver enzymes (4) Generalized weakness Date of Service: April 15, 2025 Billing Provider: BRITNI RENNER DNP Common Visit Codes: [id number] INP/OBS CARE (HIGH) BRITNI RENNER DNP April 15, 2025 23:41
[2025-04-15] MEDS ORDERED: NITROGLYCERIN 0.4 MG SL TAB SL PRN (23:45)
[2025-04-15] MEDS ORDERED: MORPHINE SULFATE INJ 2 MG/ml SYRG IV PRN (23:45)
[2025-04-15] MEDS: D5W 5% 1,000 ML IV ONE (23:45)
[2025-04-16 00:43] LABS: Potassium 3.6 mmol/L (3.5-5.1); Sodium 139 mmol/L (136-145)
[2025-04-16 00:44] LABS: Anion Gap 13 (5-15); Calcium 8.7 mg/dL (8.7-10.4); Carbon Dioxide 28 mmol/L (20-31)
[2025-04-16 00:49] LABS: BUN/Creatinine Ratio 15.9 (10.0-20.0); Blood Urea Nitrogen 11 mg/dL (9-23); Glucose 99 mg/dL (74-106)
[2025-04-16 00:56] LABS: Chloride 98 mmol/L (98-107)
[2025-04-16 01:36] LABS: Urine Bacteria None Seen /hpf (None Seen)
[2025-04-16 01:49] LABS: Urine Blood Negative /uL (Negative); Urine Clarity Clear (Clear); Urine Color Yellow (Yellow); Urine Mucus FEW (None Seen); Urine Protein, UAD Negative (Negative); Urine Specific Gravity 1.031 (1.001-1.035); Urine Squamous Epithelial Cell FEW /hpf (<5); Urine Urobilinogen Normal (Negative); Urine WBC 1 /HPF (0-3)
[2025-04-16] MEDS ORDERED: DEXTROSE (50%) 50ML SYRG IV PRN ×3 (02:00→15:15)
[2025-04-16 03:28] VITALS: PULSE 84; RESP 14; O2SAT 95
[2025-04-16] MEDS: ACCU-CHEK COMFORT CURVE STRIP VI SCH ×3 (04:11→16:43)
[2025-04-16] MEDS: InsuLIN REG 1unit/0.01ml Soln (100units/ml) SC SCH ×3 (04:29→22:00)
[2025-04-16 05:17] LABS: Basophils # (auto) 0 10 ^3/uL (0-0.2); Basophils % (auto) 0.9 % (0.0-2.0); Eosinophils # (auto) 0.1 10 ^3/uL (0-0.8); Eosinophils % (auto) 1.9 % (0.0-7.0); Hemoglobin 15.5 g/dL (13.5-17.5); Lymphocytes # (auto) 1.6 10 ^3/uL (0.4-5.4); Lymphocytes % (auto) 33.3 % (10.0-50.0); Mean Corpuscular Hemoglobin 32.5 pg (28.0-32.0); Mean Corpuscular Hgb Conc. 34.4 g/dL (32.0-36.0); Mean Corpuscular Volume 94.4 fL (80.0-100.0); Monocytes # (auto) 0.8 10 ^3/uL (0-1.3); Monocytes % (auto) 15.2 % (0.0-12.0); Neutrophils # (auto) 2.4 10 ^3/uL (1.6-8.6); Neutrophils % (auto) 48.7 % (37.0-80.0); Nucleated Red Blood Cells % 0.5 %; Platelet Count (auto) 201 10^3/uL (140-450); Red Blood Cells 4.77 10^6/uL (4.5-5.90); Red Cell Distribution Width 13.6 % (11.8-14.3); White Blood Cell 4.9 10^3/uL (4.4-10.8)
[2025-04-16 05:34] LABS: Alanine Aminotransferase 64 U/L (7-40); Albumin 4.1 g/dL (3.2-4.8); Alkaline Phosphatase 109 U/L (46-116); Anion Gap 21 (5-15); Aspartate Aminotransferase 54 U/L (13-40); BUN/Creatinine Ratio 11.7 (10.0-20.0); Bilirubin, Total 0.9 mg/dL (0.2-1.0); Blood Urea Nitrogen 9 mg/dL (9-23); Calcium 9.4 mg/dL (8.7-10.4); Carbon Dioxide 20 mmol/L (20-31); Chloride 94 mmol/L (98-107); Glucose 184 mg/dL (74-106); Potassium 4.4 mmol/L (3.5-5.1); Sodium 135 mmol/L (136-145); Total Protein 6.3 g/dL (5.7-8.2)
[2025-04-16] MEDS: D5W 5% 1,000 ML IV SCH (08:18)
[2025-04-16] MEDS: INSULIN DRIP 100 UNIT/100ML 100 ML IV SCH (08:40)
[2025-04-16] MEDS: FAMOTIDINE (10MG/ML) 2ML VL IV SCH (09:06)
[2025-04-16] MEDS ORDERED: INSULIN LANTUS (GLARGINE) 1 /0.01ml (100units/ml) SC SCH (10:00)
[2025-04-16 13:24] LABS: Potassium 4.2 mmol/L (3.5-5.1)
[2025-04-16 13:25] LABS: Anion Gap 15 (5-15); Carbon Dioxide 24 mmol/L (20-31)
[2025-04-16 13:26] LABS: Calcium 9.5 mg/dL (8.7-10.4)
[2025-04-16 13:30] LABS: BUN/Creatinine Ratio 12.1 (10.0-20.0); Blood Urea Nitrogen 11 mg/dL (9-23)
[2025-04-16 13:31] LABS: Chloride 93 mmol/L (98-107); Glucose 336 mg/dL (74-106); Sodium 132 mmol/L (136-145)
--- NOTE | 2025-04-16 18:02 | DVHPN2 ---
Subjective I am assuming the care of the patient was from today onwards. Patient is currently on insulin drip which will be discontinued. Patient will be downgraded to telemetry. Reviewed: Care Plan Changes from previous H/P or p: No Changes Eyes: No Pain, No Vision change, No Conjunctivae inflammation, No Eyelid inflammation, No Other, No Redness ENT: No Ear pain, No Ear discharge, No Nose pain, No Nose discharge, No Nose congestion, No Mouth pain, No Mouth swelling, No Throat pain, No Throat swelling, No Other Cardiovascular: No Chest Pain, No Palpitations, No Orthopnea, No Paroxysmal Noc. Dyspnea, No Edema, No Lt Headedness, No Other Respiratory: No Cough, No Dry, No Shortness of breath, No SOB with excertion, No Wheezing, No Hemoptysis, No Pleuritic Pain, No Sputum, No Other Gastrointestinal: Nausea, Vomiting, Abdominal Pain; No Diarrhea, No Constipation, No Melena, No Hematochezia, No Other Genitourinary: No Dysuria, No Frequency, No Incontinence, No Hematuria, No Retention, No Other Musculoskeletal: No other, No neck pain, No shoulder pain, No arm pain, No back pain, No hand pain, No leg pain, No foot pain Skin: No Rash, No Lesions, No Jaundice, No Bruising, No Other Objective Vitals Vital Signs Date Time Temp Pulse Resp B/P (MAP) Pulse Ox O2 Delivery O2 Flow Rate FiO2 04/16/25 16:00 69 04/16/25 14:01 12 94/47 (63) 96 04/16/25 08:23 Room Air* 0 21 04/16/25 08:00 98.1 98.1 Intake/Output Intake and Output 04/16/25 07:00 Intake Total 2 ml Balance 2 ml Intake IV Total 2 ml Exam HEENT pupils are reactive Neck is supple CV is S1-S2 regular rate and rhythm Respiratory viral clear GI posterior bowel sound Extremity no edema [employer] no motor deficit Medications Current Medications Medications Dose Ordered Sig/Toño Route Start Time Stop Time Status Last Admin Dose Admin Ibuprofen 600 mg Q6HP PRN PO 04/15/25 21:45 Famotidine 20 mg DAILY IV 04/16/25 10:00 04/16/25 09:06 20 MG Lorazepam 0.5 mg Q8HP PRN IV 04/15/25 21:45 Acetaminophen/ Hydrocodone Bitart 1 tab Q4HP PRN PO 04/15/25 21:45 Ondansetron HCl 4 mg Q4HP PRN IV 04/15/25 21:45 Docusate Sodium 100 mg BIDPRN PRN PO 04/15/25 21:45 Diagnostic Test (Pha) 1 strip Q90MIN 04/15/25 21:00 Cancel Nitroglycerin 0.4 mg Q5MINP PRN SL 04/15/25 23:45 Morphine Sulfate 2 mg Q30M PRN IV 04/15/25 23:45 Insulin Glargine 15 units DAILY SC 04/17/25 10:00 Diagnostic Test (Pha) 1 strip ACHS 04/16/25 17:00 04/16/25 16:43 1 STRIP Insulin Human Regular HS SC 04/16/25 22:00 Insulin Human Regular AC SC 04/16/25 17:00 04/16/25 16:40 9 UNITS Dextrose 50 ml UD PRN IV 04/16/25 15:15 Laboratory Results Laboratory Tests 04/16/25 04:47 04/16/25 13:03 Chemistry Test 04/15/25 18:25 04/16/25 00:15 04/16/25 04:47 04/16/25 13:03 Albumin 4.2 g/dL (3.2-4.8) 4.1 g/dL (3.2-4.8) Calcium Level 9.6 mg/dL (8.7-10.4) 8.7 mg/dL (8.7-10.4) 9.4 mg/dL (8.7-10.4) 9.5 mg/dL (8.7-10.4) Magnesium Level 1.7 mg/dL (1.6-2.6) Total Protein 6.4 g/dL (5.7-8.2) 6.3 g/dL (5.7-8.2) Cardiac Markers Test 04/15/25 18:25 B-Type Natriuretic Peptide 27.15 pg/mL (0-100) LFT Test 04/15/25 18:25 04/16/25 04:47 Alanine Aminotransferase (ALT) 65 U/L (7-40) H 64 U/L (7-40) H Alkaline Phosphatase 114 U/L (46-116) 109 U/L (46-116) Aspartate Amino Transferase (AST) 50 U/L (13-40) H 54 U/L (13-40) H Total Bilirubin 0.7 mg/dL (0.2-1.0) 0.9 mg/dL (0.2-1.0) Urinalysis Test 04/16/25 01:27 Urine Color Yellow (Yellow) Urine Clarity Clear (Clear) Urine pH 6.0 (5.0-9.0) Urine Specific [place] 1.031 (1.001-1.035) Urine Protein Negative (Negative) Urine Ketones 3+ (Negative) H Urine Blood Negative /uL (Negative) Urine Nitrite Negative (Negative) Urine Bilirubin Negative (Negative) Urine Urobilinogen Normal mg/dL (Negative) Urine Leukocyte Esterase Negative /uL (Negative) Urine RBC <1 /hpf (0 - 3) Urine Microscopic WBC 1 /HPF (0-3) Urine Squamous Epithelial Cells Few /hpf (<5) Urine Bacteria None seen /hpf (None Seen) Urine Mucus Few (None Seen) Urine Glucose 4+ mg/dL (Normal) H Blood Gas Results Test 04/15/25 20:23 Arterial Blood pH 7.429 (7.350-7.450) FiO2 % 21.0 Assessment/Plan Assessment/Plan 30-year-old male with a known history of insulin-dependent diabetes mellitus, noncompliance initially presented to the hospital with intractable nausea vomiting found to have 1. Diabetic ketoacidosis, improved currently off of insulin drip 2. Insulin-dependent diabetes mellitus type 2 3. Hypertension 4. Noncompliance -turn of the insulin drip, resume home dose of insulin and sliding scale, diabetic diet, downgrade to telemetry -discharge plan , compliance teaching. Plan discussed with: Patient My Orders Orders - DOC PUENTE MD Procedure Category Date Status Time Glucose Blood PHA 04/16/25 In Process (Accu-Chek Comfort 17:00 Insulin R (Human) PHA 04/16/25 In Process (Insulin R) 22:00 Insulin R (Human) PHA 04/16/25 In Process (Insulin R) 17:00 Dextrose 50% Syringe PHA 04/16/25 In Process 15:15 Transfer Orders XFER 04/16/25 Transmitted 15:05 Date of Service: April 16, 2025 Billing Provider: DOC PUENTE MD Common Visit Codes: [id number] INP/OBS CARE(MOD) DOC PUENTE MD April 16, 2025 18:02
[2025-04-16 19:45] VITALS: PULSE 60; RESP 18; O2SAT 97
[2025-04-16 21:00] VITALS: BP 129/80; PULSE 96; RESP 20; TEMP 98.8; O2SAT 96
[2025-04-17 01:00] VITALS: BP 119/89; PULSE 66; RESP 19; TEMP 97.5; O2SAT 96
[2025-04-17 05:00] VITALS: BP 129/86; PULSE 62; RESP 19; TEMP 97.3; O2SAT 97
[2025-04-17 07:03] LABS: Basophils # (auto) 0 10 ^3/uL (0-0.2); Basophils % (auto) 0.9 % (0.0-2.0); Calcium 9.9 mg/dL (8.7-10.4); Chloride 100 mmol/L (98-107); Eosinophils # (auto) 0.1 10 ^3/uL (0-0.8); Eosinophils % (auto) 3.2 % (0.0-7.0); Hematocrit 45.7 % (41.0-53.0); Hemoglobin 15.9 g/dL (13.5-17.5); Lymphocytes # (auto) 1.4 10 ^3/uL (0.4-5.4); Lymphocytes % (auto) 35.6 % (10.0-50.0); Mean Corpuscular Hemoglobin 32.1 pg (28.0-32.0); Mean Corpuscular Hgb Conc. 34.8 g/dL (32.0-36.0); Mean Corpuscular Volume 92.2 fL (80.0-100.0); Monocytes # (auto) 0.6 10 ^3/uL (0-1.3); Monocytes % (auto) 14.1 % (0.0-12.0); Neutrophils # (auto) 1.8 10 ^3/uL (1.6-8.6); Neutrophils % (auto) 46.2 % (37.0-80.0); Nucleated Red Blood Cells % 0.4 %; Platelet Count (auto) 175 10^3/uL (140-450); Potassium 3.6 mmol/L (3.5-5.1); Red Blood Cells 4.96 10^6/uL (4.5-5.90); Red Cell Distribution Width 13.4 % (11.8-14.3); Sodium 137 mmol/L (136-145); White Blood Cell 3.9 10^3/uL (4.4-10.8)
[2025-04-17 07:04] LABS: Anion Gap 10 (5-15); Carbon Dioxide 27 mmol/L (20-31)
[2025-04-17 07:09] LABS: BUN/Creatinine Ratio 20.3 (10.0-20.0); Blood Urea Nitrogen 14 mg/dL (9-23)
[2025-04-17 07:10] LABS: Magnesium 1.7 mg/dL (1.6-2.6)
[2025-04-17 07:20] LABS: Glucose 161 mg/dL (74-106)
[2025-04-17 08:00] VITALS: PULSE 74
[2025-04-17 09:16] VITALS: BP 126/89; PULSE 61; RESP 20; TEMP 97.5; O2SAT 98
[2025-04-17] MEDS: INSULIN LANTUS (GLARGINE) 1 /0.01ml (100units/ml) SC SCH (12:04)
[2025-04-17 13:00] VITALS: BP 127/87; PULSE 54; RESP 20; TEMP 98.5; O2SAT 99
--- NOTE | 2025-04-17 13:34 | DVHDS2 ---
Discharge Summary Date of Admission April 15, 2025 at 23:40 Date of Discharge: April 17, 2025 Labs/Diagnostic Data: Laboratory Results Test 04/17/25 06:31 04/17/25 05:50 04/16/25 04:47 04/16/25 01:27 POC Glucose 171 mg/dl (70-106) White Blood Count 3.9 10^3/uL (4.4-10.8) Red Blood Count 4.96 10^6/uL (4.5-5.90) Hemoglobin 15.9 g/dL (13.5-17.5) Hematocrit 45.7 % (41.0-53.0) Mean Corpuscular Volume 92.2 fL (80.0-100.0) Mean Corpuscular Hemoglobin 32.1 pg (28.0-32.0) Mean Corpuscular Hemoglobin Concent 34.8 g/dL (32.0-36.0) Red Cell Distribution Width 13.4 % (11.8-14.3) Platelet Count 175 10^3/uL (140-450) Mean Platelet Volume 8.5 fL (6.9-10.8) Neutrophils (%) (Auto) 46.2 % (37.0-80.0) Lymphocytes (%) (Auto) 35.6 % (10.0-50.0) Monocytes (%) (Auto) 14.1 % (0.0-12.0) Eosinophils (%) (Auto) 3.2 % (0.0-7.0) Basophils (%) (Auto) 0.9 % (0.0-2.0) Neutrophils # (Auto) 1.8 10 ^3/uL (1.6-8.6) Lymphocytes # (Auto) 1.4 10 ^3/uL (0.4-5.4) Monocytes # (Auto) 0.6 10 ^3/uL (0-1.3) Eosinophils # (Auto) 0.1 10 ^3/uL (0-0.8) Basophils # (Auto) 0 10 ^3/uL (0-0.2) Nucleated Red Blood Cells 0.4 % Sodium Level 137 mmol/L (136-145) Potassium Level 3.6 mmol/L (3.5-5.1) Chloride Level 100 mmol/L (98-107) Carbon Dioxide Level 27 mmol/L (20-31) Anion Gap 10 (5-15) Blood Urea Nitrogen 14 mg/dL (9-23) Creatinine 0.69 mg/dL (0.700-1.30) Glomerular Filtration Rate Calc 127 mL/min (>90) BUN/Creatinine Ratio 20.3 (10.0-20.0) Serum Glucose 161 mg/dL (74-106) Calcium Level 9.9 mg/dL (8.7-10.4) Magnesium Level 1.7 mg/dL (1.6-2.6) Total Bilirubin 0.9 mg/dL (0.2-1.0) Aspartate Amino Transferase (AST) 54 U/L (13-40) Alanine Aminotransferase (ALT) 64 U/L (7-40) Alkaline Phosphatase 109 U/L (46-116) Total Protein 6.3 g/dL (5.7-8.2) Albumin 4.1 g/dL (3.2-4.8) Urine Color Yellow (Yellow) Urine Clarity Clear (Clear) Urine pH 6.0 (5.0-9.0) Urine Specific [place] 1.031 (1.001-1.035) Urine Protein Negative (Negative) Urine Ketones 3+ (Negative) Urine Blood Negative /uL (Negative) Urine Nitrite Negative (Negative) Urine Bilirubin Negative (Negative) Urine Urobilinogen Normal mg/dL (Negative) Urine Leukocyte Esterase Negative /uL (Negative) Urine RBC <1 /hpf (0 - 3) Urine Microscopic WBC 1 /HPF (0-3) Urine Squamous Epithelial Cells Few /hpf (<5) Urine Bacteria None seen /hpf (None Seen) Urine Mucus Few (None Seen) Urine Glucose 4+ mg/dL (Normal) Test 04/16/25 00:15 04/15/25 20:23 04/15/25 19:26 04/15/25 18:25 Beta-Hydroxybutyric Acid 3.784 mmol/L (< 0.4) Blood Gas Specimen Type Arterial Blood Gas Sample Site Right radial Blood Gas Patient Temperature 37.0 Arterial Blood Date Drawn [id number] Arterial Blood pH 7.429 (7.350-7.450) Arterial Blood Partial Pressure CO2 37.0 mmHg (35.0-48.0) Arterial Blood Partial Pressure O2 71.3 mmHg (83.0-108.0) Arterial Blood HCO3 24.0 mmol/L (21.0-28.0) Arterial Blood Oxygen Saturation 93.3 % (94.0-98.0) Arterial Blood Base Excess 0.0 mmol/L (-2.0-3.0) Arterial Blood Oxyhemoglobin 91.5 % (94.0-98.0) Arterial Blood Carboxyhemoglobin 1.4 % (0.5-1.5) Arterial Blood Methemoglobin 0.5 % (0.0-1.5) Arden Test Yes Blood Gas Total Hemoglobin 14.50 g/dL (13.5-17.5) Blood Gas Liter Flow 0.00 Blood Gas Modality Room air Blood Gas Spontaneous Rate 18 FiO2 % 21.0 Troponin I High Sensitivity < 3 ng/L (</=54) B-Type Natriuretic Peptide 27.15 pg/mL (0-100) Other Laboratory Tests 04/17/25 05:50 Brief Hx & Hospital Course: 30-year-old male with a known history of insulin-dependent diabetes mellitus, noncompliance initially presented to the hospital with intractable nausea vomiting found to have diabetic ketoacidosis. Patient was started on IV insulin drip as well as IV hydration. Patient's blood sugars are better controlled now and he is off the insulin drip. Patient is being discharged under stable condition compliance teaching has been given diabetic education will be given. Condition at Discharge: Stable Final Diagnosis/Problems List 30-year-old male with a known history of insulin-dependent diabetes mellitus, noncompliance initially presented to the hospital with intractable nausea vomiting found to have 1. Diabetic ketoacidosis, improved currently off of insulin drip 2. Insulin-dependent diabetes mellitus type 2 3. Hypertension 4. Noncompliance Discharge Disposition: Home SNF Discharge Will this Physician continue t: No Discharge Instruct/Medications Diet: Cardiac 2g Na,low cholest Diet comment: 1800 ADA diet Activity: No Restrictions, As Tolerated Follow Up/Referral: Follow up with the PCP in 1-2 weeks Medications: Resume Lantus Discharge Statement: "Patient was advised to return to the ER or call 911 if any headaches, dizziness, shortness of breath, chest pain, abdominal pain, bleeding, fevers, or worsening of medical condition. Patient was counseled about treatment plan, medications, possible side effects, patientverbalized understanding. All questions were answered to the best of my ability. This discharge took greater then 30 minutes in planning, reviewing documentation, counseling the patient, and discussing with other team members." ASSESSMENT ASSESSMENT Assessment 30-year-old male with a known history of insulin-dependent diabetes mellitus, noncompliance initially presented to the hospital with intractable nausea vomiting found to have 1. Diabetic ketoacidosis, improved currently off of insulin drip 2. Insulin-dependent diabetes mellitus type 2 3. Hypertension 4. Noncompliance Date of Service: April 17, 2025 Billing Provider: DOC PUENTE MD Common Visit Codes: [id number]/OBS DISCH DAY >30min DOC PUENTE MD April 17, 2025 13:34
[2025-04-17] MEDS ORDERED: LANC-347 XX (15:12)
[2025-04-17] MEDS ORDERED: INSLANTI SC (15:12)
[2025-04-17] MEDS ORDERED: BLOO1KIT60 XX (15:12)
[2025-04-17] MEDS ORDERED: INSU-567 XX (15:12)
== END 2025-04-17 15:40 | disposition left against medical advice (07) | DRG 420 ==
LOC: EDBD 17:43 → ER 17:43 → OVERFLOW 23:40 → TELE-EAST 04-16 23:28
PROVIDERS: ADMIT Nurse Practitioner Family; ATTEND Nurse Practitioner Family
DX: E11.10 Type 2 diabetes mellitus with ketoacidosis without coma (principal); F17.210 Nicotine dependence, cigarettes, uncomplicated; F32.A Depression, unspecified; F41.9 Anxiety disorder, unspecified; R74.8 Abnormal levels of other serum enzymes; I10 Essential (primary) hypertension; Z79.4 Long term (current) use of insulin; Z91.199 Patient's noncompliance with other medical treatment and regimen due to unspecified reason; Z59.00 Homelessness unspecified; Z88.0 Allergy status to penicillin; Z88.1 Allergy status to other antibiotic agents
CPT/HCPCS: 36415; 36600; 71045; 80048; 80053; 81001; 82010; 82805; 82962; 83735; 83880; 84484; 85025; 96361; 96374; 99291; G0378; J1815; J3490; Q0162

== ENCOUNTER 2025-05-01 21:57 | Emergency (ER) | payer MEDICAID ==
[~2025-05-01] VITALS: Ht 172.7 cm; Wt 68.1 kg
[~2025-05-01 21:57] MED LIST changes: +BLOO1KIT60 XX; -INSREGI SC; +LANC-347 XX
[2025-05-01 23:05] LABS: Basophils # (auto) 0.1 10 ^3/uL (0-0.2); Basophils % (auto) 1.2 % (0.0-2.0); Eosinophils # (auto) 0.2 10 ^3/uL (0-0.8); Eosinophils % (auto) 2.8 % (0.0-7.0); Hematocrit 44.2 % (41.0-53.0); Hemoglobin 15.5 g/dL (13.5-17.5); Lymphocytes # (auto) 2.3 10 ^3/uL (0.4-5.4); Lymphocytes % (auto) 41.8 % (10.0-50.0); Mean Corpuscular Hemoglobin 32.4 pg (28.0-32.0); Mean Corpuscular Hgb Conc. 35.1 g/dL (32.0-36.0); Mean Corpuscular Volume 92.5 fL (80.0-100.0); Monocytes # (auto) 0.6 10 ^3/uL (0-1.3); Monocytes % (auto) 10.7 % (0.0-12.0); Neutrophils # (auto) 2.4 10 ^3/uL (1.6-8.6); Neutrophils % (auto) 43.5 % (37.0-80.0); Platelet Count (auto) 236 10^3/uL (140-450); Red Blood Cells 4.78 10^6/uL (4.5-5.90); Red Cell Distribution Width 13.5 % (11.8-14.3); White Blood Cell 5.4 10^3/uL (4.4-10.8)
[2025-05-01 23:18] LABS: Anion Gap 15 (5-15); BUN/Creatinine Ratio 12.6 (10.0-20.0); Blood Urea Nitrogen 13 mg/dL (9-23); Calcium 9.8 mg/dL (8.7-10.4); Carbon Dioxide 23 mmol/L (20-31); Chloride 99 mmol/L (98-107); Potassium 4.6 mmol/L (3.5-5.1); Sodium 137 mmol/L (136-145); Total Protein 7.5 g/dL (5.7-8.2)
[2025-05-01 23:19] LABS: Alanine Aminotransferase 76 U/L (7-40); Albumin 4.9 g/dL (3.2-4.8); Alkaline Phosphatase 135 U/L (46-116); Aspartate Aminotransferase 129 U/L (13-40); Bilirubin, Total 0.4 mg/dL (0.2-1.0); Glucose 388 mg/dL (74-106)
[2025-05-01 23:28] VITALS: PULSE 106; RESP 16; TEMP 98.7; O2SAT 96
[2025-05-01] MEDS: ONDANSETRON HCL 4 MG/2 ML VIAL IV ONE (23:40)
[2025-05-01] MEDS: MORPHINE SULFATE 4 MG/ML SYR/VIAL IV ONE (23:41)
[2025-05-02 00:18] LABS: Urine Bacteria None Seen /hpf (None Seen)
[2025-05-02 00:36] LABS: Urine Blood Negative /uL (Negative); Urine Clarity Clear (Clear); Urine Color Light-Yellow (Yellow); Urine Protein, UAD Negative (Negative); Urine Specific Gravity 1.036 (1.001-1.035); Urine Squamous Epithelial Cell None Seen /hpf (<5); Urine Urobilinogen Normal (Negative); Urine WBC < 1 /HPF (0-3)
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
[2025-05-02 01:41] LABS: Cocaine Screen, Urine Neg (NEGATIVE)
[2025-05-02 02:04] LABS: Amphetamine Screen, Urine Pos (NEGATIVE); Barbiturate Scree,Urine Neg (NEGATIVE); Benzodiazephine Screen, Urine Neg (NEGATIVE); Cannabinoid Screen, Urine Neg (NEGATIVE); Opiate Scree,Urine Neg (NEGATIVE); Phencyclidine Screen, Urine Neg (NEGATIVE)
[2025-05-02] MEDS: SODIUM CHLORIDE 0.9% 1,000 ML IV ONE (03:02)
[2025-05-02] MEDS: InsuLIN REG 1unit/0.01ml Soln (100units/ml) IV ONE (03:04)
[2025-05-02 03:08] VITALS: BP 121/68; PULSE 108; RESP 18; O2SAT 95
== END 2025-05-02 03:52 | disposition home or self-care (01) ==
LOC: ER 21:57
DX: F10.129 Alcohol abuse with intoxication, unspecified (principal); F17.210 Nicotine dependence, cigarettes, uncomplicated; E11.65 Type 2 diabetes mellitus with hyperglycemia; Z79.899 Other long term (current) drug therapy; Z88.0 Allergy status to penicillin; Y90.9 Presence of alcohol in blood, level not specified
CPT/HCPCS: 36415; 80053; 80307; 81001; 82947; 85025; 96361; 96374; 96375; 99284; J1815; J2270; J2405; J7030; 82962

== ENCOUNTER 2025-05-15 12:29 | Emergency (ER) | payer MEDICAID ==
[~2025-05-15] VITALS: Ht 170.2 cm; Wt 72.7 kg
--- NOTE | 2025-05-15 12:36 | ED.PDOC ---
History of Present Illness HPI Comments 30 year old male presents to the ED with a chief compliant of hyperglycemia onset today (05/15/25). Per EMS, patient was being booked at [facility], BS was 470, 911 was called. Upon EMS arrival, BS was 520, patient has a "sick" feeling, states he has not had insulin for the past 2 days, was drinking ETOH this morning. Has no other complaints. PMHx [place], DM, depression, anxiety. Denies chest pain, nausea, vomiting, diarrhea, shortness of breath, abdominal pain, fever, chills. No other symptoms or modifying factors present at this time. Time Seen by MD: 12:30 Primary Care Provider: NONE Reviewed Notes: Medications, Allergies Allergies: Coded Allergies: Penicillin G (Verified Allergy, Unknown, 07/01/22) Penicillins (Unverified Allergy, Unknown, 07/01/22) Piperacillin (Verified Allergy, Unknown, 10/23/23) Tazobactam (Verified Allergy, Unknown, 10/23/23) Home Meds Active Scripts Insulin Syringe/Needle U-100 (ADVOCATE INSULIN SYRINGE/) 0.5 Mg/31 G Mis, MG XX, #30 Prov:DOC PUENTE MD 04/17/25 Lancets (Freestyle Lancets) Lancets Mis, BOX XX, #1 Prov:DOC PUENTE MD 04/17/25 Blood Glucose Monitoring Suppl (D-Care Glucometer Kit/Glu W/Device) 1 Kit Kit, KIT XX, #1 Prov:DOC PUENTE MD 04/17/25 Insulin Glargine (Lantus) 100 Unit/Ml Inj, 30 UNIT SC Q12HR for 30 Days, #30 INJ Prov:DOC PUENTE MD 04/17/25 Insulin Glargine (Lantus Solostar) 100 Unit/Ml Inj, 30 UNITS SC BID for 30 Days, #1 INJ 5 Refills Prov:EDGARDO SILVERIO MD 11/07/24 Insulin Syringes (Disposable) (Bd Insulin Syringe Luer-L) 1 Ml Mis, ML XX 6XD, #120 3 Refills Prov:EDGARDO SILVERIO MD 11/07/24 Insulin Syringe/Needle U-100 (ADVOCATE INSULIN SYRINGE/) 0.5 Mg/31 G Mis, APPLIC XX, #100 Use as directed Prov:EDGARDO SILVERIO MD 11/07/24 Insulin Syringe/Needle U-100 (ADVOCATE INSULIN SYRINGE/) 1 Ml/31 G Mis, ML XX TID PRN, #100 3 Refills use for insulin administration Prov:EDGARDO SILVERIO MD 11/07/24 Blood Glucose Monitoring Suppl (D-Care Glucometer Kit/Glu W/Device) 1 Kit Kit, KIT SC 5XD PRN, #1 1 Refill please check serum glucose before each meal. Prov:EDGARDO SILVERIO MD 11/07/24 Information Source: Patient, Emergency Med Personnel Mode of Arrival: EMS Severity: Moderate Timing: Hours Duration: Since onset Prehospital treatment: IVF Past Medical History PAST MEDICAL HISTORY: Anxiety, Depression, DM, [place] Surgical History: Denies all surgeries Family History Family History: Reviewed,noncontributory to illness, Family hx of DM Social History Smoker: Cigarettes Alcohol: Heavy Drugs: Methamphetamine Lives In: Homeless Constitutional: denies: chills, diaphoresis, fatigue, fever, malaise, sweats, weakness, others EENTM: denies: blurred vision, double vision, ear bleeding, ear discharge, ear drainage, ear pain, ear ringing, eye pain, eye redness, hearing loss, mouth pain, mouth swelling, nasal discharge, nose bleeding, nose congestion, nose pain, photophobia, tearing, throat pain, throat swelling, voice changes, others Respiratory: denies: cough, hemoptysis, orthopnea, SOB at rest, shortness of breath, SOB with excertion, stridor, wheezing, others Cardiovascular: denies: chest pain, dizzy spells, diaphoresis, Dyspnea on exertion, edema, irregular heart beat, left arm pain, lightheadedness, palpitations, PND, syncope, others Gastrointestinal: denies: abdomen distended, abdominal pain, blood streaked bowels, constipated, diarrhea, dysphagia, difficulty swallowing, hematemesis, melena, nausea, poor appetite, poor fluid intake, rectal bleeding, rectal pain, vomiting, others Genitourinary: denies: burning, dysuria, flank pain, frequency, hematuria, incontinence, penile discharge, penile sore, pain, testicle pain, testicle swelling, urgency, others Neurological: denies: dizziness, fainting, headache, left sided numbness, left sided weakness, numbness, paresthesia, pre-existing deficit, right sided numbness, right sided weakness, seizure, speech problems, tingling, tremors, weakness, others Musculoskeletal: denies: back pain, gout, joint pain, joint swelling, muscle pain, muscle stiffness, neck pain, others Integumetry: denies: bruises, change in color, change in hair/nails, dryness, laceration, lesions, lumps, rash, wounds, others Allergic/Immunocompromised: denies: Difficulty Healing, Frequent Infections, Hives, Itching, others Hematologic/Lymphatic: denies: anemia, blood clots, easy bleeding, easy bruising, swollen glands, others Endocrine: reports: others (hyperglycemia); denies: excessive hunger, excessive sweating, excessive thirst, excessive urination, flushing, intolerance to cold, intolerance to heat, unexplained weight gain, unexplained weight loss Psychiatric: denies: anxiety, bipolar disorder, depression, hopeless, panic disorder, schizophrenia, sleepless, suicidal, others All Other Systems: Reviewed and Negative Physical Exam General Appearance: Moderate Distress, Normal HEENT: Normal ENT Inspection, Pharynx Normal, TMs Normal Neck: Full Range of Motion, Non-Tender, Normal, Normal Inspection Respiratory: Chest Non-Tender, Lungs Clear, No Accessory Muscle Use, No Respiratory Distress, Normal Breath Sounds Cardiovascular: No Edema, No JVD, No Murmur, No Gallop, Normal Peripheral Pulses, Regular Rate/Rhythm Breast Exam: Deferred Gastrointestinal: No Organomegaly, Non Tender, No Pulsatile Mass, Normal Bowel Sounds, Soft Genitalia: Deferred Pelvic: Deferred Rectal: Deferred Extremities: No calf tenderness, Normal capillary refill, Normal inspection, Normal range of motion, Non-tender, No pedal edema Musculoskeletal : Apperance: Normal Neurologic: Alert, case consultant II-XII nml as Tested, No Motor Deficits, Normal Affect, Normal Mood, No Sensory Deficits Cerebellar Function: NOT DONE Reflexes: NOT DONE Skin: Dry, Normal Color, Warm Peripheral Pulses: 3+ Radial (R), 3+ Radial (L) Lymphatic: No Adenopathy Was a procedure done? Was a procedure done?: No Differential Dx Considerations may include: Hyperglycemia Electrolyte imbalance X-Ray, Labs, Meds, VS Vital Signs Date Time Temp Pulse Resp B/P (MAP) Pulse Ox O2 Delivery O2 Flow Rate FiO2 6/23/25 12:50 Room Air* 0 21 05/15/25 12:47 98.3 90 15 108/62 (77) 98 98.3 Lab Test 05/15/25 13:03 05/15/25 12:56 Range/Units POC Glucose 394 H 70-106 mg/dl White Blood Count 3.7 L 4.4-10.8 10^3/uL Red Blood Count 4.62 4.5-5.90 10^6/uL Hemoglobin 15.1 13.5-17.5 g/dL Hematocrit 43.0 41.0-53.0 % Mean Corpuscular Volume 93.2 80.0-100.0 fL Mean Corpuscular Hemoglobin 32.7 H 28.0-32.0 pg Mean Corpuscular Hemoglobin Concent 35.1 32.0-36.0 g/dL Red Cell Distribution Width 13.4 11.8-14.3 % Platelet Count 201 140-450 10^3/uL Mean Platelet Volume 8.3 6.9-10.8 fL Neutrophils (%) (Auto) 42.4 37.0-80.0 % Lymphocytes (%) (Auto) 38.1 10.0-50.0 % Monocytes (%) (Auto) 15.5 H 0.0-12.0 % Eosinophils (%) (Auto) 1.9 0.0-7.0 % Basophils (%) (Auto) 2.1 H 0.0-2.0 % Neutrophils # (Auto) 1.6 1.6-8.6 10 ^3/uL Lymphocytes # (Auto) 1.4 0.4-5.4 10 ^3/uL Monocytes # (Auto) 0.6 0-1.3 10 ^3/uL Eosinophils # (Auto) 0.1 0-0.8 10 ^3/uL Basophils # (Auto) 0.1 0-0.2 10 ^3/uL Nucleated Red Blood Cells 0.1 % Sodium Level 137 136-145 mmol/L Potassium Level 4.7 3.5-5.1 mmol/L Chloride Level 104 98-107 mmol/L Carbon Dioxide Level 20 20-31 mmol/L Anion Gap 13 5-15 Blood Urea Nitrogen 14 9-23 mg/dL Creatinine 0.79 0.700-1.30 mg/dL Glomerular Filtration Rate Calc 122 >90 mL/min BUN/Creatinine Ratio 17.7 10.0-20.0 Serum Glucose 406 *H 74-106 mg/dL Calcium Level 8.5 L 8.7-10.4 mg/dL Current Medications Medications (Trade) Dose Ordered Sig/Toño Route Start Time Stop Time Status Last Admin Sodium Chloride 1,000 ml @ 1,000 mls/hr Q1H ONCE IV 05/15/25 12:45 05/15/25 13:44 DC 05/15/25 13:01 Sodium Chloride 1,000 ml @ 150 mls/hr Q6H40M ONCE IV 05/15/25 12:45 05/15/25 19:24 05/15/25 13:01 Insulin Human Regular (InsuLIN R) 10 units ONCE ONCE IV 05/15/25 12:45 05/15/25 12:46 DC 05/15/25 13:05 Patient alert. Denies any symptoms. He has history of diabetes. Answering questions. Has not been taking his medication. Establish intravenous access. Was given fluids. Was given insulin. Abdomen is soft nontender. No sign of any sepsis. Explained to the patient. Continue cardiac monitoring. Patient instead leaving. He did leave standing outside walking. Explained to the patient. Insists on leaving. Was told to follow up with his primary care physician. Was told to come back if there is any problem. Time of 1ST Reevaluation: 13:00 Reevaluation 1ST: Unchanged Patient Education/Counseling: Diagnosis, Treatment, Prognosis Family Education/Counseling: No Family Present SEPSIS Sepsis Screen Physician Orders Sodium Chloride 0.9% (05/15/25 12:45) Vital Signs Date Time Temp Pulse Resp B/P (MAP) Pulse Ox O2 Delivery O2 Flow Rate FiO2 05/15/25 12:50 Room Air* 0 21 05/15/25 12:47 98.3 90 15 108/62 (77) 98 98.3 Laboratory Tests Test 05/15/25 12:56 White Blood Count 3.7 10^3/uL (4.4-10.8) L Medications Medications Dose Ordered Sig/Toño Route Start Time Stop Time Status Last Admin Dose Admin Insulin Human Regular 10 units ONCE ONCE IV 05/15/25 12:45 05/15/25 12:46 DC 05/15/25 13:05 Sodium Chloride 1,000 ml @ 150 mls/hr Q6H40M ONCE IV 05/15/25 12:45 05/15/25 19:24 05/15/25 13:01 Sodium Chloride 1,000 ml @ 1,000 mls/hr Q1H ONCE IV 05/15/25 12:45 05/15/25 13:44 DC 05/15/25 13:01 Departure 1 Departure Time of Disposition: 13:15 Impression: Primary Impression: Uncontrolled diabetes mellitus Qualified Codes: E13.65 - Other specified diabetes mellitus with hyperglycemia Disposition: 01 HOME / SELF CARE / HOMELESS Condition: Good Discharged With: Self Critical Care Note Critical Care Time?: No Stability Stability form required: No Heart Score Heart Score: Heart Score Response (Comments) Value History N/A 0 EKG N/A 0 Age N/A 0 Risk Factors N/A 0 Troponin N/A 0 Total 0 I personally scribed for JEAN LEONARDO MD ([email or web address]) on 05/15/25 at 12:36. Electronically submitted by Rhonda Leonard ([email or web address]). JEAN LEONARDO MD May 15, 2025 12:36
[2025-05-15 12:47] VITALS: BP 108/62; PULSE 90; RESP 15; TEMP 98.3; O2SAT 98
[2025-05-15] MEDS: SODIUM CHLORIDE 0.9% 1,000 ML IV ONE ×2 (13:01)
[2025-05-15] MEDS: InsuLIN REG 1unit/0.01ml Soln (100units/ml) IV ONE (13:05)
[2025-05-15 13:09] LABS: Basophils # (auto) 0.1 10 ^3/uL (0-0.2); Basophils % (auto) 2.1 % (0.0-2.0); Eosinophils # (auto) 0.1 10 ^3/uL (0-0.8); Eosinophils % (auto) 1.9 % (0.0-7.0); Hemoglobin 15.1 g/dL (13.5-17.5); Lymphocytes # (auto) 1.4 10 ^3/uL (0.4-5.4); Lymphocytes % (auto) 38.1 % (10.0-50.0); Mean Corpuscular Hemoglobin 32.7 pg (28.0-32.0); Mean Corpuscular Hgb Conc. 35.1 g/dL (32.0-36.0); Mean Corpuscular Volume 93.2 fL (80.0-100.0); Monocytes # (auto) 0.6 10 ^3/uL (0-1.3); Monocytes % (auto) 15.5 % (0.0-12.0); Neutrophils # (auto) 1.6 10 ^3/uL (1.6-8.6); Neutrophils % (auto) 42.4 % (37.0-80.0); Nucleated Red Blood Cells % 0.1 %; Platelet Count (auto) 201 10^3/uL (140-450); Red Blood Cells 4.62 10^6/uL (4.5-5.90); Red Cell Distribution Width 13.4 % (11.8-14.3); White Blood Cell 3.7 10^3/uL (4.4-10.8)
[2025-05-15 13:21] LABS: Anion Gap 13 (5-15); Calcium 8.5 mg/dL (8.7-10.4); Carbon Dioxide 20 mmol/L (20-31); Chloride 104 mmol/L (98-107); Potassium 4.7 mmol/L (3.5-5.1); Sodium 137 mmol/L (136-145)
[2025-05-15 13:25] LABS: BUN/Creatinine Ratio 17.7 (10.0-20.0); Blood Urea Nitrogen 14 mg/dL (9-23)
[2025-05-15 13:29] LABS: Glucose 406 mg/dL (74-106)
== END 2025-05-15 16:01 | disposition home or self-care (01) ==
LOC: EDBD 12:29 → ER 12:29
DX: E11.65 Type 2 diabetes mellitus with hyperglycemia (principal); F17.210 Nicotine dependence, cigarettes, uncomplicated; I25.2 Old myocardial infarction; F10.20 Alcohol dependence, uncomplicated; F19.90 Other psychoactive substance use, unspecified, uncomplicated; F32.A Depression, unspecified; F41.9 Anxiety disorder, unspecified; Z88.0 Allergy status to penicillin; Z59.00 Homelessness unspecified; Z79.4 Long term (current) use of insulin; Z79.899 Other long term (current) drug therapy; Y90.9 Presence of alcohol in blood, level not specified
CPT/HCPCS: 36415; 80048; 82947; 85025; 96361; 96374; 99283; J1815; J7030; 82962

== ENCOUNTER 2025-05-20 20:38 | Inpatient (IN) | payer MEDICAID ==
[~2025-05-20] VITALS: Ht 172.7 cm; Wt 76.1 kg
--- NOTE | 2025-05-20 20:49 | ED.PDOC ---
History of present illness HPI Comments 30y M who presents to the ED via EMS for chief complaint of hyperglycemia - per EMS, pt called after he states he has been out of his insulin for the past 2 days - pt states today, he went to liquor store and both some beers and while consuming them, he felt short of breath with associated abdominal pain and called EMS - EMS arrived on scene and noted pt with the following vitals: accu check: 581, BP : 114/68, Heart rate: 104 and 02 sat of 95% on room air - pt in the ED, otherwise denies any other symptoms but states he has not drank water today - pt otherwise is alert and oriented x 4 and able to answer all questions - pt has been to [facility] multiple times with similar complaints with the most recent discharge summary from [facility] from 04/17/25 30-year-old male with a known history of insulin-dependent diabetes mellitus, noncompliance initially presented to the hospital with intractable nausea vomiting found to have diabetic ketoacidosis. Patient was started on IV insulin drip as well as IV hydration. Patient's blood sugars are better controlled now and he is off the insulin drip. Patient is being discharged under stable condition compliance teaching has been given diabetic education will be given. past medical history: DM, depression, LA, anxiety past surgical history: denies allergies: penicillins, piperacillin, tazobactam medications: insulin social history: endorses tobacco use, heavy ETOH use, endorses drug use (methamphetamine use) HPI: Poor Historian. REVIEW OF SYSTEMS: CONSTITUTIONAL: Denies acute: fever, diaphoresis, chills, HEAD: Denies acute: headache, photophobia Eyes: Denies acute: Double vision, vision loss, eye pain, eye discharge. EARS: Denies acute: tinnitus, hearing loss, ear discharge, ear pain, THROAT: Denies acute: sore throat, swelling, difficulty swallowing , pain with swallowing, change in voice. NECK: Denies acute: neck pain, neck swelling, stiff neck. HEART: Denies acute : chest pain, palpitations, LUNGS: Denies acute: wheezing, cough, hemoptysis ABDOMEN: Denies acute: abdominal pain, Nausea, Vomiting, diarrhea, melena , hematemesis, hematochezia SKIN: Denies acute: rash, redness, lesions, itchiness. EXTREMITIES: Denies acute: calf pain, numbness, tingling, weakness, denies pain in extremity. Denies acute: Low back pain. Neuro: Denies acute: focal neurological deficit, motor or sensory focal neurological deficit, tremors, seizure like activity, confusion, dizziness, change in mental status, loss of bowel or bladder function, cauda equina like symptoms. : Denies acute: dysuria, hematuria, flank pain, increase in urinary frequency. PSYCH: Denies acute: hallucination, suicidal ideation, homicidal ideation. PHYSICAL EXAM: General: ----mild----acute distress, awake and alert. Head: normocephalic, atraumatic. Neck: supple, trachea is midline, no swelling. Throat: Normal phonation. Eyes:, no erythema, no purulent discharge, no proptosis, no icterus. Heart: regular tachycardic, no significant murmur appreciated. Lungs: no apparent respiratory distress, Able to speak in full sentences. No wheezing, no rhonchi, no crackles. No stridors Clear to auscultation bilaterally. Abdomen: non tender to palpation, non distended, soft, no guarding, no rebound, + bowel sounds. Neuro: Awake, Alert, oriented to name, self, situation, follows commands GCS=15. Speech is normal. Skin: no petechia, no purpura, no cyanosis, non-pale, not jaundice. Lower extremities: --no - Pitting edema no deformity, no focal swelling, no calf TTP. Makes eye contact. moves all four extremities. Face: no apparent facial droop. ED COURSE: DISCLAIMER: This medical document was created using an electronic medical record system with voice recognition software and computerized dictation system. Although this document has been carefully reviewed, there might still be some phonetic and typographical errors. Occasional wrong-word or "sound-alike" substitutions may have occurred due to the inherent limitations of voice recognition software. These areas are purely typographical due to imperfections of the software programs and do not reflect any compromise in the patient's medical care. Please read the chart carefully and recognize, using context, where these substitutions have occurred. Time Seen by MD: 20:41 Primary Care Provider: NONE History of present illness: Medications, Allergies Allergies: Coded Allergies: Penicillin G (Verified Allergy, Unknown, 07/01/22) Penicillins (Unverified Allergy, Unknown, 07/01/22) Piperacillin (Verified Allergy, Unknown, 10/23/23) Tazobactam (Verified Allergy, Unknown, 10/23/23) Home Meds Active Scripts Insulin Syringe/Needle U-100 (ADVOCATE INSULIN SYRINGE/) 0.5 Mg/31 G Mis, MG XX, #30 Prov:DOC PUENTE MD 04/17/25 Lancets (Freestyle Lancets) Lancets Mis, BOX XX, #1 Prov:DOC PUENTE MD 04/17/25 Blood Glucose Monitoring Suppl (D-Care Glucometer Kit/Glu W/Device) 1 Kit Kit, KIT XX, #1 Prov:DOC PUENTE MD 04/17/25 Insulin Glargine (Lantus) 100 Unit/Ml Inj, 30 UNIT SC Q12HR for 30 Days, #30 INJ Prov:DOC PUENTE MD 04/17/25 Insulin Glargine (Lantus Solostar) 100 Unit/Ml Inj, 30 UNITS SC BID for 30 Days, #1 INJ 5 Refills Prov:EDGARDO SILVERIO MD 11/07/24 Insulin Syringes (Disposable) (Bd Insulin Syringe Luer-L) 1 Ml Mis, ML XX 6XD, #120 3 Refills Prov:EDGARDO SILVERIO MD 11/07/24 Insulin Syringe/Needle U-100 (ADVOCATE INSULIN SYRINGE/) 0.5 Mg/31 G Mis, APPLIC XX, #100 Use as directed Prov:EDGARDO SILVERIO MD 11/07/24 Insulin Syringe/Needle U-100 (ADVOCATE INSULIN SYRINGE/) 1 Ml/31 G Mis, ML XX TID PRN, #100 3 Refills use for insulin administration Prov:EDGARDO SILVERIO MD 11/07/24 Blood Glucose Monitoring Suppl (D-Care Glucometer Kit/Glu W/Device) 1 Kit Kit, KIT SC 5XD PRN, #1 1 Refill please check serum glucose before each meal. Prov:EDGARDO SILVERIO MD 11/07/24 Information Source: Patient, Emergency Med Personnel Mode of Arrival: EMS Past Medical History PAST MEDICAL HISTORY: Anxiety, Depression, DM, LA Surgical History: Denies all surgeries Family History Family History: Reviewed,noncontributory to illness, Family hx of DM Social History Smoker: Cigarettes Alcohol: Heavy Drugs: Methamphetamine Lives In: Homeless Was a procedure done? Was a procedure done?: No Differential Diagnosis (DM) Differential Diagnosis: Dehydration, Diabetic Coma, DKA, Electrolyte Abnormality, Gastroenteritis, Hyperglycemia, Hyperosmolar State, UTI X-Ray, Labs, Meds, VS Vital Signs Date Time Temp Pulse Resp B/P (MAP) Pulse Ox O2 Delivery O2 Flow Rate FiO2 05/20/25 22:30 93 20 116/72 (87) 95 05/20/25 22:00 103 20 119/87 (98) 05/20/25 21:10 104 15 95 Room Air* 0 21 05/20/25 21:00 99.2 104 15 117/72 (87) 95 99.2 05/20/25 20:45 98.4 102 18 114/82 (93) 96 98.4 Lab Test 05/20/25 22:48 05/20/25 21:52 05/20/25 21:09 05/20/25 20:57 Range/Units Lactic Acid Level 3.7 *H 0.4-2.0 mmol/L POC Glucose 356 H 541 *H 70-106 mg/dl Urine Color Light-yellow Yellow Urine Clarity Clear Clear Urine pH 5.5 5.0-9.0 Urine Specific [place] 1.032 1.001-1.035 Urine Protein Negative Negative Urine Ketones Trace Negative Urine Blood Negative Negative /uL Urine Nitrite Negative Negative Urine Bilirubin Negative Negative Urine Urobilinogen Normal Negative mg/dL Urine Leukocyte Esterase Negative Negative /uL Urine RBC <1 0 - 3 /hpf Urine Microscopic WBC 0-3 /HPF Urine Squamous Epithelial Cells None seen <5 /hpf Urine Bacteria None seen None Seen /hpf Urine Glucose 4+ H Normal mg/dL Urine Opiates Screen Neg NEGATIVE Urine Fentanyl Screen Neg NEGATIVE Urine Barbiturates Screen Neg NEGATIVE Urine Phencyclidine Screen Neg NEGATIVE Urine Amphetamines Screen Pos NEGATIVE Urine Benzodiazepines Screen Neg NEGATIVE Urine Cocaine Screen Neg NEGATIVE Urine Cannabinoids Screen Neg NEGATIVE Test 05/20/25 20:50 05/20/25 20:48 Range/Units White Blood Count 5.4 # 4.4-10.8 10^3/uL Red Blood Count 4.55 4.5-5.90 10^6/uL Hemoglobin 14.8 13.5-17.5 g/dL Hematocrit 42.3 41.0-53.0 % Mean Corpuscular Volume 93.1 80.0-100.0 fL Mean Corpuscular Hemoglobin 32.6 H 28.0-32.0 pg Mean Corpuscular Hemoglobin Concent 35.0 32.0-36.0 g/dL Red Cell Distribution Width 13.3 11.8-14.3 % Platelet Count 190 140-450 10^3/uL Mean Platelet Volume 8.4 6.9-10.8 fL Neutrophils (%) (Auto) 58.6 37.0-80.0 % Lymphocytes (%) (Auto) 29.5 10.0-50.0 % Monocytes (%) (Auto) 9.9 0.0-12.0 % Eosinophils (%) (Auto) 0.8 0.0-7.0 % Basophils (%) (Auto) 1.2 0.0-2.0 % Neutrophils # (Auto) 3.1 1.6-8.6 10 ^3/uL Lymphocytes # (Auto) 1.6 0.4-5.4 10 ^3/uL Monocytes # (Auto) 0.5 0-1.3 10 ^3/uL Eosinophils # (Auto) 0 0-0.8 10 ^3/uL Basophils # (Auto) 0.1 0-0.2 10 ^3/uL Nucleated Red Blood Cells 0.1 % Sodium Level 137 136-145 mmol/L Potassium Level 4.4 3.5-5.1 mmol/L Chloride Level 99 98-107 mmol/L Carbon Dioxide Level 21 20-31 mmol/L Anion Gap 17 H 5-15 Blood Urea Nitrogen 13 9-23 mg/dL Creatinine 1.03 0.700-1.30 mg/dL Glomerular Filtration Rate Calc 100 >90 mL/min BUN/Creatinine Ratio 12.6 10.0-20.0 Serum Glucose 585 #*H 74-106 mg/dL Hemoglobin A1c 12.2 H <5.7 % A1C Serum Osmolality 359 H 278-298 mOsm/kg Lactic Acid Level 3.4 *H 0.4-2.0 mmol/L Calcium Level 8.4 L 8.7-10.4 mg/dL Phosphorus Level 5.5 H 2.4-5.1 mg/dL Magnesium Level 1.6 1.6-2.6 mg/dL Total Bilirubin 0.3 0.2-1.0 mg/dL Aspartate Amino Transferase (AST) 97 H <34 U/L Alanine Aminotransferase (ALT) 51 H 7-40 U/L Alkaline Phosphatase 104 46-116 U/L Total Protein 6.4 5.7-8.2 g/dL Albumin 4.2 3.2-4.8 g/dL Beta-Hydroxybutyric Acid 0.639 H < 0.4 mmol/L Blood Gas Specimen Type Arterial Blood Gas Sample Site Left radial Blood Gas Patient Temperature 37.0 Arterial Blood Date Drawn [id number] Arterial Blood pH 7.389 7.350-7.450 Arterial Blood Partial Pressure CO2 35.9 35.0-48.0 mmHg Arterial Blood Partial Pressure O2 74.8 L 83.0-108.0 mmHg Arterial Blood HCO3 21.2 21.0-28.0 mmol/L Arterial Blood Oxygen Saturation 93.7 L 94.0-98.0 % Arterial Blood Base Excess -3.1 L -2.0-3.0 mmol/L Arterial Blood Oxyhemoglobin 91.7 L 94.0-98.0 % Arterial Blood Carboxyhemoglobin 1.5 0.5-1.5 % Arterial Blood Methemoglobin 0.6 0.0-1.5 % Arden Test Modified Blood Gas Total Hemoglobin 15.30 13.5-17.5 g/dL Blood Gas Modality Room air FiO2 % 21.0 Time of 1ST Reevaluation: 00:00 Reevaluation 1ST: N/A Patient Education/Counseling: Diagnosis, Treatment Family Education/Counseling: No Family Present Comments Patient presented with the above HPI.--hyperglycemia suspected DKA----workup was initiated. patient was found with the above mentioned diagnosis. the following medications were ordered: please refer to order lists of meds and tests obtained by myself Dr. Pinto. Patient ED course and VS have been stabilized. Patient has been reassessed in the ED and remained in a stable condition. Pertinent incidental findings were discussed with the patient and/or family. Patient/family voices understanding and is agreeable with plan. Patient has been observed in the ED adequate length of time to insure improvement/stability. Escalation of care considered: Consideration of escalation to observation or admission DKA protocol was initiated. Patient was ADMITTED to the medicine team for further evaluation and treatment of their presentation. All the reports of any imaging studies that were ordered by myself were reviewed by myself. SEPSIS Sepsis Screen Physician Orders Manufacturing Engineering Technician (05/20/25 ) Electrocardigram (05/20/25 20:42) Abg W/ Co-Ox (05/20/25 20:42) Vital Signs Date Time Temp Pulse Resp B/P (MAP) Pulse Ox O2 Delivery O2 Flow Rate FiO2 05/20/25 22:30 93 20 116/72 (87) 95 05/20/25 22:00 103 20 119/87 (98) 05/20/25 21:10 104 15 95 Room Air* 0 21 05/20/25 21:00 99.2 104 15 117/72 (87) 95 99.2 05/20/25 20:45 98.4 102 18 114/82 (93) 96 98.4 Laboratory Tests Test 05/20/25 20:50 05/20/25 22:48 Lactic Acid Level 3.4 mmol/L (0.4-2.0) *H 3.7 mmol/L (0.4-2.0) *H White Blood Count 5.4 10^3/uL (4.4-10.8) # Departure 1 Departure Time of Disposition: 21:25 Impression: Primary Impression: Uncontrolled diabetes mellitus Additional Impressions: Diabetes mellitus with hyperglycemia Noncompliance with medication regimen DKA (diabetic ketoacidosis) Methamphetamine abuse Disposition: ADMITTED INPATIENT Admit to: ICU Condition: Critical Discharged With: Self Critical Care Note Critical Care Time?: Yes (1 hr-critical care time only) I personally scribed for SERG PINTO DO ([email or web address]) on 05/20/25 at 20:49. Electronically submitted by Nickie Novak ([email or web address]). I personally scribed for SERG PINTO DO ([email or web address]) on 05/20/25 at 21:01. Elec tronically submitted by Nickie Novak ([facility] [place]). SERG PINTO DO May 20, 2025 20:49
[2025-05-20 20:59] LABS: Base Excess -3.1 mmol/L (-2.0-3.0)
[2025-05-20 21:00] LABS: Hematocrit 42.3 % (41.0-53.0); Hemoglobin 14.8 g/dL (13.5-17.5); Mean Corpuscular Hemoglobin 32.6 pg (28.0-32.0); Mean Corpuscular Volume 93.1 fL (80.0-100.0); Nucleated Red Blood Cells % 0.1 %
[2025-05-20] MEDS: InsuLIN REG 1unit/0.01ml Soln (100units/ml) IV ONE (21:00)
[2025-05-20] MEDS: SODIUM CHLORIDE 0.9% 1,000 ML IV ONE ×3 (21:01→23:42)
[2025-05-20 21:10] VITALS: PULSE 104; RESP 15; O2SAT 95
[2025-05-20 21:18] LABS: Albumin 4.2 g/dL (3.2-4.8); Alkaline Phosphatase 104 U/L (46-116); Anion Gap 17 (5-15); BUN/Creatinine Ratio 12.6 (10.0-20.0); Blood Urea Nitrogen 13 mg/dL (9-23); Carbon Dioxide 21 mmol/L (20-31); Chloride 99 mmol/L (98-107); Magnesium 1.6 mg/dL (1.6-2.6); Potassium 4.4 mmol/L (3.5-5.1); Sodium 137 mmol/L (136-145); Total Protein 6.4 g/dL (5.7-8.2)
[2025-05-20 21:27] LABS: Alanine Aminotransferase 51 U/L (7-40); Bilirubin, Total 0.3 mg/dL (0.2-1.0); Calcium 8.4 mg/dL (8.7-10.4)
[2025-05-20 21:29] LABS: Glucose 585 mg/dL (74-106); Lactic Acid w/Reflex 3.4 mmol/L (0.4-2.0)
[2025-05-20 21:38] LABS: Urine Protein, UAD Negative (Negative)
[2025-05-20] MEDS ORDERED: DEXTROSE (50%) 50ML SYRG IV PRN (21:45)
[2025-05-20 21:46] LABS: Amphetamine Screen, Urine Pos (NEGATIVE); Barbiturate Scree,Urine Neg (NEGATIVE); Benzodiazephine Screen, Urine Neg (NEGATIVE); Cannabinoid Screen, Urine Neg (NEGATIVE); Cocaine Screen, Urine Neg (NEGATIVE); Opiate Scree,Urine Neg (NEGATIVE); Phencyclidine Screen, Urine Neg (NEGATIVE)
[2025-05-20] MEDS: SODIUM CHLORIDE 0.9% 1,000 ML IV SCH (21:55)
[2025-05-20] MEDS: INSULIN LANTUS (GLARGINE) 1 /0.01ml (100units/ml) SC ONE (21:57)
[2025-05-20] MEDS: INSULIN DRIP 100 UNIT/100ML 100 ML IV SCH (21:59)
[2025-05-20] MEDS: ACCU-CHEK COMFORT CURVE STRIP VI SCH (22:37)
--- NOTE | 2025-05-20 22:53 | DVHHP2 ---
History of Present Illness Reason for Visit: DKA (diabetic ketoacidosis) History of Present Illness The patient is a 30-year-old male with past medical history of depression, anxiety, DM, and MD who presented to [facility] ED with complaint of high blood glucose. Patient reports that he has run out of his insulin me dication for the past two days. Patient states today, he went to liquor store and bought some beers, while consuming them, he felt short of breath with associated abdominal pain. Patient was seen and evaluated in the ED with elevated blood sugar 585, anion gap 17, calcium 8.4, acetone 0.639, AST 97, ALT 51, WBC 5.4, platelets 190, sodium 137, potassium 4.4, BUN 13, creatinine 1.03, lactic acid 3.4, phosphorus 5.5, blood pressure 116/72, heart rate 93, temperature 99.2 F, O2 saturation 95% on room air. Patient was started on insulin drip, please see medication orders section in the computer. On my assessment, patient denied chest pain, no headache, no dizziness, no diaphoresis, no shortness of breath, no nausea, no vomiting, no fever, no chills. Patient was admitted for further evaluation and medical management. Past Medical History Anxiety, Depression, DM, MD Past Surgical History Denies all surgeries Family History Reviewed, noncontributory to the management of this case. Past Social History The patient is homeless, smokes cigarettes, drinks alcohol heavily, uses methamphetamine. Review of Systems Constitutional: Yes: Weakness; No: Fever, Chills, Sweats, Malaise, Other Eyes: No: Pain, Vision change, Conjunctivae inflammation, Eyelid inflammation, Other, Redness ENT: No: Ear pain, Ear discharge, Nose pain, Nose discharge, Nose congestion, Mouth pain, Mouth swelling, Throat pain, Throat swelling, Other Respiratory: No: Cough, Dry, Shortness of breath, SOB with excertion, Wheezing, Hemoptysis, Pleuritic Pain, Sputum, Wheezing, Other Cardiovascular: No: Chest Pain, Palpitations, Orthopnea, Paroxysmal Noc. Dyspnea, Edema, Lt Headedness, Other Gastrointestinal: No: Nausea, Vomiting, Abdominal Pain, Diarrhea, Constipation, Melena, Hematochezia, Other Genitourinary: No Dysuria, No Frequency, No Incontinence, No Hematuria, No Retention, No Other Musculoskeletal: No: other, neck pain, shoulder pain, arm pain, back pain, hand pain, leg pain, foot pain Skin: No: Rash, Lesions, Jaundice, Bruising, Other Neurological: No: Weakness, Numbness, Incoordination, Change in speech, Confusion, Seizures, Other Allergies: Coded Allergies: Penicillin G (Verified Allergy, Unknown, 07/01/22) Penicillins (Unverified Allergy, Unknown, 07/01/22) Piperacillin (Verified Allergy, Unknown, 10/23/23) Tazobactam (Verified Allergy, Unknown, 10/23/23) Medications Current Medications Medications Dose Ordered Sig/Toño Route Start Time Stop Time Status Last Admin Dose Admin Sodium Chloride 1,000 ml @ 500 mls/hr Q2H IV 05/20/25 21:45 05/21/25 01:44 05/20/25 21:55 500 MLS/HR Insulin Human (Reg)/Sodium Chloride 100 ml @ 0.5 mls/hr Q24H IV 05/20/25 21:45 05/20/25 21:59 4 MLS/HR Dextrose 50 ml UD PRN IV 05/20/25 21:45 Diagnostic Test (Pha) 1 strip Q90MIN 05/20/25 22:30 05/20/25 22:37 1 STRIP Exam Vital Signs Vital Signs Date Time Temp Pulse Resp B/P (MAP) Pulse Ox O2 Delivery O2 Flow Rate FiO2 05/20/25 22:30 93 20 116/72 (87) 95 05/20/25 21:10 Room Air* 0 21 05/20/25 21:00 99.2 99.2 General Appearance: Alert, Oriented X3, Cooperative, No acute distress HEENT: Atraumatic, PERRLA, EOMI, Mucous membr. moist/pink Respiratory: Clear to auscultation, Normal air movement Cardiovascular: Regular rate, Normal S1, Normal S2, No murmurs Abdominal: Normal bowel sounds, Soft, No tenderness, No hepatospenomegaly, No masses Extremities: No clubbing, No cyanosis, No edema, Normal pulses, No tenderness/swelling Skin: No rashes, No breakdown, No significant lesion Neuro: Normal speech, Normal tone, Sensation intact, Cranial nerves 3-12 NL, Reflexes 2+, Other (Generalized weakness) Psych/Mental Status: Mental status NL, Mood NL Labs/Xrays Labs Test 05/20/25 21:52 05/20/25 21:09 05/20/25 20:50 05/20/25 20:48 Range/Units POC Glucose 356 H 70-106 mg/dl Urine Color Light-yellow Yellow Urine Clarity Clear Clear Urine pH 5.5 5.0-9.0 Urine Specific [place] 1.032 1.001-1.035 Urine Protein Negative Negative Urine Ketones Trace Negative Urine Blood Negative Negative /uL Urine Nitrite Negative Negative Urine Bilirubin Negative Negative Urine Urobilinogen Normal Negative mg/dL Urine Leukocyte Esterase Negative Negative /uL Urine RBC <1 0 - 3 /hpf Urine Microscopic WBC 0-3 /HPF Urine Squamous Epithelial Cells None seen <5 /hpf Urine Bacteria None seen None Seen /hpf Urine Glucose 4+ H Normal mg/dL Urine Opiates Screen Neg NEGATIVE Urine Fentanyl Screen Neg NEGATIVE Urine Barbiturates Screen Neg NEGATIVE Urine Phencyclidine Screen Neg NEGATIVE Urine Amphetamines Screen Pos NEGATIVE Urine Benzodiazepines Screen Neg NEGATIVE Urine Cocaine Screen Neg NEGATIVE Urine Cannabinoids Screen Neg NEGATIVE White Blood Count 5.4 # 4.4-10.8 10^3/uL Red Blood Count 4.55 4.5-5.90 10^6/uL Hemoglobin 14.8 13.5-17.5 g/dL Hematocrit 42.3 41.0-53.0 % Mean Corpuscular Volume 93.1 80.0-100.0 fL Mean Corpuscular Hemoglobin 32.6 H 28.0-32.0 pg Mean Corpuscular Hemoglobin Concent 35.0 32.0-36.0 g/dL Red Cell Distribution Width 13.3 11.8-14.3 % Platelet Count 190 140-450 10^3/uL Mean Platelet Volume 8.4 6.9-10.8 fL Neutrophils (%) (Auto) 58.6 37.0-80.0 % Lymphocytes (%) (Auto) 29.5 10.0-50.0 % Monocytes (%) (Auto) 9.9 0.0-12.0 % Eosinophils (%) (Auto) 0.8 0.0-7.0 % Basophils (%) (Auto) 1.2 0.0-2.0 % Neutrophils # (Auto) 3.1 1.6-8.6 10 ^3/uL Lymphocytes # (Auto) 1.6 0.4-5.4 10 ^3/uL Monocytes # (Auto) 0.5 0-1.3 10 ^3/uL Eosinophils # (Auto) 0 0-0.8 10 ^3/uL Basophils # (Auto) 0.1 0-0.2 10 ^3/uL Nucleated Red Blood Cells 0.1 % Sodium Level 137 136-145 mmol/L Potassium Level 4.4 3.5-5.1 mmol/L Chloride Level 99 98-107 mmol/L Carbon Dioxide Level 21 20-31 mmol/L Anion Gap 17 H 5-15 Blood Urea Nitrogen 13 9-23 mg/dL Creatinine 1.03 0.700-1.30 mg/dL Glomerular Filtration Rate Calc 100 >90 mL/min BUN/Creatinine Ratio 12.6 10.0-20.0 Serum Glucose 585 #*H 74-106 mg/dL Serum Osmolality 359 H 278-298 mOsm/kg Lactic Acid Level 3.4 *H 0.4-2.0 mmol/L Calcium Level 8.4 L 8.7-10.4 mg/dL Phosphorus Level 5.5 H 2.4-5.1 mg/dL Magnesium Level 1.6 1.6-2.6 mg/dL Total Bilirubin 0.3 0.2-1.0 mg/dL Aspartate Amino Transferase (AST) 97 H <34 U/L Alanine Aminotransferase (ALT) 51 H 7-40 U/L Alkaline Phosphatase 104 46-116 U/L Total Protein 6.4 5.7-8.2 g/dL Albumin 4.2 3.2-4.8 g/dL Beta-Hydroxybutyric Acid 0.639 H < 0.4 mmol/L Blood Gas Specimen Type Arterial Blood Gas Sample Site Left radial Blood Gas Patient Temperature 37.0 Arterial Blood Date Drawn [id number] Arterial Blood pH 7.389 7.350-7.450 Arterial Blood Partial Pressure CO2 35.9 35.0-48.0 mmHg Arterial Blood Partial Pressure O2 74.8 L 83.0-108.0 mmHg Arterial Blood HCO3 21.2 21.0-28.0 mmol/L Arterial Blood Oxygen Saturation 93.7 L 94.0-98.0 % Arterial Blood Base Excess -3.1 L -2.0-3.0 mmol/L Arterial Blood Oxyhemoglobin 91.7 L 94.0-98.0 % Arterial Blood Carboxyhemoglobin 1.5 0.5-1.5 % Arterial Blood Methemoglobin 0.6 0.0-1.5 % Arden Test Modified Blood Gas Total Hemoglobin 15.30 13.5-17.5 g/dL Blood Gas Modality Room air FiO2 % 21.0 Assessment/Plan Assessment/Plan DKA (diabetic ketoacidosis) Uncontrolled diabetes mellitus Diabetes mellitus with hyperglycemia Noncompliance with medication regimen Generalized weakness Plan 1. Admit to intensive care unit 2. Breathing treatment 3. Pain control management 4. Management of fluids and electrolytes 5. Consultation for hospitalist 6. Diagnostic tests chest x-ray 7. DVT prophylaxis on SCDs 8. Repeat labs CBC, CMP in a.m. 9. Continue with current medical management 10. Treatment plan discussed with patient and RN. Patient verbalized understanding. Plan discussed with: Patient, Other (RN) My Orders Orders - BRITNI RENNER DNP Procedure Category Date Status Time Lactic Acid W/ Reflex LAB 05/20/25 Verified Order 22:48 Hemoglobin A1c LAB 05/20/25 Verified 22:48 Consistent DIET 05/21/25 Verified Carb(Ccho)Diabetes Breakfast Lorazepam 2mg/Ml Inj PHA 05/20/25 Verified (Ativan Inj) 23:00 Admit ADMIT 05/20/25 Verified 22:48 Allergies THEO 05/20/25 Verified 22:48 Code Status CODE 05/20/25 Verified 22:48 Oxygen Per Hour RT 05/20/25 Verified 22:48 Hydrocodone-Acet PHA 05/20/25 Verified 5/325mg Tab ([place] 23:00 Ondansetron Hcl PHA 05/20/25 Verified (Zofran) 23:00 Docusate Sodium PHA 05/20/25 Verified Capsule (Colace 23:00 Fall Risk Precautions THEO 05/20/[address] 22:48 Complete Blood Count LAB 05/21/25 Verified 04:00 Comprehensive LAB 05/21/25 Verified Metabolic Panel 04:00 Condition: Critical THEO 05/20/25 Verified 22:48 Acetaminophen Tablet PHA 05/20/25 Verified (Tylenol Tablet) 23:00 Maintain Bed Rest THEO 05/20/25 Verified 22:48 Sequential THEO 05/20/25 Verified Compression Device Nitroglycerin PHA 05/20/25 Verified Sublingual (Ntrostat 23:00 Morphine Sulfate PHA 05/20/25 Verified Injection 23:00 Stat Ekg For Chest THEO 05/20/25 Verified Pain 22:48 Notify Md Of Changes [facility] 05/20/25 Verified From Base 22:48 Paper Cone Maker For [facility] 05/20/25 Verified 24 Hours 22:48 Emergency Dysrhythmia [facility] 05/20/25 Verified Protocol 22:48 Rhythm Strips Once [facility] 05/20/25 Verified Every Shift 22:48 Oxygen By Nasal RT 05/20/25 Verified Cannula 22:48 Problem List: (1) DKA (diabetic ketoacidosis) (2) Uncontrolled diabetes mellitus (3) Diabetes mellitus with hyperglycemia (4) Noncompliance with medication regimen (5) Generalized weakness Date of Service: May 20, 2025 Billing Provider: BRITNI RENNER DNP Common Visit Codes: [id number] INP/OBS CARE (HIGH) BRITNI RENNER DNP May 20, 2025 22:53
[2025-05-20] MEDS ORDERED: ACETAMINOPHEN 325 MG TAB PO PRN (23:00)
[2025-05-20] MEDS ORDERED: DOCUSATE SOD 100 MG CAP PO PRN (23:00)
[2025-05-20] MEDS ORDERED: NITROGLYCERIN 0.4 MG SL TAB SL PRN (23:00)
[2025-05-20] MEDS ORDERED: LORazepam 2MG/ML-1ML VIAL IV PRN (23:00)
[2025-05-20] MEDS ORDERED: MORPHINE SULFATE INJ 2 MG/ml SYRG IV PRN (23:00)
[2025-05-20] MEDS ORDERED: HYDROcodone-ACET 5/325MG TAB PO PRN (23:00)
[2025-05-20] MEDS ORDERED: ONDANSETRON HCL 4 MG/2 ML VIAL IV PRN (23:00)
[2025-05-21] VITALS (10 sets, daily range): BP systolic 92–120; BP diastolic 50–73; PULSE 62–97; RESP 11–20; TEMP 97.3–98.7; O2SAT 93–98
[2025-05-21] MEDS ORDERED: DEXTROSE (50%) 50ML SYRG IV PRN (01:30)
[2025-05-21] MEDS: D5W/SOD CHLO 0.9% 1,000 ML IV SCH (01:59)
[2025-05-21 02:46] LABS: Potassium 4.1 mmol/L (3.5-5.1); Sodium 142 mmol/L (136-145)
[2025-05-21 02:47] LABS: Anion Gap 11 (5-15); Carbon Dioxide 24 mmol/L (20-31)
[2025-05-21 02:51] LABS: Calcium 7.7 mg/dL (8.7-10.4); Chloride 107 mmol/L (98-107)
[2025-05-21 02:52] LABS: BUN/Creatinine Ratio 13.9 (10.0-20.0); Blood Urea Nitrogen 11 mg/dL (9-23)
[2025-05-21 02:53] LABS: Glucose 154 mg/dL (74-106)
[2025-05-21] MEDS: ACCU-CHEK COMFORT CURVE STRIP VI SCH (04:06)
[2025-05-21] MEDS: InsuLIN REG 1unit/0.01ml Soln (100units/ml) SC SCH (04:08)
[2025-05-21 04:54] LABS: Hematocrit 40.9 % (41.0-53.0); Hemoglobin 14.1 g/dL (13.5-17.5); Mean Corpuscular Hemoglobin 32.0 pg (28.0-32.0); Mean Corpuscular Volume 92.9 fL (80.0-100.0); Nucleated Red Blood Cells % 0.3 %
[2025-05-21 05:20] LABS: Alanine Aminotransferase 39 U/L (7-40); Albumin 3.7 g/dL (3.2-4.8); Alkaline Phosphatase 87 U/L (46-116); Anion Gap 8 (5-15); BUN/Creatinine Ratio 17.4 (10.0-20.0); Blood Urea Nitrogen 12 mg/dL (9-23); Calcium 8.7 mg/dL (8.7-10.4); Carbon Dioxide 26 mmol/L (20-31); Chloride 107 mmol/L (98-107); Potassium 4.0 mmol/L (3.5-5.1); Sodium 141 mmol/L (136-145)
[2025-05-21 05:21] LABS: Bilirubin, Total 0.3 mg/dL (0.2-1.0); Glucose 222 mg/dL (74-106); Total Protein 5.6 g/dL (5.7-8.2)
--- NOTE | 2025-05-21 23:48 | DVHPN2 ---
Subjective The patient is seen and examined at bedside. Still nauseated with no vomiting. Reviewed: Care Plan, H&P, Labs, Medications, Previous Orders, Radiology Changes from previous H/P or p: No Changes Eyes: No Pain, No Vision change, No Conjunctivae inflammation, No Eyelid inflammation, No Other, No Redness ENT: No Ear pain, No Ear discharge, No Nose pain, No Nose discharge, No Nose congestion, No Mouth pain, No Mouth swelling, No Throat pain, No Throat swelling, No Other Cardiovascular: No Chest Pain, No Palpitations, No Orthopnea, No Paroxysmal Noc. Dyspnea, No Edema, No Lt Headedness, No Other Respiratory: No Cough, No Dry, No Shortness of breath, No SOB with excertion, No Wheezing, No Hemoptysis, No Pleuritic Pain, No Sputum, No Other Gastrointestinal: No Nausea, No Vomiting, No Abdominal Pain, No Diarrhea, No Constipation, No Melena, No Hematochezia, No Other Genitourinary: No Dysuria, No Frequency, No Incontinence, No Hematuria, No Retention, No Other Musculoskeletal: No other, No neck pain, No shoulder pain, No arm pain, No back pain, No hand pain, No leg pain, No foot pain Skin: No Rash, No Lesions, No Jaundice, No Bruising, No Other Objective Vitals Vital Signs Date Time Temp Pulse Resp B/P (MAP) Pulse Ox O2 Delivery O2 Flow Rate FiO2 05/21/25 20:00 98.0 77 19 120/71 (87) 96 98.0 05/21/25 20:00 Room Air* 0 21 21 Intake/Output Intake and Output 05/21/25 07:00 Intake Total 3404 ml Output Total 350 ml Balance 3054 ml Intake Oral 150 ml IV Total 3254 ml Output Urine Total 350 ml General Appearance: Alert, Cooperative, No acute distress HEENT: Atraumatic, PERRLA, EOMI, Mucous membr. moist/pink Neck: Supple Lungs: Clear to auscultation, Normal air movement Cardiovascular: Regular rate, Normal S1, Normal S2, No murmurs, Gallops, Rubs Abdomen: Normal bowel sounds, Soft, No tenderness Neuro: Cranial nerves 3-12 NL Psych/Mental Status: Mental status NL Medications Current Medications Medications Dose Ordered Sig/Toño Route Start Time Stop Time Status Last Admin Dose Admin Dextrose 50 ml UD PRN IV 05/20/25 21:45 Cancel Lorazepam 0.5 mg Q8HP PRN IV 05/20/25 23:00 Acetaminophen/ Hydrocodone Bitart 1 tab Q4HP PRN PO 05/20/25 23:00 Ondansetron HCl 4 mg Q4HP PRN IV 05/20/25 23:00 Docusate Sodium 100 mg BIDPRN PRN PO 05/20/25 23:00 Acetaminophen 650 mg Q6HP PRN PO 05/20/25 23:00 Nitroglycerin 0.4 mg Q5MINP PRN SL 05/20/25 23:00 Morphine Sulfate 2 mg Q30M PRN IV 05/20/25 23:00 Dextrose/Sodium Chloride 1,000 ml @ 125 mls/hr Q8H IV 05/21/25 01:30 05/21/25 16:09 125 MLS/HR Diagnostic Test (Pha) 1 strip IQ4HR 05/21/25 04:00 05/21/25 20:00 1 STRIP Insulin Human Regular IQ4HR SC 05/21/25 04:00 05/21/25 20:30 6 UNITS Dextrose 50 ml UD PRN IV 05/21/25 01:30 Laboratory Results Laboratory Tests 05/21/25 04:37 Chemistry Test 05/21/25 02:08 05/21/25 04:37 Calcium Level 7.7 mg/dL (8.7-10.4) L 8.7 mg/dL (8.7-10.4) Albumin 3.7 g/dL (3.2-4.8) Total Protein 5.6 g/dL (5.7-8.2) L LFT Test 05/21/25 04:37 Alanine Aminotransferase (ALT) 39 U/L (7-40) Alkaline Phosphatase 87 U/L (46-116) Aspartate Amino Transferase (AST) 62 U/L (<34) H Total Bilirubin 0.3 mg/dL (0.2-1.0) Urinalysis Test 05/20/25 21:09 Urine Color Light-yellow (Yellow) Urine Clarity Clear (Clear) Urine pH 5.5 (5.0-9.0) Urine Specific [place] 1.032 (1.001-1.035) Urine Protein Negative (Negative) Urine Ketones Trace (Negative) Urine Blood Negative /uL (Negative) Urine Nitrite Negative (Negative) Urine Bilirubin Negative (Negative) Urine Urobilinogen Normal mg/dL (Negative) Urine Leukocyte Esterase Negative /uL (Negative) Urine RBC <1 /hpf (0 - 3) Urine Microscopic WBC /HPF (0-3) Urine Squamous Epithelial Cells None seen /hpf (<5) Urine Bacteria None seen /hpf (None Seen) Urine Glucose 4+ mg/dL (Normal) H Microbiology Microbiology Date/Time Source Procedure Growth Status 05/21/25 00:30 Nose MRSA Screen - Final Complete Labs and/or images reviewed: Labs reviewed by me Assessment/Plan Assessment/Plan DKA (diabetic ketoacidosis) Uncontrolled diabetes mellitus Diabetes mellitus with hyperglycemia Noncompliance with medication regimen Generalized weakness Continuing current management. Patient off insulin drip. Transition the patient out of drip with sliding scale insulin and Lantus. Downgrade the patient to telemetry. Advised the patient to be out of bed and ambulate. Advised the patient to compliant with medical treatment. This medical document was created using an electronic medical record system with [employer] direct computerized dictation system. Although this document has been carefully reviewed, there may still be some phonetic and typographical errors. These areas are purely typographical due to imperfections of the software programs, and do not reflect any compromise in the patient's medical care. Plan discussed with: Patient My Orders Orders - ANICETO ZALDIVAR MD Procedure Category Date Status Time Transfer Orders XFER 05/21/25 Transmitted 16:23 Date of Service: May 21, 2025 Billing Provider: ANICETO ZALDIVAR MD Common Visit Codes: [id number] INP/OBS CARE(HIGH) ANICETO ZALDIVAR MD May 21, 2025 23:48
[2025-05-22] VITALS (16 sets, daily range): BP systolic 102–127; BP diastolic 64–89; PULSE 57–79; RESP 12–20; TEMP 97.8–98.9; O2SAT 93–97
[2025-05-22 05:58] LABS: Hematocrit 42.7 % (41.0-53.0); Hemoglobin 14.8 g/dL (13.5-17.5); Mean Corpuscular Hemoglobin 32.2 pg (28.0-32.0); Mean Corpuscular Volume 92.9 fL (80.0-100.0); Nucleated Red Blood Cells % 0.1 %
[2025-05-22 06:23] LABS: Alanine Aminotransferase 29 U/L (7-40); Alkaline Phosphatase 79 U/L (46-116); Anion Gap 8 (5-15); BUN/Creatinine Ratio 12.7 (10.0-20.0); Calcium 9.0 mg/dL (8.7-10.4); Carbon Dioxide 24 mmol/L (20-31); Potassium 4.0 mmol/L (3.5-5.1); Sodium 140 mmol/L (136-145)
[2025-05-22 06:24] LABS: Albumin 3.5 g/dL (3.2-4.8); Bilirubin, Total 0.4 mg/dL (0.2-1.0)
[2025-05-22 06:29] LABS: Blood Urea Nitrogen 8 mg/dL (9-23); Chloride 108 mmol/L (98-107); Glucose 174 mg/dL (74-106); Total Protein 5.4 g/dL (5.7-8.2)
--- NOTE | 2025-05-22 12:04 | DVHPN2 ---
Subjective The patient is seen and examined at bedside. Still nauseated with no vomiting. Reviewed: Care Plan, H&P, Labs, Medications, Previous Orders, Radiology Changes from previous H/P or p: No Changes Eyes: No Pain, No Vision change, No Conjunctivae inflammation, No Eyelid inflammation, No Other, No Redness ENT: No Ear pain, No Ear discharge, No Nose pain, No Nose discharge, No Nose congestion, No Mouth pain, No Mouth swelling, No Throat pain, No Throat swelling, No Other Cardiovascular: No Chest Pain, No Palpitations, No Orthopnea, No Paroxysmal Noc. Dyspnea, No Edema, No Lt Headedness, No Other Respiratory: No Cough, No Dry, No Shortness of breath, No SOB with excertion, No Wheezing, No Hemoptysis, No Pleuritic Pain, No Sputum, No Other Gastrointestinal: No Nausea, No Vomiting, No Abdominal Pain, No Diarrhea, No Constipation, No Melena, No Hematochezia, No Other Genitourinary: No Dysuria, No Frequency, No Incontinence, No Hematuria, No Retention, No Other Musculoskeletal: No other, No neck pain, No shoulder pain, No arm pain, No back pain, No hand pain, No leg pain, No foot pain Skin: No Rash, No Lesions, No Jaundice, No Bruising, No Other Objective Vitals Vital Signs Date Time Temp Pulse Resp B/P (MAP) Pulse Ox O2 Delivery O2 Flow Rate FiO2 05/22/25 08:00 57 05/22/25 08:00 12 96 Room Air* 0 21 05/22/25 08:00 98.9 116/72 (87) 98.9 Intake/Output Intake and Output 05/22/25 07:00 Intake Total 5178 ml Output Total 4300 ml Balance 878 ml Intake Oral 1050 ml IV Total 4128 ml Output Urine Total 4300 ml # Voids 4 # Bowel Movements 2 General Appearance: Alert, Cooperative, No acute distress HEENT: Atraumatic, PERRLA, EOMI, Mucous membr. moist/pink Neck: Supple Lungs: Clear to auscultation, Normal air movement Cardiovascular: Regular rate, Normal S1, Normal S2, No murmurs, Gallops, Rubs Abdomen: Normal bowel sounds, Soft, No tenderness Neuro: Cranial nerves 3-12 NL Psych/Mental Status: Mental status NL Medications Current Medications Medications Dose Ordered Sig/Toño Route Start Time Stop Time Status Last Admin Dose Admin Dextrose 50 ml UD PRN IV 05/20/25 21:45 Cancel Lorazepam 0.5 mg Q8HP PRN IV 05/20/25 23:00 Acetaminophen/ Hydrocodone Bitart 1 tab Q4HP PRN PO 05/20/25 23:00 Ondansetron HCl 4 mg Q4HP PRN IV 05/20/25 23:00 Docusate Sodium 100 mg BIDPRN PRN PO 05/20/25 23:00 Acetaminophen 650 mg Q6HP PRN PO 05/20/25 23:00 Nitroglycerin 0.4 mg Q5MINP PRN SL 05/20/25 23:00 Morphine Sulfate 2 mg Q30M PRN IV 05/20/25 23:00 Dextrose/Sodium Chloride 1,000 ml @ 125 mls/hr Q8H IV 05/21/25 01:30 05/22/25 08:11 125 MLS/HR Diagnostic Test (Pha) 1 strip IQ4HR 05/21/25 04:00 05/22/25 04:02 1 STRIP Insulin Human Regular IQ4HR SC 05/21/25 04:00 05/22/25 08:13 3 UNITS Dextrose 50 ml UD PRN IV 05/21/25 01:30 Laboratory Results Laboratory Tests 05/22/25 04:52 Chemistry Test 05/22/25 04:52 Albumin 3.5 g/dL (3.2-4.8) Calcium Level 9.0 mg/dL (8.7-10.4) Magnesium Level 1.7 mg/dL (1.6-2.6) Total Protein 5.4 g/dL (5.7-8.2) L LFT Test 05/22/25 04:52 Alanine Aminotransferase (ALT) 29 U/L (7-40) Alkaline Phosphatase 79 U/L (46-116) Aspartate Amino Transferase (AST) 27 U/L (<34) Total Bilirubin 0.4 mg/dL (0.2-1.0) Urinalysis Test 05/20/25 21:09 Urine Color Light-yellow (Yellow) Urine Clarity Clear (Clear) Urine pH 5.5 (5.0-9.0) Urine Specific [place] 1.032 (1.001-1.035) Urine Protein Negative (Negative) Urine Ketones Trace (Negative) Urine Blood Negative /uL (Negative) Urine Nitrite Negative (Negative) Urine Bilirubin Negative (Negative) Urine Urobilinogen Normal mg/dL (Negative) Urine Leukocyte Esterase Negative /uL (Negative) Urine RBC <1 /hpf (0 - 3) Urine Microscopic WBC /HPF (0-3) Urine Squamous Epithelial Cells None seen /hpf (<5) Urine Bacteria None seen /hpf (None Seen) Urine Glucose 4+ mg/dL (Normal) H Microbiology Microbiology Date/Time Source Procedure Growth Status 05/21/25 00:30 Nose MRSA Screen - Final Complete Labs and/or images reviewed: Labs reviewed by me Assessment/Plan Assessment/Plan DKA (diabetic ketoacidosis) Uncontrolled diabetes mellitus Diabetes mellitus with hyperglycemia Noncompliance with medication regimen Generalized weakness Continuing current management. Patient off insulin drip. Transition the patient out of drip with sliding scale insulin and Lantus. Downgrade the patient to telemetry. Still waiting for bed. Advised the patient to be out of bed and ambulate. Advised the patient to compliant with medical treatment. This medical document was created using an electronic medical record system with [employer] direct computerized dictation system. Although this document has been carefully reviewed, there may still be some phonetic and typographical errors. These areas are purely typographical due to imperfections of the software programs, and do not reflect any compromise in the patient's medical care. Plan discussed with: Patient My Orders Orders - ANICETO ZALDIVAR MD Procedure Category Date Status Time Transfer Orders XFER 05/21/25 Transmitted 16:23 * Dietary Consult CONS 05/22/25 Transmitted 08:02 Date of Service: May 22, 2025 Billing Provider: ANICETO ZALDIVAR MD Common Visit Codes: [id number] INP/OBS CARE(HIGH) ANICETO ZALDIVAR MD May 22, 2025 12:04
[2025-05-22] MEDS: MAGNESIUM SULFATE 1GM/100ML 100 ML IV ONE (14:16)
[2025-05-22] MEDS: SODIUM CHLORIDE 0.9% 1,000 ML IV SCH (16:54)
[2025-05-23 01:00] VITALS: BP 131/91; PULSE 69; RESP 16; TEMP 97.1; O2SAT 96
[2025-05-23 05:00] VITALS: BP 122/80; PULSE 74; RESP 20; TEMP 98.1; O2SAT 97
[2025-05-23 05:48] LABS: Hematocrit 46.1 % (41.0-53.0); Hemoglobin 16.4 g/dL (13.5-17.5); Mean Corpuscular Hemoglobin 32.8 pg (28.0-32.0); Mean Corpuscular Volume 92.3 fL (80.0-100.0); Nucleated Red Blood Cells % 0.4 %
[2025-05-23 06:28] LABS: Alanine Aminotransferase 33 U/L (7-40); Albumin 4.0 g/dL (3.2-4.8); Alkaline Phosphatase 97 U/L (46-116); Anion Gap 8 (5-15); BUN/Creatinine Ratio 23.8 (10.0-20.0); Blood Urea Nitrogen 19 mg/dL (9-23); Calcium 9.2 mg/dL (8.7-10.4); Carbon Dioxide 24 mmol/L (20-31); Chloride 103 mmol/L (98-107); Magnesium 2.0 mg/dL (1.6-2.6); Potassium 4.4 mmol/L (3.5-5.1); Total Protein 6.3 g/dL (5.7-8.2)
[2025-05-23 06:29] LABS: Bilirubin, Total 0.4 mg/dL (0.2-1.0)
[2025-05-23 06:41] LABS: Glucose 339 mg/dL (74-106); Sodium 135 mmol/L (136-145)
[2025-05-23 08:00] VITALS: PULSE 68; RESP 20; O2SAT 96
[2025-05-23 09:00] VITALS: BP 135/72; PULSE 74; RESP 18; TEMP 97.7; O2SAT 100
== END 2025-05-23 09:20 | disposition left against medical advice (07) | DRG 420 ==
LOC: EDBD 20:38 → ER 20:38 → OVERFLOW 22:48 → DOU IN ICU 05-21 00:35 → TELE-WESTW 05-22 21:45
PROVIDERS: ADMIT Internal Medicine; ATTEND Internal Medicine
PROC: 5A09357 Assistance with Respiratory Ventilation, Less than 24 Consecutive Hours, Continuous Positive Airway Pressure (ICD-10-PCS; principal; 2025-05-21)
DX: E11.10 Type 2 diabetes mellitus with ketoacidosis without coma (principal); F10.90 Alcohol use, unspecified, uncomplicated; F15.90 Other stimulant use, unspecified, uncomplicated; F17.210 Nicotine dependence, cigarettes, uncomplicated; F41.9 Anxiety disorder, unspecified; I25.2 Old myocardial infarction; Z53.29 Procedure and treatment not carried out because of patient's decision for other reasons; Z59.00 Homelessness unspecified; Z91.148 Patient's other noncompliance with medication regimen for other reason; Z79.4 Long term (current) use of insulin; Z88.0 Allergy status to penicillin
CPT/HCPCS: 36415; 36600; 80048; 80053; 80307; 81001; 82010; 82805; 82962; 83036; 83605; 83735; 83930; 84100; 85025; 87081; 96361; 96374; G0378; J1815

== ENCOUNTER 2025-05-27 00:31 | Inpatient (IN) | payer MEDICAID ==
[~2025-05-27] VITALS: Ht 172.7 cm; Wt 71.2 kg
[2025-05-27 01:16] VITALS: BP 140/90; PULSE 105; RESP 18; TEMP 97.4; O2SAT 96
[2025-05-27 01:21] LABS: Potassium 3.6 mmol/L (3.5-5.1)
[2025-05-27 01:22] LABS: Anion Gap 15 (5-15); Carbon Dioxide 24 mmol/L (20-31)
[2025-05-27 01:23] LABS: Calcium 9.4 mg/dL (8.7-10.4)
[2025-05-27 01:25] LABS: Chloride 107 mmol/L (98-107); Hematocrit 47.6 % (41.0-53.0); Hemoglobin 16.3 g/dL (13.5-17.5); Mean Corpuscular Hemoglobin 31.9 pg (28.0-32.0); Mean Corpuscular Volume 93.0 fL (80.0-100.0); Sodium 146 mmol/L (136-145)
[2025-05-27 01:27] LABS: BUN/Creatinine Ratio 17.4 (10.0-20.0); Blood Urea Nitrogen 12 mg/dL (9-23)
[2025-05-27 01:30] LABS: Glucose 71 mg/dL (74-106)
--- NOTE | 2025-05-27 01:37 | ED.PDOC ---
History of present illness HPI Comments 30-year-old male with a history of diabetes, alcohol and methamphetamine abuse, brought in by self stating he may have taken too much insulin. Patient states he has been drinking alcohol today, and may have accidentally given himself anywhere from 30-60 units of insulin. He was unable to state how much insulin he actually took, however knows he is supposed to take 15 units twice a day. Patient states that shortly after checking in at the ED lobby, he briefly went outside and had a syncopal episode. He states he awakened the uninjured. Blood glucose was 63 at triage. Chief Complaint: Hypoglycemia Time Seen by MD: 01:37 Primary Care Provider: NONE History of present illness: Nurses Notes Allergies: Coded Allergies: Penicillin G (Verified Allergy, Unknown, 07/01/22) Penicillins (Unverified Allergy, Unknown, 07/01/22) Piperacillin (Verified Allergy, Unknown, 10/23/23) Tazobactam (Verified Allergy, Unknown, 10/23/23) Home Meds Active Scripts Insulin Syringe/Needle U-100 (ADVOCATE INSULIN SYRINGE/) 0.5 Mg/31 G Mis, MG XX, #30 Prov:DOC PUENTE MD 04/17/25 Lancets (Freestyle Lancets) Lancets Mis, BOX XX, #1 Prov:DOC PUENTE MD 04/17/25 Blood Glucose Monitoring Suppl (D-Care Glucometer Kit/Glu W/Device) 1 Kit Kit, KIT XX, #1 Prov:DOC PUENTE MD 04/17/25 Insulin Glargine (Lantus) 100 Unit/Ml Inj, 30 UNIT SC Q12HR for 30 Days, #30 INJ Prov:DOC PUENTE MD 04/17/25 Insulin Glargine (Lantus Solostar) 100 Unit/Ml Inj, 30 UNITS SC BID for 30 Days, #1 INJ 5 Refills Prov:EDGARDO SILVERIO MD 11/07/24 Insulin Syringes (Disposable) (Bd Insulin Syringe Luer-L) 1 Ml Mis, ML XX 6XD, #120 3 Refills Prov:EDGARDO SILVERIO MD 11/07/24 Insulin Syringe/Needle U-100 (ADVOCATE INSULIN SYRINGE/) 0.5 Mg/31 G Mis, APPLIC XX, #100 Use as directed Prov:EDGARDO SILVERIO MD 11/07/24 Insulin Syringe/Needle U-100 (ADVOCATE INSULIN SYRINGE/) 1 Ml/31 G Mis, ML XX TID PRN, #100 3 Refills use for insulin administration Prov:EDGARDO SILVERIO MD 11/07/24 Blood Glucose Monitoring Suppl (D-Care Glucometer Kit/Glu W/Device) 1 Kit Kit, KIT SC 5XD PRN, #1 1 Refill please check serum glucose before each meal. Prov:EDGARDO SILVERIO MD 11/07/24 Information Source: Patient Mode of Arrival: Ambulatory Timing: Hours Duration: Since onset [place]: Shaky, Sweaty Symptoms: Anxious, Shaky, Sweaty History of: Diabetes, Insulin use, Frequent hyperglycemic Past Medical History PAST MEDICAL HISTORY: Anxiety, Depression, DM, [place] Past Medical History (Other): Diabetic ketoacidosis Surgical History: Denies all surgeries Family History Family History: Reviewed,noncontributory to illness Social History Smoker: Cigarettes Alcohol: Heavy Drugs: Methamphetamine Lives In: Homeless Constitutional: denies: chills, diaphoresis, fatigue, fever, malaise, sweats, weakness, others EENTM: denies: blurred vision, double vision, ear bleeding, ear discharge, ear drainage, ear pain, ear ringing, eye pain, eye redness, hearing loss, mouth pain, mouth swelling, nasal discharge, nose bleeding, nose congestion, nose pain , photophobia, tearing, throat pain, throat swelling, voice changes, others Respiratory: denies: cough, hemoptysis, orthopnea, SOB at rest, shortness of breath, SOB with excertion, stridor, wheezing, others Cardiovascular: denies: chest pain, dizzy spells, diaphoresis, Dyspnea on exertion, edema, irregular heart beat, left arm pain, lightheadedness, palpitations, PND, syncope, others Gastrointestinal: denies: abdomen distended, abdominal pain, blood streaked bowels, constipated, diarrhea, dysphagia, difficulty swallowing, hematemesis, melena, nausea, poor appetite, poor fluid intake, rectal bleeding, rectal pain, vomiting, others Genitourinary: denies: burning, dysuria, flank pain, frequency, hematuria, incontinence, penile discharge, penile sore, pain, testicle pain, testicle swelling, urgency, others Neurological: reports: fainting; denies: dizziness, headache, left sided numbne ss, left sided weakness, numbness, paresthesia, pre-existing deficit, right sided numbness, right sided weakness, seizure, speech problems, tingling, tremors, weakness, others Musculoskeletal: denies: back pain, gout, joint pain, joint swelling, muscle pain, muscle stiffness, neck pain, others Integumetry: denies: bruises, change in color, change in hair/nails, dryness, laceration, lesions, lumps, rash, wounds, others Allergic/Immunocompromised: denies: Difficulty Healing, Frequent Infections, Hives, Itching, others Hematologic/Lymphatic: denies: anemia, blood clots, easy bleeding, easy bruising, swollen glands, others Endocrine: denies: excessive hunger, excessive sweating, excessive thirst, excessive urination, flushing, intolerance to cold, intolerance to heat, unexplained weight gain, unexplained weight loss, others Psychiatric: reports: others (Intoxicated with alcohol); denies: anxiety, bipolar disorder, depression, hopeless, panic disorder, schizophrenia, sleepless, suicidal Physical Exam General Appearance: No Apparent Distress HEENT: PERRL/EOMI, Other (Moist mucous membranes. No facial asymmetry.) Neck: Full Range of Motion, Normal Inspection Respiratory: Lungs Clear, No Accessory Muscle Use, No Respiratory Distress, Normal Breath Sounds Cardiovascular: No Edema, No JVD, Tachycardia Breast Exam: Deferred Gastrointestinal: Non Tender, Soft Genitalia: Deferred Pelvic: Deferred Rectal: Deferred Extremities: Normal inspection, Normal range of motion, Non-tender, No pedal edema Neurologic: Alert (Oriented x4), Normal Affect, Normal Mood, Other (Ambulatory) Cerebellar Function: NOT DONE Reflexes: NOT DONE Skin: Dry, Normal Color, Warm Lymphatic: NOT DONE Was a procedure done? Was a procedure done?: No Differential Diagnosis (DM) Differential Diagnosis: Electrolyte Abnormality, Encephalopathy, Hypoglycemia, Other (Alcohol intoxication, drug intoxication, accidental insulin overdose, among others) X-Ray, Labs, Meds, VS Vital Signs Date Time Temp Pulse Resp B/P (MAP) Pulse Ox O2 Delivery O2 Flow Rate FiO2 05/27/25 01:16 97.4 105 18 140/90 (107) 96 97.4 Lab Test 05/27/25 02:06 05/27/25 01:09 05/27/25 00:57 Range/Units Total Bilirubin 0.3 0.2-1.0 mg/dL Aspartate Amino Transferase (AST) 48 H 13-40 U/L Alanine Aminotransferase (ALT) 38 7-40 U/L Troponin I High Sensitivity < 3 L < 3 L </=54 ng/L POC Glucose 63 L 70-106 mg/dl White Blood Count 8.0 # 4.4-10.8 10^3/uL Red Blood Count 5.12 4.5-5.90 10^6/uL Hemoglobin 16.3 13.5-17.5 g/dL Hematocrit 47.6 41.0-53.0 % Mean Corpuscular Volume 93.0 80.0-100.0 fL Mean Corpuscular Hemoglobin 31.9 28.0-32.0 pg Mean Corpuscular Hemoglobin Concent 34.3 32.0-36.0 g/dL Red Cell Distribution Width 13.6 11.8-14.3 % Platelet Count 258 140-450 10^3/uL Mean Platelet Volume 8.5 6.9-10.8 fL Neutrophils (%) (Auto) 37.0-80.0 % Lymphocytes (%) (Auto) 10.0-50.0 % Monocytes (%) (Auto) 0.0-12.0 % Basophils (%) (Auto) 0.0-2.0 % Neutrophils # (Auto) 1.6-8.6 10 ^3/uL Lymphocytes # (Auto) 0.4-5.4 10 ^3/uL Monocytes # (Auto) 0-1.3 10 ^3/uL Differential Total Cells Counted 100.0 100 Neutrophils % (Manual) 28 L 37.0-80.0 Band Neutrophils % (Manual) 3 Lymphocytes % (Manual) 44 10.0-50.0 Monocytes % (Manual) 15 H 0-12 Eosinophils % (Manual) 3 0-7 Basophils % (Manual) 0 0.0-2.0 Metamyelocytes % (manual) 2 Myelocytes % (Manual) 0 Promyelocytes % (Manual) 0 Blast Cells % (Manual) 3 Reactive Lymphocytes 2 Platelet Estimate Adequate Sodium Level 146 #H 136-145 mmol/L Potassium Level 3.6 3.5-5.1 mmol/L Chloride Level 107 98-107 mmol/L Carbon Dioxide Level 24 20-31 mmol/L Anion Gap 15 5-15 Blood Urea Nitrogen 12 9-23 mg/dL Creatinine 0.69 L 0.700-1.30 mg/dL Glomerular Filtration Rate Calc 127 >90 mL/min BUN/Creatinine Ratio 17.4 10.0-20.0 Serum Glucose 71 #L 74-106 mg/dL Calcium Level 9.4 8.7-10.4 mg/dL B-Type Natriuretic Peptide 2.75 0-100 pg/mL Plasma/Serum Blood Alcohol 255.4 H <10 mg/dL Current Medications Medications (Trade) Dose Ordered Sig/Toño Route Start Time Stop Time Status Last Admin Dextrose/Sodium Chloride 1,000 ml @ 75 mls/hr [id number] ONCE IV 05/27/25 01:30 05/27/25 14:49 05/27/25 01:46 EXAM: XY CHEST PORTABLE CLINICAL HISTORY: h hypoglycemia TECHNIQUE: Single AP view of the chest WID: COMPARISON: XY CHEST PORTABLE on DOS: 04/15/25, FINDINGS: Lines and tubes: None Chest: The heart size and pulmonary vasculature is within normal limits. No pleural effusion, pneumothorax, or consolidation. The osseous structures are grossly intact. IMPRESSION: No acute cardiopulmonary abnormality. X-Ray, Labs, Meds, VS Comment 30-year-old male with a history of diabetes and polysubstance abuse brought in by self complaining of possible accidental insulin overdose associated with h ypoglycemia Vitals remarkable for heart rate 105 Exam remarkable for tachycardia Rhythm strip independently interpreted by me: Sinus tach, rate 105, no ectopy. CBC unremarkable. Basic metabolic panel remarkable for glucose 71, repeat Accu- Chek 63, troponin negative, BNP normal Patient treated with the following in the ED: Given p.o. juice and food. D5 half-normal saline infusion at 75 cc an hour was ordered. Patient was unable to state how much insulin he may have taken, estimating it may have been anywhere from 30-60 units, so plan was to admit the patient for observation and ongoing blood glucose monitoring Patient was called for re-evaluation multiple times, however did not answer. It was assumed the patient had eloped from the ED. Time of 1ST Reevaluation: 01:32 Reevaluation 1ST: Unchanged Patient Education/Counseling: Diagnosis, Treatment Family Education/Counseling: No Family Present SEPSIS Sepsis Screen Physician Orders Chest Portable (05/27/25 00:39) Urinalysis (05/27/25 00:39) Electrocardigram (05/27/25 00:39) Accucheck (05/27/25 00:39) D5w/Sod Chl 0.45% (D5w 1/2ns) (05/27/25 01:30) Drug Screen (05/27/25 01:24) Vital Signs Date Time Temp Pulse Resp B/P (MAP) Pulse Ox O2 Delivery O2 Flow Rate FiO2 05/27/25 01:16 97.4 105 18 140/90 (107) 96 97.4 Laboratory Tests Test 05/27/25 00:57 White Blood Count 8.0 10^3/uL (4.4-10.8) # Medications Medications Dose Ordered Sig/Toño Route Start Time Stop Time Status Last Admin Dose Admin Dextrose/Sodium Chloride 1,000 ml @ 75 mls/hr [id number] ONCE IV 05/27/25 01:30 05/27/25 14:49 05/27/25 01:46 Departure 1 Departure Time of Disposition: 06:00 Impression: Primary Impression: Hypoglycemia Additional Impression: Accidental overdose of insulin Disposition: LEFT AWOL/ELOPED Condition: Guarded Discharged With: Self Critical Care Note Critical Care Time?: Yes (35 min-critical care time only) Critical care comment: Critical care time including multiple bedside re-evaluations, review of lab and imaging studies, and discussion of the case with the admitting provider. Patient is high risk for metabolic decompensation. Stability Stability form required: No Heart Score Heart Score: Heart Score Response (Comments) Value History N/A 0 EKG N/A 0 Age N/A 0 Risk Factors N/A 0 Troponin N/A 0 Total 0 I personally scribed for DOE WARREN MD ([email or web address]) on 05/27/25 at 01:37. Electronically submitted by Rell Cotton ([employer]). I personally scribed for DOE WARREN MD ([email or web address]) on 05/27/25 at 02:36. Electronically submitted by Rell Cotton ([employer]). DOE WARREN MD May 27, 2025 01:37
[2025-05-27] MEDS: D5W/SOD CHL 0.45% 1,000 ML IV ONE (01:46)
--- NOTE | 2025-05-27 02:30 | DVH ---
EXAM: XY CHEST PORTABLE CLINICAL HISTORY: h hypoglycemia TECHNIQUE: Single AP view of the chest WID: COMPARISON: XY CHEST PORTABLE on DOS: 04/15/25, FINDINGS: Lines and tubes: None Chest: The heart size and pulmonary vasculature is within normal limits. No pleural effusion, pneumothorax, or consolidation. The osseous structures are grossly intact. IMPRESSION: No acute cardiopulmonary abnormality.
[2025-05-27 02:45] LABS: Total Cells Counted 100.0 (100)
[2025-05-27] MEDS ORDERED: NITROGLYCERIN 0.4 MG SL TAB SL PRN (03:45)
[2025-05-27] MEDS ORDERED: MORPHINE SULFATE INJ 2 MG/ml SYRG IV PRN (03:45)
[2025-05-27] MEDS ORDERED: LORazepam 2MG/ML-1ML VIAL IV PRN (04:15)
--- NOTE | 2025-05-27 04:37 | DVHHP2 ---
History of Present Illness History of Present Illness This is a 30-year-old male with past medical history of IDDM, [place], depression, anxiety came to ED with the complain of accidentally took overdose of insulin, unable to recall how much insulin he got. As per patient" I took too much insulin" and feeling shakiness, dizziness, weakness, sweating, palpitation and headache. Patient also complained of mild abdominal pain, 2/10, localized, burning, no aggravating factors but mildly relives with drinking water. Patient received 15 units insulin Lantus twice a day. He briefly went outside of [facility] and had a syncopal episode and came back to ED by himself. Patient drink alcohol daily and last drink was four beers at 9 p.m. Patient discharged from [facility] on April 17 with after treated diabetic ketoacidosis. Currently denies any chest pain, SOB, cough, nausea, vomiting, diarrhea. Past Medical History: Anxiety, Depression, IDDM, [place], Diabetic ketoacidosis Surgical History: NONE Family History: non contributory Social History: Smoke Cigarettes pack /day, Alcohol drinks daily, M ethamphetamine. Lives In: Homeless ALLERGY: PCN, PIPERACILLIN TAZOBACTAM. Review of Systems Constitutional: Yes: Weakness; No: Fever, Chills, Sweats, Malaise, Other (Sweating) Eyes: No: Pain, Vision change, Conjunctivae inflammation, Eyelid inflammation, Other, Redness ENT: No: Ear pain, Ear discharge, Nose pain, Nose discharge, Nose congestion, Mouth pain, Mouth swelling, Throat pain, Throat swelling, Other Respiratory: No: Cough, Dry, Shortness of breath, SOB with excertion, Wheezing, Hemoptysis, Pleuritic Pain, Sputum, Wheezing, Other Cardiovascular: Palpitations; No: Chest Pain, Orthopnea, Paroxysmal Noc. Dyspne a, Edema, Lt Headedness, Other Gastrointestinal: No: Nausea, Vomiting, Abdominal Pain, Diarrhea, Constipation, Melena, Hematochezia, Other Genitourinary: No Dysuria, No Frequency, No Incontinence, No Hematuria, No Retention, No Other Musculoskeletal: No: other, neck pain, shoulder pain, arm pain, back pain, hand pain, leg pain, foot pain Skin: No: Rash, Lesions, Jaundice, Bruising, Other Neurological: No: Weakness, Numbness, Incoordination, Change in speech, Confusion, Seizures, Other (Mild headache) Allergies: Coded Allergies: Penicillin G (Verified Allergy, Unknown, 07/01/22) Penicillins (Unverified Allergy, Unknown, 07/01/22) Piperacillin (Verified Allergy, Unknown, 10/23/23) Tazobactam (Verified Allergy, Unknown, 10/23/23) Exam Vital Signs Vital Signs Date Time Temp Pulse Resp B/P (MAP) Pulse Ox O2 Delivery O2 Flow Rate FiO2 05/27/25 01:16 97.4 105 18 140/90 (107) 96 97.4 General Appearance: Alert, Oriented X3 HEENT: PERRLA, EOMI Respiratory: Clear to auscultation, Normal air movement Cardiovascular: Regular rate, Normal S1, Normal S2 Abdominal: Normal bowel sounds, Soft, Other (Mild tender on deep palpation) Extremities: No clubbing, No cyanosis, No edema Skin: No rashes, No breakdown Neuro: Normal gait, Normal speech Labs/Xrays Labs Test 05/27/25 02:06 05/27/25 01:09 05/27/25 00:57 Range/Units Troponin I High Sensitivity < 3 L </=54 ng/L POC Glucose 63 L 70-106 mg/dl White Blood Count 8.0 # 4.4-10.8 10^3/uL Red Blood Count 5.12 4.5-5.90 10^6/uL Hemoglobin 16.3 13.5-17.5 g/dL Hematocrit 47.6 41.0-53.0 % Mean Corpuscular Volume 93.0 80.0-100.0 fL Mean Corpuscular Hemoglobin 31.9 28.0-32.0 pg Mean Corpuscular Hemoglobin Concent 34.3 32.0-36.0 g/dL Red Cell Distribution Width 13.6 11.8-14.3 % Platelet Count 258 140-450 10^3/uL Mean Platelet Volume 8.5 6.9-10.8 fL Neutrophils (%) (Auto) 37.0-80.0 % Lymphocytes (%) (Auto) 10.0-50.0 % Monocytes (%) (Auto) 0.0-12.0 % Basophils (%) (Auto) 0.0-2.0 % Neutrophils # (Auto) 1.6-8.6 10 ^3/uL Lymphocytes # (Auto) 0.4-5.4 10 ^3/uL Monocytes # (Auto) 0-1.3 10 ^3/uL Differential Total Cells Counted 100.0 100 Neutrophils % (Manual) 28 L 37.0-80.0 Band Neutrophils % (Manual) 3 Lymphocytes % (Manual) 44 10.0-50.0 Monocytes % (Manual) 15 H 0-12 Eosinophils % (Manual) 3 0-7 Basophils % (Manual) 0 0.0-2.0 Metamyelocytes % (manual) 2 Myelocytes % (Manual) 0 Promyelocytes % (Manual) 0 Blast Cells % (Manual) 3 Reactive Lymphocytes 2 Platelet Estimate Adequate Sodium Level 146 #H 136-145 mmol/L Potassium Level 3.6 3.5-5.1 mmol/L Chloride Level 107 98-107 mmol/L Carbon Dioxide Level 24 20-31 mmol/L Anion Gap 15 5-15 Blood Urea Nitrogen 12 9-23 mg/dL Creatinine 0.69 L 0.700-1.30 mg/dL Glomerular Filtration Rate Calc 127 >90 mL/min BUN/Creatinine Ratio 17.4 10.0-20.0 Serum Glucose 71 #L 74-106 mg/dL Calcium Level 9.4 8.7-10.4 mg/dL B-Type Natriuretic Peptide 2.75 0-100 pg/mL Plasma/Serum Blood Alcohol 255.4 H <10 mg/dL Assessment/Plan Assessment/Plan # Hypoglycemia due to overdose of insulin -Patient came with symptomatic overdose of insulin -ED blood sugar level 63>71, received dextrose IV fluids. -Troponin 3>3 -CXR- no cardiopulmonary abnormality -Monitor blood sugar # IDDM -Patient get 15 units of insulin twice a day -HB A1c -12.2 On 05/20/2025 -Hold insulin for now -Monitor blood sugar -Resuming insulin when blood sugar level ranges 140 to 180 # Alcohol use disorder -patient drinks alcohol daily -last drink 9:00 p.m. proximately four beers -blood alcohol level 255.4 -CIWA score-3 -IV lorazepam ordered p.r.n. for seizures -start Librium, with tapering dose if needed. -thiamine 100 mg p.o. daily -Folic acid 1 mg p.o. daily -follow liver function test, uds # Anxiety and depression -Not on any medication - homeless # Hypernatremia -SERUM SODIUM-146 -D51/2 NSS received. -Will follow BMP # Diet: diabetic diet # GI prophylaxis: Pantoprazole 40 po mg daily # DVT prophylaxis: With ambulating Goals of care discussion, more than 29 minute spent. Full code status, Plan discussed with Dr. Douglas Plan discussed with: Patient, Other (NURSE) Date of Service: May 27, 2025 Billing Provider: FLEX DOUGLAS MD Common Visit Codes: 73242-LOPAHWZ INP/OBS CARE (HIGH) Secondary Visit Codes: 41800-KQKFSYJI CARE PLAN 30 MINUTES DIMAS TUBBS RESIDENT May 27, 2025 04:37
[2025-05-27 05:44] LABS: Alanine Aminotransferase 38.0 U/L (7-40)
[2025-05-27 05:52] LABS: Bilirubin, Total 0.3 mg/dL (0.2-1.0)
--- NOTE | 2025-05-27 08:24 | DVHDSRES ---
Discharge Summary Date of Admission Resident Creating Document: DIMAS TUBBS RESIDENT May 27, 2025 at 03:42 Date of Discharge: May 27, 2025 Admitting Diagnosis Hypoglycemia due to insulin overdose. Labs/Diagnostic Data: Laboratory Results Test 05/27/25 02:06 05/27/25 01:09 05/27/25 00:57 Total Bilirubin 0.3 mg/dL (0.2-1.0) Aspartate Amino Transferase (AST) 48 U/L (13-40) Alanine Aminotransferase (ALT) 38 U/L (7-40) Troponin I High Sensitivity < 3 ng/L (</=54) POC Glucose 63 mg/dl (70-106) White Blood Count 8.0 10^3/uL (4.4-10.8) Red Blood Count 5.12 10^6/uL (4.5-5.90) Hemoglobin 16.3 g/dL (13.5-17.5) Hematocrit 47.6 % (41.0-53.0) Mean Corpuscular Volume 93.0 fL (80.0-100.0) Mean Corpuscular Hemoglobin 31.9 pg (28.0-32.0) Mean Corpuscular Hemoglobin Concent 34.3 g/dL (32.0-36.0) Red Cell Distribution Width 13.6 % (11.8-14.3) Platelet Count 258 10^3/uL (140-450) Mean Platelet Volume 8.5 fL (6.9-10.8) Neutrophils (%) (Auto) % (37.0-80.0) Lymphocytes (%) (Auto) % (10.0-50.0) Monocytes (%) (Auto) % (0.0-12.0) Basophils (%) (Auto) % (0.0-2.0) Neutrophils # (Auto) 10 ^3/uL (1.6-8.6) Lymphocytes # (Auto) 10 ^3/uL (0.4-5.4) Monocytes # (Auto) 10 ^3/uL (0-1.3) Differential Total Cells Counted 100.0 (100) Neutrophils % (Manual) 28 (37.0-80.0) Band Neutrophils % (Manual) 3 Lymphocytes % (Manual) 44 (10.0-50.0) Monocytes % (Manual) 15 (0-12) Eosinophils % (Manual) 3 (0-7) Basophils % (Manual) 0 (0.0-2.0) Metamyelocytes % (manual) 2 Myelocytes % (Manual) 0 Promyelocytes % (Manual) 0 Blast Cells % (Manual) 3 Reactive Lymphocytes 2 Platelet Estimate Adequate Sodium Level 146 mmol/L (136-145) Potassium Level 3.6 mmol/L (3.5-5.1) Chloride Level 107 mmol/L (98-107) Carbon Dioxide Level 24 mmol/L (20-31) Anion Gap 15 (5-15) Blood Urea Nitrogen 12 mg/dL (9-23) Creatinine 0.69 mg/dL (0.700-1.30) Glomerular Filtration Rate Calc 127 mL/min (>90) BUN/Creatinine Ratio 17.4 (10.0-20.0) Serum Glucose 71 mg/dL (74-106) Calcium Level 9.4 mg/dL (8.7-10.4) B-Type Natriuretic Peptide 2.75 pg/mL (0-100) Plasma/Serum Blood Alcohol 255.4 mg/dL (<10) Other Laboratory Tests 05/27/25 00:57 Brief Hx & Hospital Course: This is a 30-year-old male with past medical history of IDDM, [place], depression, anxiety came to ED with the complain of accidentally took overdose of insulin, unable to recall how much insulin he got. As per patient" I took too much insulin" and feeling shakiness, dizziness, weakness, sweating, palpitation and headache. Patient also complained of mild abdominal pain, 2/10, localized, burning, no aggravating factors but mildly relives with drinking water. Patient received 15 units insulin Lantus twice a day. He briefly went outside of hospital and had a syncopal episode and came back to ED by himself. Patient drink alcohol daily and last drink was four beers at 9 p.m. Patient discharged from [facility] on April 17 with after treated diabetic ketoacidosis. Currently denies any chest pain, SOB, cough, nausea, vomiting, diarrhea. Patient eloped. Condition undetermined on discharged. Condition at Discharge: Undetermined Final Diagnosis/Problems List # Hypoglycemia due to accidental overdose of insulin # Insulin dependent diabetes mellitus # Alcohol use disorder # Anxiety and depression # Hypernatremia Discharge Disposition: Eloped Discharge Instruct/Medications Scheduled Insulin Glargine (Lantus Solostar), 30 UNITS SC BID Insulin Glargine (Lantus), 30 UNIT SC Q12HR Durable Medical Equipment Blood Glucose Monitoring Suppl (D-Care Glucometer Kit/Glu W/Device), KIT SC 5XD PRN, (DME) Blood Glucose Monitoring Suppl (D-Care Glucometer Kit/Glu W/Device), KIT XX, (DME) Insulin Syringe/Needle U-100 (Advocate Insulin Syringe/), ML XX TID PRN, (DME) Insulin Syringe/Needle U-100 ([employer]ocate Insulin Syringe/), APPLIC XX, (DME) Insulin Syringe/Needle U-100 (Advocate Insulin Syringe/), MG XX, (DME) Insulin Syringes (Disposable) (Bd Insulin Syringe Luer-L), ML XX 6XD, (DME) Lancets (Freestyle Lancets), BOX XX, (DME) Discharge Statement: "Patient was advised to return to the ER or call 911 if any headaches, dizziness, shortness of breath, chest pain, abdominal pain, bleeding, fevers, or worsening of medical condition. Patient was counseled about treatment plan, medications, possible side effects, patientverbalized understanding. All questions were answered to the best of my ability. This discharge took greater then 30 minutes in planning, reviewing documentation, counseling the patient, and discussing with other team members." ASSESSMENT ASSESSMENT Assessment DIMAS TUBBS RESIDENT May 27, 2025 08:24
[2025-05-27] MEDS ORDERED: FOLIC ACID 1 MG TAB PO SCH (10:00)
[2025-05-27] MEDS ORDERED: THIAMINE HCL 100 MG TAB PO SCH (10:00)
== END 2025-05-27 06:06 | disposition left against medical advice (07) | DRG 812 ==
LOC: ER 00:31 → OVERFLOW 03:42
PROVIDERS: ADMIT Internal Medicine; ATTEND Internal Medicine
DX: T38.3X1A Poisoning by insulin and oral hypoglycemic [antidiabetic] drugs, accidental (unintentional), initial encounter (principal); E11.649 Type 2 diabetes mellitus with hypoglycemia without coma; E87.0 Hyperosmolality and hypernatremia; F10.129 Alcohol abuse with intoxication, unspecified; F32.A Depression, unspecified; F41.9 Anxiety disorder, unspecified; F17.210 Nicotine dependence, cigarettes, uncomplicated; Z88.0 Allergy status to penicillin; I25.2 Old myocardial infarction; Z79.4 Long term (current) use of insulin; Z59.00 Homelessness unspecified; Y92.89 Other specified places as the place of occurrence of the external cause; Y90.8 Blood alcohol level of 240 mg/100 ml or more
CPT/HCPCS: 36415; 71045; 80048; 80320; 82247; 82962; 83880; 84450; 84460; 84484; 85007; 85027; 96365; 99291; G0378

== ENCOUNTER 2025-06-12 19:59 | Emergency (ER) | payer MEDICAID ==
[~2025-06-12] VITALS: Ht 172.7 cm; Wt 68.2 kg
--- NOTE | 2025-06-12 20:06 | ED.PDOC ---
History of present illness HPI Comments 30 y.o male with PMHx of DM and DKA, presents to the ED via EMS for an evaluation of hyperglycemia. EMS reports patient is currently homeless, was found outside a restaurant by manger, laying on the floor vomiting. EMS reports BG read HI multiple times. Patient reports running out of his insulin for the past 2-3 days and has been feeling sick with abdominal pain, nausea, vomiting and total malaise state. Patient denies any fever, chills, SOB, chest pain, diarrhea. Time Seen by MD: 20:00 Primary Care Provider: n/a History of present illness: Nurses Notes, It Service Delivery Manager Notes, Medications, Allergies Allergies: Coded Allergies: Penicillin G (Verified Allergy, Unknown, 07/01/22) Penicillins (Unverified Allergy, Unknown, 07/01/22) Piperacillin (Verified Allergy, Unknown, 10/23/23) Tazobactam (Verified Allergy, Unknown, 10/23/23) Home Meds Active Scripts Insulin Syringe/Needle U-100 (ADVOCATE INSULIN SYRINGE/) 0.5 Mg/31 G Mis, MG XX, #30 Prov:DOC PUENTE MD 04/17/25 Lancets (Freestyle Lancets) Lancets Mis, BOX XX, #1 Prov:DOC PUENTE MD 04/17/25 Blood Glucose Monitoring Suppl (D-Care Glucometer Kit/Glu W/Device) 1 Kit Kit, KIT XX, #1 Prov:DOC PUENTE MD 04/17/25 Insulin Glargine (Lantus) 100 Unit/Ml Inj, 30 UNIT SC Q12HR for 30 Days, #30 INJ Prov:DOC PUENTE MD 04/17/25 Insulin Glargine (Lantus Solostar) 100 Unit/Ml Inj, 30 UNITS SC BID for 30 Days, #1 INJ 5 Refills Prov:EDGARDO SILVERIO MD 11/07/24 Insulin Syringes (Disposable) (Bd Insulin Syringe Luer-L) 1 Ml Mis, ML XX 6XD, #120 3 Refills Prov:EDGARDO SILVERIO MD 11/07/24 Insulin Syringe/Needle U-100 (ADVOCATE INSULIN SYRINGE/) 0.5 Mg/31 G Mis, APPLIC XX, #100 Use as directed Prov:EDGARDO SILVERIO MD 11/07/24 Insulin Syringe/Needle U-100 (ADVOCATE INSULIN SYRINGE/) 1 Ml/31 G Mis, ML XX TID PRN, #100 3 Refills use for insulin administration Prov:EDGARDO SILVERIO MD 11/07/24 Blood Glucose Monitoring Suppl (D-Care Glucometer Kit/Glu W/Device) 1 Kit Kit, KIT SC 5XD PRN, #1 1 Refill please check serum glucose before each meal. Prov:EDGARDO SILVERIO MD 11/07/24 Information Source: Patient, Emergency Med Personnel Mode of Arrival: EMS Timing: Hours Duration: Since onset Prehospital treatment: Accucheck (HI) [place]: Shaky History of: Diabetes, Insulin use Modifying factors: Nothing Associated signs and symptoms: Abdominal Pain, Nausea, Vomiting Past Medical History PAST MEDICAL HISTORY: Anxiety, Depression, DM, [place] Surgical History: Denies all surgeries Family History Family History: Reviewed,noncontributory to illness Social History Smoker: Cigarettes Alcohol: Heavy Drugs: Methamphetamine Lives In: Homeless Constitutional: denies: chills, diaphoresis, fatigue, fever, malaise, sweats, weakness, others EENTM: denies: blurred vision, double vision, ear bleeding, ear discharge, ear drainage, ear pain, ear ringing, eye pain, eye redness, hearing loss, mouth pain, mouth swelling, nasal discharge, nose bleeding, nose congestion, nose pain, photophobia, tearing, throat pain, throat swelling, voice changes, others Respiratory: denies: cough, hemoptysis, orthopnea, SOB at rest, shortness of breath, SOB with excertion, stridor, wheezing, others Cardiovascular: denies: chest pain, dizzy spells, diaphoresis, Dyspnea on exertion, edema, irregular heart beat, left arm pain, lightheadedness, palpitations, PND, syncope, others Gastrointestinal: reports: abdominal pain, nausea, vomiting; denies: abdomen d istended, blood streaked bowels, constipated, diarrhea, dysphagia, difficulty swallowing, hematemesis, melena, poor appetite, poor fluid intake, rectal bleeding, rectal pain, others Genitourinary: denies: burning, dysuria, flank pain, frequency, hematuria, incontinence, penile discharge, penile sore, pain, testicle pain, testicle swelling, urgency, others Neurological: denies: dizziness, fainting, headache, left sided numbness, left sided weakness, numbness, paresthesia, pre-existing deficit, right sided numbness, right sided weakness, seizure, speech problems, tingling, tremors, weakness, others Musculoskeletal: denies: back pain, gout, joint pain, joint swelling, muscle pain, muscle stiffness, neck pain, others Integumetry: denies: bruises, change in color, change in hair/nails, dryness, laceration, lesions, lumps, rash, wounds, others Allergic/Immunocompromised: denies: Difficulty Healing, Frequent Infections, Hives, Itching, others Hematologic/Lymphatic: denies: anemia, blood clots, easy bleeding, easy bruising, swollen glands, others Endocrine: reports: flushing; denies: excessive hunger, excessive sweating, excessive thirst, excessive urination, intolerance to cold, intolerance to heat, unexplained weight gain, unexplained weight loss, others All Other Systems: Reviewed and Negative Physical Exam General Appearance: No Apparent Distress, Normal HEENT: Normal ENT Inspection, Pharynx Normal, TMs Normal Neck: Full Range of Motion, Non-Tender, Normal, Normal Inspection Respiratory: Chest Non-Tender, Lungs Clear, No Accessory Muscle Use, No Respiratory Distress, Normal Breath Sounds Cardiovascular: No Edema, No JVD, No Murmur, No Gallop, Normal Peripheral Pulses, Regular Rate/Rhythm Breast Exam: Deferred Gastrointestinal: No Organomegaly, Non Tender, No Pulsatile Mass, Normal Bowel Sounds, Soft Genitalia: Deferred Pelvic: Deferred Rectal: Deferred Extremities: No calf tenderness, Normal capillary refill, Normal inspection, Normal range of motion, Non-tender, No pedal edema Musculoskeletal : Apperance: Normal Neurologic: Alert, senior compensation analyst II-XII nml as 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 Was a procedure done?: No Differential Diagnosis (DM) Differential Diagnosis: Dehydration, Diabetic Coma, DKA, Electrolyte Abnormality, Gastritis, Gastroenteritis, Hepatitis, Hyperglycemia, Hyperosmolar State, Pancreatitis X-Ray, Labs, Meds, VS Vital Signs Date Time Temp Pulse Resp B/P (MAP) Pulse Ox O2 Delivery O2 Flow Rate FiO2 06/12/25 20:08 98.4 82 20 122/84 (97) 98 98.4 Lab Test 06/12/25 23:13 06/12/25 20:49 Range/Units POC Glucose 554 *H 70-106 mg/dl White Blood Count 3.4 L 4.4-10.8 10^3/uL Red Blood Count 4.72 4.5-5.90 10^6/uL Hemoglobin 15.4 13.5-17.5 g/dL Hematocrit 44.3 41.0-53.0 % Mean Corpuscular Volume 93.8 80.0-100.0 fL Mean Corpuscular Hemoglobin 32.6 H 28.0-32.0 pg Mean Corpuscular Hemoglobin Concent 34.7 32.0-36.0 g/dL Red Cell Distribution Width 12.5 11.8-14.3 % Platelet Count 172 140-450 10^3/uL Mean Platelet Volume 9.0 6.9-10.8 fL Neutrophils (%) (Auto) 47.1 37.0-80.0 % Lymphocytes (%) (Auto) 32.1 10.0-50.0 % Monocytes (%) (Auto) 16.1 H 0.0-12.0 % Eosinophils (%) (Auto) 3.4 0.0-7.0 % Basophils (%) (Auto) 1.3 0.0-2.0 % Neutrophils # (Auto) 1.6 1.6-8.6 10 ^3/uL Lymphocytes # (Auto) 1.1 0.4-5.4 10 ^3/uL Monocytes # (Auto) 0.6 0-1.3 10 ^3/uL Eosinophils # (Auto) 0.1 0-0.8 10 ^3/uL Basophils # (Auto) 0 0-0.2 10 ^3/uL Nucleated Red Blood Cells 0.1 % Sodium Level 129 L 136-145 mmol/L Potassium Level 4.1 3.5-5.1 mmol/L Chloride Level 88 L 98-107 mmol/L Carbon Dioxide Level 27 20-31 mmol/L Anion Gap 14 5-15 Blood Urea Nitrogen 6 L 9-23 mg/dL Creatinine 0.95 0.700-1.30 mg/dL Glomerular Filtration Rate Calc 110 >90 mL/min BUN/Creatinine Ratio 6.3 L 10.0-20.0 Serum Glucose 656 *H 74-106 mg/dL Calcium Level 8.7 8.7-10.4 mg/dL Total Bilirubin 0.8 0.2-1.0 mg/dL Aspartate Amino Transferase (AST) 42 H 13-40 U/L Alanine Aminotransferase (ALT) 52 H 7-40 U/L Alkaline Phosphatase 145 H 46-116 U/L Total Protein 6.4 5.7-8.2 g/dL Albumin 4.3 3.2-4.8 g/dL Current Medications Medications (Trade) Dose Ordered Sig/Toño Route Start Time Stop Time Status Last Admin Sodium Chloride 1,000 ml @ 1,000 mls/hr Q1H ONCE IV 06/12/25 21:15 06/12/25 22:14 DC 06/12/25 21:30 Insulin Human Regular (InsuLIN R) 15 units ONCE ONCE IV 06/12/25 22:15 06/12/25 22:16 DC 06/12/25 23:21 X-Ray, Labs, Meds, VS Comment Imaging: X-rays and CT scans were reviewed and interpreted by this provider, imaging shows no fractures and no pathological disease. Pending radiology review. Laboratory: Labs reviewed and interpreted by this provider. Elevated blood sugar but no signs of DKA Patient has been discharged home with insulin Patient has prior medical visits reviewed. Med reconciliation performed Vital signs reviewed Time of 1ST Reevaluation: 20:06 Reevaluation 1ST: Unchanged Patient Education/Counseling: Diagnosis, Treatment, Prognosis, Need For Follow Up (Follow up with PCP next available appointment. Return to emergency department symptoms worsen.) Family Education/Counseling: No Family Present SEPSIS Sepsis Screen Physician Orders Chest Portable (06/12/25 20:39) Urinalysis (06/12/25 20:39) Vital Signs Date Time Temp Pulse Resp B/P (MAP) Pulse Ox O2 Delivery O2 Flow Rate FiO2 06/12/25 20:08 98.4 82 20 122/84 (97) 98 98.4 Laboratory Tests Test 06/12/25 20:49 White Blood Count 3.4 10^3/uL (4.4-10.8) L Medications Medications Dose Ordered Sig/Toño Route Start Time Stop Time Status Last Admin Dose Admin Insulin Human Regular 15 units ONCE ONCE IV 06/12/25 22:15 06/12/25 22:16 DC 06/12/25 23:21 Sodium Chloride 1,000 ml @ 1,000 mls/hr Q1H ONCE IV 06/12/25 21:15 06/12/25 22:14 DC 06/12/25 21:30 Departure 1 Departure Time of Disposition: 00:55 Impression: Primary Impression: Diabetes mellitus with hyperglycemia Qualified Codes: E10.65 - Type 1 diabetes mellitus with hyperglycemia Disposition: 01 HOME / SELF CARE / HOMELESS Condition: Fair e-Prescriptions Insulin Syringe/Needle U-100 (ADVOCATE INSULIN SYRINGE/) 1 Ml/31 G Mis ML XX TID PRN, #100 3 Refills use for insulin administration Prov: ERIN PADILLA 06/13/25 Discharged With: Self Critical Care Note Critical Care Time?: No Stability Stability form required: No I personally scribed for ERIN PADILLA ([email or web address]) on 06/12/25 at 20:06. Electronically submitted by Carri Chen ([facility]). ERIN PADILLA Jun 12, 2025 20:06
--- NOTE | 2025-06-12 21:05 | DVH ---
EXAM: XY CHEST PORTABLE DATE OF SERVICE: 06/12/2025 08:45 PM INDICATION: sob TECHNIQUE: Single frontal view. COMPARISON: XY CHEST PORTABLE on DOS: 05/27/25, XY CHEST PORTABLE on DOS: 04/15/25, XY CHEST PORTABLE on DOS: 11/12/24, XY CHEST PORTABLE on DOS: 11/05/24, XY CHEST PORTABLE on DOS: 08/04/24 FINDINGS: No focal consolidations. No pleural effusion or pneumothorax. Cardiac silhouette is within normal limits. IMPRESSION: 1. No focal consolidations.
[2025-06-12 21:12] LABS: Hematocrit 44.3 % (41.0-53.0); Hemoglobin 15.4 g/dL (13.5-17.5); Mean Corpuscular Hemoglobin 32.6 pg (28.0-32.0); Mean Corpuscular Volume 93.8 fL (80.0-100.0); Nucleated Red Blood Cells % 0.1 %
[2025-06-12 21:28] LABS: Albumin 4.3 g/dL (3.2-4.8); Anion Gap 14 (5-15); BUN/Creatinine Ratio 6.3 (10.0-20.0); Bilirubin, Total 0.8 mg/dL (0.2-1.0); Calcium 8.7 mg/dL (8.7-10.4); Carbon Dioxide 27 mmol/L (20-31); Potassium 4.1 mmol/L (3.5-5.1); Total Protein 6.4 g/dL (5.7-8.2)
[2025-06-12] MEDS: SODIUM CHLORIDE 0.9% 1,000 ML IV ONE (21:30)
[2025-06-12 21:32] LABS: Alanine Aminotransferase 52 U/L (7-40); Alkaline Phosphatase 145 U/L (46-116); Blood Urea Nitrogen 6 mg/dL (9-23); Chloride 88 mmol/L (98-107); Sodium 129 mmol/L (136-145)
[2025-06-12 21:55] LABS: Glucose 656 mg/dL (74-106)
[2025-06-12] MEDS: InsuLIN REG 1unit/0.01ml Soln (100units/ml) IV ONE (23:21)
[2025-06-13] MEDS ORDERED: [UNRECOGNIZED DRUG - CODE] XX (00:56)
[2025-06-13 01:22] VITALS: BP 125/63; TEMP 97.5
[2025-06-13 01:23] VITALS: PULSE 85; RESP 18; O2SAT 98
== END 2025-06-13 01:24 | disposition home or self-care (01) ==
LOC: EDBD 19:59 → ER 19:59
DX: E10.65 Type 1 diabetes mellitus with hyperglycemia (principal); F17.210 Nicotine dependence, cigarettes, uncomplicated; F19.90 Other psychoactive substance use, unspecified, uncomplicated; F10.10 Alcohol abuse, uncomplicated; F41.9 Anxiety disorder, unspecified; F32.A Depression, unspecified; I21.9 Acute myocardial infarction, unspecified; Z88.0 Allergy status to penicillin; Z79.4 Long term (current) use of insulin; Z59.00 Homelessness unspecified; Z79.899 Other long term (current) drug therapy; Y90.9 Presence of alcohol in blood, level not specified
CPT/HCPCS: 36415; 71045; 80053; 82947; 85025; 96361; 96374; 99284; J1815; J7030; 82962

== ENCOUNTER 2025-06-14 15:11 | Emergency (ER) | payer MEDICAID | END 2025-06-14 15:23 | disposition left against medical advice (07) | LOC: EDBD 15:11 → ER 15:11 | DX: R51.9 Headache, unspecified (principal); Z53.21 Procedure and treatment not carried out due to patient leaving prior to being seen by health care provider ==

== ENCOUNTER 2025-08-07 23:24 | Inpatient (IN) | payer MEDICAID ==
[~2025-08-07] VITALS: Ht 175.3 cm; Wt 70.3 kg
[2025-08-08] VITALS (12 sets, daily range): BP systolic 95–122; BP diastolic 42–76; PULSE 70–100; RESP 13–19; TEMP 98.6; O2SAT 94–100
[2025-08-08] MEDS: PANTOPRAZOLE 40 MG/10 ML VIAL INJ IV ONE (01:04)
[2025-08-08] MEDS: ONDANSETRON HCL 4 MG/2 ML VIAL IV ONE (01:04)
[2025-08-08] MEDS: SODIUM CHLORIDE 0.9% 1,000 ML IV ONE ×2 (01:04→04:45)
--- NOTE | 2025-08-08 01:12 | ED.PDOC ---
History of Present Illness HPI Comments 30-year-old male who is brought in by ambulance for chief complaint of abdominal pain, nausea, vomiting, and hyperglycemia. Patient reports onset of GI symptoms in addition to noticing his blood glucose being elevated, this morning. History of diabetes. Patient reports on being out of his 15 units of insulin that he takes after every meal for over the past few days. Accu-Chek by EMS on scene was a 436. No reported bloody or bilious vomitus, diarrhea, constipation, further associated symptoms. REVIEW OF SYSTEMS: General: No fever, no chills, HEENT: No neck pain, no blurred vision Cardiac: No chest pain. No palpitations. Lungs: No shortness of breath, GI: Abdominal pain, nausea, vomiting Musculoskeletal: No joint pain , no back pain Skin: No rash, no wound Endocrine: Hyperglycemia Neuro: No headache, no dizziness, no syncope PHYSICAL EXAM: General: Awake, alert and oriented. No acute distress. Skin: Skin in warm, dry and intact without rashes or lesions. HEENT: The head is normocephalic and atraumatic. Conjunctivae are clear without exudates or hemorrhage. Sclera is non-icteric. Neck: Normal range of motion. No JVD. Cardiac: Regular rate Respiratory: No signs of respiratory distress. No Stridor. Gastrointestinal: Actively vomiting. Extremities: Upper and lower extremities are atraumatic in appearance without deformity. Neurological: The patient is awake, alert and oriented to person, place, and time with normal speech. Speech is clear. There is no facial asymmetry. Normal gait. Psychiatric: Appropriate mood and affect. Good judgement and insight. Chief Complaint: Nausea/Vomiting Time Seen by MD: 00:40 Primary Care Provider: n/a Allergies: Coded Allergies: Penicillin G (Verified Allergy, Unknown, 07/01/22) Penicillins (Unverified Allergy, Unknown, 07/01/22) Piperacillin (Verified Allergy, Unknown, 10/23/23) Tazobactam (Verified Allergy, Unknown, 10/23/23) Home Meds Active Scripts Insulin Syringe/Needle U-100 (ADVOCATE INSULIN SYRINGE/) 1 Ml/31 G Mis, ML XX TID PRN, #100 3 Refills use for insulin administration Prov:ERIN PADILLA 06/13/25 Insulin Syringe/Needle U-100 (ADVOCATE INSULIN SYRINGE/) 0.5 Mg/31 G Mis, MG XX, #30 Prov:DOC PUENTE MD 04/17/25 Lancets (Freestyle Lancets) Lancets Mis, BOX XX, #1 Prov:DOC PUENTE MD 04/17/25 Blood Glucose Monitoring Suppl (D-Care Glucometer Kit/Glu W/Device) 1 Kit Kit, KIT XX, #1 Prov:DOC PUENTE MD 04/17/25 Insulin Glargine (Lantus) 100 Unit/Ml Inj, 30 UNIT SC Q12HR for 30 Days, #30 INJ Prov:DOC PUENTE MD 04/17/25 Insulin Glargine (Lantus Solostar) 100 Unit/Ml Inj, 30 UNITS SC BID for 30 Days, #1 INJ 5 Refills Prov:EDGARDO SILVERIO MD 11/07/24 Insulin Syringes (Disposable) (Bd Insulin Syringe Luer-L) 1 Ml Mis, ML XX 6XD, #120 3 Refills Prov:EDGARDO SILVERIO MD 11/07/24 Insulin Syringe/Needle U-100 (ADVOCATE INSULIN SYRINGE/) 0.5 Mg/31 G Mis, APPLIC XX, #100 Use as directed Prov:EDGARDO SILVERIO MD 11/07/24 Blood Glucose Monitoring Suppl (D-Care Glucometer Kit/Glu W/Device) 1 Kit Kit, KIT SC 5XD PRN, #1 1 Refill please check serum glucose before each meal. Prov:EDGARDO SILVERIO MD 11/07/24 Mode of Arrival: EMS Past Medical History PAST MEDICAL HISTORY: Anxiety, Depression, DM, MD Surgical History: Denies all surgeries Family History Family History: Reviewed,noncontributory to illness Social History Smoker: Cigarettes Alcohol: Heavy Drugs: Methamphetamine Lives In: Homeless Was a procedure done? Was a procedure done?: No Differential Dx Considerations may include: Differential diagnoses considered include: Abdominal aortic aneurysm, MD, esophageal rupture, intestinal obstruction, mesenteric ischemia, perforated viscus or solid organ rupture, CHF with hepatomegaly, pneumonia, abscess, appendicitis, biliary disease, diverticulitis, gastritis, gastroenteritis, hepatitis, hernia, inflammatory bowel disease, pancreatitis, peptic ulcer disease, urinary tract infection X-Ray, Labs, Meds, VS Vital Signs Date Time Temp Pulse Resp B/P (MAP) Pulse Ox O2 Delivery O2 Flow Rate FiO2 08/08/25 09:24 98.4 91 16 107/52 (70) 99 98.4 08/08/25 09:24 91 16 99 Room Air* 0 21 08/08/25 08:01 97.8 88 14 102/50 (67) 100 97.8 08/08/25 08:00 89 08/08/25 07:23 Nasal Cannula* 2 28 08/08/25 07:00 93 16 113/65 (81) 100 08/08/25 06:00 89 14 120/72 (88) 100 08/08/25 05:00 99 18 118/47 (70) 92 08/08/25 04:00 104 16 110/54 (72) 98 08/08/25 03:53 97 08/08/25 03:22 98.0 100 16 121/73 (89) 98 98.0 08/08/25 03:22 100 16 98 Nasal Cannula* 2 28 08/07/25 23:35 97.9 89 18 115/76 96 97.9 Lab Test 08/08/25 06:07 08/08/25 01:17 Range/Units Sodium Level 139 137 136-145 mmol/L Potassium Level 4.7 4.5 3.5-5.1 mmol/L Chloride Level 103 95 L 98-107 mmol/L Carbon Dioxide Level 11 L 13 L 20-31 mmol/L Anion Gap 25 H 29 H 5-15 Blood Urea Nitrogen 9 14 9-23 mg/dL Creatinine 1.09 1.01 0.700-1.30 mg/dL Glomerular Filtration Rate Calc 93 102 >90 mL/min BUN/Creatinine Ratio 8.3 L 13.9 10.0-20.0 Serum Glucose 286 H 355 H 74-106 mg/dL Calcium Level 7.9 L 9.1 8.7-10.4 mg/dL Beta-Hydroxybutyric Acid > 4.500 H > 4.500 H < 0.4 mmol/L White Blood Count 6.4 4.4-10.8 10^3/uL Red Blood Count 5.31 4.5-5.90 10^6/uL Hemoglobin 16.8 13.5-17.5 g/dL Hematocrit 50.5 41.0-53.0 % Mean Corpuscular Volume 95.0 80.0-100.0 fL Mean Corpuscular Hemoglobin 31.7 28.0-32.0 pg Mean Corpuscular Hemoglobin Concent 33.3 32.0-36.0 g/dL Red Cell Distribution Width 13.5 11.8-14.3 % Platelet Count 225 140-450 10^3/uL Mean Platelet Volume 9.0 6.9-10.8 fL Neutrophils (%) (Auto) 50.2 37.0-80.0 % Lymphocytes (%) (Auto) 36.0 10.0-50.0 % Monocytes (%) (Auto) 10.5 0.0-12.0 % Eosinophils (%) (Auto) 2.3 0.0-7.0 % Basophils (%) (Auto) 1.0 0.0-2.0 % Neutrophils # (Auto) 3.2 1.6-8.6 10 ^3/uL Lymphocytes # (Auto) 2.3 0.4-5.4 10 ^3/uL Monocytes # (Auto) 0.7 0-1.3 10 ^3/uL Eosinophils # (Auto) 0.1 0-0.8 10 ^3/uL Basophils # (Auto) 0.1 0-0.2 10 ^3/uL Nucleated Red Blood Cells 0.2 % Magnesium Level 2.0 1.6-2.6 mg/dL Total Bilirubin 0.6 0.2-1.0 mg/dL Aspartate Amino Transferase (AST) 28 13-40 U/L Alanine Aminotransferase (ALT) 47 H 7-40 U/L Alkaline Phosphatase 128 H 46-116 U/L Total Protein 7.1 5.7-8.2 g/dL Albumin 4.6 3.2-4.8 g/dL Current Medications Medications (Trade) Dose Ordered Sig/Toño Route Start Time Stop Time Status Last Admin Sodium Chloride 1,000 ml @ 1,000 mls/hr Q1H ONCE IV 08/08/25 00:45 08/08/25 01:44 SD 08/08/25 01:04 Ondansetron HCl (Zofran) 4 mg ONCE ONCE IV 08/08/25 00:45 08/08/25 00:46 SD 08/08/25 01:04 Pantoprazole Sodium (Protonix) 40 mg ONCE ONCE IV 08/08/25 01:00 08/08/25 01:01 DC 08/08/25 01:04 Insulin Human Regular (InsuLIN R) 6 units ONCE ONCE IV 08/08/25 02:15 08/08/25 02:18 DC 08/08/25 03:39 Diagnostic Test (Pha) (Accu-Chek Comfort Curve T) 1 strip ONCE STAT 08/08/25 02:13 08/08/25 02:18 DC 08/08/25 02:13 Metoclopramide HCl (Reglan Injection) 5 mg ONCE ONCE IV 08/08/25 03:15 08/08/25 03:16 DC 08/08/25 03:19 Ketorolac Tromethamine (Toradol Injection) 15 mg ONCE ONCE IV 08/08/25 04:00 08/08/25 04:01 DC 08/08/25 04:01 Sodium Chloride 1,000 ml @ 1,000 mls/hr Q1H ONCE IV 08/08/25 04:45 08/08/25 05:44 DC 08/08/25 04:45 Time of 1ST Reevaluation: 01:20 Reevaluation 1ST: Unchanged Patient Education/Counseling: Treatment, Need For Follow Up Family Education/Counseling: No Family Present SEPSIS Sepsis Screen Date sepsis recognized/suspect: Aug 07, 2025 Time Sepsis recognized/suspect: 2338 Recent Procedure: No On Antibiotic Therapy: No Respiratory Rate >20: No Heart Rate >90: No Temp<36 C (96.8 F) or >38.3 C: No SBP <90 or MAP <65 mmHG: No New Acute Mental Status Change: No Is the patient on CPAP, BIPAP,: No Physician Orders Abg W/ Co-Ox (08/08/25 00:44) Saline Lock (08/08/25 00:44) Glucose Blood (Accu-Chek Comfort Curve T (08/08/25 21:15) Vital Signs Date Time Temp Pulse Resp B/P (MAP) Pulse Ox O2 Delivery O2 Flow Rate FiO2 08/08/25 09:24 98.4 91 16 107/52 (70) 99 98.4 08/08/25 09:24 91 16 99 Room Air* 0 21 08/08/25 08:01 97.8 88 14 102/50 (67) 100 97.8 08/08/25 08:00 89 08/08/25 07:23 Nasal Cannula* 2 28 08/08/25 07:00 93 16 113/65 (81) 100 08/08/25 06:00 89 14 120/72 (88) 100 08/08/25 05:00 99 18 118/47 (70) 92 08/08/25 04:00 104 16 110/54 (72) 98 08/08/25 03:53 97 08/08/25 03:22 98.0 100 16 121/73 (89) 98 98.0 08/08/25 03:22 100 16 98 Nasal Cannula* 2 28 08/07/25 23:35 97.9 89 18 115/76 96 97.9 Laboratory Tests Test 08/08/25 01:17 White Blood Count 6.4 10^3/uL (4.4-10.8) Departure 1 Departure Time of Disposition: 19:13 Impression: Primary Impression: DKA (diabetic ketoacidosis) Disposition: ADMITTED INPATIENT Condition: Serious Comments MDM: Patient admitted to hospitalist service for further treatment, evaluation and monitoring. Extensive evaluation was performed in attempt to identify or rule out: (See differential diagnosis section) The following tests were ordered, and results were reviewed by me and discussed with patient: (See diagnostic results section) Additional information was gathered from interviewing the following independent historians: EMS personnel Addressed an acute or chronic illness that poses a threat to life or bodily function: DKA Decision regarding hospitalization or escalation of hospital level of care: Risk and benefits of admission for further treatment of patient's condition was considered. Due to patient's current clinical condition, high risk of decline and poor outcome if discharged and need for further inpatient management and monitoring, patient will be admitted to the hospital. Critical Care Note Critical Care Time?: No Stability Stability form required: No Heart Score Heart Score: Heart Score Response (Comments) Value History N/A 0 EKG N/A 0 Age N/A 0 Risk Factors N/A 0 Troponin N/A 0 Total 0 I personally scribed for SANDY RAY MD ([email or web address]) on 08/08/25 at 01:12. Electronically submitted by Merrick Luciano ([email or web address]). SANDY RAY MD Aug 08, 2025 01:12
[2025-08-08 01:36] LABS: Hematocrit 50.5 % (41.0-53.0); Hemoglobin 16.8 g/dL (13.5-17.5); Mean Corpuscular Hemoglobin 31.7 pg (28.0-32.0); Mean Corpuscular Volume 95.0 fL (80.0-100.0); Nucleated Red Blood Cells % 0.2 %
[2025-08-08 01:48] LABS: Calcium 9.1 mg/dL (8.7-10.4)
[2025-08-08 01:49] LABS: Albumin 4.6 g/dL (3.2-4.8); Anion Gap 29 (5-15); BUN/Creatinine Ratio 13.9 (10.0-20.0); Bilirubin, Total 0.6 mg/dL (0.2-1.0); Blood Urea Nitrogen 14 mg/dL (9-23); Magnesium 2.0 mg/dL (1.6-2.6); Potassium 4.5 mmol/L (3.5-5.1); Sodium 137 mmol/L (136-145); Total Protein 7.1 g/dL (5.7-8.2)
[2025-08-08 01:50] LABS: Alanine Aminotransferase 47 U/L (7-40); Alkaline Phosphatase 128 U/L (46-116); Carbon Dioxide 13 mmol/L (20-31); Chloride 95 mmol/L (98-107); Glucose 355 mg/dL (74-106)
[2025-08-08] MEDS: ACCU-CHEK COMFORT CURVE STRIP VI STA (02:13)
[2025-08-08] MEDS ORDERED: DEXTROSE (50%) 50ML SYRG IV PRN ×3 (02:15→10:15)
[2025-08-08] MEDS: METOCLOPRAMIDE HCL 5MG/ml INJ 2ml VIAL IV ONE (03:19)
[2025-08-08] MEDS: METOCLOPRAMIDE HCL 5MG/ml INJ 2ml VIAL ONE (03:23)
[2025-08-08] MEDS: InsuLIN REG 1unit/0.01ml Soln (100units/ml) IV ONE (03:39)
[2025-08-08] MEDS: KETOROLAC TROMETH 30 MG/ML 1ML VIAL IV ONE (04:01)
--- NOTE | 2025-08-08 04:01 | ECG ---
[facility] Test Date: 2025-08-08 Test Time: 03:53:06 Pat Name: DODIE THAYER Department: Room: [address] [place] [address] Gender: M [employer] Worker: SAMY : 1995 Requested By: SANDY RAY Order Number: [id number] Reading MD: Juaquin Cervantes Measurements Intervals [place] Rate: 97 P: 76 [place]: 147 QRS: 89 QRSD: 106 T: -21 QT: 359 QTc: 456 Interpretive Statements Sinus rhythm Repol abnrm suggests ischemia, inferior leads Electronically Signed On 08-09-2025 9:59:05 PDT by Juaquin Cervantes Please click the below link to view image of tracing.
[2025-08-08 06:49] LABS: Chloride 103 mmol/L (98-107); Potassium 4.7 mmol/L (3.5-5.1); Sodium 139 mmol/L (136-145)
[2025-08-08 06:50] LABS: Anion Gap 25 (5-15)
[2025-08-08 06:55] LABS: BUN/Creatinine Ratio 8.3 (10.0-20.0); Blood Urea Nitrogen 9 mg/dL (9-23)
[2025-08-08 06:57] LABS: Calcium 7.9 mg/dL (8.7-10.4); Carbon Dioxide 11 mmol/L (20-31); Glucose 286 mg/dL (74-106)
[2025-08-08] MEDS ORDERED: ACETAMINOPHEN 325 MG TAB PO PRN (10:15)
[2025-08-08] MEDS ORDERED: MORPHINE SULFATE INJ 2 MG/ml SYRG IV PRN (10:15)
[2025-08-08] MEDS ORDERED: NITROGLYCERIN 0.4 MG SL TAB SL PRN (10:15)
[2025-08-08] MEDS ORDERED: DOCUSATE SOD 100 MG CAP PO PRN (10:15)
[2025-08-08] MEDS ORDERED: ONDANSETRON HCL 4 MG/2 ML VIAL IV PRN (10:15)
--- NOTE | 2025-08-08 10:24 | DVHHP2 ---
History of Present Illness Reason for Visit: Nausea and vomiting History of Present Illness José Gutierrez is a 30-year-old male with past medical history of diabetes, anxiety, depression, and ETOH dependance, who came to the hospital due to nausea and vomiting. Patient states he has had elevated blood sugars for 3 days and he has been out of his insulin for 3 days. Patient states he drinks almost every day, last drink was yesterday. Patient is seen here frequently for similar complaints. His A1c was 12.2 on 05/20/2025. Patient is homeless and noncompliant. Psych: Anxiety, Depression Endocrine: Diabetes Past Surgical History: Other (left elbow) Smoke: No ALCOHOL: heavy Drugs: None Lives: Homeless Domestic Violence: Neg Review of Systems Constitutional: No: Fever, Chills, Sweats, Weakness, Malaise, Other Eyes: No: Pain, Vision change, Conjunctivae inflammation, Eyelid inflammation, Other, Redness ENT: No: Ear pain, Ear discharge, Nose pain, Nose discharge, Nose congestion, Mouth pain, Mouth swelling, Throat pain, Throat swelling, Other Respiratory: No: Cough, Dry, Shortness of breath, SOB with excertion, Wheezing, Hemoptysis, Pleuritic Pain, Sputum, Wheezing, Other Cardiovascular: No: Chest Pain, Palpitations, Orthopnea, Paroxysmal Noc. Dyspnea, Edema, Lt Headedness, Other Gastrointestinal: Nausea, Vomiting, Abdominal Pain; No: Diarrhea, Constipation, Melena, Hematochezia, Other Genitourinary: No Dysuria, No Frequency, No Incontinence, No Hematuria, No Retention, No Other Musculoskeletal: No: other, neck pain, shoulder pain, arm pain, back pain, hand pain, leg pain, foot pain Skin: No: Rash, Lesions, Jaundice, Bruising, Other Neurological: No: Weakness, Numbness, Incoordination, Change in speech, Confusion, Seizures, Other Allergies: Coded Allergies: Penicillin G (Verified Allergy, Unknown, 07/01/22) Penicillins (Unverified Allergy, Unknown, 07/01/22) Piperacillin (Verified Allergy, Unknown, 10/23/23) Tazobactam (Verified Allergy, Unknown, 10/23/23) Medications Current Medications Medications Dose Ordered Sig/Toño Route Start Time Stop Time Status Last Admin Dose Admin Dextrose 50 ml PRN PRN IV 08/08/25 02:15 Acetaminophen/ Hydrocodone Bitart 1 tab Q4HP PRN PO 08/08/25 10:15 UNV Ondansetron HCl 4 mg Q4HP PRN IV 08/08/25 10:15 UNV Docusate Sodium 100 mg BIDPRN PRN PO 08/08/25 10:15 UNV Acetaminophen 650 mg Q6HP PRN PO 08/08/25 10:15 UNV Nitroglycerin 0.4 mg Q5MINP PRN SL 08/08/25 10:15 UNV Morphine Sulfate 2 mg Q30M PRN IV 08/08/25 10:15 UNV Sodium Chloride 1,000 ml @ 500 mls/hr Q2H IV 08/08/25 10:15 08/08/25 14:14 UNV Sodium Chloride 1,000 ml @ 250 mls/hr Q4H IV 08/08/25 14:15 08/08/25 16:14 UNV Insulin Human (Reg)/Sodium Chloride 100 ml @ 0.5 mls/hr Q24H IV 08/08/25 10:15 UNV Dextrose 50 ml UD PRN IV 08/08/25 10:15 UNV Diagnostic Test (Pha) 1 strip Q90MIN 08/08/25 10:30 UNV Insulin Glargine 15 units BID SC 08/08/25 22:00 UNV Exam Vital Signs Vital Signs Date Time Temp Pulse Resp B/P (MAP) Pulse Ox O2 Delivery O2 Flow Rate FiO2 08/08/25 09:24 98.4 91 16 107/52 (70) 99 98.4 08/08/25 09:24 Room Air* 0 21 General Appearance: Alert, Oriented X3, Cooperative, mild distress HEENT: Atraumatic, PERRLA Respiratory: Clear to auscultation, Normal air movement Cardiovascular: Regular rate, Normal S1, Normal S2 Abdominal: Normal bowel sounds, Soft Extremities: No clubbing, No cyanosis, No edema, Normal pulses Skin: No rashes, No breakdown, No significant lesion Neuro: Normal gait, Normal speech, Strength at 5/5 X4 ext, Normal tone Psych/Mental Status: Mental status NL, Mood NL Labs/Xrays Labs Test 08/08/25 06:07 08/08/25 01:17 Range/Units Sodium Level 139 136-145 mmol/L Potassium Level 4.7 3.5-5.1 mmol/L Chloride Level 103 98-107 mmol/L Carbon Dioxide Level 11 L 20-31 mmol/L Anion Gap 25 H 5-15 Blood Urea Nitrogen 9 9-23 mg/dL Creatinine 1.09 0.700-1.30 mg/dL Glomerular Filtration Rate Calc 93 >90 mL/min BUN/Creatinine Ratio 8.3 L 10.0-20.0 Serum Glucose 286 H 74-106 mg/dL Calcium Level 7.9 L 8.7-10.4 mg/dL Beta-Hydroxybutyric Acid > 4.500 H < 0.4 mmol/L White Blood Count 6.4 4.4-10.8 10^3/uL Red Blood Count 5.31 4.5-5.90 10^6/uL Hemoglobin 16.8 13.5-17.5 g/dL Hematocrit 50.5 41.0-53.0 % Mean Corpuscular Volume 95.0 80.0-100.0 fL Mean Corpuscular Hemoglobin 31.7 28.0-32.0 pg Mean Corpuscular Hemoglobin Concent 33.3 32.0-36.0 g/dL Red Cell Distribution Width 13.5 11.8-14.3 % Platelet Count 225 140-450 10^3/uL Mean Platelet Volume 9.0 6.9-10.8 fL Neutrophils (%) (Auto) 50.2 37.0-80.0 % Lymphocytes (%) (Auto) 36.0 10.0-50.0 % Monocytes (%) (Auto) 10.5 0.0-12.0 % Eosinophils (%) (Auto) 2.3 0.0-7.0 % Basophils (%) (Auto) 1.0 0.0-2.0 % Neutrophils # (Auto) 3.2 1.6-8.6 10 ^3/uL Lymphocytes # (Auto) 2.3 0.4-5.4 10 ^3/uL Monocytes # (Auto) 0.7 0-1.3 10 ^3/uL Eosinophils # (Auto) 0.1 0-0.8 10 ^3/uL Basophils # (Auto) 0.1 0-0.2 10 ^3/uL Nucleated Red Blood Cells 0.2 % Magnesium Level 2.0 1.6-2.6 mg/dL Total Bilirubin 0.6 0.2-1.0 mg/dL Aspartate Amino Transferase (AST) 28 13-40 U/L Alanine Aminotransferase (ALT) 47 H 7-40 U/L Alkaline Phosphatase 128 H 46-116 U/L Total Protein 7.1 5.7-8.2 g/dL Albumin 4.6 3.2-4.8 g/dL SEPSIS Sepsis Screen Date sepsis recognized/suspect: Aug 08, 2025 Time Sepsis recognized/suspect: 927 Recent Procedure: No On Antibiotic Therapy: No Respiratory Rate >20: No Heart Rate >90: Yes Temp<36 C (96.8 F) or >38.3 C: No SBP <90 or MAP <65 mmHG: No New Acute Mental Status Change: No Is the patient on CPAP, BIPAP,: No Physician Orders Admit (08/08/25 10:13) Code Status (08/08/25 10:13) Hydrocodone-Acet 5/325mg Tab ([place] 5/32 (08/08/25 10:15) Ondansetron Hcl (Zofran) (08/08/25 10:15) Docusate Sodium Capsule (Colace Capsule) (08/08/25 10:15) Complete Blood Count (08/09/25 04:00) Comprehensive Metabolic Panel (08/09/25 04:00) Npo (Nothing By Mouth) Diet (08/08/25 Lunch) Condition: Critical (08/08/25 10:13) Acetaminophen Tablet (Tylenol Tablet) (08/08/25 10:15) Nitroglycerin Sublingual (Ntrostat Subli (08/08/25 10:15) Morphine Sulfate Injection (08/08/25 10:15) Stat Ekg For Chest Pain (08/08/25 10:13) Notify Md Of Changes From Base (08/08/25 10:13) Vp Data For 24 Hours (08/08/25 10:13) Emergency Dysrhythmia Protocol (08/08/25 10:13) Rhythm Strips Once Every Shift (08/08/25 10:13) Oxygen By Nasal Cannula (08/08/25 10:13) Insulin Drip Protocol (08/08/25 ) Sodium Chloride 0.9% (08/08/25 10:15) Sodium Chloride 0.9% (08/08/25 14:15) Insulin Algorithm # 1 (08/08/25 10:15) Dextrose 50% Syringe (08/08/25 10:15) Glucose Blood (Accu-Chek Comfort Curve T (08/08/25 10:30) Phosphorus (08/08/25 10:13) Magnesium (08/08/25 10:13) Osmolality, Serum (08/08/25 10:13) Abg W/ Co-Ox (08/08/25 10:13) Basic Metabolic Panel (08/08/25 12:00) Basic Metabolic Panel (08/08/25 18:00) Basic Metabolic Panel (08/09/25 00:00) Basic Metabolic Panel (08/09/25 06:00) Urinalysis (08/08/25 10:13) Neurological Assessment (08/08/25 10:13) Vs/Hemodynamics .PER UNIT PROTOCOL (08/08/25 10:13) Acetone (08/08/25 10:13) Long Acting Insulin (08/08/25 10:15) Long Acting Insulin (08/08/25 22:00) D5 1/2 Ns Potassium 20meq (08/08/25 10:15) Vital Signs Date Time Temp Pulse Resp B/P (MAP) Pulse Ox O2 Delivery O2 Flow Rate FiO2 08/08/25 09:24 98.4 91 16 107/52 (70) 99 98.4 08/08/25 09:24 91 16 99 Room Air* 0 21 08/08/25 08:01 97.8 88 14 102/50 (67) 100 97.8 08/08/25 07:23 Nasal Cannula* 2 28 08/08/25 07:00 93 16 113/65 (81) 100 08/08/25 06:00 89 14 120/72 (88) 100 08/08/25 05:00 99 18 118/47 (70) 92 08/08/25 04:00 104 16 110/54 (72) 98 08/08/25 03:53 97 08/08/25 03:22 98.0 100 16 121/73 (89) 98 98.0 08/08/25 03:22 100 16 98 Nasal Cannula* 2 28 Laboratory Tests Test 08/08/25 01:17 White Blood Count 6.4 10^3/uL (4.4-10.8) Medications Medications Dose Ordered Sig/Toño Route Start Time Stop Time Status Last Admin Dose Admin Diagnostic Test (Pha) 1 strip ONCE STAT 08/08/25 02:13 08/08/25 02:18 DC 08/08/25 02:13 1 STRIP Insulin Human Regular 6 units ONCE ONCE IV 08/08/25 02:15 08/08/25 02:18 DC 08/08/25 03:39 6 UNITS Ketorolac Tromethamine 15 mg ONCE ONCE IV 08/08/25 04:00 08/08/25 04:01 DC 08/08/25 04:01 15 MG Metoclopramide HCl 5 mg ONCE ONCE IV 08/08/25 03:15 08/08/25 03:16 DC 08/08/25 03:19 5 MG Ondansetron HCl 4 mg ONCE ONCE IV 08/08/25 00:45 08/08/25 00:46 PR 08/08/25 01:04 4 MG Pantoprazole Sodium 40 mg ONCE ONCE IV 08/08/25 01:00 08/08/25 01:01 DC 08/08/25 01:04 40 MG Sodium Chloride 1,000 ml @ 1,000 mls/hr Q1H ONCE IV 08/08/25 00:45 08/08/25 01:44 DC 08/08/25 01:04 1,000 MLS/HR Sodium Chloride 1,000 ml @ 1,000 mls/hr Q1H ONCE IV 08/08/25 04:45 08/08/25 05:44 DC 08/08/25 04:45 1,000 MLS/HR Assessment/Plan Assessment/Plan Assessment: Diabetic keto-acidosis, Uncontrolled diabetes, Intractable nausea and vomiting, Plan: Admit to [facility], IV insulin drip, IV hydration, Manage/Monitor electrolytes closely, BMP Q 6 hours, Antiemetics, Home mediation reconciled, Plan discussed with: Patient My Orders Orders - LORRAINE WILD Procedure Category Date Status Time Admit ADMIT 08/08/25 Transmitted 10:13 Code Status CODE 08/08/25 Transmitted 10:13 Hydrocodone-Acet PHA 08/08/25 Logged 5/325mg Tab ([place] 10:15 Ondansetron Hcl PHA 08/08/25 Logged (Zofran) 10:15 Docusate Sodium PHA 08/08/25 Logged Capsule (Colace 10:15 Complete Blood Count LAB 08/09/25 Verified 04:00 Comprehensive LAB 08/09/25 Verified Metabolic Panel 04:00 Npo (Nothing By DIET 08/08/25 Transmitted Mouth) Diet Lunch Condition: Critical [facility] 08/08/25 In Process 10:13 Acetaminophen Tablet [facility] 08/08/25 Logged (Tylenol Tablet) 10:15 Nitroglycerin [facility] 08/08/25 Logged Sublingual (Ntrostat 10:15 Morphine Sulfate [facility] 08/08/25 Logged Injection 10:15 Stat Ekg For Chest [facility] 08/08/25 In Process Pain 10:13 Notify Of Changes [facility] 08/08/25 In Process From Base 10:13 Vp Data For [facility] 08/08/25 In Process 24 Hours 10:13 Emergency Dysrhythmia [facility] 08/08/25 In Process Protocol 10:13 Rhythm Strips Once [facility] 08/08/25 In Process Every Shift 10:13 Oxygen By Nasal 08/08/25 Transmitted Cannula 10:13 Insulin Drip Protocol [facility] 08/08/25 In Process Sodium Chloride 0.9% [facility] 08/08/25 Logged 10:15 Sodium Chloride 0.9% [facility] 08/08/25 Transmitted 14:15 Insulin Algorithm # 1 [facility] 08/08/25 Transmitted 10:15 Dextrose 50% Syringe [facility] 08/08/25 Transmitted 10:15 Glucose Blood [facility] 08/08/25 Transmitted (Accu-Chek Comfort 10:30 Phosphorus LAB 08/08/25 Logged 10:13 Magnesium LAB 08/08/25 Logged 10:13 Osmolality, Serum LAB 08/08/25 Logged 10:13 Abg W/ Co-Ox RT 08/08/25 Logged 10:13 Basic Metabolic Panel LAB 08/08/25 Logged 12:00 Basic Metabolic Panel LAB 08/08/25 Logged 18:00 Basic Metabolic Panel LAB 08/09/25 Verified 00:00 Basic Metabolic Panel LAB 08/09/25 Verified 06:00 Urinalysis LAB 08/08/25 Logged 10:13 Neurological [facility] 08/08/25 In Process Assessment 10:13 Vs/Hemodynamics [facility] 08/08/25 In Process 10:13 Acetone LAB 08/08/25 Logged 10:13 Long Acting Insulin PHA 08/08/25 Transmitted 10:15 Long Acting Insulin PHA 08/08/25 Transmitted 22:00 D5 1/2 Ns Potassium PHA 08/08/25 Transmitted 20meq 10:15 Date of Service: Aug 08, 2025 Billing Provider: LORRAINE WILD Common Visit Codes: [id number] INP/OBS CARE (HIGH) LORRAINE WILD Aug 08, 2025 10:24
[2025-08-08] MEDS: ACCU-CHEK COMFORT CURVE STRIP VI SCH (10:30)
[2025-08-08 10:31] LABS: Base Excess -15.2 mmol/L (-2.0-3.0)
[2025-08-08] MEDS: SODIUM CHLORIDE 0.9% 1,000 ML IV SCH ×2 (11:21→18:07)
[2025-08-08] MEDS: THIAMINE HCL 100 MG TAB PO ONE (11:22)
[2025-08-08] MEDS: MULTIPLE VITAMIN TAB PO ONE (11:22)
[2025-08-08] MEDS: FOLIC ACID 1 MG TAB PO ONE (11:22)
[2025-08-08 11:27] LABS: Magnesium 2.1 mg/dL (1.6-2.6)
[2025-08-08] MEDS: INSULIN DRIP 100 UNIT/100ML 100 ML IV SCH (11:42)
[2025-08-08] MEDS: D5W/SOD CHL 0.45%/KCL 20MEQ 1,000 ML IV ONE (12:15)
[2025-08-08] MEDS: HYDROcodone-ACET 5/325MG TAB PO PRN (12:22)
[2025-08-08 12:47] LABS: Chloride 102 mmol/L (98-107); Potassium 5.0 mmol/L (3.5-5.1); Sodium 139 mmol/L (136-145)
[2025-08-08 12:48] LABS: Anion Gap 22 (5-15)
[2025-08-08 12:50] LABS: Calcium 8.1 mg/dL (8.7-10.4); Carbon Dioxide 15 mmol/L (20-31)
[2025-08-08 12:53] LABS: BUN/Creatinine Ratio 9.7 (10.0-20.0); Blood Urea Nitrogen 11 mg/dL (9-23)
[2025-08-08 12:54] LABS: Glucose 198 mg/dL (74-106)
[2025-08-08 13:03] LABS: Urine Protein, UAD TRACE (Negative)
[2025-08-08] MEDS: INSULIN LANTUS (GLARGINE) 1 /0.01ml (100units/ml) SC ONE (15:20)
[2025-08-08 18:46] LABS: Chloride 104 mmol/L (98-107); Potassium 4.5 mmol/L (3.5-5.1)
[2025-08-08 18:47] LABS: Anion Gap 16 (5-15)
[2025-08-08 18:52] LABS: BUN/Creatinine Ratio 8.7 (10.0-20.0)
[2025-08-08 19:25] LABS: Blood Urea Nitrogen 8 mg/dL (9-23); Calcium 8.2 mg/dL (8.7-10.4); Carbon Dioxide 16 mmol/L (20-31); Glucose 216 mg/dL (74-106); Sodium 136 mmol/L (136-145)
[2025-08-08] MEDS ORDERED: ACCU-CHEK COMFORT CURVE STRIP VI ONE (21:15)
[2025-08-08] MEDS ORDERED: INSULIN LANTUS (GLARGINE) 1 /0.01ml (100units/ml) SC SCH (22:00)
[2025-08-09] MEDS ORDERED: MULTIPLE VITAMIN TAB PO SCH (10:00)
[2025-08-09] MEDS ORDERED: THIAMINE HCL 100 MG TAB PO SCH (10:00)
[2025-08-09] MEDS ORDERED: FOLIC ACID 1 MG TAB PO SCH (10:00)
== END 2025-08-08 19:20 | disposition left against medical advice (07) | DRG 420 ==
LOC: EDBD 23:24 → ER 23:27 → OVERFLOW 08-08 10:13
PROVIDERS: ADMIT Nurse Practitioner Family; ATTEND Nurse Practitioner Family
DX: E11.10 Type 2 diabetes mellitus with ketoacidosis without coma (principal); Z59.00 Homelessness unspecified; F17.210 Nicotine dependence, cigarettes, uncomplicated; F32.A Depression, unspecified; F41.9 Anxiety disorder, unspecified; Z53.29 Procedure and treatment not carried out because of patient's decision for other reasons; Z88.0 Allergy status to penicillin; Z88.8 Allergy status to other drugs, medicaments and biological substances; I25.2 Old myocardial infarction; Z91.199 Patient's noncompliance with other medical treatment and regimen due to unspecified reason
CPT/HCPCS: 36415; 36600; 80048; 80053; 80320; 81001; 82010; 82805; 82962; 83735; 83930; 84100; 85025; 93005; 96361; 96374; 96375; G0378; J1815; J1885; J2405; J2470

== ENCOUNTER 2025-08-23 11:52 | Emergency (ER) | payer MEDICAID ==
[~2025-08-23] VITALS: Ht 172.7 cm; Wt 77.5 kg
[2025-08-23 11:58] VITALS: BP 120/70; PULSE 105; RESP 16; TEMP 98.7; O2SAT 98
[2025-08-23] MEDS ORDERED: SODIUM CHLORIDE 0.9% 1,000 ML IV ONE (12:00)
[2025-08-23] MEDS ORDERED: KETOROLAC TROMETH 30 MG/ML 1ML VIAL IV ONE (12:00)
--- NOTE | 2025-08-23 12:02 | ED.PDOC ---
History of Present Illness HPI Comments 30-year-old male who comes in with chief complaint of left lower quadrant pain. The patient states that the pain started approximately two days ago. The patient was walking on the street and then 911 was called and the patient was transported to our facility. At this time, the patient's pain is a 10/10. Th ere has been no dysuria or fever. The patient denies any nausea, vomiting or diarrhea. The patient has a history of diabetes and has been seen at our facility for DKA in the past. Time Seen by MD: 11:55 Primary Care Provider: n/a Reviewed Notes: Nurses Notes, Medications, Allergies (Allergies listed above.) Allergies: Coded Allergies: Penicillin G (Verified Allergy, Unknown, 07/01/22) Penicillins (Unverified Allergy, Unknown, 07/01/22) Piperacillin (Verified Allergy, Unknown, 10/23/23) Tazobactam (Verified Allergy, Unknown, 10/23/23) Home Meds Active Scripts Insulin Syringe/Needle U-100 (ADVOCATE INSULIN SYRINGE/) 1 Ml/31 G Mis, ML XX TID PRN, #100 3 Refills use for insulin administration Prov:ERIN PADILLA 06/13/25 Insulin Syringe/Needle U-100 (ADVOCATE INSULIN SYRINGE/) 0.5 Mg/31 G Mis, MG XX, #30 Prov:DOC PUENTE MD 04/17/25 Lancets (Freestyle Lancets) Lancets Mis, BOX XX, #1 Prov:DOC PUENTE MD 04/17/25 Blood Glucose Monitoring Suppl (D-Care Glucometer Kit/Glu W/Device) 1 Kit Kit, KIT XX, #1 Prov:DOC PUENTE MD 04/17/25 Insulin Glargine (Lantus) 100 Unit/Ml Inj, 30 UNIT SC Q12HR for 30 Days, #30 INJ Prov:DOC PUENTE MD 04/17/25 Insulin Glargine (Lantus Solostar) 100 Unit/Ml Inj, 30 UNITS SC BID for 30 Days, #1 INJ 5 Refills Prov:EDGARDO SILVERIO MD 11/07/24 Insulin Syringes (Disposable) (Bd Insulin Syringe Luer-L) 1 Ml Mis, ML XX 6XD, #120 3 Refills Prov:EDGARDO SILVERIO MD 11/07/24 Insulin Syringe/Needle U-100 (ADVOCATE INSULIN SYRINGE/) 0.5 Mg/31 G Mis, APPLIC XX, #100 Use as directed Prov:EDGARDO SILVERIO MD 11/07/24 Blood Glucose Monitoring Suppl (D-Care Glucometer Kit/Glu W/Device) 1 Kit Kit, KIT SC 5XD PRN, #1 1 Refill please check serum glucose before each meal. Prov:EDGARDO SILVERIO MD 11/07/24 Information Source: Patient, Emergency Med Personnel Mode of Arrival: EMS Severity: Moderate Timing: Days Duration: Since onset Prehospital treatment: IVF Associated signs and symptoms Left-sided abdominal pain Past Medical History PAST MEDICAL HISTORY: Anxiety, Depression, DM Surgical History (Other): Left elbow surgery Family History Family History: Family hx of DM Social History Smoker: Cigarettes Alcohol: Heavy Drugs: Methamphetamine Lives In: Homeless Constitutional: denies: chills, diaphoresis, fatigue, fever, malaise, sweats, weakness, others EENTM: denies: blurred vision, double vision, ear bleeding, ear discharge, ear drainage, ear pain, ear ringing, eye pain, eye redness, hearing loss, mouth pain, mouth swelling, nasal discharge, nose bleeding, nose congestion, nose pain, photophobia, tearing, throat pain, throat swelling, voice changes, others Respiratory: denies: cough, hemoptysis, orthopnea, SOB at rest, shortness of breath, SOB with excertion, stridor, wheezing, others Cardiovascular: denies: chest pain, dizzy spells, diaphoresis, Dyspnea on exertion, edema, irregular heart beat, left arm pain, lightheadedness, palpitations, PND, syncope, others Gastrointestinal: reports: abdominal pain; denies: abdomen distended, blood streaked bowels, constipated, diarrhea, dysphagia, difficulty swallowing, hematemesis, melena, nausea, poor appetite, poor fluid intake, rectal bleeding, rectal pain, vomiting, others Genitourinary: denies: burning, dysuria, flank pain, frequency, hematuria, inc ontinence, penile discharge, penile sore, pain, testicle pain, testicle swelling, urgency, others Neurological: denies: dizziness, fainting, headache, left sided numbness, left sided weakness, numbness, paresthesia, pre-existing deficit, right sided numbness, right sided weakness, seizure, speech problems, tingling, tremors, weakness, others Musculoskeletal: denies: back pain, gout, joint pain, joint swelling, muscle pain, muscle stiffness, neck pain, others Integumetry: denies: bruises, change in color, change in hair/nails, dryness, laceration, lesions, lumps, rash, wounds, others Allergic/Immunocompromised: denies: Difficulty Healing, Frequent Infections, Hives, Itching, others Hematologic/Lymphatic: denies: anemia, blood clots, easy bleeding, easy bruising, swollen glands, others Endocrine: denies: excessive hunger, excessive sweating, excessive thirst, excessive urination, flushing, intolerance to cold, intolerance to heat, unexplained weight gain, unexplained weight loss, others Psychiatric: denies: anxiety, bipolar disorder, depression, hopeless, panic disorder, schizophrenia, sleepless, suicidal, others Physical Exam General Appearance: Mild Distress HEENT: Normal ENT Inspection, Pharynx Normal, TMs Normal Neck: Full Range of Motion, Non-Tender, Normal, Normal Inspection Respiratory: Chest Non-Tender, Lungs Clear, No Accessory Muscle Use, No Respiratory Distress, Normal Breath Sounds Cardiovascular: No Edema, No JVD, No Murmur, No Gallop, Normal Peripheral Pulses, Regular Rate/Rhythm Breast Exam: Deferred Gastrointestinal: LLQ, LUQ, No Organomegaly, No Pulsatile Mass, Normal Bowel Sounds, Soft, Tenderness Genitalia: Deferred Pelvic: Deferred Rectal: Deferred Extremities: No calf tenderness, Normal capillary refill, Normal inspection, Normal range of motion, Non-tender, No pedal edema Musculoskeletal : Apperance: Normal Neurologic: Alert, cause analyst II-XII nml as 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 Was a procedure done?: No Differential Dx Considerations may include: UTI, abdominal pain, generalized weakness, electrolyte imbalance X-Ray, Labs, Meds, VS Vital Signs Date Time Temp Pulse Resp B/P (MAP) Pulse Ox O2 Delivery O2 Flow Rate FiO2 08/23/25 11:58 98.7 105 16 120/70 98 98.7 IV Hep-Lock was established We attempted to draw blood work on this patient but the patient has eloped from the department The patient has now left Images Reviewed?: Images reviewed and evaluated by me Time of 1ST Reevaluation: 12:02 Reevaluation 1ST: Unchanged Patient Education/Counseling: Diagnosis, Treatment, Prognosis, Need For Follow Up Family Education/Counseling: No Family Present SEPSIS Sepsis Screen Physician Orders Complete Blood Count (08/23/25 11:55) Urinalysis (08/23/25 11:55) Heplock Iv (08/23/25 11:55) Basic Metabolic Panel (08/23/25 11:55) Acetone (08/23/25 11:55) Drug Screen (08/23/25 12:01) Vital Signs Date Time Temp Pulse Resp B/P (MAP) Pulse Ox O2 Delivery O2 Flow Rate FiO2 08/23/25 11:58 98.7 105 16 120/70 98 98.7 Departure 1 Departure Time of Disposition: 14:34 Impression: Primary Impression: Abdominal pain of unknown etiology Disposition: 07 LEFT AWOL/ELOPED Condition: Fair Critical Care Note Critical Care Time?: No Stability Stability form required: No Heart Score Heart Score: Heart Score Response (Comments) Value History N/A 0 EKG N/A 0 Age N/A 0 Risk Factors N/A 0 Troponin N/A 0 Total 0 JACKY COVINGTON MD Aug 23, 2025 12:02
== END 2025-08-23 14:35 | disposition left against medical advice (07) ==
LOC: ER 11:52 → EDBD 11:52 → ER 14:35
DX: R10.32 Left lower quadrant pain (principal); F17.210 Nicotine dependence, cigarettes, uncomplicated; F19.90 Other psychoactive substance use, unspecified, uncomplicated; F10.90 Alcohol use, unspecified, uncomplicated; F41.9 Anxiety disorder, unspecified; F32.A Depression, unspecified; E11.9 Type 2 diabetes mellitus without complications; Z79.899 Other long term (current) drug therapy; Z88.0 Allergy status to penicillin; Z79.4 Long term (current) use of insulin; Z59.00 Homelessness unspecified; Y90.9 Presence of alcohol in blood, level not specified
CPT/HCPCS: 82947

== ENCOUNTER 2025-10-28 20:50 | Emergency (ER) | payer MEDICAID ==
[~2025-10-28] VITALS: Ht 175.3 cm; Wt 72.6 kg
[2025-10-28 21:10] VITALS: O2SAT 100
--- NOTE | 2025-10-28 21:13 | ECG ---
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
--- NOTE | 2025-10-28 21:23 | ED.PDOC ---
HPI Comments 30-year-old male who came to ER for chest pains. Patient has history of diabetes/diabetic ketoacidosis, alcohol and substance abuse. States he has been experiencing chest pain since last night, left-sided chest pains, stabbing, nonradiating. Denies any nausea or vomiting. Denies any recent trauma. Blood sugar on scene was 175 Chief Complaint: Chest Pain Time Seen by MD: 21:22 Primary Care Provider: n/a Reviewed Notes: Nurses Notes Allergies: Coded Allergies: Penicillin G (Verified Allergy, Unknown, 07/01/22) Penicillins (Unverified Allergy, Unknown, 07/01/22) Piperacillin (Verified Allergy, Unknown, 10/23/23) Tazobactam (Verified Allergy, Unknown, 10/23/23) Home Meds Active Scripts Insulin Syringe/Needle U-100 (ADVOCATE INSULIN SYRINGE/) 1 Ml/31 G Mis, ML XX TID PRN, #100 3 Refills use for insulin administration Prov:ERIN MITTAL 06/13/25 Insulin Syringe/Needle U-100 (ADVOCATE INSULIN SYRINGE/) 0.5 Mg/31 G Mis, MG XX, #30 Prov:DOC PUENTE MD 04/17/25 Lancets (Freestyle Lancets) Lancets Mis, BOX XX, #1 Prov:DOC PUENTE MD 04/17/25 Blood Glucose Monitoring Suppl (D-Care Glucometer Kit/Glu W/Device) 1 Kit Kit, KIT XX, #1 Prov:DOC PUENTE MD 04/17/25 Insulin Glargine (Lantus) 100 Unit/Ml Inj, 30 UNIT SC Q12HR for 30 Days, #30 INJ Prov:DOC PUENTE MD 04/17/25 Insulin Glargine (Lantus Solostar) 100 Unit/Ml Inj, 30 UNITS SC BID for 30 Days, #1 INJ 5 Refills Prov:EDGARDO SILVERIO MD 11/07/24 Insulin Syringes (Disposable) (Bd Insulin Syringe Luer-L) 1 Ml Mis, ML XX 6XD, #120 3 Refills Prov:EDGARDO SILVERIO MD 11/07/24 Insulin Syringe/Needle U-100 (ADVOCATE INSULIN SYRINGE/) 0.5 Mg/31 G Mis, APPLIC XX, #100 Use as directed Prov:EDGARDO SILVERIO MD 11/07/24 Blood Glucose Monitoring Suppl (D-Care Glucometer Kit/Glu W/Device) 1 Kit Kit, KIT SC 5XD PRN, #1 1 Refill please check serum glucose before each meal. Prov:EDGARDO SILVERIO MD 11/07/24 Information Source: Patient, Emergency Med Personnel Mode of Arrival: EMS Past Medical History PAST MEDICAL HISTORY: Anxiety, Depression, DM Past Medical History (Other): Diabetic ketoacidosis Family History Family History: Family hx of DM Social History Smoker: Cigarettes Alcohol: Heavy Drugs: Methamphetamine Lives In: Homeless Constitutional: denies: chills, diaphoresis, fatigue, fever, malaise, sweats, weakness, others EENTM: denies: blurred vision, double vision, ear bleeding, ear discharge, ear drainage, ear pain, ear ringing, eye pain, eye redness, hearing loss, mouth pain, mouth swelling, nasal discharge, nose bleeding, nose congestion, nose pain, photophobia, tearing, throat pain, throat swelling, voice changes, others Respiratory: denies: cough, hemoptysis, orthopnea, SOB at rest, shortness of breath, SOB with excertion, stridor, wheezing, others Cardiovascular: reports: chest pain; denies: dizzy spells, diaphoresis, Dyspnea on exertion, edema, irregular heart beat, left arm pain, lightheadedness, palpitations, PND, syncope, others Gastrointestinal: denies: abdomen distended, abdominal pain, blood streaked bowels, constipated, diarrhea, dysphagia, difficulty swallowing, hematemesis, melena, nausea, poor appetite, poor fluid intake, rectal bleeding, rectal pain, vomiting, others Genitourinary: denies: burning, dysuria, flank pain, frequency, hematuria, incontinence, penile discharge, penile sore, pain, testicle pain, testicle swelling, urgency, others Neurological: denies: dizziness, fainting, headache, left sided numbness, left sided weakness, numbness, paresthesia, pre-existing deficit, right sided numbness, right sided weakness, seizure, speech problems, tingling, tremors, weakness, others Musculoskeletal: denies: back pain, gout, joint pain, joint swelling, muscle pain, muscle stiffness, neck pain, others Integumetry: denies: bruises, change in color, change in hair/nails, dryness, laceration, lesions, lumps, rash, wounds, others Allergic/Immunocompromised: denies: Difficulty Healing, Frequent Infections, Hives, Itching, others Hematologic/Lymphatic: denies: anemia, blood clots, easy bleeding, easy bruising, swollen glands, others Endocrine: denies: excessive hunger, excessive sweating, excessive thirst, excessive urination, flushing, intolerance to cold, intolerance to heat, un explained weight gain, unexplained weight loss, others Psychiatric: denies: anxiety, bipolar disorder, depression, hopeless, panic disorder, schizophrenia, sleepless, suicidal, others Physical Exam General Appearance: No Apparent Distress, Normal HEENT: Normal ENT Inspection, Pharynx Normal, TMs Normal Neck: Full Range of Motion, Non-Tender, Normal, Normal Inspection Respiratory: Lungs Clear, No Accessory Muscle Use, No Respiratory Distress, Normal Breath Sounds, Other (chest wall ttp) Cardiovascular: No Edema, No JVD, No Murmur, No Gallop, Normal Peripheral Pulses, Regular Rate/Rhythm Breast Exam: (L) Tenderness, Deferred Gastrointestinal: No Organomegaly, Non Tender, No Pulsatile Mass, Normal Bowel Sounds, Soft Genitalia: Deferred Pelvic: Deferred Rectal: Deferred Extremities: No calf tenderness, Normal capillary refill, Normal inspection, Normal range of motion, Non-tender, No pedal edema Musculoskeletal : Apperance: Normal Neurologic: Alert, station jailer II-XII nml as 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 Was a procedure done?: No CP Differential Dx Differential Diagnosis: Angina, Anxiety / Panic Attack Differential Diagnosis: Angina, Chest Wall Pain, Costochondritis, Esophageal reflux/spasm, Gastritis, Myocardial Infarction X-Ray, Labs, Meds, VS Vital Signs Date Time Temp Pulse Resp B/P (MAP) Pulse Ox O2 Delivery O2 Flow Rate FiO2 10/28/25 21:48 88 10/28/25 21:10 98.1 98 18 136/82 100 98.1 10/28/25 20:52 102 Lab Test 10/28/25 21:58 10/28/25 21:00 Range/Units Troponin I High Sensitivity < 3 L < 3 L </=54 ng/L White Blood Count 5.9 4.4-10.8 10^3/uL Red Blood Count 5.68 4.5-5.90 10^6/uL Hemoglobin 17.3 13.5-17.5 g/dL Hematocrit 50.2 41.0-53.0 % Mean Corpuscular Volume 88.5 80.0-100.0 fL Mean Corpuscular Hemoglobin 30.4 28.0-32.0 pg Mean Corpuscular Hemoglobin Concent 34.3 32.0-36.0 g/dL Red Cell Distribution Width 12.9 11.8-14.3 % Platelet Count 197 140-450 10^3/uL Mean Platelet Volume 9.1 6.9-10.8 fL Neutrophils (%) (Auto) 48.5 37.0-80.0 % Lymphocytes (%) (Auto) 30.8 10.0-50.0 % Monocytes (%) (Auto) 14.4 H 0.0-12.0 % Eosinophils (%) (Auto) 2.8 0.0-7.0 % Basophils (%) (Auto) 3.5 H 0.0-2.0 % Neutrophils # (Auto) 2.9 1.6-8.6 10 ^3/uL Lymphocytes # (Auto) 1.8 0.4-5.4 10 ^3/uL Monocytes # (Auto) 0.9 0-1.3 10 ^3/uL Eosinophils # (Auto) 0.2 0-0.8 10 ^3/uL Basophils # (Auto) 0.2 0-0.2 10 ^3/uL Nucleated Red Blood Cells 0.3 % Sodium Level 137 136-145 mmol/L Potassium Level 4.4 3.5-5.1 mmol/L Chloride Level 97 L 98-107 mmol/L Carbon Dioxide Level 28 20-31 mmol/L Anion Gap 12 5-15 Blood Urea Nitrogen 17 9-23 mg/dL Creatinine 0.90 0.700-1.30 mg/dL Glomerular Filtration Rate Calc 117 >90 mL/min BUN/Creatinine Ratio 18.9 10.0-20.0 Serum Glucose 264 H 74-106 mg/dL Calcium Level 9.6 8.7-10.4 mg/dL Time of 1ST Reevaluation: 21:20 Reevaluation 1ST: Unchanged Patient Education/Counseling: Diagnosis, Treatment Family Education/Counseling: No Family Present SEPSIS Sepsis Screen Date sepsis recognized/suspect: Oct 28, 2025 Time Sepsis recognized/suspect: 2114 Recent Procedure: No On Antibiotic Therapy: No Respiratory Rate >20: No Heart Rate >90: No Temp<36 C (96.8 F) or >38.3 C: No SBP <90 or MAP <65 mmHG: No New Acute Mental Status Change: No Is the patient on CPAP, BIPAP,: No Physician Orders Urinalysis (10/28/25 UNK) Chest Portable (10/28/25 21:11) Electrocardigram (10/28/25 22:11) Vital Signs Date Time Temp Pulse Resp B/P (MAP) Pulse Ox O2 Delivery O2 Flow Rate FiO2 10/28/25 21:48 88 10/28/25 21:10 98.1 98 18 136/82 100 98.1 10/28/25 20:52 102 Laboratory Tests Test 10/28/25 21:00 White Blood Count 5.9 10^3/uL (4.4-10.8) Departure 1 Departure Time of Disposition: 22:50 Impression: Primary Impression: Chest wall pain Additional Impression: Bronchitis Disposition: HOME / SELF CARE / HOMELESS Condition: Good e-Prescriptions Ibuprofen Micronized (MOTRIN TABLET) 600 Mg Tb 600 MG PO TID PRN, #40 TAB *Black box warning-NSAIDS can increase risk of NV & hypertension, GI irritation, ulceration, bleed, perferation. Do not use post cardiac surgery. Use short duration/lowest effective dose. Prov: LASHON ZIMMERMAN MD 10/28/25 Discharged With: Self Critical Care Note Critical Care Time?: No Stability Stability form required: No Heart Score Heart Score: Heart Score Response (Comments) Value History Slightly Suspicious 0 EKG Normal 0 Age <45 0 Risk Factors 1 or 2 risk factors 1 Troponin Normal limit 0 Total 1 I personally scribed for LASHON ZIMMERMAN MD ([email or web address]) on 10/28/25 at 21:22. Electronically submitted by Rell Cotton ([email or web address]). LASHON ZIMMERMAN MD Oct 28, 2025 21:22
[2025-10-28 21:30] LABS: Hematocrit 50.2 % (41.0-53.0); Hemoglobin 17.3 g/dL (13.5-17.5); Mean Corpuscular Hemoglobin 30.4 pg (28.0-32.0); Mean Corpuscular Volume 88.5 fL (80.0-100.0); Nucleated Red Blood Cells % 0.3 %
[2025-10-28 21:38] LABS: Potassium 4.4 mmol/L (3.5-5.1); Sodium 137 mmol/L (136-145)
[2025-10-28 21:39] LABS: Anion Gap 12 (5-15); Carbon Dioxide 28 mmol/L (20-31)
[2025-10-28 21:40] LABS: Calcium 9.6 mg/dL (8.7-10.4)
[2025-10-28 21:44] LABS: BUN/Creatinine Ratio 18.9 (10.0-20.0); Blood Urea Nitrogen 17 mg/dL (9-23)
[2025-10-28 21:49] LABS: Chloride 97 mmol/L (98-107); Glucose 264 mg/dL (74-106)
--- NOTE | 2025-10-28 22:07 | DVH ---
EXAM: XY CHEST PORTABLE HISTORY: cp TECHNIQUE: 1 view of the chest COMPARISON: XY CHEST PORTABLE on DOS: 06/12/25 FINDINGS/IMPRESSION: LUNGS: No pleural effusion, consolidation, or pneumothorax. Peribronchial thickening, which is nonspecific however may represent infectious versus inflammatory bronchitis. MEDIASTINUM: Unremarkable. BONES: No acute osseous abnormality. OTHER: None.
[2025-10-28] MEDS ORDERED: IBU600T PO (22:51)
[2025-10-29 01:02] VITALS: BP 118/78; PULSE 102; RESP 16; TEMP 97.9
--- NOTE | 2025-10-30 06:41 | ECG ---
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
== END 2025-10-29 01:08 | disposition home or self-care (01) ==
LOC: EDBD 20:50 → EDUNIT# 20:50 → ER 20:50
DX: J40 Bronchitis, not specified as acute or chronic (principal); R07.89 Other chest pain; E11.9 Type 2 diabetes mellitus without complications; F41.9 Anxiety disorder, unspecified; F32.A Depression, unspecified; F17.210 Nicotine dependence, cigarettes, uncomplicated; Z88.0 Allergy status to penicillin
CPT/HCPCS: 36415; 71045; 80048; 84484; 85025; 93005